=== PATIENT | male | born 1945 | race Caucasian/White ===

== ENCOUNTER → 2016-11-14 | Day surgery (SDC) | payer MEDICARE ==
[~2016-11-14] MED LIST: ALLO300T2 PO; CARV6.252 PO; GABA300C5 PO; HYDR25TA5 PO; LACTATED RINGER'S 1000 ML INJ 1,000 ML ONE; LISI10TA3 PO; MULT-65 PO; NORC5TAB PO; PANT40TA3 PO; PROPOFOL 200 MG/20 ML AMP IV ONE
--- NOTE | 2016-11-14 11:24 | GIPROC ---
[facility] [address] [place], [address] EGD PROCEDURE REPORT EXAM DATE: 11/14/2016 PATIENT NAME: Merrill Do MR #: [id number] BIRTHDATE: 1945 ATTENDING: Jefferson Bryan MD ORDER #: [id number] OFFICER LIEUTENANT: Rosanna Rueda STATUS: outpatient INDICATIONS: The patient is a 71 yr old male here for an EGD due to follow up on DU PROCEDURE PERFORMED: EGD w/ biopsy MEDICATIONS: None and Per Anesthesia. TOPICAL ANESTHETIC: CONSENT: The patient understands the risks and benefits of the procedure and understands that these risks include, but are not limited to: sedation, allergic reaction, infection, perforation and/or bleeding. Alternative means of evaluation and treatment include, among others: physical exam, x-rays, and/or surgical intervention. The patient elects to proceed with this endoscopic procedure. medical equipment was checked for proper function. Hand hygiene and appropriate measures for infection prevention was taken. After the risks, benefits and alternatives of the procedure were thoroughly explained, Informed consent was verified, confirmed and timeout was successfully executed by the treatment team. The patient was anesthetized with topical anesthesia and the EC-[id number] ([id number]) endoscope was introduced through the mouth and advanced to the second portion of the duodenum. Retroflexed views revealed no abnormalities The gastroscope was then slowly withdrawn and removed. ESOPHAGUS: Jessica esophagitis, this was biopsied. STOMACH: There was erythematous moderate gastritis in the gastric body and gastric antrum. Multiple biopsies were performed. The endoscopy was otherwise normal. ADVERSE EVENTS: There were no complications. IMPRESSIONS: 1. Jessica esophagitis, this was biopsied 2. There was erythematous gastritis in the gastric body and gastric antrum; multiple biopsies were performed 3. Normal endoscopy otherwise 4. Retroflexed views revealed no abnormalities RECOMMENDATIONS: 1. Await biopsy results. Biopsy results will not be ready for 7-10 days. If you don't hear from us in two weeks, call our office for biopsy results. 2. Follow-up: GI clinic 3 week(s) PATIENT CONDITION: stable DISPOSITION: Home REPEAT EXAM: Jefferson Bryan MD eSigned: Jefferson Bryan MD 11/14/2016 11:24 AM cc: Jina Espitia [facility] PATIENT NAME: Merrill Do MR#: [id number]
== END | disposition home or self-care (01) ==
LOC: ESDC 09:25
PROVIDERS: ATTEND Internal Medicine Gastroenterology
DX: K26.9 Duodenal ulcer, unspecified as acute or chronic, without hemorrhage or perforation (principal); B37.81 Candidal esophagitis; K29.70 Gastritis, unspecified, without bleeding
CPT/HCPCS: 00740; 43239; 88305; 88312; J7120

== ENCOUNTER 2016-11-22 12:54 | Day surgery (SDC) | payer MEDICARE ==
--- NOTE | 2016-11-22 15:19 | RADRPT ---
EXAM DATE/TIME: 11/22/2016 00:00 [facility] COMPARISON : No previous studies available for comparison. INDICATIONS : CONSULT FOR RENAL CRYOABLATION OBJECTIVE: Temperature: 97.6 Heart Rate: 83 Blood Pressure: 212/113 Respiratory: 22 Oximetry: 95 PNEUMONIA VACCINE: YES HISTORY OF PRESENT ILLNESS: Patient is a 71-year-old white male with incidental discovery of a 3.9 cm right renal mass under going CT scan for gastrointestinal bleeding. The patient did undergo endoscopy and cauterization for the gastro intestinal bleed with no recurrence. The patient has no history of hematuria, weight loss, fatigue or other constitutional symptoms. The patient was seen by Dr. Pettit recommend a consultation for cryoablation. The only other active medical problem is low back pain for which the patient is un dergoing epidural injections. There is no history of cardiovascular disease, cerebral vascular diseas e or peripheral artery disease. PAST MEDICAL HISTORY : 1. Hypertension. 2. RHEUMATOID ARTHRITIS 3. DUODENAL ULCER 4. GI BLEED PAST SURGICAL HISTORY : 1. EGD- CAUTERIZED BLEEDING ULCER SOCIAL HISTORY : Alcohol useFEW BEERS A WEEK Tobacco;former. ALLERGIES: 1. NKDA MEDICATIONS: 1. Coreg (Carvedilol) q.d. 2. GABAPENTIN q.d. 3. PROTONIX q.d. 4. HCTZ q.d. IMAGING STUDIES: Review of CT scan from July 2016 [facility] demonstrates a 3.9 cm mass in the anterior aspect of the right kidney extending into the renal pelvis as well as exophytic to the kidney approac omar within 5 mm of the ascending colon. No adenopathy is identified. There is a simple cyst in the r ight kidney measuring 4 cm. No solid left renal masses are identified. ASSESSMENT: The risks and benefits of the procedure were explained to the patient and his particularly the potential for damage to the colon or the renal collecting system secondary to the extent of the n eoplasm. They still wished to proceed with percutaneous treatment as opposed to open surgery. PLAN: The patient is to undergo cryoablation on 11/23/16 TIME SPENT: 30 minutes Julio Vaz MD on November 22, 2016 at 15:12 Board Certified Radiologist. This report was verified electronically.
[2016-11-23] MEDS ORDERED: PANT40TA3 PO (07:30)
[2016-11-23] MEDS ORDERED: HYDR25TA5 PO (07:30)
[2016-11-23] MEDS ORDERED: CARV6.252 PO (07:30)
[2016-11-23] MEDS ORDERED: GABA300C5 PO (07:30)
[2016-11-23] MEDS ORDERED: NORC5TAB PO (07:30)
[2016-11-23] MEDS ORDERED: ALLO300T2 PO (07:30)
[2016-11-23] MEDS ORDERED: MULT-65 PO (07:30)
[2016-11-23] MEDS ORDERED: LISI10TA3 PO (07:30)
== END 2016-11-22 14:30 | disposition home or self-care (01) ==
LOC: HROP 12:54 → HRIP 13:01 → HROP 14:30
PROVIDERS: ATTEND Urology
DX: N28.89 Other specified disorders of kidney and ureter (principal)

== ENCOUNTER 2016-11-23 06:44 | Day surgery (SDC) | payer MEDICARE ==
[~2016-11-23] VITALS: Ht 175.3 cm; Wt 109.1 kg
[2016-11-23 07:19] VITALS: BP 191/102; PULSE 72; RESP 20; TEMP 98; O2SAT 91
[2016-11-23] MEDS ORDERED: GABA300C5 PO (07:30)
[2016-11-23] MEDS ORDERED: CARV6.252 PO (07:30)
[2016-11-23] MEDS ORDERED: PANT40TA3 PO (07:30)
[2016-11-23] MEDS ORDERED: MULT-65 PO (07:30)
[2016-11-23] MEDS ORDERED: LISI10TA3 PO (07:30)
[2016-11-23] MEDS ORDERED: NORC5TAB PO (07:30)
[2016-11-23] MEDS ORDERED: ALLO300T2 PO (07:30)
[2016-11-23] MEDS ORDERED: HYDR25TA5 PO (07:30)
[2016-11-23 08:06] LABS: AUTOMATED NEUTROPHIL # 4.8 TH/MM3 (1.8-7.7); BASOPHIL % 0.5 % (0.0-2.0); EOSINOPHIL % 0.2 % (0.0-4.0); HEMATOCRIT 38.8 % (39.0-51.0); LYMPH % 20.7 % (9.0-44.0); LYMPHOCYTE # 1.4 TH/MM3 (1.0-4.8); MEAN CELL VOLUME 92.5 FL (80.0-100.0); MEAN CORPUSCULAR HEMOGLOBIN 31.1 PG (27.0-34.0); MEAN CORPUSCULAR HGB CONC 33.6 % (32.0-36.0); MONO % 9.3 % (0.0-8.0); NEUT % 69.3 % (16.0-70.0); PLATELET COUNT 178 TH/MM3 (150-450); RED BLOOD COUNT 4.19 MIL/MM3 (4.50-5.90); RED CELL DISTRIBUTION WIDTH 19.5 % (11.6-17.2); WHITE BLOOD COUNT 6.9 TH/MM3 (4.0-11.0)
[2016-11-23 08:09] LABS: HEMO FLAGS AUTO DIFF
[2016-11-23 08:15] LABS: APTT (PATIENT) 24.4 SEC (24.3-30.1); PROTHROMBIN TIME - PATIENT 10.9 SEC (9.8-11.6)
[2016-11-23] MEDS ORDERED: METOPROLOL TARTRATE 25 MG TAB PO PRN (08:15)
[2016-11-23] MEDS ORDERED: INSULIN HUMAN REGULAR 1,000 UNITS/10 ML VIAL SQ PRN (08:15)
[2016-11-23] MEDS ORDERED: SODIUM CHLORID 0.9% 500 ML IV PRN (08:15)
[2016-11-23] MEDS ORDERED: ceFAZolin 2 GM PREMIX 50 ML IV SCH (08:15)
[2016-11-23] MEDS ORDERED: POVIDONE IODINE 5% (ANTISEPSIS KIT) 4 APPLICATIONS EACH NARE PRN (08:15)
[2016-11-23] MEDS ORDERED: LACTATED RINGER'S 1000 ML IV PRN (08:15)
[2016-11-23] MEDS ORDERED: SODIUM CHLOR 0.9% 1000 ML INJ 1,000 ML IV SCH (08:15)
[2016-11-23] MEDS ORDERED: CHLORHEXIDINE GLUCONATE 2 % 1 PACK (2 CLOTHS) TOPICAL PRN (08:15)
[2016-11-23 08:17] LABS: BICARBONATE 23.5 MEQ/L (21.0-32.0); POTASSIUM 3.8 MEQ/L (3.5-5.1)
[2016-11-23 09:00] LABS: BANDS 3 % (0-6); EOSINOPHILS 2 % (0-4); METAMYELOCYTES 2 % (0-1); OVALOCYTES 1+ (NORMAL); POLYS (SEG NEUTROPHILS) 68 % (16-70); WBC DIFF SAMPLE 100
[2016-11-23 09:01] LABS: ACANTHOCYTES OCC (NORMAL); PLATELET ESTIMATE SMEAR NORMAL (NORMAL); PLATELET MORPHOLOGY NORMAL (NORMAL); SCAN/DIFF FINAL DIFF MANUAL
[2016-11-23] MEDS ORDERED: LIDOCAINE 1%/EPINEPHrine 1:100,000 SOLN 20 ML VIAL ONE (09:20)
[2016-11-23] MEDS ORDERED: MIDAZOLAM HCL 2 MG/2 ML VIAL ONE (12:14)
[2016-11-23] MEDS ORDERED: fentaNYL CITRATE 250 MCG/5 ML AMP ONE (12:14)
[2016-11-23] MEDS ORDERED: MORPHINE SULFATE 4 MG/ML INJ ONE (12:15)
[2016-11-23] MEDS ORDERED: *LABETALOL HCL 100 MG/20 ML VIAL PERIprocedural Use ONLY ONE (12:21)
[2016-11-23] MEDS ORDERED: PHENYLEPH/NS 1000 MCG/10 ML SYR IV ONE (12:25)
[2016-11-23] MEDS ORDERED: ePHEDrine/NS 25 MG/5 ML SYR IV ONE (12:25)
[2016-11-23] MEDS ORDERED: DEXAMETHASONE SOD PHOS PF 10 MG/ML VIAL IV ONE (12:25)
[2016-11-23] MEDS ORDERED: PROPOFOL 200 MG/20 ML AMP IV ONE (12:25)
[2016-11-23] MEDS ORDERED: ONDANSETRON HCL 4 MG/2 ML VIAL IV PUSH ONE (12:25)
[2016-11-23 12:40] VITALS: BP 182/94; PULSE 62; RESP 20; TEMP 97.5; O2SAT 92
[2016-11-23 12:55] VITALS: BP 157/92; PULSE 70; RESP 20; O2SAT 92
[2016-11-23 13:25] VITALS: BP 145/68; PULSE 69; RESP 20; O2SAT 92
--- NOTE | 2016-11-23 13:26 | RADRPT ---
EXAM DATE/TIME: 11/23/2016 09:50 [facility] COMPARISON: No previous studies available for comparison. INDICATIONS : Right renal mass. BIOPSY SITE: Right Anesthesia and pain control was provided by the Anesthesia department. Vancomycin within 2 hrs of procedure, Ancef (or alternative) within 1 hr of procedure start. DEVICE(S): 1.) 18 gauge Temno core biopsy needle MEDICAL HISTORY : Hypertension. SURGICAL HISTORY : None. ENCOUNTER: Initial ACUITY: 1 day PAIN SCORE: 0/10 LOCATION: Right A total of two core specimen(s) were obtained and sent to the laboratory for pathologic evaluation. PROCEDURE: 1. CT guided renal biopsy. 2. Conscious sedation with continuous EKG and oximetry monitoring. 3. EKG and oximetry remained stable throughout the procedure. Prior to the procedure informed consent was obtained. Any appropriate prior imaging studies were rev iewed. Using automated exposure control and adjustment of the mA and/or kV according to patient size, radiat ion dose was kept as low as reasonably achievable to obtain optimal diagnostic quality images. The site was prepped in a sterile fashion. Full sterile technique was used, including cap, mask, janeth rile gloves and gown and a large sterile sheet. Hand hygiene and 2% chlorhexidine and/or betadine/al cohol prep was utilized per protocol for cutaneous antisepsis. The skin and subcutaneous tissues wer e infiltrated with local anesthetic solution. With CT guidance the previously identified target was localized. Biopsy was performed using the presc ribed needle as above. Adequate hemostasis was obtained with compression at the puncture site. Follow-up CT scan reveals no hemorrhage. The patient tolerated the procedure well and there were no complications. The patient was returned to the Radiology Outpatient Unit in stable condition. CONCLUSION: Uncomplicated CT guided biopsy. Julio Vaz MD on November 23, 2016 at 13:25 Board Certified Radiologist. This report was verified electronically.
--- NOTE | 2016-11-23 13:27 | RADRPT ---
EXAM DATE/TIME: 11/23/2016 09:50 INDICATIONS : Right renal mass. Anesthesia and pain control was provided by the Anesthesia department. Vancomycin within 2 hrs of procedure, Ancef (or alternative) within 1 hr of procedure start. DEVICE(S): MEDICAL HISTORY : Hypertension. SURGICAL HISTORY : None. ENCOUNTER: Initial ACUITY: 1 day PAIN SCORE: 0/10 LOCATION: Right PROCEDURE : 1. CT guided cryoablation. Under sterile conditions and using aseptic technique with CT guidance the mass was localized and sati sfactory approach was taken to access the lesion. Using automated exposure control and adjustment of the mA and/or kV according to patient size, radiation dose was kept as low as reasonably achievable to obtain optimal diagnostic quality images. Yeti Data Cryoprobes were employed using percutaneous technique employing the prescribed probes. A freeze-thaw, freeze-thaw technique was employed and serial imaging demonstrated an ice ball encomp assing the entire lesion. Post procedure images demonstrate expected postoperative changes without e vidence of hematoma. CONCLUSION: Uncomplicated cryoablation as above. Julio Vaz MD on November 23, 2016 at 13:25 Board Certified Radiologist. This report was verified electronically.
--- NOTE | 2016-11-23 13:33 | PD.RAD ---
Post Procedure Progress Note Pre Procedure Diagnosis: (1) Renal cell carcinoma Post Procedure Diagnosis: (1) Renal cell carcinoma Procedure Date: Nov 23, 2016 Supervising Radiologist: Julio Vaz Anesthesia: General Plan of Activity Patient to Unit: ROPU Patient Condition: Good See PACS Report for procedural detail/treatment Biopsy Imaging Guidance: CT Side: Right Biopsy Procedure: Kidney Specimen: Core Biopsy (with cryoablation following) Julio Vaz MD Nov 23, 2016 13:33
[2016-11-23 13:55] VITALS: BP 141/91; PULSE 65; RESP 20; O2SAT 92
[2016-11-23 14:25] VITALS: BP 138/91; PULSE 65; RESP 20; O2SAT 92
--- NOTE | 2016-11-23 19:52 | EKG ---
Date Performed: 11/23/2016 Time Performed: 08:10:00 PTAGE: 71 years EKG: Sinus rhythm NORMAL ECG PREVIOUS TRACING : 03/02/2003 13.22 DOCTOR: Ashlyn Sun Interpretating Date/Time 11/23/2016 19:51:21
== END 2016-11-23 15:00 | disposition home or self-care (01) ==
LOC: HSDC 06:44 → HRIP 06:52 → HSDC 15:00
PROVIDERS: ATTEND Urology
DX: D30.01 Benign neoplasm of right kidney (principal); N28.89 Other specified disorders of kidney and ureter; I10 Essential (primary) hypertension; K26.9 Duodenal ulcer, unspecified as acute or chronic, without hemorrhage or perforation; K44.9 Diaphragmatic hernia without obstruction or gangrene
CPT/HCPCS: 00862; 50200; 50593; 77012; 77013; 80048; 85007; 85027; 85610; 85730; 88305; 93005; C2618; J0690; J1100; J2250; J2270; J2370; J2405; J3010; J7030

== ENCOUNTER 2016-12-01 12:49 | Day surgery (SDC) | payer MEDICARE ==
[~2016-12-01 12:49] MED LIST changes: -LACTATED RINGER'S 1000 ML INJ 1,000 ML ONE; -PROPOFOL 200 MG/20 ML AMP IV ONE
[2016-12-01 13:17] VITALS: BP 145/85; PULSE 102; RESP 20; TEMP 97.6; O2SAT 96
--- NOTE | 2016-12-01 14:06 | RADRPT ---
EXAM DATE/TIME: 12/01/2016 00:00 [facility] COMPARISON : INDICATIONS : f/u CRYO ABLATION OBJECTIVE: Temperature: 97.6 Heart Rate: 102 Blood Pressure: 145/85 Respiratory: 18 Oximetry: 96 PNEUMONIA VACCINE: NO HISTORY OF PRESENT ILLNESS: ? PAST MEDICAL HISTORY : 1. MASS ON RIGHT KIDNEY 2. DUODENAL ULCER 3. RIGHT INQUINAL SURGERY PAST SURGICAL HISTORY : 1. RIGHT INQUINAL HERNIA REPAIR 2. CRYO ABLATION MASS RIGHT KIDNEY SOCIAL HISTORY : ALLERGIES: 1. NKDA MEDICATIONS: NONE ASSESSMENT: The patient is post cryoablation of a right renal mass. The patient has no complaints post procedure. PLAN: The patient will followup with his urologist TIME SPENT: 10 minutes. Gage Ramirez MD on December 01, 2016 at 14:03 Board Certified Radiologist. This report was verified electronically.
== END 2016-12-01 13:35 | disposition home or self-care (01) ==
LOC: HRAD 12:49 → HRIP 13:11 → HRAD 13:35
DX: D30.01 Benign neoplasm of right kidney (principal); K26.9 Duodenal ulcer, unspecified as acute or chronic, without hemorrhage or perforation

== ENCOUNTER → 2017-02-20 | Outpatient (CLI) | payer MEDICARE ==
[~2017-02-20] MED LIST changes: +FLUT50SP EACH NARE
[2017-02-20 11:48] LABS: AUTOMATED NEUTROPHIL # 5.7 TH/MM3 (1.8-7.7); BASOPHIL % 0.6 % (0.0-2.0); EOSINOPHIL % 0.4 % (0.0-4.0); HEMATOCRIT 38.8 % (39.0-51.0); HEMO FLAGS DIFF FINAL; LYMPH % 15.6 % (9.0-44.0); LYMPHOCYTE # 1.2 TH/MM3 (1.0-4.8); MEAN CELL VOLUME 104.5 FL (80.0-100.0); MEAN CORPUSCULAR HEMOGLOBIN 36.1 PG (27.0-34.0); MEAN CORPUSCULAR HGB CONC 34.6 % (32.0-36.0); MONO % 8.6 % (0.0-8.0); NEUT % 74.8 % (16.0-70.0); PLATELET COUNT 212 TH/MM3 (150-450); RED BLOOD COUNT 3.71 MIL/MM3 (4.50-5.90); WHITE BLOOD COUNT 7.6 TH/MM3 (4.0-11.0)
[2017-02-20 12:09] LABS: BICARBONATE 21.4 MEQ/L (21.0-32.0); POTASSIUM 3.5 MEQ/L (3.5-5.1)
== END ==
LOC: CPRE 10:33
PROVIDERS: ATTEND Orthopaedic Surgery Orthopaedic Surgery of the Spine
DX: Z01.812 Encounter for preprocedural laboratory examination (principal); M48.06 Spinal stenosis, lumbar region
CPT/HCPCS: 36415; 80048; 85025

== ENCOUNTER → 2017-03-06 | Day surgery (SDC) | payer MEDICARE ==
[~2017-03-06] VITALS: Ht 175.3 cm; Wt 104.3 kg
[~2017-03-06] MED LIST changes: +*morphine SULFATE 8 MG/ML PERIprocedure ONLY ONE; +ACETAMINOPHEN/HYDROcodone 325 MG/5 MG TAB PO PRN; +BUPIVACAINE/EPINEPHRINE 0.25% 50 ML VIAL ONE; +CHLORHEXIDINE GLUCONATE 2 % 1 PACK (2 CLOTHS) TOPICAL PRN; +CHLORHEXIDINE GLUCONATE 4% SOLN 120 ML BTL TOPICAL SCH; +DEXAMETHASONE SOD PHOS 4 MG/ML VIAL ONE; +DO NOT ADM ANY ANTICOAGULANT DRUGS PRN; +GENTAMICIN SULFATE 80 MG/2 ML VIAL ONE; +HYDROmorphone HCL PF 2 MG/ML VIAL ONE; +INSULIN HUMAN REGULAR 1,000 UNITS/10 ML VIAL SQ PRN; +LACTATED RINGER'S 1000 ML IV PRN; +METOPROLOL TARTRATE 25 MG TAB PO PRN; +MIDAZOLAM HCL 2 MG/2 ML VIAL ONE; +NEOSTIGMINE 3 MG/3 ML SYR IV ONE; +ONDANSETRON HCL 4 MG/2 ML VIAL IV PUSH ONE; +PHENYLEPH/NS 1000 MCG/10 ML SYR IV ONE; +POVIDONE IODINE 5% (ANTISEPSIS KIT) 4 APPLICATIONS EACH NARE PRN; +PROPOFOL 200 MG/20 ML AMP IV ONE; +SODIUM CHLORID 0.9% 500 ML IV PRN; +ceFAZolin 2 GM PREMIX 50 ML IV SCH; +ceFAZolin INJ 1,000 MG VIAL IV ONE; +fentaNYL CITRATE 250 MCG/5 ML AMP ONE
[2017-03-06 10:29] VITALS: BP 147/89; PULSE 84; RESP 20; TEMP 97.8; O2SAT 96
[2017-03-06 17:32] VITALS: BP 131/78; PULSE 95; RESP 20; TEMP 98; O2SAT 94
--- NOTE | 2017-03-08 13:46 | MP ---
cc: MARIAJOSE BEAULIEU M.D., HEZI DATE OF SURGERY 03/06/2017 PREOPERATIVE DIAGNOSIS 1. L3-4 moderately severe spinal stenosis. 2. L4-5 moderately severe spinal stenosis, grade one spondylolisthesis. 3. L5-S1 central bulging disk, moderate degree of spinal Stenosis. 4. Lumbar spine degenerative disk disease osteoarthritis. 5. Bilateral lumbar radiculitis with bilateral lumbar with bilateral lower extremity weakness. POSTOPERATIVE DIAGNOSIS 1. L3-4 moderately severe spinal stenosis. 2. L4-5 moderately severe spinal stenosis, grade one spondylolisthesis. 3. L5-S1 central bulging disk, moderate degree of spinal Stenosis. 4. Lumbar spine degenerative disk disease osteoarthritis. 5. Bilateral lumbar radiculitis with bilateral lumbar with bilateral lower extremity weakness. PROCEDURE L3-4, L4-5, L5-S1 bilateral hemilaminectomy, foraminotomy, partial facetectomy, decompression of nerve roots. SURGEON Danna Beaulieu MD SPONGE FISHERMAN Keiko Self PA-C ESTIMATED BLOOD LOSS 300 cc DRAINS None CONDITION Stable PLAN OF ACTIVITY Per orders. PROCEDURE My journeyman operator assistant, Keiko Self PA-C was present for the entire surgical case. She was medically necessary for the entire case because of the complexity case and to facilitate the performance of the procedure. The SCIENTIFIC SOFTWARE DEVELOPER at the back table was not a skill set for this case to manipulate the instruments e.g. the multiple different types of soft tissue retractors, including nerve root retractors. The patient brought into the operating room and had satisfactory general endotracheal anesthesia by Dr. Uriel Dasilva of the Department of Anesthesia. The patient was carefully transferred onto the [facility] spinal frame. Because the patient's morbid obesity, great care was made to protect all pressure points. A localizing x-ray was used to identify the operative sites at L3-4, L4-5 and L5-S1. The wound was prepped and draped in the usual sterile manner. 25 cc of 0.25% Marcaine with epinephrine was used to anesthetize the operative site. A small midline incision made from L3-S1. All bleeders were coagulated. Dissection and a bilateral hemilaminectomy was formed at L5-S1. Dissection was carried bilateral foraminotomies and partial facetectomy performed. The patient was found to have a moderate degree of spinal stenosis. Inspection of the interspaces showed the patient to have a mild bulging disk with an osteophyte disk complex. The patient was found to have satisfactory decompression of the neurologic elements in this region. Next, dissection was carried to L4-5 under fluoroscopic guidance. A bilateral hemilaminectomy, foraminotomy and partial facetectomy, decompression of the nerve roots were performed. The patient was found to have moderately severe spinal stenosis at this segment. A very satisfactory decompression with no evidence of CSF leak. Further dissection was carried to the L3-4 interspace. Bilateral hemilaminectomy, foraminal and partial facetectomy was performed. Again, the patient was found to have moderately severe spinal stenosis at this region. The wound was irrigated with copious amounts of sterile saline antibiotic solution. The wound itself was dry. Surgiflo was used to make sure the patient had no evidence of any oozing or bleeding. The wound itself was dry with no evidence of any bleeding. No evidence of any cerebrospinal fluid leaks. The wound was closed in multiple layers with the fascia closed with #2 Tycron sutures and subcutaneous tissues closed in layers with 2-0 Vicryl and 3-0 Vicryl. Skin was approximated with interrupted 2-0 nylon. Sterile dressings were applied. The patient tolerated the procedure well and arrived in the Recovery Room in stable and satisfactory condition. MD FREDDY Nixon/HELLEN /3:51 PM /1:24 PM
== END | disposition home or self-care (01) ==
LOC: HSDC 09:35
PROVIDERS: ATTEND Orthopaedic Surgery Orthopaedic Surgery of the Spine
DX: M48.06 Spinal stenosis, lumbar region (principal); M48.07 Spinal stenosis, lumbosacral region; M51.16 Intervertebral disc disorders with radiculopathy, lumbar region; I10 Essential (primary) hypertension
CPT/HCPCS: 00630; 63047; 63048; 76000; J0690; J1100; J1580; J2250; J2270; J2370; J2405; J2710; J3010; J7120; J1170

== ENCOUNTER 2017-04-12 17:58 | Observation (INO) | payer MEDICARE ==
[~2017-04-12] VITALS: Ht 175.3 cm; Wt 107.8 kg
[~2017-04-12 17:58] MED LIST changes: -*morphine SULFATE 8 MG/ML PERIprocedure ONLY ONE; -ACETAMINOPHEN/HYDROcodone 325 MG/5 MG TAB PO PRN; -BUPIVACAINE/EPINEPHRINE 0.25% 50 ML VIAL ONE; -CHLORHEXIDINE GLUCONATE 2 % 1 PACK (2 CLOTHS) TOPICAL PRN; -CHLORHEXIDINE GLUCONATE 4% SOLN 120 ML BTL TOPICAL SCH; -DEXAMETHASONE SOD PHOS 4 MG/ML VIAL ONE; -DO NOT ADM ANY ANTICOAGULANT DRUGS PRN; -GENTAMICIN SULFATE 80 MG/2 ML VIAL ONE; -HYDROmorphone HCL PF 2 MG/ML VIAL ONE; -INSULIN HUMAN REGULAR 1,000 UNITS/10 ML VIAL SQ PRN; -LACTATED RINGER'S 1000 ML IV PRN; -METOPROLOL TARTRATE 25 MG TAB PO PRN; -MIDAZOLAM HCL 2 MG/2 ML VIAL ONE; -NEOSTIGMINE 3 MG/3 ML SYR IV ONE; -ONDANSETRON HCL 4 MG/2 ML VIAL IV PUSH ONE; -PANT40TA3 PO; -PHENYLEPH/NS 1000 MCG/10 ML SYR IV ONE; -POVIDONE IODINE 5% (ANTISEPSIS KIT) 4 APPLICATIONS EACH NARE PRN; -PROPOFOL 200 MG/20 ML AMP IV ONE; -SODIUM CHLORID 0.9% 500 ML IV PRN; -ceFAZolin 2 GM PREMIX 50 ML IV SCH; -ceFAZolin INJ 1,000 MG VIAL IV ONE; -fentaNYL CITRATE 250 MCG/5 ML AMP ONE
[2017-04-12] MEDS ORDERED: GADODIAMIDE PF 287 MG/ML 5 ML VIAL (for RAD MRI) IV PUSH ONE (17:59)
[2017-04-12 18:10] VITALS: BP 129/94; PULSE 96; RESP 24; TEMP 98.1; O2SAT 95
[2017-04-12] MEDS ORDERED: PROT40TA PO (20:59)
[2017-04-12] MEDS ORDERED: BACT800T5 PO (20:59)
[2017-04-12] MEDS ORDERED: POTA10CA PO (21:00)
--- NOTE | 2017-04-12 21:03 | PD ---
HPI Chief Complaint: Back/ Neck Pain or Injury Time Seen by Provider: 20:44 Travel History International Travel<30 days: No Contact w/Intl Traveler<30days: No Traveled to known affect area: No History of Present Illness HPI 72yo M with recent back surgery by Dr. Janak Chinchilla presents to the ED with c/ o sudden onset left hip pain that radiates down left buttocks and posterior thigh for 3-4 days. States pain is sharp, and is sudden onset. Denies any fever, trauma, focal weakness or numbness, chest pain, sob, n/v, abdominal pain. States he usually can walk with a walker but pain has gotten so bad that he cant walk now. Pt saw his PMD and was started on bactrim last week because of possible infection in the back. Pt last follow up with Dr. Chinchilla after that. Pt denies any back pain and states there is always a little yellow oozing but not more than before. Pt had L3-L4, L4-L5, L5-S1 bilateral hemilaminectomy, foraminectomy, partial facetectomy, decompression or nerve root on 03/06/17. PFSH Past Medical History Cancer: No Cardiovascular Problems: Yes Diabetes: No Endocrine: No Genitourinary: No Hepatitis: No Hiatal Hernia: Yes Immune Disorder: No Musculoskeletal: Yes (LUMBAR, PAIN AND NUMBNESS DOWN BOTH LEGS) Neurologic: No Psychiatric: No Reproductive: No Respiratory: No Thyroid Disease: No Past Surgical History Abdominal Surgery: Yes (Laproscopic abd HERNIA REPAIR, ) AICD: No Cardiac Surgery: No Ear Surgery: No Endocrine Surgery: No Eye Surgery: No Genitourinary Surgery: Yes (R RENAL CRYO FOR MASS) Gynecologic Surgery: No Joint Replacement: No Oral Surgery: No Pacemaker: No Thoracic Surgery: No Social History Tobacco Use: No Substance Use: No Allergies-Medications (Allergen,Severity, Reaction): Coded Allergies: No Known Allergies (Verified , 04/12/17) Uncoded Allergies: NKA (Allergy, Unknown, 04/08/03) Reported Meds & Prescriptions Reported Meds & Active Scripts Active Medrol Dosepak (Methylprednisolone) 4 Mg Dspk 4 Mg PO DIRECTED Per Pharmacist direction Reported Potassium Chloride ER (Potassium Chloride) 10 Meq Cap 10 Meq PO DAILY Protonix (Pantoprazole Sodium) 40 Mg Tab 40 Mg PO DAILY Bactrim DS (Sulfamethoxazole-Trimethoprim) 800-160 Mg Tab 1 Tab PO BID Fluticasone Nasal [place] 50 Mcg/Act Naspr 50 Mcg EACH NARE BID 50 mcg/spray Multi-Vitamin Daily (Multiple Vitamin) 1 Tab Tab 1 Tab PO DAILY Lisinopril 10 Mg Tab 10 Mg PO DAILY Hydrochlorothiazide 25 Mg Tab 25 Mg PO DAILY [place] (Hydrocodone-Acetaminophen) 5-325 mg Tab 1 Tab PO Q8HR PRN Gabapentin 300 Mg Cap 300 Mg PO BID Carvedilol 6.25 Mg Tab 6.25 Mg PO BID Allopurinol 300 Mg Tab 300 Mg PO DAILY Review of Systems Except as stated in HPI: all other systems reviewed are Neg Physical Exam Narrative GENERAL: 72yo M in mild distress. SKIN: Focused skin assessment warm/dry. HEAD: Atraumatic. Normocephalic. EYES: Pupils equal and round. No scleral icterus. No injection or drainage. ENT: No nasal bleeding or discharge. Mucous membranes pink and moist. NECK: Trachea midline. No JVD. CARDIOVASCULAR: Regular rate and rhythm. No murmur appreciated. RESPIRATORY: No accessory muscle use. Clear to auscultation. Breath sounds equal bilaterally. GASTROINTESTINAL: Abdomen soft, non-tender, nondistended. No rebound tenderness or guarding. BACK: +Surgical scar L3-S1. Mild erythema. No ttp. No purulent discharge expressed or fluctuance. Although there is yellow discharge noted on the dressing. MUSCULOSKELETAL: Left buttocks: No erythema, no ecchymoses. +Diffuse ttp. NEUROLOGICAL: Awake and alert. No obvious cranial nerve deficits. Motor grossly within normal limits. Normal speech. PSYCHIATRIC: Appropriate mood and affect; insight and judgment normal. Data Data Last Documented VS Vital Signs Date Time Temp Pulse Resp B/P (MAP) Pulse Ox O2 Delivery O2 Flow Rate FiO2 04/13/17 00:27 98.1 81 16 131/77 (95) 98 Room Air Orders Orders Complete Blood Count With Diff (04/12/17 20:54) Basic Metabolic Panel (Bmp) (04/12/17 20:54) Mri L Spine W&W/O Contrast (04/12/17 ) Mri Joint Hip W&W/O Contrast (04/12/17 ) Gadodiamide Pf Inj (Omniscan Pf Inj) (04/12/17 17:59) Ondansetron Inj (Zofran Inj) (04/12/17 23:45) Morphine Inj (Morphine Inj) (04/12/17 23:45) Sodium Chlorid 0.9% 500 Ml Inj (Ns 500 M (04/13/17 00:15) Diazepam (Valium) (04/13/17 00:45) Morphine Inj (Morphine Inj) (04/13/17 01:15) Place In Observation (04/13/17 ) Vital Signs (Adult) Q4H (04/13/17 01:38) Activity Oob With Assistance (04/13/17 01:38) Resaw Carriage Operator / Telemetry .CONTINUOUS (04/13/17 01:38) Sodium Chloride 0.9% Flush (Ns Flush) (04/13/17 01:45) Sodium Chloride 0.9% Flush (Ns Flush) (04/13/17 09:00) Pt Request For Service (04/13/17 01:38) Case Management Consult (04/13/17 01:38) Naloxone Inj (Narcan Inj) (04/13/17 01:45) Morphine Inj (Morphine Inj) (04/13/17 01:45) Consult Orthopedic (04/13/17 ) Admit Order (Ed Use Only) (04/13/17 01:40) Labs Laboratory Tests Test 04/12/17 21:20 White Blood Count 9.5 TH/MM3 Red Blood Count 3.18 MIL/MM3 Hemoglobin 10.6 GM/DL Hematocrit 32.5 % Mean Corpuscular Volume 102.4 FL Mean Corpuscular Hemoglobin 33.3 PG Mean Corpuscular Hemoglobin Concent 32.5 % Red Cell Distribution Width 14.4 % Platelet Count 372 TH/MM3 Mean Platelet Volume 8.5 FL Neutrophils (%) (Auto) 77.6 % Lymphocytes (%) (Auto) 14.8 % Monocytes (%) (Auto) 6.4 % Eosinophils (%) (Auto) 0.2 % Basophils (%) (Auto) 1.0 % Neutrophils # (Auto) 7.4 TH/MM3 Lymphocytes # (Auto) 1.4 TH/MM3 Monocytes # (Auto) 0.6 TH/MM3 Eosinophils # (Auto) 0.0 TH/MM3 Basophils # (Auto) 0.1 TH/MM3 CBC Comment DIFF FINAL Differential Comment Blood Urea Nitrogen 24 MG/DL Creatinine 1.16 MG/DL Random Glucose 126 MG/DL Calcium Level 8.5 MG/DL Sodium Level 128 MEQ/L Potassium Level 4.5 MEQ/L Chloride Level 99 MEQ/L Carbon Dioxide Level 21.4 MEQ/L Anion Gap 8 MEQ/L Estimat Glomerular Filtration Rate 62 ML/MIN MDM Medical Decision Making Medical Screen Exam Complete: Yes Emergency Medical Condition: Yes Differential Diagnosis Abscess vs. sciatica vs. musculoskeletal pain Narrative Course 72yo M with left hip pain for 3-4 days. Pt has no fever, trauma, no back pain, no focal weakness or numbness. However, he did have yellow drainage that was seen on his dressing in his back. Not able to express any. MRI left hip showed abnormal T2 signal in adductor muscles. Musculoskeletal strain and disruption or hamstring tendon. MRI LS showed collection in L4 seroma or abscess. Discussed MRI findings and case with Dr. Rafael Beaulieu who is covering for Dr. Janak Beaulieu and he recommends discharging the patient with medrol dose rene and follow up in the office tomorrow. Pt given morphine and states it did not help so pt given valium. Pt is still unable to ambulate, will give another dose of morphine, will have to admit for intractable hip pain as he is unable to ambulate. Pt states he cannot ambulate and his cannot drive at night and there is no way for him to go home. This is an unsafe discharge. Discussed with Dr. Crockett and accepted to her service. Diagnosis Primary Impression: Intractable pain Admitting Information Admitting Physician Requests: Observation Scripts Methylprednisolone Dosepak (Medrol Dosepak) 4 Mg Dspk 4 MG PO DIRECTED, #1 DSPK 0 Refills Per Pharmacist direction Prov: April Rosario DO 04/13/17 April Rosario DO Apr 12, 2017 21:03
[2017-04-12 22:00] LABS: AUTOMATED NEUTROPHIL # 7.4 TH/MM3 (1.8-7.7); BASOPHIL # 0.1 TH/MM3 (0-0.2); EOSINOPHIL % 0.2 % (0.0-4.0); HEMATOCRIT 32.5 % (39.0-51.0); HEMO FLAGS DIFF FINAL; LYMPH % 14.8 % (9.0-44.0); LYMPHOCYTE # 1.4 TH/MM3 (1.0-4.8); MEAN CELL VOLUME 102.4 FL (80.0-100.0); MEAN CORPUSCULAR HEMOGLOBIN 33.3 PG (27.0-34.0); MEAN CORPUSCULAR HGB CONC 32.5 % (32.0-36.0); MONO % 6.4 % (0.0-8.0); NEUT % 77.6 % (16.0-70.0); PLATELET COUNT 372 TH/MM3 (150-450); RED BLOOD COUNT 3.18 MIL/MM3 (4.50-5.90); RED CELL DISTRIBUTION WIDTH 14.4 % (11.6-17.2); WHITE BLOOD COUNT 9.5 TH/MM3 (4.0-11.0)
[2017-04-12 22:17] LABS: BICARBONATE 21.4 MEQ/L (21.0-32.0); POTASSIUM 4.5 MEQ/L (3.5-5.1)
[2017-04-12] MEDS ORDERED: MORPHINE SULFATE 2 MG/ML INJ IV PUSH ONE (23:30)
[2017-04-12] MEDS ORDERED: MORPHINE SULFATE 4 MG/ML INJ IV PUSH ONE (23:45)
[2017-04-12] MEDS ORDERED: ONDANSETRON HCL 4 MG/2 ML VIAL IV PUSH ONE (23:45)
--- NOTE | 2017-04-12 23:55 | RADRPT ---
EXAM DATE/TIME: 04/12/2017 22:26 [facility] COMPARISON: No previous studies available for comparison. INDICATIONS : Abscess. CONTRAST: 20 cc Omniscan (gadodiamide) IV MEDICAL HISTORY : Hypertension. SURGICAL HISTORY : LSP sx, Hernia sx. ENCOUNTER: Initial ACUITY: 1 day PAIN SCORE: 10/10 LOCATION: Bilateral lower back region. TECHNIQUE: Multiplanar, multisequence MRI examination was performed without contrast and after the intravenous a dministration of gadolinium. FINDINGS: BONE/CARTILAGE: Bone marrow signal is homogeneous. Articular cartilage signal is within normal limits. LABRUM: Within normal limits. MUSCLES/TENDONS: Increased T2 signal intensity in the adductor muscle bellies. Similar findings are identified in the musculotendinous region of the hamstring. In addition, the tendon of the hamstring appears to have av ulsed off of the ischium. MISCELLANEOUS: No evidence of joint effusion. POST-CONTRAST: Enhancement in the region of increased T2 signal intensity. No abscess identified. CONCLUSION: 1. Abnormally increased T2 signal intensity in the adductor muscles and the musculotendinous junction of the hamstring of the left leg. I believe the tendon of the hamstring is avulsed off of the ischiu m as well. Findings are characteristic of muscular strain and disruption of the hamstring tendon. Is there a history of recent trauma? 2. No abscess identified. Corona Stephens MD on April 12, 2017 at 23:44 Board Certified Radiologist. This report was verified electronically.
[2017-04-13] MEDS ORDERED: SODIUM CHLORID 0.9% 500 ML INJ 500 ML IV ONE (00:15)
--- NOTE | 2017-04-13 00:16 | RADRPT ---
EXAM DATE/TIME: 04/12/2017 22:26 [facility] COMPARISON: No previous studies available for comparison. INDICATIONS : Abscess. CONTRAST: 20 cc Omniscan (gadodiamide) IV MEDICAL HISTORY : Hypertension. SURGICAL HISTORY : Hernia sx, Lumbar back sx. ENCOUNTER: Initial ACUITY: 1 day PAIN SCORE: 10/10 LOCATION: Bilateral lower back region. TECHNIQUE: Multiplanar multisequence MRI of the lumbar spine was performed with and without contrast. FINDINGS: Sagittal T1 pre-and postcontrast, T2 and inversion recovery images show a large, 4.5 x 9.2 cm fluid c ollection in the subcutaneous and deep tissues of the lower lumbar spine posterior to L2-L5 and cente red at the L4 level. There appears to be prior laminectomy at L4. Following contrast administration, there is enhancement around the fluid collection suggesting an inflammatory process. Punctate areas o f absent signal may suggest a small amount of air within the collection. Degenerative disc disease is most prominent at L1 to with prominent anterior and posterior spurs. The latter do encroach on the s willian canal and result in some degree of spinal stenosis. Vertebral body heights are maintained witho ut fracture or listhesis. 3.4 cm cyst associated with the inferior cortex of the right kidney. Detail ed axial images as follows: . T12-L1: Diffuse disc bulge with spurring. There is moderate central spinal stenosis with no obvious cord comp romise. Facet hypertrophy further encroaches on the spinal canal. Narrowing of the left neural forami na may compromise the left L1 nerve root. Right neural foramina is adequate. L1-L2: Facet hypertrophy encroaches on the spinal canal without stenosis. Both neural foramina are adequate L2-L3: Facet hypertrophy encroaches on the spinal canal with no central spinal stenosis. Both neural foramin a are adequate. Fluid collection identified posterior to the spinous process L3-L4: Bilateral facet hypertrophy with mild spinal stenosis. Spinal canal and neural foramina remain adequa te. Fluid collection posterior to the spinous process L4-L5: Diffuse disc bulge with facet hypertrophy. There is a decompressive laminectomy. Enhancement of the e pidural space may be related to recent intervention. There is still some degree of central spinal janeth nosis. I believe the neural foramina remain adequate. Fluid collection appears to be centered posteri or to the epidural space at this level. Bilateral facet synovial cyst projects posteriorly and do not encroach on or compromise the spinal canal. L5-S1: Diffuse disc bulge with facet hypertrophy encroaches on the spinal canal. I believe there is a 5-6 mm synovial cyst of the left articulating facets which encroaches on the spinal canal but does not resu lt in significant stenosis. Narrowing of the left neural foramina may compromise the left L5 nerve ro ot. Right neural foramina is adequate CONCLUSION: . 1. Large, complex fluid collection posterior to the spine appears to be centered at L4. Findings are characteristic of abscess or seroma. 2. Postsurgical changes posterior to L4. However, there is still some facet hypertrophy and a diffuse disc bulge which does result in some degree of spinal stenosis at this level. 3. Additional area of spinal stenosis at L1 to do to marginal spurring and facet hypertrophy. Some en croachment on the spinal canal at every lumbar level with no additional areas of significant stenosis . 4. Foramina narrowing which may be severe enough to compromise the left L1 and left L5 nerve roots. 5. Synovial cysts of the articulating facets bilaterally at L4-5 and leftward at L5-S1. The latter do es encroach on the spinal canal but does not result in significant stenosis. Corona Stephens MD on April 13, 2017 at 0:00 Board Certified Radiologist. This report was verified electronically.
[2017-04-13 00:27] VITALS: BP 131/77; PULSE 81; RESP 16; TEMP 98.1; O2SAT 98
[2017-04-13] MEDS ORDERED: DIAZEPAM 5 MG TAB PO ONE (00:45)
[2017-04-13] MEDS ORDERED: MORPHINE SULFATE 8 MG/ML INJ IV PUSH ONE (01:15)
[2017-04-13] MEDS ORDERED: MEDR4PAK PO (01:20)
[2017-04-13] MEDS ORDERED: HYDR-3533 PO (01:20)
[2017-04-13] MEDS ORDERED: MORPHINE SULFATE 2 MG/ML INJ IV PUSH PRN (01:45)
[2017-04-13] MEDS ORDERED: SODIUM CHLORIDE 0.9% FLUSH 10 ML FLUSH IV FLUSH PRN (01:45)
[2017-04-13] MEDS ORDERED: NALOXONE HCL 0.4 MG/ML AMP IV PUSH PRN (01:45)
--- NOTE | 2017-04-13 05:21 | HHI.HP ---
HPI Service [facility] Primary Care Physician Jina Turner M.D. Admission Diagnosis Intractable hip pain Diagnoses: Chief Complaint: left hip pain Travel History International Travel<30 Days: No Contact w/Intl Traveler <30 Da: No Traveled to Known Affected Are: No History of Present Illness Written by DAYSI Rosario acting as scribe for [Bon] on 04/13/17 at 05: 08. 72 y/o male with a history of HTN, gout, and spinal surgery 1 month ago presented to the ED with complaints of left hip pain. He went to see his PCP Dr. Turner for pain and leg swelling and he noticed redness at the surgery site, and drainage. PCP put him on Bactrim and Dr. Chinchilla aspirated the site for culture. Over the weekend the pain continued to get worse in his left hip, with associated loss of appetite and inability to walk. He denies any chest pain, sob , or fever. Patient currently does have chills but states it is cold in his room. Patient states he is supposed to have a 2-D echo and ultrasound as large as Monday at [facility] per Review of Systems Except as stated in HPI: all other systems reviewed are Neg Past Family Social History Past Medical History HTN Gout Past Surgical History Spinal surgery Duodenal ulcer repair Kidney mass removal Reported Medications Reported Meds & Active Scripts Active Lortab (Hydrocodone-Acetaminophen) 5-325 Mg Tab 1 Tab PO Q6H PRN Medrol Dosepak (Methylprednisolone) 4 Mg Dspk 4 Mg PO DIRECTED Per Pharmacist direction Reported Potassium Chloride ER (Potassium Chloride) 10 Meq Cap 10 Meq PO DAILY Protonix (Pantoprazole Sodium) 40 Mg Tab 40 Mg PO DAILY Bactrim DS (Sulfamethoxazole-Trimethoprim) 800-160 Mg Tab 1 Tab PO BID Fluticasone Nasal [place]aine 50 Mcg/Act Naspr 50 Mcg EACH NARE BID 50 mcg/spray Multi-Vitamin Daily (Multiple Vitamin) 1 Tab Tab 1 Tab PO DAILY Lisinopril 10 Mg Tab 10 Mg PO DAILY Hydrochlorothiazide 25 Mg Tab 25 Mg PO DAILY Cozad (Hydrocodone-Acetaminophen) 5-325 mg Tab 1 Tab PO Q8HR PRN Gabapentin 300 Mg Cap 300 Mg PO BID Carvedilol 6.25 Mg Tab 6.25 Mg PO BID Allopurinol 300 Mg Tab 300 Mg PO DAILY Allergies: Coded Allergies: No Known Allergies (Verified , 04/12/17) Uncoded Allergies: NKA (Allergy, Unknown, 04/08/03) Active Ordered Medications Current Medications Medications (Trade) Dose Ordered Sig/Samia Route Start Time Stop Time Status Last Admin (NS Flush) 2 ml UNSCH PRN IV FLUSH 04/13/17 01:45 (NS Flush) 2 ml BID IV FLUSH 04/13/17 09:00 (Narcan Inj) 0.4 mg UNSCH PRN IV PUSH 04/13/17 01:45 (Morphine Inj) 2 mg Q3H PRN IV PUSH 04/13/17 01:45 Family History Patient denies any family history, no heart disease or cancer Social History Tobacco use: Quit years ago Alcohol use: Occasionally Illicit drug use: Denies Physical Exam Vital Signs Vital Signs Date Time Temp Pulse Resp B/P (MAP) Pulse Ox O2 Delivery O2 Flow Rate FiO2 04/13/17 03:15 16 04/13/17 00:27 98.1 81 16 131/77 (95) 98 Room Air 04/13/17 00:26 16 04/12/17 21:04 16 04/12/17 18:10 98.1 96 24 129/94 (106) 95 Room Air Physical Exam GENERAL: This is a well-nourished, well-developed patient, in no apparent distress. SKIN: Lumbar wound with clear drainage. Warm and dry. HEAD: Atraumatic. Normocephalic. EYES: Pupils equal round and reactive. ENT: Nose without bleeding, purulent drainage or septal hematoma. Airway patent. NECK: Trachea midline. No JVD or lymphadenopathy. CARDIOVASCULAR: Regular rate and rhythm without murmurs, gallops, or rubs. RESPIRATORY: Clear to auscultation. Breath sounds equal bilaterally. No wheezes , rales, or rhonchi. GASTROINTESTINAL: Abdomen soft, non-tender, nondistended. No hepato-splenomegaly , or palpable masses. No guarding. MUSCULOSKELETAL: Bilateral lower extremity edema +1. Left hip tenderness. No calf tenderness. NEUROLOGICAL: Awake and alert. Motor and sensory grossly within normal limits. Weak lower extremities. Normal speech. Laboratory Laboratory Tests Test 04/12/17 21:20 White Blood Count 9.5 Red Blood Count 3.18 Hemoglobin 10.6 Hematocrit 32.5 Mean Corpuscular Volume 102.4 Mean Corpuscular Hemoglobin 33.3 Mean Corpuscular Hemoglobin Concent 32.5 Red Cell Distribution Width 14.4 Platelet Count 372 Mean Platelet Volume 8.5 Neutrophils (%) (Auto) 77.6 Lymphocytes (%) (Auto) 14.8 Monocytes (%) (Auto) 6.4 Eosinophils (%) (Auto) 0.2 Basophils (%) (Auto) 1.0 Neutrophils # (Auto) 7.4 Lymphocytes # (Auto) 1.4 Monocytes # (Auto) 0.6 Eosinophils # (Auto) 0.0 Basophils # (Auto) 0.1 CBC Comment DIFF FINAL Differential Comment Blood Urea Nitrogen 24 Creatinine 1.16 Random Glucose 126 Calcium Level 8.5 Sodium Level 128 Potassium Level 4.5 Chloride Level 99 Carbon Dioxide Level 21.4 Anion Gap 8 Estimat Glomerular Filtration Rate 62 Result Diagram: 04/12/17211904/12/172119 Imaging Last Impressions Lumbar Spine MRI 04/12/17 0000 Signed Impressions: Service Date/Time: Wednesday, April 12, 2017 22:26 - CONCLUSION: . 1. Large, complex fluid collection posterior to the spine appears to be centered at L4. Findings are characteristic of abscess or seroma. 2. Postsurgical changes posterior to L4. However, there is still some facet hypertrophy and a diffuse disc bulge which does result in some degree of spinal stenosis at this level. 3. Additional area of spinal stenosis at L1 to do to marginal spurring and facet hypertrophy. Some encroachment on the spinal canal at every lumbar level with no additional areas of significant stenosis. 4. Foramina narrowing which may be severe enough to compromise the left L1 and left L5 nerve roots. 5. Synovial cysts of the articulating facets bilaterally at L4-5 and leftward at L5-S1. The latter does encroach on the spinal canal but does not result in significant stenosis. Corona Stephens MD Hip MRI 04/12/17 0000 Signed Impressions: Service Date/Time: Wednesday, April 12, 2017 22:26 - CONCLUSION: 1. Abnormally increased T2 signal intensity in the adductor muscles and the musculotendinous junction of the hamstring of the left leg. I believe the tendon of the hamstring is avulsed off of the ischium as well. Findings are characteristic of muscular strain and disruption of the hamstring tendon. Is there a history of recent trauma? 2. No abscess identified. MD Roberto Bradley VTE Risk Assessment Maritzai VTE Risk Assessment: Mod/High Risk (score >= 2) Caprini Risk Assessment Model Point Value = 1 Point Value = 2 Point Value = 3 Point Value = 5 Age 41-60 Minor surgery BMI > 25 kg/m2 Swollen legs Varicose veins or History of unexplained or recurrent spontaneous Oral contraceptives or hormone replacement Sepsis (< 1 month) Serious lung disease, including pneumonia (< 1 month) Abnormal pulmonary function Acute myocardial infarction Congestive heart failure (< 1 month) History of inflammatory bowel disease Medical patient at bed rest Age 61-74 Arthroscopic surgery Major open surgery (> 45 min) Laparoscopic surgery (> 45 min) Malignancy Confined to bed (> 72 hours) Immobilizing plaster cast Central venous access Age >= 75 History of VTE Family history of VTE Factor V Leiden Prothrombin [id number] Lupus anticoagulant Anticardiolipin antibodies Elevated serum homocysteine Heparin-induced thrombocytopenia Other congenital or acquired thrombophilia Stroke (< 1 month) Elective arthroplasty Hip, pelvis, or leg fracture Acute spinal cord injury (< 1 month) Prophylaxis Regimen Total Risk Factor Score Risk Level Prophylaxis Regimen 0-1 Low Early ambulation 2 Moderate Order ONE of the following: *Sequential Compression Device (SCD) *Heparin 5000 units SQ BID 3-4 Higher Order ONE of the following medications: *Heparin 5000 units SQ TID *Enoxaparin/Lovenox 40 mg SQ daily (WT < 150 kg, CrCl > 30 mL/min) *Enoxaparin/Lovenox 30 mg SQ daily (WT < 150 kg, CrCl > 10-29 mL/min) *Enoxaparin/Lovenox 30 mg SQ BID (WT < 150 kg, CrCl > 30 mL/min) AND/OR *Sequential Compression Device (SCD) 5 or more Highest Order ONE of the following medications: *Heparin 5000 units SQ TID (Preferred with Epidurals) *Enoxaparin/Lovenox 40 mg SQ daily (WT < 150 kg, CrCl > 30 mL/min) *Enoxaparin/Lovenox 30 mg SQ daily (WT < 150 kg, CrCl > 10-29 mL/min) *Enoxaparin/Lovenox 30 mg SQ BID (WT < 150 kg, CrCl > 30 mL/min) AND *Sequential Compression Device (SCD) Assessment and Plan Problem List: (1) Left hip pain ICD Code: M25.552 - Pain in left hip Status: Acute (2) Spinal abscess ICD Code: M46.20 - Osteomyelitis of vertebra, site unspecified (3) HTN (hypertension) ICD Code: I10 - Essential (primary) hypertension Assessment and Plan 72 y/o male with a history of HTN, gout, and spinal surgery 1 month ago presented to the ED with complaints of left hip pain. Spinal abscess MRI lumbar spine reviewed and shows a large complex fluid collection posterior to the spine andL4, characteristics of a abscess or seroma -Consult orthopedic, Dr. Chinchilla will see patient in a.m. -Patient was on antibiotics outpatient, Bactrim, will hold for now until evaluated by orthopedics, no leukocytosis or fevers. -Blood cultures and wound culture ordered Left hip pain, she denies any recent trauma MRI hip reviewed and shows abnormally increased signal intensity in the abductor muscles in the muscle tendinous junction of the hamstring on the left, most characteristics of a muscle strain and disruption of the hamstring tendon. -Pain management with morphine IV -PT eval and treat Hypertension, chronic, currently stable: Reorder home medications, monitor vitals DVT prophylaxis: SCDs, chemical for now until evaluated by orthopedics This note was transcribed by scribe [Marilee Sahni]. I, Dr. Sary Crockett personally performed the history, physical exam, and medical decision making; and confirmed the accuracy of the information in the transcribed note. Authenticated by Dr. Sary Crockett on 04/13/17 at 05:08. Discussed Condition With Patient and Marilee Fernandez Apr 13, 2017 05:21 Sary Crockett MD Apr 19, 2017 06:47
[2017-04-13 06:26] VITALS: BP 146/62; PULSE 71; RESP 18; TEMP 98.4; O2SAT 97
[2017-04-13 07:21] VITALS: BP 132/70; PULSE 69; RESP 14; O2SAT 94
[2017-04-13] MEDS ORDERED: VANCOMYCIN INJ 1,000 MG in SODIUM CHLOR 0.9% 250 ML INJ 250 ML IV ONE (08:15)
[2017-04-13] MEDS ORDERED: DEXTROSE 5%-LACTATED RING INJ 1,000 ML IV SCH (08:15)
[2017-04-13] MEDS ORDERED: ceFAZolin 2 GM PREMIX 50 ML IV ONE (08:15)
[2017-04-13] MEDS ORDERED: SODIUM CHLORIDE 0.9% FLUSH 10 ML FLUSH IV FLUSH SCH (09:00)
[2017-04-13] MEDS: CARVEDILOL 6.25 MG TAB PO SCH ×2 (09:09→19:58)
[2017-04-13] MEDS: PANTOPRAZOLE SOD 40 MG DELAYED RELEASE TAB PO SCH (09:11)
[2017-04-13] MEDS: HYDROCHLOROTHIAZIDE 25 MG TAB PO SCH (09:11)
[2017-04-13] MEDS: GABAPENTIN 300 MG CAP PO SCH ×2 (09:11→19:58)
[2017-04-13] MEDS: LISINOPRIL 10 MG TAB PO SCH (09:12)
[2017-04-13] MEDS: POTASSIUM CHLORIDE 10 MEQ CAP PO SCH (09:37)
[2017-04-13] MEDS: ALLOPURINOL 300 MG TAB PO SCH (09:37)
--- NOTE | 2017-04-13 09:43 | HHI.PR ---
Subjective Remarks Low back, hip, leg pain. Patient reporting severe pain in his left hip. He has been evaluated by orthopedic surgery and is going for surgical intervention today. Objective Vitals Vital Signs Date Time Temp Pulse Resp B/P (MAP) Pulse Ox O2 Delivery O2 Flow Rate FiO2 04/13/17 07:21 69 14 132/70 (90) 94 Room Air 04/13/17 06:26 98.4 71 18 146/62 (90) 97 Room Air 04/13/17 03:15 16 04/13/17 00:27 98.1 81 16 131/77 (95) 98 Room Air 04/13/17 00:26 16 04/12/17 21:04 16 04/12/17 18:10 98.1 96 24 129/94 (106) 95 Room Air I/O 04/12/17 04/12/17 04/12/17 04/13/17 04/13/17 04/13/17 07:00 15:00 23:00 07:00 15:00 23:00 Intake Total 500 ml Balance 500 ml Intake IV Total 500 ml Result Diagram: 04/12/17211904/12/172119 Imaging Last Impressions Lumbar Spine MRI 04/12/17 0000 Signed Impressions: Service Date/Time: Wednesday, April 12, 2017 22:26 - CONCLUSION: . 1. Large, complex fluid collection posterior to the spine appears to be centered at L4. Findings are characteristic of abscess or seroma. 2. Postsurgical changes posterior to L4. However, there is still some facet hypertrophy and a diffuse disc bulge which does result in some degree of spinal stenosis at this level. 3. Additional area of spinal stenosis at L1 to do to marginal spurring and facet hypertrophy. Some encroachment on the spinal canal at every lumbar level with no additional areas of significant stenosis. 4. Foramina narrowing which may be severe enough to compromise the left L1 and left L5 nerve roots. 5. Synovial cysts of the articulating facets bilaterally at L4-5 and leftward at L5-S1. The latter does encroach on the spinal canal but does not result in significant stenosis. Corona Stephens MD Hip MRI 04/12/17 0000 Signed Impressions: Service Date/Time: Wednesday, April 12, 2017 22:26 - CONCLUSION: 1. Abnormally increased T2 signal intensity in the adductor muscles and the musculotendinous junction of the hamstring of the left leg. I believe the tendon of the hamstring is avulsed off of the ischium as well. Findings are characteristic of muscular strain and disruption of the hamstring tendon. Is there a history of recent trauma? 2. No abscess identified. Corona Stephens MD Objective Remarks General: No acute distress. Heart: Regular rate and rhythm. No murmur. Lungs: Clear to auscultation bilaterally. No wheezes, rales, or rhonchi. Breathing is nonlabored. Abdomen: Soft, nontender, nondistended. Extremities: 2+ bilateral lower extremity edema. Psych: Alert and oriented. Urinary Catheter: No Vascular Central Line Catheter: No A/P Problem List: (1) Left hip pain ICD Code: M25.552 - Pain in left hip Status: Acute (2) Spinal abscess ICD Code: M46.20 - Osteomyelitis of vertebra, site unspecified (3) HTN (hypertension) ICD Code: I10 - Essential (primary) hypertension Assessment and Plan 1. Spinal abscess: MRI shows large complex fluid collection posterior to the spine at L4, abscess versus seroma. Orthopedic surgery consult appreciated. Going for surgical intervention today. Antibiotics on hold. Patient without leukocytosis or fever. Blood culture and wound culture ordered. 2. Left hip pain: Patient denies recent trauma. MRI of the hip shows characteristics consistent with muscle strain or disruption of the hamstring tendon. Continue pain control. Physical therapy. 3. Hypertension: Stable. Continue home medications. 4. DVT prophylaxis: SCDs. Avoid chemical prophylaxis in anticipation of surgery. Chaz Berry MD Apr 13, 2017 09:43
[2017-04-13] MEDS: MORPHINE SULFATE 4 MG/ML INJ IV PUSH PRN (09:44)
[2017-04-13] MEDS ORDERED: BUPIVACAINE/EPINEPHRINE 0.25% 50 ML VIAL ONE (10:22)
[2017-04-13] MEDS ORDERED: GENTAMICIN SULFATE 80 MG/2 ML VIAL ONE (10:22)
[2017-04-13] MEDS ORDERED: ONDANSETRON HCL 4 MG/2 ML VIAL ONE (10:58)
[2017-04-13] MEDS ORDERED: FAMOTIDINE 20 MG/2 ML VIAL ONE (10:58)
[2017-04-13] MEDS ORDERED: MIDAZOLAM HCL 2 MG/2 ML VIAL ONE (11:06)
[2017-04-13] MEDS ORDERED: MIDAZOLAM HCL 2 MG/2 ML VIAL IV ONE (12:00)
[2017-04-13] MEDS ORDERED: PHENYLEPH/NS 1000 MCG/10 ML SYR IV ONE (12:00)
[2017-04-13] MEDS ORDERED: NEOSTIGMINE 3 MG/3 ML SYR IV ONE (12:00)
[2017-04-13] MEDS ORDERED: ePHEDrine/NS 25 MG/5 ML SYR IV ONE (12:00)
[2017-04-13] MEDS ORDERED: ONDANSETRON HCL 4 MG/2 ML VIAL IV PUSH ONE (12:00)
[2017-04-13] MEDS ORDERED: PROPOFOL 200 MG/20 ML AMP IV ONE (12:00)
[2017-04-13] MEDS ORDERED: SOD PHOSPHATE/SOD BIPHOSPHATE (ADULT) ENEMA 133ML PR PRN (13:30)
[2017-04-13] MEDS ORDERED: BISACODYL 10 MG SUPP RECTAL PRN (13:30)
[2017-04-13] MEDS ORDERED: ONDANSETRON HCL 4 MG/2 ML VIAL IV PRN (13:30)
[2017-04-13] MEDS ORDERED: ACETAMINOPHEN/HYDROcodone 325 MG/7.5 MG TAB PO PRN (13:30)
[2017-04-13] MEDS ORDERED: ALUMINUM/MAGNESIUM/SIMETH 30 ML CUP PO PRN (13:30)
[2017-04-13] MEDS: SODIUM CHLORIDE 0.9% FLUSH 5 ML FLUSH IVF SCH ×2 (13:30→19:58)
[2017-04-13] MEDS ORDERED: Post-op Orders (for Pharmacy) MISC XX ONE (13:30)
[2017-04-13] MEDS ORDERED: SODIUM CHLORIDE 0.9% FLUSH 5 ML FLUSH IVF PRN (13:30)
[2017-04-13] MEDS ORDERED: DO NOT ADM ANY ANTICOAGULANT DRUGS PRN (13:48)
[2017-04-13] MEDS ORDERED: *morphine SULFATE 8 MG/ML PERIprocedure ONLY ONE ×3 (13:51→14:15)
[2017-04-13] MEDS: LACTATED RINGER'S 1000 ML INJ 1,000 ML IV SCH (14:00)
--- NOTE | 2017-04-13 14:30 | RADRPT ---
EXAM DATE/TIME: 04/13/2017 12:55 [facility] COMPARISON: No previous studies available for comparison. INDICATIONS : L4-L5 laminectomy and excision of seroma. MEDICAL HISTORY : Hypertension. SURGICAL HISTORY : Hernia sx, Lumbar back sx. ENCOUNTER: Initial ACUITY: 1 day PAIN SCORE: Non-responsive. LOCATION: lumbar FINDINGS: A single lateral view of the lumbar spine was performed. L5 is localized from a posterior approach. CONCLUSION: L5 is localized from a posterior approach. Stanislaw Novak MD on April 13, 2017 at 14:28 Board Certified Radiologist. This report was verified electronically.
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
[2017-04-13 16:30] VITALS: BP 111/66; PULSE 53; RESP 16; TEMP 96.4; O2SAT 95
[2017-04-13] MEDS: ACETAMINOPHEN/HYDROcodone 325 MG/7.5 MG TAB PO PRN (17:14)
[2017-04-13 20:00] VITALS: BP 100/57; PULSE 76; RESP 17; TEMP 97.5; O2SAT 93
[2017-04-13] MEDS ORDERED: ZOLPIDEM TARTRATE 5 MG TAB PO PRN (21:00)
[2017-04-13 22:37] LABS: BICARBONATE 25.1 MEQ/L (21.0-32.0)
[2017-04-14] VITALS: BP 109/55; PULSE 68; RESP 16; TEMP 97; O2SAT 95
[2017-04-14] MEDS: ACETAMINOPHEN/HYDROcodone 325 MG/7.5 MG TAB PO PRN ×2 (01:25→08:37)
[2017-04-14] MEDS: LACTATED RINGER'S 1000 ML INJ 1,000 ML IV SCH (02:30)
[2017-04-14 04:00] VITALS: BP 126/73; PULSE 72; RESP 16; TEMP 98.1; O2SAT 95
[2017-04-14] MEDS: MORPHINE SULFATE 4 MG/ML INJ IV PUSH PRN (04:57)
--- NOTE | 2017-04-14 06:52 | HHI.FF ---
Face to Face Verification Diagnosis: (1) Lumbar post-laminectomy syndrome Physical Therapy Transfer training, bed to chair Right LE Weight Bearing: WB as tolerated Left LE Weight Bearing: WB as tolerated Additional Instructions No brace needed. Walk for exercise avoid bending and lifting Nursing RN: 3 days/week x 2 weeks Nursing: Dressing changes (clean incision with alcohol and apply dry sterile dressing ) I have seen patient Merrill Do on 04/14/17. My clinical findings support the need for the requested home health care services because: Deconditioned w/ increased weakness I certify that my clinical findings support that this patient is homebound because: Post-op weakness Keiko Self Apr 14, 2017 06:52
--- NOTE | 2017-04-14 06:58 | PD.ORT.PN ---
Subjective Subjective Remarks pt states he is doing better ready to be discharged today significant decreased back pain, leg pain Objective Vitals Vital Signs Date Time Temp Pulse Resp B/P (MAP) Pulse Ox O2 Delivery O2 Flow Rate FiO2 04/14/17 04:00 98.1 72 16 126/73 (90) 95 04/14/17 00:00 97.0 68 16 109/55 (73) 95 04/13/17 20:00 97.5 76 17 100/57 (71) 93 04/13/17 16:30 96.4 53 16 111/66 (81) 95 04/13/17 15:15 97.7 70 15 108/63 (78) 96 Nasal Cannula 2 04/13/17 15:00 56 16 113/63 (80) 97 Nasal Cannula 2 04/13/17 14:45 53 15 102/63 (76) 96 Nasal Cannula 2 04/13/17 14:30 54 14 110/64 (79) 96 Nasal Cannula 2 04/13/17 14:15 53 14 105/63 (77) 92 Nasal Cannula 2 04/13/17 14:00 61 14 114/65 (81) 97 Nasal Cannula 2 04/13/17 13:45 65 16 120/70 (87) 97 Nasal Cannula 4 04/13/17 13:42 97.6 71 16 129/76 (93) 97 Nasal Cannula 4 04/13/17 10:27 04/13/17 07:21 69 14 132/70 (90) 94 Room Air I/O 04/13/17 04/13/17 04/13/17 04/14/17 04/14/17 04/14/17 07:00 15:00 23:00 07:00 15:00 23:00 Intake Total 500 ml 950 ml 900 ml 360 ml Output Total 325 ml Balance 500 ml 625 ml 900 ml 360 ml Intake Oral 720 ml 360 ml IV Total 500 ml 250 ml 180 ml Other 700 ml Output Urine Total 300 ml Estimated Blood Loss 25 ml # Voids 1 3 3 Result Diagram: 04/12/17211904/13/172139 Objective Remarks seen by Dr. Janak Beaulieu lumbar incision healing well, mild serosangious drainage good strength to LE Assessment & Plan Assessment and Plan POD # 1 s/p I&D lumbar wound (post op seroma), s/p L3-S1 laminectomy 2 weeks ago PT-WBAT orthopedically stable discharge home today with home health care patient already has pain meds at home f/u as scheduled Keiko Self Apr 14, 2017 06:58
[2017-04-14 08:00] VITALS: BP 133/71; PULSE 70; RESP 18; TEMP 96.6; O2SAT 96
[2017-04-14 08:06] LABS: AUTOMATED NEUTROPHIL # 4.8 TH/MM3 (1.8-7.7); BASOPHIL # 0.1 TH/MM3 (0-0.2); BASOPHIL % 1.3 % (0.0-2.0); EOSINOPHIL % 0.3 % (0.0-4.0); HEMATOCRIT 31.4 % (39.0-51.0); HEMO FLAGS DIFF FINAL; LYMPH % 16.2 % (9.0-44.0); MEAN CELL VOLUME 102.1 FL (80.0-100.0); MEAN CORPUSCULAR HEMOGLOBIN 33.8 PG (27.0-34.0); MEAN CORPUSCULAR HGB CONC 33.1 % (32.0-36.0); NEUT % 75.2 % (16.0-70.0); PLATELET COUNT 281 TH/MM3 (150-450); RED BLOOD COUNT 3.07 MIL/MM3 (4.50-5.90); RED CELL DISTRIBUTION WIDTH 14.3 % (11.6-17.2); WHITE BLOOD COUNT 6.4 TH/MM3 (4.0-11.0)
[2017-04-14 08:16] LABS: POTASSIUM 4.4 MEQ/L (3.5-5.1)
[2017-04-14] MEDS: GABAPENTIN 300 MG CAP PO SCH (08:36)
[2017-04-14] MEDS: HYDROCHLOROTHIAZIDE 25 MG TAB PO SCH (08:36)
[2017-04-14] MEDS: CARVEDILOL 6.25 MG TAB PO SCH (08:36)
[2017-04-14] MEDS: LISINOPRIL 10 MG TAB PO SCH (08:36)
[2017-04-14] MEDS: ALLOPURINOL 300 MG TAB PO SCH (08:36)
[2017-04-14] MEDS: POTASSIUM CHLORIDE 10 MEQ CAP PO SCH (08:36)
[2017-04-14] MEDS: PANTOPRAZOLE SOD 40 MG DELAYED RELEASE TAB PO SCH (08:36)
[2017-04-14] MEDS: SODIUM CHLORIDE 0.9% FLUSH 5 ML FLUSH IVF SCH (08:40)
--- NOTE | 2017-04-14 08:55 | HHI.PR ---
Subjective Remarks Follow up hypertension, back/hip pain. Patient feels much better today. Has been cleared for discharge by ortho. Wants to go home [facility]. Pain is improved. Objective Vitals Vital Signs Date Time Temp Pulse Resp B/P (MAP) Pulse Ox O2 Delivery O2 Flow Rate FiO2 04/14/17 04:00 98.1 72 16 126/73 (90) 95 04/14/17 00:00 97.0 68 16 109/55 (73) 95 04/13/17 20:00 97.5 76 17 100/57 (71) 93 04/13/17 16:30 96.4 53 16 111/66 (81) 95 04/13/17 15:15 97.7 70 15 108/63 (78) 96 Nasal Cannula 2 04/13/17 15:00 56 16 113/63 (80) 97 Nasal Cannula 2 04/13/17 14:45 53 15 102/63 (76) 96 Nasal Cannula 2 04/13/17 14:30 54 14 110/64 (79) 96 Nasal Cannula 2 04/13/17 14:15 53 14 105/63 (77) 92 Nasal Cannula 2 04/13/17 14:00 61 14 114/65 (81) 97 Nasal Cannula 2 04/13/17 13:45 65 16 120/70 (87) 97 Nasal Cannula 4 04/13/17 13:42 97.6 71 16 129/76 (93) 97 Nasal Cannula 4 04/13/17 10:27 I/O 04/13/17 04/13/17 04/13/17 04/14/17 04/14/17 04/14/17 07:00 15:00 23:00 07:00 15:00 23:00 Intake Total 500 ml 950 ml 900 ml 360 ml Output Total 325 ml Balance 500 ml 625 ml 900 ml 360 ml Intake Oral 720 ml 360 ml IV Total 500 ml 250 ml 180 ml Other 700 ml Output Urine Total 300 ml Estimated Blood Loss 25 ml # Voids 1 3 3 Result Diagram: 04/14/1724 04/14/17723 Imaging Last Impressions Lumbar Spine X-Ray 04/13/17 0000 Signed Impressions: Service Date/Time: March 12:55 - CONCLUSION: L5 is localized from a posterior approach. Stanislaw Novak MD Lumbar Spine MRI 04/12/17 0000 Signed Impressions: Service Date/Time: Wednesday, April 12, 2017 22:26 - CONCLUSION: . 1. Large, complex fluid collection posterior to the spine appears to be centered at L4. Findings are characteristic of abscess or seroma. 2. Postsurgical changes posterior to L4. However, there is still some facet hypertrophy and a diffuse disc bulge which does result in some degree of spinal stenosis at this level. 3. Additional area of spinal stenosis at L1 to do to marginal spurring and facet hypertrophy. Some encroachment on the spinal canal at every lumbar level with no additional areas of significant stenosis. 4. Foramina narrowing which may be severe enough to compromise the left L1 and left L5 nerve roots. 5. Synovial cysts of the articulating facets bilaterally at L4-5 and leftward at L5-S1. The latter does encroach on the spinal canal but does not result in significant stenosis. Corona Stephens MD Hip MRI 04/12/17 0000 Signed Impressions: Service Date/Time: Wednesday, April 12, 2017 22:26 - CONCLUSION: 1. Abnormally increased T2 signal intensity in the adductor muscles and the musculotendinous junction of the hamstring of the left leg. I believe the tendon of the hamstring is avulsed off of the ischium as well. Findings are characteristic of muscular strain and disruption of the hamstring tendon. Is there a history of recent trauma? 2. No abscess identified. Corona Stephens MD Objective Remarks General: No acute distress. Heart: Regular rate and rhythm. No murmur. Lungs: Clear to auscultation bilaterally. No wheezes, rales, or rhonchi. Breathing is nonlabored. Abdomen: Soft, nontender, nondistended. Extremities: 1+ bilateral lower extremity edema. Psych: Alert and oriented. Procedures 04/13/17 incision and drainage lumbar wound (postop seroma) Urinary Catheter: No Vascular Central Line Catheter: No A/P Problem List: (1) Left hip pain ICD Code: M25.552 - Pain in left hip Status: Acute (2) Spinal abscess ICD Code: M46.20 - Osteomyelitis of vertebra, site unspecified (3) HTN (hypertension) ICD Code: I10 - Essential (primary) hypertension Assessment and Plan 1. Spinal abscess: MRI shows large complex fluid collection posterior to the spine at L4, abscess versus seroma. Orthopedic surgery consult appreciated. S/P incision & drainage of post-op seroma. Antibiotics on hold. Patient without leukocytosis or fever. Blood culture and wound culture ordered. 2. Left hip pain: Improved. Patient denies recent trauma. MRI of the hip shows characteristics consistent with muscle strain or disruption of the hamstring tendon. Continue pain control. Physical therapy. Appreciate orthopedic surgery recommendations. 3. Hypertension: Stable. Continue home medications. 4. DVT prophylaxis: SCDs. Avoid chemical prophylaxis in anticipation of surgery. Discharge Planning Cleared for discharge by ortho. Discharge home with home health in stable condition. Follow up with ortho. Heart healthy diet. Activity as tolerated. Chaz Berry MD Apr 14, 2017 08:55
[2017-04-14] MEDS ORDERED: DOCUSATE SODIUM 100 MG CAP PO SCH (21:00)
--- NOTE | 2017-04-15 21:24 | MP ---
cc: MARIAJOSE LOMELI M.D. DATE OF SURGERY April 13, 2017 PREOPERATIVE DIAGNOSIS 1. Lumbar spine seroma. 2. Status post L3-4, L4-5, L5-S1 hemilaminectomy, foraminotomy, partial facetectomy with decompression nerve root; L5-S1 diskectomy. 3. Morbid obesity. POSTOPERATIVE DIAGNOSIS 1. Lumbar spine seroma. 2. Status post L3-4, L4-5, L5-S1 hemilaminectomy, foraminotomy, partial facetectomy with decompression nerve root; L5-S1 diskectomy. 3. Morbid obesity. PROCEDURE Lumbar spine incision and drainage of seroma or fluid collection, irrigation and debridement. SURGEON Danna Lomeli MD. MEDICAL EQUIPMENT REPAIRER Keiko Self PA-C. ANESTHESIA General. ESTIMATED BLOOD LOSS 25 cc. SPECIMEN Debrided tissue was sent to pathology. In addition, two cultures were taken. One was for Gram stain aerobic, anaerobic culture and sensitivities. The other one was a fungal smear and culture. CONDITION Stable. PLAN OF ACTIVITY Per orders. PROCEDURE IN DETAIL My veterinary assistant technician Keiko Self PA-C, was present for the entire surgical case. She was medically necessary for entire case because of the complexity of the case and to facilitate the performance of the procedure. The [employer]OL[employer] DRIER at back table not a skill set for this case to manipulate the instruments. The patient was carefully transferred onto the [facility] spinal frame. The patient is very large, morbidly obese. Great care was made to protect all pressure points. The lumbosacral spine was prepped and draped in the usual sterile manner. The elliptical incision made over the wound. Immediately, under the skin incision, I came upon his fluid collection. It looked to be probable seroma type of fluid collection. The previous 2-0 Tycron suture to repair the fascia and paraspinal musculature was torn. Cultures were taken for Gram stain aerobic, anaerobic, culture sensitivities and for fungal smear and culture. The wound was irrigated with copious amounts of sterile saline, antibiotic solution. Meticulous dissection was made. There was found be no communication at all with the spinal canal or with the dura. In my opinion, the wound itself did not grossly look to be infected. The cultures were taken. The wound was closed in multiple deep layers with a #1 PDS suture and skin was approximated and soft approximated with #1 Prolene and 2-0 nylon. The wound itself was dry. The patient tolerated the procedure well and arrived in recovery room in stable and satisfactory condition. MD FREDDY Nixon/CLARITA /3:33 PM /9:04 PM AMPARO
== END 2017-04-14 10:24 | disposition home health service (06) ==
LOC: NEPD 17:58 → NEDA 04-13 01:41 → N06B 04-13 15:41
PROVIDERS: ADMIT Family Medicine; ATTEND Family Medicine
DX: G97.63 Postprocedural seroma of a nervous system organ or structure following a nervous system procedure (principal); G06.1 Intraspinal abscess and granuloma; M54.5 Low back pain; M79.89 Other specified soft tissue disorders; R20.0 Anesthesia of skin; K44.9 Diaphragmatic hernia without obstruction or gangrene; I10 Essential (primary) hypertension; M10.9 Gout, unspecified; E66.01 Morbid (severe) obesity due to excess calories; Z68.35 Body mass index [BMI] 35.0-35.9, adult; Z87.891 Personal history of nicotine dependence
CPT/HCPCS: 00300; 10140; 72020; 72158; 73723; 76000; 80048; 85025; 87015; 87040; 87070; 87102; 87116; 87205; 87206; 88305; 94150; 96361; 96365; 96366; 96375; 96376; 97163; 99285; A9579; G0378; G8987; G8988; J0690; J1580; J2250; J2270; J2370; J2405; J2710; J3010; J3370; J7040; J7050; J7120; 88304

== ENCOUNTER 2017-06-19 11:06 | Observation (INO) | payer MEDICARE ==
[~2017-06-19] VITALS: Ht 175.3 cm; Wt 100.4 kg
[2017-06-19] MEDS: PANTOPRAZOLE SOD 20 MG DELAYED RELEASE TAB PO SCH (09:00)
[~2017-06-19 11:06] MED LIST changes: -FLUT50SP EACH NARE; +FURO20TA PO; -GABA300C5 PO; +GABA400C5 PO; -HYDR25TA5 PO; +MELO15TA20 PO; -NORC5TAB PO; +POTA10CA PO; +PROT40TA PO; +TRIA37.53 PO
[2017-06-19] MEDS ORDERED: LACTATED RINGER'S 1000 ML IV PRN (11:45)
[2017-06-19] MEDS ORDERED: SODIUM CHLORID 0.9% 500 ML IV PRN (11:45)
[2017-06-19] MEDS ORDERED: POVIDONE IODINE 5% (ANTISEPSIS KIT) 4 APPLICATIONS EACH NARE PRN (11:45)
[2017-06-19] MEDS ORDERED: CHLORHEXIDINE GLUCONATE 4% SOLN 120 ML BTL TOPICAL SCH (11:45)
[2017-06-19] MEDS ORDERED: CHLORHEXIDINE GLUCONATE 2 % 1 PACK (2 CLOTHS) TOPICAL PRN (11:45)
[2017-06-19] MEDS ORDERED: ceFAZolin 1,000 MG/NS 100 ML IV SCH ×2 (11:45)
[2017-06-19] MEDS ORDERED: METOPROLOL TARTRATE 25 MG TAB PO PRN (11:45)
[2017-06-19] MEDS ORDERED: ACETAMINOPHEN 1000 MG/100 ML 100 ML IV ONE (11:55)
[2017-06-19] MEDS ORDERED: ONDANSETRON HCL 4 MG/2 ML VIAL IV PUSH ONE (12:00)
[2017-06-19] MEDS ORDERED: NEOSTIGMINE 3 MG/3 ML SYR IV ONE (12:00)
[2017-06-19] MEDS ORDERED: PHENYLEPH/NS 1000 MCG/10 ML SYR IV ONE (12:00)
[2017-06-19] MEDS ORDERED: LIDOCAINE HCL 1% PF 5 ML SYRINGE OTHER ONE (12:00)
[2017-06-19] MEDS ORDERED: GLYCOPYRROLATE 1 MG/5 ML SYRINGE IV PUSH ONE (12:00)
[2017-06-19] MEDS ORDERED: ePHEDrine/NS 25 MG/5 ML SYR IV ONE (12:00)
[2017-06-19] MEDS ORDERED: DEXAMETHASONE SOD PHOS 4 MG/ML VIAL IV ONE (12:00)
[2017-06-19] MEDS ORDERED: ROCURONIUM INJ 50 MG/5 ML SYRINGE IV PUSH ONE (12:00)
[2017-06-19] MEDS ORDERED: PROPOFOL 200 MG/20 ML AMP IV ONE (12:00)
[2017-06-19] MEDS ORDERED: HYDR-3288 PO (12:06)
[2017-06-19] MEDS ORDERED: GENTAMICIN SULFATE 80 MG/2 ML VIAL ONE (12:48)
[2017-06-19] MEDS ORDERED: BUPIVACAINE/EPINEPHRINE 0.25% 50 ML VIAL ONE (12:56)
[2017-06-19] MEDS ORDERED: ceFAZolin INJ 1,000 MG VIAL ONE (14:34)
[2017-06-19] MEDS ORDERED: HYDROmorphone HCL PF 2 MG/ML VIAL ONE (16:11)
--- NOTE | 2017-06-19 17:24 | HHI.FF ---
Face to Face Verification Diagnosis: (1) Lumbar post-laminectomy syndrome Physical Therapy Gait training, Transfer training, bed to chair Right LE Weight Bearing: WB as tolerated Left LE Weight Bearing: WB as tolerated Nursing RN: 3 days/week x 2 weeks Nursing: Dressing changes (clean incision with alcohol and apply dry sterile dressing daily ) Additional Instructions PT lumbar spine, WBAT, no bending, lifting, stooping I have seen patient Merrill Do on 06/19/17. My clinical findings support the need for the requested home health care services because: Deconditioned w/ increased weakness I certify that my clinical findings support that this patient is homebound because: Post-op weakness Unsteady gait/balance Janak Beaulieu MD Jun 19, 2017 17:24
[2017-06-19] MEDS ORDERED: ONDANSETRON HCL 4 MG/2 ML VIAL IV PUSH PRN (17:30)
[2017-06-19] MEDS ORDERED: BISACODYL 10 MG SUPP RECTAL PRN (17:30)
[2017-06-19] MEDS ORDERED: SODIUM CHLORIDE 0.9% FLUSH 5 ML FLUSH IVF PRN (17:30)
[2017-06-19] MEDS ORDERED: SOD PHOSPHATE/SOD BIPHOSPHATE (ADULT) ENEMA 133ML PR PRN (17:30)
[2017-06-19] MEDS ORDERED: MORPHINE SULFATE 4 MG/ML INJ IV PUSH PRN (17:30)
[2017-06-19] MEDS ORDERED: Post-op Orders (for Pharmacy) MISC XX ONE (17:30)
[2017-06-19] MEDS ORDERED: ALUMINUM/MAGNESIUM/SIMETH 30 ML CUP PO PRN (17:30)
[2017-06-19] MEDS ORDERED: ACETAMINOPHEN/HYDROcodone 325 MG/7.5 MG TAB PO PRN (17:30)
--- NOTE | 2017-06-19 17:31 | HHI.PR ---
Immediate Post Op Note Procedure Date: Jun 19, 2017 Pre Op Diagnosis: (1) Lumbar spinal stenosis Post Op Diagnosis: (1) Lumbar spinal stenosis Surgeon: Janak Beaulieu M.D. Line Operator(s): Keiko Self PA-C Procedure: L3-4, L4-5 bilateral decompressive ketan-laminectomy, foraminotomy with re- exploration Complications: none Estimated blood loss: 400 cc Anesthesia: General Drains: None IVF Patient to: PACU Patient Condition: Good Implant/Devices: SEE IMPLANT LOG (if applicable) Date/Time of Procedure: SEE SURGICAL CARE RECORD Janak Beaulieu MD Jun 19, 2017 17:31
[2017-06-19] MEDS ORDERED: *ONDANSETRON 4 MG VIAL PERIprocedural Use ONLY ONE (17:32)
[2017-06-19 17:46] LABS: REVIEW FLAG FINAL
[2017-06-19] MEDS ORDERED: *MEPERIDINE 25 MG INJ VIAL PERIprocedural Use ONLY ONE (17:47)
--- NOTE | 2017-06-19 17:48 | RADRPT ---
EXAM DATE/TIME: 06/19/2017 16:44 [facility] COMPARISON: SPINE LUMBAR LATERAL ONLY, April 13, 2017, 12:55. INDICATIONS : Lower back pain. MEDICAL HISTORY : Hypertension. SURGICAL HISTORY : L4-L5 laminectomy and excision of seroma. ENCOUNTER: Initial ACUITY: 1 day PAIN SCORE: Non-responsive. LOCATION: Bilateral L3-L5. FINDINGS: 2 lateral spot fluoroscopic images obtained in the operating room during a procedure demonstrates ins truments overlying the posterior elements at the L4 and L5 levels. CONCLUSION: Instruments document the L4-L5 level. Black Prince MD on June 19, 2017 at 17:44 Board Certified Radiologist. This report was verified electronically.
[2017-06-19] MEDS ORDERED: *morphine SULFATE 8 MG/ML PERIprocedure ONLY ONE (18:14)
[2017-06-19] MEDS ORDERED: DO NOT ADM ANY ANTICOAGULANT DRUGS PRN (18:15)
[2017-06-19 18:30] VITALS: BP 120/66; PULSE 62; RESP 18; TEMP 95.7; O2SAT 100
[2017-06-19] MEDS: FUROSEMIDE 20 MG TAB PO SCH (20:30)
[2017-06-19] MEDS: CARVEDILOL 6.25 MG TAB PO SCH (20:30)
[2017-06-19] MEDS: GABAPENTIN 400 MG CAP PO SCH (20:30)
[2017-06-19] MEDS: ACETAMINOPHEN/HYDROcodone 325 MG/7.5 MG TAB PO PRN (20:31)
--- NOTE | 2017-06-19 20:34 | PD.CONS ---
HPI Service [facility] Consult Requested By Janak Beaulieu M.D. Reason for Consult Medical management Primary Care Physician Jina Turner M.D. Diagnoses: (1) S/P lumbar laminectomy (2) HTN (hypertension) (3) History of gout (4) Lumbar spinal stenosis History of Present Illness Mr. Do is 72 yo, with with history of spinal stenosis. He underwent surgery in the summer to address this issue. Pt reported he had little improvement. He was seen for spinal abscess vs seroma in March of 2017. Over the course of the past several weeks, Mr. Do reported worsening pain and difficultly walking, requiring the use of a walker. He described the pain as as excruciating. He reported having been tapered on his [place] pain medication and the pain worsened. He said he hoped the surgery would help. At time of interview, he reported having burning pain "and that's new." he said the pain was down his back, into his legs and had some lower chest/ abdomen involvement. He denied cough, shortness of breath, sore throat, bowel or bladder difficulties (at time of interview he was asking for assistance to go to the bathroom in order to have a bowel movement), chest/abdominal pain ( except as noted above). He reported he did not take his gabapentin this am due to "thinking I was told not to take it." Mr. Do underwent L3-4, L4-5 laminectomy, foraminotomy, and re-exploration on 06/19/17. The hospitalist team was consulted to medically manage Mr. Do health issues. Review of Systems Constitutional: COMPLAINS OF: Change in appetite (Over the course of the past week secondary to pain.), DENIES: Fatigue Endocrine: DENIES: Heat/cold intolerance, Polyphagia Eyes: DENIES: Blurred vision, Vision loss Ears, nose, mouth, throat: DENIES: Tinnitus, Hearing loss, Throat pain Respiratory: DENIES: Cough, Shortness of breath Cardiovascular: DENIES: Chest pain, Dyspnea on Exertion Gastrointestinal: COMPLAINS OF: Constipation (Infrequent by history, none at present.), DENIES: Black stools, Bloody stools, Vomiting, Difficulty Swallowing Genitourinary: DENIES: Urinary frequency, Urinary incontinence, Hematuria, Dysuria Musculoskeletal: COMPLAINS OF: Muscle aches, Back pain Integumentary: DENIES: Pruritus, Rash Hematologic/lymphatic: DENIES: Bruising, Lymphadenopathy Neurologic: COMPLAINS OF: Abnormal gait (Ambulation difficulty reported to neural pain.), Localized weakness (Secondary to his back condition.) Psychiatric: COMPLAINS OF: Anxiety (related to his pain and why it was not being controlled with medication.), DENIES: Confusion, Mood changes Past Family Social History Allergies: Coded Allergies: No Known Allergies (Verified Allergy, Unknown, 06/19/17) Uncoded Allergies: NKA (Allergy, Unknown, 04/08/03) Past Medical History Hypertension Gout (last attack was reported to be "a long time ago"). Back pain secondary to spinal stenosis. Past Surgical History Laminectomy (summer 2016). Reported Medications Reported Meds & Active Scripts Active Reported [place] (Hydrocodone-Acetaminophen) 7.5-325 mg Tab 1 Tab PO Q6H PRN Triamterene-Hydrochlorothiazide 37.5-25 Mg Cap 1 Cap PO DAILY Gabapentin 400 Mg Cap 400 Cap PO TID Meloxicam 15 Mg Tab 15 Mg PO DAILY Furosemide 20 Mg Tab 20 Mg PO BID Potassium Chloride ER (Potassium Chloride) 10 Meq Cap 10 Meq PO DAILY Protonix (Pantoprazole Sodium) 40 Mg Tab 20 Mg PO DAILY Multi-Vitamin Daily (Multiple Vitamin) 1 Tab Tab 1 Tab PO DAILY Lisinopril 10 Mg Tab 10 Mg PO DAILY Carvedilol 6.25 Mg Tab 6.25 Mg PO BID Allopurinol 300 Mg Tab 300 Mg PO DAILY Active Ordered Medications Current Medications Medications (Trade) Dose Ordered Sig/Samia Route Start Time Stop Time Status Last Admin (Lopressor) 25 mg MACHINING ENGINEER PRN PO 06/19/17 11:45 06/22/17 11:44 (Zyloprim) 300 mg DAILY PO 06/20/17 09:00 (Coreg) 6.25 mg BID PO 06/19/17 21:00 06/19/17 20:30 (Lasix) 20 mg BID@0900,1800 PO 06/19/17 18:00 06/19/17 20:30 (Neurontin) 400 mg TID PO 06/19/17 18:00 06/19/17 20:30 (Prinivil) 10 mg DAILY PO 06/20/17 09:00 (Protonix) 20 mg DAILY PO 06/19/17 09:00 (Dyazide 37.5-25 Mg) 1 cap DAILY PO 06/20/17 09:00 (NS Flush) 2 ml UNSCH PRN IVF 06/19/17 17:30 (NS Flush) 2 ml BID IVF 06/19/17 21:00 Cefazolin Sodium 1000 mg/Sodium Chloride 100 ml @ 200 mls/hr Q8H IV 06/19/17 23:00 06/20/17 15:29 (Morphine Inj) 3 mg Q3H PRN IV PUSH 06/19/17 17:30 ([place] 7.5-325 Mg) 1 tab Q4H PRN PO 06/19/17 17:30 ([place] 7.5-325 Mg) 2 tab Q6H PRN PO 06/19/17 17:30 06/19/17 20:31 (Theragran M Tab) 1 tab BID PO 06/20/17 09:00 08/19/17 08:59 (Zofran Inj) 4 mg Q6H PRN IV PUSH 06/19/17 17:30 (Colace) 100 mg BID PO 06/20/17 21:00 (Mag-Al Plus Susp Liq) 30 ml Q6H PRN PO 06/19/17 17:30 (Ambien) 5 mg HS PRN PO 06/19/17 21:00 (Dulcolax Supp) 10 mg DAILY PRN RECTAL 06/19/17 17:30 (Fleets Enema (Adult)) 133 ml DAILY PRN [place] 06/19/17 17:30 Miscellaneous Information ALL NURSING DEPARTME... UNSCH PRN .XX 06/19/17 18:15 06/20/17 18:14 Family History Pt denied significant family history. He denied family history cancer, diabetes, and cardiac issues. He did report his father was an alcoholic who committed suicide at an unknown age. Social History Pt is . He reproted smoking cigarettes "30-40 years ago and haven't smoked since then." Pt reported drinking "2-3 beers" per week at a weekly [employer] game. he stated he does not drink "heavy alcohol because of my father." Pt denied illicit/recreational drugs. Physical Exam Vital Signs Vital Signs Date Time Temp Pulse Resp B/P (MAP) Pulse Ox O2 Delivery O2 Flow Rate FiO2 06/19/17 18:30 95.7 62 18 120/66 (84) 100 06/19/17 18:15 97.5 06/19/17 18:15 97.5 58 16 118/67 (84) 98 Nasal Cannula 3 06/19/17 18:00 57 17 118/69 (85) 100 Nasal Cannula 3 06/19/17 18:00 97.5 06/19/17 17:45 58 18 129/73 (91) 100 Nasal Cannula 3 06/19/17 17:32 96.4 06/19/17 17:30 96.4 78 20 115/62 (79) 93 Nasal Cannula 3 Physical Exam GENERAL: This is a well-nourished, well-developed patient, in no apparent distress. SKIN: No rashes or lesions. Ecchymoses noted on right forearm. IV access site noted. Cool and dry. HEAD: Atraumatic. Normocephalic. EYES: Pupils equal round and reactive. Extraocular motions intact. No scleral icterus. No injection or drainage. ENT: Nose without bleeding or purulent drainage. Airway patent. NECK: Trachea midline. No lymphadenopathy. Supple and nontender. CARDIOVASCULAR: Regular rate and rhythm without murmurs, gallops, or rubs. RESPIRATORY: Clear to auscultation. Breath sounds equal bilaterally. No wheezes , rales, or rhonchi. GASTROINTESTINAL: Abdomen soft, non-tender, nondistended. No hepato- splenomegaly or guarding. MUSCULOSKELETAL: Extremities without clubbing, cyanosis, or edema. NEUROLOGICAL: Awake and alert. Cranial nerves II through XII intact. Motor and sensory grossly within normal limits. Five out of 4/5 muscle strength in upper extremities' lower extremities not evaluated at pt's request. sense of touch for lower extremities was intact and pt wiggled toes of both feet on command. Speech was clear and fluent. Laboratory Laboratory Tests Test 06/19/17 17:20 Hemoglobin 8.9 Hematocrit 27.0 Result Diagram: 06/19/17 1720 Imaging Last Impressions Lumbar Spine X-Ray 06/19/17 0000 Signed Impressions: Service Date/Time: Monday, June 19, 2017 16:44 - CONCLUSION: Instruments document the L4-L5 level. Black Prince MD Assessment and Plan Assessment and Plan Mr. Do is 72 yo, with with history of spinal stenosis. He underwent surgery in the Summer of 2016 to address this issue. Pt reported he had little improvement. He was seen for spinal abscess vs seroma in March of 2017. Over the course of the past several weeks, Mr. Do reported worsening pain and difficultly walking, requiring the use of a walker. He described the pain as as excruciating. He reported having been tapered on his [place] pain medication and the pain worsened. He said he hoped the surgery would help. At time of interview, he reported having burning pain "and that's new." he said the pain was down his back, into his legs and had some lower chest/ abdomen involvement. He denied cough, shortness of breath, sore throat, bowel or bladder difficulties (at time of interview he was asking for assistance to go to the bathroom in order to have a bowel movement), chest/abdominal pain ( except as noted above). He reported he did not take his gabapentin this am due to "thinking I was told not to take it." Mr. Do underwent L3-4, L4-5 laminectomy, foraminotomy, and re-exploration on 06/19/17. The hospitalist team was consulted to medically manage Mr. Do health issues. SP/L3-4. L4-5 laminectomy, foraminotomy and re-exploration. -Pain management per Dr. Beaulieu -Rehab per Orthopedics Hypertension -Continue Coreg 6.25 mg PO BID -Continue Lisinopril 10 mg po daily -Continue Dyazide 27.5/25 mg po daily Gout -Allupurinol 300 mg daily -Check am labs DVT prophylaxis -SCD's -Pharmacological AC to be initiated by Orthopedics. Diet -Per Ortho. Discussed Condition With Pt and RN Problem Qualifiers (1) HTN (hypertension): Qualified Codes: I10 - Essential (primary) hypertension (2) Lumbar spinal stenosis: Qualified Codes: M48.061 - Spinal stenosis, lumbar region without neurogenic claudication Dereck Khanna Jr. Jun 19, 2017 20:34
[2017-06-19 20:35] VITALS: BP 124/71; PULSE 87; RESP 18; TEMP 96.8; O2SAT 97
[2017-06-19] MEDS ORDERED: ZOLPIDEM TARTRATE 5 MG TAB PO PRN (21:00)
[2017-06-19] MEDS: SODIUM CHLORIDE 0.9% FLUSH 5 ML FLUSH IVF SCH (22:07)
[2017-06-19 22:23] LABS: AUTOMATED NEUTROPHIL # 3.6 TH/MM3 (1.8-7.7); BASOPHIL % 0.5 % (0.0-2.0); EOSINOPHIL % 0.4 % (0.0-4.0); HEMATOCRIT 27.4 % (39.0-51.0); HEMO FLAGS DIFF FINAL; LYMPH % 23.5 % (9.0-44.0); LYMPHOCYTE # 1.2 TH/MM3 (1.0-4.8); MEAN CELL VOLUME 97.3 FL (80.0-100.0); MEAN CORPUSCULAR HEMOGLOBIN 31.3 PG (27.0-34.0); MEAN CORPUSCULAR HGB CONC 32.2 % (32.0-36.0); MONO % 5.6 % (0.0-8.0); PLATELET COUNT 243 TH/MM3 (150-450); RED BLOOD COUNT 2.82 MIL/MM3 (4.50-5.90); RED CELL DISTRIBUTION WIDTH 17.5 % (11.6-17.2); WHITE BLOOD COUNT 5.1 TH/MM3 (4.0-11.0)
[2017-06-20 00:40] VITALS: BP 92/59; PULSE 102; RESP 18; TEMP 98.1; O2SAT 94
[2017-06-20] MEDS: ACETAMINOPHEN/HYDROcodone 325 MG/7.5 MG TAB PO PRN ×2 (02:38→09:49)
[2017-06-20 04:35] VITALS: BP 120/75; PULSE 91; RESP 18; TEMP 97.4; O2SAT 98
[2017-06-20 05:09] LABS: AUTOMATED NEUTROPHIL # 5.6 TH/MM3 (1.8-7.7); BASOPHIL % 0.1 % (0.0-2.0); EOSINOPHIL % 0.1 % (0.0-4.0); HEMATOCRIT 26.4 % (39.0-51.0); HEMO FLAGS DIFF FINAL; LYMPH % 9.2 % (9.0-44.0); LYMPHOCYTE # 0.6 TH/MM3 (1.0-4.8); MEAN CELL VOLUME 96.1 FL (80.0-100.0); MEAN CORPUSCULAR HEMOGLOBIN 31.9 PG (27.0-34.0); MEAN CORPUSCULAR HGB CONC 33.2 % (32.0-36.0); MONO % 3.5 % (0.0-8.0); NEUT % 87.1 % (16.0-70.0); PLATELET COUNT 233 TH/MM3 (150-450); RED BLOOD COUNT 2.75 MIL/MM3 (4.50-5.90); RED CELL DISTRIBUTION WIDTH 17.8 % (11.6-17.2); WHITE BLOOD COUNT 6.4 TH/MM3 (4.0-11.0)
[2017-06-20 05:29] LABS: ALT (GPT) 14 U/L (12-78); ANION GAP 10 MEQ/L (5-15); AST (GOT) 15 U/L (15-37); BICARBONATE 22.4 MEQ/L (21.0-32.0); BLOOD UREA NITROGEN 20 MG/DL (7-18); CHLORIDE 103 MEQ/L (98-107); GLOMERULAR FILTRATION RATE 87 ML/MIN (>89); MAGNESIUM 1.5 MG/DL (1.5-2.5); POTASSIUM 4.6 MEQ/L (3.5-5.1); SODIUM (NA) 135 MEQ/L (136-145)
[2017-06-20 05:37] LABS: ALKALINE PHOSPHATASE 83 U/L (45-117); TOTAL BILIRUBIN ADULT 0.4 MG/DL (0.2-1.0)
--- NOTE | 2017-06-20 06:57 | PD.ORT.PN ---
Subjective Subjective Remarks POD#1 L3-4,L4-5 sarkar with re-exploration Patient wants to go home today Pre-op LBP and LE pain,weakness gone Objective Vitals Vital Signs Date Time Temp Pulse Resp B/P (MAP) Pulse Ox O2 Delivery O2 Flow Rate FiO2 06/20/17 04:35 97.4 91 18 120/75 (90) 98 06/20/17 00:40 98.1 102 18 92/59 (70) 94 06/19/17 20:35 96.8 87 18 124/71 (88) 97 06/19/17 18:30 95.7 62 18 120/66 (84) 100 06/19/17 18:15 97.5 06/19/17 18:15 97.5 58 16 118/67 (84) 98 Nasal Cannula 3 06/19/17 18:00 57 17 118/69 (85) 100 Nasal Cannula 3 06/19/17 18:00 97.5 06/19/17 17:45 58 18 129/73 (91) 100 Nasal Cannula 3 06/19/17 17:32 96.4 06/19/17 17:30 96.4 78 20 115/62 (79) 93 Nasal Cannula 3 I/O 06/19/17 06/19/17 06/19/17 06/20/17 06/20/17 06/20/17 07:00 15:00 23:00 07:00 15:00 23:00 Intake Total 340 ml Balance 340 ml Intake Oral 240 ml IV Total 100 ml # Voids 1 # Bowel Movements 1 Result Diagram: 06/20/17 0424 06/20/17423 Objective Remarks Dressings changed Motor +5/5= Dave LE Patient able to transfer independently Assessment & Plan Assessment and Plan Ortho stable Discharge home [facility] Janak Beaulieu MD Jun 20, 2017 06:57
--- NOTE | 2017-06-20 07:22 | MP ---
cc: TIM HILTON M.D., ALBERT W. M.D. DATE OF SURGERY 06/19/2017 PREOPERATIVE DIAGNOSIS 1. L4-5 severe spinal stenosis. 2. L3-4 moderately severe spinal stenosis. 3. Status post L3-4, L4-5 laminectomy syndrome. 4. Lumbar spine degenerative disk disease osteoarthritis. 5. Bilateral lumbar radiculitis bilateral, right greater left lumbar radiculitis with lower extremity weakness. 6. Morbid obesity POSTOPERATIVE DIAGNOSIS 1. L4-5 severe spinal stenosis. 2. L3-4 moderately severe spinal stenosis. 3. Status post L3-4, L4-5 laminectomy syndrome. 4. Lumbar spine degenerative disk disease osteoarthritis. 5. Bilateral lumbar radiculitis bilateral, right greater left lumbar radiculitis with lower extremity weakness. 6. Morbid obesity PROCEDURE L3-4, L4-5 bilateral decompressive hemilaminectomy, foraminotomy, partial facetectomy, with decompression of nerve root with reexploration. SURGEON Danna Beaulieu MD DIALYSIS REGISTERED NURSE Keiko Self PA-C SPECIMEN None ESTIMATED BLOOD LOSS 400 cc COMPLICATIONS None ANESTHESIA General DRAINS None CONDITION Stable PLAN OF ACTIVITY Per orders. PROCEDURE My occupational therapy assistant Keiko Self PA-C was present for the entire surgical case. She was medically necessary for entire case because of the complexity of the case and to facilitate the performance of the procedure. The LEAD GENERATION REPRESENTATIVE at the back table was not a skill set for this case to manipulate the instruments e.g. multiple different types of soft tissue retractors and nerve retractors. The patient was brought into the operating room and had satisfactory general endotracheal anesthesia by the Department of Anesthesia. The patient was carefully transferred onto the [facility] spinal frame. All pressure points were well-padded. Because of the patient's morbid obesity, great care was made to protect all pressure points. The lumbosacral spine was prepped and draped in the usual sterile manner. The localizing x-ray was used at L4-5 and also L3-4. 18 cc of 0.25% Marcaine was used to infiltrate the operative site. Previous scar tissue was surgically excised. Dissection carried into the subcutaneous tissue. Dissection carried down to the L4-5 interspace. The patient had extensive scar tissue formation. This was gently removed from the posterior elements. A localizing x-ray was used to confirm the L4-5 interspace. The patient was found to have severe spinal stenosis and foraminal stenosis. A bilateral decompressive hemilaminectomy was performed a partial facetectomy and foraminotomies were also performed. This was used with 2 mm, 3 mm and 4 mm Kerrison's with a 5 mm bur. Preoperative MRI scan also confirmed the patient did have spinal stenosis at L3-4. I decided to proceed ahead with the adjacent segment at L3-4. A bilateral decompressive hemilaminectomy was performed with bilateral foraminotomies and partial facetectomies. The patient was found to have moderately severe spinal stenosis at this segment with extensive amount of scar tissue. A very satisfactory decompression was performed both levels at L4-5 and L3-4. Surgiflo was used in addition to Duragen to help provide postoperative hemostasis and help to prevent postoperative adhesions in the dura. The wound was irrigated with copious amounts of sterile saline antibiotic solution. The wound itself was dry. The wound was closed in multiple layers with the fascia being closed with #2 Tycron suture and #1 Vicryl suture. The subcutaneous closed in layers with 2-0 Vicryl and 3-0 Vicryl. Skin was approximated with interrupted 2-0 nylon. Sterile dressings were applied. The patient tolerated the procedure well and arrived in the Recovery Room in stable and satisfactory condition. MD FREDDY Nixon/HELLEN /5:29 PM /7:12 AM
[2017-06-20] MEDS: SODIUM CHLORIDE 0.9% FLUSH 5 ML FLUSH IVF SCH (07:55)
[2017-06-20] MEDS: GABAPENTIN 400 MG CAP PO SCH (07:56)
[2017-06-20] MEDS: PANTOPRAZOLE SOD 20 MG DELAYED RELEASE TAB PO SCH (07:57)
[2017-06-20] MEDS: FUROSEMIDE 20 MG TAB PO SCH (07:57)
[2017-06-20] MEDS: CARVEDILOL 6.25 MG TAB PO SCH (07:59)
[2017-06-20 08:00] VITALS: BP 122/75; PULSE 87; RESP 18; TEMP 96.9; O2SAT 98
--- NOTE | 2017-06-20 08:05 | HHI.PR ---
Objective Vitals Vital Signs Date Time Temp Pulse Resp B/P (MAP) Pulse Ox O2 Delivery O2 Flow Rate FiO2 06/20/17 07:02 Room Air 06/20/17 04:35 97.4 91 18 120/75 (90) 98 06/20/17 00:40 98.1 102 18 92/59 (70) 94 06/19/17 20:35 96.8 87 18 124/71 (88) 97 06/19/17 18:30 95.7 62 18 120/66 (84) 100 06/19/17 18:15 97.5 06/19/17 18:15 97.5 58 16 118/67 (84) 98 Nasal Cannula 3 06/19/17 18:00 57 17 118/69 (85) 100 Nasal Cannula 3 06/19/17 18:00 97.5 06/19/17 17:45 58 18 129/73 (91) 100 Nasal Cannula 3 06/19/17 17:32 96.4 06/19/17 17:30 96.4 78 20 115/62 (79) 93 Nasal Cannula 3 I/O 06/19/17 06/19/17 06/19/17 06/20/17 06/20/17 06/20/17 07:00 15:00 23:00 07:00 15:00 23:00 Intake Total 340 ml 360 ml 100 ml Balance 340 ml 360 ml 100 ml Intake Oral 240 ml 360 ml IV Total 100 ml 100 ml # Voids 1 4 # Bowel Movements 1 1 Result Diagram: 06/20/17 0424 06/20/17 0424 Objective Remarks A/P Problem List: (1) S/P lumbar laminectomy ICD Code: Z98.890 - Other specified postprocedural states (2) HTN (hypertension) ICD Code: I10 - Essential (primary) hypertension (3) History of gout ICD Code: Z87.39 - Personal history of other diseases of the musculoskeletal system and connective tissue (4) Lumbar spinal stenosis ICD Code: M48.061 - Spinal stenosis, lumbar region without neurogenic claudication Problem Qualifiers (1) HTN (hypertension): Qualified Codes: I10 - Essential (primary) hypertension (2) Lumbar spinal stenosis: Qualified Codes: M48.061 - Spinal stenosis, lumbar region without neurogenic claudication Aracely Silva MD Jun 20, 2017 08:04
[2017-06-20] MEDS ORDERED: ALLOPURINOL 300 MG TAB PO SCH (09:00)
[2017-06-20] MEDS ORDERED: NON-FORMULARY DRUG (Multiple Vitamin (Multi-Vitamin Daily) 1 TAB) PO SCH (09:00)
[2017-06-20] MEDS ORDERED: MULTIVITAMINS/MINERALS THERAPEUTIC TAB PO SCH (09:00)
[2017-06-20] MEDS ORDERED: TRIAMTERENE/HCTZ 37.5 MG/25 MG CAP PO SCH (09:00)
[2017-06-20] MEDS ORDERED: LISINOPRIL 10 MG TAB PO SCH (09:00)
[2017-06-20 09:13] VITALS: O2SAT 97
[2017-06-20 12:06] LABS: HEMOGLOBIN A1a 1.2 %; HEMOGLOBIN A1b 1.8 %; HEMOGLOBIN Ao 82.9 %; HEMOGLOBIN LA1C 3.4 %
[2017-06-20] MEDS ORDERED: DOCUSATE SODIUM 100 MG CAP PO SCH (21:00)
== END 2017-06-20 10:39 | disposition home or self-care (01) ==
LOC: HSDC 11:06 → HSDI 17:20 → N06A 18:28
PROVIDERS: ADMIT Orthopaedic Surgery Orthopaedic Surgery of the Spine; ATTEND Orthopaedic Surgery Orthopaedic Surgery of the Spine
DX: M48.061 Spinal stenosis, lumbar region without neurogenic claudication (principal); M51.16 Intervertebral disc disorders with radiculopathy, lumbar region; I10 Essential (primary) hypertension; M10.9 Gout, unspecified; M16.0 Bilateral primary osteoarthritis of hip; E66.01 Morbid (severe) obesity due to excess calories; Z79.899 Other long term (current) drug therapy; Z87.891 Personal history of nicotine dependence
CPT/HCPCS: 00630; 63047; 63048; 72020; 76000; 80053; 83036; 83735; 84100; 84439; 84443; 85014; 85018; 85025; 94150; G0378; J0131; J0690; J1100; J1170; J1580; J2175; J2270; J2370; J2405; J2710; J3010

== ENCOUNTER → 2017-08-15 | Outpatient (CLI) | payer MEDICARE ==
[2017-08-15 14:52] LABS: AUTOMATED NEUTROPHIL # 5.7 TH/MM3 (1.8-7.7); BASOPHIL # 0.1 TH/MM3 (0-0.2); BASOPHIL % 0.7 % (0.0-2.0); EOSINOPHIL % 0.5 % (0.0-4.0); HEMATOCRIT 28.2 % (39.0-51.0); HEMO FLAGS DIFF FINAL; HEMOGLOBIN 9.2 GM/DL (13.0-17.0); LYMPH % 20.1 % (9.0-44.0); LYMPHOCYTE # 1.6 TH/MM3 (1.0-4.8); MEAN CELL VOLUME 89.8 FL (80.0-100.0); MEAN CORPUSCULAR HEMOGLOBIN 29.3 PG (27.0-34.0); MEAN CORPUSCULAR HGB CONC 32.7 % (32.0-36.0); MONO % 6.7 % (0.0-8.0); MONOCYTE # 0.5 TH/MM3 (0-0.9); PLATELET COUNT 464 TH/MM3 (150-450); RED BLOOD COUNT 3.14 MIL/MM3 (4.50-5.90); RED CELL DISTRIBUTION WIDTH 18.4 % (11.6-17.2); WHITE BLOOD COUNT 7.9 TH/MM3 (4.0-11.0)
[2017-08-15 15:07] LABS: APTT (PATIENT) 30.9 SEC (24.3-30.1); INTERNATIONAL NORMALIZED RATIO 1.2 RATIO
[2017-08-15 15:15] LABS: ANION GAP 11 MEQ/L (5-15); BICARBONATE 19.5 MEQ/L (21.0-32.0); BLOOD UREA NITROGEN 10 MG/DL (7-18); CALCIUM 8.8 MG/DL (8.5-10.1); CHLORIDE 109 MEQ/L (98-107); CREATININE 0.63 MG/DL (0.60-1.30); GLOMERULAR FILTRATION RATE 126 ML/MIN (>89); GLUCOSE,FASTING 103 MG/DL (74-99); POTASSIUM 3.5 MEQ/L (3.5-5.1); SODIUM (NA) 139 MEQ/L (136-145)
== END ==
LOC: CPRE 14:18
DX: Z01.810 Encounter for preprocedural cardiovascular examination (principal); Z01.812 Encounter for preprocedural laboratory examination; M43.10 Spondylolisthesis, site unspecified; R94.31 Abnormal electrocardiogram [ECG] [EKG]
CPT/HCPCS: 36415; 80048; 85025; 85610; 85730; 93005

== ENCOUNTER 2017-08-22 05:44 | Inpatient (IN) | payer MEDICARE ==
[~2017-08-22] VITALS: Ht 175.3 cm; Wt 101.6 kg
[~2017-08-22 05:44] MED LIST changes: +CYCL5TAB PO; +HYDR-3583 PO
[2017-08-22] MEDS ORDERED: CHLORHEXIDINE GLUCONATE 2 % 1 PACK (2 CLOTHS) TOPICAL PRN (06:30)
[2017-08-22] MEDS ORDERED: POVIDONE IODINE 5% (ANTISEPSIS KIT) 4 APPLICATIONS EACH NARE PRN (06:30)
[2017-08-22] MEDS ORDERED: METOPROLOL TARTRATE 25 MG TAB PO PRN (06:30)
[2017-08-22] MEDS ORDERED: SODIUM CHLORID 0.9% 500 ML IV PRN (06:30)
[2017-08-22] MEDS ORDERED: VANCOMYCIN 1000 MG/NS 250 ML (for <70 kg) IV SCH ×2 (06:30)
[2017-08-22] MEDS ORDERED: LACTATED RINGER'S 1000 ML IV PRN (06:30)
[2017-08-22] MEDS ORDERED: CHLORHEXIDINE GLUCONATE 4% SOLN 120 ML BTL TOPICAL SCH (06:30)
[2017-08-22] MEDS ORDERED: GENTAMICIN SULFATE 80 MG/2 ML VIAL ONE ×2 (07:01→13:23)
[2017-08-22] MEDS ORDERED: TRANEXAMIC ACID IV SCH (08:00)
[2017-08-22] MEDS ORDERED: SODIUM CHLORIDE 0.9% IV SCH (08:00)
[2017-08-22] MEDS ORDERED: DEXMEDETOMIDINE HCL 200 MCG/2 ML VIAL ONE ×2 (08:08→15:11)
[2017-08-22] MEDS: ceFAZolin 2 GM PREMIX 50 ML IV SCH ×3 (08:15→12:15)
[2017-08-22] MEDS ORDERED: VANCOMYCIN HCL 1000 MG VIAL ONE (08:43)
[2017-08-22] MEDS ORDERED: DEXAMETHASONE SOD PHOS 4 MG/ML VIAL IV ONE (12:00)
[2017-08-22] MEDS ORDERED: SODIUM CHLORID 0.9% 500 ML INJ 500 ML IV ONE (12:00)
[2017-08-22] MEDS ORDERED: LACTATED RINGER'S 1000 ML INJ 1,000 ML IV ONE (12:00)
[2017-08-22] MEDS ORDERED: SODIUM CHLOR 0.9% 250 ML INJ 750 ML IV ONE (12:00)
[2017-08-22] MEDS ORDERED: ceFAZolin INJ 1,000 MG VIAL IV ONE (12:00)
[2017-08-22] MEDS ORDERED: ROCURONIUM INJ 50 MG/5 ML SYRINGE IV PUSH ONE (12:00)
[2017-08-22] MEDS ORDERED: PROPOFOL 200 MG/20 ML AMP IV ONE (12:00)
[2017-08-22] MEDS ORDERED: PHENYLEPH/NS 1000 MCG/10 ML SYR IV ONE (12:00)
[2017-08-22] MEDS ORDERED: ONDANSETRON HCL 4 MG/2 ML VIAL IV ONE (12:00)
[2017-08-22] MEDS ORDERED: LIDOCAINE HCL 1% PF 5 ML SYRINGE OTHER ONE (12:00)
[2017-08-22] MEDS ORDERED: GLYCOPYRROLATE 1 MG/5 ML SYRINGE IV PUSH ONE (12:00)
[2017-08-22] MEDS ORDERED: PHENYLEPHRINE HCL 10 MG/ML VIAL IV ONE (12:00)
[2017-08-22] MEDS ORDERED: NEOSTIGMINE 5 MG/5 ML SYRINGE IV PUSH ONE (12:00)
[2017-08-22] MEDS ORDERED: PROPOFOL 200 MG/20 ML AMP ONE ×4 (13:06→15:07)
[2017-08-22] MEDS ORDERED: MIDAZOLAM HCL 2 MG/2 ML VIAL ONE (15:07)
[2017-08-22] MEDS ORDERED: ACETAMINOPHEN 1000 MG/100 ML 100 ML IV ONE (15:11)
[2017-08-22] MEDS ORDERED: VANCOMYCIN HCL 1000 MG VIAL OTHER ONE (16:00)
[2017-08-22] MEDS ORDERED: TOBRAMYCIN 1200 MG VIAL (for ortho/sterile core) OTHER ONE (16:01)
[2017-08-22] MEDS ORDERED: SOD PHOSPHATE/SOD BIPHOSPHATE (ADULT) ENEMA 133ML PR PRN (17:00)
[2017-08-22] MEDS ORDERED: NALOXONE HCL 0.4 MG/ML AMP IV PUSH PRN (17:00)
[2017-08-22] MEDS ORDERED: Vancomycin Consult Pharmacy 1 EA OTHER SCH (17:00)
[2017-08-22] MEDS ORDERED: SODIUM CHLORIDE 0.9% FLUSH 10 ML FLUSH IV FLUSH PRN (17:00)
[2017-08-22] MEDS ORDERED: BISACODYL 10 MG SUPP RECTAL PRN (17:00)
[2017-08-22] MEDS ORDERED: Post-op Orders (for Pharmacy) XX ONE (17:00)
[2017-08-22] MEDS ORDERED: DO NOT ADM ANY ANTICOAGULANT DRUGS PRN (17:04)
--- NOTE | 2017-08-22 17:08 | HHI.PR ---
cc: Jessica Stubbs MD Immediate Post Op Note Procedure Date: Aug 22, 2017 Pre Op Diagnosis: 1. L3-L4, L4-L5 spinal stenosis with neurogenic claudication 2. L3-L4, L4-L5, L5-S1 lateral recess and foraminal stenosis with radiculopathy BLE 3. Recurrent disc herniation L4-L5 4. Spondylolisthesis L4-L5 Post Op Diagnosis: same Surgeon: Jessica Stubbs Aircraft Magneto Mechanic(s): Dr. Rafael Beaulieu Procedure: 1. Right L3-L4, L4-L5, L5-S1 revision laminectomy 2. Left L3-L4, L4-L5, L5-S1 revision laminectomy Findings: Purulent appearing material dorsal to dura and around right L4-5 facet Complications: Small dural leak around right L3-4 facet Specimen(s) removed: cultures and pathology sent to lab for evaluation for possible infection Estimated blood loss: 700cc Anesthesia: General Drains: None IVF Patient to: PACU Patient Condition: Good Date/Time of Procedure: SEE SURGICAL CARE RECORD Jessica Stubbs MD Aug 22, 2017 17:08
[2017-08-22] MEDS: MORPHINE SULFATE 30 MG/30 ML PCA IV SCH (17:50)
[2017-08-22] MEDS: SODIUM CHLOR 0.9% 1000 ML INJ 1,000 ML IV SCH (17:50)
[2017-08-22] MEDS: PIPERACIL-TAZO 3.375 GM PREMIX 50 ML IV SCH (18:00)
[2017-08-22 20:00] VITALS: BP 104/71; PULSE 67; RESP 18; TEMP 96.4; O2SAT 94
[2017-08-22] MEDS: SODIUM CHLORIDE 0.9% FLUSH 10 ML FLUSH IV FLUSH SCH (21:42)
[2017-08-22] MEDS: PCA - TOTAL MG MORPHINE DELIVERED PER SHIFT SCH (21:48)
[2017-08-22 22:18] VITALS: O2SAT 98
[2017-08-22 23:24] VITALS: BP 126/64; PULSE 82; RESP 18; TEMP 98; O2SAT 98
[2017-08-23] VITALS (13 sets, daily range): BP systolic 97–123; BP diastolic 56–75; PULSE 85–107; RESP 16–18; TEMP 97–98.9; O2SAT 95–100
[2017-08-23] MEDS: SODIUM CHLOR 0.9% 1000 ML INJ 1,000 ML IV SCH ×2 (01:03→20:24)
[2017-08-23] MEDS ORDERED: VANCOMYCIN INJ 1,250 MG in SODIUM CHLOR 0.9% 250 ML INJ 250 ML IV ONE (02:00)
[2017-08-23] MEDS: PIPERACIL-TAZO 3.375 GM PREMIX 50 ML IV SCH ×2 (05:33→17:51)
[2017-08-23] MEDS: PCA - TOTAL MG MORPHINE DELIVERED PER SHIFT SCH ×2 (05:46→22:00)
[2017-08-23 07:08] LABS: HEMATOCRIT 19.2 % (39.0-51.0); HEMOGLOBIN 6.4 GM/DL (13.0-17.0)
--- NOTE | 2017-08-23 07:18 | PD.ORT.PN ---
Subjective Subjective Remarks Patient resting comfortably this morning. Reports his legs feel irritable this morning the pain relatively well controlled currently. Denies nausea vomiting. Denies shortness of breath. Objective Vitals Vital Signs Date Time Temp Pulse Resp B/P (MAP) Pulse Ox O2 Delivery O2 Flow Rate FiO2 08/23/17 05:46 19 08/23/17 03:24 98.5 107 18 109/56 (73) 98 08/22/17 23:24 98.0 82 18 126/64 (84) 98 08/22/17 22:18 98 Nasal Cannula 2.00 08/22/17 21:53 Nasal Cannula 2.00 08/22/17 21:48 19 08/22/17 20:00 96.4 67 18 104/71 (82) 94 08/22/17 19:45 97.5 64 16 107/65 (79) 98 Nasal Cannula 2 08/22/17 19:30 97.4 64 16 105/66 (79) 98 Nasal Cannula 2 08/22/17 19:15 63 16 111/70 (84) 98 Nasal Cannula 2 08/22/17 19:00 97.0 62 15 115/72 (86) 97 Nasal Cannula 2 08/22/17 18:45 65 15 116/67 (83) 96 Nasal Cannula 2 08/22/17 18:30 96.3 64 15 115/64 (81) 96 Nasal Cannula 2 08/22/17 18:15 66 15 113/62 (79) 95 Nasal Cannula 2 08/22/17 18:00 96.2 08/22/17 18:00 96.2 65 15 112/68 (83) 96 Nasal Cannula 2 08/22/17 17:50 15 08/22/17 17:45 68 15 106/60 (75) 95 Nasal Cannula 2 08/22/17 17:30 69 15 109/65 (80) 94 Nasal Cannula 2 08/22/17 17:15 67 15 111/66 (81) 94 Nasal Cannula 2 08/22/17 17:00 97.6 67 19 125/63 (83) 100 Nasal Cannula 3 I/O 08/22/17 08/22/17 08/22/17 08/23/17 08/23/17 08/23/17 07:00 15:00 23:00 07:00 15:00 23:00 Intake Total 3120 ml 1610 ml Output Total 3055 ml 860 ml Balance 65 ml 750 ml Intake Oral 120 ml 360 ml IV Total 1250 ml Other 3000 ml Output Urine Total 700 ml 850 ml Drainage Total 55 ml 10 ml Estimated Blood Loss 600 ml Other 1700 ml # Bowel Movements 0 0 Result Diagram: 08/23/1712 Objective Remarks Awake, alert, no acute distress Nonlabored respirations Bilateral lower extremities: 5 out of 5 strength throughout hip flexors, quads, hamstrings, tib ant, gastrocs, EHL and FHL. Sensation intact. Does complain of some radicular type pain posterior leg. Brisk cap refill Hemovac in place with serosanguineous drainage Assessment & Plan Assessment and Plan 72-year-old man now postop day 1 status post revision bilateral L3 4, L4 5 and L5-S1 laminectomies. Concern for purulence Intra-Op and therefore hardware placement was aborted and only decompression performed. Small intraoperative dural leak. 1. Bed rest and head of bed flat for approximate 72 hours. Okay to turn from side to side with head of bed flat. Will reassess tomorrow. 2. Hemovac to gravity only. No suction. 3. No chemical anticoagulation. DVT prophylaxis with SCDs/MONTSERRAT hose 4. Intraoperative cultures pending. Started on vancomycin and Zosyn. ID consult did for help with management. 5. Hemoglobin 6.4 this morning. Will transfuse 2 units. 6. Plan will be for likely return to the OR on Monday for possible hardware placement pending culture results and ID recommendations. Jessica Stubbs MD Aug 23, 2017 07:18
[2017-08-23 07:29] LABS: CREATININE 0.62 MG/DL (0.60-1.30)
[2017-08-23] MEDS: MORPHINE SULFATE 30 MG/30 ML PCA IV SCH ×2 (07:34→16:48)
--- NOTE | 2017-08-23 07:47 | PD.OP ---
cc: Jessica Stubbs MD Operative Report Date of Surgery: Aug 22, 2017 Preoperative Diagnosis: 1. L3-4, L4-5 lumbar stenosis with neurogenic claudication 2. L3-4, L4-5 and L5-S1 foraminal stenosis with bilateral lower extremity radiculopathy 3. 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 L3-4, L4-5 lumbar stenosis with neurogenic claudication 2. L3-4, L4-5 and L5-S1 foraminal stenosis with bilateral lower extremity radiculopathy 3. 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 Possible deep lumbar abscess Procedure: 1. Right revision laminectomies with partial facetectomies L3-4, L4-5 and L5-S1 2. Left revision laminectomies with partial facetectomies L3-4, L4-5 and L5-S1 3. Incision and drainage lumbar abscess Anesthesia: General Surgeon: Jessica Stubbs Data Warehouse Analyst(s): Dr. Rafael Beaulieu Operation and Findings: EBL: 600 cc Complications: Small CSF leak, self-contained Specimens: Multiple cultures and gross pathology sent to lab for evaluation Indications for procedure: Patient is a 72-year-old gentleman who underwent bilateral hemilaminectomies at L3-S1 in February of last year by my partner Dr. Janak Beaulieu. Initially, he had significant improvement in his radicular symptoms, however, he developed a large fluid collection requiring drainage in March. Subsequently, he developed recurrent symptoms and early May with imaging demonstrating a recurrent disc herniation requiring revision bilateral hemilaminectomies at L3-L5 by Dr. Beaulieu. Postoperatively, he had significant improvement in his symptoms for only 2 weeks with recurrent radiculopathy and neurogenic medications symptoms. Repeat imaging at the beginning of July demonstrated a recurrent disc herniation at L4-5 along with significant central and foraminal stenosis at L3-4 and foraminal stenosis at L5-S1. Options of management were discussed with the patient. Surgical intervention in the form of revision decompression with posterior instrumentation and fusion from L3-S1 with transforaminal interbody devices was discussed with the patient. Risks including but not limited to: Infection, hardware malposition or failure, CSF leak which could be persistent, neurologic injury leading to possible weakness or paralysis, pseudoarthrosis, adjacent segment disease requiring revision surgery, possible need for further surgery, worsening or no improvement in symptoms, and other unforeseen complications were all discussed with the patient. At this time he did consent to the above- mentioned procedure. Description of procedure: Patient was brought back to the operating room and general anesthesia then ensued. A Martin catheter was placed. Neuromonitoring leads were placed. An arterial line was started by anesthesia. Patient was then flipped prone onto the operating room table with all bony prominences well padded. Patient was prepped and draped in standard sterile fashion. A timeout was performed to identify the correct patient, side, site and procedures to be performed. Patient received preoperative antibiotics in the form of Ancef and vancomycin. An incision was made through the prior midline incision and extended distally approximately 2 cm. Sharp and electrocautery dissection was carried through the subcutaneous tissue and through the fascia. The remaining spinous process of L3 and S1 were utilized as midline guidelines to allow elevation of the paraspinals and scar tissue from the midline. There is a significant amount of scar tissue between the caudal edge of L3 and the superior edge of S1. This was initially left in place as dissection over the more cranial aspect of L3 and the caudal aspect of S1 was performed. Deep retractors were placed. At this time the facets and transverse processes were identified to allow for pedicle screws to be placed. However, as the right L4- 5 facet was identified and exposed there appeared to be purulent material coming from the facet. This was cultured and sent to the lab for stat interpretation. While awaiting the results, I turned my attention to the scar tissue between the caudal aspect of L3 and the cranial aspect of S1. As I started to remove this tissue, I encountered a large pocket of purulent appearing material just dorsal to the dura. This was also cultured and gross pathology sent to the lab. At this point, the initial cultures came back with moderate white blood cells with significant inflammatory tissue. My partner, Dr. Rafael Beaulieu, was available at this time to assist. As this purulence and inflamed tissue was removed, it was decided to abort the hardware insertion portion of the case given the significant concern for infection. At this time, I turned my attention to the revision decompression portion of the case. There was extensive scar tissue from the caudal aspect of L3 to the cranial aspect of S1. The edges of the remaining lamina, pars and spinous processes were freed of scar tissue and the scar tissue mobilized. The central decompression was revised at L3-4 with removal of the remaining lamina on both the right and left and extended to the lateral recesses. As the lateral recess on the right L3-4 level was removed, there appeared to be a small dural leak which sealed on its own and was self-contained. The central decompression was then revised at L5-S1 with removal of the remaining lamina on both the right and left and extended to the lateral recesses bilaterally with partial facetectomies. The remaining lamina of L4 was freed from scar tissue and then removed with the use of high-speed luisito and Kerrison rongeurs. There was noted to be significant stenosis at the level of the L4 lamina. The entirety of the L4 lamina on both the right and left was removed and the dural sac appeared to be free of significant compression at that point. The decompression was extended to the lateral recess with partial facetectomy, the right and left. The rest of the facets on both the right and left at L3-4, L4-L5 and L5-S1 were left in place as we were not planning to instrument at this time due to the concern for infection. In addition, it was elected to avoid a discectomy at this time as there was concern for infection dorsal to the dura sac and I would not want this tracked into the disc space should it be infection. The wound was thoroughly irrigated throughout the entire procedure but again with 1 L of normal saline laden with gentamicin at the end of the procedure. Hemostasis was achieved. A small piece of DuraGen was placed on the right side over the small dural leak. DuraSeal was then applied. A deep drain was placed below the fascia. The fascia was then closed with #1 PDS sutures. Subcutaneous tissue was then closed with 2-0 PDS sutures and skin closed with 2- 0 nylon sutures. Sterile dressings were applied. Patient was transferred from the operating room table onto a stretcher. Patient was then awoken from general anesthesia without complication. It should be noted the patient remained hemodynamically stable throughout the entire procedure. It should also be noted that there was difficulty obtaining baseline neuromonitoring, however, there were no appreciable adverse events throughout the procedure. Disposition: Patient will remain at bed rest with head of bed flat for at least 48 and possibly 72 hours for his small dural tear. Hemovac will be to gravity only, no suction. Will monitor intraoperative cultures and ask infectious disease to help with treatment. Jessica Stubbs MD Aug 23, 2017 07:47
[2017-08-23] MEDS: LISINOPRIL 10 MG TAB PO SCH (09:00)
[2017-08-23] MEDS: ALLOPURINOL 300 MG TAB PO SCH (09:00)
[2017-08-23] MEDS: TRIAMTERENE/HCTZ 37.5 MG/25 MG CAP PO SCH ×2 (09:00→21:59)
[2017-08-23] MEDS: MULTIVITAMIN TAB PO SCH (09:00)
[2017-08-23] MEDS: CARVEDILOL 6.25 MG TAB PO SCH ×2 (09:00→21:59)
[2017-08-23] MEDS: FUROSEMIDE 20 MG TAB PO SCH ×2 (09:00→21:59)
[2017-08-23] MEDS: PANTOPRAZOLE SOD 20 MG DELAYED RELEASE TAB PO SCH (09:00)
[2017-08-23] MEDS: SODIUM CHLORIDE 0.9% FLUSH 10 ML FLUSH IV FLUSH SCH ×2 (09:00→20:24)
[2017-08-23] MEDS: GABAPENTIN 400 MG CAP PO SCH ×3 (13:00→18:00)
[2017-08-23] MEDS: VANCOMYCIN INJ 2,000 MG in SODIUM CHLORID 0.9% 500 ML INJ 500 ML IV SCH (16:14)
--- NOTE | 2017-08-23 16:42 | PD.ID.CON ---
History of Present Illness Service ID Consult Requested By Reason for Consult Evaluation and Mment of NS staph Lumbar abscess possible osteomyelitis. Primary Care Physician Jina Turner M.D. Diagnoses: History of Present Illness is a 72 y/o CM who underwent bilateral hemilaminectomies at L3-S1 in February of 2017. Patient reports this is his 4th surgery but he has had no hardware to date. He reports he initially had significant improvement in his radicular symptoms, however, he developed a large fluid collection requiring drainage in March. Subsequently, he developed recurrent symptoms and early May with imaging demonstrating a recurrent disc herniation requiring revision bilateral hemilaminectomies at L3-L5 by Dr. Beaulieu. Postoperatively , he had significant improvement in his symptoms for only 2 weeks with recurrent radiculopathy and neurogenic medications symptoms. Repeat imaging at the beginning of July demonstrated a recurrent disc herniation at L4-5 along with significant central and foraminal stenosis at L3-4 and foraminal stenosis at L5-S1. Options of management were discussed with the patient. Summary of his surgeries in 2016 to date: 03/06/2017: L3-S1 bilateral hemilaminectomy, foraminotomy, partial facetectomy, decompression of nerve roots 04/17/2017: L-spine incision and drainage, drainage of seroma. Cultures intraoperatively with no growth. No antibiotics appear to be have prescribed on discharge. 06/21/2017: L3-L5 bilateral decompression, hemilaminectomy, foraminotomy, partial facetectomy, decompression with reexploration 08/23/2017: Right revision laminectomies with partial facetectomies L3-4, L4-5 and L5-S1, Left revision laminectomies with partial facetectomies L3-4, L4-5 and L5-S1, Incision and drainage lumbar abscess. Intraop cultures positive for Coag neg staph. Pertinent positives and negatives: denies B/B incontinence denies fever, chills or night sweats Reports anorexia and weight loss. Has perineal sensation. Defers rectal exam due to significant pain. No paresthesias or focal neuro deficit in LEs. Infectious disease is consulted for evaluation and management of coag-negative staphylococcus lumbar abscess possible osteomyelitis. Review of Systems Constitutional: DENIES: Diaphoretic episodes, Fatigue, Fever, Weight gain, Weight loss, Chills, Dizziness, Change in appetite, Night Sweats Endocrine: DENIES: Heat/cold intolerance, Polydipsia, Polyuria, Polyphagia Eyes: DENIES: Blurred vision, Diplopia, Eye inflammation, Eye pain, Vision loss , Photosensitivity, Double Vision Ears, nose, mouth, throat: DENIES: Tinnitus, Hearing loss, Vertigo, Nasal discharge, Oral lesions, Throat pain, Hoarseness, Ear Pain, Running Nose, Epistaxis, Sinus Pain, Toothache, Odynophagia Respiratory: DENIES: Apneas, Cough, Snoring, Wheezing, Hemoptysis, Sputum production, Shortness of breath Cardiovascular: DENIES: Chest pain, Palpitations, Syncope, Dyspnea on Exertion , PND, Lower Extremity Edema, Orthopnea, Claudication Gastrointestinal: COMPLAINS OF: Constipation, DENIES: Abdominal pain, Black stools, Bloody stools, Diarrhea, Nausea, Vomiting, Difficulty Swallowing, Anorexia Genitourinary: DENIES: Sexual dysfunction, Urinary frequency, Urinary incontinence, Urgency, Hematuria, Dysuria, Nocturia, Penile Discharge, Testicular Pain, Testicular Swelling Musculoskeletal: COMPLAINS OF: Stiffness, Back pain, DENIES: Joint pain, Muscle aches, Joint Swelling, Neck pain Integumentary: DENIES: Abnormal pigmentation, Nail changes, Pruritus, Rash Hematologic/lymphatic: DENIES: Bruising, Lymphadenopathy Immunologic/allergic: DENIES: Eczema, Urticaria Neurologic: DENIES: Abnormal gait, Headache, Localized weakness, Paresthesias, Seizures, Speech Problems, Tremor, Poor Balance Psychiatric: DENIES: Anxiety, Confusion, Mood changes, Depression, Hallucinations, Agitation, Suicidal Ideation, Homicidal Ideation, Delusions Except as stated in HPI: all other systems reviewed are Neg Past Family Social History Allergies: Coded Allergies: No Known Allergies (Verified Allergy, Unknown, 08/22/17) Past Medical History Gastric ulcers Right renal mass Hyperglycemia Gout Osteoarthritis of the hip Hypertension Spinal stenosis since 2015 status post multiple surgeries Impotence Idiopathic peripheral neuropathy Obesity Past Surgical History 03/06/2017: L3-S1 bilateral hemilaminectomy, foraminotomy, partial facetectomy, decompression of nerve roots 04/17/2017: L-spine incision and drainage, drainage of seroma. Cultures intraoperatively with no growth. No antibiotics appear to be have prescribed on discharge. 06/21/2017: L3-L5 bilateral decompression, hemilaminectomy, foraminotomy, partial facetectomy, decompression with reexploration 08/23/2017: Right revision laminectomies with partial facetectomies L3-4, L4-5 and L5-S1, Left revision laminectomies with partial facetectomies L3-4, L4-5 and L5-S1, Incision and drainage lumbar abscess. Intraop cultures positive for Coag neg staph. Bilateral hernia repair EGD Colonoscopy Reported Medications Reviewed patient reports no antibiotics prior to surgery Active Ordered Medications Current Medications Medications (Trade) Dose Ordered Sig/Samia Route Start Time Stop Time Status Last Admin (NS Flush) 2 ml UNSCH PRN IV FLUSH 08/22/17 17:00 (NS Flush) 2 ml BID IV FLUSH 08/22/17 21:00 08/22/17 21:42 (Zofran Inj) 4 mg Q6H PRN IV PUSH 08/22/17 17:00 (Colace) 100 mg BID PO 08/23/17 21:00 (Dulcolax Supp) 10 mg DAILY PRN RECTAL 08/22/17 17:00 (Fleets Enema (Adult)) 133 ml DAILY PRN ND 08/22/17 17:00 (Narcan Inj) 0.4 mg UNSCH PRN IV PUSH 08/22/17 17:00 (Morphine 1 Mg/ ml [employer]) 30 mg UNSCH IV 08/22/17 17:00 08/23/17 16:48 [employer] Dosage Infused (Pha) 1 Q8HR .XX 08/22/17 22:00 08/23/17 05:46 Pharmacy Profile Note 0 ml @ 0 mls/hr UNSCH OTHER 08/22/17 17:00 Piperacillin Sod/ Tazobactam Sod 50 ml @ 100 mls/hr Q12H IV 08/22/17 18:00 08/23/17 05:33 Sodium Chloride 1,000 ml @ 125 mls/hr Q8H IV 08/22/17 17:30 08/23/17 01:03 (Zyloprim) 300 mg DAILY PO 08/23/17 09:00 (Coreg) 6.25 mg BID PO 08/23/17 09:00 (Lasix) 20 mg BID PO 08/23/17 09:00 (Neurontin) 400 mg TID PO 08/23/17 09:00 (Prinivil) 10 mg DAILY PO 08/23/17 09:00 (Protonix) 20 mg DAILY PO 08/23/17 09:00 (Dyazide 37.5-25 Mg) 1 cap BID PO 08/23/17 09:00 (Theragran) 1 tab DAILY PO 08/23/17 09:00 (Flexeril) 10 mg Q8H PRN PO 08/23/17 07:45 Vancomycin HCl 2000 mg/Sodium Chloride 520 ml @ 250 mls/hr Q12H IV 08/23/17 14:00 08/23/17 16:14 Miscellaneous Information SPECIFIC LAB TO BE DRAWN:VANCOMYCIN TROUGH DATE TO... ONCE ONCE .XX 08/25/17 01:45 08/25/17 01:46 Family History Reviewed and noncontributory to current infectious disease problems. Social History Lives at home with his . Has been using a walker since February 2017. Lately has been bedbound due to significant pain. Reports prior history of smoking with quit many years back. No alcohol No illicit drugs. Physical Exam Vital Signs Vital Signs Date Time Temp Pulse Resp B/P (MAP) Pulse Ox O2 Delivery O2 Flow Rate FiO2 08/23/17 15:18 98 Nasal Cannula 2.00 08/23/17 14:10 98.9 92 18 119/69 99 08/23/17 13:50 98.5 98 18 97/59 98 08/23/17 13:03 98.5 98 18 97/59 98 08/23/17 12:00 98.5 98 18 97/59 (72) 95 08/23/17 10:20 98.8 95 18 108/63 08/23/17 10:01 98.9 97 16 113/69 100 08/23/17 08:00 98.8 100 18 104/64 (77) 97 08/23/17 07:49 97 21 08/23/17 07:34 16 08/23/17 05:46 19 08/23/17 03:24 98.5 107 18 109/56 (73) 98 08/22/17 23:24 98.0 82 18 126/64 (84) 98 08/22/17 22:18 98 Nasal Cannula 2.00 08/22/17 21:53 Nasal Cannula 2.00 08/22/17 21:48 19 08/22/17 20:00 96.4 67 18 104/71 (82) 94 08/22/17 19:45 97.5 64 16 107/65 (79) 98 Nasal Cannula 2 08/22/17 19:30 97.4 64 16 105/66 (79) 98 Nasal Cannula 2 08/22/17 19:15 63 16 111/70 (84) 98 Nasal Cannula 2 08/22/17 19:00 97.0 62 15 115/72 (86) 97 Nasal Cannula 2 08/22/17 18:45 65 15 116/67 (83) 96 Nasal Cannula 2 08/22/17 18:30 96.3 64 15 115/64 (81) 96 Nasal Cannula 2 08/22/17 18:15 66 15 113/62 (79) 95 Nasal Cannula 2 08/22/17 18:00 96.2 08/22/17 18:00 96.2 65 15 112/68 (83) 96 Nasal Cannula 2 08/22/17 17:50 15 08/22/17 17:45 68 15 106/60 (75) 95 Nasal Cannula 2 08/22/17 17:30 69 15 109/65 (80) 94 Nasal Cannula 2 08/22/17 17:15 67 15 111/66 (81) 94 Nasal Cannula 2 08/22/17 17:00 97.6 67 19 125/63 (83) 100 Nasal Cannula 3 Physical Exam GENERAL: This is a well-nourished, well-developed patient, in no apparent distress. SKIN: No rashes, ecchymoses or lesions. Cool and dry. HEAD: Atraumatic. Normocephalic. No temporal or scalp tenderness. EYES: Pupils equal round and reactive. Extraocular motions intact. No scleral icterus. No injection or drainage. ENT: Nose without bleeding, purulent drainage or septal hematoma. Throat without erythema, tonsillar hypertrophy or exudate. Uvula midline. Airway patent. NECK: Trachea midline. Supple, nontender, no meningeal signs. CARDIOVASCULAR: Regular rate and rhythm without murmurs, gallops, or rubs. RESPIRATORY: Clear to auscultation. Breath sounds equal bilaterally. No wheezes , rales, or rhonchi. GASTROINTESTINAL: Abdomen soft, non-tender, nondistended. MUSCULOSKELETAL: Extremities without clubbing, cyanosis, or edema. No joint tenderness, effusion, or edema noted. No calf tenderness. Negative Homans sign bilaterally. Wiggles his toes. NEUROLOGICAL: Awake and alert. Non focal exam. Psych cooperative IV line sites with no e.o infection. Laboratory Laboratory Tests Test 08/23/17 06:12 Hemoglobin 6.4 Hematocrit 19.2 Creatinine 0.62 Estimat Glomerular Filtration Rate 128 Date/Time Source Procedure Growth Status 08/22/17 11:23 Wound Back Fungal Smear - Final NO FUNGAL ELEMENTS SEEN. Resulted 08/22/17 11:23 Wound Back Fungal Culture Pending Resulted Result Diagram: 08/23/1712 08/23/1712 Assessment and Plan Assessment and Plan Lumbar spinal abscess probable osteomyelitis. No hardware in place. Coag neg staph spinal abscess. Lumbar stenosis with radiculopathy with significant pain. Multiple spinal surgeries in 2017. Recs: Continue Vanco IV(target 15-20). Follow intraop cultures. Follow clinically. Patient informs me that plans on hardware surgery this week. This remains to be confirmed with . I have placed a call out to her. I would not recommend placing hardware in middle of infectious process as hardware can get seeded. If spinal stability is an issue then we may have to make an exception but patient will need to be made aware that infection clearance in that setting would be difficult and he may need oral suppression after prolonged IV and may still have recurrent infection. Will [email or web address] Dietrich. d.w Clinical pharmacist about Vanco IV dosing. Addendum d.w agree to Vanco IV for 6-8 weeks depending on follow up imaging and trend for inflammatory markers. Marla Culp MD Aug 23, 2017 16:42
[2017-08-23] MEDS: DOCUSATE SODIUM 100 MG CAP PO SCH (21:59)
[2017-08-24 00:40] VITALS: BP 115/63; PULSE 90; RESP 18; TEMP 97.4; O2SAT 98
[2017-08-24] MEDS: SODIUM CHLOR 0.9% 1000 ML INJ 1,000 ML IV SCH ×2 (01:30→09:30)
[2017-08-24] MEDS: VANCOMYCIN INJ 2,000 MG in SODIUM CHLORID 0.9% 500 ML INJ 500 ML IV SCH ×2 (01:50→14:00)
[2017-08-24 04:05] VITALS: BP_SYST 113; BP_SYST 171; BP_DIAS 64; BP_DIAS 93; PULSE 88; PULSE 89; RESP 16; RESP 18; TEMP 97.1; TEMP 98.6; O2SAT 97
[2017-08-24 05:26] LABS: AUTOMATED NEUTROPHIL # 5.2 TH/MM3 (1.8-7.7); BASOPHIL # 0.1 TH/MM3 (0-0.2); BASOPHIL % 0.7 % (0.0-2.0); EOSINOPHIL # 0.1 TH/MM3 (0-0.4); EOSINOPHIL % 0.8 % (0.0-4.0); HEMATOCRIT 25.3 % (39.0-51.0); HEMOGLOBIN 8.7 GM/DL (13.0-17.0); LYMPH % 24.7 % (9.0-44.0); LYMPHOCYTE # 2.1 TH/MM3 (1.0-4.8); MEAN CELL VOLUME 89.3 FL (80.0-100.0); MEAN CORPUSCULAR HEMOGLOBIN 30.6 PG (27.0-34.0); MEAN CORPUSCULAR HGB CONC 34.3 % (32.0-36.0); MEAN PLATELET VOLUME 8.1 FL (7.0-11.0); MONO % 12.8 % (0.0-8.0); MONOCYTE # 1.1 TH/MM3 (0-0.9); PLATELET COUNT 244 TH/MM3 (150-450); RED BLOOD COUNT 2.83 MIL/MM3 (4.50-5.90); RED CELL DISTRIBUTION WIDTH 17.4 % (11.6-17.2); WHITE BLOOD COUNT 8.6 TH/MM3 (4.0-11.0)
[2017-08-24 05:41] LABS: CREATININE 0.47 MG/DL (0.60-1.30)
[2017-08-24] MEDS: PIPERACIL-TAZO 3.375 GM PREMIX 50 ML IV SCH ×2 (05:44→17:40)
[2017-08-24] MEDS: PCA - TOTAL MG MORPHINE DELIVERED PER SHIFT SCH (05:47)
[2017-08-24] MEDS: MORPHINE SULFATE 30 MG/30 ML PCA IV SCH (05:54)
--- NOTE | 2017-08-24 07:50 | PD.ORT.PN ---
Subjective Subjective Remarks Patient resting comfortably this morning. Reports his legs feel irritable this morning the pain relatively well controlled currently. Denies nausea vomiting. Denies shortness of breath. Objective Vitals Vital Signs Date Time Temp Pulse Resp B/P (MAP) Pulse Ox O2 Delivery O2 Flow Rate FiO2 08/24/17 05:54 19 08/24/17 05:47 19 08/24/17 04:05 98.6 89 18 113/64 (80) 97 08/24/17 00:40 97.4 90 18 115/63 (80) 98 08/23/17 22:00 20 08/23/17 21:00 97.0 85 18 123/75 (91) 98 08/23/17 20:00 98 Room Air 08/23/17 17:02 98.2 91 18 121/71 98 08/23/17 16:48 16 08/23/17 16:00 98.2 91 18 121/71 (88) 98 08/23/17 15:18 98 Nasal Cannula 2.00 08/23/17 14:10 98.9 92 18 119/69 99 08/23/17 13:50 98.5 98 18 97/59 98 08/23/17 13:03 98.5 98 18 97/59 98 08/23/17 12:00 98.5 98 18 97/59 (72) 95 08/23/17 10:20 98.8 95 18 108/63 08/23/17 10:01 98.9 97 16 113/69 100 08/23/17 08:00 98.8 100 18 104/64 (77) 97 08/23/17 07:49 97 21 I/O 08/23/17 08/23/17 08/23/17 08/24/17 08/24/17 08/24/17 07:00 15:00 23:00 07:00 15:00 23:00 Intake Total 1610 ml 853 ml 2497 ml 773 ml 960 ml Output Total 860 ml 2525 ml 700 ml 2900 ml Balance 750 ml -1672 ml 1797 ml 773 ml -1940 ml Intake Oral 360 ml 480 ml 480 ml 960 ml IV Total 1250 ml 1617 ml 773 ml Packed Cells 368 ml 400 ml Blood Product IV Normal Saline Flush 5 ml Output Urine Total 850 ml 2475 ml 700 ml 2900 ml Drainage Total 10 ml 50 ml # Bowel Movements 0 0 0 0 Result Diagram: 08/24/1740908/24/17409 Objective Remarks Sleeping but arousable, no acute distress Nonlabored respirations Bilateral lower extremities: 5 out of 5 strength throughout hip flexors, quads, hamstrings, tib ant, gastrocs, EHL and FHL. Sensation intact. Does complain of some radicular type pain posterior leg. Brisk cap refill Assessment & Plan Assessment and Plan 72-year-old man now postop day 2 status post revision bilateral L3 4, L4 5 and L5-S1 laminectomies. Concern for purulence Intra-Op and therefore hardware placement was aborted and only decompression performed. Small intraoperative dural leak. 1. Bed rest and head of bed flat for approximate 72 hours. Patient remained flat today. Likely plan for head of bed trial starting tomorrow morning. 2. Hemovac accidentally removed by patient overnight. 3. No chemical anticoagulation. DVT prophylaxis with SCDs/MONTSERRAT hose 4. Intraoperative cultures show Staphylococcus, specific species and sensitivities to follow. appreciate ID assistance. Given positive cultures, I will not be able to place hardware in the next several weeks. I discussed with the patient that it will likely be at least 2-3 months before we are able to place hardware. He will require brace when he is out of bed. He will require likely 6-8 weeks of IV antibiotics prior to any type of consideration for hardware placement. 5. Received 2 units of PRBCs yesterday with good response. Hemoglobin 8.7 this morning. Will monitor her over today and tomorrow morning. 6. I expect patient will require placement given he has significant mobilization issues prior to surgery. He has minimal assistance with only his at home he was not able to help him get out of bed or mobilize. Jessica Stubbs MD Aug 24, 2017 07:50
[2017-08-24] MEDS: MULTIVITAMIN TAB PO SCH (07:53)
[2017-08-24] MEDS: LISINOPRIL 10 MG TAB PO SCH (07:54)
[2017-08-24] MEDS: PANTOPRAZOLE SOD 20 MG DELAYED RELEASE TAB PO SCH (07:54)
[2017-08-24] MEDS: DOCUSATE SODIUM 100 MG CAP PO SCH ×2 (07:54→20:42)
[2017-08-24] MEDS: CARVEDILOL 6.25 MG TAB PO SCH ×2 (07:54→20:42)
[2017-08-24] MEDS: GABAPENTIN 400 MG CAP PO SCH ×3 (07:54→17:40)
[2017-08-24] MEDS: FUROSEMIDE 20 MG TAB PO SCH ×2 (07:55→20:42)
[2017-08-24] MEDS: ALLOPURINOL 300 MG TAB PO SCH (07:55)
[2017-08-24] MEDS: TRIAMTERENE/HCTZ 37.5 MG/25 MG CAP PO SCH ×2 (07:55→20:42)
[2017-08-24 08:00] VITALS: BP 97/62; PULSE 86; RESP 18; TEMP 97.9; O2SAT 99
[2017-08-24] MEDS ORDERED: MORPHINE SULFATE 2 MG/ML INJ IV PUSH PRN (08:00)
[2017-08-24] MEDS: SODIUM CHLORIDE 0.9% FLUSH 10 ML FLUSH IV FLUSH SCH ×2 (09:00→20:42)
[2017-08-24] MEDS: ACETAMINOPHEN/HYDROcodone 325 MG/10 MG TAB PO PRN ×3 (10:55→22:10)
[2017-08-24 12:00] VITALS: BP 84/50; PULSE 80; RESP 18; TEMP 98; O2SAT 92
[2017-08-24] MEDS ORDERED: PHARMACY ORDERED LAB ONE (13:45)
[2017-08-24 16:00] VITALS: BP 84/46; PULSE 87; RESP 18; TEMP 98.5; O2SAT 97
--- NOTE | 2017-08-24 17:49 | HHI.IDPN ---
Subjective Subjective Remarks is a 72 y/o CM who underwent bilateral hemilaminectomies at L3-S1 in February of 2017. Patient reports this is his 4th surgery but he has had no hardware to date. He reports he initially had significant improvement in his radicular symptoms, however, he developed a large fluid collection requiring drainage in March. Subsequently, he developed recurrent symptoms and early May with imaging demonstrating a recurrent disc herniation requiring revision bilateral hemilaminectomies at L3-L5 by Dr. Beaulieu. Postoperatively , he had significant improvement in his symptoms for only 2 weeks with recurrent radiculopathy and neurogenic medications symptoms. Repeat imaging at the beginning of July demonstrated a recurrent disc herniation at L4-5 along with significant central and foraminal stenosis at L3-4 and foraminal stenosis at L5-S1. Options of management were discussed with the patient. Summary of his surgeries in 2017 to date: 03/06/2017: L3-S1 bilateral hemilaminectomy, foraminotomy, partial facetectomy, decompression of nerve roots 04/17/2017: L-spine incision and drainage, drainage of seroma. Cultures intraoperatively with no growth. No antibiotics appear to be have prescribed on discharge. 06/21/2017: L3-L5 bilateral decompression, hemilaminectomy, foraminotomy, partial facetectomy, decompression with reexploration 08/23/2017: Right revision laminectomies with partial facetectomies L3-4, L4-5 and L5-S1, Left revision laminectomies with partial facetectomies L3-4, L4-5 and L5-S1, Incision and drainage lumbar abscess. Intraop cultures positive for Coag neg staph. Pertinent positives and negatives: denies B/B incontinence denies fever, chills or night sweats Reports anorexia and weight loss. Has perineal sensation. Defers rectal exam due to significant pain. No paresthesias or focal neuro deficit in LEs. Infectious disease is consulted for evaluation and management of coag-negative staphylococcus lumbar abscess possible osteomyelitis. ROS - General Review of Systems Constitutional: DENIES: Diaphoretic episodes, Fatigue, Fever, Weight gain, Weight loss, Chills, Dizziness, Change in appetite, Night Sweats Endocrine: DENIES: Heat/cold intolerance, Polydipsia, Polyuria, Polyphagia Eyes: DENIES: Blurred vision, Diplopia, Eye inflammation, Eye pain, Vision loss , Photosensitivity, Double Vision Ears, nose, mouth, throat: DENIES: Tinnitus, Hearing loss, Vertigo, Nasal discharge, Oral lesions, Throat pain, Hoarseness, Ear Pain, Running Nose, Epistaxis, Sinus Pain, Toothache, Odynophagia Respiratory: DENIES: Apneas, Cough, Snoring, Wheezing, Hemoptysis, Sputum production, Shortness of breath Cardiovascular: DENIES: Chest pain, Palpitations, Syncope, Dyspnea on Exertion , PND, Lower Extremity Edema, Orthopnea, Claudication Gastrointestinal: COMPLAINS OF: Constipation, DENIES: Abdominal pain, Black stools, Bloody stools, Diarrhea, Nausea, Vomiting, Difficulty Swallowing, Anorexia Genitourinary: DENIES: Sexual dysfunction, Urinary frequency, Urinary incontinence, Urgency, Hematuria, Dysuria, Nocturia, Penile Discharge, Testicular Pain, Testicular Swelling Musculoskeletal: COMPLAINS OF: Stiffness, Back pain, DENIES: Joint pain, Muscle aches, Joint Swelling, Neck pain Integumentary: DENIES: Abnormal pigmentation, Nail changes, Pruritus, Rash Hematologic/lymphatic: DENIES: Bruising, Lymphadenopathy Immunologic/allergic: DENIES: Eczema, Urticaria Neurologic: DENIES: Abnormal gait, Headache, Localized weakness, Paresthesias, Seizures, Speech Problems, Tremor, Poor Balance Psychiatric: DENIES: Anxiety, Confusion, Mood changes, Depression, Hallucinations, Agitation, Suicidal Ideation, Homicidal Ideation, Delusions Except as stated in HPI: all other systems reviewed are Neg PFSH Past Family Social History Allergies: Coded Allergies: No Known Allergies (Verified Allergy, Unknown, 08/22/17) Past Medical History Gastric ulcers Right renal mass Hyperglycemia Gout Osteoarthritis of the hip Hypertension Spinal stenosis since 2014 status post multiple surgeries Impotence Idiopathic peripheral neuropathy Obesity Past Surgical History 03/06/2017: L3-S1 bilateral hemilaminectomy, foraminotomy, partial facetectomy, decompression of nerve roots 04/17/2017: L-spine incision and drainage, drainage of seroma. Cultures intraoperatively with no growth. No antibiotics appear to be have prescribed on discharge. 06/21/2017: L3-L5 bilateral decompression, hemilaminectomy, foraminotomy, partial facetectomy, decompression with reexploration 08/23/2017: Right revision laminectomies with partial facetectomies L3-4, L4-5 and L5-S1, Left revision laminectomies with partial facetectomies L3-4, L4-5 and L5-S1, Incision and drainage lumbar abscess. Intraop cultures positive for Coag neg staph. Bilateral hernia repair EGD Colonoscopy Overnight events reviewed Complains of left eye irritation No fever No rash No diarrhea off pain pump on oral pain meds. Antibiotics Vanco IV Lines Line sites with no e.o infection Past Medical History Gastric ulcers Right renal mass Hyperglycemia Gout Osteoarthritis of the hip Hypertension Spinal stenosis since 2014 status post multiple surgeries Impotence Idiopathic peripheral neuropathy Obesity Past Surgical History 03/06/2017: L3-S1 bilateral hemilaminectomy, foraminotomy, partial facetectomy, decompression of nerve roots 04/17/2017: L-spine incision and drainage, drainage of seroma. Cultures intraoperatively with no growth. No antibiotics appear to be have prescribed on discharge. 06/21/2017: L3-L5 bilateral decompression, hemilaminectomy, foraminotomy, partial facetectomy, decompression with reexploration 08/23/2017: Right revision laminectomies with partial facetectomies L3-4, L4-5 and L5-S1, Left revision laminectomies with partial facetectomies L3-4, L4-5 and L5-S1, Incision and drainage lumbar abscess. Intraop cultures positive for Coag neg staph. Bilateral hernia repair EGD Colonoscopy Allergies: Coded Allergies: No Known Allergies (Verified Allergy, Unknown, 08/22/17) Objective . Vital Signs Date Time Temp Pulse Resp B/P (MAP) Pulse Ox O2 Delivery O2 Flow Rate FiO2 08/24/17 12:00 98.0 80 18 84/50 (61) 92 08/24/17 08:00 97.9 86 18 97/62 (74) 99 08/24/17 07:20 Nasal Cannula 2.00 08/24/17 05:54 19 08/24/17 05:47 19 08/24/17 04:05 98.6 89 18 113/64 (80) 97 08/24/17 00:40 97.4 90 18 115/63 (80) 98 08/23/17 22:00 20 08/23/17 21:00 97.0 85 18 123/75 (91) 98 08/23/17 20:00 98 Room Air 08/24/17 08/24/17 08/25/17 15:00 23:00 07:00 Intake Total 960 ml Output Total 2900 ml Balance -1940 ml Intake Oral 960 ml Output Urine Total 2900 ml # Bowel Movements 0 . Laboratory Tests Test 08/23/17 06:12 08/24/17 04:10 Hemoglobin 6.4 GM/DL 8.7 GM/DL Hematocrit 19.2 % 25.3 % White Blood Count 8.6 TH/MM3 Red Blood Count 2.83 MIL/MM3 Mean Corpuscular Volume 89.3 FL Mean Corpuscular Hemoglobin 30.6 PG Mean Corpuscular Hemoglobin Concent 34.3 % Red Cell Distribution Width 17.4 % Platelet Count 244 TH/MM3 Mean Platelet Volume 8.1 FL Neutrophils (%) (Auto) 61.0 % Lymphocytes (%) (Auto) 24.7 % Monocytes (%) (Auto) 12.8 % Eosinophils (%) (Auto) 0.8 % Basophils (%) (Auto) 0.7 % Neutrophils # (Auto) 5.2 TH/MM3 Lymphocytes # (Auto) 2.1 TH/MM3 Monocytes # (Auto) 1.1 TH/MM3 Eosinophils # (Auto) 0.1 TH/MM3 Basophils # (Auto) 0.1 TH/MM3 CBC Comment DIFF FINAL Differential Comment Erythrocyte Sedimentation Rate 83 mm/hr Laboratory Tests Test 08/23/17 06:12 08/24/17 04:10 Creatinine 0.62 MG/DL 0.47 MG/DL Estimat Glomerular Filtration Rate 128 ML/MIN 177 ML/MIN Microbiology Date/Time Source Procedure Growth Status 08/22/17 11:23 Wound Back Fungal Smear - Final NO FUNGAL ELEMENTS SEEN. Resulted 08/22/17 11:23 Wound Back Fungal Culture Pending Resulted 08/22/17 11:23 Wound Back Gram Stain - Final Resulted 08/22/17 11:23 Wound Culture - Preliminary Staph Sp Coagulase Negative Resulted 08/22/17 11:17 Wound Back Gram Stain - Final Complete 08/22/17 11:17 Wound Culture - Final Staphylococcus Lugdunensis Complete 08/22/17 11:08 Wound Back Fungal Smear - Final NO FUNGAL ELEMENTS SEEN. Resulted 08/22/17 11:08 Wound Back Fungal Culture Pending Resulted 08/22/17 11:03 Wound Back Acid Fast Stain - Final NO ACID FAST BACILLI SEEN Resulted 08/22/17 11:03 Wound Back Mycobacterial Culture Pending Resulted 08/22/17 11:03 Wound Back Fungal Smear - Final NO FUNGAL ELEMENTS SEEN. Resulted 08/22/17 11:03 Wound Back Fungal Culture Pending Resulted 08/22/17 11:03 Wound Back Acid Fast Stain - Final NO ACID FAST BACILLI SEEN Resulted 08/22/17 11:03 Wound Back Mycobacterial Culture Pending Resulted 08/22/17 11:03 Wound Back Gram Stain - Final Resulted 08/22/17 11:03 Wound Culture - Preliminary Staph Sp Coagulase Negative Resulted 08/22/17 10:58 Wound Back Acid Fast Stain - Final NO ACID FAST BACILLI SEEN Resulted 08/22/17 10:58 Wound Back Mycobacterial Culture Pending Resulted 08/22/17 10:00 Wound Back Fungal Smear - Final NO FUNGAL ELEMENTS SEEN. Resulted 08/22/17 10:00 Wound Back Fungal Culture Pending Resulted 08/22/17 10:00 Wound Back Acid Fast Stain - Final NO ACID FAST BACILLI SEEN Resulted 08/22/17 10:00 Wound Back Mycobacterial Culture Pending Resulted 08/22/17 10:00 Wound Back Gram Stain - Final Complete 08/22/17 10:00 Wound Culture - Final Staphylococcus Lugdunensis Complete 08/22/17 10:00 Wound Back Fungal Smear - Final NO FUNGAL ELEMENTS SEEN. Resulted 08/22/17 10:00 Wound Back Fungal Culture Pending Resulted 08/22/17 10:00 Wound Back Acid Fast Stain - Final NO ACID FAST BACILLI SEEN Resulted 08/22/17 10:00 Wound Back Mycobacterial Culture Pending Resulted 08/22/17 10:00 Wound Back Gram Stain - Final Complete 08/22/17 10:00 Wound Culture - Final Staphylococcus Lugdunensis Complete Physical Exam GENERAL: This is a well-nourished, well-developed patient, in no apparent distress. SKIN: No rashes, ecchymoses or lesions. Cool and dry. HEAD: Atraumatic. Normocephalic. No temporal or scalp tenderness. EYES: Pupils equal round and reactive. Extraocular motions intact. No scleral icterus. No injection or drainage. ENT: Nose without bleeding, purulent drainage or septal hematoma. Throat without erythema, tonsillar hypertrophy or exudate. Uvula midline. Airway patent. NECK: Trachea midline. Supple, nontender, no meningeal signs. CARDIOVASCULAR: Regular rate and rhythm without murmurs, gallops, or rubs. RESPIRATORY: Clear to auscultation. Breath sounds equal bilaterally. No wheezes , rales, or rhonchi. GASTROINTESTINAL: Abdomen soft, non-tender, nondistended. MUSCULOSKELETAL: Extremities without clubbing, cyanosis, or edema. No joint tenderness, effusion, or edema noted. No calf tenderness. Negative Homans sign bilaterally. Wiggles his toes. Surgical site ok. NEUROLOGICAL: Awake and alert. Non focal exam. Psych cooperative IV line sites with no e.o infection. 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 No hardware in place. Coag neg staph spinal abscess. Staph Lugdenensis spinal abscess Lumbar stenosis with radiculopathy with significant pain. Multiple spinal surgeries in 2017. Recs: Continue Vanco IV(target 15-20). Follow intraop cultures. Follow clinically. Once cultures final will provide final DC regimen. will need rehab placement. PICC line consult. Marla Culp MD Aug 24, 2017 17:49
[2017-08-24 20:40] VITALS: BP 96/52; PULSE 85; RESP 18; TEMP 97.8; O2SAT 98
[2017-08-25] VITALS: BP 98/52; PULSE 83; RESP 15; TEMP 96.1; O2SAT 92
[2017-08-25 03:47] VITALS: BP 101/57; PULSE 85; RESP 15; TEMP 97.3; O2SAT 94
[2017-08-25 05:12] LABS: AUTOMATED NEUTROPHIL # 6.1 TH/MM3 (1.8-7.7); BASOPHIL # 0.1 TH/MM3 (0-0.2); BASOPHIL % 0.5 % (0.0-2.0); EOSINOPHIL # 0.2 TH/MM3 (0-0.4); HEMATOCRIT 24.4 % (39.0-51.0); HEMOGLOBIN 8.3 GM/DL (13.0-17.0); LYMPH % 20.8 % (9.0-44.0); MEAN CELL VOLUME 88.3 FL (80.0-100.0); MEAN CORPUSCULAR HEMOGLOBIN 30.1 PG (27.0-34.0); MEAN CORPUSCULAR HGB CONC 34.1 % (32.0-36.0); MEAN PLATELET VOLUME 7.9 FL (7.0-11.0); MONO % 11.7 % (0.0-8.0); MONOCYTE # 1.1 TH/MM3 (0-0.9); PLATELET COUNT 216 TH/MM3 (150-450); RED BLOOD COUNT 2.76 MIL/MM3 (4.50-5.90); RED CELL DISTRIBUTION WIDTH 17.5 % (11.6-17.2); WHITE BLOOD COUNT 9.4 TH/MM3 (4.0-11.0)
[2017-08-25] MEDS: PIPERACIL-TAZO 3.375 GM PREMIX 50 ML IV SCH (05:24)
[2017-08-25] MEDS: ACETAMINOPHEN/HYDROcodone 325 MG/10 MG TAB PO PRN ×5 (05:24→22:51)
[2017-08-25 05:44] LABS: ALBUMIN 2.1 GM/DL (3.4-5.0); AST (GOT) 18 U/L (15-37); BICARBONATE 22.2 MEQ/L (21.0-32.0); BLOOD UREA NITROGEN 13 MG/DL (7-18); CALCIUM 7.8 MG/DL (8.5-10.1); CHLORIDE 106 MEQ/L (98-107); CREATININE 1.16 MG/DL (0.60-1.30); GLOMERULAR FILTRATION RATE 62 ML/MIN (>89); GLUCOSE,RANDOM 118 MG/DL (74-106); SODIUM (NA) 138 MEQ/L (136-145)
[2017-08-25 05:45] LABS: ALT (GPT) 13 U/L (12-78)
[2017-08-25 05:48] LABS: ALKALINE PHOSPHATASE 92 U/L (45-117); TOTAL BILIRUBIN ADULT 0.7 MG/DL (0.2-1.0); TOTAL PROTEIN 5.4 GM/DL (6.4-8.2)
[2017-08-25 07:39] VITALS: BP 102/57; PULSE 82; RESP 18; TEMP 97.7; O2SAT 97
[2017-08-25] MEDS: GABAPENTIN 400 MG CAP PO SCH ×3 (08:45→18:09)
[2017-08-25] MEDS: ALLOPURINOL 300 MG TAB PO SCH (08:45)
[2017-08-25] MEDS: FUROSEMIDE 20 MG TAB PO SCH ×2 (08:45→21:00)
[2017-08-25] MEDS: CARVEDILOL 6.25 MG TAB PO SCH ×2 (08:45→21:00)
[2017-08-25] MEDS: MULTIVITAMIN TAB PO SCH (08:45)
[2017-08-25] MEDS: LISINOPRIL 10 MG TAB PO SCH (08:46)
[2017-08-25] MEDS: DOCUSATE SODIUM 100 MG CAP PO SCH ×2 (08:46→21:48)
[2017-08-25] MEDS: PANTOPRAZOLE SOD 20 MG DELAYED RELEASE TAB PO SCH (08:46)
[2017-08-25] MEDS: TRIAMTERENE/HCTZ 37.5 MG/25 MG CAP PO SCH ×2 (08:46→21:00)
[2017-08-25] MEDS: SODIUM CHLORIDE 0.9% FLUSH 10 ML FLUSH IV FLUSH SCH ×2 (08:50→21:50)
[2017-08-25 11:33] VITALS: BP 104/65; PULSE 86; RESP 18; TEMP 97.9; O2SAT 96
--- NOTE | 2017-08-25 12:49 | PD.ORT.PN ---
Subjective Subjective Remarks Patient resting comfortably this morning. Sitting almost upright at this time eating lunch. Denies any headaches or nausea. Reports some mild back ache but states he is relatively comfortable while sitting or lying. He does reports some mild discomforts and swelling about his left eyebrow which she states started approximate 1 week ago. Denies any visual changes or blurry vision. Denies any pain about the eye itself and states his over the eyebrow. Objective Vitals Vital Signs Date Time Temp Pulse Resp B/P (MAP) Pulse Ox O2 Delivery O2 Flow Rate FiO2 08/25/17 11:33 97.9 86 18 104/65 (78) 96 08/25/17 08:00 Room Air 08/25/17 07:39 97.7 82 18 102/57 (72) 97 08/25/17 03:47 97.3 85 15 101/57 (72) 94 08/25/17 00:00 96.1 83 15 98/52 (67) 92 08/24/17 20:40 97.8 85 18 96/52 (67) 98 08/24/17 16:00 98.5 87 18 84/46 (59) 97 I/O 08/24/17 08/24/17 08/24/17 08/25/17 08/25/17 08/25/17 07:00 15:00 23:00 07:00 15:00 23:00 Intake Total 773 ml 1610 ml 240 ml Output Total 4800 ml 450 ml Balance 773 ml -3190 ml -210 ml Intake Oral 1610 ml 240 ml IV Total 773 ml Output Urine Total 4800 ml 450 ml # Bowel Movements 0 0 Result Diagram: 08/25/17 0434 08/25/17 0434 Objective Remarks Awake, alert, no acute distress. Sitting almost upright eating lunch at this time Nonlabored respirations Bilateral lower extremities: 5 out of 5 strength throughout hip flexors, quads, hamstrings, tib ant, gastrocs, EHL and FHL. Sensation intact. Does complain of some radicular type pain posterior leg. Brisk cap refill Assessment & Plan Assessment and Plan 72-year-old man now postop day 3 status post revision bilateral L3 4, L4 5 and L5-S1 laminectomies. Concern for purulence Intra-Op and therefore hardware placement was aborted and only decompression performed. Small intraoperative dural leak. 1. Head of bed has been flat for over 48 hours. Started head of bed trials this morning and appears to be tolerating very well. Patient is almost sitting upright currently. We will plan to continue to advance head of bed and start mobilizing out of bed tomorrow. 2. No chemical anticoagulation. DVT prophylaxis with SCDs/MONTSERRAT hose 3. Intraoperative cultures show Staphylococcus Lugadensis. Appreciate ID assistance. Given positive cultures, I will not be able to place hardware in the next several weeks. I discussed with the patient that it will likely be at least 2-3 months before we are able to place hardware. He will require brace when he is out of bed. He will require likely 6-8 weeks of IV antibiotics prior to any type of consideration for hardware placement. 4. Hemoglobin is approximately 8.3 currently. Patient remains asymptomatic. We will monitor. She discontinued decline or patient become symptomatic, would consider transfusing. Patient is typically a little anemic as he had a large GI bleed in June and started at less than 10 preoperatively. 5. I will ask that fully be removed later today as patient continues to tolerate head of bed trials. 6. I will ask medicine to evaluate the patient for his left eyebrow swelling and pain. This started prior to surgery and therefore is not likely to be related to positioning. Patient denies any change in vision or pain around the eye itself. 7. I expect patient will require placement given he has significant mobilization issues prior to surgery. He has minimal assistance with only his at home he was not able to help him get out of bed or mobilize. Jessica Stubbs MD Aug 25, 2017 12:49
[2017-08-25] MEDS ORDERED: CIPROFLOXACIN 0.3% OPTH OINT 3.5 GM TUBO RIGHT EYE SCH (14:00)
[2017-08-25] MEDS ORDERED: CIPROFLOXACIN 0.3% OPTH OINT 3.5 GM TUBO LEFT EYE SCH (14:00)
[2017-08-25] MEDS: VANCOMYCIN INJ 2,000 MG in SODIUM CHLORID 0.9% 500 ML INJ 500 ML IV SCH (14:11)
--- NOTE | 2017-08-25 14:37 | HHI.IDPN ---
Subjective Subjective Remarks is a 72 y/o CM who underwent bilateral hemilaminectomies at L3-S1 in February of 2017. Patient reports this is his 4th surgery but he has had no hardware to date. He reports he initially had significant improvement in his radicular symptoms, however, he developed a large fluid collection requiring drainage in March. Subsequently, he developed recurrent symptoms and early May with imaging demonstrating a recurrent disc herniation requiring revision bilateral hemilaminectomies at L3-L5 by Dr. Beaulieu. Postoperatively , he had significant improvement in his symptoms for only 2 weeks with recurrent radiculopathy and neurogenic medications symptoms. Repeat imaging at the beginning of July demonstrated a recurrent disc herniation at L4-5 along with significant central and foraminal stenosis at L3-4 and foraminal stenosis at L5-S1. Options of management were discussed with the patient. Summary of his surgeries in 2017 to date: 03/06/2017: L3-S1 bilateral hemilaminectomy, foraminotomy, partial facetectomy, decompression of nerve roots 04/17/2017: L-spine incision and drainage, drainage of seroma. Cultures intraoperatively with no growth. No antibiotics appear to be have prescribed on discharge. 06/21/2017: L3-L5 bilateral decompression, hemilaminectomy, foraminotomy, partial facetectomy, decompression with reexploration 08/23/2017: Right revision laminectomies with partial facetectomies L3-4, L4-5 and L5-S1, Left revision laminectomies with partial facetectomies L3-4, L4-5 and L5-S1, Incision and drainage lumbar abscess. Intraop cultures positive for Coag neg staph. Pertinent positives and negatives: denies B/B incontinence denies fever, chills or night sweats Reports anorexia and weight loss. Has perineal sensation. Defers rectal exam due to significant pain. No paresthesias or focal neuro deficit in LEs. Infectious disease is consulted for evaluation and management of coag-negative staphylococcus lumbar abscess possible osteomyelitis. ROS - General Review of Systems Constitutional: DENIES: Diaphoretic episodes, Fatigue, Fever, Weight gain, Weight loss, Chills, Dizziness, Change in appetite, Night Sweats Endocrine: DENIES: Heat/cold intolerance, Polydipsia, Polyuria, Polyphagia Eyes: DENIES: Blurred vision, Diplopia, Eye inflammation, Eye pain, Vision loss , Photosensitivity, Double Vision Ears, nose, mouth, throat: DENIES: Tinnitus, Hearing loss, Vertigo, Nasal discharge, Oral lesions, Throat pain, Hoarseness, Ear Pain, Running Nose, Epistaxis, Sinus Pain, Toothache, Odynophagia Respiratory: DENIES: Apneas, Cough, Snoring, Wheezing, Hemoptysis, Sputum production, Shortness of breath Cardiovascular: DENIES: Chest pain, Palpitations, Syncope, Dyspnea on Exertion , PND, Lower Extremity Edema, Orthopnea, Claudication Gastrointestinal: COMPLAINS OF: Constipation, DENIES: Abdominal pain, Black stools, Bloody stools, Diarrhea, Nausea, Vomiting, Difficulty Swallowing, Anorexia Genitourinary: DENIES: Sexual dysfunction, Urinary frequency, Urinary incontinence, Urgency, Hematuria, Dysuria, Nocturia, Penile Discharge, Testicular Pain, Testicular Swelling Musculoskeletal: COMPLAINS OF: Stiffness, Back pain, DENIES: Joint pain, Muscle aches, Joint Swelling, Neck pain Integumentary: DENIES: Abnormal pigmentation, Nail changes, Pruritus, Rash Hematologic/lymphatic: DENIES: Bruising, Lymphadenopathy Immunologic/allergic: DENIES: Eczema, Urticaria Neurologic: DENIES: Abnormal gait, Headache, Localized weakness, Paresthesias, Seizures, Speech Problems, Tremor, Poor Balance Psychiatric: DENIES: Anxiety, Confusion, Mood changes, Depression, Hallucinations, Agitation, Suicidal Ideation, Homicidal Ideation, Delusions Except as stated in HPI: all other systems reviewed are Neg PFSH Past Family Social History Allergies: Coded Allergies: No Known Allergies (Verified Allergy, Unknown, 08/22/17) Past Medical History Gastric ulcers Right renal mass Hyperglycemia Gout Osteoarthritis of the hip Hypertension Spinal stenosis since 2014 status post multiple surgeries Impotence Idiopathic peripheral neuropathy Obesity Past Surgical History 03/06/2017: L3-S1 bilateral hemilaminectomy, foraminotomy, partial facetectomy, decompression of nerve roots 04/17/2017: L-spine incision and drainage, drainage of seroma. Cultures intraoperatively with no growth. No antibiotics appear to be have prescribed on discharge. 06/21/2017: L3-L5 bilateral decompression, hemilaminectomy, foraminotomy, partial facetectomy, decompression with reexploration 08/23/2017: Right revision laminectomies with partial facetectomies L3-4, L4-5 and L5-S1, Left revision laminectomies with partial facetectomies L3-4, L4-5 and L5-S1, Incision and drainage lumbar abscess. Intraop cultures positive for Coag neg staph. Bilateral hernia repair EGD Colonoscopy Overnight events reviewed Complains of left eye irritation No fever No rash No diarrhea off pain pump on oral pain meds. Antibiotics Vanco IV Lines Line sites with no e.o infection Past Medical History Gastric ulcers Right renal mass Hyperglycemia Gout Osteoarthritis of the hip Hypertension Spinal stenosis since 2014 status post multiple surgeries Impotence Idiopathic peripheral neuropathy Obesity Past Surgical History 03/06/2017: L3-S1 bilateral hemilaminectomy, foraminotomy, partial facetectomy, decompression of nerve roots 04/17/2017: L-spine incision and drainage, drainage of seroma. Cultures intraoperatively with no growth. No antibiotics appear to be have prescribed on discharge. 06/21/2017: L3-L5 bilateral decompression, hemilaminectomy, foraminotomy, partial facetectomy, decompression with reexploration 08/23/2017: Right revision laminectomies with partial facetectomies L3-4, L4-5 and L5-S1, Left revision laminectomies with partial facetectomies L3-4, L4-5 and L5-S1, Incision and drainage lumbar abscess. Intraop cultures positive for Coag neg staph. Bilateral hernia repair EGD Colonoscopy Allergies: Coded Allergies: No Known Allergies (Verified Allergy, Unknown, 08/22/17) Objective . Vital Signs Date Time Temp Pulse Resp B/P (MAP) Pulse Ox O2 Delivery O2 Flow Rate FiO2 08/25/17 11:33 97.9 86 18 104/65 (78) 96 08/25/17 08:00 Room Air 08/25/17 07:39 97.7 82 18 102/57 (72) 97 08/25/17 03:47 97.3 85 15 101/57 (72) 94 08/25/17 00:00 96.1 83 15 98/52 (67) 92 08/24/17 20:40 97.8 85 18 96/52 (67) 98 08/24/17 16:00 98.5 87 18 84/46 (59) 97 . Laboratory Tests Test 08/24/17 04:10 08/25/17 04:34 White Blood Count 8.6 TH/MM3 9.4 TH/MM3 Red Blood Count 2.83 MIL/MM3 2.76 MIL/MM3 Hemoglobin 8.7 GM/DL 8.3 GM/DL Hematocrit 25.3 % 24.4 % Mean Corpuscular Volume 89.3 FL 88.3 FL Mean Corpuscular Hemoglobin 30.6 PG 30.1 PG Mean Corpuscular Hemoglobin Concent 34.3 % 34.1 % Red Cell Distribution Width 17.4 % 17.5 % Platelet Count 244 TH/MM3 216 TH/MM3 Mean Platelet Volume 8.1 FL 7.9 FL Neutrophils (%) (Auto) 61.0 % 65.0 % Lymphocytes (%) (Auto) 24.7 % 20.8 % Monocytes (%) (Auto) 12.8 % 11.7 % Eosinophils (%) (Auto) 0.8 % 2.0 % Basophils (%) (Auto) 0.7 % 0.5 % Neutrophils # (Auto) 5.2 TH/MM3 6.1 TH/MM3 Lymphocytes # (Auto) 2.1 TH/MM3 2.0 TH/MM3 Monocytes # (Auto) 1.1 TH/MM3 1.1 TH/MM3 Eosinophils # (Auto) 0.1 TH/MM3 0.2 TH/MM3 Basophils # (Auto) 0.1 TH/MM3 0.1 TH/MM3 CBC Comment DIFF FINAL DIFF FINAL Differential Comment Erythrocyte Sedimentation Rate 83 mm/hr Laboratory Tests Test 08/24/17 04:10 08/25/17 04:34 Creatinine 0.47 MG/DL 1.16 MG/DL Estimat Glomerular Filtration Rate 177 ML/MIN 62 ML/MIN Blood Urea Nitrogen 13 MG/DL Random Glucose 118 MG/DL Total Protein 5.4 GM/DL Albumin 2.1 GM/DL Calcium Level 7.8 MG/DL Alkaline Phosphatase 92 U/L Aspartate Amino Transf (AST/SGOT) 18 U/L Alanine Aminotransferase (ALT/SGPT) 13 U/L Total Bilirubin 0.7 MG/DL Sodium Level 138 MEQ/L Potassium Level 3.8 MEQ/L Chloride Level 106 MEQ/L Carbon Dioxide Level 22.2 MEQ/L Anion Gap 10 MEQ/L Physical Exam GENERAL: This is a well-nourished, well-developed patient, in no apparent distress. SKIN: No rashes, ecchymoses or lesions. Cool and dry. HEAD: Atraumatic. Normocephalic. No temporal or scalp tenderness. EYES: Pupils equal round and reactive. Extraocular motions intact. No scleral icterus. No injection or drainage. ENT: Nose without bleeding, purulent drainage or septal hematoma. Throat without erythema, tonsillar hypertrophy or exudate. Uvula midline. Airway patent. NECK: Trachea midline. Supple, nontender, no meningeal signs. CARDIOVASCULAR: Regular rate and rhythm without murmurs, gallops, or rubs. RESPIRATORY: Clear to auscultation. Breath sounds equal bilaterally. No wheezes , rales, or rhonchi. GASTROINTESTINAL: Abdomen soft, non-tender, nondistended. MUSCULOSKELETAL: Extremities without clubbing, cyanosis, or edema. No joint tenderness, effusion, or edema noted. No calf tenderness. Negative Homans sign bilaterally. Wiggles his toes. Surgical site ok. NEUROLOGICAL: Awake and alert. Non focal exam. Psych cooperative IV line sites with no e.o infection. 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 No hardware in place. Coag neg staph spinal abscess. Staph Lugdenensis spinal abscess Lumbar stenosis with radiculopathy with significant pain. Multiple spinal surgeries in 2017. Left eyebrow cellulitis/conjunctivitis Recs: Continue Vanco IV(target 15-20). Start Cipro gtt. Follow intraop cultures. Follow clinically. Once cultures final will provide final DC regimen. will need rehab placement. PICC line consult. d/w Marla Laguna MD Aug 25, 2017 14:37
[2017-08-25] MEDS: CIPROFLOXACIN 0.3% OPTH OINT 3.5 GM TUBO EACH EYE SCH ×2 (16:03→21:49)
[2017-08-25] MEDS: SODIUM CHLOR 0.9% 1000 ML INJ 1,000 ML IV SCH ×2 (16:10→17:29)
[2017-08-25 18:10] VITALS: BP 110/75
[2017-08-25 20:00] VITALS: BP 97/60; PULSE 89; RESP 18; TEMP 98.3; O2SAT 96
[2017-08-25] MEDS: MAGNESIUM HYDROXIDE SUSP 30 ML CUP PO SCH (21:48)
[2017-08-26] VITALS: BP 99/60; PULSE 85; RESP 18; TEMP 98.1; O2SAT 97
[2017-08-26] MEDS: SODIUM CHLOR 0.9% 1000 ML INJ 1,000 ML IV SCH ×3 (01:30→17:17)
[2017-08-26 04:00] VITALS: BP 99/59; PULSE 87; RESP 18; TEMP 97.6; O2SAT 95
[2017-08-26] MEDS: ACETAMINOPHEN/HYDROcodone 325 MG/10 MG TAB PO PRN ×5 (05:17→22:44)
[2017-08-26] MEDS: CIPROFLOXACIN 0.3% OPTH OINT 3.5 GM TUBO EACH EYE SCH ×3 (05:18→21:46)
--- NOTE | 2017-08-26 06:25 | PD.ORT.PN ---
Subjective Subjective Remarks POD 5 s/p L3-S1 Laminectomy patient on bedrest. doing well. pain controlled. reports weakness and inability to walk . awaiting culture results. Objective Vitals Vital Signs Date Time Temp Pulse Resp B/P (MAP) Pulse Ox O2 Delivery O2 Flow Rate FiO2 08/26/17 04:00 97.6 87 18 99/59 (72) 95 08/26/17 00:00 98.1 85 18 99/60 (73) 97 08/25/17 20:00 98.3 89 18 97/60 (72) 96 08/25/17 18:10 110/75 (87) 08/25/17 11:33 97.9 86 18 104/65 (78) 96 08/25/17 08:00 Room Air 08/25/17 07:39 97.7 82 18 102/57 (72) 97 I/O 08/25/17 08/25/17 08/25/17 08/26/17 08/26/17 08/26/17 07:00 15:00 23:00 07:00 15:00 23:00 Intake Total 1000 ml 240 ml Output Total 1825 ml 350 ml Balance -825 ml -110 ml Intake Oral 480 ml 240 ml IV Total 520 ml Output Urine Total 1825 ml 350 ml # Bowel Movements 0 0 Result Diagram: 08/25/17 0434 08/25/17 0434 Objective Remarks Awake, alert, no acute distress. Sitting almost upright eating lunch at this time Nonlabored respirations Bilateral lower extremities: 5 out of 5 strength throughout hip flexors, quads, hamstrings, tib ant, gastrocs, EHL and FHL. Sensation intact. Does complain of some radicular type pain posterior leg. Brisk cap refill Assessment & Plan Assessment and Plan 72-year-old man now postop day 3 status post revision bilateral L3 4, L4 5 and L5-S1 laminectomies. Concern for purulence Intra-Op and therefore hardware placement was aborted and only decompression performed. Small intraoperative dural leak. 1. Head of bed has been flat for over 48 hours. Started head of bed trials this morning and appears to be tolerating very well. Patient is almost sitting upright currently. We will plan to continue to advance head of bed and start mobilizing out of bed tomorrow. 2. No chemical anticoagulation. DVT prophylaxis with SCDs/MONTSERRAT hose 3. Intraoperative cultures show Staphylococcus Lugadensis. Appreciate ID assistance. Given positive cultures, I will not be able to place hardware in the next several weeks. I discussed with the patient that it will likely be at least 2-3 months before we are able to place hardware. He will require brace when he is out of bed. He will require likely 6-8 weeks of IV antibiotics prior to any type of consideration for hardware placement. 4. Hemoglobin is approximately 8.3 currently. Patient remains asymptomatic. We will monitor. She discontinued decline or patient become symptomatic, would consider transfusing. Patient is typically a little anemic as he had a large GI bleed in June and started at less than 10 preoperatively. 5. I will ask that fully be removed later today as patient continues to tolerate head of bed trials. 6. I will ask medicine to evaluate the patient for his left eyebrow swelling and pain. This started prior to surgery and therefore is not likely to be related to positioning. Patient denies any change in vision or pain around the eye itself. 7. I expect patient will require placement given he has significant mobilization issues prior to surgery. He has minimal assistance with only his at home he was not able to help him get out of bed or mobilize. -plan for DC to rehab monday _-IV Abx per infectious dz Yousif Adam/First Mary Ann GARZA Aug 26, 2017 06:25
[2017-08-26 07:46] VITALS: BP 101/59; PULSE 89; RESP 19; TEMP 98.1; O2SAT 96
[2017-08-26 08:39] LABS: CREATININE 1.97 MG/DL (0.60-1.30)
[2017-08-26] MEDS: MULTIVITAMIN TAB PO SCH (08:53)
[2017-08-26] MEDS: VANCOMYCIN INJ 2,000 MG in SODIUM CHLORID 0.9% 500 ML INJ 500 ML IV SCH (08:53)
[2017-08-26] MEDS: DOCUSATE SODIUM 100 MG CAP PO SCH ×2 (08:53→21:35)
[2017-08-26] MEDS: PANTOPRAZOLE SOD 20 MG DELAYED RELEASE TAB PO SCH (08:53)
[2017-08-26] MEDS: GABAPENTIN 400 MG CAP PO SCH (08:54)
[2017-08-26] MEDS: ALLOPURINOL 300 MG TAB PO SCH (08:54)
[2017-08-26] MEDS: SODIUM CHLORIDE 0.9% FLUSH 10 ML FLUSH IV FLUSH SCH ×2 (08:55→21:36)
[2017-08-26] MEDS: MAGNESIUM HYDROXIDE SUSP 30 ML CUP PO SCH ×2 (08:55→21:36)
[2017-08-26] MEDS ORDERED: MIDODRINE 5 MG TAB PO PRN (09:00)
[2017-08-26] MEDS: FUROSEMIDE 20 MG TAB PO SCH ×2 (09:00→21:36)
[2017-08-26] MEDS: LISINOPRIL 10 MG TAB PO SCH (09:00)
[2017-08-26] MEDS: CARVEDILOL 6.25 MG TAB PO SCH ×2 (09:00→21:35)
[2017-08-26] MEDS: TRIAMTERENE/HCTZ 37.5 MG/25 MG CAP PO SCH ×2 (09:00→21:36)
[2017-08-26 11:52] VITALS: BP 97/54; PULSE 95; RESP 19; TEMP 96.7; O2SAT 97
[2017-08-26 15:51] VITALS: BP 98/60; PULSE 91; RESP 19; TEMP 97.4; O2SAT 97
--- NOTE | 2017-08-26 17:35 | PD.CONS ---
HPI Service [facility] Consult Requested By Primary Care Physician Jina Turner M.D. Diagnoses: History of Present Illness Mr. Do is a 72-year-old male. He is here for a planned lumbar fusion but upon attempted surgery signs of infection were noticed and surgery was called off. She had transient hypotension we're consulted in this regard. Other than chronic back pain and hypertension patient has no reported medical problems. He 's had 3 back surgeries preceding attempt at back surgery today. She also has a history of surgical repair of a duodenal ulcer and tonsillectomy. She has not been having any fever or chills. No acute complaints other than back pain when seen. Hypotension has improved. Review of Systems Constitutional: DENIES: Fever, Chills, Night Sweats Eyes: DENIES: Blurred vision, Diplopia, Eye inflammation, Eye pain Ears, nose, mouth, throat: DENIES: Tinnitus, Hearing loss, Nasal discharge Respiratory: DENIES: Cough, Wheezing, Shortness of breath Cardiovascular: DENIES: Chest pain, Palpitations, Syncope, Dyspnea on Exertion Gastrointestinal: DENIES: Abdominal pain, Black stools, Bloody stools Musculoskeletal: COMPLAINS OF: Back pain, DENIES: Joint pain, Muscle aches, Stiffness Integumentary: DENIES: Abnormal pigmentation, Nail changes, Pruritus, Rash Hematologic/lymphatic: DENIES: Bruising, Lymphadenopathy Immunologic/allergic: DENIES: Eczema, Urticaria Neurologic: DENIES: Abnormal gait, Headache, Paresthesias Psychiatric: DENIES: Anxiety, Confusion, Hallucinations Past Family Social History Allergies: Coded Allergies: No Known Allergies (Verified Allergy, Unknown, 08/22/17) Past Medical History Back pain Hypertension Osteoarthritis Past Surgical History 3 back surgeries Duodenal ulcer repair Tonsillectomy Reported Medications Reported Meds & Active Scripts Active Reported Flexeril (Cyclobenzaprine HCl) 5 Mg Tab Unknown Dose PO HS Hydrocodone-Acetaminophen 10-325 mg Tab 1 Tab PO Q6H PRN Triamterene-Hydrochlorothiazide 37.5-25 Mg Cap 1 Cap PO BID Gabapentin 400 Mg Cap 400 Cap PO TID Meloxicam 15 Mg Tab 15 Mg PO DAILY Furosemide 20 Mg Tab 20 Mg PO BID Potassium Chloride ER (Potassium Chloride) 10 Meq Cap 10 Meq PO BID Protonix (Pantoprazole Sodium) 40 Mg Tab 20 Mg PO DAILY Multi-Vitamin Daily (Multiple Vitamin) 1 Tab Tab 1 Tab PO DAILY Lisinopril 10 Mg Tab 10 Mg PO DAILY Carvedilol 6.25 Mg Tab 6.25 Mg PO BID Allopurinol 300 Mg Tab 300 Mg PO DAILY Active Ordered Medications Administered Medications Medications (Trade) Dose Ordered Sig/Samia Route PRN Reason Start Time Stop Time Status Last Admin Dose Admin Sodium Chloride (NS Flush) 2 ml BID IV FLUSH 08/22/17 21:00 08/26/17 08:55 Docusate Sodium (Colace) 100 mg BID PO 08/23/17 21:00 08/26/17 08:53 Bisacodyl (Dulcolax Supp) 10 mg DAILY PRN RECTAL CONSTIPATION 08/22/17 17:00 08/26/17 08:56 Sodium Chloride 1,000 ml @ 125 mls/hr Q8H IV 08/22/17 17:30 08/26/17 09:30 Allopurinol (Zyloprim) 300 mg DAILY PO 08/23/17 09:00 08/26/17 08:54 Carvedilol (Coreg) 6.25 mg BID PO 08/23/17 09:00 08/25/17 08:45 Furosemide (Lasix) 20 mg BID PO 08/23/17 09:00 08/25/17 08:45 Lisinopril (Prinivil) 10 mg DAILY PO 08/23/17 09:00 08/25/17 08:46 Pantoprazole Sodium (Protonix) 20 mg DAILY PO 08/23/17 09:00 08/26/17 08:53 Triamterene/HCTZ (Dyazide 37.5-25 Mg) 1 cap BID PO 08/23/17 09:00 08/25/17 08:46 Multivitamins (Theragran) 1 tab DAILY PO 08/23/17 09:00 08/26/17 08:53 Acetaminophen/ Hydrocodone Bitart (Macon 10-325 Mg) 1 tab Q4H PRN PO PAIN SCALE 4 TO 7 08/24/17 08:00 08/26/17 13:27 Vancomycin HCl 2000 mg/Sodium Chloride 520 ml @ 250 mls/hr Q18H IV 08/25/17 15:00 Future Hold 08/26/17 08:53 Ciprofloxacin (Ciloxan 0.3% Opth Oint) 1 applic Q8HR EACH EYE 1/26/18 16:00 08/26/17 13:28 Magnesium Hydroxide (Milk Of Inocencio Alejandre) 30 ml Q12HR PO 08/25/17 21:00 08/26/17 08:55 Family History Osteoarthritis in aunt Suicide in father Social History No history of smoking No history of illicit drug abuse Occasional alcohol use Physical Exam Vital Signs Vital Signs Date Time Temp Pulse Resp B/P (MAP) Pulse Ox O2 Delivery O2 Flow Rate FiO2 08/26/17 15:51 97.4 91 19 98/60 (73) 97 08/26/17 11:52 96.7 95 19 97/54 (68) 97 08/26/17 09:31 Room Air 08/26/17 07:46 98.1 89 19 101/59 (73) 96 08/26/17 04:00 97.6 87 18 99/59 (72) 95 08/26/17 00:00 98.1 85 18 99/60 (73) 97 08/25/17 20:00 98.3 89 18 97/60 (72) 96 08/25/17 18:10 110/75 (87) Physical Exam GENERAL: NAD, A&Ox3 HEAD: Normocephalic. NECK: Supple, trachea midline. No lymphadenopathy. EYES: No scleral icterus. No injection or drainage. CARDIOVASCULAR: Regular rate and rhythm without murmurs, gallops, or rubs. RESPIRATORY: Breath sounds equal bilaterally. No accessory muscle use. GASTROINTESTINAL: Abdomen soft, non-tender, nondistended. MUSCULOSKELETAL: No cyanosis, or edema. Decreased range of motion due to back pain. SKIN: Warm and dry. NEURO: No focal neurological deficitis. Laboratory Laboratory Tests Test 08/26/17 07:05 Creatinine 1.97 Estimat Glomerular Filtration Rate 34 Date/Time Source Procedure Growth Status 08/22/17 11:23 Wound Back Fungal Smear - Final NO FUNGAL ELEMENTS SEEN. Resulted 08/22/17 11:23 Wound Back Fungal Culture Pending Resulted Result Diagram: 08/25/17 0434 08/26/17 0705 Assessment and Plan Problem List: (1) Lumbar post-laminectomy syndrome ICD Code: M96.1 - Postlaminectomy syndrome, not elsewhere classified (2) Lumbar spinal stenosis ICD Code: M48.061 - Spinal stenosis, lumbar region without neurogenic claudication (3) HTN (hypertension) ICD Code: I10 - Essential (primary) hypertension (4) History of gout ICD Code: Z87.39 - Personal history of other diseases of the musculoskeletal system and connective tissue (5) S/P lumbar laminectomy ICD Code: Z98.890 - Other specified postprocedural states Assessment and Plan 72-year-old male admitted secondary to attempt a lumbar fusion with possible spinal infection, consult for hypotension. Hypotension History of hypertension Resolved for now Follow blood pressures Parameters placed on lisinopril and triamterene/hydrochlorothiazide Midodrine provided for any recurrence of hypotension on an as-needed basis Continue Coreg Possible spinal infection No acute signs of infection clinically or by history Possible colonization or chronic infection Follow cultures Surgeons following Gout Continue allopurinol DVT prophylaxis Anticoagulation at discretion of surgeon Gage Burris MD Aug 26, 2017 17:35
[2017-08-26] MEDS: CYCLOBENZAPRINE HCL 10 MG TAB PO PRN (17:49)
[2017-08-26 20:00] VITALS: BP 117/61; PULSE 85; RESP 18; TEMP 97.4; O2SAT 96
[2017-08-26] MEDS: ONDANSETRON HCL 4 MG/2 ML VIAL IV PUSH PRN (22:43)
[2017-08-27] VITALS: BP 123/58; PULSE 86; RESP 18; TEMP 98.9; O2SAT 100
[2017-08-27] MEDS: SODIUM CHLOR 0.9% 1000 ML INJ 1,000 ML IV SCH ×3 (01:30→17:30)
[2017-08-27] MEDS ORDERED: PHARMACY ORDERED LAB ONE (02:45)
[2017-08-27] MEDS: ACETAMINOPHEN/HYDROcodone 325 MG/10 MG TAB PO PRN ×5 (03:03→23:25)
[2017-08-27 04:00] VITALS: BP 104/66; PULSE 84; RESP 16; TEMP 97.6; O2SAT 96
[2017-08-27] MEDS: CIPROFLOXACIN 0.3% OPTH OINT 3.5 GM TUBO EACH EYE SCH ×3 (06:09→20:19)
[2017-08-27 06:58] LABS: AUTOMATED NEUTROPHIL # 6.5 TH/MM3 (1.8-7.7); BASOPHIL % 0.4 % (0.0-2.0); EOSINOPHIL # 0.3 TH/MM3 (0-0.4); EOSINOPHIL % 2.7 % (0.0-4.0); HEMATOCRIT 22.6 % (39.0-51.0); HEMOGLOBIN 7.7 GM/DL (13.0-17.0); LYMPH % 17.3 % (9.0-44.0); LYMPHOCYTE # 1.6 TH/MM3 (1.0-4.8); MEAN CELL VOLUME 89.7 FL (80.0-100.0); MEAN CORPUSCULAR HEMOGLOBIN 30.4 PG (27.0-34.0); MEAN CORPUSCULAR HGB CONC 33.9 % (32.0-36.0); MEAN PLATELET VOLUME 8.6 FL (7.0-11.0); MONO % 9.2 % (0.0-8.0); MONOCYTE # 0.9 TH/MM3 (0-0.9); NEUT % 70.4 % (16.0-70.0); PLATELET COUNT 252 TH/MM3 (150-450); RED BLOOD COUNT 2.52 MIL/MM3 (4.50-5.90); RED CELL DISTRIBUTION WIDTH 17.3 % (11.6-17.2); WHITE BLOOD COUNT 9.2 TH/MM3 (4.0-11.0)
--- NOTE | 2017-08-27 06:59 | PD.ORT.PN ---
Subjective Subjective Remarks POD 6 s/p L3-S1 Laminectomy patient on bedrest. doing well. pain controlled. reports weakness and inability to walk . awaiting culture results. Objective Vitals Vital Signs Date Time Temp Pulse Resp B/P (MAP) Pulse Ox O2 Delivery O2 Flow Rate FiO2 08/27/17 04:00 97.6 84 16 104/66 (79) 96 08/27/17 00:00 98.9 86 18 123/58 (79) 100 08/26/17 20:00 97.4 85 18 117/61 (79) 96 08/26/17 15:51 97.4 91 19 98/60 (73) 97 08/26/17 11:52 96.7 95 19 97/54 (68) 97 08/26/17 09:31 Room Air 08/26/17 07:46 98.1 89 19 101/59 (73) 96 I/O 08/26/17 08/26/17 08/26/17 08/27/17 08/27/17 08/27/17 06:59 14:59 22:59 06:59 14:59 22:59 Intake Total 240 ml 850 ml 240 ml 480 ml Output Total 350 ml 450 ml 400 ml 650 ml Balance -110 ml 400 ml -160 ml -170 ml Intake Oral 240 ml 850 ml 240 ml 480 ml Output Urine Total 350 ml 450 ml 400 ml 650 ml # Bowel Movements 0 1 0 0 Result Diagram: 08/25/17 0434 08/26/17 0705 Objective Remarks Awake, alert, no acute distress. Sitting almost upright eating lunch at this time Nonlabored respirations Bilateral lower extremities: 5 out of 5 strength throughout hip flexors, quads, hamstrings, tib ant, gastrocs, EHL and FHL. Sensation intact. Does complain of some radicular type pain posterior leg. Brisk cap refill Assessment & Plan Assessment and Plan 72-year-old man now postop day 6 status post revision bilateral L3 4, L4 5 and L5-S1 laminectomies. Concern for purulence Intra-Op and therefore hardware placement was aborted and only decompression performed. Small intraoperative dural leak. 1. Head of bed has been flat for over 48 hours. Started head of bed trials this morning and appears to be tolerating very well. Patient is almost sitting upright currently. We will plan to continue to advance head of bed and start mobilizing out of bed tomorrow. 2. No chemical anticoagulation. DVT prophylaxis with SCDs/MONTSERRAT hose 3. Intraoperative cultures show Staphylococcus Lugadensis. Appreciate ID assistance. Given positive cultures, I will not be able to place hardware in the next several weeks. I discussed with the patient that it will likely be at least 2-3 months before we are able to place hardware. He will require brace when he is out of bed. He will require likely 6-8 weeks of IV antibiotics prior to any type of consideration for hardware placement. 4. Hemoglobin is approximately 8.3 currently. Patient remains asymptomatic. We will monitor. She discontinued decline or patient become symptomatic, would consider transfusing. Patient is typically a little anemic as he had a large GI bleed in June and started at less than 10 preoperatively. 5. I will ask that fully be removed later today as patient continues to tolerate head of bed trials. 6. I will ask medicine to evaluate the patient for his left eyebrow swelling and pain. This started prior to surgery and therefore is not likely to be related to positioning. Patient denies any change in vision or pain around the eye itself. 7. I expect patient will require placement given he has significant mobilization issues prior to surgery. He has minimal assistance with only his at home he was not able to help him get out of bed or mobilize. -plan for DC to rehab monday -IV Abx per infectious dz -restart home dose of gabapentin. 400mg TID. Yousif Adam/First Mary Ann GARZA Aug 27, 2017 06:59
[2017-08-27 07:31] LABS: ALBUMIN 1.9 GM/DL (3.4-5.0); ALKALINE PHOSPHATASE 84 U/L (45-117); ALT (GPT) 12 U/L (12-78); AST (GOT) 15 U/L (15-37); BLOOD UREA NITROGEN 26 MG/DL (7-18); CHLORIDE 108 MEQ/L (98-107); CREATININE 2.39 MG/DL (0.60-1.30); GLOMERULAR FILTRATION RATE 27 ML/MIN (>89); GLUCOSE,RANDOM 93 MG/DL (74-106); SODIUM (NA) 138 MEQ/L (136-145); TOTAL BILIRUBIN ADULT 0.5 MG/DL (0.2-1.0); TOTAL PROTEIN 5.2 GM/DL (6.4-8.2)
[2017-08-27 08:00] VITALS: BP 97/62; PULSE 80; RESP 18; TEMP 98; O2SAT 97
[2017-08-27] MEDS: ALLOPURINOL 300 MG TAB PO SCH (08:48)
[2017-08-27] MEDS: GABAPENTIN 400 MG CAP PO SCH ×3 (08:48→18:20)
[2017-08-27] MEDS: DOCUSATE SODIUM 100 MG CAP PO SCH ×2 (08:49→20:18)
[2017-08-27] MEDS: SODIUM CHLORIDE 0.9% FLUSH 10 ML FLUSH IV FLUSH SCH ×2 (08:49→20:19)
[2017-08-27] MEDS: PANTOPRAZOLE SOD 20 MG DELAYED RELEASE TAB PO SCH (08:49)
[2017-08-27] MEDS: CARVEDILOL 6.25 MG TAB PO SCH ×2 (08:50→20:18)
[2017-08-27] MEDS: MAGNESIUM HYDROXIDE SUSP 30 ML CUP PO SCH ×2 (08:51→20:19)
[2017-08-27] MEDS: LISINOPRIL 10 MG TAB PO SCH (08:51)
[2017-08-27] MEDS: MULTIVITAMIN TAB PO SCH (08:52)
[2017-08-27] MEDS: TRIAMTERENE/HCTZ 37.5 MG/25 MG CAP PO SCH (08:52)
[2017-08-27] MEDS: FUROSEMIDE 20 MG TAB PO SCH (08:52)
[2017-08-27 12:00] VITALS: BP 98/56; PULSE 73; RESP 17; TEMP 97.1; O2SAT 98
--- NOTE | 2017-08-27 13:57 | RADRPT ---
EXAM DATE/TIME: 08/27/2017 13:32 [facility] COMPARISON: No previous studies available for comparison. INDICATIONS : Evaluate PICC line placement MEDICAL HISTORY : Hypertension. SURGICAL HISTORY : L4-L5 laminectomy and excision of seroma. ENCOUNTER: Initial ACUITY: 1 day PAIN SCORE: 0/10 LOCATION: chest FINDINGS: Single AP view of the chest. Left-sided PICC line is in place with the tip at the cavoatrial junction . Lung volumes are low. Lungs are grossly clear. No evidence of pleural effusion or pneumothorax. CONCLUSION: Left-sided PICC line tip at the cavoatrial junction. Maicol Sandoval MD on August 27, 2017 at 13:54 Board Certified Radiologist. This report was verified electronically.
[2017-08-27] MEDS: DAPTOmycin INJ 1,000 MG in SODIUM CHLORIDE 0.9% INJ 100 ML IV SCH (14:18)
[2017-08-27] MEDS: CYCLOBENZAPRINE HCL 10 MG TAB PO PRN (14:21)
--- NOTE | 2017-08-27 15:39 | HHI.IDPN ---
Note Infectious Disease Note ID coverage: is a 72 y/o CM who underwent bilateral hemilaminectomies at L3-S1 in February of 2017. Patient reports this is his 4th surgery but he has had no hardware to date. He reports he initially had significant improvement in his radicular symptoms, however, he developed a large fluid collection requiring drainage in March. Subsequently, he developed recurrent symptoms and early May with imaging demonstrating a recurrent disc herniation requiring revision bilateral hemilaminectomies at L3-L5 by Dr. Beaulieu. Postoperatively , he had significant improvement in his symptoms for only 2 weeks with recurrent radiculopathy and neurogenic medications symptoms. Repeat imaging at the beginning of July demonstrated a recurrent disc herniation at L4-5 along with significant central and foraminal stenosis at L3-4 and foraminal stenosis at L5-S1. Options of management were discussed with the patient. Summary of his surgeries in 2017 to date: 03/06/2017: L3-S1 bilateral hemilaminectomy, foraminotomy, partial facetectomy, decompression of nerve roots 04/17/2017: L-spine incision and drainage, drainage of seroma. Cultures intraoperatively with no growth. No antibiotics appear to be have prescribed on discharge. 06/21/2017: L3-L5 bilateral decompression, hemilaminectomy, foraminotomy, partial facetectomy, decompression with reexploration 08/23/2017: Right revision laminectomies with partial facetectomies L3-4, L4-5 and L5-S1, Left revision laminectomies with partial facetectomies L3-4, L4-5 and L5-S1, Incision and drainage lumbar abscess. Intraop cultures positive for Coag neg staph. Patient notes pain in his back but otherwise has noo other symptom complaints. Afebrile. Renal function has declined. Vancomycin stopped and Daptomycin started. Has javier in place. 1500ml urine last 24 hours. Infectious disease is consulted for evaluation and management of coag-negative staphylococcus lumbar abscess possible osteomyelitis. Wound culture has staph lugdunensis. PFSH Past Family Social History Allergies: Coded Allergies: No Known Allergies (Verified Allergy, Unknown, 08/22/17) Past Medical History Gastric ulcers Right renal mass Hyperglycemia Gout Osteoarthritis of the hip Hypertension Spinal stenosis since 2015 status post multiple surgeries Impotence Idiopathic peripheral neuropathy Obesity Past Surgical History 03/06/2017: L3-S1 bilateral hemilaminectomy, foraminotomy, partial facetectomy, decompression of nerve roots 04/17/2017: L-spine incision and drainage, drainage of seroma. Cultures intraoperatively with no growth. No antibiotics appear to be have prescribed on discharge. 06/21/2017: L3-L5 bilateral decompression, hemilaminectomy, foraminotomy, partial facetectomy, decompression with reexploration 08/23/2017: Right revision laminectomies with partial facetectomies L3-4, L4-5 and L5-S1, Left revision laminectomies with partial facetectomies L3-4, L4-5 and L5-S1, Incision and drainage lumbar abscess. Intraop cultures positive for Coag neg staph. Bilateral hernia repair EGD Colonoscopy Antibiotics Vanco IV Lines Line sites with no e.o infection Past Medical History Gastric ulcers Right renal mass Hyperglycemia Gout Osteoarthritis of the hip Hypertension Spinal stenosis since 2014 status post multiple surgeries Impotence Idiopathic peripheral neuropathy Obesity Past Surgical History 03/06/2017: L3-S1 bilateral hemilaminectomy, foraminotomy, partial facetectomy, decompression of nerve roots 04/17/2017: L-spine incision and drainage, drainage of seroma. Cultures intraoperatively with no growth. No antibiotics appear to be have prescribed on discharge. 06/21/2017: L3-L5 bilateral decompression, hemilaminectomy, foraminotomy, partial facetectomy, decompression with reexploration 08/23/2017: Right revision laminectomies with partial facetectomies L3-4, L4-5 and L5-S1, Left revision laminectomies with partial facetectomies L3-4, L4-5 and L5-S1, Incision and drainage lumbar abscess. Intraop cultures positive for Coag neg staph. Bilateral hernia repair EGD Colonoscopy Allergies: Coded Allergies: No Known Allergies (Verified Allergy, Unknown, 08/22/17) Objective Vital Signs Date Time Temp Pulse Resp B/P (MAP) Pulse Ox O2 Delivery O2 Flow Rate FiO2 08/27/17 12:00 97.1 73 17 98/56 (70) 98 08/27/17 08:00 98.0 80 18 97/62 (74) 97 08/27/17 04:00 97.6 84 16 104/66 (79) 96 08/27/17 00:00 98.9 86 18 123/58 (79) 100 08/26/17 20:00 97.4 85 18 117/61 (79) 96 08/26/17 15:51 97.4 91 19 98/60 (73) 97 Laboratory Tests Test 08/27/17 05:36 White Blood Count 9.2 TH/MM3 Red Blood Count 2.52 MIL/MM3 Hemoglobin 7.7 GM/DL Hematocrit 22.6 % Mean Corpuscular Volume 89.7 FL Mean Corpuscular Hemoglobin 30.4 PG Mean Corpuscular Hemoglobin Concent 33.9 % Red Cell Distribution Width 17.3 % Platelet Count 252 TH/MM3 Mean Platelet Volume 8.6 FL Neutrophils (%) (Auto) 70.4 % Lymphocytes (%) (Auto) 17.3 % Monocytes (%) (Auto) 9.2 % Eosinophils (%) (Auto) 2.7 % Basophils (%) (Auto) 0.4 % Neutrophils # (Auto) 6.5 TH/MM3 Lymphocytes # (Auto) 1.6 TH/MM3 Monocytes # (Auto) 0.9 TH/MM3 Eosinophils # (Auto) 0.3 TH/MM3 Basophils # (Auto) 0.0 TH/MM3 CBC Comment DIFF FINAL Differential Comment Laboratory Tests Test 08/26/17 07:05 08/27/17 05:36 08/27/17 13:51 Creatinine 1.97 MG/DL 2.39 MG/DL Estimat Glomerular Filtration Rate 34 ML/MIN 27 ML/MIN Blood Urea Nitrogen 26 MG/DL Random Glucose 93 MG/DL Total Protein 5.2 GM/DL Albumin 1.9 GM/DL Calcium Level 8.0 MG/DL Alkaline Phosphatase 84 U/L Aspartate Amino Transf (AST/SGOT) 15 U/L Alanine Aminotransferase (ALT/SGPT) 12 U/L Total Bilirubin 0.5 MG/DL Sodium Level 138 MEQ/L Potassium Level 4.5 MEQ/L Chloride Level 108 MEQ/L Carbon Dioxide Level 22.0 MEQ/L Anion Gap 8 MEQ/L Total Creatine Kinase 28 U/L GENERAL: Patient is in no acute distress. Awake and alert and oriented. HEENT: EOMI, YOANA, No icterus. NECK: Supple without adenopathy. LUNGS: Clear breath sounds. CARDIAC: Regular rate and rhythm. No murmurs. ABDOMEN: Soft, non tender. EXTREMITIES: No CCE. NEURO: Non focal. SKIN: No rash. PSYCH: Cooperative IV line sites with no e.o infection. Remarks Lumbar spinal abscess probable osteomyelitis. No hardware in place. Coag neg staph spinal abscess. Staph Lugdenensis spinal abscess Lumbar stenosis with radiculopathy with significant pain. Multiple spinal surgeries in 2017. Acute renal failure Drug induced. Vancomycin stopped. Recs: Continue Daptomycin. Cipro gtt. Renal consult. Follow clinical status. . Trever Orellana MD Aug 27, 2017 15:39
[2017-08-27 16:00] VITALS: BP 122/62; PULSE 77; RESP 17; TEMP 97.3; O2SAT 97
--- NOTE | 2017-08-27 16:45 | PD.CONS ---
HPI Consult Requested By Reason for Consult Acute renal insufficiency. Primary Care Physician Jina Turner M.D. History of Present Illness 72-year-old male with a history of severe degenerative disease of the spine with a history of multiple back surgeries and lumbar stenosis. 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 Apparently the patient was receiving vancomycin from August 22 subsequently discontinued secondary to worsening renal function. He is currently on Cipro and daptomycin which was started on 27 August 2017. Patient's creatinine level was noted to have been 0.6 to August 23, 2017 subsequently rising to a level of 2.39 date of consultation. Of interest patient also was experiencing hypotension from August 24 until August 26, 2017. His furosemide was discontinued today. At time of consultation he was on lisinopril as well as Dyazide. Also on Protonix. Patient indicated early in the admission he did have a poor appetite. No previous history of CKD. Review of Systems Constitutional: COMPLAINS OF: Fatigue, Change in appetite, DENIES: Diaphoretic episodes, Fever, Weight gain, Weight loss, Chills, Dizziness, Night Sweats Cardiovascular: DENIES: Chest pain, Palpitations, Syncope, Dyspnea on Exertion , PND, Lower Extremity Edema, Orthopnea, Claudication Gastrointestinal: DENIES: Abdominal pain, Black stools, Bloody stools, Constipation, Diarrhea, Nausea, Vomiting, Difficulty Swallowing, Anorexia Genitourinary: COMPLAINS OF: Nocturia, DENIES: Urinary frequency, Urinary incontinence, Urgency, Hematuria, Dysuria Musculoskeletal: COMPLAINS OF: Joint pain, Back pain (chronic.) Neurologic: COMPLAINS OF: Abnormal gait Psychiatric: DENIES: Confusion, Mood changes Past Family Social History Allergies: Coded Allergies: No Known Allergies (Verified Allergy, Unknown, 08/22/17) Past Medical History Hypertension Severe degenerative joint disease of the back with multiple back surgeries. Recent diagnosis of lumbar abscess and possible osteomyelitis. Lumbar stenosis. Past Surgical History Cryoablation of right renal mass November 23, 2016. According to the patient it was benign. Indicating to me that he is being followed by a urologist. Does not know the name. As documented in the EMR. Reported Medications Reported Meds & Active Scripts Active Reported Flexeril (Cyclobenzaprine HCl) 5 Mg Tab Unknown Dose PO HS Hydrocodone-Acetaminophen 10-325 mg Tab 1 Tab PO Q6H PRN Triamterene-Hydrochlorothiazide 37.5-25 Mg Cap 1 Cap PO BID Gabapentin 400 Mg Cap 400 Cap PO TID Meloxicam 15 Mg Tab 15 Mg PO DAILY Furosemide 20 Mg Tab 20 Mg PO BID Potassium Chloride ER (Potassium Chloride) 10 Meq Cap 10 Meq PO BID Protonix (Pantoprazole Sodium) 40 Mg Tab 20 Mg PO DAILY Multi-Vitamin Daily (Multiple Vitamin) 1 Tab Tab 1 Tab PO DAILY Lisinopril 10 Mg Tab 10 Mg PO DAILY Carvedilol 6.25 Mg Tab 6.25 Mg PO BID Allopurinol 300 Mg Tab 300 Mg PO DAILY Active Ordered Medications Current Medications Chlorhexidine Gluconate (Hibiclens 4% Top Soln) 1 applic ONCE TOPICAL ; Start at 06:30; Stop 08/22/17 at 17:22; Status DC Cefazolin Sodium/ Dextrose 50 ml @ 100 mls/hr WATERMASTER IV Last administered on 08/22/17at 12:15; Start 08/22/17 at 06:30; Stop 08/22/17 at 17:22; Status DC Vancomycin HCl 1000 mg/Sodium Chloride 250 ml @ 250 mls/hr WATERMASTER IV Last administered on 08/22/17at 06:43; Start 08/22/17 at 06:30; Stop 08/22/17 at 17:22 ; Status DC Lactated Ringer's 1,000 ml @ 30 mls/hr Q24H PRN IV SEE LABEL COMMENTS Last administered on 08/22/17at 06:20; Start 08/22/17 at 06:30; Stop 08/22/17 at 17:21 ; Status DC Sodium Chloride 500 ml @ 30 mls/hr [id number] PRN IV SEE LABEL COMMENTS; Start at 06:30; Stop 08/22/17 at 17:21; Status DC Metoprolol Tartrate (Lopressor) 25 mg WATERMASTER PRN PO SEE LABEL COMMENTS; Start 08/22/17 at 06:30; Stop 08/22/17 at 17:21; Status DC Povidone Iodine (Betadine 5% Antisepsis Kit) 1 applic WATERMASTER PRN EACH NARE SEE LABEL COMMENTS Last administered on 08/22/17at 06:36; Start 08/22/17 at 06:30 ; Stop 08/22/17 at 17:21; Status DC Chlorhexidine Gluconate (Chlorhexidine 2% Cloth) 3 pack WATERMASTER PRN TOPICAL SEE LABEL COMMENTS Last administered on 08/22/17at 06:00; Start 08/22/17 at 06:30 ; Stop 08/22/17 at 17:21; Status DC Gentamicin Sulfate (Gentamicin Inj) 160 mg STK-MED ONCE .ROUTE Last administered on 08/22/17at 08:36; Start 08/22/17 at 07:01; Stop 08/22/17 at 07:02 ; Status DC Tranexamic Acid 2010 mg/Sodium Chloride 120.1 ml @ 200 mls/hr UNSCH IV Last administered on 08/22/17at 08:31; Start 08/22/17 at 08:00; Stop 08/22/17 at 14:00 ; Status DC Dexmedetomidine HCl (Precedex Inj) 200 mcg STK-MED ONCE .ROUTE ; Start 08/22/17 at 08:08; Stop 08/22/17 at 08:09; Status DC Vancomycin HCl (Vancomycin Inj) 1,000 mg STK-MED ONCE .ROUTE ; Start 08/22/17 at 08:43; Stop 08/22/17 at 08:44; Status DC Propofol (Diprivan 200 Mg/20 ml Inj) 600 mg STK-MED ONCE .ROUTE ; Start at 13:06; Stop 08/22/17 at 13:07; Status DC Propofol (Diprivan 200 Mg/20 ml Inj) 1,000 mg STK-MED ONCE .ROUTE ; Start 08/22 at 13:06; Stop 08/22/17 at 13:07; Status DC Propofol (Diprivan 200 Mg/20 ml Inj) 400 mg STK-MED ONCE .ROUTE ; Start at 13:07; Stop 08/22/17 at 13:08; Status DC Gentamicin Sulfate (Gentamicin Inj) 160 mg STK-MED ONCE .ROUTE Last administered on 08/22/17at 13:23; Start 08/22/17 at 13:23; Stop 08/22/17 at 13:24 ; Status DC Fentanyl Citrate (fentaNYL INJ) 400 mcg STK-MED ONCE .ROUTE ; Start 08/22/17 at 15:07; Stop 08/22/17 at 15:08; Status DC Midazolam HCl (Versed Inj) 2 mg STK-MED ONCE .ROUTE ; Start 08/22/17 at 15:07; Stop 08/22/17 at 15:08; Status DC Propofol (Diprivan 200 Mg/20 ml Inj) 400 mg STK-MED ONCE .ROUTE ; Start at 15:07; Stop 08/22/17 at 15:08; Status DC Acetaminophen 100 ml @ As Directed STK-MED ONCE IV ; Start 08/22/17 at 15:11; Stop 08/22/17 at 15:12; Status DC Dexmedetomidine HCl (Precedex Inj) 200 mcg STK-MED ONCE .ROUTE ; Start 08/22/17 at 15:11; Stop 08/22/17 at 15:12; Status DC Vancomycin HCl (Vancomycin Inj) 2,000 mg ONCE ONCE OTHER Last administered on 08/22/17at 16:00; Start 08/22/17 at 16:00; Stop 08/22/17 at 17:28; Status DC Tobramycin Sulfate (Nebcin Inj) 1,200 mg ONCE ONCE OTHER ; Start 08/22/17 at 16 :01; Stop 08/22/17 at 17:28; Status DC Sodium Chloride (NS Flush) 2 ml UNSCH PRN IV FLUSH FLUSH AFTER USING IV ACCESS ; Start 08/22/17 at 17:00 Sodium Chloride (NS Flush) 2 ml BID IV FLUSH Last administered on 08/27/17at 08: 49; Start 08/22/17 at 21:00 Miscellaneous Information (Post-op Orders (for Pharmacy)) STAT ONCE XX ; Start 08/22/17 at 17:00; Stop 08/22/17 at 17:29; Status DC Ondansetron HCl (Zofran Inj) 4 mg Q6H PRN IV PUSH NAUSEA OR VOMITING Last administered on 08/26/17at 22:43; Start 08/22/17 at 17:00 Docusate Sodium (Colace) 100 mg BID PO Last administered on 08/27/17at 08:49; Start 08/23/17 at 21:00 Bisacodyl (Dulcolax Supp) 10 mg DAILY PRN RECTAL CONSTIPATION Last administered on 08/26/17at 08:56; Start 08/22/17 at 17:00 Sodium Biphosphate/ Sodium Phosphate (Fleets Enema (Adult)) 133 ml DAILY PRN [place] CONSTIPATION; Start 08/22/17 at 17:00 Naloxone HCl (Narcan Inj) 0.4 mg UNSCH PRN IV PUSH RESPIRATORY RATE LESS THAN 10; Start 08/22/17 at 17:00; Stop 08/24/17 at 07:52; Status DC Morphine Sulfate (Morphine 1 Mg/ ml MANAGEMENT INTERN) 30 mg UNSCH IV Last administered on at 05:54; Start 08/22/17 at 17:00; Stop 08/24/17 at 07:52; Status DC MANAGEMENT INTERN Dosage Infused (Pha) 1 Q8HR .XX Last administered on 08/24/17at 05:47; Start 08/22/17 at 22:00; Stop 08/24/17 at 07:52; Status DC Pharmacy Profile Note 0 ml @ 0 mls/hr UNSCH OTHER ; Start 08/22/17 at 17:00; Stop 08/27/17 at 10:42; Status DC Piperacillin Sod/ Tazobactam Sod 50 ml @ 100 mls/hr Q12H IV Last administered on 08/25/17at 05:24; Start 08/22/17 at 18:00; Stop 08/25/17 at 13:16; Status DC Miscellaneous Information ALL NURSING DEPARTME... UNSCH PRN .XX SEE LABEL COMMENTS; Start 08/22/17 at 17:04; Stop 08/23/17 at 17:03; Status DC Sodium Chloride 1,000 ml @ 125 mls/hr Q8H IV Last administered on 08/26/17at 09 :30; Start 08/22/17 at 17:30 Vancomycin HCl 1250 mg/Sodium Chloride 262.5 ml @ 250 mls/hr ONCE ONCE IV Last administered on 08/23/17at 02:33; Start 08/23/17 at 02:00; Stop 08/23/17 at 03:02; Status DC Allopurinol (Zyloprim) 300 mg DAILY PO Last administered on 08/27/17at 08:48; Start 08/23/17 at 09:00 Carvedilol (Coreg) 6.25 mg BID PO Last administered on 08/27/17at 08:50; Start 08/23/17 at 09:00 Furosemide (Lasix) 20 mg BID PO Last administered on 08/25/17at 08:45; Start at 09:00; Stop 08/27/17 at 11:49; Status DC Gabapentin (Neurontin) 400 mg TID PO Last administered on 08/26/17at 08:54; Start 08/23/17 at 09:00; Stop 08/26/17 at 09:06; Status DC Lisinopril (Prinivil) 10 mg DAILY PO Last administered on 08/25/17at 08:46; Start 08/23/17 at 09:00 Pantoprazole Sodium (Protonix) 20 mg DAILY PO Last administered on 08/27/17at 08 :49; Start 08/23/17 at 09:00 Triamterene/HCTZ (Dyazide 37.5-25 Mg) 1 cap BID PO Last administered on at 21:36; Start 08/23/17 at 09:00 Multivitamins (Theragran) 1 tab DAILY PO Last administered on 08/27/17at 08:52; Start 08/23/17 at 09:00 Cyclobenzaprine HCl (Flexeril) 10 mg Q8H PRN PO MUSCLE SPASM Last administered on 08/27/17at 14:21; Start 08/23/17 at 07:45 Vancomycin HCl 2000 mg/Sodium Chloride 520 ml @ 250 mls/hr Q12H IV Last administered on 08/24/17at 14:00; Start 08/23/17 at 14:00; Stop 08/24/17 at 14:57 ; Status DC Miscellaneous Information SPECIFIC LAB TO BE DRAWN:VANCOMYCIN TROUGH DATE TO... ONCE ONCE .XX Last administered on 08/24/17at 13:45; Start 08/24/17 at 13:45; Stop 08/24/17 at 13:46; Status DC Morphine Sulfate (Morphine Inj) 2 mg Q4H PRN IV PUSH PAIN SCALE 8 TO 10; Start 08/24/17 at 08:00 Acetaminophen/ Hydrocodone Bitart ([place] 10-325 Mg) 1 tab Q4H PRN PO PAIN SCALE 4 TO 7 Last administered on 08/27/17at 14:21; Start 08/24/17 at 08:00 Lactated Ringer's 1,000 ml @ As Directed STK-MED ONCE IV ; Start 08/22/17 at 12 :00; Stop 08/24/17 at 08:18; Status DC Sodium Chloride 500 ml @ As Directed STK-MED ONCE IV ; Start 08/22/17 at 12:00 ; Stop 08/24/17 at 08:18; Status DC Sodium Chloride 750 ml @ As Directed STK-MED ONCE IV ; Start 08/22/17 at 12:00 ; Stop 08/24/17 at 08:18; Status DC Lidocaine HCl (Xylocaine-Mpf 1% Inj) 5 ml STK-MED ONCE OTHER ; Start 08/22/17 at 12:00; Stop 08/24/17 at 08:18; Status DC Rocuronium [place] (Zemuron Inj) 50 mg STK-MED ONCE IV PUSH ; Start 08/22/17 at 12:00; Stop 08/24/17 at 08:18; Status DC Neostigmine Methylsulfate (Prostigmine Inj) 5 mg STK-MED ONCE IV PUSH ; Start at 12:00; Stop 08/24/17 at 08:18; Status DC Glycopyrrolate (Robinul Inj) 1 mg STK-MED ONCE IV PUSH ; Start 08/22/17 at 12:00 ; Stop 08/24/17 at 08:18; Status DC Phenylephrine HCl (Neosynephrine/ NS 1000 Mcg/10ml Syr) 2,000 mcg STK-MED ONCE IV ; Start 08/22/17 at 12:00; Stop 08/24/17 at 08:18; Status DC Phenylephrine HCl (Neosynephrine Inj) 20 mg STK-MED ONCE IV ; Start 08/22/17 at 12:00; Stop 08/24/17 at 08:18; Status DC Dexamethasone Sodium Phosphate (Decadron Inj) 4 mg STK-MED ONCE IV ; Start 08/22 at 12:00; Stop 08/24/17 at 08:18; Status DC Ondansetron HCl (Zofran Inj) 4 mg STK-MED ONCE IV ; Start 08/22/17 at 12:00; Stop 08/24/17 at 08:18; Status DC Cefazolin Sodium (Ancef Inj) 2,000 mg STK-MED ONCE IV ; Start 08/22/17 at 12:00 ; Stop 08/24/17 at 08:18; Status DC Propofol (Diprivan 200 Mg/20 ml Inj) 200 mg STK-MED ONCE IV ; Start 08/22/17 at 12:00; Stop 08/24/17 at 08:18; Status DC Vancomycin HCl 2000 mg/Sodium Chloride 520 ml @ 250 mls/hr Q18H IV Last administered on 08/26/17at 08:53; Start 08/25/17 at 15:00; Stop 08/27/17 at 10:42 ; Status DC Miscellaneous Information SPECIFIC LAB TO BE DRAWN:VANCOMYCIN TROUGH DATE TO... ONCE ONCE .XX Last administered on 08/27/17at 02:45; Start 08/27/17 at 02:45; Stop 08/27/17 at 02:46; Status DC Ciprofloxacin (Ciloxan 0.3% Opth Oint) 1 applic Q8HR RIGHT EYE ; Start 08/25/17 at 14:00; Status Cancel Ciprofloxacin (Ciloxan 0.3% Opth Oint) 1 applic Q8HR LEFT EYE ; Start 08/25/17 at 14:00; Status Cancel Ciprofloxacin (Ciloxan 0.3% Opth Oint) 1 applic Q8HR EACH EYE Last administered on 08/27/17at 14:18; Start 08/25/17 at 16:00 Magnesium Hydroxide (Milk Of Inocencio Alejandre) 30 ml Q12HR PO Last administered on 08/26/17at 08:55; Start 08/25/17 at 21:00 Midodrine (Proamatine) 5 mg TID@07,12,17 PRN PO Systolic BP less than 90 mmHg; Start 08/26/17 at 09:00 Gabapentin (Neurontin) 400 mg BID PO ; Start 08/27/17 at 21:00; Stop 08/27/17 at 21:00; Status DC Gabapentin (Neurontin) 400 mg TID PO Last administered on 08/27/17at 14:18; Start 08/27/17 at 09:00 Daptomycin 1000 mg/Sodium Chloride 100 ml @ 200 mls/hr Q24H IV Last administered on 08/27/17at 14:18; Start 08/27/17 at 13:00 Family History Noncontributory to current complaint. Social History No history of illicit drug use. Physical Exam Vital Signs Vital Signs Date Time Temp Pulse Resp B/P (MAP) Pulse Ox O2 Delivery O2 Flow Rate FiO2 08/27/17 12:00 97.1 73 17 98/56 (70) 98 08/27/17 08:00 98.0 80 18 97/62 (74) 97 08/27/17 04:00 97.6 84 16 104/66 (79) 96 08/27/17 00:00 98.9 86 18 123/58 (79) 100 08/26/17 20:00 97.4 85 18 117/61 (79) 96 Physical Exam GENERAL: Obese male lying in bed not in respiratory distress. SKIN: Warm and dry. HEAD: Normocephalic. EYES: No scleral icterus. No injection or drainage. NECK: Supple, trachea midline. No JVD or lymphadenopathy. CARDIOVASCULAR: Regular rate and rhythm without murmurs, gallops, or rubs. RESPIRATORY: Breath sounds equal bilaterally. No accessory muscle use. GASTROINTESTINAL: Abdomen soft, non-tender, nondistended. MUSCULOSKELETAL: No cyanosis, or edema. Laboratory Laboratory Tests Test 08/27/17 02:55 08/27/17 05:36 08/27/17 13:51 Vancomycin Level Trough 54.8 White Blood Count 9.2 Red Blood Count 2.52 Hemoglobin 7.7 Hematocrit 22.6 Mean Corpuscular Volume 89.7 Mean Corpuscular Hemoglobin 30.4 Mean Corpuscular Hemoglobin Concent 33.9 Red Cell Distribution Width 17.3 Platelet Count 252 Mean Platelet Volume 8.6 Neutrophils (%) (Auto) 70.4 Lymphocytes (%) (Auto) 17.3 Monocytes (%) (Auto) 9.2 Eosinophils (%) (Auto) 2.7 Basophils (%) (Auto) 0.4 Neutrophils # (Auto) 6.5 Lymphocytes # (Auto) 1.6 Monocytes # (Auto) 0.9 Eosinophils # (Auto) 0.3 Basophils # (Auto) 0.0 CBC Comment DIFF FINAL Differential Comment Blood Urea Nitrogen 26 Creatinine 2.39 Random Glucose 93 Total Protein 5.2 Albumin 1.9 Calcium Level 8.0 Alkaline Phosphatase 84 Aspartate Amino Transf (AST/SGOT) 15 Alanine Aminotransferase (ALT/SGPT) 12 Total Bilirubin 0.5 Sodium Level 138 Potassium Level 4.5 Chloride Level 108 Carbon Dioxide Level 22.0 Anion Gap 8 Estimat Glomerular Filtration Rate 27 Total Creatine Kinase 28 Date/Time Source Procedure Growth Status 08/22/17 11:23 Wound Back Fungal Smear - Final NO FUNGAL ELEMENTS SEEN. Resulted 08/22/17 11:23 Wound Back Fungal Culture Pending Resulted Result Diagram: 08/27/17 0536 08/27/17 0536 Imaging Last 48 hours Impressions Chest X-Ray 08/27/17 0000 Signed Impressions: Service Date/Time: Sunday, August 27, 2017 13:32 - CONCLUSION: Left-sided PICC line tip at the cavoatrial junction. Maicol Sandoval MD Assessment and Plan Problem List: (1) Acute kidney insufficiency ICD Codes: N28.9 - Disorder of kidney and ureter, unspecified Status: Acute Plan: Etiology not entirely clear at this time however consideration includes the possible development of vancomycin nephrotoxicity or an interstitial nephritis. It is noted patient is also on Protonix but this is a less likely consideration as etiology presently. Also his acute renal insufficiency may be related to hemodynamic factors given his relatively low blood pressure. This may have been related to intravascular volume depletion with exacerbation of the prerenal state by the presence of the PATRICIA inhibitor as well as diuretics. Glomerulonephritis related to osteomyelitis is also a possible consideration but less so. Check urine for eosinophils as ordered. Agree with discontinuance of vancomycin if other alternatives are available presently. Also recommend discontinuance of Dyazide in addition to the furosemide. I will also discontinue the PATRICIA inhibitor for the present. Renal ultrasound to exclude an occult obstructive process. C3 and C4 which can be depressed with a glomerulonephritis related to osteomyelitis. All of the above was discussed with patient in detail with counseling including the current severity of his renal insufficiency and the possibility that his azotemia may progress as well as prognosis for improvement. Medications should be adjusted for the patient's estimated GFR if clinically indicated. Avoid agents with significant potential for nephrotoxicity possible including NSAIDs for analgesia, iodine contrast agents. Gadolinium is contraindicated if the GFR is below 30. (2) Hypotension ICD Codes: I95.9 - Hypotension, unspecified Status: Acute Plan: Recommendations as above. Continue IV hydration. (3) Lumbar spinal stenosis ICD Codes: M48.061 - Spinal stenosis, lumbar region without neurogenic claudication (4) HTN (hypertension) ICD Codes: I10 - Essential (primary) hypertension Benjy Oh MD Aug 27, 2017 16:45
--- NOTE | 2017-08-27 16:54 | HHI.PR ---
Subjective Remarks Patient has no new complaints today, he understands we have some issues to work out before he can go to rehab. Objective Vitals Vital Signs Date Time Temp Pulse Resp B/P (MAP) Pulse Ox O2 Delivery O2 Flow Rate FiO2 08/27/17 12:00 97.1 73 17 98/56 (70) 98 08/27/17 08:00 98.0 80 18 97/62 (74) 97 08/27/17 04:00 97.6 84 16 104/66 (79) 96 08/27/17 00:00 98.9 86 18 123/58 (79) 100 08/26/17 20:00 97.4 85 18 117/61 (79) 96 I/O 08/26/17 08/26/17 08/26/17 08/27/17 08/27/17 08/27/17 07:00 15:00 23:00 07:00 15:00 23:00 Intake Total 240 ml 850 ml 240 ml 480 ml 1123 ml 100 ml Output Total 350 ml 450 ml 400 ml 650 ml 350 ml Balance -110 ml 400 ml -160 ml -170 ml 773 ml 100 ml Intake Oral 240 ml 850 ml 240 ml 480 ml 600 ml IV Total 523 ml 100 ml Output Urine Total 350 ml 450 ml 400 ml 650 ml 350 ml # Bowel Movements 0 1 0 0 0 Result Diagram: 08/27/1736 08/27/17 05 Objective Remarks GENERAL: Well-nourished, well-developed patient. SKIN: Warm and dry. HEAD: Normocephalic. EYES: No scleral icterus. No injection or drainage. NECK: Supple, trachea midline. No JVD or lymphadenopathy. CARDIOVASCULAR: Regular rate and rhythm without murmurs, gallops, or rubs. RESPIRATORY: Breath sounds equal bilaterally. No accessory muscle use. GASTROINTESTINAL: Abdomen soft, non-tender, nondistended. BACK: Tender at surgical site. EXTREMITIES: no significant edema A/P Problem List: (1) Lumbar post-laminectomy syndrome ICD Code: M96.1 - Postlaminectomy syndrome, not elsewhere classified (2) Lumbar spinal stenosis ICD Code: M48.061 - Spinal stenosis, lumbar region without neurogenic claudication (3) HTN (hypertension) ICD Code: I10 - Essential (primary) hypertension (4) History of gout ICD Code: Z87.39 - Personal history of other diseases of the musculoskeletal system and connective tissue (5) S/P lumbar laminectomy ICD Code: Z98.890 - Other specified postprocedural states Assessment and Plan Acute Renal Insufficiency Etilogy is unclear, vancomycin held for high trough, lasix stopped for now Will follow Creatinine trend Revision bilateral L3,4,5,S1 laminectomies Surgery performed 08/22/17 Hypotension History of hypertension Remains stable Midodrine provided PRN for any recurrence of hypotension on an as-needed basis Parameters placed on lisinopril and triamterene/hydrochlorothiazide Continue Coreg Possible spinal infection No acute signs of infection clinically or by history Possible colonization or chronic infection Cultures show christine-sensitive staph L. Surgeons following Gout Continue allopurinol DVT prophylaxis Anticoagulation at discretion of surgeon Eduin Burris MD Aug 27, 2017 16:54
--- NOTE | 2017-08-27 18:21 | RADRPT ---
EXAM DATE/TIME: 08/27/2017 17:45 [place] COMPARISON: No previous studies available for comparison. INDICATIONS : Increased BUN/Creatnine. MEDICAL HISTORY : Hypertension. Numbness, feet. Bleeding ulcers. Arthritis. GOUT. Nocturia. SURGICAL HISTORY : Hernia repair. Back surgery. ENCOUNTER: Initial ACUITY: 1 day PAIN SCORE: 0/10 LOCATION: Bilateral flank MEASUREMENTS: RIGHT KIDNEY: 11.1 x 3.9 x 5.2 cm LEFT KIDNEY: 13.4 x x 5.3 cm FINDINGS: RIGHT KIDNEY: 2.5 x 2.6 x 2.3 cm mildly complex cystic mass in the medial midpole of the right kidney. 1.6 x 1.8 x 1.6 cm exophytic complex cyst or solid mass at the medial lower pole of the right kidney. No evidence hydronephrosis. LEFT KIDNEY: Possible 3 mm calculus in the lower pole of the left kidney. No evidence of hydronephrosis. BLADDER: Collapsed. CONCLUSION: 1. No evidence hydronephrosis. 2. Complex cystic or solid mass in the lower pole the right kidney and complexes at mass in the midpo le of the right kidney. 3. Possible punctate nonobstructing calculus in the left kidney. Maicol Sandoval MD on August 27, 2017 at 18:16 Board Certified Radiologist. This report was verified electronically.
[2017-08-27 20:00] VITALS: BP 126/76; PULSE 86; RESP 18; TEMP 98; O2SAT 96
[2017-08-27 20:36] LABS: BILIRUBIN, URINE NEG (NEG); BLOOD, URINE NEG (NEG); GLUCOSE,URINE NEG (NEG); KETONE, URINE NEG (NEG); NITRITE,URINE NEG (NEG); PH, URINE 6.5 (5.0-8.5); URINE COLOR LIGHT-YELLOW (YELLW/STRAW); URINE LEUKOCYTE ESTERASE MOD (NEG)
[2017-08-27 20:43] LABS: CREATININE, RANDOM URINE 29.8 MG/DL
[2017-08-27] MEDS ORDERED: GABAPENTIN 400 MG CAP PO SCH (21:00)
[2017-08-28] VITALS: BP 103/72; PULSE 104; RESP 18; TEMP 98; O2SAT 97
[2017-08-28] MEDS: SODIUM CHLOR 0.9% 1000 ML INJ 1,000 ML IV SCH ×4 (01:49→20:44)
[2017-08-28] MEDS: CYCLOBENZAPRINE HCL 10 MG TAB PO PRN ×2 (04:42→20:42)
[2017-08-28] MEDS: ACETAMINOPHEN/HYDROcodone 325 MG/10 MG TAB PO PRN ×4 (04:43→23:44)
[2017-08-28] MEDS: CIPROFLOXACIN 0.3% OPTH OINT 3.5 GM TUBO EACH EYE SCH ×3 (04:44→20:44)
--- NOTE | 2017-08-28 07:35 | PD.ORT.PN ---
Subjective Subjective Remarks Patient resting comfortably this morning. Denies any headaches or nausea. Patient states he attempted to get out of bed yesterday but had too much back pain. He does report some mild lightheadedness when he tried to get out of bed yesterday. Denies shortness of breath or chest pain. Does have significantly elevated creatinine for which nephrology has been consulted Objective Vitals Vital Signs Date Time Temp Pulse Resp B/P (MAP) Pulse Ox O2 Delivery O2 Flow Rate FiO2 08/28/17 00:00 98.0 104 18 103/72 (82) 97 08/27/17 20:00 98.0 86 18 126/76 (93) 96 08/27/17 16:00 97.3 77 17 122/62 (82) 97 08/27/17 12:00 97.1 73 17 98/56 (70) 98 08/27/17 08:00 98.0 80 18 97/62 (74) 97 I/O 08/27/17 08/27/17 08/27/17 08/28/17 08/28/17 08/28/17 07:00 15:00 23:00 07:00 15:00 23:00 Intake Total 480 ml 1123 ml 580 ml 1197 ml Output Total 650 ml 350 ml 850 ml 450 ml Balance -170 ml 773 ml -270 ml 747 ml Intake Oral 480 ml 600 ml 480 ml 720 ml IV Total 523 ml 100 ml 477 ml Output Urine Total 650 ml 350 ml 850 ml 450 ml # Bowel Movements 0 0 0 0 Result Diagram: 08/27/17 0536 08/27/17 0536 Objective Remarks Awake, alert, no acute distress. Nonlabored respirations Bilateral lower extremities: 5 out of 5 strength throughout hip flexors, quads, hamstrings, tib ant, gastrocs, EHL and FHL. Sensation intact. Brisk cap refill Assessment & Plan Assessment and Plan 72-year-old man now postop day 6 status post revision bilateral L3 4, L4 5 and L5-S1 laminectomies. Concern for purulence Intra-Op and therefore hardware placement was aborted and only decompression performed. Small intraoperative dural leak. 1. Patient without signs of CSF leak. Patient should be mobilizing on a daily basis out of bed to bedside chair at least with brace on. I discussed with the patient that I understand he does have back pain but he needs to work through it and needs to be able to mobilize to chair. 2. No chemical anticoagulation. DVT prophylaxis with SCDs/MONTSERRAT hose 3. Intraoperative cultures show Staphylococcus Lugadensis. Appreciate ID assistance. Given positive cultures, I will not be able to place hardware in the next several weeks. I discussed with the patient that it will likely be at least 2-3 months before we are able to place hardware. He will require brace when he is out of bed. He will require likely 6-8 weeks of IV antibiotics prior to any type of consideration for hardware placement. Patient with elevated creatinine and therefore has been switched to daptomycin and Cipro in place of Vanc 4. Hemoglobin is approximately 7.7 with mild symptoms. Will transfuse one unit today. 5. Given his elevated creatinine and nephrology is following, I will allow them to determine when his Martin should be removed. 6. Discharge to rehabilitation once creatinine improved . Jessica Stubbs MD Aug 28, 2017 07:35
[2017-08-28] MEDS: CARVEDILOL 6.25 MG TAB PO SCH ×2 (07:47→20:43)
[2017-08-28] MEDS: GABAPENTIN 400 MG CAP PO SCH ×2 (07:47→20:42)
[2017-08-28] MEDS: PANTOPRAZOLE SOD 20 MG DELAYED RELEASE TAB PO SCH (07:47)
[2017-08-28] MEDS: ALLOPURINOL 300 MG TAB PO SCH (07:47)
[2017-08-28] MEDS: DOCUSATE SODIUM 100 MG CAP PO SCH ×2 (07:48→20:43)
[2017-08-28] MEDS: MULTIVITAMIN TAB PO SCH (07:51)
[2017-08-28] MEDS: MAGNESIUM HYDROXIDE SUSP 30 ML CUP PO SCH ×2 (07:51→20:43)
[2017-08-28 08:00] VITALS: BP 123/72; PULSE 86; RESP 18; TEMP 97.2; O2SAT 97
[2017-08-28] MEDS: SODIUM CHLORIDE 0.9% FLUSH 10 ML FLUSH IV FLUSH SCH ×2 (09:00→20:43)
[2017-08-28 09:23] LABS: CALCIUM 8.8 MG/DL (8.5-10.1); CREATININE 2.65 MG/DL (0.60-1.30)
[2017-08-28 09:33] LABS: PHOSPHORUS 3.7 MG/DL (2.5-4.9)
--- NOTE | 2017-08-28 10:15 | HHI.NPPN ---
Subjective History of Present Illness 72-year-old male with a history of severe degenerative disease of the spine with a history of multiple back surgeries and lumbar stenosis. 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 Apparently the patient was receiving vancomycin from August 22 subsequently discontinued secondary to worsening renal function. He is currently on Cipro and daptomycin which was started on 27 August 2017. Patient's creatinine level was noted to have been 0.6 to August 23, 2017 subsequently rising to a level of 2.39 date of consultation. Of interest patient also was experiencing hypotension from August 24 until August 26, 2017. His furosemide was discontinued today. At time of consultation he was on lisinopril as well as Dyazide. Also on Protonix. Patient indicated early in the admission he did have a poor appetite. No previous history of CKD. Interval History Pt feeling OK today. Some discomfort in back. (Gina Jim) Review of Systems General General Remarks Negative complaints besides back pain (Gina Jim) Musculoskeletal MS: Pain/Stiffness (Gina Jim) Objective Data Data Vital Signs Date Time Temp Pulse Resp B/P (MAP) Pulse Ox O2 Delivery O2 Flow Rate FiO2 08/28/17 00:00 98.0 104 18 103/72 (82) 97 08/27/17 20:00 98.0 86 18 126/76 (93) 96 08/27/17 16:00 97.3 77 17 122/62 (82) 97 08/27/17 12:00 97.1 73 17 98/56 (70) 98 (Gina Jim) -: 08/27/17 0536 08/28/17 0630 Imaging Last Impressions Renal Ultrasound 08/27/17 0000 Signed Impressions: Service Date/Time: Sunday, August 27, 2017 17:45 - CONCLUSION: 1. No evidence hydronephrosis. 2. Complex cystic or solid mass in the lower pole the right kidney and complexes at mass in the midpole of the right kidney. 3. Possible punctate nonobstructing calculus in the left kidney. Maicol Sandoval MD Chest X-Ray 08/27/17 0000 Signed Impressions: Service Date/Time: Sunday, August 27, 2017 13:32 - CONCLUSION: Left-sided PICC line tip at the cavoatrial junction. Maicol Sandoval MD Medication Review Current Medications Medications (Trade) Dose Ordered Sig/Samia Route Start Time Stop Time Status Last Admin (NS Flush) 2 ml UNSCH PRN IV FLUSH 08/22/17 17:00 (NS Flush) 2 ml BID IV FLUSH 08/22/17 21:00 08/27/17 08:49 (Zofran Inj) 4 mg Q6H PRN IV PUSH 08/22/17 17:00 08/26/17 22:43 (Colace) 100 mg BID PO 08/23/17 21:00 08/28/17 07:48 (Dulcolax Supp) 10 mg DAILY PRN RECTAL 08/22/17 17:00 08/26/17 08:56 (Fleets Enema (Adult)) 133 ml DAILY PRN AL 08/22/17 17:00 Sodium Chloride 1,000 ml @ 125 mls/hr Q8H IV 08/22/17 17:30 08/28/17 01:49 (Zyloprim) 300 mg DAILY PO 08/23/17 09:00 08/28/17 07:47 (Coreg) 6.25 mg BID PO 08/23/17 09:00 08/28/17 07:47 (Protonix) 20 mg DAILY PO 08/23/17 09:00 08/28/17 07:47 (Theragran) 1 tab DAILY PO 08/23/17 09:00 08/28/17 07:51 (Flexeril) 10 mg Q8H PRN PO 08/23/17 07:45 08/28/17 04:42 (Morphine Inj) 2 mg Q4H PRN IV PUSH 08/24/17 08:00 ([place] 10-325 Mg) 1 tab Q4H PRN PO 08/24/17 08:00 08/28/17 04:43 (Ciloxan 0.3% Opth Oint) 1 applic Q8HR EACH EYE 08/25/17 16:00 08/27/17 20:19 (Milk Of Magnesia Liq) 30 ml Q12HR PO 08/25/17 21:00 08/28/17 07:51 (Proamatine) 5 mg TID@07,12,17 PRN PO 08/26/17 09:00 Daptomycin 1000 mg/Sodium Chloride 100 ml @ 200 mls/hr Q24H IV 08/27/17 13:00 08/27/17 14:18 (Neurontin) 400 mg BID PO 08/28/17 09:00 08/28/17 07:47 (Gina Jim) Physical Exam General Appearance: No Acute Distress, Comfortable (Gina Jim) Eyes Eye Exam: Pupils Equal (Gina Jim) Throat Throat Exam: Oral Mucosa Netos & Moist (Gina Jim) Pulmonary Resp Exam: Clear Bilaterally, Breath Sounds Equal (Gina Jim) Cardiology CV Exam: Regular, Normal Sinus Rhythm (Gina Jim) Gastrointestinal/Abdomen GI Exam: Soft, Non-Tender (Gina Jim) Genitourinary Exam: Clear Urine (Gina Jim) Integumentary Skin Exam: Clear, Warm (Gina Jim) Extremeties Extremities Exam: No Edema (Gina Jim) Neurologic Neuro Exam: Alert, Awake, Oriented (Gina Jim) Psychiatric Psych Exam: Appropriate Responses (Gina Jim) Assessment/Plan Problem List: (1) Acute kidney insufficiency ICD Codes: N28.9 - Disorder of kidney and ureter, unspecified Status: Acute Plan: Renal functions deteriorated overnight despite IV hydration. Pt may have sustained ATN related to hypotension and Vancomycin toxicity. To continue on IVF and monitor. As discussed with the patient, things may get worse before they get better. Continue to monitor I&Os closely. Complement levels pending. UA negative. Renal US discussed with the patient. Has 2 complex lesions on right kidney. States he is well aware of these and is under the care of Dr. Gerald Pettit. 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 Advised importance of f/u [facility] urology as outpatient. All of the above was discussed with patient in detail with counseling including the current severity of his renal insufficiency and the possibility that his azotemia may progress as well as prognosis for improvement. Medications should be adjusted for the patient's estimated GFR if clinically indicated. Avoid agents with significant potential for nephrotoxicity possible including NSAIDs for analgesia, iodine contrast agents. Gadolinium is contraindicated if the GFR is below 30. (2) Hypotension ICD Codes: I95.9 - Hypotension, unspecified Status: Acute Plan: Recommendations as above. Continue IV hydration. (3) Lumbar spinal stenosis ICD Codes: M48.061 - Spinal stenosis, lumbar region without neurogenic claudication (4) HTN (hypertension) ICD Codes: I10 - Essential (primary) hypertension (5) Anemia ICD Codes: D64.9 - Anemia, unspecified Plan: Repeat CBC with Fe panel. Of interest, states he had a bone marrow biopsy done sometime last year by a physician at [facility]. Reports all findings were normal. Will try to obtain records. (Gina Jim) Plan The exam, history, and the medical decision-making described in the above note were completed with the assistance of the PA-C. I reviewed and agree with the findings presented. I attest that I had a [id number] encounter with the patient on the same day, and personally performed and documented my assessment and findings in the medical record. (Benjy Oh MD) Gina Jim Aug 28, 2017 10:15 Benjy Oh MD Aug 28, 2017 16:11
[2017-08-28 10:32] LABS: COMPLEMENT C3 133 MG/DL (90-180); COMPLEMENT C4 33 MG/DL (10-40)
[2017-08-28 10:44] LABS: AUTOMATED NEUTROPHIL # 5.5 TH/MM3 (1.8-7.7); BASOPHIL # 0.1 TH/MM3 (0-0.2); BASOPHIL % 0.7 % (0.0-2.0); EOSINOPHIL # 0.5 TH/MM3 (0-0.4); EOSINOPHIL % 5.7 % (0.0-4.0); HEMATOCRIT 23.9 % (39.0-51.0); LYMPH % 18.8 % (9.0-44.0); LYMPHOCYTE # 1.6 TH/MM3 (1.0-4.8); MEAN CORPUSCULAR HEMOGLOBIN 30.3 PG (27.0-34.0); MEAN CORPUSCULAR HGB CONC 33.3 % (32.0-36.0); MEAN PLATELET VOLUME 8.2 FL (7.0-11.0); MONO % 9.7 % (0.0-8.0); MONOCYTE # 0.8 TH/MM3 (0-0.9); NEUT % 65.1 % (16.0-70.0); PLATELET COUNT 273 TH/MM3 (150-450); RED BLOOD COUNT 2.63 MIL/MM3 (4.50-5.90); RED CELL DISTRIBUTION WIDTH 17.5 % (11.6-17.2); WHITE BLOOD COUNT 8.5 TH/MM3 (4.0-11.0)
[2017-08-28 12:00] VITALS: BP 108/66; PULSE 80; RESP 18; TEMP 96.1; O2SAT 98
[2017-08-28] MEDS: DAPTOmycin INJ 1,000 MG in SODIUM CHLORIDE 0.9% INJ 100 ML IV SCH (13:33)
[2017-08-28 13:40] LABS: % SATURATION IRON PROFILE 7.4 % (20-50); IRON (FE) 19 MCG/DL (65-175); TOTAL IRON BINDING CAPACITY 256 MCG/DL (250-450)
[2017-08-28 13:43] LABS: FERRITIN 66 NG/ML (26-388)
--- NOTE | 2017-08-28 15:27 | HHI.IDPN ---
Subjective Subjective Remarks is a 72 y/o CM who underwent bilateral hemilaminectomies at L3-S1 in February of 2017. Patient reports this is his 4th surgery but he has had no hardware to date. He reports he initially had significant improvement in his radicular symptoms, however, he developed a large fluid collection requiring drainage in March. Subsequently, he developed recurrent symptoms and early May with imaging demonstrating a recurrent disc herniation requiring revision bilateral hemilaminectomies at L3-L5 by Dr. Beaulieu. Postoperatively , he had significant improvement in his symptoms for only 2 weeks with recurrent radiculopathy and neurogenic medications symptoms. Repeat imaging at the beginning of July demonstrated a recurrent disc herniation at L4-5 along with significant central and foraminal stenosis at L3-4 and foraminal stenosis at L5-S1. Options of management were discussed with the patient. Summary of his surgeries in 2017 to date: 03/06/2017: L3-S1 bilateral hemilaminectomy, foraminotomy, partial facetectomy, decompression of nerve roots 04/17/2017: L-spine incision and drainage, drainage of seroma. Cultures intraoperatively with no growth. No antibiotics appear to be have prescribed on discharge. 06/21/2017: L3-L5 bilateral decompression, hemilaminectomy, foraminotomy, partial facetectomy, decompression with reexploration 08/23/2017: Right revision laminectomies with partial facetectomies L3-4, L4-5 and L5-S1, Left revision laminectomies with partial facetectomies L3-4, L4-5 and L5-S1, Incision and drainage lumbar abscess. Intraop cultures positive for Coag neg staph. Pertinent positives and negatives: denies B/B incontinence denies fever, chills or night sweats Reports anorexia and weight loss. Has perineal sensation. Defers rectal exam due to significant pain. No paresthesias or focal neuro deficit in LEs. Infectious disease is consulted for evaluation and management of coag-negative staphylococcus lumbar abscess possible osteomyelitis. Past Medical History Gastric ulcers Right renal mass Hyperglycemia Gout Osteoarthritis of the hip Hypertension Spinal stenosis since 2015 status post multiple surgeries Impotence Idiopathic peripheral neuropathy Obesity Past Surgical History 03/06/2017: L3-S1 bilateral hemilaminectomy, foraminotomy, partial facetectomy, decompression of nerve roots 04/17/2017: L-spine incision and drainage, drainage of seroma. Cultures intraoperatively with no growth. No antibiotics appear to be have prescribed on discharge. 06/21/2017: L3-L5 bilateral decompression, hemilaminectomy, foraminotomy, partial facetectomy, decompression with reexploration 08/23/2017: Right revision laminectomies with partial facetectomies L3-4, L4-5 and L5-S1, Left revision laminectomies with partial facetectomies L3-4, L4-5 and L5-S1, Incision and drainage lumbar abscess. Intraop cultures positive for Coag neg staph. Bilateral hernia repair EGD Colonoscopy Overnight events reviewed Left Eye irritation reduced. Feels Left eye has improved. On Cipro gtt. No fever No rash No diarrhea UO 1650 ml overnight. Antibiotics Vanco IV Lines Line sites with no e.o infection Past Medical History Gastric ulcers Right renal mass Hyperglycemia Gout Osteoarthritis of the hip Hypertension Spinal stenosis since 2014 status post multiple surgeries Impotence Idiopathic peripheral neuropathy Obesity Past Surgical History 03/06/2017: L3-S1 bilateral hemilaminectomy, foraminotomy, partial facetectomy, decompression of nerve roots 04/17/2017: L-spine incision and drainage, drainage of seroma. Cultures intraoperatively with no growth. No antibiotics appear to be have prescribed on discharge. 06/21/2017: L3-L5 bilateral decompression, hemilaminectomy, foraminotomy, partial facetectomy, decompression with reexploration 08/23/2017: Right revision laminectomies with partial facetectomies L3-4, L4-5 and L5-S1, Left revision laminectomies with partial facetectomies L3-4, L4-5 and L5-S1, Incision and drainage lumbar abscess. Intraop cultures positive for Coag neg staph. Bilateral hernia repair EGD Colonoscopy Allergies: Coded Allergies: No Known Allergies (Verified Allergy, Unknown, 08/22/17) Objective . Vital Signs Date Time Temp Pulse Resp B/P (MAP) Pulse Ox O2 Delivery O2 Flow Rate FiO2 08/28/17 12:00 96.1 80 18 108/66 (80) 98 08/28/17 08:00 97.2 86 18 123/72 (89) 97 08/28/17 00:00 98.0 104 18 103/72 (82) 97 08/27/17 20:00 98.0 86 18 126/76 (93) 96 08/27/17 16:00 97.3 77 17 122/62 (82) 97 . Laboratory Tests Test 08/27/17 05:36 08/28/17 10:23 White Blood Count 9.2 TH/MM3 8.5 TH/MM3 Red Blood Count 2.52 MIL/MM3 2.63 MIL/MM3 Hemoglobin 7.7 GM/DL 8.0 GM/DL Hematocrit 22.6 % 23.9 % Mean Corpuscular Volume 89.7 FL 91.0 FL Mean Corpuscular Hemoglobin 30.4 PG 30.3 PG Mean Corpuscular Hemoglobin Concent 33.9 % 33.3 % Red Cell Distribution Width 17.3 % 17.5 % Platelet Count 252 TH/MM3 273 TH/MM3 Mean Platelet Volume 8.6 FL 8.2 FL Neutrophils (%) (Auto) 70.4 % 65.1 % Lymphocytes (%) (Auto) 17.3 % 18.8 % Monocytes (%) (Auto) 9.2 % 9.7 % Eosinophils (%) (Auto) 2.7 % 5.7 % Basophils (%) (Auto) 0.4 % 0.7 % Neutrophils # (Auto) 6.5 TH/MM3 5.5 TH/MM3 Lymphocytes # (Auto) 1.6 TH/MM3 1.6 TH/MM3 Monocytes # (Auto) 0.9 TH/MM3 0.8 TH/MM3 Eosinophils # (Auto) 0.3 TH/MM3 0.5 TH/MM3 Basophils # (Auto) 0.0 TH/MM3 0.1 TH/MM3 CBC Comment DIFF FINAL DIFF FINAL Differential Comment Laboratory Tests Test 08/27/17 05:36 08/27/17 13:51 08/28/17 06:30 Blood Urea Nitrogen 26 MG/DL 30 MG/DL Creatinine 2.39 MG/DL 2.65 MG/DL Random Glucose 93 MG/DL 97 MG/DL Total Protein 5.2 GM/DL Albumin 1.9 GM/DL 2.0 GM/DL Calcium Level 8.0 MG/DL 8.8 MG/DL Alkaline Phosphatase 84 U/L Aspartate Amino Transf (AST/SGOT) 15 U/L Alanine Aminotransferase (ALT/SGPT) 12 U/L Total Bilirubin 0.5 MG/DL Sodium Level 138 MEQ/L 138 MEQ/L Potassium Level 4.5 MEQ/L 4.6 MEQ/L Chloride Level 108 MEQ/L 108 MEQ/L Carbon Dioxide Level 22.0 MEQ/L 21.0 MEQ/L Anion Gap 8 MEQ/L 9 MEQ/L Estimat Glomerular Filtration Rate 27 ML/MIN 24 ML/MIN Total Creatine Kinase 28 U/L Phosphorus Level 3.7 MG/DL Iron Level 19 MCG/DL Total Iron Binding Capacity 256 MCG/DL Percent Iron Saturation 7.4 % Ferritin 66 NG/ML 25-Hydroxy Vitamin D Total 17.0 ng/ML Imaging Last Impressions Renal Ultrasound 08/27/17 0000 Signed Impressions: Service Date/Time: Sunday, August 27, 2017 17:45 - CONCLUSION: 1. No evidence hydronephrosis. 2. Complex cystic or solid mass in the lower pole the right kidney and complexes at mass in the midpole of the right kidney. 3. Possible punctate nonobstructing calculus in the left kidney. Maicol Sandoval MD Chest X-Ray 08/27/17 0000 Signed Impressions: Service Date/Time: Sunday, August 27, 2017 13:32 - CONCLUSION: Left-sided PICC line tip at the cavoatrial junction. Maicol Sandoval MD Physical Exam GENERAL: This is a well-nourished, well-developed patient, in no apparent distress. SKIN: No rashes, ecchymoses or lesions. Cool and dry. HEAD: Atraumatic. Normocephalic. No temporal or scalp tenderness. EYES: Pupils equal round and reactive. Extraocular motions intact. No scleral icterus. No injection or drainage. ENT: Nose without bleeding, purulent drainage or septal hematoma. Throat without erythema, tonsillar hypertrophy or exudate. Uvula midline. Airway patent. NECK: Trachea midline. Supple, nontender, no meningeal signs. CARDIOVASCULAR: Regular rate and rhythm without murmurs, gallops, or rubs. RESPIRATORY: Clear to auscultation. Breath sounds equal bilaterally. No wheezes , rales, or rhonchi. GASTROINTESTINAL: Abdomen soft, non-tender, nondistended. MUSCULOSKELETAL: Extremities without clubbing, cyanosis, or edema. No joint tenderness, effusion, or edema noted. No calf tenderness. Negative Homans sign bilaterally. Wiggles his toes. Surgical site ok. NEUROLOGICAL: Awake and alert. Non focal exam. Psych cooperative IV line sites with no e.o infection. 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 No hardware in place. Coag neg staph spinal abscess. Staph Lugdenensis spinal abscess Lumbar stenosis with radiculopathy with significant pain. Multiple spinal surgeries in 2017. Left eyebrow cellulitis/conjunctivitis Recs: DC Vanco IV Continue Dapto IV. Continue Cipro gtt. Appreciate nephrology recs. Follow Cr trends. Urine eosinophils negative. Follow clinically. d/w pt. Marla Culp MD Aug 28, 2017 15:27
[2017-08-28 16:00] VITALS: BP 98/61; PULSE 88; RESP 18; TEMP 96.9; O2SAT 98
--- NOTE | 2017-08-28 18:08 | HHI.PR ---
Subjective Remarks Mr. Do has no new complaints. He has post-surgical pain but denies any renal pain. Objective Vitals Vital Signs Date Time Temp Pulse Resp B/P (MAP) Pulse Ox O2 Delivery O2 Flow Rate FiO2 08/28/17 12:00 96.1 80 18 108/66 (80) 98 08/28/17 08:00 97.2 86 18 123/72 (89) 97 08/28/17 00:00 98.0 104 18 103/72 (82) 97 08/27/17 20:00 98.0 86 18 126/76 (93) 96 I/O 08/27/17 08/27/17 08/27/17 08/28/17 08/28/17 08/28/17 07:00 15:00 23:00 07:00 15:00 23:00 Intake Total 480 ml 1123 ml 580 ml 1197 ml Output Total 650 ml 350 ml 850 ml 450 ml Balance -170 ml 773 ml -270 ml 747 ml Intake Oral 480 ml 600 ml 480 ml 720 ml IV Total 523 ml 100 ml 477 ml Output Urine Total 650 ml 350 ml 850 ml 450 ml # Bowel Movements 0 0 0 0 Result Diagram: 08/28/17 1023 08/28/17 0630 Objective Remarks GENERAL: Well-nourished, well-developed patient. SKIN: Warm and dry. HEAD: Normocephalic. EYES: No scleral icterus. No injection or drainage. NECK: Supple, trachea midline. No JVD or lymphadenopathy. CARDIOVASCULAR: Regular rate and rhythm without murmurs, gallops, or rubs. RESPIRATORY: Breath sounds equal bilaterally. No accessory muscle use. GASTROINTESTINAL: Abdomen soft, non-tender, nondistended. BACK: Tender at surgical site. EXTREMITIES: no significant edema A/P Problem List: (1) Lumbar post-laminectomy syndrome ICD Code: M96.1 - Postlaminectomy syndrome, not elsewhere classified (2) Lumbar spinal stenosis ICD Code: M48.061 - Spinal stenosis, lumbar region without neurogenic claudication (3) HTN (hypertension) ICD Code: I10 - Essential (primary) hypertension (4) History of gout ICD Code: Z87.39 - Personal history of other diseases of the musculoskeletal system and connective tissue (5) S/P lumbar laminectomy ICD Code: Z98.890 - Other specified postprocedural states Assessment and Plan Acute Renal Insufficiency Etilogy is unclear, vancomycin held for high trough, lasix stopped for now Consider renal mass (on US) vs. Vancomycin Following Creatinine Revision bilateral L3,4,5,S1 laminectomies Surgery performed 08/22/17 Hypotension History of hypertension Stable, continue Coreg Midodrine provided PRN for any recurrence of hypotension on an as-needed basis Parameters placed on lisinopril and triamterene/hydrochlorothiazide Possible spinal infection No acute signs of infection clinically or by history Possible colonization or chronic infection Cultures show christine-sensitive staph L. Surgery following Gout Continue allopurinol DVT prophylaxis Anticoagulation at discretion of surgeon Eduin Burris MD Aug 28, 2017 18:08
[2017-08-29] MEDS: ACETAMINOPHEN/HYDROcodone 325 MG/10 MG TAB PO PRN ×5 (03:42→22:07)
[2017-08-29] MEDS: CYCLOBENZAPRINE HCL 10 MG TAB PO PRN ×2 (05:40→14:55)
[2017-08-29] MEDS: CIPROFLOXACIN 0.3% OPTH OINT 3.5 GM TUBO EACH EYE SCH ×3 (05:56→22:07)
[2017-08-29 07:15] LABS: AUTOMATED NEUTROPHIL # 5.8 TH/MM3 (1.8-7.7); BASOPHIL % 0.5 % (0.0-2.0); EOSINOPHIL # 0.4 TH/MM3 (0-0.4); HEMATOCRIT 23.8 % (39.0-51.0); HEMOGLOBIN 7.7 GM/DL (13.0-17.0); LYMPH % 19.3 % (9.0-44.0); LYMPHOCYTE # 1.7 TH/MM3 (1.0-4.8); MEAN CELL VOLUME 90.7 FL (80.0-100.0); MEAN CORPUSCULAR HEMOGLOBIN 29.4 PG (27.0-34.0); MEAN CORPUSCULAR HGB CONC 32.4 % (32.0-36.0); MEAN PLATELET VOLUME 8.1 FL (7.0-11.0); MONO % 8.1 % (0.0-8.0); MONOCYTE # 0.7 TH/MM3 (0-0.9); NEUT % 67.1 % (16.0-70.0); PLATELET COUNT 278 TH/MM3 (150-450); RED BLOOD COUNT 2.63 MIL/MM3 (4.50-5.90); RED CELL DISTRIBUTION WIDTH 17.6 % (11.6-17.2); WHITE BLOOD COUNT 8.7 TH/MM3 (4.0-11.0)
[2017-08-29 07:47] LABS: ALBUMIN 2.1 GM/DL (3.4-5.0); BICARBONATE 21.6 MEQ/L (21.0-32.0); CALCIUM 9.2 MG/DL (8.5-10.1); CREATININE 2.88 MG/DL (0.60-1.30); PHOSPHORUS 3.9 MG/DL (2.5-4.9)
[2017-08-29 08:00] VITALS: BP 93/59; PULSE 89; RESP 16; TEMP 98.2; O2SAT 94
[2017-08-29] MEDS: GABAPENTIN 400 MG CAP PO SCH ×2 (08:05→20:59)
[2017-08-29] MEDS: MULTIVITAMIN TAB PO SCH (08:06)
[2017-08-29] MEDS: PANTOPRAZOLE SOD 20 MG DELAYED RELEASE TAB PO SCH (08:06)
[2017-08-29] MEDS: ALLOPURINOL 300 MG TAB PO SCH (08:06)
[2017-08-29] MEDS: DOCUSATE SODIUM 100 MG CAP PO SCH ×2 (08:06→20:59)
[2017-08-29] MEDS: SODIUM CHLORIDE 0.9% FLUSH 10 ML FLUSH IV FLUSH SCH ×2 (09:00→21:02)
[2017-08-29] MEDS: CARVEDILOL 6.25 MG TAB PO SCH ×2 (09:00→20:58)
[2017-08-29] MEDS: MAGNESIUM HYDROXIDE SUSP 30 ML CUP PO SCH ×2 (09:00→20:58)
[2017-08-29] MEDS: SODIUM CHLOR 0.9% 1000 ML INJ 1,000 ML IV SCH ×2 (09:30→17:01)
--- NOTE | 2017-08-29 09:35 | HHI.NPPN ---
Subjective History of Present Illness 72-year-old male with a history of severe degenerative disease of the spine with a history of multiple back surgeries and lumbar stenosis. 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 Apparently the patient was receiving vancomycin from August 22 subsequently discontinued secondary to worsening renal function. He is currently on Cipro and daptomycin which was started on 27 August 2017. Patient's creatinine level was noted to have been 0.6 to August 23, 2017 subsequently rising to a level of 2.39 date of consultation. Of interest patient also was experiencing hypotension from August 24 until August 26, 2017. His furosemide was discontinued today. At time of consultation he was on lisinopril as well as Dyazide. Also on Protonix. Patient indicated early in the admission he did have a poor appetite. No previous history of CKD. Interval History Pt says he is feeling OK today. No specific complaints. (Gina Jim) Review of Systems General General Remarks Negative complaints besides back pain (Gina Jim) Musculoskeletal MS: Pain/Stiffness (Gina Jim) Objective Data Data Vital Signs Date Time Temp Pulse Resp B/P (MAP) Pulse Ox O2 Delivery O2 Flow Rate FiO2 08/29/17 08:00 98.2 89 16 93/59 (70) 94 08/28/17 16:00 96.9 88 18 98/61 (73) 98 08/28/17 12:00 96.1 80 18 108/66 (80) 98 (Gina Jim) -: 08/28/17 1023 08/29/17 0655 Imaging Last Impressions Renal Ultrasound 08/27/17 0000 Signed Impressions: Service Date/Time: Sunday, August 27, 2017 17:45 - CONCLUSION: 1. No evidence hydronephrosis. 2. Complex cystic or solid mass in the lower pole the right kidney and complexes at mass in the midpole of the right kidney. 3. Possible punctate nonobstructing calculus in the left kidney. Maicol Sandoval MD Chest X-Ray 08/27/17 0000 Signed Impressions: Service Date/Time: Sunday, August 27, 2017 13:32 - CONCLUSION: Left-sided PICC line tip at the cavoatrial junction. Maicol Sandoval MD Medication Review Current Medications Medications (Trade) Dose Ordered Sig/Samia Route Start Time Stop Time Status Last Admin (NS Flush) 2 ml UNSCH PRN IV FLUSH 08/22/17 17:00 (NS Flush) 2 ml BID IV FLUSH 08/22/17 21:00 08/28/17 20:43 (Zofran Inj) 4 mg Q6H PRN IV PUSH 08/22/17 17:00 08/26/17 22:43 (Colace) 100 mg BID PO 08/23/17 21:00 08/29/17 08:06 (Dulcolax Supp) 10 mg DAILY PRN RECTAL 08/22/17 17:00 08/26/17 08:56 (Fleets Enema (Adult)) 133 ml DAILY PRN MO 08/22/17 17:00 Sodium Chloride 1,000 ml @ 125 mls/hr Q8H IV 08/22/17 17:30 08/28/17 01:49 (Zyloprim) 300 mg DAILY PO 08/23/17 09:00 08/29/17 08:06 (Coreg) 6.25 mg BID PO 08/23/17 09:00 08/28/17 07:47 (Protonix) 20 mg DAILY PO 08/23/17 09:00 08/29/17 08:06 (Theragran) 1 tab DAILY PO 08/23/17 09:00 08/29/17 08:06 (Flexeril) 10 mg Q8H PRN PO 08/23/17 07:45 08/29/17 05:40 (Morphine Inj) 2 mg Q4H PRN IV PUSH 08/24/17 08:00 ([place] 10-325 Mg) 1 tab Q4H PRN PO 08/24/17 08:00 08/29/17 08:12 (Ciloxan 0.3% Opth Oint) 1 applic Q8HR EACH EYE 08/25/17 16:00 08/29/17 05:56 (Milk Of Magnesia Liq) 30 ml Q12HR PO 08/25/17 21:00 08/28/17 20:43 (Proamatine) 5 mg TID@07,12,17 PRN PO 08/26/17 09:00 Daptomycin 1000 mg/Sodium Chloride 100 ml @ 200 mls/hr Q24H IV 08/27/17 13:00 08/28/17 13:33 (Neurontin) 400 mg BID PO 08/28/17 09:00 08/29/17 08:05 (Gina Jim) Physical Exam General Appearance: No Acute Distress, Comfortable (Gina Jim) Eyes Eye Exam: Pupils Equal (Gina Jim) Throat Throat Exam: Oral Mucosa [place] & Moist (Gina Jim) Pulmonary Resp Exam: Clear Bilaterally, Breath Sounds Equal (Gian Jim) Cardiology CV Exam: Regular, Normal Sinus Rhythm (Gina Jim) Gastrointestinal/Abdomen GI Exam: Soft, Non-Tender (Gina Jim) Genitourinary Exam: Clear Urine (Gina Jim) Integumentary Skin Exam: Clear, Warm (Gina Jim) Extremeties Extremities Exam: No Edema (Gina Jim) Neurologic Neuro Exam: Alert, Awake, Oriented (Gina Jim) Psychiatric Psych Exam: Appropriate Responses (Gina Jim) Assessment/Plan Problem List: (1) Acute kidney insufficiency ICD Codes: N28.9 - Disorder of kidney and ureter, unspecified Status: Acute Plan: Renal functions deteriorated aqain---appears he has sustained ATN related to hypotension and Vancomycin toxicity. IV not running and patient says they have tried to flush it and not working. Reports he is drinking about "5 jugs of water daily". Would like to see IVF resumed. Continue to monitor I&Os closely. K+ mildly elevated. Start po bicarb and place of low K+ diet Consideration to be given to D/C Protonix as this can be associated with AIN with utilization of Zantac instead. Renal US discussed with the patient. Has 2 complex lesions on right kidney. States he is well aware of these and is under the care of Dr. Gerald Pettit. 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 Advised importance of f/u with urology as outpatient. Medications should be adjusted for the patient's estimated GFR if clinically indicated. Avoid agents with significant potential for nephrotoxicity possible including NSAIDs for analgesia, iodine contrast agents. Gadolinium is contraindicated if the GFR is below 30. (2) Hypotension ICD Codes: I95.9 - Hypotension, unspecified Status: Acute Plan: Continue IV hydration. Lasix has been held On PRN Midodrine (3) Lumbar spinal stenosis ICD Codes: M48.061 - Spinal stenosis, lumbar region without neurogenic claudication (4) HTN (hypertension) ICD Codes: I10 - Essential (primary) hypertension (5) Anemia ICD Codes: D64.9 - Anemia, unspecified Plan: Hgb trending downwards and Fe stores low. Discussed with primary who is planning on ordering 1U transfusion today. Will order FOBT Of interest, states he had a bone marrow biopsy done sometime last year by a physician at [facility]. Reports all findings were normal. Will try to obtain records. (Gina Jim) Plan Unfortunately patient's creatinine level continues to rise. was by the bedside and I discussed with them both the current status of his renal insufficiency and its progression. Hopefully the creatinine level plateau prior to the need for renal replacement therapy as discussed with them. The exam, history, and the medical decision-making described in the above note were completed with the assistance of the PATiffani. I reviewed and agree with the findings presented. I attest that I had a [id number] encounter with the patient on the same day, and personally performed and documented my assessment and findings in the medical record. (Benjy Oh MD) Gina Jim Aug 29, 2017 09:35 Benjy Oh MD Aug 29, 2017 12:27
[2017-08-29] MEDS: SODIUM BICARBONATE 650 MG TAB PO SCH ×2 (09:45→20:59)
[2017-08-29 12:00] VITALS: BP 93/68; PULSE 91; RESP 18; TEMP 97.3; O2SAT 95
[2017-08-29] MEDS: DAPTOmycin INJ 1,000 MG in SODIUM CHLORIDE 0.9% INJ 100 ML IV SCH (12:29)
[2017-08-29] MEDS ORDERED: ALTEPLASE RECOMBINANT 2 MG VIAL INTRACATH ONE (12:45)
--- NOTE | 2017-08-29 13:20 | HHI.IDPN ---
Subjective Subjective Remarks is a 72 y/o CM who underwent bilateral hemilaminectomies at L3-S1 in February of 2017. Patient reports this is his 4th surgery but he has had no hardware to date. He reports he initially had significant improvement in his radicular symptoms, however, he developed a large fluid collection requiring drainage in March. Subsequently, he developed recurrent symptoms and early May with imaging demonstrating a recurrent disc herniation requiring revision bilateral hemilaminectomies at L3-L5 by Dr. Beaulieu. Postoperatively , he had significant improvement in his symptoms for only 2 weeks with recurrent radiculopathy and neurogenic medications symptoms. Repeat imaging at the beginning of July demonstrated a recurrent disc herniation at L4-5 along with significant central and foraminal stenosis at L3-4 and foraminal stenosis at L5-S1. Options of management were discussed with the patient. Summary of his surgeries in 2017 to date: 03/06/2017: L3-S1 bilateral hemilaminectomy, foraminotomy, partial facetectomy, decompression of nerve roots 04/17/2017: L-spine incision and drainage, drainage of seroma. Cultures intraoperatively with no growth. No antibiotics appear to be have prescribed on discharge. 06/21/2017: L3-L5 bilateral decompression, hemilaminectomy, foraminotomy, partial facetectomy, decompression with reexploration 08/23/2017: Right revision laminectomies with partial facetectomies L3-4, L4-5 and L5-S1, Left revision laminectomies with partial facetectomies L3-4, L4-5 and L5-S1, Incision and drainage lumbar abscess. Intraop cultures positive for Coag neg staph. Pertinent positives and negatives: denies B/B incontinence denies fever, chills or night sweats Reports anorexia and weight loss. Has perineal sensation. Defers rectal exam due to significant pain. No paresthesias or focal neuro deficit in LEs. Infectious disease is consulted for evaluation and management of coag-negative staphylococcus lumbar abscess possible osteomyelitis. Past Medical History Gastric ulcers Right renal mass Hyperglycemia Gout Osteoarthritis of the hip Hypertension Spinal stenosis since 2015 status post multiple surgeries Impotence Idiopathic peripheral neuropathy Obesity Past Surgical History 03/06/2017: L3-S1 bilateral hemilaminectomy, foraminotomy, partial facetectomy, decompression of nerve roots 04/17/2017: L-spine incision and drainage, drainage of seroma. Cultures intraoperatively with no growth. No antibiotics appear to be have prescribed on discharge. 06/21/2017: L3-L5 bilateral decompression, hemilaminectomy, foraminotomy, partial facetectomy, decompression with reexploration 08/23/2017: Right revision laminectomies with partial facetectomies L3-4, L4-5 and L5-S1, Left revision laminectomies with partial facetectomies L3-4, L4-5 and L5-S1, Incision and drainage lumbar abscess. Intraop cultures positive for Coag neg staph. Bilateral hernia repair EGD Colonoscopy Overnight events reviewed Left Eye much improved. No fever No rash No diarrhea UO 1000 ml d/w Nephrology: observe trend possibly may peak and then improve. reports patient seeing things sometimes. Antibiotics Vanco IV Lines Line sites with no e.o infection Past Medical History Gastric ulcers Right renal mass Hyperglycemia Gout Osteoarthritis of the hip Hypertension Spinal stenosis since 2014 status post multiple surgeries Impotence Idiopathic peripheral neuropathy Obesity Past Surgical History 03/06/2017: L3-S1 bilateral hemilaminectomy, foraminotomy, partial facetectomy, decompression of nerve roots 04/17/2017: L-spine incision and drainage, drainage of seroma. Cultures intraoperatively with no growth. No antibiotics appear to be have prescribed on discharge. 06/21/2017: L3-L5 bilateral decompression, hemilaminectomy, foraminotomy, partial facetectomy, decompression with reexploration 08/23/2017: Right revision laminectomies with partial facetectomies L3-4, L4-5 and L5-S1, Left revision laminectomies with partial facetectomies L3-4, L4-5 and L5-S1, Incision and drainage lumbar abscess. Intraop cultures positive for Coag neg staph. Bilateral hernia repair EGD Colonoscopy Allergies: Coded Allergies: No Known Allergies (Verified Allergy, Unknown, 08/22/17) Objective . Vital Signs Date Time Temp Pulse Resp B/P (MAP) Pulse Ox O2 Delivery O2 Flow Rate FiO2 08/29/17 12:00 97.3 91 18 93/68 (76) 95 08/29/17 08:00 98.2 89 16 93/59 (70) 94 08/28/17 16:00 96.9 88 18 98/61 (73) 98 . Laboratory Tests Test 08/28/17 06:55 08/28/17 10:23 White Blood Count 8.7 TH/MM3 8.5 TH/MM3 Red Blood Count 2.63 MIL/MM3 2.63 MIL/MM3 Hemoglobin 7.7 GM/DL 8.0 GM/DL Hematocrit 23.8 % 23.9 % Mean Corpuscular Volume 90.7 FL 91.0 FL Mean Corpuscular Hemoglobin 29.4 PG 30.3 PG Mean Corpuscular Hemoglobin Concent 32.4 % 33.3 % Red Cell Distribution Width 17.6 % 17.5 % Platelet Count 278 TH/MM3 273 TH/MM3 Mean Platelet Volume 8.1 FL 8.2 FL Neutrophils (%) (Auto) 67.1 % 65.1 % Lymphocytes (%) (Auto) 19.3 % 18.8 % Monocytes (%) (Auto) 8.1 % 9.7 % Eosinophils (%) (Auto) 5.0 % 5.7 % Basophils (%) (Auto) 0.5 % 0.7 % Neutrophils # (Auto) 5.8 TH/MM3 5.5 TH/MM3 Lymphocytes # (Auto) 1.7 TH/MM3 1.6 TH/MM3 Monocytes # (Auto) 0.7 TH/MM3 0.8 TH/MM3 Eosinophils # (Auto) 0.4 TH/MM3 0.5 TH/MM3 Basophils # (Auto) 0.0 TH/MM3 0.1 TH/MM3 CBC Comment DIFF FINAL DIFF FINAL Differential Comment Laboratory Tests Test 08/27/17 13:51 08/28/17 06:30 08/29/17 06:55 Total Creatine Kinase 28 U/L Blood Urea Nitrogen 30 MG/DL 36 MG/DL Creatinine 2.65 MG/DL 2.88 MG/DL Random Glucose 97 MG/DL 103 MG/DL Albumin 2.0 GM/DL 2.1 GM/DL Calcium Level 8.8 MG/DL 9.2 MG/DL Phosphorus Level 3.7 MG/DL 3.9 MG/DL Sodium Level 138 MEQ/L 137 MEQ/L Potassium Level 4.6 MEQ/L 5.2 MEQ/L Chloride Level 108 MEQ/L 108 MEQ/L Carbon Dioxide Level 21.0 MEQ/L 21.6 MEQ/L Anion Gap 9 MEQ/L 7 MEQ/L Estimat Glomerular Filtration Rate 24 ML/MIN 22 ML/MIN Iron Level 19 MCG/DL Total Iron Binding Capacity 256 MCG/DL Percent Iron Saturation 7.4 % Ferritin 66 NG/ML 25-Hydroxy Vitamin D Total 17.0 ng/ML Imaging Last Impressions Renal Ultrasound 08/27/17 0000 Signed Impressions: Service Date/Time: Sunday, August 27, 2017 17:45 - CONCLUSION: 1. No evidence hydronephrosis. 2. Complex cystic or solid mass in the lower pole the right kidney and complexes at mass in the midpole of the right kidney. 3. Possible punctate nonobstructing calculus in the left kidney. Maicol Sandoval MD Chest X-Ray 08/27/17 0000 Signed Impressions: Service Date/Time: Sunday, August 27, 2017 13:32 - CONCLUSION: Left-sided PICC line tip at the cavoatrial junction. Maicol Sandoval MD Physical Exam GENERAL: This is a well-nourished, well-developed patient, in no apparent distress. SKIN: No rashes, ecchymoses or lesions. Cool and dry. HEAD: Atraumatic. Normocephalic. No temporal or scalp tenderness. EYES: Pupils equal round and reactive. Extraocular motions intact. No scleral icterus. No injection or drainage. ENT: Nose without bleeding, purulent drainage or septal hematoma. Throat without erythema, tonsillar hypertrophy or exudate. Uvula midline. Airway patent. NECK: Trachea midline. Supple, nontender, no meningeal signs. CARDIOVASCULAR: Regular rate and rhythm without murmurs, gallops, or rubs. RESPIRATORY: Clear to auscultation. Breath sounds equal bilaterally. No wheezes , rales, or rhonchi. GASTROINTESTINAL: Abdomen soft, non-tender, nondistended. MUSCULOSKELETAL: Extremities without clubbing, cyanosis, or edema. No joint tenderness, effusion, or edema noted. No calf tenderness. Negative Homans sign bilaterally. Wiggles his toes. Surgical site ok. NEUROLOGICAL: Awake and alert. Non focal exam. Psych cooperative IV line sites with no e.o infection. 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 No hardware in place. Coag neg staph spinal abscess. Staph Lugdenensis spinal abscess Lumbar stenosis with radiculopathy with significant pain. Multiple spinal surgeries in 2017. Left eyebrow cellulitis/conjunctivitis Recs: Continue Dapto IV. Continue Cipro gtt. Appreciate nephrology recs. Follow Cr trends. Urine eosinophils negative. Follow clinically. d/w pt. Marla Culp MD Aug 29, 2017 13:20
--- NOTE | 2017-08-29 13:29 | PD.ORT.PN ---
Subjective Subjective Remarks Patient resting comfortably. Denies any headaches or nausea. Denies shortness of breath or chest pain. Reports he was able to sit and bed to chair for approximately 30 minutes today Objective Vitals Vital Signs Date Time Temp Pulse Resp B/P (MAP) Pulse Ox O2 Delivery O2 Flow Rate FiO2 08/29/17 12:00 97.3 91 18 93/68 (76) 95 08/29/17 08:00 98.2 89 16 93/59 (70) 94 08/28/17 16:00 96.9 88 18 98/61 (73) 98 I/O 08/28/17 08/28/17 08/28/17 08/29/17 08/29/17 08/29/17 07:00 15:00 23:00 07:00 15:00 23:00 Intake Total 1197 ml Output Total 450 ml 1000 ml Balance 747 ml -1000 ml Intake Oral 720 ml IV Total 477 ml Output Urine Total 450 ml 1000 ml # Bowel Movements 0 Result Diagram: 08/28/17 1023 08/29/17 0655 Objective Remarks Awake, alert, no acute distress. Nonlabored respirations Bilateral lower extremities: 5 out of 5 strength throughout hip flexors, quads, hamstrings, tib ant, gastrocs, EHL and FHL. Sensation intact. Brisk cap refill Assessment & Plan Assessment and Plan 72-year-old man now postop day 7 status post revision bilateral L3 4, L4 5 and L5-S1 laminectomies. Concern for purulence Intra-Op and therefore hardware placement was aborted and only decompression performed. Small intraoperative dural leak. 1. Patient should be mobilizing out of bed 1-2 times daily with brace on. I discussed with the patient that I understand he does have back pain but he needs to work through it and needs to be able to mobilize to chair. 2. No chemical anticoagulation. DVT prophylaxis with SCDs/MONTSERRAT hose 3. Intraoperative cultures show Staphylococcus Lugadensis. Appreciate ID assistance. Given positive cultures, I will not be able to place hardware in the next several weeks. I discussed with the patient that it will likely be at least 2-3 months before we are able to place hardware. He will require brace when he is out of bed. He will require likely 6-8 weeks of IV antibiotics prior to any type of consideration for hardware placement. Patient with elevated creatinine and therefore has been switched off of Vanc 4. Hemoglobin is approximately 8.0 without apparent symptoms currently. Will monitor 5. Given his elevated creatinine and nephrology is following, I will allow them to determine when his Martin should be removed. 6. Discharge to rehabilitation once creatinine improved . Jessica Stubbs MD Aug 29, 2017 13:29
--- NOTE | 2017-08-29 16:26 | HHI.PR ---
Subjective Remarks Patient is donig well, happy, no complaints. He has anemia, but is asymptomatic due to being in bed all day. Objective Vitals Vital Signs Date Time Temp Pulse Resp B/P (MAP) Pulse Ox O2 Delivery O2 Flow Rate FiO2 08/29/17 12:00 97.3 91 18 93/68 (76) 95 08/29/17 08:00 98.2 89 16 93/59 (70) 94 I/O 08/28/17 08/28/17 08/28/17 08/29/17 08/29/17 08/29/17 07:00 15:00 23:00 07:00 15:00 23:00 Intake Total 1197 ml Output Total 450 ml 1000 ml Balance 747 ml -1000 ml Intake Oral 720 ml IV Total 477 ml Output Urine Total 450 ml 1000 ml # Bowel Movements 0 Result Diagram: 08/28/17 1023 08/29/17 0655 Objective Remarks GENERAL: Well-nourished, well-developed patient. SKIN: Warm and dry. HEAD: Normocephalic. EYES: No scleral icterus. No injection or drainage. NECK: Supple, trachea midline. No JVD or lymphadenopathy. CARDIOVASCULAR: Regular rate and rhythm without murmurs, gallops, or rubs. RESPIRATORY: Breath sounds equal bilaterally. No accessory muscle use. GASTROINTESTINAL: Abdomen soft, non-tender, nondistended. BACK: Tender at surgical site. EXTREMITIES: no significant edema A/P Problem List: (1) Lumbar post-laminectomy syndrome ICD Code: M96.1 - Postlaminectomy syndrome, not elsewhere classified (2) Lumbar spinal stenosis ICD Code: M48.061 - Spinal stenosis, lumbar region without neurogenic claudication (3) HTN (hypertension) ICD Code: I10 - Essential (primary) hypertension (4) History of gout ICD Code: Z87.39 - Personal history of other diseases of the musculoskeletal system and connective tissue (5) S/P lumbar laminectomy ICD Code: Z98.890 - Other specified postprocedural states Assessment and Plan Acute Renal Insufficiency Etilogy is unclear, most likely vancomycin Will transfuse 1 unit of PRBC to assist with metabolic perfusion Revision bilateral L3,4,5,S1 laminectomies Surgery performed 08/22/17 Hypotension History of hypertension Stable, continue Coreg Midodrine provided PRN for any recurrence of hypotension on an as-needed basis Parameters placed on lisinopril and triamterene/hydrochlorothiazide Spinal infection Colonization vs chronic infection Cultures show christine-sensitive staph L. Surgery following Gout Continue allopurinol DVT prophylaxis Anticoagulation at discretion of surgeon Eduin Burris MD Aug 29, 2017 16:26
[2017-08-29] MEDS ORDERED: SODIUM CHLOR 0.9% 250 ML INJ 250 ML IV ONE (16:30)
[2017-08-29 16:36] VITALS: BP 109/62; PULSE 83; RESP 18; TEMP 97.4; O2SAT 93
[2017-08-29] MEDS: ERGOCALCIFEROL (VIT D2) 50,000 UNIT CAP PO SCH ×2 (18:00→20:59)
[2017-08-29 20:00] VITALS: BP 103/60; PULSE 83; RESP 15; TEMP 98.2; O2SAT 96
[2017-08-29 20:23] LABS: BICARBONATE 23.1 MEQ/L (21.0-32.0); CALCIUM 9.4 MG/DL (8.5-10.1); CREATININE 2.85 MG/DL (0.60-1.30)
[2017-08-29] MEDS: ONDANSETRON HCL 4 MG/2 ML VIAL IV PUSH PRN (23:05)
[2017-08-30] VITALS: BP 100/62; PULSE 82; RESP 15; TEMP 98.4; O2SAT 95
[2017-08-30] MEDS: SODIUM CHLOR 0.9% 1000 ML INJ 1,000 ML IV SCH ×3 (01:30→17:30)
[2017-08-30] MEDS: CIPROFLOXACIN 0.3% OPTH OINT 3.5 GM TUBO EACH EYE SCH ×3 (06:00→19:46)
[2017-08-30] MEDS: ACETAMINOPHEN/HYDROcodone 325 MG/10 MG TAB PO PRN ×4 (06:11→19:44)
[2017-08-30 07:22] LABS: HEMATOCRIT 22.8 % (39.0-51.0); HEMOGLOBIN 7.6 GM/DL (13.0-17.0); MEAN CELL VOLUME 91.1 FL (80.0-100.0); MEAN CORPUSCULAR HEMOGLOBIN 30.3 PG (27.0-34.0); MEAN CORPUSCULAR HGB CONC 33.2 % (32.0-36.0); MEAN PLATELET VOLUME 8.4 FL (7.0-11.0); PLATELET COUNT 279 TH/MM3 (150-450); RED CELL DISTRIBUTION WIDTH 17.3 % (11.6-17.2); WHITE BLOOD COUNT 7.5 TH/MM3 (4.0-11.0)
[2017-08-30 07:26] LABS: ALBUMIN 2.1 GM/DL (3.4-5.0); BICARBONATE 23.1 MEQ/L (21.0-32.0); CALCIUM 9.2 MG/DL (8.5-10.1); CREATININE 2.89 MG/DL (0.60-1.30); PHOSPHORUS 4.2 MG/DL (2.5-4.9)
[2017-08-30 08:00] VITALS: BP 119/68; PULSE 80; RESP 18; TEMP 98.1; O2SAT 94
[2017-08-30] MEDS: DOCUSATE SODIUM 100 MG CAP PO SCH ×2 (08:06→19:44)
[2017-08-30] MEDS: SODIUM BICARBONATE 650 MG TAB PO SCH ×2 (08:06→19:43)
[2017-08-30] MEDS: PANTOPRAZOLE SOD 20 MG DELAYED RELEASE TAB PO SCH (08:06)
[2017-08-30] MEDS: CARVEDILOL 6.25 MG TAB PO SCH ×2 (08:06→19:44)
[2017-08-30] MEDS: GABAPENTIN 400 MG CAP PO SCH ×2 (08:06→19:44)
[2017-08-30] MEDS: MULTIVITAMIN TAB PO SCH (08:06)
[2017-08-30] MEDS: MAGNESIUM HYDROXIDE SUSP 30 ML CUP PO SCH ×2 (08:06→19:44)
[2017-08-30] MEDS: ALLOPURINOL 300 MG TAB PO SCH (08:06)
[2017-08-30] MEDS: SODIUM CHLORIDE 0.9% FLUSH 10 ML FLUSH IV FLUSH SCH ×2 (09:00→19:44)
[2017-08-30] MEDS: CYCLOBENZAPRINE HCL 10 MG TAB PO PRN ×2 (11:01→19:43)
[2017-08-30 12:00] VITALS: BP 113/71; PULSE 84; RESP 18; TEMP 96.8; O2SAT 96
[2017-08-30] MEDS: DAPTOmycin INJ 1,000 MG in SODIUM CHLORIDE 0.9% INJ 100 ML IV SCH (13:00)
[2017-08-30 16:00] VITALS: BP 105/72; PULSE 79; RESP 18; TEMP 97.6; O2SAT 94
--- NOTE | 2017-08-30 17:05 | HHI.PR ---
Subjective Remarks Pt is in his chair today, admits to feeling stiff in the shoulders and legs, but is eager to progress. He otherwise has no complaints. Objective Vitals Vital Signs Date Time Temp Pulse Resp B/P (MAP) Pulse Ox O2 Delivery O2 Flow Rate FiO2 08/30/17 12:00 96.8 84 18 113/71 (85) 96 08/30/17 08:00 98.1 80 18 119/68 (85) 94 08/30/17 00:00 98.4 82 15 100/62 (75) 95 08/29/17 20:00 98.2 83 15 103/60 (74) 96 I/O 08/29/17 08/29/17 08/29/17 08/30/17 08/30/17 08/30/17 07:00 15:00 23:00 07:00 15:00 23:00 Intake Total 800 ml 240 ml Output Total 600 ml 500 ml Balance 200 ml -260 ml Intake Oral 800 ml 240 ml Output Urine Total 600 ml 500 ml # Bowel Movements 0 0 Result Diagram: 08/30/1761708/30/17617 Objective Remarks GENERAL: Well-nourished, well-developed patient. SKIN: Warm and dry. HEAD: Normocephalic. EYES: No scleral icterus. No injection or drainage. NECK: Supple, trachea midline. No JVD or lymphadenopathy. CARDIOVASCULAR: Regular rate and rhythm without murmurs, gallops, or rubs. RESPIRATORY: Breath sounds equal bilaterally. No accessory muscle use. GASTROINTESTINAL: Abdomen soft, non-tender, nondistended. BACK: Tender at surgical site. EXTREMITIES: no significant edema A/P Problem List: (1) Lumbar post-laminectomy syndrome ICD Code: M96.1 - Postlaminectomy syndrome, not elsewhere classified (2) Lumbar spinal stenosis ICD Code: M48.061 - Spinal stenosis, lumbar region without neurogenic claudication (3) HTN (hypertension) ICD Code: I10 - Essential (primary) hypertension (4) History of gout ICD Code: Z87.39 - Personal history of other diseases of the musculoskeletal system and connective tissue (5) S/P lumbar laminectomy ICD Code: Z98.890 - Other specified postprocedural states Assessment and Plan Acute Renal Insufficiency Etilogy is unclear, most likely vancomycin Following Creatinine trend, thus far remaining under 3.0 Revision bilateral L3,4,5,S1 laminectomies Surgery performed 08/22/17 Hypotension History of hypertension Stable, continue Coreg Midodrine provided PRN Parameters placed on lisinopril and triamterene/hydrochlorothiazide Spinal infection Colonization vs chronic infection Cultures show christine-sensitive staph L. Surgery following Gout Continue allopurinol DVT prophylaxis Anticoagulation at discretion of surgeon Discharge Planning May be appropriate for SNF-Rehab soon, but current concern is renal function Eduin Burris MD Aug 30, 2017 17:05
--- NOTE | 2017-08-30 17:39 | HHI.IDPN ---
Subjective Subjective Remarks is a 72 y/o CM who underwent bilateral hemilaminectomies at L3-S1 in February of 2017. Patient reports this is his 4th surgery but he has had no hardware to date. He reports he initially had significant improvement in his radicular symptoms, however, he developed a large fluid collection requiring drainage in March. Subsequently, he developed recurrent symptoms and early May with imaging demonstrating a recurrent disc herniation requiring revision bilateral hemilaminectomies at L3-L5 by Dr. Beaulieu. Postoperatively , he had significant improvement in his symptoms for only 2 weeks with recurrent radiculopathy and neurogenic medications symptoms. Repeat imaging at the beginning of July demonstrated a recurrent disc herniation at L4-5 along with significant central and foraminal stenosis at L3-4 and foraminal stenosis at L5-S1. Options of management were discussed with the patient. Summary of his surgeries in 2017 to date: 03/06/2017: L3-S1 bilateral hemilaminectomy, foraminotomy, partial facetectomy, decompression of nerve roots 04/17/2017: L-spine incision and drainage, drainage of seroma. Cultures intraoperatively with no growth. No antibiotics appear to be have prescribed on discharge. 06/21/2017: L3-L5 bilateral decompression, hemilaminectomy, foraminotomy, partial facetectomy, decompression with reexploration 08/23/2017: Right revision laminectomies with partial facetectomies L3-4, L4-5 and L5-S1, Left revision laminectomies with partial facetectomies L3-4, L4-5 and L5-S1, Incision and drainage lumbar abscess. Intraop cultures positive for Coag neg staph. Pertinent positives and negatives: denies B/B incontinence denies fever, chills or night sweats Reports anorexia and weight loss. Has perineal sensation. Defers rectal exam due to significant pain. No paresthesias or focal neuro deficit in LEs. Infectious disease is consulted for evaluation and management of coag-negative staphylococcus lumbar abscess possible osteomyelitis. Past Medical History Gastric ulcers Right renal mass Hyperglycemia Gout Osteoarthritis of the hip Hypertension Spinal stenosis since 2015 status post multiple surgeries Impotence Idiopathic peripheral neuropathy Obesity Past Surgical History 03/06/2017: L3-S1 bilateral hemilaminectomy, foraminotomy, partial facetectomy, decompression of nerve roots 04/17/2017: L-spine incision and drainage, drainage of seroma. Cultures intraoperatively with no growth. No antibiotics appear to be have prescribed on discharge. 06/21/2017: L3-L5 bilateral decompression, hemilaminectomy, foraminotomy, partial facetectomy, decompression with reexploration 08/23/2017: Right revision laminectomies with partial facetectomies L3-4, L4-5 and L5-S1, Left revision laminectomies with partial facetectomies L3-4, L4-5 and L5-S1, Incision and drainage lumbar abscess. Intraop cultures positive for Coag neg staph. Bilateral hernia repair EGD Colonoscopy Overnight events reviewed Left Eye much improved. No fever No rash No diarrhea UO 650 cc d/w : lasix held, bld transfusion given. Antibiotics Dapto IV Lines Line sites with no e.o infection Past Medical History Gastric ulcers Right renal mass Hyperglycemia Gout Osteoarthritis of the hip Hypertension Spinal stenosis since 2014 status post multiple surgeries Impotence Idiopathic peripheral neuropathy Obesity Past Surgical History 03/06/2017: L3-S1 bilateral hemilaminectomy, foraminotomy, partial facetectomy, decompression of nerve roots 04/17/2017: L-spine incision and drainage, drainage of seroma. Cultures intraoperatively with no growth. No antibiotics appear to be have prescribed on discharge. 06/21/2017: L3-L5 bilateral decompression, hemilaminectomy, foraminotomy, partial facetectomy, decompression with reexploration 08/23/2017: Right revision laminectomies with partial facetectomies L3-4, L4-5 and L5-S1, Left revision laminectomies with partial facetectomies L3-4, L4-5 and L5-S1, Incision and drainage lumbar abscess. Intraop cultures positive for Coag neg staph. Bilateral hernia repair EGD Colonoscopy Allergies: Coded Allergies: No Known Allergies (Verified Allergy, Unknown, 08/22/17) Objective . Vital Signs Date Time Temp Pulse Resp B/P (MAP) Pulse Ox O2 Delivery O2 Flow Rate FiO2 08/30/17 16:00 97.6 79 18 105/72 (83) 94 08/30/17 12:00 96.8 84 18 113/71 (85) 96 08/30/17 08:00 98.1 80 18 119/68 (85) 94 08/30/17 00:00 98.4 82 15 100/62 (75) 95 08/29/17 20:00 98.2 83 15 103/60 (74) 96 08/30/17 08/30/17 08/31/17 15:00 23:00 07:00 Intake Total 600 ml Output Total 650 ml Balance -50 ml Intake Oral 600 ml Output Urine Total 650 ml # Bowel Movements 0 . Laboratory Tests Test 08/30/17 06:18 White Blood Count 7.5 TH/MM3 Red Blood Count 2.50 MIL/MM3 Hemoglobin 7.6 GM/DL Hematocrit 22.8 % Mean Corpuscular Volume 91.1 FL Mean Corpuscular Hemoglobin 30.3 PG Mean Corpuscular Hemoglobin Concent 33.2 % Red Cell Distribution Width 17.3 % Platelet Count 279 TH/MM3 Mean Platelet Volume 8.4 FL Laboratory Tests Test 08/29/17 06:55 08/29/17 19:49 08/30/17 06:18 Blood Urea Nitrogen 36 MG/DL 38 MG/DL 39 MG/DL Creatinine 2.88 MG/DL 2.85 MG/DL 2.89 MG/DL Random Glucose 103 MG/DL 103 MG/DL 92 MG/DL Albumin 2.1 GM/DL 2.1 GM/DL Calcium Level 9.2 MG/DL 9.4 MG/DL 9.2 MG/DL Phosphorus Level 3.9 MG/DL 4.2 MG/DL Sodium Level 137 MEQ/L 135 MEQ/L 135 MEQ/L Potassium Level 5.2 MEQ/L 5.2 MEQ/L 5.2 MEQ/L Chloride Level 108 MEQ/L 105 MEQ/L 106 MEQ/L Carbon Dioxide Level 21.6 MEQ/L 23.1 MEQ/L 23.1 MEQ/L Anion Gap 7 MEQ/L 7 MEQ/L 6 MEQ/L Estimat Glomerular Filtration Rate 22 ML/MIN 22 ML/MIN 22 ML/MIN Imaging Last Impressions Renal Ultrasound 08/27/17 0000 Signed Impressions: Service Date/Time: Sunday, August 27, 2017 17:45 - CONCLUSION: 1. No evidence hydronephrosis. 2. Complex cystic or solid mass in the lower pole the right kidney and complexes at mass in the midpole of the right kidney. 3. Possible punctate nonobstructing calculus in the left kidney. Maicol Sandoval MD Chest X-Ray 08/27/17 0000 Signed Impressions: Service Date/Time: Sunday, August 27, 2017 13:32 - CONCLUSION: Left-sided PICC line tip at the cavoatrial junction. Maicol Sandoval MD Physical Exam GENERAL: This is a well-nourished, well-developed patient, in no apparent distress. SKIN: No rashes, ecchymoses or lesions. Cool and dry. HEAD: Atraumatic. Normocephalic. No temporal or scalp tenderness. EYES: Pupils equal round and reactive. Extraocular motions intact. No scleral icterus. No injection or drainage. ENT: Nose without bleeding, purulent drainage or septal hematoma. Throat without erythema, tonsillar hypertrophy or exudate. Uvula midline. Airway patent. NECK: Trachea midline. Supple, nontender, no meningeal signs. CARDIOVASCULAR: Regular rate and rhythm without murmurs, gallops, or rubs. RESPIRATORY: Clear to auscultation. Breath sounds equal bilaterally. No wheezes , rales, or rhonchi. GASTROINTESTINAL: Abdomen soft, non-tender, nondistended. MUSCULOSKELETAL: Extremities without clubbing, cyanosis, or edema. No joint tenderness, effusion, or edema noted. No calf tenderness. Negative Homans sign bilaterally. Wiggles his toes. Surgical site ok. NEUROLOGICAL: Awake and alert. Non focal exam. Psych cooperative IV line sites with no e.o infection. 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 No hardware in place. Coag neg staph spinal abscess. Staph Lugdenensis spinal abscess Lumbar stenosis with radiculopathy with significant pain. Multiple spinal surgeries in 2017. Left eyebrow cellulitis/conjunctivitis Recs: Continue Dapto IV. Continue Cipro gtt. Appreciate nephrology input. Follow Cr trends. Urine eosinophils negative. Follow clinically. d/w pt. d/w RN: need Creatinine to stabilize for me to decide on Daptomycin discharge dose for DC planning. Cannot put in infusion orders till last day of Discharge. Marla Culp MD Aug 30, 2017 17:39
--- NOTE | 2017-08-30 19:10 | HHI.NPPN ---
Subjective History of Present Illness 72-year-old male with a history of severe degenerative disease of the spine with a history of multiple back surgeries and lumbar stenosis. 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 Apparently the patient was receiving vancomycin from August 22 subsequently discontinued secondary to worsening renal function. He is currently on Cipro and daptomycin which was started on 27 August 2017. Patient's creatinine level was noted to have been 0.6 to August 23, 2017 subsequently rising to a level of 2.39 date of consultation. Of interest patient also was experiencing hypotension from August 24 until August 26, 2017. His furosemide was discontinued today. At time of consultation he was on lisinopril as well as Dyazide. Also on Protonix. Patient indicated early in the admission he did have a poor appetite. No previous history of CKD. Interval History Patient had no verbal complaints today. Still has a good appetite. Review of Systems General General Remarks Negative complaints besides back pain Musculoskeletal MS: Pain/Stiffness Objective Data Data 08/30/17 08/31/17 19:00 07:00 Intake Total 600 ml Output Total 650 ml Balance -50 ml Intake Oral 600 ml Output Urine Total 650 ml # Bowel Movements 0 Vital Signs Date Time Temp Pulse Resp B/P (MAP) Pulse Ox O2 Delivery O2 Flow Rate FiO2 08/30/17 16:00 97.6 79 18 105/72 (83) 94 08/30/17 12:00 96.8 84 18 113/71 (85) 96 08/30/17 08:00 98.1 80 18 119/68 (85) 94 08/30/17 00:00 98.4 82 15 100/62 (75) 95 08/29/17 20:00 98.2 83 15 103/60 (74) 96 -: 08/30/17 0618 08/30/17 0618 Physical Exam General Appearance: No Acute Distress, Comfortable Eyes Eye Exam: Pupils Equal Throat Throat Exam: Oral Mucosa [place] & Moist Pulmonary Resp Exam: Clear Bilaterally, Breath Sounds Equal Cardiology CV Exam: Regular, Normal Sinus Rhythm Gastrointestinal/Abdomen GI Exam: Soft, Non-Tender Genitourinary Exam: Clear Urine Integumentary Skin Exam: Clear, Warm Extremeties Extremities Exam: No Edema Neurologic Neuro Exam: Alert, Awake, Oriented Psychiatric Psych Exam: Appropriate Responses Assessment/Plan Problem List: (1) Acute kidney insufficiency ICD Codes: N28.9 - Disorder of kidney and ureter, unspecified Status: Acute Plan: Patient's creatinine level appears to have plateaued. Hopefully this will be followed by an improvement in his creatinine level but remains be determined. Potassium level is still slightly elevated. Continue low potassium diet. If no improvement in renal indices over the next few days consideration may be given to a renal biopsy but may be technically difficult given the patient's chronic back pain and pathology. Most likely he has sustained ATN related to hypotension and Vancomycin toxicity or interstitial nephritis. Consideration to be given to D/C Protonix as this can be associated with AIN with utilization of Zantac instead. Renal US discussed with the patient. Has 2 complex lesions on right kidney. States he is well aware of these and is under the care of Dr. Gerald Pettit. 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 Advised importance of f/u with urology as outpatient. Medications should be adjusted for the patient's estimated GFR if clinically indicated. Avoid agents with significant potential for nephrotoxicity possible including NSAIDs for analgesia, iodine contrast agents. Gadolinium is contraindicated if the GFR is below 30. (2) Hypotension ICD Codes: I95.9 - Hypotension, unspecified Status: Acute Plan: Continue IV hydration. Lasix has been held On PRN Midodrine (3) Lumbar spinal stenosis ICD Codes: M48.061 - Spinal stenosis, lumbar region without neurogenic claudication (4) HTN (hypertension) ICD Codes: I10 - Essential (primary) hypertension (5) Anemia ICD Codes: D64.9 - Anemia, unspecified Plan: Hgb trending downwards and Fe stores low. Discussed with primary who is planning on ordering 1U transfusion today. Will order FOBT Of interest, states he had a bone marrow biopsy done sometime last year by a physician at [facility]. Reports all findings were normal. Will try to obtain records. Plan Unfortunately patient's creatinine level continues to rise. was by the bedside and I discussed with them both the current status of his renal insufficiency and its progression. Hopefully the creatinine level plateau prior to the need for renal replacement therapy as discussed with them. The exam, history, and the medical decision-making described in the above note were completed with the assistance of the GABRIELA. I reviewed and agree with the findings presented. I attest that I had a [id number] encounter with the patient on the same day, and personally performed and documented my assessment and findings in the medical record. Benjy Oh MD Aug 30, 2017 19:10
[2017-08-30 20:31] VITALS: BP 116/60; PULSE 68; RESP 18; TEMP 98.7; O2SAT 95
[2017-08-31 01:16] VITALS: BP 111/64; PULSE 74; RESP 18; TEMP 97.7; O2SAT 95
[2017-08-31] MEDS: SODIUM CHLOR 0.9% 1000 ML INJ 1,000 ML IV SCH ×3 (01:30→17:30)
[2017-08-31] MEDS: CYCLOBENZAPRINE HCL 10 MG TAB PO PRN ×3 (04:08→22:12)
[2017-08-31] MEDS: ACETAMINOPHEN/HYDROcodone 325 MG/10 MG TAB PO PRN ×4 (04:09→20:25)
[2017-08-31 04:54] VITALS: BP 133/92; PULSE 73; RESP 18; TEMP 95.4; O2SAT 97
[2017-08-31 05:34] LABS: ALBUMIN 2.1 GM/DL (3.4-5.0); BICARBONATE 22.8 MEQ/L (21.0-32.0); CREATININE 3.08 MG/DL (0.60-1.30); PHOSPHORUS 4.5 MG/DL (2.5-4.9)
[2017-08-31] MEDS: CIPROFLOXACIN 0.3% OPTH OINT 3.5 GM TUBO EACH EYE SCH ×4 (06:00→22:00)
[2017-08-31 07:55] VITALS: BP 111/61; PULSE 84; RESP 17; TEMP 97.5; O2SAT 98
--- NOTE | 2017-08-31 08:26 | PD.ORT.PN ---
Subjective Subjective Remarks Patient resting comfortably. Denies headaches. Denies nausea or shortness of breath. Objective Vitals Vital Signs Date Time Temp Pulse Resp B/P (MAP) Pulse Ox O2 Delivery O2 Flow Rate FiO2 08/31/17 07:55 97.5 84 17 111/61 (78) 98 08/31/17 04:54 95.4 73 18 133/92 (106) 97 08/31/17 01:16 97.7 74 18 111/64 (80) 95 08/30/17 20:31 98.7 68 18 116/60 (78) 95 08/30/17 16:00 97.6 79 18 105/72 (83) 94 08/30/17 12:00 96.8 84 18 113/71 (85) 96 I/O 08/30/17 08/30/17 08/30/17 08/31/17 08/31/17 08/31/17 07:00 15:00 23:00 07:00 15:00 23:00 Intake Total 240 ml 600 ml 240 ml Output Total 500 ml 650 ml 1125 ml Balance -260 ml -50 ml -885 ml Intake Oral 240 ml 600 ml 240 ml Output Urine Total 500 ml 650 ml 1125 ml # Bowel Movements 0 0 Result Diagram: 08/30/17 0618 08/31/17 0400 Objective Remarks Awake, alert, no acute distress. Nonlabored respirations Bilateral lower extremities: neuro intact. Sensation intact. Brisk cap refill Assessment & Plan Assessment and Plan 72-year-old man now postop day 9 status post revision bilateral L3 4, L4 5 and L5-S1 laminectomies. Concern for purulence Intra-Op and therefore hardware placement was aborted and only decompression performed. Small intraoperative dural leak. 1. Patient should be mobilizing out of bed 1-2 times daily with brace on. I discussed with the patient that I understand he does have back pain but he needs to work through it and needs to be able to mobilize to chair. 2. At this time would ask that medicine help with starting anticoagulation. Given his renal issues, I would likely recommend heparin but I would allow medicine to decide. I do believe it is safe for him to start chemical anticoagulation at this time and I believe it is a good idea given he is limited in his mobility. 3. Intraoperative cultures show Staphylococcus Lugadensis. Appreciate ID assistance. Given positive cultures, I will not be able to place hardware in the next several weeks. I discussed with the patient that it will likely be at least 2-3 months before we are able to place hardware. He will require brace when he is out of bed. He will require likely 6-8 weeks of IV antibiotics prior to any type of consideration for hardware placement. Patient with elevated creatinine and therefore has been switched off of Vanc 4. Hemoglobin remains well. Medicine has asked that we watch this given his renal insufficiency. 5. Given his elevated creatinine and nephrology is following. Creatinine again elevated yesterday over 3. Labs pending this morning. We'll defer to nephrology if and when dialysis may be necessary. 6. discharge planning for rehabilitation once medically cleared . Jessica Stubbs MD Aug 31, 2017 08:26
[2017-08-31] MEDS: GABAPENTIN 400 MG CAP PO SCH ×2 (09:00→20:24)
[2017-08-31] MEDS: MAGNESIUM HYDROXIDE SUSP 30 ML CUP PO SCH ×2 (09:07→20:24)
[2017-08-31] MEDS: ALLOPURINOL 300 MG TAB PO SCH (09:08)
[2017-08-31] MEDS: PANTOPRAZOLE SOD 20 MG DELAYED RELEASE TAB PO SCH (09:08)
[2017-08-31] MEDS: SODIUM BICARBONATE 650 MG TAB PO SCH ×2 (09:08→20:24)
[2017-08-31] MEDS: CARVEDILOL 6.25 MG TAB PO SCH ×2 (09:08→20:24)
[2017-08-31] MEDS: DOCUSATE SODIUM 100 MG CAP PO SCH ×2 (09:08→20:24)
[2017-08-31] MEDS: MULTIVITAMIN TAB PO SCH (09:08)
[2017-08-31] MEDS: SODIUM CHLORIDE 0.9% FLUSH 10 ML FLUSH IV FLUSH SCH ×2 (09:09→20:24)
[2017-08-31 11:39] VITALS: BP 111/62; PULSE 81; RESP 17; TEMP 97; O2SAT 96
[2017-08-31] MEDS ORDERED: SODIUM POLYSTYRENE SULFONATE SUSP 15 GM/60 ML CUP PO ONE (14:15)
--- NOTE | 2017-08-31 14:26 | HHI.PR ---
Subjective Remarks Overall pain control. No other complaints at this time. Is drinking and eating well. Has not urinated since this morning when Martin catheter removed Objective Vitals Vital Signs Date Time Temp Pulse Resp B/P (MAP) Pulse Ox O2 Delivery O2 Flow Rate FiO2 08/31/17 11:39 97.0 81 17 111/62 (78) 96 08/31/17 07:55 97.5 84 17 111/61 (78) 98 08/31/17 04:54 95.4 73 18 133/92 (106) 97 08/31/17 01:16 97.7 74 18 111/64 (80) 95 08/30/17 20:31 98.7 68 18 116/60 (78) 95 08/30/17 16:00 97.6 79 18 105/72 (83) 94 I/O 08/30/17 08/30/17 08/30/17 08/31/17 08/31/17 08/31/17 07:00 15:00 23:00 07:00 15:00 23:00 Intake Total 240 ml 600 ml 240 ml Output Total 500 ml 650 ml 1125 ml Balance -260 ml -50 ml -885 ml Intake Oral 240 ml 600 ml 240 ml Output Urine Total 500 ml 650 ml 1125 ml # Bowel Movements 0 0 Result Diagram: 08/30/17 0618 08/31/17 0400 Other Results Microbiology Date/Time Source Procedure Growth Status 08/22/17 11:23 Wound Back Fungal Smear - Final NO FUNGAL ELEMENTS SEEN. Resulted 08/22/17 11:23 Wound Back Fungal Culture - Preliminary NO GROWTH IN 1 WEEK Resulted Objective Remarks GENERAL: This is a well-nourished, well-developed patient, in no apparent distress. CARDIOVASCULAR: Regular rate and rhythm RESPIRATORY: Clear to auscultation. Breath sounds equal bilaterally. No wheezes , rales, or rhonchi. GASTROINTESTINAL: Abdomen soft, non-tender, nondistended. Normal active bowel sounds Extremities: Extremities without clubbing, cyanosis, or edema. Bilateral SCDs in place NEURO: Alert & Oriented x4 to person, place, time, situation. Moves all ext x4 A/P Problem List: (1) Lumbar post-laminectomy syndrome ICD Code: M96.1 - Postlaminectomy syndrome, not elsewhere classified (2) Lumbar spinal stenosis ICD Code: M48.061 - Spinal stenosis, lumbar region without neurogenic claudication (3) HTN (hypertension) ICD Code: I10 - Essential (primary) hypertension (4) History of gout ICD Code: Z87.39 - Personal history of other diseases of the musculoskeletal system and connective tissue (5) S/P lumbar laminectomy ICD Code: Z98.890 - Other specified postprocedural states Assessment and Plan Acute Renal Insufficiency - Etiology is unclear, most likely vancomycin Following Creatinine trend, mild increase about 3.0. Nephrology Dr. Oh currently following; Martin catheter removed and currently awaiting urination, will need to do a bladder scan if no urine output to rule out underlying retention. Revision bilateral L3,4,5,S1 laminectomies Surgery performed 08/22/17continue post operative care And physical therapy. Previous Hypotension History of essential hypertension Stable, continue Coreg Midodrine provided PRN Parameters placed on lisinopril and triamterene/hydrochlorothiazide Staph Lugdenensis Spinal infection/ abscess s Colonization vs chronic infection Cultures show christine-sensitive staph Lugdenensis Surgery following Infection disease also following currently on daptomycin IV due to renal insufficiency, and now transitioned to IV Ceftaroline Gout Continue allopurinol DVT prophylaxis Bilateral SCDs, anticoagulation contraindicated secondary to spinal surgery Teodora Lr MD Aug 31, 2017 14:26
[2017-08-31] MEDS ORDERED: TAMSULOSIN HCL 0.4 MG CAP PO ONE (14:45)
[2017-08-31] MEDS ORDERED: CEFTAROLINE INJ 300 MG in SODIUM CHLORIDE 0.9% INJ 100 ML IV SCH (15:00)
[2017-08-31 15:47] VITALS: BP 120/65; PULSE 80; RESP 18; TEMP 96.2; O2SAT 94
--- NOTE | 2017-08-31 19:06 | HHI.NPPN ---
Subjective History of Present Illness 72-year-old male with a history of severe degenerative disease of the spine with a history of multiple back surgeries and lumbar stenosis. 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 Apparently the patient was receiving vancomycin from August 22 subsequently discontinued secondary to worsening renal function. He is currently on Cipro and daptomycin which was started on 27 August 2017. Patient's creatinine level was noted to have been 0.6 to August 23, 2017 subsequently rising to a level of 2.39 date of consultation. Of interest patient also was experiencing hypotension from August 24 until August 26, 2017. His furosemide was discontinued today. At time of consultation he was on lisinopril as well as Dyazide. Also on Protonix. Patient indicated early in the admission he did have a poor appetite. No previous history of CKD. Interval History Pt overall feeling OK today. (Gina Jim) Review of Systems General General Remarks Negative complaints besides back pain (Gina Jim) Musculoskeletal MS: Pain/Stiffness (Gina Jim) Objective Data Data 08/31/17 09/01/17 19:00 07:00 Intake Total 500 ml Output Total 700 ml Balance -200 ml Intake Oral 500 ml Output Urine Total 700 ml Bladder Scan Volume Amount 467 ml Vital Signs Date Time Temp Pulse Resp B/P (MAP) Pulse Ox O2 Delivery O2 Flow Rate FiO2 08/31/17 18:43 Room Air 08/31/17 15:47 96.2 80 18 120/65 (83) 94 08/31/17 11:39 97.0 81 17 111/62 (78) 96 08/31/17 07:55 97.5 84 17 111/61 (78) 98 08/31/17 04:54 95.4 73 18 133/92 (106) 97 08/31/17 01:16 97.7 74 18 111/64 (80) 95 08/30/17 20:31 98.7 68 18 116/60 (78) 95 (Gina Jim) -: 08/30/17 0618 08/31/17 0400 Imaging Last Impressions Renal Ultrasound 08/27/17 0000 Signed Impressions: Service Date/Time: Sunday, August 27, 2017 17:45 - CONCLUSION: 1. No evidence hydronephrosis. 2. Complex cystic or solid mass in the lower pole the right kidney and complexes at mass in the midpole of the right kidney. 3. Possible punctate nonobstructing calculus in the left kidney. Maicol Sandoval MD Chest X-Ray 08/27/17 0000 Signed Impressions: Service Date/Time: Sunday, August 27, 2017 13:32 - CONCLUSION: Left-sided PICC line tip at the cavoatrial junction. Maicol Sandoval MD Medication Review Current Medications Medications (Trade) Dose Ordered Sig/Samia Route Start Time Stop Time Status Last Admin (NS Flush) 2 ml UNSCH PRN IV FLUSH 08/22/17 17:00 (NS Flush) 2 ml BID IV FLUSH 08/22/17 21:00 08/31/17 09:09 (Zofran Inj) 4 mg Q6H PRN IV PUSH 08/22/17 17:00 08/29/17 23:05 (Colace) 100 mg BID PO 08/23/17 21:00 08/31/17 09:08 (Dulcolax Supp) 10 mg DAILY PRN RECTAL 08/22/17 17:00 08/26/17 08:56 (Fleets Enema (Adult)) 133 ml DAILY PRN MS 08/22/17 17:00 Sodium Chloride 1,000 ml @ 125 mls/hr Q8H IV 08/22/17 17:30 08/28/17 01:49 (Zyloprim) 300 mg DAILY PO 08/23/17 09:00 08/31/17 09:08 (Coreg) 6.25 mg BID PO 08/23/17 09:00 08/31/17 09:08 (Protonix) 20 mg DAILY PO 08/23/17 09:00 08/31/17 09:08 (Theragran) 1 tab DAILY PO 08/23/17 09:00 08/31/17 09:08 (Flexeril) 10 mg Q8H PRN PO 08/23/17 07:45 08/31/17 12:47 (Morphine Inj) 2 mg Q4H PRN IV PUSH 08/24/17 08:00 ([place] 10-325 Mg) 1 tab Q4H PRN PO 08/24/17 08:00 08/31/17 12:50 (Ciloxan 0.3% Opth Oint) 1 applic Q8HR EACH EYE 08/25/17 16:00 08/30/17 19:46 (Milk Of Magnesia Liq) 30 ml Q12HR PO 08/25/17 21:00 08/31/17 09:07 (Proamatine) 5 mg TID@07,12,17 PRN PO 08/26/17 09:00 (Neurontin) 400 mg BID PO 08/28/17 09:00 08/31/17 09:00 (Sodium Bicarbonate) 650 mg Q12HR PO 08/29/17 09:45 08/31/17 09:08 (Drisdol) 50,000 units Q7D PO 08/29/17 18:00 08/29/17 20:59 Ceftaroline Fosamil 300 mg/ Sodium Chloride 100 ml @ 100 mls/hr Q12H IV 08/31/17 15:00 08/31/17 16:02 (Flomax) 0.4 mg DAILY PO 09/01/17 09:00 (Veltassa) 8.4 gm STAT ONCE PO 08/31/17 18:15 08/31/17 18:16 UNV (Gina Jim) Physical Exam General Appearance: No Acute Distress, Comfortable (Gina Jim) Eyes Eye Exam: Pupils Equal (Gina Jim) Throat Throat Exam: Oral Mucosa [place] & Moist (Gina Jim) Pulmonary Resp Exam: Clear Bilaterally, Breath Sounds Equal (iGna Jim) Cardiology CV Exam: Regular, Normal Sinus Rhythm (Gina Jim) Gastrointestinal/Abdomen GI Exam: Soft, Non-Tender (Gina Jim) Genitourinary Exam: Clear Urine (Gina Jim) Integumentary Skin Exam: Clear, Warm (Gina Jim) Extremeties Extremities Exam: No Edema (Gina Jim) Neurologic Neuro Exam: Alert, Awake, Oriented (Gina Jim) Psychiatric Psych Exam: Appropriate Responses (Gina Jim) Assessment/Plan Problem List: (1) Acute kidney insufficiency ICD Codes: N28.9 - Disorder of kidney and ureter, unspecified Status: Acute Plan: Renal functions deteriorated slightly, however, has had urinary retention since removal of Martin. This has potentially caused slight decline. Advised reinsertion of Martin to the RN. Vancomycin was discontinued on 08/27 and level drawn this morning is still high. This is likely the cause of renal decline. For the present, we will continue to monitor renal function as there is no definitive treatment to expedite recovery. Consideration to be given for renal biopsy for definitive diagnosis, but given his infection status we would like to hold off on this if possible. Renal US discussed with the patient. Has 2 complex lesions on right kidney. States he is well aware of these and is under the care of Dr. Gerald Pettit. 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 Advised importance of f/u with urology as outpatient. Medications should be adjusted for the patient's estimated GFR if clinically indicated. Avoid agents with significant potential for nephrotoxicity possible including NSAIDs for analgesia, iodine contrast agents. Gadolinium is contraindicated if the GFR is below 30. (2) Hypotension ICD Codes: I95.9 - Hypotension, unspecified Status: Acute Plan: Continue IV hydration. Lasix has been held On PRN Midodrine (3) Lumbar spinal stenosis ICD Codes: M48.061 - Spinal stenosis, lumbar region without neurogenic claudication Status: Chronic (4) HTN (hypertension) ICD Codes: I10 - Essential (primary) hypertension Status: Chronic (5) Anemia ICD Codes: D64.9 - Anemia, unspecified Plan: Hgb trending downwards and Fe stores low. Pending FOBT (6) Hyperkalemia ICD Codes: E87.5 - Hyperkalemia Plan: Placed on 40mEq restriction. Veltassa ordered for tonight (Gina Jim) Plan The exam, history, and the medical decision-making described in the above note were completed with the assistance of the PA-C. I reviewed and agree with the findings presented. I attest that I had a [id number] encounter with the patient on the same day, and personally performed and documented my assessment and findings in the medical record. (Benjy Oh MD) Problem Qualifiers (1) HTN (hypertension): Qualified Codes: I10 - Essential (primary) hypertension Gina Jim Aug 31, 2017 19:06 Benjy Oh MD Sep 02, 2017 14:35
[2017-08-31] MEDS ORDERED: PATIROMER CALCIUM SORBITEX 8.4 GM PKT PO ONE (19:45)
[2017-08-31 20:00] VITALS: BP 116/67; PULSE 79; RESP 16; TEMP 97.8; O2SAT 93
[2017-08-31 21:50] LABS: KAPPA LAMBDA RATIO 1.47 (1.57-3.93)
[2017-09-01] VITALS: BP 117/70; PULSE 75; RESP 16; TEMP 97.7; O2SAT 95
[2017-09-01] MEDS: ACETAMINOPHEN/HYDROcodone 325 MG/10 MG TAB PO PRN ×5 (00:33→17:42)
[2017-09-01 04:00] VITALS: BP 114/69; PULSE 84; RESP 16; TEMP 97.7; O2SAT 98
[2017-09-01] MEDS: CEFTAROLINE INJ 300 MG in SODIUM CHLORIDE 0.9% INJ 100 ML IV SCH ×2 (04:32→15:48)
[2017-09-01] MEDS: CIPROFLOXACIN 0.3% OPTH OINT 3.5 GM TUBO EACH EYE SCH ×3 (06:00→22:00)
[2017-09-01 06:15] LABS: BICARBONATE 23.2 MEQ/L (21.0-32.0); CALCIUM 9.3 MG/DL (8.5-10.1); CREATININE 3.09 MG/DL (0.60-1.30)
[2017-09-01 08:00] VITALS: BP 107/60; PULSE 82; RESP 18; TEMP 97; O2SAT 95
[2017-09-01] MEDS: CARVEDILOL 6.25 MG TAB PO SCH ×2 (08:38→20:56)
[2017-09-01] MEDS: MAGNESIUM HYDROXIDE SUSP 30 ML CUP PO SCH ×2 (08:38→21:00)
[2017-09-01] MEDS: PANTOPRAZOLE SOD 20 MG DELAYED RELEASE TAB PO SCH (08:38)
[2017-09-01] MEDS: MULTIVITAMIN TAB PO SCH (08:38)
[2017-09-01] MEDS: GABAPENTIN 400 MG CAP PO SCH ×2 (08:38→20:56)
[2017-09-01] MEDS: ALLOPURINOL 300 MG TAB PO SCH (08:38)
[2017-09-01] MEDS: TAMSULOSIN HCL 0.4 MG CAP PO SCH (08:39)
[2017-09-01] MEDS: DOCUSATE SODIUM 100 MG CAP PO SCH ×2 (08:39→20:56)
[2017-09-01] MEDS: SODIUM CHLORIDE 0.9% FLUSH 10 ML FLUSH IV FLUSH SCH ×2 (08:40→20:56)
[2017-09-01] MEDS: SODIUM BICARBONATE 650 MG TAB PO SCH ×2 (08:44→20:56)
[2017-09-01] MEDS: CYCLOBENZAPRINE HCL 10 MG TAB PO PRN ×2 (08:44→20:57)
[2017-09-01] MEDS: SODIUM CHLOR 0.9% 1000 ML INJ 1,000 ML IV SCH ×3 (08:48→20:58)
[2017-09-01 12:00] VITALS: BP 114/68; PULSE 88; RESP 17; TEMP 96.3; O2SAT 95
--- NOTE | 2017-09-01 12:05 | PD.ORT.PN ---
Subjective Subjective Remarks Patient resting comfortably. Denies headaches. Denies nausea or shortness of breath. Objective Vitals Vital Signs Date Time Temp Pulse Resp B/P (MAP) Pulse Ox O2 Delivery O2 Flow Rate FiO2 09/01/17 08:00 97.0 82 18 107/60 (76) 95 09/01/17 04:00 97.7 84 16 114/69 (84) 98 09/01/17 00:00 97.7 75 16 117/70 (86) 95 08/31/17 20:00 97.8 79 16 116/67 (83) 93 08/31/17 18:43 Room Air 08/31/17 15:47 96.2 80 18 120/65 (83) 94 I/O 08/31/17 08/31/17 08/31/17 09/01/17 09/01/17 09/01/17 07:00 15:00 23:00 07:00 15:00 23:00 Intake Total 240 ml 500 ml 680 ml Output Total 1125 ml 700 ml Balance -885 ml -200 ml 680 ml Intake Oral 240 ml 500 ml 480 ml IV Total 200 ml Output Urine Total 1125 ml 700 ml Bladder Scan Volume Amount 467 ml # Voids 2 # Bowel Movements 1 Result Diagram: 08/30/17 0618 09/01/17 0525 Objective Remarks Awake, alert, no acute distress. Nonlabored respirations Bilateral lower extremities: neuro intact. Sensation intact. Brisk cap refill Assessment & Plan Assessment and Plan 72-year-old man now postop day 10 status post revision bilateral L3 4, L4 5 and L5-S1 laminectomies. With purulence Intra-Op and therefore hardware placement was aborted and only decompression performed. Small intraoperative dural leak. 1. Patient should be mobilizing out of bed 1-2 times daily with brace on. 2. At this time would ask that medicine help with starting anticoagulation. Given his renal issues, I would likely recommend heparin but I would allow medicine to decide. I do believe it is safe for him to start chemical anticoagulation at this time and I believe it is a good idea given he is limited in his mobility. 3. Intraoperative cultures show Staphylococcus Lugadensis. Appreciate ID assistance. Given positive cultures, I will not be able to place hardware in the next several weeks. I discussed with the patient that it will likely be at least 2-3 months before we are able to place hardware. He will require brace when he is out of bed. He will require likely 6-8 weeks of IV antibiotics prior to any type of consideration for hardware placement. Patient with elevated creatinine and therefore has been switched off of Vanc 4. Hemoglobin remains around 7.6. Medicine has asked that we watch this given his renal insufficiency. 5. Given his elevated creatinine and nephrology is following. We'll defer to nephrology if and when dialysis may be necessary. Avoid nephrotoxic agents. 6. discharge planning for rehabilitation once medically cleared, hopefully early next week. . Jessica Stubbs MD Sep 01, 2017 12:05
[2017-09-01] MEDS: ONDANSETRON HCL 4 MG/2 ML VIAL IV PUSH PRN (13:29)
--- NOTE | 2017-09-01 14:37 | HHI.PR ---
Subjective Remarks Cannot urinate yesterday. Overall pain control. Objective Vitals Vital Signs Date Time Temp Pulse Resp B/P (MAP) Pulse Ox O2 Delivery O2 Flow Rate FiO2 09/01/17 08:00 97.0 82 18 107/60 (76) 95 09/01/17 04:00 97.7 84 16 114/69 (84) 98 09/01/17 00:00 97.7 75 16 117/70 (86) 95 08/31/17 20:00 97.8 79 16 116/67 (83) 93 08/31/17 18:43 Room Air 08/31/17 15:47 96.2 80 18 120/65 (83) 94 I/O 08/31/17 08/31/17 08/31/17 09/01/17 09/01/17 09/01/17 06:59 14:59 22:59 06:59 14:59 22:59 Intake Total 240 ml 500 ml 680 ml Output Total 1125 ml 700 ml Balance -885 ml -200 ml 680 ml Intake Oral 240 ml 500 ml 480 ml IV Total 200 ml Output Urine Total 1125 ml 700 ml Bladder Scan Volume Amount 467 ml # Voids 2 # Bowel Movements 1 Result Diagram: 08/30/17 0618 09/01/17 0525 Objective Remarks GENERAL: This is a well-nourished, well-developed patient, in no apparent distress. CARDIOVASCULAR: Regular rate and rhythm RESPIRATORY: Clear to auscultation. Breath sounds equal bilaterally. No wheezes , rales, or rhonchi. GASTROINTESTINAL: Abdomen soft, non-tender, nondistended. Normal active bowel sounds Extremities: Extremities without clubbing, cyanosis, or edema. Bilateral SCDs in place NEURO: Alert & Oriented x4 to person, place, time, situation. Moves all ext x4 A/P Problem List: (1) Lumbar post-laminectomy syndrome ICD Code: M96.1 - Postlaminectomy syndrome, not elsewhere classified (2) Lumbar spinal stenosis ICD Code: M48.061 - Spinal stenosis, lumbar region without neurogenic claudication Status: Chronic (3) HTN (hypertension) ICD Code: I10 - Essential (primary) hypertension Status: Chronic (4) History of gout ICD Code: Z87.39 - Personal history of other diseases of the musculoskeletal system and connective tissue Status: Chronic (5) S/P lumbar laminectomy ICD Code: Z98.890 - Other specified postprocedural states Assessment and Plan Acute Renal failure Etiology is unclear, most likely due to previous IV vancomycin administration. Following Creatinine trend, mild increase over 3.0 and this may have been exacerbated by recent urinary retention from trial of voiding for Martin removal yesterday. Nephrology Dr. Oh currently following; Mratin catheter reinserted yesterday due to urinary retention Left renal complex mass- Patient has been counseled by nephrology to follow up with his urologist Dr. Pettit for further outpatient workup Revision bilateral L3,4,5,S1 laminectomies Surgery performed 08/22/17 - continue post operative care per orthopedic surgery ; Continue physical therapy. 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
[2017-09-01 16:00] VITALS: BP 104/65; PULSE 82; RESP 18; TEMP 96.4; O2SAT 95
--- NOTE | 2017-09-01 16:48 | HHI.NPPN ---
Subjective History of Present Illness 72-year-old male with a history of severe degenerative disease of the spine with a history of multiple back surgeries and lumbar stenosis. 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 Apparently the patient was receiving vancomycin from August 22 subsequently discontinued secondary to worsening renal function. He is currently on Cipro and daptomycin which was started on 27 August 2017. Patient's creatinine level was noted to have been 0.6 to August 23, 2017 subsequently rising to a level of 2.39 date of consultation. Of interest patient also was experiencing hypotension from August 24 until August 26, 2017. His furosemide was discontinued today. At time of consultation he was on lisinopril as well as Dyazide. Also on Protonix. Patient indicated early in the admission he did have a poor appetite. No previous history of CKD. Interval History No new events (Gina Jim) Review of Systems General General Remarks Negative complaints besides back pain (Gina Jim) Musculoskeletal MS: Pain/Stiffness (Gina Jim) Objective Data Data 09/01/17 09/02/17 19:00 07:00 Output Total 900 ml Balance -900 ml Output Urine Total 900 ml Vital Signs Date Time Temp Pulse Resp B/P (MAP) Pulse Ox O2 Delivery O2 Flow Rate FiO2 09/01/17 16:00 96.4 82 18 104/65 (78) 95 09/01/17 12:00 96.3 88 17 114/68 (83) 95 09/01/17 08:00 97.0 82 18 107/60 (76) 95 09/01/17 04:00 97.7 84 16 114/69 (84) 98 09/01/17 00:00 97.7 75 16 117/70 (86) 95 08/31/17 20:00 97.8 79 16 116/67 (83) 93 08/31/17 18:43 Room Air (Gina Jim) -: 08/30/17 0618 09/01/17 0525 Microbiology 09/01/17 Stool Occult Blood (SON) - Final, Complete HEMOCCULT NEGATIVE Medication Review Current Medications Medications (Trade) Dose Ordered Sig/Samia Route Start Time Stop Time Status Last Admin (NS Flush) 2 ml UNSCH PRN IV FLUSH 08/22/17 17:00 (NS Flush) 2 ml BID IV FLUSH 08/22/17 21:00 09/01/17 08:40 (Zofran Inj) 4 mg Q6H PRN IV PUSH 08/22/17 17:00 09/01/17 13:29 (Colace) 100 mg BID PO 08/23/17 21:00 09/01/17 08:39 (Dulcolax Supp) 10 mg DAILY PRN RECTAL 08/22/17 17:00 08/26/17 08:56 (Fleets Enema (Adult)) 133 ml DAILY PRN MD 08/22/17 17:00 Sodium Chloride 1,000 ml @ 125 mls/hr Q8H IV 08/22/17 17:30 08/28/17 01:49 (Zyloprim) 300 mg DAILY PO 08/23/17 09:00 09/01/17 08:38 (Coreg) 6.25 mg BID PO 08/23/17 09:00 09/01/17 08:38 (Protonix) 20 mg DAILY PO 08/23/17 09:00 09/01/17 08:38 (Theragran) 1 tab DAILY PO 08/23/17 09:00 09/01/17 08:38 (Flexeril) 10 mg Q8H PRN PO 08/23/17 07:45 09/01/17 08:44 (Morphine Inj) 2 mg Q4H PRN IV PUSH 08/24/17 08:00 ([place] 10-325 Mg) 1 tab Q4H PRN PO 08/24/17 08:00 09/01/17 13:40 (Ciloxan 0.3% Opth Oint) 1 applic Q8HR EACH EYE 08/25/17 16:00 08/30/17 19:46 (Milk Of Magnesia Liq) 30 ml Q12HR PO 08/25/17 21:00 09/01/17 08:38 (Proamatine) 5 mg TID@07,12,17 PRN PO 08/26/17 09:00 (Neurontin) 400 mg BID PO 08/28/17 09:00 09/01/17 08:38 (Sodium Bicarbonate) 650 mg Q12HR PO 08/29/17 09:45 09/01/17 08:44 (Drisdol) 50,000 units Q7D PO 08/29/17 18:00 08/29/17 20:59 (Flomax) 0.4 mg DAILY PO 09/01/17 09:00 09/01/17 08:39 Ceftaroline Fosamil 300 mg/ Sodium Chloride 100 ml @ 100 mls/hr Q12H IV 09/01/17 03:00 09/01/17 15:48 (Gina Jim) Physical Exam General Appearance: No Acute Distress, Comfortable (Gina Jim) Eyes Eye Exam: Pupils Equal (Gina Jim) Throat Throat Exam: Oral Mucosa [place] & Moist (Gina Jim) Pulmonary Resp Exam: Clear Bilaterally, Breath Sounds Equal (Gina Jim) Cardiology CV Exam: Regular, Normal Sinus Rhythm (Gina Jim) Gastrointestinal/Abdomen GI Exam: Soft, Non-Tender (Gina Jim) Genitourinary Exam: Clear Urine (Gina Jim) Integumentary Skin Exam: Clear, Warm (Gina Jim) Extremeties Extremities Exam: No Edema (Gina Jim) Neurologic Neuro Exam: Alert, Awake, Oriented (Gina Jim) Psychiatric Psych Exam: Appropriate Responses (Gina Jim) Assessment/Plan Problem List: (1) Acute kidney insufficiency ICD Codes: N28.9 - Disorder of kidney and ureter, unspecified Status: Acute Plan: Renal functions stable. UOP adequate with Martin placed. Vancomycin was discontinued on 08/27 and level drawn this morning is still high. This is likely the cause of renal decline. Case discussed with Dr. Culp For the present, we will continue to monitor renal function as there is no definitive treatment to expedite recovery. Consideration to be given for renal biopsy for definitive diagnosis, but given his infection status we would like to hold off on this if possible. Renal US discussed with the patient. Has 2 complex lesions on right kidney. States he is well aware of these and is under the care of Dr. Gerald Pettit. 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 Advised importance of f/u with urology as outpatient. Medications should be adjusted for the patient's estimated GFR if clinically indicated. Avoid agents with significant potential for nephrotoxicity possible including NSAIDs for analgesia, iodine contrast agents. Gadolinium is contraindicated if the GFR is below 30. (2) Hypotension ICD Codes: I95.9 - Hypotension, unspecified Status: Acute Plan: Improved (3) Lumbar spinal stenosis ICD Codes: M48.061 - Spinal stenosis, lumbar region without neurogenic claudication Status: Chronic (4) HTN (hypertension) ICD Codes: I10 - Essential (primary) hypertension Status: Chronic (5) Anemia ICD Codes: D64.9 - Anemia, unspecified Plan: Hgb trending downwards and Fe stores low. Pending FOBT (6) Hyperkalemia ICD Codes: E87.5 - Hyperkalemia Plan: Placed on 40mEq restriction. Improved (Gina Jim) Plan The exam, history, and the medical decision-making described in the above note were completed with the assistance of the PATiffani. I reviewed and agree with the findings presented. (Benjy hO MD) Problem Qualifiers (1) HTN (hypertension): Qualified Codes: I10 - Essential (primary) hypertension Gina Jim Sep 01, 2017 16:48 Benjy Oh MD Sep 02, 2017 14:36
--- NOTE | 2017-09-01 17:08 | HHI.IDPN ---
Subjective Subjective Remarks is a 72 y/o CM who underwent bilateral hemilaminectomies at L3-S1 in February of 2017. Patient reports this is his 4th surgery but he has had no hardware to date. He reports he initially had significant improvement in his radicular symptoms, however, he developed a large fluid collection requiring drainage in March. Subsequently, he developed recurrent symptoms and early May with imaging demonstrating a recurrent disc herniation requiring revision bilateral hemilaminectomies at L3-L5 by Dr. Beaulieu. Postoperatively , he had significant improvement in his symptoms for only 2 weeks with recurrent radiculopathy and neurogenic medications symptoms. Repeat imaging at the beginning of July demonstrated a recurrent disc herniation at L4-5 along with significant central and foraminal stenosis at L3-4 and foraminal stenosis at L5-S1. Options of management were discussed with the patient. Summary of his surgeries in 2017 to date: 03/06/2017: L3-S1 bilateral hemilaminectomy, foraminotomy, partial facetectomy, decompression of nerve roots 04/17/2017: L-spine incision and drainage, drainage of seroma. Cultures intraoperatively with no growth. No antibiotics appear to be have prescribed on discharge. 06/21/2017: L3-L5 bilateral decompression, hemilaminectomy, foraminotomy, partial facetectomy, decompression with reexploration 08/23/2017: Right revision laminectomies with partial facetectomies L3-4, L4-5 and L5-S1, Left revision laminectomies with partial facetectomies L3-4, L4-5 and L5-S1, Incision and drainage lumbar abscess. Intraop cultures positive for Coag neg staph. Pertinent positives and negatives: denies B/B incontinence denies fever, chills or night sweats Reports anorexia and weight loss. Has perineal sensation. Defers rectal exam due to significant pain. No paresthesias or focal neuro deficit in LEs. Infectious disease is consulted for evaluation and management of coag-negative staphylococcus lumbar abscess possible osteomyelitis. Past Medical History Gastric ulcers Right renal mass Hyperglycemia Gout Osteoarthritis of the hip Hypertension Spinal stenosis since 2015 status post multiple surgeries Impotence Idiopathic peripheral neuropathy Obesity Past Surgical History 03/06/2017: L3-S1 bilateral hemilaminectomy, foraminotomy, partial facetectomy, decompression of nerve roots 04/17/2017: L-spine incision and drainage, drainage of seroma. Cultures intraoperatively with no growth. No antibiotics appear to be have prescribed on discharge. 06/21/2017: L3-L5 bilateral decompression, hemilaminectomy, foraminotomy, partial facetectomy, decompression with reexploration 08/23/2017: Right revision laminectomies with partial facetectomies L3-4, L4-5 and L5-S1, Left revision laminectomies with partial facetectomies L3-4, L4-5 and L5-S1, Incision and drainage lumbar abscess. Intraop cultures positive for Coag neg staph. Bilateral hernia repair EGD Colonoscopy Overnight events reviewed Left Eye much improved. No fever No rash No diarrhea Had issues with retention of urine overnight had to be catheterized again. Cr increased but Vanco level still significant in systeml Antibiotics Teflaro IV Lines Line sites with no e.o infection Past Medical History Gastric ulcers Right renal mass Hyperglycemia Gout Osteoarthritis of the hip Hypertension Spinal stenosis since 2014 status post multiple surgeries Impotence Idiopathic peripheral neuropathy Obesity Past Surgical History 03/06/2017: L3-S1 bilateral hemilaminectomy, foraminotomy, partial facetectomy, decompression of nerve roots 04/17/2017: L-spine incision and drainage, drainage of seroma. Cultures intraoperatively with no growth. No antibiotics appear to be have prescribed on discharge. 06/21/2017: L3-L5 bilateral decompression, hemilaminectomy, foraminotomy, partial facetectomy, decompression with reexploration 08/23/2017: Right revision laminectomies with partial facetectomies L3-4, L4-5 and L5-S1, Left revision laminectomies with partial facetectomies L3-4, L4-5 and L5-S1, Incision and drainage lumbar abscess. Intraop cultures positive for Coag neg staph. Bilateral hernia repair EGD Colonoscopy Allergies: Coded Allergies: No Known Allergies (Verified Allergy, Unknown, 08/22/17) Objective . Vital Signs Date Time Temp Pulse Resp B/P (MAP) Pulse Ox O2 Delivery O2 Flow Rate FiO2 09/01/17 16:00 96.4 82 18 104/65 (78) 95 09/01/17 12:00 96.3 88 17 114/68 (83) 95 09/01/17 08:00 97.0 82 18 107/60 (76) 95 09/01/17 04:00 97.7 84 16 114/69 (84) 98 09/01/17 00:00 97.7 75 16 117/70 (86) 95 08/31/17 20:00 97.8 79 16 116/67 (83) 93 08/31/17 18:43 Room Air 09/01/17 09/01/17 09/02/17 15:00 23:00 07:00 Output Total 900 ml Balance -900 ml Output Urine Total 900 ml . Laboratory Tests Test 08/31/17 04:00 08/31/17 20:30 09/01/17 05:25 Blood Urea Nitrogen 42 MG/DL 42 MG/DL Creatinine 3.08 MG/DL 3.09 MG/DL Random Glucose 92 MG/DL 104 MG/DL Albumin 2.1 GM/DL Calcium Level 9.0 MG/DL 9.3 MG/DL Phosphorus Level 4.5 MG/DL Sodium Level 135 MEQ/L 134 MEQ/L Potassium Level 5.4 MEQ/L 5.1 MEQ/L Chloride Level 105 MEQ/L 104 MEQ/L Carbon Dioxide Level 22.8 MEQ/L 23.2 MEQ/L Anion Gap 7 MEQ/L 7 MEQ/L Estimat Glomerular Filtration Rate 20 ML/MIN 20 ML/MIN Total Protein 5.6 GM/DL Microbiology Date/Time Source Procedure Growth Status 09/01/17 04:25 Stool Stool Stool Occult Blood ([facility]) - Final HEMOCCULT NEGATIVE Complete Imaging Last Impressions Renal Ultrasound 08/27/17 0000 Signed Impressions: Service Date/Time: Sunday, August 27, 2017 17:45 - CONCLUSION: 1. No evidence hydronephrosis. 2. Complex cystic or solid mass in the lower pole the right kidney and complexes at mass in the midpole of the right kidney. 3. Possible punctate nonobstructing calculus in the left kidney. Maicol Sandoval MD Chest X-Ray 08/27/17 0000 Signed Impressions: Service Date/Time: Sunday, August 27, 2017 13:32 - CONCLUSION: Left-sided PICC line tip at the cavoatrial junction. Maicol Sandoval MD Physical Exam GENERAL: This is a well-nourished, well-developed patient, in no apparent distress. SKIN: No rashes, ecchymoses or lesions. Cool and dry. HEAD: Atraumatic. Normocephalic. No temporal or scalp tenderness. EYES: Pupils equal round and reactive. Extraocular motions intact. No scleral icterus. No injection or drainage. ENT: Nose without bleeding, purulent drainage or septal hematoma. Throat without erythema, tonsillar hypertrophy or exudate. Uvula midline. Airway patent. NECK: Trachea midline. Supple, nontender, no meningeal signs. CARDIOVASCULAR: Regular rate and rhythm without murmurs, gallops, or rubs. RESPIRATORY: Clear to auscultation. Breath sounds equal bilaterally. No wheezes , rales, or rhonchi. GASTROINTESTINAL: Abdomen soft, non-tender, nondistended. MUSCULOSKELETAL: Extremities without clubbing, cyanosis, or edema. No joint tenderness, effusion, or edema noted. No calf tenderness. Negative Homans sign bilaterally. Wiggles his toes. Surgical site ok. NEUROLOGICAL: Awake and alert. Non focal exam. Psych cooperative IV line sites with no e.o infection. 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 No hardware in place. Coag neg staph spinal abscess. Acute renal failure: meds related likely, prerenal Staph Lugdenensis spinal abscess Lumbar stenosis with radiculopathy with significant pain. Multiple spinal surgeries in 2017. Left eyebrow cellulitis/conjunctivitis Recs: Continue Teflaro IV Continue Cipro gtt. Vanco random level 24.9. Cr increased but Vanco level still significant in system. Appreciate nephrology input. Follow Cr trends. Urine eosinophils negative. Follow clinically. d/w pt. d/w Nephro team: would like to wait d/w RN: need Creatinine to stabilize for me to decide on Daptomycin discharge dose for DC planning. Cannot put in infusion orders till last day of Discharge. covering for me this weekend. Marla Culp MD Sep 01, 2017 17:07
[2017-09-01 20:00] VITALS: BP 111/58; PULSE 72; RESP 20; TEMP 97.6; O2SAT 97
[2017-09-02] VITALS: BP 113/57; PULSE 72; RESP 18; TEMP 97.6; O2SAT 95
[2017-09-02] MEDS: CIPROFLOXACIN 0.3% OPTH OINT 3.5 GM TUBO EACH EYE SCH ×3 (03:56→20:44)
[2017-09-02] MEDS: CEFTAROLINE INJ 300 MG in SODIUM CHLORIDE 0.9% INJ 100 ML IV SCH ×2 (03:56→14:46)
[2017-09-02] MEDS: ACETAMINOPHEN/HYDROcodone 325 MG/10 MG TAB PO PRN ×5 (05:12→22:37)
[2017-09-02] MEDS: PANTOPRAZOLE SOD 20 MG DELAYED RELEASE TAB PO SCH (07:24)
[2017-09-02] MEDS: GABAPENTIN 400 MG CAP PO SCH ×2 (07:24→20:44)
[2017-09-02] MEDS: TAMSULOSIN HCL 0.4 MG CAP PO SCH (07:24)
[2017-09-02] MEDS: DOCUSATE SODIUM 100 MG CAP PO SCH ×2 (07:25→20:44)
[2017-09-02] MEDS: SODIUM BICARBONATE 650 MG TAB PO SCH ×2 (07:25→20:44)
[2017-09-02] MEDS: ALLOPURINOL 300 MG TAB PO SCH (07:25)
[2017-09-02] MEDS: CARVEDILOL 6.25 MG TAB PO SCH ×2 (07:25→20:44)
[2017-09-02] MEDS: MULTIVITAMIN TAB PO SCH (07:25)
[2017-09-02 08:00] VITALS: BP 118/68; PULSE 78; RESP 17; TEMP 96.6; O2SAT 92
--- NOTE | 2017-09-02 08:02 | PD.ORT.PN ---
Subjective Subjective Remarks performing bed to chair transfers yesterday, with brace Objective Vitals Vital Signs Date Time Temp Pulse Resp B/P (MAP) Pulse Ox O2 Delivery O2 Flow Rate FiO2 09/02/17 00:00 97.6 72 18 113/57 (75) 95 09/01/17 20:00 97.6 72 20 111/58 (75) 97 09/01/17 19:10 Room Air 09/01/17 16:00 96.4 82 18 104/65 (78) 95 09/01/17 12:00 96.3 88 17 114/68 (83) 95 09/01/17 08:00 97.0 82 18 107/60 (76) 95 I/O 09/01/17 09/01/17 09/01/17 09/02/17 09/02/17 09/02/17 07:00 15:00 23:00 07:00 15:00 23:00 Intake Total 680 ml 100 ml 1330 ml Output Total 900 ml 1550 ml Balance 680 ml -900 ml 100 ml -220 ml Intake Oral 480 ml 480 ml IV Total 200 ml 100 ml 850 ml Output Urine Total 900 ml 1550 ml # Voids 2 # Bowel Movements 1 Result Diagram: 08/30/17 0618 09/01/17 0525 Objective Remarks Awake, alert, no acute distress. Nonlabored respirations Bilateral lower extremities: neuro intact. Sensation intact. Brisk cap refill Assessment & Plan Assessment and Plan 72-year-old man now postop day 11 status post revision bilateral L3 4, L4 5 and L5-S1 laminectomies. With purulence Intra-Op and therefore hardware placement was aborted and only decompression performed. Small intraoperative dural leak. 1. Continue Patient mobilizing out of bed 1-2 times daily with brace on. 2. chemical DVT prophylaxis was contra-indicated at this time per med consult, cont with SCDs (applied) and mobilization 3. Intraoperative cultures show Staphylococcus Lugadensis. ABX adjusted by ID consult. 4. nephrology following renal insufficiency 5. discharge planning for rehabilitation once medically cleared, hopefully early next week. Kenneth Castro MD Sep 02, 2017 08:02
[2017-09-02] MEDS: MAGNESIUM HYDROXIDE SUSP 30 ML CUP PO SCH ×2 (09:00→20:44)
[2017-09-02] MEDS: SODIUM CHLORIDE 0.9% FLUSH 10 ML FLUSH IV FLUSH SCH ×2 (09:00→20:54)
[2017-09-02] MEDS: SODIUM CHLOR 0.9% 1000 ML INJ 1,000 ML IV SCH ×2 (09:30→17:30)
[2017-09-02 12:00] VITALS: BP 112/73; PULSE 87; RESP 17; TEMP 97.6; O2SAT 95
--- NOTE | 2017-09-02 14:58 | HHI.PR ---
Subjective Remarks Follow-up on acute renal failure and anemia No current complaints states he got tired and had some pain after working hard with physical therapy Objective Vitals Vital Signs Date Time Temp Pulse Resp B/P (MAP) Pulse Ox O2 Delivery O2 Flow Rate FiO2 09/02/17 12:00 97.6 87 17 112/73 (86) 95 09/02/17 08:00 96.6 78 17 118/68 (85) 92 09/02/17 00:00 97.6 72 18 113/57 (75) 95 09/01/17 20:00 97.6 72 20 111/58 (75) 97 09/01/17 19:10 Room Air 09/01/17 16:00 96.4 82 18 104/65 (78) 95 I/O 09/01/17 09/01/17 09/01/17 09/02/17 09/02/17 09/02/17 07:00 15:00 23:00 07:00 15:00 23:00 Intake Total 680 ml 100 ml 1330 ml Output Total 900 ml 1550 ml Balance 680 ml -900 ml 100 ml -220 ml Intake Oral 480 ml 480 ml IV Total 200 ml 100 ml 850 ml Output Urine Total 900 ml 1550 ml # Voids 2 # Bowel Movements 1 Result Diagram: 08/30/17 0618 09/01/17 0525 Other Results Laboratory Tests Test 08/31/17 04:00 08/31/17 13:41 08/31/17 20:30 09/01/17 05:25 Blood Urea Nitrogen 42 MG/DL 42 MG/DL Creatinine 3.08 MG/DL 3.09 MG/DL Random Glucose 92 MG/DL 104 MG/DL Albumin 2.1 GM/DL Calcium Level 9.0 MG/DL 9.3 MG/DL Phosphorus Level 4.5 MG/DL Sodium Level 135 MEQ/L 134 MEQ/L Potassium Level 5.4 MEQ/L 5.1 MEQ/L Chloride Level 105 MEQ/L 104 MEQ/L Carbon Dioxide Level 22.8 MEQ/L 23.2 MEQ/L Anion Gap 7 MEQ/L 7 MEQ/L Estimat Glomerular Filtration Rate 20 ML/MIN 20 ML/MIN Random Vancomycin Level 24.9 COMMENT Total Protein 5.6 GM/DL Immunoglobulin G Total 716 MG/DL Immunoglobulin A 167 MG/DL Immunoglobulin M 36 MG/DL Immunoglobulin Surrency/Lambda Ratio 1.47 Surrency Light Chain Analysis 169 MG/DL Lambda Light Chain Analysis 115 MG/DL Imaging Last Impressions Renal Ultrasound 08/27/17 0000 Signed Impressions: Service Date/Time: Sunday, August 27, 2017 17:45 - CONCLUSION: 1. No evidence hydronephrosis. 2. Complex cystic or solid mass in the lower pole the right kidney and complexes at mass in the midpole of the right kidney. 3. Possible punctate nonobstructing calculus in the left kidney. Maicol Sandoval MD Chest X-Ray 08/27/17 0000 Signed Impressions: Service Date/Time: Sunday, August 27, 2017 13:32 - CONCLUSION: Left-sided PICC line tip at the cavoatrial junction. Maicol Sandoval MD Objective Remarks GENERAL: Awake alert and oriented X3 talkative and cooperative sensory SKIN: Warm and dry. HEAD: Atraumatic. Normocephalic. EYES: Pupils equal and round. No scleral icterus. No injection or drainage. Extraocular muscles intact ENT: No nasal bleeding or discharge. Mucous membranes pink and moist. Tongue is midline NECK: Trachea midline. No JVD. Supple CARDIOVASCULAR: Regular rate and rhythm. S1 and S2 no S3 or S4 RESPIRATORY: No accessory muscle use. Clear to auscultation. Breath sounds equal bilaterally. GASTROINTESTINAL: Abdomen soft, non-tender, nondistended. Hepatic and splenic margins not palpable. MUSCULOSKELETAL: Extremities without clubbing, cyanosis, or edema. No obvious deformities. NEUROLOGICAL: Awake and alert. No obvious cranial nerve deficits. Motor grossly within normal limits. 4 out of 5 muscle strength in the arms and legs. Normal speech. PSYCHIATRIC: Appropriate mood and affect; insight and judgment normal. Procedures cc: Jessica Stubbs MD Operative Report Date of Surgery: Aug 22, 2017 Preoperative Diagnosis: 1. L3-4, L4-5 lumbar stenosis with neurogenic claudication 2. L3-4, L4-5 and L5-S1 foraminal stenosis with bilateral lower extremity radiculopathy 3. 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 L3-4, L4-5 lumbar stenosis with neurogenic claudication 2. L3-4, L4-5 and L5-S1 foraminal stenosis with bilateral lower extremity radiculopathy 3. 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 Possible deep lumbar abscess Procedure: 1. Right revision laminectomies with partial facetectomies L3-4, L4-5 and L5-S1 2. Left revision laminectomies with partial facetectomies L3-4, L4-5 and L5-S1 3. Incision and drainage lumbar abscess Anesthesia: General Surgeon: Jessica Stubbs Nail Setter(s): Dr. Rafael Beaulieu Operation and Findings: EBL: 600 cc Complications: Small CSF leak, self-contained Specimens: Multiple cultures and gross pathology sent to lab for evaluation Indications for procedure: Patient is a 72-year-old gentleman who underwent bilateral hemilaminectomies at L3-S1 in February of last year by my partner Dr. Janak Beaulieu. Initially, he had significant improvement in his radicular symptoms, however, he developed a large fluid collection requiring drainage in March. Subsequently, he developed recurrent symptoms and early May with imaging demonstrating a recurrent disc herniation requiring revision bilateral hemilaminectomies at L3-L5 by Dr. Beaulieu. Postoperatively, he had significant improvement in his symptoms for only 2 weeks with recurrent radiculopathy and neurogenic medications symptoms. Repeat imaging at the beginning of July demonstrated a recurrent disc herniation at L4-5 along with significant central and foraminal stenosis at L3-4 and foraminal stenosis at L5-S1. Options of management were discussed with the patient. Surgical intervention in the form of revision decompression with posterior instrumentation and fusion from L3-S1 with transforaminal interbody devices was discussed with the patient. Risks including but not limited to: Infection, hardware malposition or failure, CSF leak which could be persistent, neurologic injury leading to possible weakness or paralysis, pseudoarthrosis, adjacent segment disease requiring revision surgery, possible need for further surgery, worsening or no improvement in symptoms, and other unforeseen complications were all discussed with the patient. At this time he did consent to the above- mentioned procedure. Description of procedure: Patient was brought back to the operating room and general anesthesia then ensued. A Martin catheter was placed. Neuromonitoring leads were placed. An arterial line was started by anesthesia. Patient was then flipped prone onto the operating room table with all bony prominences well padded. Patient was prepped and draped in standard sterile fashion. A timeout was performed to identify the correct patient, side, site and procedures to be performed. Patient received preoperative antibiotics in the form of Ancef and vancomycin. An incision was made through the prior midline incision and extended distally approximately 2 cm. Sharp and electrocautery dissection was carried through the subcutaneous tissue and through the fascia. The remaining spinous process of L3 and S1 were utilized as midline guidelines to allow elevation of the paraspinals and scar tissue from the midline. There is a significant amount of scar tissue between the caudal edge of L3 and the superior edge of S1. This was initially left in place as dissection over the more cranial aspect of L3 and the caudal aspect of S1 was performed. Deep retractors were placed. At this time the facets and transverse processes were identified to allow for pedicle screws to be placed. However, as the right L4- 5 facet was identified and exposed there appeared to be purulent material coming from the facet. This was cultured and sent to the lab for stat interpretation. While awaiting the results, I turned my attention to the scar tissue between the caudal aspect of L3 and the cranial aspect of S1. As I started to remove this tissue, I encountered a large pocket of purulent appearing material just dorsal to the dura. This was also cultured and gross pathology sent to the lab. At this point, the initial cultures came back with moderate white blood cells with significant inflammatory tissue. My partner, Dr. Rafael Beaulieu, was available at this time to assist. As this purulence and inflamed tissue was removed, it was decided to abort the hardware insertion portion of the case given the significant concern for infection. At this time, I turned my attention to the revision decompression portion of the case. There was extensive scar tissue from the caudal aspect of L3 to the cranial aspect of S1. The edges of the remaining lamina, pars and spinous processes were freed of scar tissue and the scar tissue mobilized. The central decompression was revised at L3-4 with removal of the remaining lamina on both the right and left and extended to the lateral recesses. As the lateral recess on the right L3-4 level was removed, there appeared to be a small dural leak which sealed on its own and was self-contained. The central decompression was then revised at L5-S1 with removal of the remaining lamina on both the right and left and extended to the lateral recesses bilaterally with partial facetectomies. The remaining lamina of L4 was freed from scar tissue and then removed with the use of high-speed luisito and Kerrison rongeurs. There was noted to be significant stenosis at the level of the L4 lamina. The entirety of the L4 lamina on both the right and left was removed and the dural sac appeared to be free of significant compression at that point. The decompression was extended to the lateral recess with partial facetectomy, the right and left. The rest of the facets on both the right and left at L3-4, L4-L5 and L5-S1 were left in place as we were not planning to instrument at this time due to the concern for infection. In addition, it was elected to avoid a discectomy at this time as there was concern for infection dorsal to the dura sac and I would not want this tracked into the disc space should it be infection. The wound was thoroughly irrigated throughout the entire procedure but again with 1 L of normal saline laden with gentamicin at the end of the procedure. Hemostasis was achieved. A small piece of DuraGen was placed on the right side over the small dural leak. DuraSeal was then applied. A deep drain was placed below the fascia. The fascia was then closed with #1 PDS sutures. Subcutaneous tissue was then closed with 2-0 PDS sutures and skin closed with 2- 0 nylon sutures. Sterile dressings were applied. Patient was transferred from the operating room table onto a stretcher. Patient was then awoken from general anesthesia without complication. It should be noted the patient remained hemodynamically stable throughout the entire procedure. It should also be noted that there was difficulty obtaining baseline neuromonitoring, however, there were no appreciable adverse events throughout the procedure. Disposition: Patient will remain at bed rest with head of bed flat for at least 48 and possibly 72 hours for his small dural tear. Hemovac will be to gravity only, no suction. Will monitor intraoperative cultures and ask infectious disease to help with treatment. Jessica Stubbs MD Aug 23, 2017 07:47 <Electronically signed by Jessica Stubbs MD> 08/23/17 1311 Medications and IVs Current Medications Chlorhexidine Gluconate (Hibiclens 4% Top Soln) 1 applic ONCE TOPICAL ; Start at 06:30; Stop 08/22/17 at 17:22; Status DC Cefazolin Sodium/ Dextrose 50 ml @ 100 mls/hr TRANSIT BUS DRIVER IV Last administered on 08/22/17at 12:15; Start 08/22/17 at 06:30; Stop 08/22/17 at 17:22; Status DC Vancomycin HCl 1000 mg/Sodium Chloride 250 ml @ 250 mls/hr TRANSIT BUS DRIVER IV Last administered on 08/22/17at 06:43; Start 08/22/17 at 06:30; Stop 08/22/17 at 17:22 ; Status DC Lactated Ringer's 1,000 ml @ 30 mls/hr Q24H PRN IV SEE LABEL COMMENTS Last administered on 08/22/17at 06:20; Start 08/22/17 at 06:30; Stop 08/22/17 at 17:21 ; Status DC Sodium Chloride 500 ml @ 30 mls/hr [id number] PRN IV SEE LABEL COMMENTS; Start at 06:30; Stop 08/22/17 at 17:21; Status DC Metoprolol Tartrate (Lopressor) 25 mg TRANSIT BUS DRIVER PRN PO SEE LABEL COMMENTS; Start 08/22/17 at 06:30; Stop 08/22/17 at 17:21; Status DC Povidone Iodine (Betadine 5% Antisepsis Kit) 1 applic TRANSIT BUS DRIVER PRN EACH NARE SEE LABEL COMMENTS Last administered on 08/22/17at 06:36; Start 08/22/17 at 06:30 ; Stop 08/22/17 at 17:21; Status DC Chlorhexidine Gluconate (Chlorhexidine 2% Cloth) 3 pack TRANSIT BUS DRIVER PRN TOPICAL SEE LABEL COMMENTS Last administered on 08/22/17at 06:00; Start 08/22/17 at 06:30 ; Stop 08/22/17 at 17:21; Status DC Gentamicin Sulfate (Gentamicin Inj) 160 mg STK-MED ONCE .ROUTE Last administered on 08/22/17at 08:36; Start 08/22/17 at 07:01; Stop 08/22/17 at 07:02 ; Status DC Tranexamic Acid 2010 mg/Sodium Chloride 120.1 ml @ 200 mls/hr UNSCH IV Last administered on 08/22/17at 08:31; Start 08/22/17 at 08:00; Stop 08/22/17 at 14:00 ; Status DC Dexmedetomidine HCl (Precedex Inj) 200 mcg STK-MED ONCE .ROUTE ; Start 08/22/17 at 08:08; Stop 08/22/17 at 08:09; Status DC Vancomycin HCl (Vancomycin Inj) 1,000 mg STK-MED ONCE .ROUTE ; Start 08/22/17 at 08:43; Stop 08/22/17 at 08:44; Status DC Propofol (Diprivan 200 Mg/20 ml Inj) 600 mg STK-MED ONCE .ROUTE ; Start at 13:06; Stop 08/22/17 at 13:07; Status DC Propofol (Diprivan 200 Mg/20 ml Inj) 1,000 mg STK-MED ONCE .ROUTE ; Start 08/22 at 13:06; Stop 08/22/17 at 13:07; Status DC Propofol (Diprivan 200 Mg/20 ml Inj) 400 mg STK-MED ONCE .ROUTE ; Start at 13:07; Stop 08/22/17 at 13:08; Status DC Gentamicin Sulfate (Gentamicin Inj) 160 mg STK-MED ONCE .ROUTE Last administered on 08/22/17at 13:23; Start 08/22/17 at 13:23; Stop 08/22/17 at 13:24 ; Status DC Fentanyl Citrate (fentaNYL INJ) 400 mcg STK-MED ONCE .ROUTE ; Start 08/22/17 at 15:07; Stop 08/22/17 at 15:08; Status DC Midazolam HCl (Versed Inj) 2 mg STK-MED ONCE .ROUTE ; Start 08/22/17 at 15:07; Stop 08/22/17 at 15:08; Status DC Propofol (Diprivan 200 Mg/20 ml Inj) 400 mg STK-MED ONCE .ROUTE ; Start at 15:07; Stop 08/22/17 at 15:08; Status DC Acetaminophen 100 ml @ As Directed STK-MED ONCE IV ; Start 08/22/17 at 15:11; Stop 08/22/17 at 15:12; Status DC Dexmedetomidine HCl (Precedex Inj) 200 mcg STK-MED ONCE .ROUTE ; Start 08/22/17 at 15:11; Stop 08/22/17 at 15:12; Status DC Vancomycin HCl (Vancomycin Inj) 2,000 mg ONCE ONCE OTHER Last administered on 08/22/17at 16:00; Start 08/22/17 at 16:00; Stop 08/22/17 at 17:28; Status DC Tobramycin Sulfate (Nebcin Inj) 1,200 mg ONCE ONCE OTHER ; Start 08/22/17 at 16 :01; Stop 08/22/17 at 17:28; Status DC Sodium Chloride (NS Flush) 2 ml UNSCH PRN IV FLUSH FLUSH AFTER USING IV ACCESS ; Start 08/22/17 at 17:00 Sodium Chloride (NS Flush) 2 ml BID IV FLUSH Last administered on 09/02/17at 09: 00; Start 08/22/17 at 21:00 Miscellaneous Information (Post-op Orders (for Pharmacy)) STAT ONCE XX ; Start 08/22/17 at 17:00; Stop 08/22/17 at 17:29; Status DC Ondansetron HCl (Zofran Inj) 4 mg Q6H PRN IV PUSH NAUSEA OR VOMITING Last administered on 09/01/17at 13:29; Start 08/22/17 at 17:00 Docusate Sodium (Colace) 100 mg BID PO Last administered on 09/02/17at 07:25; Start 08/23/17 at 21:00 Bisacodyl (Dulcolax Supp) 10 mg DAILY PRN RECTAL CONSTIPATION Last administered on 08/26/17at 08:56; Start 08/22/17 at 17:00 Sodium Biphosphate/ Sodium Phosphate (Fleets Enema (Adult)) 133 ml DAILY PRN MA CONSTIPATION; Start 08/22/17 at 17:00 Naloxone HCl (Narcan Inj) 0.4 mg UNSCH PRN IV PUSH RESPIRATORY RATE LESS THAN 10; Start 08/22/17 at 17:00; Stop 08/24/17 at 07:52; Status DC Morphine Sulfate (Morphine 1 Mg/ ml MEDICAL WRITER) 30 mg UNSCH IV Last administered on at 05:54; Start 08/22/17 at 17:00; Stop 08/24/17 at 07:52; Status DC MEDICAL WRITER Dosage Infused (Pha) 1 Q8HR .XX Last administered on 08/24/17at 05:47; Start 08/22/17 at 22:00; Stop 08/24/17 at 07:52; Status DC Pharmacy Profile Note 0 ml @ 0 mls/hr UNSCH OTHER ; Start 08/22/17 at 17:00; Stop 08/27/17 at 10:42; Status DC Piperacillin Sod/ Tazobactam Sod 50 ml @ 100 mls/hr Q12H IV Last administered on 08/25/17at 05:24; Start 08/22/17 at 18:00; Stop 08/25/17 at 13:16; Status DC Miscellaneous Information ALL NURSING DEPARTME... UNSCH PRN .XX SEE LABEL COMMENTS; Start 08/22/17 at 17:04; Stop 08/23/17 at 17:03; Status DC Sodium Chloride 1,000 ml @ 125 mls/hr Q8H IV Last administered on 09/02/17at 09: 30; Start 08/22/17 at 17:30 Vancomycin HCl 1250 mg/Sodium Chloride 262.5 ml @ 250 mls/hr ONCE ONCE IV Last administered on 08/23/17at 02:33; Start 08/23/17 at 02:00; Stop 08/23/17 at 03:02; Status DC Allopurinol (Zyloprim) 300 mg DAILY PO Last administered on 09/02/17at 07:25; Start 08/23/17 at 09:00 Carvedilol (Coreg) 6.25 mg BID PO Last administered on 09/02/17at 07:25; Start at 09:00 Furosemide (Lasix) 20 mg BID PO Last administered on 08/25/17at 08:45; Start at 09:00; Stop 08/27/17 at 11:49; Status DC Gabapentin (Neurontin) 400 mg TID PO Last administered on 08/26/17at 08:54; Start 08/23/17 at 09:00; Stop 08/26/17 at 09:06; Status DC Lisinopril (Prinivil) 10 mg DAILY PO Last administered on 08/25/17at 08:46; Start 08/23/17 at 09:00; Stop 08/27/17 at 16:31; Status DC Pantoprazole Sodium (Protonix) 20 mg DAILY PO Last administered on 09/02/17at 07: 24; Start 08/23/17 at 09:00 Triamterene/HCTZ (Dyazide 37.5-25 Mg) 1 cap BID PO Last administered on at 21:36; Start 08/23/17 at 09:00; Stop 08/27/17 at 16:31; Status DC Multivitamins (Theragran) 1 tab DAILY PO Last administered on 09/02/17at 07:25; Start 08/23/17 at 09:00 Cyclobenzaprine HCl (Flexeril) 10 mg Q8H PRN PO MUSCLE SPASM Last administered on 09/01/17at 20:57; Start 08/23/17 at 07:45 Vancomycin HCl 2000 mg/Sodium Chloride 520 ml @ 250 mls/hr Q12H IV Last administered on 08/24/17at 14:00; Start 08/23/17 at 14:00; Stop 08/24/17 at 14:57 ; Status DC Miscellaneous Information SPECIFIC LAB TO BE DRAWN:VANCOMYCIN TROUGH DATE TO... ONCE ONCE .XX Last administered on 08/24/17at 13:45; Start 08/24/17 at 13:45; Stop 08/24/17 at 13:46; Status DC Morphine Sulfate (Morphine Inj) 2 mg Q4H PRN IV PUSH PAIN SCALE 8 TO 10; Start 08/24/17 at 08:00 Acetaminophen/ Hydrocodone Bitart ([place] 10-325 Mg) 1 tab Q4H PRN PO PAIN SCALE 4 TO 7 Last administered on 09/02/17at 14:43; Start 08/24/17 at 08:00 Lactated Ringer's 1,000 ml @ As Directed STK-MED ONCE IV ; Start 08/22/17 at 12 :00; Stop 08/24/17 at 08:18; Status DC Sodium Chloride 500 ml @ As Directed STK-MED ONCE IV ; Start 08/22/17 at 12:00 ; Stop 08/24/17 at 08:18; Status DC Sodium Chloride 750 ml @ As Directed STK-MED ONCE IV ; Start 08/22/17 at 12:00 ; Stop 08/24/17 at 08:18; Status DC Lidocaine HCl (Xylocaine-Mpf 1% Inj) 5 ml STK-MED ONCE OTHER ; Start 08/22/17 at 12:00; Stop 08/24/17 at 08:18; Status DC Rocuronium [place] (Zemuron Inj) 50 mg STK-MED ONCE IV PUSH ; Start 08/22/17 at 12:00; Stop 08/24/17 at 08:18; Status DC Neostigmine Methylsulfate (Prostigmine Inj) 5 mg STK-MED ONCE IV PUSH ; Start at 12:00; Stop 08/24/17 at 08:18; Status DC Glycopyrrolate (Robinul Inj) 1 mg STK-MED ONCE IV PUSH ; Start 08/22/17 at 12:00 ; Stop 08/24/17 at 08:18; Status DC Phenylephrine HCl (Neosynephrine/ NS 1000 Mcg/10ml Syr) 2,000 mcg STK-MED ONCE IV ; Start 08/22/17 at 12:00; Stop 08/24/17 at 08:18; Status DC Phenylephrine HCl (Neosynephrine Inj) 20 mg STK-MED ONCE IV ; Start 08/22/17 at 12:00; Stop 08/24/17 at 08:18; Status DC Dexamethasone Sodium Phosphate (Decadron Inj) 4 mg STK-MED ONCE IV ; Start 08/22 at 12:00; Stop 08/24/17 at 08:18; Status DC Ondansetron HCl (Zofran Inj) 4 mg STK-MED ONCE IV ; Start 08/22/17 at 12:00; Stop 08/24/17 at 08:18; Status DC Cefazolin Sodium (Ancef Inj) 2,000 mg STK-MED ONCE IV ; Start 08/22/17 at 12:00 ; Stop 08/24/17 at 08:18; Status DC Propofol (Diprivan 200 Mg/20 ml Inj) 200 mg STK-MED ONCE IV ; Start 08/22/17 at 12:00; Stop 08/24/17 at 08:18; Status DC Vancomycin HCl 2000 mg/Sodium Chloride 520 ml @ 250 mls/hr Q18H IV Last administered on 08/26/17at 08:53; Start 08/25/17 at 15:00; Stop 08/27/17 at 10:42 ; Status DC Miscellaneous Information SPECIFIC LAB TO BE DRAWN:VANCOMYCIN TROUGH DATE TO... ONCE ONCE .XX Last administered on 08/27/17at 02:45; Start 08/27/17 at 02:45; Stop 08/27/17 at 02:46; Status DC Ciprofloxacin (Ciloxan 0.3% Opth Oint) 1 applic Q8HR RIGHT EYE ; Start 08/25/17 at 14:00; Status Cancel Ciprofloxacin (Ciloxan 0.3% Opth Oint) 1 applic Q8HR LEFT EYE ; Start 08/25/17 at 14:00; Status Cancel Ciprofloxacin (Ciloxan 0.3% Opth Oint) 1 applic Q8HR EACH EYE Last administered on 08/30/17at 19:46; Start 08/25/17 at 16:00 Magnesium Hydroxide (Milk Of Magnsandhya Liq) 30 ml Q12HR PO Last administered on 09/01/17at 08:38; Start 08/25/17 at 21:00 Midodrine (Proamatine) 5 mg TID@07,12,17 PRN PO Systolic BP less than 90 mmHg; Start 08/26/17 at 09:00 Gabapentin (Neurontin) 400 mg BID PO ; Start 08/27/17 at 21:00; Stop 08/27/17 at 21:00; Status DC Gabapentin (Neurontin) 400 mg TID PO Last administered on 08/27/17at 18:20; Start 08/27/17 at 09:00; Stop 08/27/17 at 18:00; Status DC Daptomycin 1000 mg/Sodium Chloride 100 ml @ 200 mls/hr Q24H IV Last administered on 08/30/17at 13:00; Start 08/27/17 at 13:00; Stop 08/31/17 at 12:48 ; Status DC Gabapentin (Neurontin) 400 mg BID PO Last administered on 09/02/17at 07:24; Start 08/28/17 at 09:00 Sodium Bicarbonate (Sodium Bicarbonate) 650 mg Q12HR PO Last administered on 09/02/17at 07:25; Start 08/29/17 at 09:45 Alteplase, Recombinant (Cathflo Activase Inj) 2 mg ONCE ONCE INTRACATH Last administered on 08/29/17at 13:05; Start 08/29/17 at 12:45; Stop 08/29/17 at 12:52 ; Status DC Sodium Chloride 250 ml @ 15 mls/hr ONCE ONCE IV ; Start 08/29/17 at 16:30; Stop 08/30/17 at 09:09; Status DC Ergocalciferol (Drisdol) 50,000 units Q7D PO Last administered on 08/29/17at 20: 59; Start 08/29/17 at 18:00 Ceftaroline Fosamil 300 mg/ Sodium Chloride 100 ml @ 100 mls/hr Q12H IV Last administered on 08/31/17at 16:02; Start 08/31/17 at 15:00; Stop 08/31/17 at 21:04; Status DC Sodium Polystyrene Sulfonate (Kayexalate Liq) 15 gm ONCE ONCE PO Last administered on 08/31/17at 16:04; Start 08/31/17 at 14:15; Stop 08/31/17 at 14:34; Status DC Tamsulosin HCl (Flomax) 0.4 mg ONCE ONCE PO Last administered on 08/31/17at 16: 03; Start 08/31/17 at 14:45; Stop 08/31/17 at 14:46; Status DC Tamsulosin HCl (Flomax) 0.4 mg DAILY PO Last administered on 09/02/17at 07:24; Start 09/01/17 at 09:00 Patiromer (Veltassa) 8.4 gm STAT ONCE PO Last administered on 08/31/17at 20:25; Start 08/31/17 at 19:45; Stop 08/31/17 at 19:46; Status DC Ceftaroline Fosamil 300 mg/ Sodium Chloride 100 ml @ 100 mls/hr Q12H IV Last administered on 09/02/17at 14:46; Start 09/01/17 at 03:00 A/P Problem List: (1) Lumbar post-laminectomy syndrome ICD Code: M96.1 - Postlaminectomy syndrome, not elsewhere classified (2) Lumbar spinal stenosis ICD Code: M48.061 - Spinal stenosis, lumbar region without neurogenic claudication Status: Chronic (3) HTN (hypertension) ICD Code: I10 - Essential (primary) hypertension Status: Chronic (4) History of gout ICD Code: Z87.39 - Personal history of other diseases of the musculoskeletal system and connective tissue Status: Chronic (5) S/P lumbar laminectomy ICD Code: Z98.890 - Other specified postprocedural states Assessment and Plan Assessment and Plan Acute Renal failure Etiology is unclear, most likely due to previous IV vancomycin administration. Following Creatinine trend, mild increase over 3.0 and this may have been exacerbated by recent urinary retention from trial of voiding for Martin removal yesterday. Nephrology Dr. Oh currently following; Martin catheter reinserted yesterday due to urinary retention Left renal complex mass- Patient has been counseled by nephrology to follow up with his urologist Dr. Pettit for further outpatient workup Revision bilateral L3,4,5,S1 laminectomies Surgery performed 08/22/17 - continue post operative care per orthopedic surgery ; Continue physical therapy. 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 labs Problem Qualifiers (1) HTN (hypertension): Qualified Codes: I10 - Essential (primary) hypertension Derrick Neal DO Sep 02, 2017 14:58
[2017-09-02 16:00] VITALS: BP 111/63; PULSE 79; RESP 17; TEMP 96.3; O2SAT 94
[2017-09-02 20:00] VITALS: BP 100/57; PULSE 79; RESP 18; TEMP 96.1; O2SAT 95
[2017-09-02 23:58] VITALS: BP 108/61; PULSE 73; RESP 18; TEMP 97.1; O2SAT 96
[2017-09-03] VITALS (8 sets, daily range): BP systolic 104–131; BP diastolic 61–81; PULSE 80–88; RESP 16–18; TEMP 96.6–97.7; O2SAT 93–95
[2017-09-03] MEDS: CEFTAROLINE INJ 300 MG in SODIUM CHLORIDE 0.9% INJ 100 ML IV SCH ×3 (02:27→19:36)
[2017-09-03] MEDS: ACETAMINOPHEN/HYDROcodone 325 MG/10 MG TAB PO PRN ×3 (02:27→20:30)
[2017-09-03 05:30] LABS: AUTOMATED NEUTROPHIL # 3.1 TH/MM3 (1.8-7.7); BASOPHIL # 0.1 TH/MM3 (0-0.2); BASOPHIL % 1.2 % (0.0-2.0); EOSINOPHIL # 0.3 TH/MM3 (0-0.4); EOSINOPHIL % 5.7 % (0.0-4.0); LYMPH % 25.1 % (9.0-44.0); LYMPHOCYTE # 1.3 TH/MM3 (1.0-4.8); MEAN CELL VOLUME 90.5 FL (80.0-100.0); MEAN CORPUSCULAR HEMOGLOBIN 29.2 PG (27.0-34.0); MEAN CORPUSCULAR HGB CONC 32.3 % (32.0-36.0); MEAN PLATELET VOLUME 8.6 FL (7.0-11.0); MONO % 8.4 % (0.0-8.0); MONOCYTE # 0.4 TH/MM3 (0-0.9); NEUT % 59.6 % (16.0-70.0); PLATELET COUNT 287 TH/MM3 (150-450); RED CELL DISTRIBUTION WIDTH 18.2 % (11.6-17.2); WHITE BLOOD COUNT 5.2 TH/MM3 (4.0-11.0)
[2017-09-03 05:37] LABS: CALCIUM 8.8 MG/DL (8.5-10.1); CREATININE 3.66 MG/DL (0.60-1.30); MAGNESIUM 2.1 MG/DL (1.5-2.5)
[2017-09-03 05:38] LABS: HEMOGLOBIN 6.4 GM/DL (13.0-17.0); PHOSPHORUS 4.5 MG/DL (2.5-4.9)
[2017-09-03] MEDS ORDERED: SODIUM CHLOR 0.9% 250 ML INJ 250 ML IV ONE ×2 (06:00→08:15)
[2017-09-03] MEDS: CIPROFLOXACIN 0.3% OPTH OINT 3.5 GM TUBO EACH EYE SCH ×3 (06:31→22:00)
[2017-09-03] MEDS ORDERED: FUROSEMIDE 20 MG/2 ML VIAL IV PUSH ONE (08:15)
[2017-09-03] MEDS ORDERED: diphenhydrAMINE HCL 25 MG CAP PO PRN (08:15)
[2017-09-03] MEDS: MAGNESIUM HYDROXIDE SUSP 30 ML CUP PO SCH ×2 (09:00→20:27)
[2017-09-03] MEDS: SODIUM BICARBONATE 650 MG TAB PO SCH ×2 (09:04→20:27)
[2017-09-03] MEDS: TAMSULOSIN HCL 0.4 MG CAP PO SCH (09:04)
[2017-09-03] MEDS: DOCUSATE SODIUM 100 MG CAP PO SCH ×2 (09:04→20:27)
[2017-09-03] MEDS: ALLOPURINOL 300 MG TAB PO SCH (09:04)
[2017-09-03] MEDS: CARVEDILOL 6.25 MG TAB PO SCH ×2 (09:04→20:27)
[2017-09-03] MEDS: PANTOPRAZOLE SOD 20 MG DELAYED RELEASE TAB PO SCH (09:05)
[2017-09-03] MEDS: MULTIVITAMIN TAB PO SCH (09:05)
[2017-09-03] MEDS: GABAPENTIN 400 MG CAP PO SCH ×2 (09:05→20:27)
[2017-09-03] MEDS: SODIUM CHLORIDE 0.9% FLUSH 10 ML FLUSH IV FLUSH SCH ×2 (09:06→20:30)
--- NOTE | 2017-09-03 10:29 | PD.ORT.PN ---
Subjective Post Op Day #: 12 Subjective Remarks Patient reports fatigue. Minimal pain to back. Objective Vitals Vital Signs Date Time Temp Pulse Resp B/P (MAP) Pulse Ox O2 Delivery O2 Flow Rate FiO2 09/03/17 08:00 97.1 87 16 125/70 (88) 94 09/02/17 23:58 97.1 73 18 108/61 (77) 96 09/02/17 20:45 Room Air 09/02/17 20:00 96.1 79 18 100/57 (71) 95 09/02/17 16:00 96.3 79 17 111/63 (79) 94 09/02/17 12:00 97.6 87 17 112/73 (86) 95 I/O 09/02/17 09/02/17 09/02/17 09/03/17 09/03/17 09/03/17 07:00 15:00 23:00 07:00 15:00 23:00 Intake Total 1330 ml 480 ml 480 ml Output Total 1550 ml 1075 ml 900 ml Balance -220 ml -595 ml -420 ml Intake Oral 480 ml 480 ml 480 ml IV Total 850 ml Output Urine Total 1550 ml 1075 ml 900 ml # Voids 2 # Bowel Movements 0 0 Result Diagram: 09/03/17 0500 09/03/17 0500 Objective Remarks Awake, alert, no acute distress. Nonlabored respirations Bilateral lower extremities: neuro intact. Sensation intact. Brisk cap refill Dressing to back C/D/I. Assessment & Plan Ortho Post Op Day #: 12 Problem List: Assessment and Plan 72-year-old man now postop day 12 status post revision bilateral L3 4, L4 5 and L5-S1 laminectomies. With purulence Intra-Op and therefore hardware placement was aborted and only decompression performed. Small intraoperative dural leak. 1. Continue Patient mobilizing out of bed 1-2 times daily with brace on. 2. chemical DVT prophylaxis was contra-indicated at this time per med consult, cont with SCDs (applied) and mobilization 3. Intraoperative cultures show Staphylococcus Lugadensis. ABX adjusted by ID consult. 4. nephrology following renal insufficiency 5. discharge planning for rehabilitation once medically cleared, hopefully early next week. 6. Anemia being managed by medical. Patient to receive 1 unit PRBCs. Gage Merritt Sep 03, 2017 10:29
[2017-09-03] MEDS: CYCLOBENZAPRINE HCL 10 MG TAB PO PRN (12:15)
[2017-09-03] MEDS: SODIUM CHLOR 0.9% 1000 ML INJ 1,000 ML IV SCH ×3 (12:16→16:47)
--- NOTE | 2017-09-03 14:04 | HHI.PR ---
Subjective Remarks Follow-up on acute renal failure and anemia No current complaints states he got tired and had some pain after working hard with physical therapy 2-4 WILL TRANSFUSE 3 UNITS PRBC AM LABS INCREASE ACTIVITY DW RN AND PATIENT AND FAMILY Objective Vitals Vital Signs Date Time Temp Pulse Resp B/P (MAP) Pulse Ox O2 Delivery O2 Flow Rate FiO2 09/03/17 12:00 97.7 88 18 104/62 (76) 93 09/03/17 08:00 97.1 87 16 125/70 (88) 94 09/02/17 23:58 97.1 73 18 108/61 (77) 96 09/02/17 20:45 Room Air 09/02/17 20:00 96.1 79 18 100/57 (71) 95 09/02/17 16:00 96.3 79 17 111/63 (79) 94 I/O 09/02/17 09/02/17 09/02/17 09/03/17 09/03/17 09/03/17 07:00 15:00 23:00 07:00 15:00 23:00 Intake Total 1330 ml 480 ml 480 ml Output Total 1550 ml 1075 ml 900 ml Balance -220 ml -595 ml -420 ml Intake Oral 480 ml 480 ml 480 ml IV Total 850 ml Output Urine Total 1550 ml 1075 ml 900 ml # Voids 2 # Bowel Movements 0 0 Result Diagram: 09/03/17 0500 09/03/17 0500 Other Results Laboratory Tests Test 08/31/17 20:30 09/01/17 05:25 09/03/17 05:00 Total Protein 5.6 GM/DL Immunoglobulin G Total 716 MG/DL Immunoglobulin A 167 MG/DL Immunoglobulin M 36 MG/DL Immunoglobulin [place]/Lambda Ratio 1.47 [place] Light Chain Analysis 169 MG/DL Lambda Light Chain Analysis 115 MG/DL Blood Urea Nitrogen 42 MG/DL 39 MG/DL Creatinine 3.09 MG/DL 3.66 MG/DL Random Glucose 104 MG/DL 101 MG/DL Calcium Level 9.3 MG/DL 8.8 MG/DL Sodium Level 134 MEQ/L 139 MEQ/L Potassium Level 5.1 MEQ/L 4.7 MEQ/L Chloride Level 104 MEQ/L 108 MEQ/L Carbon Dioxide Level 23.2 MEQ/L 23.0 MEQ/L Anion Gap 7 MEQ/L 8 MEQ/L Estimat Glomerular Filtration Rate 20 ML/MIN 17 ML/MIN White Blood Count 5.2 TH/MM3 Red Blood Count 2.20 MIL/MM3 Hemoglobin 6.4 GM/DL Hematocrit 20.0 % Mean Corpuscular Volume 90.5 FL Mean Corpuscular Hemoglobin 29.2 PG Mean Corpuscular Hemoglobin Concent 32.3 % Red Cell Distribution Width 18.2 % Platelet Count 287 TH/MM3 Mean Platelet Volume 8.6 FL Neutrophils (%) (Auto) 59.6 % Lymphocytes (%) (Auto) 25.1 % Monocytes (%) (Auto) 8.4 % Eosinophils (%) (Auto) 5.7 % Basophils (%) (Auto) 1.2 % Neutrophils # (Auto) 3.1 TH/MM3 Lymphocytes # (Auto) 1.3 TH/MM3 Monocytes # (Auto) 0.4 TH/MM3 Eosinophils # (Auto) 0.3 TH/MM3 Basophils # (Auto) 0.1 TH/MM3 CBC Comment DIFF FINAL Differential Comment Albumin 2.0 GM/DL Phosphorus Level 4.5 MG/DL Magnesium Level 2.1 MG/DL Imaging Last Impressions Renal Ultrasound 08/27/17 0000 Signed Impressions: Service Date/Time: Sunday, August 27, 2017 17:45 - CONCLUSION: 1. No evidence hydronephrosis. 2. Complex cystic or solid mass in the lower pole the right kidney and complexes at mass in the midpole of the right kidney. 3. Possible punctate nonobstructing calculus in the left kidney. Maicol Sandoval MD Chest X-Ray 08/27/17 0000 Signed Impressions: Service Date/Time: Sunday, August 27, 2017 13:32 - CONCLUSION: Left-sided PICC line tip at the cavoatrial junction. Maicol Sandoval MD Objective Remarks GENERAL: Awake alert and oriented X3 talkative and cooperative sensory SKIN: Warm and dry. HEAD: Atraumatic. Normocephalic. EYES: Pupils equal and round. No scleral icterus. No injection or drainage. Extraocular muscles intact ENT: No nasal bleeding or discharge. Mucous membranes pink and moist. Tongue is midline NECK: Trachea midline. No JVD. Supple CARDIOVASCULAR: Regular rate and rhythm. S1 and S2 no S3 or S4 RESPIRATORY: No accessory muscle use. Clear to auscultation. Breath sounds equal bilaterally. GASTROINTESTINAL: Abdomen soft, non-tender, nondistended. Hepatic and splenic margins not palpable. MUSCULOSKELETAL: Extremities without clubbing, cyanosis, or edema. No obvious deformities. NEUROLOGICAL: Awake and alert. No obvious cranial nerve deficits. Motor grossly within normal limits. 4 out of 5 muscle strength in the arms and legs. Normal speech. PSYCHIATRIC: Appropriate mood and affect; insight and judgment normal. Procedures cc: Jessica Stubbs MD Operative Report Date of Surgery: Aug 22, 2017 Preoperative Diagnosis: 1. L3-4, L4-5 lumbar stenosis with neurogenic claudication 2. L3-4, L4-5 and L5-S1 foraminal stenosis with bilateral lower extremity radiculopathy 3. 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 L3-4, L4-5 lumbar stenosis with neurogenic claudication 2. L3-4, L4-5 and L5-S1 foraminal stenosis with bilateral lower extremity radiculopathy 3. 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 Possible deep lumbar abscess Procedure: 1. Right revision laminectomies with partial facetectomies L3-4, L4-5 and L5-S1 2. Left revision laminectomies with partial facetectomies L3-4, L4-5 and L5-S1 3. Incision and drainage lumbar abscess Anesthesia: General Surgeon: Jessica Stubbs Accounting Recruiter(s): Dr. Rafael Beaulieu Operation and Findings: EBL: 600 cc Complications: Small CSF leak, self-contained Specimens: Multiple cultures and gross pathology sent to lab for evaluation Indications for procedure: Patient is a 72-year-old gentleman who underwent bilateral hemilaminectomies at L3-S1 in February of last year by my partner Dr. Janak Beauileu. Initially, he had significant improvement in his radicular symptoms, however, he developed a large fluid collection requiring drainage in March. Subsequently, he developed recurrent symptoms and early May with imaging demonstrating a recurrent disc herniation requiring revision bilateral hemilaminectomies at L3-L5 by Dr. Beaulieu. Postoperatively, he had significant improvement in his symptoms for only 2 weeks with recurrent radiculopathy and neurogenic medications symptoms. Repeat imaging at the beginning of July demonstrated a recurrent disc herniation at L4-5 along with significant central and foraminal stenosis at L3-4 and foraminal stenosis at L5-S1. Options of management were discussed with the patient. Surgical intervention in the form of revision decompression with posterior instrumentation and fusion from L3-S1 with transforaminal interbody devices was discussed with the patient. Risks including but not limited to: Infection, hardware malposition or failure, CSF leak which could be persistent, neurologic injury leading to possible weakness or paralysis, pseudoarthrosis, adjacent segment disease requiring revision surgery, possible need for further surgery, worsening or no improvement in symptoms, and other unforeseen complications were all discussed with the patient. At this time he did consent to the above- mentioned procedure. Description of procedure: Patient was brought back to the operating room and general anesthesia then ensued. A Martin catheter was placed. Neuromonitoring leads were placed. An arterial line was started by anesthesia. Patient was then flipped prone onto the operating room table with all bony prominences well padded. Patient was prepped and draped in standard sterile fashion. A timeout was performed to identify the correct patient, side, site and procedures to be performed. Patient received preoperative antibiotics in the form of Ancef and vancomycin. An incision was made through the prior midline incision and extended distally approximately 2 cm. Sharp and electrocautery dissection was carried through the subcutaneous tissue and through the fascia. The remaining spinous process of L3 and S1 were utilized as midline guidelines to allow elevation of the paraspinals and scar tissue from the midline. There is a significant amount of scar tissue between the caudal edge of L3 and the superior edge of S1. This was initially left in place as dissection over the more cranial aspect of L3 and the caudal aspect of S1 was performed. Deep retractors were placed. At this time the facets and transverse processes were identified to allow for pedicle screws to be placed. However, as the right L4- 5 facet was identified and exposed there appeared to be purulent material coming from the facet. This was cultured and sent to the lab for stat interpretation. While awaiting the results, I turned my attention to the scar tissue between the caudal aspect of L3 and the cranial aspect of S1. As I started to remove this tissue, I encountered a large pocket of purulent appearing material just dorsal to the dura. This was also cultured and gross pathology sent to the lab. At this point, the initial cultures came back with moderate white blood cells with significant inflammatory tissue. My partner, Dr. Rafael Beaulieu, was available at this time to assist. As this purulence and inflamed tissue was removed, it was decided to abort the hardware insertion portion of the case given the significant concern for infection. At this time, I turned my attention to the revision decompression portion of the case. There was extensive scar tissue from the caudal aspect of L3 to the cranial aspect of S1. The edges of the remaining lamina, pars and spinous processes were freed of scar tissue and the scar tissue mobilized. The central decompression was revised at L3-4 with removal of the remaining lamina on both the right and left and extended to the lateral recesses. As the lateral recess on the right L3-4 level was removed, there appeared to be a small dural leak which sealed on its own and was self-contained. The central decompression was then revised at L5-S1 with removal of the remaining lamina on both the right and left and extended to the lateral recesses bilaterally with partial facetectomies. The remaining lamina of L4 was freed from scar tissue and then removed with the use of high-speed luisito and Kerrison rongeurs. There was noted to be significant stenosis at the level of the L4 lamina. The entirety of the L4 lamina on both the right and left was removed and the dural sac appeared to be free of significant compression at that point. The decompression was extended to the lateral recess with partial facetectomy, the right and left. The rest of the facets on both the right and left at L3-4, L4-L5 and L5-S1 were left in place as we were not planning to instrument at this time due to the concern for infection. In addition, it was elected to avoid a discectomy at this time as there was concern for infection dorsal to the dura sac and I would not want this tracked into the disc space should it be infection. The wound was thoroughly irrigated throughout the entire procedure but again with 1 L of normal saline laden with gentamicin at the end of the procedure. Hemostasis was achieved. A small piece of DuraGen was placed on the right side over the small dural leak. DuraSeal was then applied. A deep drain was placed below the fascia. The fascia was then closed with #1 PDS sutures. Subcutaneous tissue was then closed with 2-0 PDS sutures and skin closed with 2- 0 nylon sutures. Sterile dressings were applied. Patient was transferred from the operating room table onto a stretcher. Patient was then awoken from general anesthesia without complication. It should be noted the patient remained hemodynamically stable throughout the entire procedure. It should also be noted that there was difficulty obtaining baseline neuromonitoring, however, there were no appreciable adverse events throughout the procedure. Disposition: Patient will remain at bed rest with head of bed flat for at least 48 and possibly 72 hours for his small dural tear. Hemovac will be to gravity only, no suction. Will monitor intraoperative cultures and ask infectious disease to help with treatment. Jessica Stubbs MD Aug 23, 2017 07:47 <Electronically signed by Jessica Stubbs MD> 08/23/17 1311 Medications and IVs Current Medications Chlorhexidine Gluconate (Hibiclens 4% Top Soln) 1 applic ONCE TOPICAL ; Start at 06:30; Stop 08/22/17 at 17:22; Status DC Cefazolin Sodium/ Dextrose 50 ml @ 100 mls/hr ROUTE SERVICE REPRESENTATIVE IV Last administered on 08/22/17at 12:15; Start 08/22/17 at 06:30; Stop 08/22/17 at 17:22; Status DC Vancomycin HCl 1000 mg/Sodium Chloride 250 ml @ 250 mls/hr ROUTE SERVICE REPRESENTATIVE IV Last administered on 08/22/17at 06:43; Start 08/22/17 at 06:30; Stop 08/22/17 at 17:22 ; Status DC Lactated Ringer's 1,000 ml @ 30 mls/hr Q24H PRN IV SEE LABEL COMMENTS Last administered on 08/22/17at 06:20; Start 08/22/17 at 06:30; Stop 08/22/17 at 17:21 ; Status DC Sodium Chloride 500 ml @ 30 mls/hr [id number] PRN IV SEE LABEL COMMENTS; Start at 06:30; Stop 08/22/17 at 17:21; Status DC Metoprolol Tartrate (Lopressor) 25 mg ROUTE SERVICE REPRESENTATIVE PRN PO SEE LABEL COMMENTS; Start 08/22/17 at 06:30; Stop 08/22/17 at 17:21; Status DC Povidone Iodine (Betadine 5% Antisepsis Kit) 1 applic ROUTE SERVICE REPRESENTATIVE PRN EACH NARE SEE LABEL COMMENTS Last administered on 08/22/17at 06:36; Start 08/22/17 at 06:30 ; Stop 08/22/17 at 17:21; Status DC Chlorhexidine Gluconate (Chlorhexidine 2% Cloth) 3 pack ROUTE SERVICE REPRESENTATIVE PRN TOPICAL SEE LABEL COMMENTS Last administered on 08/22/17at 06:00; Start 08/22/17 at 06:30 ; Stop 08/22/17 at 17:21; Status DC Gentamicin Sulfate (Gentamicin Inj) 160 mg STK-MED ONCE .ROUTE Last administered on 08/22/17at 08:36; Start 08/22/17 at 07:01; Stop 08/22/17 at 07:02 ; Status DC Tranexamic Acid 2010 mg/Sodium Chloride 120.1 ml @ 200 mls/hr UNSCH IV Last administered on 08/22/17at 08:31; Start 08/22/17 at 08:00; Stop 08/22/17 at 14:00 ; Status DC Dexmedetomidine HCl (Precedex Inj) 200 mcg STK-MED ONCE .ROUTE ; Start 08/22/17 at 08:08; Stop 08/22/17 at 08:09; Status DC Vancomycin HCl (Vancomycin Inj) 1,000 mg STK-MED ONCE .ROUTE ; Start 08/22/17 at 08:43; Stop 08/22/17 at 08:44; Status DC Propofol (Diprivan 200 Mg/20 ml Inj) 600 mg STK-MED ONCE .ROUTE ; Start at 13:06; Stop 08/22/17 at 13:07; Status DC Propofol (Diprivan 200 Mg/20 ml Inj) 1,000 mg STK-MED ONCE .ROUTE ; Start 08/22 at 13:06; Stop 08/22/17 at 13:07; Status DC Propofol (Diprivan 200 Mg/20 ml Inj) 400 mg STK-MED ONCE .ROUTE ; Start at 13:07; Stop 08/22/17 at 13:08; Status DC Gentamicin Sulfate (Gentamicin Inj) 160 mg STK-MED ONCE .ROUTE Last administered on 08/22/17at 13:23; Start 08/22/17 at 13:23; Stop 08/22/17 at 13:24 ; Status DC Fentanyl Citrate (fentaNYL INJ) 400 mcg STK-MED ONCE .ROUTE ; Start 08/22/17 at 15:07; Stop 08/22/17 at 15:08; Status DC Midazolam HCl (Versed Inj) 2 mg STK-MED ONCE .ROUTE ; Start 08/22/17 at 15:07; Stop 08/22/17 at 15:08; Status DC Propofol (Diprivan 200 Mg/20 ml Inj) 400 mg STK-MED ONCE .ROUTE ; Start at 15:07; Stop 08/22/17 at 15:08; Status DC Acetaminophen 100 ml @ As Directed STK-MED ONCE IV ; Start 08/22/17 at 15:11; Stop 08/22/17 at 15:12; Status DC Dexmedetomidine HCl (Precedex Inj) 200 mcg STK-MED ONCE .ROUTE ; Start 08/22/17 at 15:11; Stop 08/22/17 at 15:12; Status DC Vancomycin HCl (Vancomycin Inj) 2,000 mg ONCE ONCE OTHER Last administered on 08/22/17at 16:00; Start 08/22/17 at 16:00; Stop 08/22/17 at 17:28; Status DC Tobramycin Sulfate (Nebcin Inj) 1,200 mg ONCE ONCE OTHER ; Start 08/22/17 at 16 :01; Stop 08/22/17 at 17:28; Status DC Sodium Chloride (NS Flush) 2 ml UNSCH PRN IV FLUSH FLUSH AFTER USING IV ACCESS ; Start 08/22/17 at 17:00 Sodium Chloride (NS Flush) 2 ml BID IV FLUSH Last administered on 09/03/17at 09: 06; Start 08/22/17 at 21:00 Miscellaneous Information (Post-op Orders (for Pharmacy)) STAT ONCE XX ; Start 08/22/17 at 17:00; Stop 08/22/17 at 17:29; Status DC Ondansetron HCl (Zofran Inj) 4 mg Q6H PRN IV PUSH NAUSEA OR VOMITING Last administered on 09/01/17at 13:29; Start 08/22/17 at 17:00 Docusate Sodium (Colace) 100 mg BID PO Last administered on 09/03/17at 09:04; Start 08/23/17 at 21:00 Bisacodyl (Dulcolax Supp) 10 mg DAILY PRN RECTAL CONSTIPATION Last administered on 08/26/17at 08:56; Start 08/22/17 at 17:00 Sodium Biphosphate/ Sodium Phosphate (Fleets Enema (Adult)) 133 ml DAILY PRN [place] CONSTIPATION; Start 08/22/17 at 17:00 Naloxone HCl (Narcan Inj) 0.4 mg UNSCH PRN IV PUSH RESPIRATORY RATE LESS THAN 10; Start 08/22/17 at 17:00; Stop 08/24/17 at 07:52; Status DC Morphine Sulfate (Morphine 1 Mg/ ml FLAT SCREEN WORKER) 30 mg UNSCH IV Last administered on at 05:54; Start 08/22/17 at 17:00; Stop 08/24/17 at 07:52; Status DC FLAT SCREEN WORKER Dosage Infused (Pha) 1 Q8HR .XX Last administered on 08/24/17at 05:47; Start 08/22/17 at 22:00; Stop 08/24/17 at 07:52; Status DC Pharmacy Profile Note 0 ml @ 0 mls/hr UNSCH OTHER ; Start 08/22/17 at 17:00; Stop 08/27/17 at 10:42; Status DC Piperacillin Sod/ Tazobactam Sod 50 ml @ 100 mls/hr Q12H IV Last administered on 08/25/17at 05:24; Start 08/22/17 at 18:00; Stop 08/25/17 at 13:16; Status DC Miscellaneous Information ALL NURSING DEPARTME... UNSCH PRN .XX SEE LABEL COMMENTS; Start 08/22/17 at 17:04; Stop 08/23/17 at 17:03; Status DC Sodium Chloride 1,000 ml @ 125 mls/hr Q8H IV Last administered on 09/02/17at 17: 30; Start 08/22/17 at 17:30 Vancomycin HCl 1250 mg/Sodium Chloride 262.5 ml @ 250 mls/hr ONCE ONCE IV Last administered on 08/23/17at 02:33; Start 08/23/17 at 02:00; Stop 08/23/17 at 03:02; Status DC Allopurinol (Zyloprim) 300 mg DAILY PO Last administered on 09/03/17at 09:04; Start 08/23/17 at 09:00 Carvedilol (Coreg) 6.25 mg BID PO Last administered on 09/03/17at 09:04; Start at 09:00 Furosemide (Lasix) 20 mg BID PO Last administered on 08/25/17at 08:45; Start at 09:00; Stop 08/27/17 at 11:49; Status DC Gabapentin (Neurontin) 400 mg TID PO Last administered on 08/26/17at 08:54; Start 08/23/17 at 09:00; Stop 08/26/17 at 09:06; Status DC Lisinopril (Prinivil) 10 mg DAILY PO Last administered on 08/25/17at 08:46; Start 08/23/17 at 09:00; Stop 08/27/17 at 16:31; Status DC Pantoprazole Sodium (Protonix) 20 mg DAILY PO Last administered on 09/03/17at 09: 05; Start 08/23/17 at 09:00 Triamterene/HCTZ (Dyazide 37.5-25 Mg) 1 cap BID PO Last administered on at 21:36; Start 08/23/17 at 09:00; Stop 08/27/17 at 16:31; Status DC Multivitamins (Theragran) 1 tab DAILY PO Last administered on 09/03/17at 09:05; Start 08/23/17 at 09:00 Cyclobenzaprine HCl (Flexeril) 10 mg Q8H PRN PO MUSCLE SPASM Last administered on 09/03/17at 12:15; Start 08/23/17 at 07:45 Vancomycin HCl 2000 mg/Sodium Chloride 520 ml @ 250 mls/hr Q12H IV Last administered on 08/24/17at 14:00; Start 08/23/17 at 14:00; Stop 08/24/17 at 14:57 ; Status DC Miscellaneous Information SPECIFIC LAB TO BE DRAWN:VANCOMYCIN TROUGH DATE TO... ONCE ONCE .XX Last administered on 08/24/17at 13:45; Start 08/24/17 at 13:45; Stop 08/24/17 at 13:46; Status DC Morphine Sulfate (Morphine Inj) 2 mg Q4H PRN IV PUSH PAIN SCALE 8 TO 10; Start 08/24/17 at 08:00 Acetaminophen/ Hydrocodone Bitart ([place] 10-325 Mg) 1 tab Q4H PRN PO PAIN SCALE 4 TO 7 Last administered on 09/03/17at 06:32; Start 08/24/17 at 08:00 Lactated Ringer's 1,000 ml @ As Directed STK-MED ONCE IV ; Start 08/22/17 at 12 :00; Stop 08/24/17 at 08:18; Status DC Sodium Chloride 500 ml @ As Directed STK-MED ONCE IV ; Start 08/22/17 at 12:00 ; Stop 08/24/17 at 08:18; Status DC Sodium Chloride 750 ml @ As Directed STK-MED ONCE IV ; Start 08/22/17 at 12:00 ; Stop 08/24/17 at 08:18; Status DC Lidocaine HCl (Xylocaine-Mpf 1% Inj) 5 ml STK-MED ONCE OTHER ; Start 08/22/17 at 12:00; Stop 08/24/17 at 08:18; Status DC Rocuronium [place] (Zemuron Inj) 50 mg STK-MED ONCE IV PUSH ; Start 08/22/17 at 12:00; Stop 08/24/17 at 08:18; Status DC Neostigmine Methylsulfate (Prostigmine Inj) 5 mg STK-MED ONCE IV PUSH ; Start at 12:00; Stop 08/24/17 at 08:18; Status DC Glycopyrrolate (Robinul Inj) 1 mg STK-MED ONCE IV PUSH ; Start 08/22/17 at 12:00 ; Stop 08/24/17 at 08:18; Status DC Phenylephrine HCl (Neosynephrine/ NS 1000 Mcg/10ml Syr) 2,000 mcg STK-MED ONCE IV ; Start 08/22/17 at 12:00; Stop 08/24/17 at 08:18; Status DC Phenylephrine HCl (Neosynephrine Inj) 20 mg STK-MED ONCE IV ; Start 08/22/17 at 12:00; Stop 08/24/17 at 08:18; Status DC Dexamethasone Sodium Phosphate (Decadron Inj) 4 mg STK-MED ONCE IV ; Start 08/22 at 12:00; Stop 08/24/17 at 08:18; Status DC Ondansetron HCl (Zofran Inj) 4 mg STK-MED ONCE IV ; Start 08/22/17 at 12:00; Stop 08/24/17 at 08:18; Status DC Cefazolin Sodium (Ancef Inj) 2,000 mg STK-MED ONCE IV ; Start 08/22/17 at 12:00 ; Stop 08/24/17 at 08:18; Status DC Propofol (Diprivan 200 Mg/20 ml Inj) 200 mg STK-MED ONCE IV ; Start 08/22/17 at 12:00; Stop 08/24/17 at 08:18; Status DC Vancomycin HCl 2000 mg/Sodium Chloride 520 ml @ 250 mls/hr Q18H IV Last administered on 08/26/17at 08:53; Start 08/25/17 at 15:00; Stop 08/27/17 at 10:42 ; Status DC Miscellaneous Information SPECIFIC LAB TO BE DRAWN:VANCOMYCIN TROUGH DATE TO... ONCE ONCE .XX Last administered on 08/27/17at 02:45; Start 08/27/17 at 02:45; Stop 08/27/17 at 02:46; Status DC Ciprofloxacin (Ciloxan 0.3% Opth Oint) 1 applic Q8HR RIGHT EYE ; Start 08/25/17 at 14:00; Status Cancel Ciprofloxacin (Ciloxan 0.3% Opth Oint) 1 applic Q8HR LEFT EYE ; Start 08/25/17 at 14:00; Status Cancel Ciprofloxacin (Ciloxan 0.3% Opth Oint) 1 applic Q8HR EACH EYE Last administered on 08/30/17at 19:46; Start 08/25/17 at 16:00 Magnesium Hydroxide (Milk Of Magnsandhya Liq) 30 ml Q12HR PO Last administered on 09/02/17at 20:44; Start 08/25/17 at 21:00 Midodrine (Proamatine) 5 mg TID@07,12,17 PRN PO Systolic BP less than 90 mmHg; Start 08/26/17 at 09:00 Gabapentin (Neurontin) 400 mg BID PO ; Start 08/27/17 at 21:00; Stop 08/27/17 at 21:00; Status DC Gabapentin (Neurontin) 400 mg TID PO Last administered on 08/27/17at 18:20; Start 08/27/17 at 09:00; Stop 08/27/17 at 18:00; Status DC Daptomycin 1000 mg/Sodium Chloride 100 ml @ 200 mls/hr Q24H IV Last administered on 08/30/17at 13:00; Start 08/27/17 at 13:00; Stop 08/31/17 at 12:48 ; Status DC Gabapentin (Neurontin) 400 mg BID PO Last administered on 09/03/17at 09:05; Start 08/28/17 at 09:00 Sodium Bicarbonate (Sodium Bicarbonate) 650 mg Q12HR PO Last administered on 09/03/17at 09:04; Start 08/29/17 at 09:45 Alteplase, Recombinant (Cathflo Activase Inj) 2 mg ONCE ONCE INTRACATH Last administered on 08/29/17at 13:05; Start 08/29/17 at 12:45; Stop 08/29/17 at 12:52 ; Status DC Sodium Chloride 250 ml @ 15 mls/hr ONCE ONCE IV ; Start 08/29/17 at 16:30; Stop 08/30/17 at 09:09; Status DC Ergocalciferol (Drisdol) 50,000 units Q7D PO Last administered on 08/29/17at 20: 59; Start 08/29/17 at 18:00 Ceftaroline Fosamil 300 mg/ Sodium Chloride 100 ml @ 100 mls/hr Q12H IV Last administered on 08/31/17at 16:02; Start 08/31/17 at 15:00; Stop 08/31/17 at 21:04; Status DC Sodium Polystyrene Sulfonate (Kayexalate Liq) 15 gm ONCE ONCE PO Last administered on 08/31/17at 16:04; Start 08/31/17 at 14:15; Stop 08/31/17 at 14:34; Status DC Tamsulosin HCl (Flomax) 0.4 mg ONCE ONCE PO Last administered on 08/31/17at 16: 03; Start 08/31/17 at 14:45; Stop 08/31/17 at 14:46; Status DC Tamsulosin HCl (Flomax) 0.4 mg DAILY PO Last administered on 09/03/17at 09:04; Start 09/01/17 at 09:00 Patiromer (Veltassa) 8.4 gm STAT ONCE PO Last administered on 08/31/17at 20:25; Start 08/31/17 at 19:45; Stop 08/31/17 at 19:46; Status DC Ceftaroline Fosamil 300 mg/ Sodium Chloride 100 ml @ 100 mls/hr Q12H IV Last administered on 09/03/17at 02:27; Start 09/01/17 at 03:00 Sodium Chloride 250 ml @ 15 mls/hr ONCE ONCE IV ; Start 09/03/17 at 06:00; Stop 09/03/17 at 22:39 Sodium Chloride 250 ml @ 15 mls/hr ONCE ONCE IV ; Start 09/03/17 at 08:15; Stop 09/04/17 at 00:54 Acetaminophen (Tylenol) 650 mg Q4H PRN PO SEE LABEL COMMENTS; Start 09/03/17 at 08:15 Diphenhydramine HCl (Benadryl) 25 mg Q4H PRN PO SEE LABEL COMMENTS; Start at 08:15 Furosemide (Lasix Inj) 20 mg ONCE ONCE IV PUSH Last administered on 09/03/17at 09:04; Start 09/03/17 at 08:15; Stop 09/03/17 at 08:16; Status DC A/P Problem List: (1) Lumbar post-laminectomy syndrome ICD Code: M96.1 - Postlaminectomy syndrome, not elsewhere classified (2) Lumbar spinal stenosis ICD Code: M48.061 - Spinal stenosis, lumbar region without neurogenic claudication Status: Chronic (3) HTN (hypertension) ICD Code: I10 - Essential (primary) hypertension Status: Chronic (4) History of gout ICD Code: Z87.39 - Personal history of other diseases of the musculoskeletal system and connective tissue Status: Chronic (5) S/P lumbar laminectomy ICD Code: Z98.890 - Other specified postprocedural states Assessment and Plan Assessment and Plan Acute Renal failure Etiology is unclear, most likely due to previous IV vancomycin administration. Following Creatinine trend, mild increase over 3.0 and this may have been exacerbated by recent urinary retention from trial of voiding for Martin removal yesterday. Nephrology Dr. Oh currently following; Martin catheter reinserted yesterday due to urinary retention Left renal complex mass- Patient has been counseled by nephrology to follow up with his urologist Dr. Pettit for further outpatient workup Revision bilateral L3,4,5,S1 laminectomies Surgery performed 08/22/17 - continue post operative care per orthopedic surgery ; Continue physical therapy. 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 labs Discharge Planning PENDING IMPROVEMENT Problem Qualifiers (1) HTN (hypertension): Qualified Codes: I10 - Essential (primary) hypertension Derrick Neal DO Sep 03, 2017 14:04
[2017-09-04] VITALS (8 sets, daily range): BP systolic 110–142; BP diastolic 66–87; PULSE 61–94; RESP 17–19; TEMP 95.5–97.7; O2SAT 92–95
[2017-09-04] MEDS: ACETAMINOPHEN/HYDROcodone 325 MG/10 MG TAB PO PRN ×4 (01:10→20:03)
[2017-09-04] MEDS: SODIUM CHLOR 0.9% 1000 ML INJ 1,000 ML IV SCH ×3 (01:30→17:30)
[2017-09-04] MEDS: CEFTAROLINE INJ 300 MG in SODIUM CHLORIDE 0.9% INJ 100 ML IV SCH ×2 (05:52→18:23)
[2017-09-04] MEDS: CIPROFLOXACIN 0.3% OPTH OINT 3.5 GM TUBO EACH EYE SCH ×3 (06:00→20:03)
[2017-09-04 06:19] LABS: AUTOMATED NEUTROPHIL # 4.1 TH/MM3 (1.8-7.7); BASOPHIL # 0.1 TH/MM3 (0-0.2); EOSINOPHIL # 0.3 TH/MM3 (0-0.4); HEMATOCRIT 26.5 % (39.0-51.0); HEMOGLOBIN 9.1 GM/DL (13.0-17.0); LYMPH % 21.6 % (9.0-44.0); LYMPHOCYTE # 1.4 TH/MM3 (1.0-4.8); MEAN CELL VOLUME 88.6 FL (80.0-100.0); MEAN CORPUSCULAR HEMOGLOBIN 30.4 PG (27.0-34.0); MEAN CORPUSCULAR HGB CONC 34.3 % (32.0-36.0); MEAN PLATELET VOLUME 8.5 FL (7.0-11.0); MONO % 8.8 % (0.0-8.0); MONOCYTE # 0.6 TH/MM3 (0-0.9); NEUT % 63.6 % (16.0-70.0); PLATELET COUNT 299 TH/MM3 (150-450); RED BLOOD COUNT 2.99 MIL/MM3 (4.50-5.90); RED CELL DISTRIBUTION WIDTH 16.6 % (11.6-17.2); WHITE BLOOD COUNT 6.5 TH/MM3 (4.0-11.0)
[2017-09-04 06:40] LABS: ALBUMIN 2.1 GM/DL (3.4-5.0); AST (GOT) 17 U/L (15-37); BICARBONATE 24.6 MEQ/L (21.0-32.0); BLOOD UREA NITROGEN 44 MG/DL (7-18); CHLORIDE 108 MEQ/L (98-107); GLOMERULAR FILTRATION RATE 19 ML/MIN (>89); GLUCOSE,RANDOM 97 MG/DL (74-106); MAGNESIUM 2.1 MG/DL (1.5-2.5); SODIUM (NA) 140 MEQ/L (136-145)
[2017-09-04 06:41] LABS: ALT (GPT) 8 U/L (12-78); PHOSPHORUS 4.7 MG/DL (2.5-4.9)
[2017-09-04 06:43] LABS: ALKALINE PHOSPHATASE 94 U/L (45-117); TOTAL PROTEIN 5.4 GM/DL (6.4-8.2)
[2017-09-04] MEDS: MAGNESIUM HYDROXIDE SUSP 30 ML CUP PO SCH ×2 (08:51→20:01)
[2017-09-04] MEDS: TAMSULOSIN HCL 0.4 MG CAP PO SCH (08:56)
[2017-09-04] MEDS: CYCLOBENZAPRINE HCL 10 MG TAB PO PRN (08:57)
[2017-09-04] MEDS: ALLOPURINOL 300 MG TAB PO SCH (08:57)
[2017-09-04] MEDS: PANTOPRAZOLE SOD 20 MG DELAYED RELEASE TAB PO SCH (08:57)
[2017-09-04] MEDS: GABAPENTIN 400 MG CAP PO SCH ×2 (08:57→20:01)
[2017-09-04] MEDS: DOCUSATE SODIUM 100 MG CAP PO SCH ×2 (08:57→20:01)
[2017-09-04] MEDS: SODIUM CHLORIDE 0.9% FLUSH 10 ML FLUSH IV FLUSH SCH ×2 (08:57→20:02)
[2017-09-04] MEDS: CARVEDILOL 6.25 MG TAB PO SCH ×2 (08:57→20:01)
[2017-09-04] MEDS: MULTIVITAMIN TAB PO SCH (08:57)
[2017-09-04] MEDS: SODIUM BICARBONATE 650 MG TAB PO SCH ×2 (08:57→20:01)
--- NOTE | 2017-09-04 11:28 | HHI.NPPN ---
Subjective History of Present Illness 72-year-old male with a history of severe degenerative disease of the spine with a history of multiple back surgeries and lumbar stenosis. 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 Apparently the patient was receiving vancomycin from August 22 subsequently discontinued secondary to worsening renal function. He is currently on Cipro and daptomycin which was started on 27 August 2017. Patient's creatinine level was noted to have been 0.6 to August 23, 2017 subsequently rising to a level of 2.39 date of consultation. Of interest patient also was experiencing hypotension from August 24 until August 26, 2017. His furosemide was discontinued today. At time of consultation he was on lisinopril as well as Dyazide. Also on Protonix. Patient indicated early in the admission he did have a poor appetite. No previous history of CKD. Interval History Patient had no verbal complaints today. Review of Systems General General Remarks Negative complaints besides back pain Musculoskeletal MS: Pain/Stiffness Objective Data Data Vital Signs Date Time Temp Pulse Resp B/P (MAP) Pulse Ox O2 Delivery O2 Flow Rate FiO2 09/04/17 11:22 95.6 73 19 142/87 (105) 95 09/04/17 09:02 Room Air 09/04/17 07:38 95.5 76 19 142/79 (100) 92 09/04/17 05:02 97.7 74 18 134/80 93 09/04/17 01:56 96.1 69 17 117/74 94 09/04/17 01:34 69 17 125/76 94 09/04/17 01:12 96.8 94 18 120/74 94 09/03/17 23:42 Room Air 09/03/17 22:14 97.1 80 18 127/81 94 09/03/17 21:53 97.4 81 17 131/81 93 09/03/17 20:15 97.6 80 18 107/69 (82) 95 09/03/17 15:16 96.6 87 17 107/67 09/03/17 15:06 96.6 87 16 105/61 09/03/17 14:57 Room Air 09/03/17 14:38 96.6 85 111/67 09/03/17 12:00 97.7 88 18 104/62 (76) 93 -: 09/04/17 0550 09/04/17 0550 Physical Exam General Appearance: No Acute Distress, Comfortable Eyes Eye Exam: Pupils Equal Throat Throat Exam: Oral Mucosa [place] & Moist Pulmonary Resp Exam: Clear Bilaterally, Breath Sounds Equal Cardiology CV Exam: Regular, Normal Sinus Rhythm Gastrointestinal/Abdomen GI Exam: Soft, Non-Tender Genitourinary Exam: Clear Urine Integumentary Skin Exam: Clear, Warm Extremeties Extremities Exam: No Edema Neurologic Neuro Exam: Alert, Awake, Oriented Psychiatric Psych Exam: Appropriate Responses Assessment/Plan Problem List: (1) Acute kidney insufficiency ICD Codes: N28.9 - Disorder of kidney and ureter, unspecified Status: Acute Plan: Creatinine level improved as compared to yesterday and urine output is likely quite good. Continue to monitor and hopefully yesterday was the peak of the creatinine level. Vancomycin was discontinued on 08/27. Recommend avoidance in the future. Defer a kidney biopsy if renal recovery continues. Renal biopsy for definitive diagnosis, but given his infection status we would like to hold off on this if possible. Renal US discussed with the patient. Has 2 complex lesions on right kidney. States he is well aware of these and is under the care of Dr. Gerald Pettit. 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 Advised importance of f/u with urology as outpatient. Medications should be adjusted for the patient's estimated GFR if clinically indicated. Avoid agents with significant potential for nephrotoxicity possible including NSAIDs for analgesia, iodine contrast agents. Gadolinium is contraindicated if the GFR is below 30. (2) Hypotension ICD Codes: I95.9 - Hypotension, unspecified Status: Acute Plan: Improved (3) Lumbar spinal stenosis ICD Codes: M48.061 - Spinal stenosis, lumbar region without neurogenic claudication Status: Chronic (4) HTN (hypertension) ICD Codes: I10 - Essential (primary) hypertension Status: Chronic (5) Anemia ICD Codes: D64.9 - Anemia, unspecified Plan: Hgb trending downwards and Fe stores low. Pending FOBT (6) Hyperkalemia ICD Codes: E87.5 - Hyperkalemia Plan: Placed on 40mEq restriction. Improved Problem Qualifiers (1) HTN (hypertension): Qualified Codes: I10 - Essential (primary) hypertension Benjy Oh MD Sep 04, 2017 11:28
--- NOTE | 2017-09-04 12:29 | HHI.PR ---
Subjective Remarks in no acute distress. back pain is fairly controlled. no fever. Objective Vitals Vital Signs Date Time Temp Pulse Resp B/P (MAP) Pulse Ox O2 Delivery O2 Flow Rate FiO2 09/04/17 11:22 95.6 73 19 142/87 (105) 95 09/04/17 09:02 Room Air 09/04/17 07:38 95.5 76 19 142/79 (100) 92 09/04/17 05:02 97.7 74 18 134/80 93 09/04/17 01:56 96.1 69 17 117/74 94 09/04/17 01:34 69 17 125/76 94 09/04/17 01:12 96.8 94 18 120/74 94 09/03/17 23:42 Room Air 09/03/17 22:14 97.1 80 18 127/81 94 09/03/17 21:53 97.4 81 17 131/81 93 09/03/17 20:15 97.6 80 18 107/69 (82) 95 09/03/17 15:16 96.6 87 17 107/67 09/03/17 15:06 96.6 87 16 105/61 09/03/17 14:57 Room Air 09/03/17 14:38 96.6 85 111/67 I/O 09/03/17 09/03/17 09/03/17 09/04/17 09/04/17 09/04/17 07:00 15:00 23:00 07:00 15:00 23:00 Intake Total 480 ml 10 ml 1580 ml 1160 ml Output Total 900 ml 2800 ml 500 ml Balance -420 ml 10 ml -1220 ml 660 ml Intake Oral 480 ml 1080 ml 360 ml Packed Cells 400 ml 800 ml Blood Product IV Normal Saline Flush 10 ml 100 ml Output Urine Total 900 ml 2800 ml 500 ml # Voids 2 # Bowel Movements 0 0 2 Result Diagram: 09/04/17 0550 09/04/17 0550 Imaging Last Impressions Renal Ultrasound 08/27/17 0000 Signed Impressions: Service Date/Time: Sunday, August 27, 2017 17:45 - CONCLUSION: 1. No evidence hydronephrosis. 2. Complex cystic or solid mass in the lower pole the right kidney and complexes at mass in the midpole of the right kidney. 3. Possible punctate nonobstructing calculus in the left kidney. Maicol R Sandoval, MD Chest X-Ray 08/27/17 0000 Signed Impressions: Service Date/Time: Sunday, August 27, 2017 13:32 - CONCLUSION: Left-sided PICC line tip at the cavoatrial junction. Maicol Sandoval MD Objective Remarks GENERAL: This is a well-nourished, well-developed patient, in no apparent distress. CARDIOVASCULAR: Regular rate and regular rhythm without murmurs, gallops, or rubs. RESPIRATORY: Clear to auscultation. Breath sounds equal bilaterally. No wheezes , rales, or rhonchi. GASTROINTESTINAL: Abdomen soft, non-tender, nondistended. Normal, active bowel sounds MUSCULOSKELETAL: Extremities without clubbing, cyanosis, or edema. NEURO: Alert & Oriented x4 to person, place, time, situation. Moves all ext x4 Procedures cc: Jessica Stubbs MD Operative Report Date of Surgery: Aug 22, 2017 Preoperative Diagnosis: 1. L3-4, L4-5 lumbar stenosis with neurogenic claudication 2. L3-4, L4-5 and L5-S1 foraminal stenosis with bilateral lower extremity radiculopathy 3. 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 L3-4, L4-5 lumbar stenosis with neurogenic claudication 2. L3-4, L4-5 and L5-S1 foraminal stenosis with bilateral lower extremity radiculopathy 3. 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 Possible deep lumbar abscess Procedure: 1. Right revision laminectomies with partial facetectomies L3-4, L4-5 and L5-S1 2. Left revision laminectomies with partial facetectomies L3-4, L4-5 and L5-S1 3. Incision and drainage lumbar abscess Anesthesia: General Surgeon: Jessica Stubbs Weigh Boss(s): Dr. Rafael Beaulieu Operation and Findings: EBL: 600 cc Complications: Small CSF leak, self-contained Specimens: Multiple cultures and gross pathology sent to lab for evaluation Indications for procedure: Patient is a 72-year-old gentleman who underwent bilateral hemilaminectomies at L3-S1 in February of last year by my partner Dr. Janak Beaulieu. Initially, he had significant improvement in his radicular symptoms, however, he developed a large fluid collection requiring drainage in March. Subsequently, he developed recurrent symptoms and early May with imaging demonstrating a recurrent disc herniation requiring revision bilateral hemilaminectomies at L3-L5 by Dr. Beaulieu. Postoperatively, he had significant improvement in his symptoms for only 2 weeks with recurrent radiculopathy and neurogenic medications symptoms. Repeat imaging at the beginning of July demonstrated a recurrent disc herniation at L4-5 along with significant central and foraminal stenosis at L3-4 and foraminal stenosis at L5-S1. Options of management were discussed with the patient. Surgical intervention in the form of revision decompression with posterior instrumentation and fusion from L3-S1 with transforaminal interbody devices was discussed with the patient. Risks including but not limited to: Infection, hardware malposition or failure, CSF leak which could be persistent, neurologic injury leading to possible weakness or paralysis, pseudoarthrosis, adjacent segment disease requiring revision surgery, possible need for further surgery, worsening or no improvement in symptoms, and other unforeseen complications were all discussed with the patient. At this time he did consent to the above- mentioned procedure. Description of procedure: Patient was brought back to the operating room and general anesthesia then ensued. A Martin catheter was placed. Neuromonitoring leads were placed. An arterial line was started by anesthesia. Patient was then flipped prone onto the operating room table with all bony prominences well padded. Patient was prepped and draped in standard sterile fashion. A timeout was performed to identify the correct patient, side, site and procedures to be performed. Patient received preoperative antibiotics in the form of Ancef and vancomycin. An incision was made through the prior midline incision and extended distally approximately 2 cm. Sharp and electrocautery dissection was carried through the subcutaneous tissue and through the fascia. The remaining spinous process of L3 and S1 were utilized as midline guidelines to allow elevation of the paraspinals and scar tissue from the midline. There is a significant amount of scar tissue between the caudal edge of L3 and the superior edge of S1. This was initially left in place as dissection over the more cranial aspect of L3 and the caudal aspect of S1 was performed. Deep retractors were placed. At this time the facets and transverse processes were identified to allow for pedicle screws to be placed. However, as the right L4- 5 facet was identified and exposed there appeared to be purulent material coming from the facet. This was cultured and sent to the lab for stat interpretation. While awaiting the results, I turned my attention to the scar tissue between the caudal aspect of L3 and the cranial aspect of S1. As I started to remove this tissue, I encountered a large pocket of purulent appearing material just dorsal to the dura. This was also cultured and gross pathology sent to the lab. At this point, the initial cultures came back with moderate white blood cells with significant inflammatory tissue. My partner, Dr. Rafael Beaulieu, was available at this time to assist. As this purulence and inflamed tissue was removed, it was decided to abort the hardware insertion portion of the case given the significant concern for infection. At this time, I turned my attention to the revision decompression portion of the case. There was extensive scar tissue from the caudal aspect of L3 to the cranial aspect of S1. The edges of the remaining lamina, pars and spinous processes were freed of scar tissue and the scar tissue mobilized. The central decompression was revised at L3-4 with removal of the remaining lamina on both the right and left and extended to the lateral recesses. As the lateral recess on the right L3-4 level was removed, there appeared to be a small dural leak which sealed on its own and was self-contained. The central decompression was then revised at L5-S1 with removal of the remaining lamina on both the right and left and extended to the lateral recesses bilaterally with partial facetectomies. The remaining lamina of L4 was freed from scar tissue and then removed with the use of high-speed luisito and Kerrison rongeurs. There was noted to be significant stenosis at the level of the L4 lamina. The entirety of the L4 lamina on both the right and left was removed and the dural sac appeared to be free of significant compression at that point. The decompression was extended to the lateral recess with partial facetectomy, the right and left. The rest of the facets on both the right and left at L3-4, L4-L5 and L5-S1 were left in place as we were not planning to instrument at this time due to the concern for infection. In addition, it was elected to avoid a discectomy at this time as there was concern for infection dorsal to the dura sac and I would not want this tracked into the disc space should it be infection. The wound was thoroughly irrigated throughout the entire procedure but again with 1 L of normal saline laden with gentamicin at the end of the procedure. Hemostasis was achieved. A small piece of DuraGen was placed on the right side over the small dural leak. DuraSeal was then applied. A deep drain was placed below the fascia. The fascia was then closed with #1 PDS sutures. Subcutaneous tissue was then closed with 2-0 PDS sutures and skin closed with 2- 0 nylon sutures. Sterile dressings were applied. Patient was transferred from the operating room table onto a stretcher. Patient was then awoken from general anesthesia without complication. It should be noted the patient remained hemodynamically stable throughout the entire procedure. It should also be noted that there was difficulty obtaining baseline neuromonitoring, however, there were no appreciable adverse events throughout the procedure. Disposition: Patient will remain at bed rest with head of bed flat for at least 48 and possibly 72 hours for his small dural tear. Hemovac will be to gravity only, no suction. Will monitor intraoperative cultures and ask infectious disease to help with treatment. Jessica Stubbs MD Aug 23, 2017 07:47 <Electronically signed by Jessica Stubbs MD> 08/23/17 1311 Medications and IVs Inpatient Medications Acetaminophen (Tylenol) 650 mg Q4H PRN PO SEE LABEL COMMENTS; Start 09/03/17 at 08:15 Acetaminophen/ Hydrocodone Bitart (Rittman 10-325 Mg) 1 tab Q4H PRN PO PAIN SCALE 4 TO 7 Last administered on 09/04/17at 08:57; Start 08/24/17 at 08:00 Allopurinol (Zyloprim) 300 mg DAILY PO Last administered on 09/04/17at 08:57; Start 08/23/17 at 09:00 Alteplase, Recombinant (Cathflo Activase Inj) 2 mg ONCE ONCE INTRACATH Last administered on 08/29/17at 13:05; Start 08/29/17 at 12:45; Stop 08/29/17 at 12:52 ; Status DC Bisacodyl (Dulcolax Supp) 10 mg DAILY PRN RECTAL CONSTIPATION Last administered on 08/26/17at 08:56; Start 08/22/17 at 17:00 Carvedilol (Coreg) 6.25 mg BID PO Last administered on 09/04/17 08:57; Start at 09:00 Cefazolin Sodium/ Dextrose 50 ml @ 100 mls/hr WOLF HUNTER IV Last administered on 08/22/17at 12:15; Start 08/22/17 at 06:30; Stop 08/22/17 at 17:22; Status DC Ceftaroline Fosamil 300 mg/ Sodium Chloride 100 ml @ 100 mls/hr Q12H IV Last administered on 09/04/17at 05:52; Start 09/03/17 at 18:00 Chlorhexidine Gluconate (Chlorhexidine 2% Cloth) 3 pack WOLF HUNTER PRN TOPICAL SEE LABEL COMMENTS Last administered on 08/22/17 06:00; Start 08/22/17 at 06:30 ; Stop 08/22/17 at 17:21; Status DC Chlorhexidine Gluconate (Hibiclens 4% Top Soln) 1 applic ONCE TOPICAL ; Start at 06:30; Stop 08/22/17 at 17:22; Status DC Ciprofloxacin (Ciloxan 0.3% Opth Oint) 1 applic Q8HR EACH EYE Last administered on 08/30/17at 19:46; Start 08/25/17 at 16:00 Cyclobenzaprine HCl (Flexeril) 10 mg Q8H PRN PO MUSCLE SPASM Last administered on 09/04/17 08:57; Start 08/23/17 at 07:45 Daptomycin 1000 mg/Sodium Chloride 100 ml @ 200 mls/hr Q24H IV Last administered on 08/30/17at 13:00; Start 08/27/17 at 13:00; Stop 08/31/17 at 12:48 ; Status DC Diphenhydramine HCl (Benadryl) 25 mg Q4H PRN PO SEE LABEL COMMENTS; Start at 08:15 Docusate Sodium (Colace) 100 mg BID PO Last administered on 09/04/17 08:57; Start 08/23/17 at 21:00 Ergocalciferol (Drisdol) 50,000 units Q7D PO Last administered on 08/29/17at 20: 59; Start 08/29/17 at 18:00 Furosemide (Lasix Inj) 20 mg ONCE ONCE IV PUSH Last administered on 2/4/18at 09:04; Start 09/03/17 at 08:15; Stop 09/03/17 at 08:16; Status DC Furosemide (Lasix) 20 mg BID PO Last administered on 08/25/17at 08:45; Start at 09:00; Stop 08/27/17 at 11:49; Status DC Gabapentin (Neurontin) 400 mg BID PO Last administered on 09/04/17at 08:57; Start 08/28/17 at 09:00 Lactated Ringer's 1,000 ml @ 30 mls/hr Q24H PRN IV SEE LABEL COMMENTS Last administered on 08/22/17at 06:20; Start 08/22/17 at 06:30; Stop 08/22/17 at 17:21 ; Status DC Lisinopril (Prinivil) 10 mg DAILY PO Last administered on 08/25/17at 08:46; Start 08/23/17 at 09:00; Stop 08/27/17 at 16:31; Status DC Magnesium Hydroxide (Milk Of Inocencio Alejandre) 30 ml Q12HR PO Last administered on 09/03/17at 20:27; Start 08/25/17 at 21:00 Metoprolol Tartrate (Lopressor) 25 mg WOLF HUNTER PRN PO SEE LABEL COMMENTS; Start 08/22/17 at 06:30; Stop 08/22/17 at 17:21; Status DC Midodrine (Proamatine) 5 mg TID@07,12,17 PRN PO Systolic BP less than 90 mmHg; Start 08/26/17 at 09:00 Miscellaneous Information SPECIFIC LAB TO BE DRAWN:VANCOMYCIN TROUGH DATE TO... ONCE ONCE .XX Last administered on 08/27/17at 02:45; Start 08/27/17 at 02:45; Stop 08/27/17 at 02:46; Status DC Miscellaneous Information (Post-op Orders (for Pharmacy)) STAT ONCE XX ; Start 08/22/17 at 17:00; Stop 08/22/17 at 17:29; Status DC Morphine Sulfate (Morphine 1 Mg/ ml LABORATORY ANALYST) 30 mg UNSCH IV Last administered on at 05:54; Start 08/22/17 at 17:00; Stop 08/24/17 at 07:52; Status DC Morphine Sulfate (Morphine Inj) 2 mg Q4H PRN IV PUSH PAIN SCALE 8 TO 10; Start 08/24/17 at 08:00 Multivitamins (Theragran) 1 tab DAILY PO Last administered on 09/04/17at 08:57; Start 08/23/17 at 09:00 Naloxone HCl (Narcan Inj) 0.4 mg UNSCH PRN IV PUSH RESPIRATORY RATE LESS THAN 10; Start 08/22/17 at 17:00; Stop 08/24/17 at 07:52; Status DC Ondansetron HCl (Zofran Inj) 4 mg Q6H PRN IV PUSH NAUSEA OR VOMITING Last administered on 09/01/17at 13:29; Start 08/22/17 at 17:00 Pantoprazole Sodium (Protonix) 20 mg DAILY PO Last administered on 09/04/17at 08: 57; Start 08/23/17 at 09:00 Patiromer (Veltassa) 8.4 gm STAT ONCE PO Last administered on 08/31/17at 20:25; Start 08/31/17 at 19:45; Stop 08/31/17 at 19:46; Status DC LABORATORY ANALYST Dosage Infused (Pha) 1 Q8HR .XX Last administered on 08/24/17at 05:47; Start 08/22/17 at 22:00; Stop 08/24/17 at 07:52; Status DC Pharmacy Profile Note 0 ml @ 0 mls/hr UNSCH OTHER ; Start 08/22/17 at 17:00; Stop 08/27/17 at 10:42; Status DC Piperacillin Sod/ Tazobactam Sod 50 ml @ 100 mls/hr Q12H IV Last administered on 08/25/17at 05:24; Start 08/22/17 at 18:00; Stop 08/25/17 at 13:16; Status DC Povidone Iodine (Betadine 5% Antisepsis Kit) 1 applic WOLF HUNTER PRN EACH NARE SEE LABEL COMMENTS Last administered on 08/22/17at 06:36; Start 08/22/17 at 06:30 ; Stop 08/22/17 at 17:21; Status DC Sodium Biphosphate/ Sodium Phosphate (Fleets Enema (Adult)) 133 ml DAILY PRN DC CONSTIPATION; Start 08/22/17 at 17:00 Sodium Polystyrene Sulfonate (Kayexalate Liq) 15 gm ONCE ONCE PO Last administered on 08/31/17at 16:04; Start 08/31/17 at 14:15; Stop 08/31/17 at 14:34; Status DC Sodium Bicarbonate (Sodium Bicarbonate) 650 mg Q12HR PO Last administered on 09/04/17at 08:57; Start 08/29/17 at 09:45 Sodium Chloride 250 ml @ 15 mls/hr ONCE ONCE IV Last administered on at 14:53; Start 09/03/17 at 08:15; Stop 09/04/17 at 00:54; Status DC Sodium Chloride (NS Flush) 2 ml BID IV FLUSH Last administered on 09/04/17at 08: 57; Start 08/22/17 at 21:00 Tamsulosin HCl (Flomax) 0.4 mg DAILY PO Last administered on 09/04/17at 08:56; Start 09/01/17 at 09:00 Tobramycin Sulfate (Nebcin Inj) 1,200 mg ONCE ONCE OTHER ; Start 08/22/17 at 16 :01; Stop 08/22/17 at 17:28; Status DC Tranexamic Acid 2010 mg/Sodium Chloride 120.1 ml @ 200 mls/hr UNSCH IV Last administered on 08/22/17at 08:31; Start 08/22/17 at 08:00; Stop 08/22/17 at 14:00 ; Status DC Triamterene/HCTZ (Dyazide 37.5-25 Mg) 1 cap BID PO Last administered on at 21:36; Start 08/23/17 at 09:00; Stop 08/27/17 at 16:31; Status DC Vancomycin HCl (Vancomycin Inj) 2,000 mg ONCE ONCE OTHER Last administered on 08/22/17at 16:00; Start 08/22/17 at 16:00; Stop 08/22/17 at 17:28; Status DC Vancomycin HCl 1000 mg/Sodium Chloride 250 ml @ 250 mls/hr WOLF HUNTER IV Last administered on 08/22/17at 06:43; Start 08/22/17 at 06:30; Stop 08/22/17 at 17:22 ; Status DC Vancomycin HCl 1250 mg/Sodium Chloride 262.5 ml @ 250 mls/hr ONCE ONCE IV Last administered on 08/23/17at 02:33; Start 1/24/18 at 02:00; Stop 08/23/17 at 03:02; Status DC Vancomycin HCl 2000 mg/Sodium Chloride 520 ml @ 250 mls/hr Q18H IV Last administered on 08/26/17at 08:53; Start 08/25/17 at 15:00; Stop 08/27/17 at 10:42 ; Status DC A/P Problem List: (1) Lumbar post-laminectomy syndrome ICD Code: M96.1 - Postlaminectomy syndrome, not elsewhere classified (2) Lumbar spinal stenosis ICD Code: M48.061 - Spinal stenosis, lumbar region without neurogenic claudication Status: Chronic (3) HTN (hypertension) ICD Code: I10 - Essential (primary) hypertension Status: Chronic (4) History of gout ICD Code: Z87.39 - Personal history of other diseases of the musculoskeletal system and connective tissue Status: Chronic (5) S/P lumbar laminectomy ICD Code: Z98.890 - Other specified postprocedural states Assessment and Plan Acute Renal failure Etiology is unclear, most likely due to previous IV vancomycin administration. Following Creatinine trend. Nephrology Dr. Oh currently following; Martin catheter reinserted due to urinary retention Left renal complex mass- Patient has been counseled by nephrology to follow up with his urologist Dr. Pettit for further outpatient workup Revision bilateral L3,4,5,S1 laminectomies Surgery performed 08/22/17 - continue post operative care per orthopedic surgery ; Continue physical therapy. 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 H/H improved- will monitor. Gout Continue allopurinol DVT prophylaxis Bilateral SCDs, anticoagulation contraindicated secondary to spinal surgery continue PT/OT. Discharge Planning when cleared by consultants. Problem Qualifiers (1) HTN (hypertension): Qualified Codes: I10 - Essential (primary) hypertension Jayesh Hsu MD Sep 04, 2017 12:29
--- NOTE | 2017-09-04 14:11 | HHI.IDPN ---
Subjective Subjective Remarks is a 72 y/o CM who underwent bilateral hemilaminectomies at L3-S1 in February of 2017. Patient reports this is his 4th surgery but he has had no hardware to date. He reports he initially had significant improvement in his radicular symptoms, however, he developed a large fluid collection requiring drainage in March. Subsequently, he developed recurrent symptoms and early May with imaging demonstrating a recurrent disc herniation requiring revision bilateral hemilaminectomies at L3-L5 by Dr. Beauleiu. Postoperatively , he had significant improvement in his symptoms for only 2 weeks with recurrent radiculopathy and neurogenic medications symptoms. Repeat imaging at the beginning of July demonstrated a recurrent disc herniation at L4-5 along with significant central and foraminal stenosis at L3-4 and foraminal stenosis at L5-S1. Options of management were discussed with the patient. Summary of his surgeries in 2017 to date: 03/06/2017: L3-S1 bilateral hemilaminectomy, foraminotomy, partial facetectomy, decompression of nerve roots 04/17/2017: L-spine incision and drainage, drainage of seroma. Cultures intraoperatively with no growth. No antibiotics appear to be have prescribed on discharge. 06/21/2017: L3-L5 bilateral decompression, hemilaminectomy, foraminotomy, partial facetectomy, decompression with reexploration 08/23/2017: Right revision laminectomies with partial facetectomies L3-4, L4-5 and L5-S1, Left revision laminectomies with partial facetectomies L3-4, L4-5 and L5-S1, Incision and drainage lumbar abscess. Intraop cultures positive for Coag neg staph. Pertinent positives and negatives: denies B/B incontinence denies fever, chills or night sweats Reports anorexia and weight loss. Has perineal sensation. Defers rectal exam due to significant pain. No paresthesias or focal neuro deficit in LEs. Infectious disease is consulted for evaluation and management of coag-negative staphylococcus lumbar abscess possible osteomyelitis. Past Medical History Gastric ulcers Right renal mass Hyperglycemia Gout Osteoarthritis of the hip Hypertension Spinal stenosis since 2015 status post multiple surgeries Impotence Idiopathic peripheral neuropathy Obesity Past Surgical History 03/06/2017: L3-S1 bilateral hemilaminectomy, foraminotomy, partial facetectomy, decompression of nerve roots 04/17/2017: L-spine incision and drainage, drainage of seroma. Cultures intraoperatively with no growth. No antibiotics appear to be have prescribed on discharge. 06/21/2017: L3-L5 bilateral decompression, hemilaminectomy, foraminotomy, partial facetectomy, decompression with reexploration 08/23/2017: Right revision laminectomies with partial facetectomies L3-4, L4-5 and L5-S1, Left revision laminectomies with partial facetectomies L3-4, L4-5 and L5-S1, Incision and drainage lumbar abscess. Intraop cultures positive for Coag neg staph. Bilateral hernia repair EGD Colonoscopy Overnight events reviewed Left Eye much improved. No fever No rash No diarrhea Had issues with retention of urine overnight had to be catheterized again. Vanco level decreased to 12.4 still not eliminated completely. Cr improved some. Appears to due to accumulation vanco continued to be affecting the kidneys. Martin in place good UO. Antibiotics Teflaro IV Lines Line sites with no e.o infection Past Medical History Gastric ulcers Right renal mass Hyperglycemia Gout Osteoarthritis of the hip Hypertension Spinal stenosis since 2014 status post multiple surgeries Impotence Idiopathic peripheral neuropathy Obesity Past Surgical History 03/06/2017: L3-S1 bilateral hemilaminectomy, foraminotomy, partial facetectomy, decompression of nerve roots 04/17/2017: L-spine incision and drainage, drainage of seroma. Cultures intraoperatively with no growth. No antibiotics appear to be have prescribed on discharge. 06/21/2017: L3-L5 bilateral decompression, hemilaminectomy, foraminotomy, partial facetectomy, decompression with reexploration 08/23/2017: Right revision laminectomies with partial facetectomies L3-4, L4-5 and L5-S1, Left revision laminectomies with partial facetectomies L3-4, L4-5 and L5-S1, Incision and drainage lumbar abscess. Intraop cultures positive for Coag neg staph. Bilateral hernia repair EGD Colonoscopy Allergies: Coded Allergies: No Known Allergies (Verified Allergy, Unknown, 08/22/17) Objective . Vital Signs Date Time Temp Pulse Resp B/P (MAP) Pulse Ox O2 Delivery O2 Flow Rate FiO2 09/04/17 11:22 95.6 73 19 142/87 (105) 95 09/04/17 09:02 Room Air 09/04/17 07:38 95.5 76 19 142/79 (100) 92 09/04/17 05:02 97.7 74 18 134/80 93 09/04/17 01:56 96.1 69 17 117/74 94 09/04/17 01:34 69 17 125/76 94 09/04/17 01:12 96.8 94 18 120/74 94 09/03/17 23:42 Room Air 09/03/17 22:14 97.1 80 18 127/81 94 09/03/17 21:53 97.4 81 17 131/81 93 09/03/17 20:15 97.6 80 18 107/69 (82) 95 09/03/17 15:16 96.6 87 17 107/67 09/03/17 15:06 96.6 87 16 105/61 09/03/17 14:57 Room Air 09/03/17 14:38 96.6 85 111/67 . Laboratory Tests Test 09/03/17 05:00 09/04/17 05:50 White Blood Count 5.2 TH/MM3 6.5 TH/MM3 Red Blood Count 2.20 MIL/MM3 2.99 MIL/MM3 Hemoglobin 6.4 GM/DL 9.1 GM/DL Hematocrit 20.0 % 26.5 % Mean Corpuscular Volume 90.5 FL 88.6 FL Mean Corpuscular Hemoglobin 29.2 PG 30.4 PG Mean Corpuscular Hemoglobin Concent 32.3 % 34.3 % Red Cell Distribution Width 18.2 % 16.6 % Platelet Count 287 TH/MM3 299 TH/MM3 Mean Platelet Volume 8.6 FL 8.5 FL Neutrophils (%) (Auto) 59.6 % 63.6 % Lymphocytes (%) (Auto) 25.1 % 21.6 % Monocytes (%) (Auto) 8.4 % 8.8 % Eosinophils (%) (Auto) 5.7 % 5.0 % Basophils (%) (Auto) 1.2 % 1.0 % Neutrophils # (Auto) 3.1 TH/MM3 4.1 TH/MM3 Lymphocytes # (Auto) 1.3 TH/MM3 1.4 TH/MM3 Monocytes # (Auto) 0.4 TH/MM3 0.6 TH/MM3 Eosinophils # (Auto) 0.3 TH/MM3 0.3 TH/MM3 Basophils # (Auto) 0.1 TH/MM3 0.1 TH/MM3 CBC Comment DIFF FINAL DIFF FINAL Differential Comment Laboratory Tests Test 09/03/17 05:00 2/5/18 05:50 Blood Urea Nitrogen 39 MG/DL 44 MG/DL Creatinine 3.66 MG/DL 3.20 MG/DL Random Glucose 101 MG/DL 97 MG/DL Albumin 2.0 GM/DL 2.1 GM/DL Calcium Level 8.8 MG/DL 9.0 MG/DL Phosphorus Level 4.5 MG/DL 4.7 MG/DL Magnesium Level 2.1 MG/DL 2.1 MG/DL Sodium Level 139 MEQ/L 140 MEQ/L Potassium Level 4.7 MEQ/L 4.8 MEQ/L Chloride Level 108 MEQ/L 108 MEQ/L Carbon Dioxide Level 23.0 MEQ/L 24.6 MEQ/L Anion Gap 8 MEQ/L 7 MEQ/L Estimat Glomerular Filtration Rate 17 ML/MIN 19 ML/MIN Total Protein 5.4 GM/DL Alkaline Phosphatase 94 U/L Aspartate Amino Transf (AST/SGOT) 17 U/L Alanine Aminotransferase (ALT/SGPT) 8 U/L Total Bilirubin 1.0 MG/DL Imaging Last Impressions Renal Ultrasound 08/27/17 0000 Signed Impressions: Service Date/Time: Sunday, August 27, 2017 17:45 - CONCLUSION: 1. No evidence hydronephrosis. 2. Complex cystic or solid mass in the lower pole the right kidney and complexes at mass in the midpole of the right kidney. 3. Possible punctate nonobstructing calculus in the left kidney. Maicol Sandoval MD Chest X-Ray 08/27/17 0000 Signed Impressions: Service Date/Time: Sunday, August 27, 2017 13:32 - CONCLUSION: Left-sided PICC line tip at the cavoatrial junction. Maicol Sandoval MD Physical Exam GENERAL: This is a well-nourished, well-developed patient, in no apparent distress. SKIN: No rashes, ecchymoses or lesions. Cool and dry. HEAD: Atraumatic. Normocephalic. No temporal or scalp tenderness. EYES: Pupils equal round and reactive. Extraocular motions intact. No scleral icterus. No injection or drainage. ENT: Nose without bleeding, purulent drainage or septal hematoma. Throat without erythema, tonsillar hypertrophy or exudate. Uvula midline. Airway patent. NECK: Trachea midline. Supple, nontender, no meningeal signs. CARDIOVASCULAR: Regular rate and rhythm without murmurs, gallops, or rubs. RESPIRATORY: Clear to auscultation. Breath sounds equal bilaterally. No wheezes , rales, or rhonchi. GASTROINTESTINAL: Abdomen soft, non-tender, nondistended. MUSCULOSKELETAL: Extremities without clubbing, cyanosis, or edema. No joint tenderness, effusion, or edema noted. No calf tenderness. Negative Homans sign bilaterally. Wiggles his toes. Surgical site ok. NEUROLOGICAL: Awake and alert. Non focal exam. Psych cooperative IV line sites with no e.o infection. 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 No hardware in place. Coag neg staph spinal abscess. Acute renal failure: meds related likely, prerenal Staph Lugdenensis spinal abscess Lumbar stenosis with radiculopathy with significant pain. Multiple spinal surgeries in 2017. Left eyebrow cellulitis/conjunctivitis Recs: Continue Teflaro IV Cr improved. Will wait another day and d.w if Dapto can be restarted as this was likely not cause of ARF but I was avoiding it due to increase Cr. Appreciate nephrology input. Follow Cr trends. Follow clinically. d/w pt. Need Creatinine to stabilize for me to decide on Daptomycin discharge dose for DC planning. Cannot put in infusion orders till last day of Discharge. Marla Culp MD Sep 04, 2017 14:11
[2017-09-04 21:53] LABS: ALB/GLOB RATIO (SPE) 0.89 (1.39-2.23)
[2017-09-05 00:05] VITALS: BP 137/80; PULSE 64; RESP 18; TEMP 96.6; O2SAT 92
[2017-09-05] MEDS: CYCLOBENZAPRINE HCL 10 MG TAB PO PRN ×3 (00:33→17:38)
[2017-09-05] MEDS: ACETAMINOPHEN/HYDROcodone 325 MG/10 MG TAB PO PRN ×6 (00:33→22:42)
[2017-09-05] MEDS: SODIUM CHLOR 0.9% 1000 ML INJ 1,000 ML IV SCH ×2 (00:34→07:58)
[2017-09-05] MEDS: CIPROFLOXACIN 0.3% OPTH OINT 3.5 GM TUBO EACH EYE SCH ×3 (05:49→22:43)
[2017-09-05] MEDS: CEFTAROLINE INJ 300 MG in SODIUM CHLORIDE 0.9% INJ 100 ML IV SCH (05:49)
[2017-09-05] MEDS: GABAPENTIN 400 MG CAP PO SCH ×2 (07:57→22:42)
[2017-09-05] MEDS: SODIUM BICARBONATE 650 MG TAB PO SCH ×2 (07:57→22:42)
[2017-09-05] MEDS: TAMSULOSIN HCL 0.4 MG CAP PO SCH (07:57)
[2017-09-05] MEDS: MULTIVITAMIN TAB PO SCH (07:57)
[2017-09-05] MEDS: PANTOPRAZOLE SOD 20 MG DELAYED RELEASE TAB PO SCH (07:57)
[2017-09-05] MEDS: MAGNESIUM HYDROXIDE SUSP 30 ML CUP PO SCH ×2 (07:58→21:00)
[2017-09-05] MEDS: ALLOPURINOL 300 MG TAB PO SCH (07:58)
[2017-09-05] MEDS: SODIUM CHLORIDE 0.9% FLUSH 10 ML FLUSH IV FLUSH SCH ×2 (07:58→22:42)
[2017-09-05] MEDS: CARVEDILOL 6.25 MG TAB PO SCH ×2 (07:58→22:42)
[2017-09-05] MEDS: DOCUSATE SODIUM 100 MG CAP PO SCH ×2 (07:58→21:00)
[2017-09-05 08:00] VITALS: BP 120/70; PULSE 72; RESP 18; TEMP 96.8; O2SAT 92
[2017-09-05 08:16] LABS: BICARBONATE 22.6 MEQ/L (21.0-32.0); CALCIUM 9.1 MG/DL (8.5-10.1); CREATININE 2.81 MG/DL (0.60-1.30)
--- NOTE | 2017-09-05 11:05 | HHI.NPPN ---
Subjective History of Present Illness 72-year-old male with a history of severe degenerative disease of the spine with a history of multiple back surgeries and lumbar stenosis. 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 Apparently the patient was receiving vancomycin from August 22 subsequently discontinued secondary to worsening renal function. He is currently on Cipro and daptomycin which was started on 27 August 2017. Patient's creatinine level was noted to have been 0.6 to August 23, 2017 subsequently rising to a level of 2.39 date of consultation. Of interest patient also was experiencing hypotension from August 24 until August 26, 2017. His furosemide was discontinued today. At time of consultation he was on lisinopril as well as Dyazide. Also on Protonix. Patient indicated early in the admission he did have a poor appetite. No previous history of CKD. Interval History Pt feeling OK today. Still complaining of significant pain. Received 5U of blood over weekend. Review of Systems General General Remarks Negative complaints besides back pain Musculoskeletal MS: Pain/Stiffness Objective Data Data Vital Signs Date Time Temp Pulse Resp B/P (MAP) Pulse Ox O2 Delivery O2 Flow Rate FiO2 09/05/17 08:00 96.8 72 18 120/70 (87) 92 09/05/17 07:37 Room Air 09/05/17 00:05 96.6 64 18 137/80 (99) 92 09/04/17 20:55 96.8 61 18 110/66 (81) 92 09/04/17 15:24 97.0 72 19 126/80 (95) 93 09/04/17 11:22 95.6 73 19 142/87 (105) 95 -: 09/04/17 0550 09/05/17 0550 Imaging Last Impressions Renal Ultrasound 08/27/17 0000 Signed Impressions: Service Date/Time: Sunday, August 27, 2017 17:45 - CONCLUSION: 1. No evidence hydronephrosis. 2. Complex cystic or solid mass in the lower pole the right kidney and complexes at mass in the midpole of the right kidney. 3. Possible punctate nonobstructing calculus in the left kidney. Maicol Sandoval MD Chest X-Ray 08/27/17 0000 Signed Impressions: Service Date/Time: Sunday, August 27, 2017 13:32 - CONCLUSION: Left-sided PICC line tip at the cavoatrial junction. Maicol Sandoval MD Medication Review Current Medications Medications (Trade) Dose Ordered Sig/Samia Route Start Time Stop Time Status Last Admin (NS Flush) 2 ml UNSCH PRN IV FLUSH 08/22/17 17:00 (NS Flush) 2 ml BID IV FLUSH 08/22/17 21:00 09/05/17 07:58 (Zofran Inj) 4 mg Q6H PRN IV PUSH 08/22/17 17:00 09/01/17 13:29 (Colace) 100 mg BID PO 08/23/17 21:00 09/04/17 20:01 (Dulcolax Supp) 10 mg DAILY PRN RECTAL 08/22/17 17:00 08/26/17 08:56 (Fleets Enema (Adult)) 133 ml DAILY PRN VA 08/22/17 17:00 Sodium Chloride 1,000 ml @ 125 mls/hr Q8H IV 08/22/17 17:30 09/05/17 07:58 (Zyloprim) 300 mg DAILY PO 08/23/17 09:00 09/05/17 07:58 (Coreg) 6.25 mg BID PO 08/23/17 09:00 09/05/17 07:58 (Protonix) 20 mg DAILY PO 08/23/17 09:00 09/05/17 07:57 (Theragran) 1 tab DAILY PO 08/23/17 09:00 09/05/17 07:57 (Flexeril) 10 mg Q8H PRN PO 08/23/17 07:45 09/05/17 07:58 (Morphine Inj) 2 mg Q4H PRN IV PUSH 08/24/17 08:00 (Maramec 10-325 Mg) 1 tab Q4H PRN PO 08/24/17 08:00 09/05/17 09:58 (Ciloxan 0.3% Opth Oint) 1 applic Q8HR EACH EYE 08/25/17 16:00 08/30/17 19:46 (Milk Of Magnesia Liq) 30 ml Q12HR PO 08/25/17 21:00 09/03/17 20:27 (Proamatine) 5 mg TID@07,12,17 PRN PO 08/26/17 09:00 (Neurontin) 400 mg BID PO 08/28/17 09:00 09/05/17 07:57 (Sodium Bicarbonate) 650 mg Q12HR PO 08/29/17 09:45 09/05/17 07:57 (Drisdol) 50,000 units Q7D PO 08/29/17 18:00 08/29/17 20:59 (Flomax) 0.4 mg DAILY PO 09/01/17 09:00 09/05/17 07:57 (Tylenol) 650 mg Q4H PRN PO 09/03/17 08:15 (Benadryl) 25 mg Q4H PRN PO 09/03/17 08:15 Ceftaroline Fosamil 300 mg/ Sodium Chloride 100 ml @ 100 mls/hr Q12H IV 09/03/17 18:00 09/05/17 05:49 Physical Exam General Appearance: No Acute Distress, Comfortable Eyes Eye Exam: Pupils Equal Throat Throat Exam: Oral Mucosa [place] & Moist Pulmonary Resp Exam: Clear Bilaterally, Breath Sounds Equal Cardiology CV Exam: Regular, Normal Sinus Rhythm Gastrointestinal/Abdomen GI Exam: Soft, Non-Tender Genitourinary Exam: Clear Urine Integumentary Skin Exam: Clear, Warm Extremeties Extremities Exam: Moderate Edema Neurologic Neuro Exam: Alert, Awake, Oriented Psychiatric Psych Exam: Appropriate Responses Assessment/Plan Problem List: (1) Acute kidney insufficiency ICD Codes: N28.9 - Disorder of kidney and ureter, unspecified Status: Acute Plan: SCr continues to show improvement daily. At this point will D/C IVF as he has significant fluid retention. 1 dose IV lasix ordered Vanc still present in serum despite being discontinued on 08/27. Given improvement, will defer kidney biopsy. OK to be started on Daptomycin at this point. Will defer to ID. Recommend avoidance of Vancomycin in the future. Renal US discussed with the patient. Has 2 complex lesions on right kidney. States he is well aware of these and is under the care of Dr. Gerald Pettit. 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 He also has urinary retention and this will need to be re-evaluated. Advised importance of f/u with urology as outpatient. Medications should be adjusted for the patient's estimated GFR if clinically indicated. Avoid agents with significant potential for nephrotoxicity possible including NSAIDs for analgesia, iodine contrast agents. Gadolinium is contraindicated if the GFR is below 30. (2) Hypotension ICD Codes: I95.9 - Hypotension, unspecified Status: Acute Plan: Improved (3) Lumbar spinal stenosis ICD Codes: M48.061 - Spinal stenosis, lumbar region without neurogenic claudication Status: Chronic (4) HTN (hypertension) ICD Codes: I10 - Essential (primary) hypertension Status: Chronic (5) Anemia ICD Codes: D64.9 - Anemia, unspecified Plan: Received 5U of blood this weekend (6) Hyperkalemia ICD Codes: E87.5 - Hyperkalemia Plan: Resolved with dietary restrictions. Problem Qualifiers (1) HTN (hypertension): Qualified Codes: I10 - Essential (primary) hypertension Gina Jim Sep 05, 2017 11:05
[2017-09-05] MEDS ORDERED: FUROSEMIDE 40 MG/4 ML VIAL IV PUSH ONE (11:15)
--- NOTE | 2017-09-05 11:26 | HHI.PR ---
Subjective Remarks in no acute distress. complaining of some pain to the left hip. afebrile. Objective Vitals Vital Signs Date Time Temp Pulse Resp B/P (MAP) Pulse Ox O2 Delivery O2 Flow Rate FiO2 09/05/17 08:00 96.8 72 18 120/70 (87) 92 09/05/17 07:37 Room Air 09/05/17 00:05 96.6 64 18 137/80 (99) 92 09/04/17 20:55 96.8 61 18 110/66 (81) 92 09/04/17 15:24 97.0 72 19 126/80 (95) 93 I/O 09/04/17 09/04/17 09/04/17 09/05/17 09/05/17 09/05/17 07:00 15:00 23:00 07:00 15:00 23:00 Intake Total 1160 ml 750 ml 620 ml 1130 ml Output Total 500 ml 750 ml 650 ml 450 ml Balance 660 ml 0 ml -30 ml 680 ml Intake Oral 360 ml 750 ml 620 ml 480 ml IV Total 650 ml Packed Cells 800 ml Output Urine Total 500 ml 750 ml 650 ml 450 ml # Bowel Movements 2 0 0 Result Diagram: 09/04/17 0550 09/05/17 0550 Imaging Last Impressions Renal Ultrasound 08/27/17 0000 Signed Impressions: Service Date/Time: Sunday, August 27, 2017 17:45 - CONCLUSION: 1. No evidence hydronephrosis. 2. Complex cystic or solid mass in the lower pole the right kidney and complexes at mass in the midpole of the right kidney. 3. Possible punctate nonobstructing calculus in the left kidney. Maicol Sandoval MD Chest X-Ray 08/27/17 0000 Signed Impressions: Service Date/Time: Sunday, August 27, 2017 13:32 - CONCLUSION: Left-sided PICC line tip at the cavoatrial junction. Maicol Sandoval MD Objective Remarks GENERAL: This is a well-nourished, well-developed patient, in no apparent distress. CARDIOVASCULAR: Regular rate and regular rhythm without murmurs, gallops, or rubs. RESPIRATORY: Clear to auscultation. Breath sounds equal bilaterally. No wheezes , rales, or rhonchi. GASTROINTESTINAL: Abdomen soft, non-tender, nondistended. Normal, active bowel sounds MUSCULOSKELETAL: Extremities without clubbing, cyanosis, or edema. NEURO: Alert & Oriented x4 to person, place, time, situation. Moves all ext x4 Procedures cc: Jessica Stubbs MD Operative Report Date of Surgery: Aug 22, 2017 Preoperative Diagnosis: 1. L3-4, L4-5 lumbar stenosis with neurogenic claudication 2. L3-4, L4-5 and L5-S1 foraminal stenosis with bilateral lower extremity radiculopathy 3. 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 L3-4, L4-5 lumbar stenosis with neurogenic claudication 2. L3-4, L4-5 and L5-S1 foraminal stenosis with bilateral lower extremity radiculopathy 3. 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 Possible deep lumbar abscess Procedure: 1. Right revision laminectomies with partial facetectomies L3-4, L4-5 and L5-S1 2. Left revision laminectomies with partial facetectomies L3-4, L4-5 and L5-S1 3. Incision and drainage lumbar abscess Anesthesia: General Surgeon: Jessica Stubbs Java Development Manager(s): Dr. Rafael Beaulieu Operation and Findings: EBL: 600 cc Complications: Small CSF leak, self-contained Specimens: Multiple cultures and gross pathology sent to lab for evaluation Indications for procedure: Patient is a 72-year-old gentleman who underwent bilateral hemilaminectomies at L3-S1 in February of last year by my partner Dr. Janak Beaulieu. Initially, he had significant improvement in his radicular symptoms, however, he developed a large fluid collection requiring drainage in March. Subsequently, he developed recurrent symptoms and early May with imaging demonstrating a recurrent disc herniation requiring revision bilateral hemilaminectomies at L3-L5 by Dr. Beaulieu. Postoperatively, he had significant improvement in his symptoms for only 2 weeks with recurrent radiculopathy and neurogenic medications symptoms. Repeat imaging at the beginning of July demonstrated a recurrent disc herniation at L4-5 along with significant central and foraminal stenosis at L3-4 and foraminal stenosis at L5-S1. Options of management were discussed with the patient. Surgical intervention in the form of revision decompression with posterior instrumentation and fusion from L3-S1 with transforaminal interbody devices was discussed with the patient. Risks including but not limited to: Infection, hardware malposition or failure, CSF leak which could be persistent, neurologic injury leading to possible weakness or paralysis, pseudoarthrosis, adjacent segment disease requiring revision surgery, possible need for further surgery, worsening or no improvement in symptoms, and other unforeseen complications were all discussed with the patient. At this time he did consent to the above- mentioned procedure. Description of procedure: Patient was brought back to the operating room and general anesthesia then ensued. A Martin catheter was placed. Neuromonitoring leads were placed. An arterial line was started by anesthesia. Patient was then flipped prone onto the operating room table with all bony prominences well padded. Patient was prepped and draped in standard sterile fashion. A timeout was performed to identify the correct patient, side, site and procedures to be performed. Patient received preoperative antibiotics in the form of Ancef and vancomycin. An incision was made through the prior midline incision and extended distally approximately 2 cm. Sharp and electrocautery dissection was carried through the subcutaneous tissue and through the fascia. The remaining spinous process of L3 and S1 were utilized as midline guidelines to allow elevation of the paraspinals and scar tissue from the midline. There is a significant amount of scar tissue between the caudal edge of L3 and the superior edge of S1. This was initially left in place as dissection over the more cranial aspect of L3 and the caudal aspect of S1 was performed. Deep retractors were placed. At this time the facets and transverse processes were identified to allow for pedicle screws to be placed. However, as the right L4- 5 facet was identified and exposed there appeared to be purulent material coming from the facet. This was cultured and sent to the lab for stat interpretation. While awaiting the results, I turned my attention to the scar tissue between the caudal aspect of L3 and the cranial aspect of S1. As I started to remove this tissue, I encountered a large pocket of purulent appearing material just dorsal to the dura. This was also cultured and gross pathology sent to the lab. At this point, the initial cultures came back with moderate white blood cells with significant inflammatory tissue. My partner, Dr. Rafael Beaulieu, was available at this time to assist. As this purulence and inflamed tissue was removed, it was decided to abort the hardware insertion portion of the case given the significant concern for infection. At this time, I turned my attention to the revision decompression portion of the case. There was extensive scar tissue from the caudal aspect of L3 to the cranial aspect of S1. The edges of the remaining lamina, pars and spinous processes were freed of scar tissue and the scar tissue mobilized. The central decompression was revised at L3-4 with removal of the remaining lamina on both the right and left and extended to the lateral recesses. As the lateral recess on the right L3-4 level was removed, there appeared to be a small dural leak which sealed on its own and was self-contained. The central decompression was then revised at L5-S1 with removal of the remaining lamina on both the right and left and extended to the lateral recesses bilaterally with partial facetectomies. The remaining lamina of L4 was freed from scar tissue and then removed with the use of high-speed luisito and Kerrison rongeurs. There was noted to be significant stenosis at the level of the L4 lamina. The entirety of the L4 lamina on both the right and left was removed and the dural sac appeared to be free of significant compression at that point. The decompression was extended to the lateral recess with partial facetectomy, the right and left. The rest of the facets on both the right and left at L3-4, L4-L5 and L5-S1 were left in place as we were not planning to instrument at this time due to the concern for infection. In addition, it was elected to avoid a discectomy at this time as there was concern for infection dorsal to the dura sac and I would not want this tracked into the disc space should it be infection. The wound was thoroughly irrigated throughout the entire procedure but again with 1 L of normal saline laden with gentamicin at the end of the procedure. Hemostasis was achieved. A small piece of DuraGen was placed on the right side over the small dural leak. DuraSeal was then applied. A deep drain was placed below the fascia. The fascia was then closed with #1 PDS sutures. Subcutaneous tissue was then closed with 2-0 PDS sutures and skin closed with 2- 0 nylon sutures. Sterile dressings were applied. Patient was transferred from the operating room table onto a stretcher. Patient was then awoken from general anesthesia without complication. It should be noted the patient remained hemodynamically stable throughout the entire procedure. It should also be noted that there was difficulty obtaining baseline neuromonitoring, however, there were no appreciable adverse events throughout the procedure. Disposition: Patient will remain at bed rest with head of bed flat for at least 48 and possibly 72 hours for his small dural tear. Hemovac will be to gravity only, no suction. Will monitor intraoperative cultures and ask infectious disease to help with treatment. Jessica Stubbs MD Aug 23, 2017 07:47 <Electronically signed by Jessica Stubbs MD> 08/23/17 1311 Medications and IVs Inpatient Medications Acetaminophen (Tylenol) 650 mg Q4H PRN PO SEE LABEL COMMENTS; Start 09/03/17 at 08:15 Acetaminophen/ Hydrocodone Bitart ([place] 10-325 Mg) 1 tab Q4H PRN PO PAIN SCALE 4 TO 7 Last administered on 09/05/17 09:58; Start 08/24/17 at 08:00 Allopurinol (Zyloprim) 300 mg DAILY PO Last administered on 09/05/17at 07:58; Start 08/23/17 at 09:00 Alteplase, Recombinant (Cathflo Activase Inj) 2 mg ONCE ONCE INTRACATH Last administered on 08/29/17at 13:05; Start 08/29/17 at 12:45; Stop 08/29/17 at 12:52 ; Status DC Bisacodyl (Dulcolax Supp) 10 mg DAILY PRN RECTAL CONSTIPATION Last administered on 08/26/17at 08:56; Start 08/22/17 at 17:00 Carvedilol (Coreg) 6.25 mg BID PO Last administered on 09/05/17at 07:58; Start at 09:00 Cefazolin Sodium/ Dextrose 50 ml @ 100 mls/hr FASHION PHOTOGRAPHER IV Last administered on 08/22/17at 12:15; Start 08/22/17 at 06:30; Stop 08/22/17 at 17:22; Status DC Ceftaroline Fosamil 300 mg/ Sodium Chloride 100 ml @ 100 mls/hr Q12H IV Last administered on 09/05/17at 05:49; Start 09/03/17 at 18:00 Chlorhexidine Gluconate (Chlorhexidine 2% Cloth) 3 pack FASHION PHOTOGRAPHER PRN TOPICAL SEE LABEL COMMENTS Last administered on 08/22/17at 06:00; Start 08/22/17 at 06:30 ; Stop 08/22/17 at 17:21; Status DC Chlorhexidine Gluconate (Hibiclens 4% Top Soln) 1 applic ONCE TOPICAL ; Start at 06:30; Stop 08/22/17 at 17:22; Status DC Ciprofloxacin (Ciloxan 0.3% Opth Oint) 1 applic Q8HR EACH EYE Last administered on 08/30/17at 19:46; Start 08/25/17 at 16:00 Cyclobenzaprine HCl (Flexeril) 10 mg Q8H PRN PO MUSCLE SPASM Last administered on 09/05/17at 07:58; Start 08/23/17 at 07:45 Daptomycin 1000 mg/Sodium Chloride 100 ml @ 200 mls/hr Q24H IV Last administered on 08/30/17at 13:00; Start 08/27/17 at 13:00; Stop 08/31/17 at 12:48 ; Status DC Diphenhydramine HCl (Benadryl) 25 mg Q4H PRN PO SEE LABEL COMMENTS; Start at 08:15 Docusate Sodium (Colace) 100 mg BID PO Last administered on 09/04/17at 20:01; Start 08/23/17 at 21:00 Ergocalciferol (Drisdol) 50,000 units Q7D PO Last administered on 08/29/17at 20: 59; Start 08/29/17 at 18:00 Furosemide (Lasix Inj) 40 mg ONCE ONCE IV PUSH ; Start 09/05/17 at 11:15; Stop 09/05/17 at 11:16; Status UNV Furosemide (Lasix) 20 mg BID PO Last administered on 08/25/17at 08:45; Start at 09:00; Stop 08/27/17 at 11:49; Status DC Gabapentin (Neurontin) 400 mg BID PO Last administered on 09/05/17at 07:57; Start 08/28/17 at 09:00 Lactated Ringer's 1,000 ml @ 30 mls/hr Q24H PRN IV SEE LABEL COMMENTS Last administered on 08/22/17at 06:20; Start 08/22/17 at 06:30; Stop 08/22/17 at 17:21 ; Status DC Lisinopril (Prinivil) 10 mg DAILY PO Last administered on 08/25/17at 08:46; Start 08/23/17 at 09:00; Stop 08/27/17 at 16:31; Status DC Magnesium Hydroxide (Milk Of Inocencio Alejandre) 30 ml Q12HR PO Last administered on 09/03/17at 20:27; Start 08/25/17 at 21:00 Metoprolol Tartrate (Lopressor) 25 mg FASHION PHOTOGRAPHER PRN PO SEE LABEL COMMENTS; Start 08/22/17 at 06:30; Stop 08/22/17 at 17:21; Status DC Midodrine (Proamatine) 5 mg TID@07,12,17 PRN PO Systolic BP less than 90 mmHg; Start 08/26/17 at 09:00 Miscellaneous Information SPECIFIC LAB TO BE DRAWN:VANCOMYCIN TROUGH DATE TO... ONCE ONCE .XX Last administered on 08/27/17at 02:45; Start 08/27/17 at 02:45; Stop 08/27/17 at 02:46; Status DC Miscellaneous Information (Post-op Orders (for Pharmacy)) STAT ONCE XX ; Start 08/22/17 at 17:00; Stop 08/22/17 at 17:29; Status DC Morphine Sulfate (Morphine 1 Mg/ ml CONTACT CENTER ASSISTANT) 30 mg UNSCH IV Last administered on at 05:54; Start 08/22/17 at 17:00; Stop 08/24/17 at 07:52; Status DC Morphine Sulfate (Morphine Inj) 2 mg Q4H PRN IV PUSH PAIN SCALE 8 TO 10; Start 08/24/17 at 08:00 Multivitamins (Theragran) 1 tab DAILY PO Last administered on 09/05/17at 07:57; Start 08/23/17 at 09:00 Naloxone HCl (Narcan Inj) 0.4 mg UNSCH PRN IV PUSH RESPIRATORY RATE LESS THAN 10; Start 08/22/17 at 17:00; Stop 08/24/17 at 07:52; Status DC Ondansetron HCl (Zofran Inj) 4 mg Q6H PRN IV PUSH NAUSEA OR VOMITING Last administered on 09/01/17at 13:29; Start 08/22/17 at 17:00 Pantoprazole Sodium (Protonix) 20 mg DAILY PO Last administered on 09/05/17at 07: 57; Start 08/23/17 at 09:00 Patiromer (Veltassa) 8.4 gm STAT ONCE PO Last administered on 08/31/17at 20:25; Start 08/31/17 at 19:45; Stop 08/31/17 at 19:46; Status DC CONTACT CENTER ASSISTANT Dosage Infused (Pha) 1 Q8HR .XX Last administered on 08/24/17at 05:47; Start 08/22/17 at 22:00; Stop 08/24/17 at 07:52; Status DC Pharmacy Profile Note 0 ml @ 0 mls/hr UNSCH OTHER ; Start 08/22/17 at 17:00; Stop 08/27/17 at 10:42; Status DC Piperacillin Sod/ Tazobactam Sod 50 ml @ 100 mls/hr Q12H IV Last administered on 08/25/17at 05:24; Start 08/22/17 at 18:00; Stop 08/25/17 at 13:16; Status DC Povidone Iodine (Betadine 5% Antisepsis Kit) 1 applic FASHION PHOTOGRAPHER PRN EACH NARE SEE LABEL COMMENTS Last administered on 08/22/17at 06:36; Start 08/22/17 at 06:30 ; Stop 08/22/17 at 17:21; Status DC Sodium Biphosphate/ Sodium Phosphate (Fleets Enema (Adult)) 133 ml DAILY PRN HI CONSTIPATION; Start 08/22/17 at 17:00 Sodium Polystyrene Sulfonate (Kayexalate Liq) 15 gm ONCE ONCE PO Last administered on 08/31/17at 16:04; Start 08/31/17 at 14:15; Stop 08/31/17 at 14:34; Status DC Sodium Bicarbonate (Sodium Bicarbonate) 650 mg Q12HR PO Last administered on 09/05/17at 07:57; Start 08/29/17 at 09:45 Sodium Chloride 250 ml @ 15 mls/hr ONCE ONCE IV Last administered on at 14:53; Start 09/03/17 at 08:15; Stop 09/04/17 at 00:54; Status DC Sodium Chloride (NS Flush) 2 ml BID IV FLUSH Last administered on 09/05/17at 07: 58; Start 08/22/17 at 21:00 Tamsulosin HCl (Flomax) 0.4 mg DAILY PO Last administered on 09/05/17at 07:57; Start 09/01/17 at 09:00 Tobramycin Sulfate (Nebcin Inj) 1,200 mg ONCE ONCE OTHER ; Start 08/22/17 at 16 :01; Stop 08/22/17 at 17:28; Status DC Tranexamic Acid 2010 mg/Sodium Chloride 120.1 ml @ 200 mls/hr UNSCH IV Last administered on 08/22/17at 08:31; Start 08/22/17 at 08:00; Stop 08/22/17 at 14:00 ; Status DC Triamterene/HCTZ (Dyazide 37.5-25 Mg) 1 cap BID PO Last administered on at 21:36; Start 08/23/17 at 09:00; Stop 08/27/17 at 16:31; Status DC Vancomycin HCl (Vancomycin Inj) 2,000 mg ONCE ONCE OTHER Last administered on 08/22/17at 16:00; Start 08/22/17 at 16:00; Stop 08/22/17 at 17:28; Status DC Vancomycin HCl 1000 mg/Sodium Chloride 250 ml @ 250 mls/hr FASHION PHOTOGRAPHER IV Last administered on 08/22/17at 06:43; Start 08/22/17 at 06:30; Stop 08/22/17 at 17:22 ; Status DC Vancomycin HCl 1250 mg/Sodium Chloride 262.5 ml @ 250 mls/hr ONCE ONCE IV Last administered on 08/23/17at 02:33; Start 08/23/17 at 02:00; Stop 08/23/17 at 03:02; Status DC Vancomycin HCl 2000 mg/Sodium Chloride 520 ml @ 250 mls/hr Q18H IV Last administered on 08/26/17at 08:53; Start 08/25/17 at 15:00; Stop 08/27/17 at 10:42 ; Status DC A/P Problem List: (1) Lumbar post-laminectomy syndrome ICD Code: M96.1 - Postlaminectomy syndrome, not elsewhere classified (2) Lumbar spinal stenosis ICD Code: M48.061 - Spinal stenosis, lumbar region without neurogenic claudication Status: Chronic (3) HTN (hypertension) ICD Code: I10 - Essential (primary) hypertension Status: Chronic (4) History of gout ICD Code: Z87.39 - Personal history of other diseases of the musculoskeletal system and connective tissue Status: Chronic (5) S/P lumbar laminectomy ICD Code: Z98.890 - Other specified postprocedural states Assessment and Plan Acute Renal failure improving. Etiology is unclear, most likely due to previous IV vancomycin administration. Following Creatinine trend. Nephrology Dr. Oh currently following; Martin catheter reinserted due to urinary retention Left renal complex mass- Patient has been counseled by nephrology to follow up with his urologist Dr. Pettit for further outpatient workup Revision bilateral L3,4,5,S1 laminectomies Surgery performed 08/22/17 - continue post operative care per orthopedic surgery ; Continue physical therapy. 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 cleared by nephrology to start on Daptomycin- awaiting ID f/u. ANEMIA transfused with PRBC. H/H improved- will monitor. Gout Continue allopurinol DVT prophylaxis Bilateral SCDs, anticoagulation contraindicated secondary to spinal surgery continue PT/OT. Discharge Planning when cleared by consultants. Problem Qualifiers (1) HTN (hypertension): Qualified Codes: I10 - Essential (primary) hypertension Jayesh Hsu MD Sep 05, 2017 11:26
[2017-09-05 12:00] VITALS: BP 126/65; PULSE 76; RESP 18; TEMP 96.4; O2SAT 100
--- NOTE | 2017-09-05 12:26 | HHI.IDPN ---
Subjective Subjective Remarks is a 72 y/o CM who underwent bilateral hemilaminectomies at L3-S1 in February of 2017. Patient reports this is his 4th surgery but he has had no hardware to date. He reports he initially had significant improvement in his radicular symptoms, however, he developed a large fluid collection requiring drainage in March. Subsequently, he developed recurrent symptoms and early May with imaging demonstrating a recurrent disc herniation requiring revision bilateral hemilaminectomies at L3-L5 by Dr. Beaulieu. Postoperatively , he had significant improvement in his symptoms for only 2 weeks with recurrent radiculopathy and neurogenic medications symptoms. Repeat imaging at the beginning of July demonstrated a recurrent disc herniation at L4-5 along with significant central and foraminal stenosis at L3-4 and foraminal stenosis at L5-S1. Options of management were discussed with the patient. Summary of his surgeries in 2017 to date: 03/06/2017: L3-S1 bilateral hemilaminectomy, foraminotomy, partial facetectomy, decompression of nerve roots 04/17/2017: L-spine incision and drainage, drainage of seroma. Cultures intraoperatively with no growth. No antibiotics appear to be have prescribed on discharge. 06/21/2017: L3-L5 bilateral decompression, hemilaminectomy, foraminotomy, partial facetectomy, decompression with reexploration 08/23/2017: Right revision laminectomies with partial facetectomies L3-4, L4-5 and L5-S1, Left revision laminectomies with partial facetectomies L3-4, L4-5 and L5-S1, Incision and drainage lumbar abscess. Intraop cultures positive for Coag neg staph. Pertinent positives and negatives: denies B/B incontinence denies fever, chills or night sweats Reports anorexia and weight loss. Has perineal sensation. Defers rectal exam due to significant pain. No paresthesias or focal neuro deficit in LEs. Infectious disease is consulted for evaluation and management of coag-negative staphylococcus lumbar abscess possible osteomyelitis. Past Medical History Gastric ulcers Right renal mass Hyperglycemia Gout Osteoarthritis of the hip Hypertension Spinal stenosis since 2015 status post multiple surgeries Impotence Idiopathic peripheral neuropathy Obesity Past Surgical History 03/06/2017: L3-S1 bilateral hemilaminectomy, foraminotomy, partial facetectomy, decompression of nerve roots 04/17/2017: L-spine incision and drainage, drainage of seroma. Cultures intraoperatively with no growth. No antibiotics appear to be have prescribed on discharge. 06/21/2017: L3-L5 bilateral decompression, hemilaminectomy, foraminotomy, partial facetectomy, decompression with reexploration 08/23/2017: Right revision laminectomies with partial facetectomies L3-4, L4-5 and L5-S1, Left revision laminectomies with partial facetectomies L3-4, L4-5 and L5-S1, Incision and drainage lumbar abscess. Intraop cultures positive for Coag neg staph. Bilateral hernia repair EGD Colonoscopy Overnight events reviewed Left Eye much improved. No fever No rash No diarrhea Cr improved further. Appears to due to accumulation vanco continued to be affecting the kidneys. Martin in place good UO. Antibiotics Teflaro IV Lines Line sites with no e.o infection Past Medical History Gastric ulcers Right renal mass Hyperglycemia Gout Osteoarthritis of the hip Hypertension Spinal stenosis since 2014 status post multiple surgeries Impotence Idiopathic peripheral neuropathy Obesity Past Surgical History 03/06/2017: L3-S1 bilateral hemilaminectomy, foraminotomy, partial facetectomy, decompression of nerve roots 04/17/2017: L-spine incision and drainage, drainage of seroma. Cultures intraoperatively with no growth. No antibiotics appear to be have prescribed on discharge. 06/21/2017: L3-L5 bilateral decompression, hemilaminectomy, foraminotomy, partial facetectomy, decompression with reexploration 08/23/2017: Right revision laminectomies with partial facetectomies L3-4, L4-5 and L5-S1, Left revision laminectomies with partial facetectomies L3-4, L4-5 and L5-S1, Incision and drainage lumbar abscess. Intraop cultures positive for Coag neg staph. Bilateral hernia repair EGD Colonoscopy Allergies: Coded Allergies: vancomycin (Verified Allergy, Severe, 09/05/17) Renal Failure No Known Allergies (Verified Allergy, Unknown, 08/22/17) Objective . Vital Signs Date Time Temp Pulse Resp B/P (MAP) Pulse Ox O2 Delivery O2 Flow Rate FiO2 09/05/17 08:00 96.8 72 18 120/70 (87) 92 09/05/17 07:37 Room Air 09/05/17 00:05 96.6 64 18 137/80 (99) 92 09/04/17 20:55 96.8 61 18 110/66 (81) 92 09/04/17 15:24 97.0 72 19 126/80 (95) 93 . Laboratory Tests Test 09/04/17 05:50 White Blood Count 6.5 TH/MM3 Red Blood Count 2.99 MIL/MM3 Hemoglobin 9.1 GM/DL Hematocrit 26.5 % Mean Corpuscular Volume 88.6 FL Mean Corpuscular Hemoglobin 30.4 PG Mean Corpuscular Hemoglobin Concent 34.3 % Red Cell Distribution Width 16.6 % Platelet Count 299 TH/MM3 Mean Platelet Volume 8.5 FL Neutrophils (%) (Auto) 63.6 % Lymphocytes (%) (Auto) 21.6 % Monocytes (%) (Auto) 8.8 % Eosinophils (%) (Auto) 5.0 % Basophils (%) (Auto) 1.0 % Neutrophils # (Auto) 4.1 TH/MM3 Lymphocytes # (Auto) 1.4 TH/MM3 Monocytes # (Auto) 0.6 TH/MM3 Eosinophils # (Auto) 0.3 TH/MM3 Basophils # (Auto) 0.1 TH/MM3 CBC Comment DIFF FINAL Differential Comment Laboratory Tests Test 09/04/17 05:50 09/05/17 05:50 Blood Urea Nitrogen 44 MG/DL 40 MG/DL Creatinine 3.20 MG/DL 2.81 MG/DL Random Glucose 97 MG/DL 79 MG/DL Total Protein 5.4 GM/DL Albumin 2.1 GM/DL Calcium Level 9.0 MG/DL 9.1 MG/DL Phosphorus Level 4.7 MG/DL Magnesium Level 2.1 MG/DL Alkaline Phosphatase 94 U/L Aspartate Amino Transf (AST/SGOT) 17 U/L Alanine Aminotransferase (ALT/SGPT) 8 U/L Total Bilirubin 1.0 MG/DL Sodium Level 140 MEQ/L 139 MEQ/L Potassium Level 4.8 MEQ/L 4.9 MEQ/L Chloride Level 108 MEQ/L 108 MEQ/L Carbon Dioxide Level 24.6 MEQ/L 22.6 MEQ/L Anion Gap 7 MEQ/L 8 MEQ/L Estimat Glomerular Filtration Rate 19 ML/MIN 22 ML/MIN Imaging Last Impressions Renal Ultrasound 08/27/17 0000 Signed Impressions: Service Date/Time: Sunday, August 27, 2017 17:45 - CONCLUSION: 1. No evidence hydronephrosis. 2. Complex cystic or solid mass in the lower pole the right kidney and complexes at mass in the midpole of the right kidney. 3. Possible punctate nonobstructing calculus in the left kidney. Maicol Sandoval MD Chest X-Ray 08/27/17 0000 Signed Impressions: Service Date/Time: Sunday, August 27, 2017 13:32 - CONCLUSION: Left-sided PICC line tip at the cavoatrial junction. Maicol Sandoval MD Physical Exam GENERAL: This is a well-nourished, well-developed patient, in no apparent distress. SKIN: No rashes, ecchymoses or lesions. Cool and dry. HEAD: Atraumatic. Normocephalic. No temporal or scalp tenderness. EYES: Pupils equal round and reactive. Extraocular motions intact. No scleral icterus. No injection or drainage. ENT: Nose without bleeding, purulent drainage or septal hematoma. Throat without erythema, tonsillar hypertrophy or exudate. Uvula midline. Airway patent. NECK: Trachea midline. Supple, nontender, no meningeal signs. CARDIOVASCULAR: Regular rate and rhythm without murmurs, gallops, or rubs. RESPIRATORY: Clear to auscultation. Breath sounds equal bilaterally. No wheezes , rales, or rhonchi. GASTROINTESTINAL: Abdomen soft, non-tender, nondistended. MUSCULOSKELETAL: Extremities without clubbing, cyanosis, or edema. No joint tenderness, effusion, or edema noted. No calf tenderness. Negative Homans sign bilaterally. Wiggles his toes. Surgical site ok. NEUROLOGICAL: Awake and alert. Non focal exam. Psych cooperative IV line sites with no e.o infection. 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 No hardware in place. Coag neg staph spinal abscess. Acute renal failure: meds related likely, prerenal Staph Lugdenensis spinal abscess Lumbar stenosis with radiculopathy with significant pain. Multiple spinal surgeries in 2017. Left eyebrow cellulitis/conjunctivitis Recs: DC Teflaro IV Restart Daptomycin IV(reviewed renal notes about ok with restarting). Dose will have to be adjusted based on Cr Cl on day of discharge. If Cr Cl < 30 plan on full dose q 48hrs If Cr Cl > 30 will plan on full dose q24 hours. Cr improved. Appreciate nephrology input. Follow Cr trends. Follow clinically. d/w pt. Need Creatinine to stabilize for me to decide on Daptomycin discharge dose for DC planning. Cannot put in infusion orders till last day of Discharge. Marla Culp MD Sep 05, 2017 12:26
--- NOTE | 2017-09-05 13:27 | PD.ORT.PN ---
Subjective Subjective Remarks Patient resting comfortably. Denies headaches. Denies nausea or shortness of breath. States he did have significant leg pain over the last day when mobilizing. Objective Vitals Vital Signs Date Time Temp Pulse Resp B/P (MAP) Pulse Ox O2 Delivery O2 Flow Rate FiO2 09/05/17 08:00 96.8 72 18 120/70 (87) 92 09/05/17 07:37 Room Air 09/05/17 00:05 96.6 64 18 137/80 (99) 92 09/04/17 20:55 96.8 61 18 110/66 (81) 92 09/04/17 15:24 97.0 72 19 126/80 (95) 93 I/O 09/04/17 09/04/17 09/04/17 09/05/17 09/05/17 09/05/17 07:00 15:00 23:00 07:00 15:00 23:00 Intake Total 1160 ml 750 ml 620 ml 1130 ml Output Total 500 ml 750 ml 650 ml 450 ml Balance 660 ml 0 ml -30 ml 680 ml Intake Oral 360 ml 750 ml 620 ml 480 ml IV Total 650 ml Packed Cells 800 ml Output Urine Total 500 ml 750 ml 650 ml 450 ml # Bowel Movements 2 0 0 Result Diagram: 09/04/17 0550 09/05/17 0550 Objective Remarks Awake, alert, no acute distress. Nonlabored respirations Bilateral lower extremities: neuro intact. Sensation intact. Brisk cap refill Dressing to back C/D/I. Assessment & Plan Assessment and Plan 72-year-old man now postop day 14 status post revision bilateral L3 4, L4 5 and L5-S1 laminectomies. With purulence Intra-Op and therefore hardware placement was aborted and only decompression performed. Small intraoperative dural leak. 1. Continue Patient mobilizing out of bed 1-2 times daily with brace on. 2. chemical DVT prophylaxis was contra-indicated at this time per med consult, cont with SCDs (applied) and mobilization 3. ID managing IV abx. Plan to discharge on dapto but awaiting Cr levels to decide dosing. 4. nephrology following renal insufficiency. Creatinine trending down 5. discharge planning for rehabilitation once medically cleared, hopefully early next week. 6. Anemia being managed by medical. Jessica Stubbs MD Sep 05, 2017 13:27
[2017-09-05] MEDS: DAPTOmycin INJ 1,000 MG in SODIUM CHLORIDE 0.9% INJ 100 ML IV SCH (15:15)
[2017-09-05 16:00] VITALS: BP 124/80; PULSE 73; RESP 18; TEMP 96.6; O2SAT 91
[2017-09-05] MEDS: ERGOCALCIFEROL (VIT D2) 50,000 UNIT CAP PO SCH (17:38)
[2017-09-05 20:05] VITALS: BP 123/61; PULSE 76; RESP 20; TEMP 97.4; O2SAT 95
[2017-09-06 00:35] VITALS: BP 136/74; PULSE 74; RESP 19; TEMP 97.7; O2SAT 92
[2017-09-06 03:52] LABS: KAPPA/LAMBDA FREE 1.44 (0.26-1.65)
[2017-09-06] MEDS: ACETAMINOPHEN/HYDROcodone 325 MG/10 MG TAB PO PRN ×2 (06:20→17:08)
[2017-09-06] MEDS: CIPROFLOXACIN 0.3% OPTH OINT 3.5 GM TUBO EACH EYE SCH ×3 (06:32→22:00)
[2017-09-06 06:54] LABS: AUTOMATED NEUTROPHIL # 7.2 TH/MM3 (1.8-7.7); BASOPHIL # 0.1 TH/MM3 (0-0.2); BASOPHIL % 0.8 % (0.0-2.0); EOSINOPHIL # 0.2 TH/MM3 (0-0.4); EOSINOPHIL % 1.8 % (0.0-4.0); HEMOGLOBIN 9.7 GM/DL (13.0-17.0); LYMPH % 13.9 % (9.0-44.0); LYMPHOCYTE # 1.3 TH/MM3 (1.0-4.8); MEAN CELL VOLUME 89.8 FL (80.0-100.0); MEAN CORPUSCULAR HEMOGLOBIN 29.9 PG (27.0-34.0); MEAN CORPUSCULAR HGB CONC 33.3 % (32.0-36.0); MONO % 8.4 % (0.0-8.0); MONOCYTE # 0.8 TH/MM3 (0-0.9); NEUT % 75.1 % (16.0-70.0); PLATELET COUNT 352 TH/MM3 (150-450); RED BLOOD COUNT 3.22 MIL/MM3 (4.50-5.90); RED CELL DISTRIBUTION WIDTH 17.1 % (11.6-17.2); WHITE BLOOD COUNT 9.6 TH/MM3 (4.0-11.0)
[2017-09-06 07:18] LABS: ALBUMIN 2.1 GM/DL (3.4-5.0); BICARBONATE 22.6 MEQ/L (21.0-32.0); CREATININE 2.86 MG/DL (0.60-1.30)
[2017-09-06 08:47] VITALS: BP 126/82; PULSE 73; RESP 16; TEMP 97.4; O2SAT 94
[2017-09-06] MEDS: MAGNESIUM HYDROXIDE SUSP 30 ML CUP PO SCH (09:00)
[2017-09-06] MEDS: GABAPENTIN 400 MG CAP PO SCH ×2 (09:43→22:26)
[2017-09-06] MEDS: ALLOPURINOL 300 MG TAB PO SCH (09:43)
[2017-09-06] MEDS: CARVEDILOL 6.25 MG TAB PO SCH ×2 (09:43→22:26)
[2017-09-06] MEDS: DOCUSATE SODIUM 100 MG CAP PO SCH (09:43)
[2017-09-06] MEDS: SODIUM CHLORIDE 0.9% FLUSH 10 ML FLUSH IV FLUSH SCH ×2 (09:44→21:00)
[2017-09-06] MEDS: TAMSULOSIN HCL 0.4 MG CAP PO SCH (09:50)
[2017-09-06] MEDS: SODIUM BICARBONATE 650 MG TAB PO SCH ×2 (09:50→22:26)
[2017-09-06] MEDS: PANTOPRAZOLE SOD 20 MG DELAYED RELEASE TAB PO SCH (09:50)
[2017-09-06] MEDS: MULTIVITAMIN TAB PO SCH (09:50)
[2017-09-06 11:44] VITALS: BP 127/77; PULSE 79; RESP 18; TEMP 96.9; O2SAT 95
--- NOTE | 2017-09-06 13:09 | HHI.PR ---
Subjective Remarks in no acute distress. pain is fairly controlled. complaining of a rash on the face. had some diarrhea over night. afebrile. at the bedside. Objective Vitals Vital Signs Date Time Temp Pulse Resp B/P (MAP) Pulse Ox O2 Delivery O2 Flow Rate FiO2 09/06/17 11:44 96.9 79 18 127/77 (94) 95 09/06/17 08:47 97.4 73 16 126/82 (97) 94 09/06/17 00:35 97.7 74 19 136/74 (94) 92 09/05/17 20:05 97.4 76 20 123/61 (81) 95 09/05/17 16:00 96.6 73 18 124/80 (95) 91 I/O 09/05/17 09/05/17 09/05/17 09/06/17 09/06/17 09/06/17 07:00 15:00 23:00 07:00 15:00 23:00 Intake Total 1130 ml 600 ml 600 ml 480 ml Output Total 450 ml 3300 ml 1800 ml 600 ml Balance 680 ml -2700 ml -1200 ml -120 ml Intake Oral 480 ml 600 ml 600 ml 480 ml IV Total 650 ml Output Urine Total 450 ml 3300 ml 1800 ml 600 ml # Bowel Movements 0 0 0 1 Result Diagram: 09/06/1725 09/06/1725 Imaging Last Impressions Renal Ultrasound 08/27/17 0000 Signed Impressions: Service Date/Time: Sunday, August 27, 2017 17:45 - CONCLUSION: 1. No evidence hydronephrosis. 2. Complex cystic or solid mass in the lower pole the right kidney and complexes at mass in the midpole of the right kidney. 3. Possible punctate nonobstructing calculus in the left kidney. Maicol Sandoval MD Chest X-Ray 08/27/17 0000 Signed Impressions: Service Date/Time: Sunday, August 27, 2017 13:32 - CONCLUSION: Left-sided PICC line tip at the cavoatrial junction. Maicol Sandoval MD Objective Remarks GENERAL: This is a well-nourished, well-developed patient, in no apparent distress. CARDIOVASCULAR: Regular rate and regular rhythm without murmurs, gallops, or rubs. RESPIRATORY: Clear to auscultation. Breath sounds equal bilaterally. No wheezes , rales, or rhonchi. GASTROINTESTINAL: Abdomen soft, non-tender, nondistended. Normal, active bowel sounds MUSCULOSKELETAL: Extremities without clubbing, cyanosis, or edema. NEURO: Alert & Oriented x4 to person, place, time, situation. Moves all ext x4 Procedures cc: Jessica Stubbs MD Operative Report Date of Surgery: Aug 22, 2017 Preoperative Diagnosis: 1. L3-4, L4-5 lumbar stenosis with neurogenic claudication 2. L3-4, L4-5 and L5-S1 foraminal stenosis with bilateral lower extremity radiculopathy 3. 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 L3-4, L4-5 lumbar stenosis with neurogenic claudication 2. L3-4, L4-5 and L5-S1 foraminal stenosis with bilateral lower extremity radiculopathy 3. 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 Possible deep lumbar abscess Procedure: 1. Right revision laminectomies with partial facetectomies L3-4, L4-5 and L5-S1 2. Left revision laminectomies with partial facetectomies L3-4, L4-5 and L5-S1 3. Incision and drainage lumbar abscess Anesthesia: General Surgeon: Jessica Stubbs Liquor Maker(s): Dr. Rafael Beaulieu Operation and Findings: EBL: 600 cc Complications: Small CSF leak, self-contained Specimens: Multiple cultures and gross pathology sent to lab for evaluation Indications for procedure: Patient is a 72-year-old gentleman who underwent bilateral hemilaminectomies at L3-S1 in February of last year by my partner Dr. Janak Beaulieu. Initially, he had significant improvement in his radicular symptoms, however, he developed a large fluid collection requiring drainage in March. Subsequently, he developed recurrent symptoms and early May with imaging demonstrating a recurrent disc herniation requiring revision bilateral hemilaminectomies at L3-L5 by Dr. Baeulieu. Postoperatively, he had significant improvement in his symptoms for only 2 weeks with recurrent radiculopathy and neurogenic medications symptoms. Repeat imaging at the beginning of July demonstrated a recurrent disc herniation at L4-5 along with significant central and foraminal stenosis at L3-4 and foraminal stenosis at L5-S1. Options of management were discussed with the patient. Surgical intervention in the form of revision decompression with posterior instrumentation and fusion from L3-S1 with transforaminal interbody devices was discussed with the patient. Risks including but not limited to: Infection, hardware malposition or failure, CSF leak which could be persistent, neurologic injury leading to possible weakness or paralysis, pseudoarthrosis, adjacent segment disease requiring revision surgery, possible need for further surgery, worsening or no improvement in symptoms, and other unforeseen complications were all discussed with the patient. At this time he did consent to the above- mentioned procedure. Description of procedure: Patient was brought back to the operating room and general anesthesia then ensued. A Martin catheter was placed. Neuromonitoring leads were placed. An arterial line was started by anesthesia. Patient was then flipped prone onto the operating room table with all bony prominences well padded. Patient was prepped and draped in standard sterile fashion. A timeout was performed to identify the correct patient, side, site and procedures to be performed. Patient received preoperative antibiotics in the form of Ancef and vancomycin. An incision was made through the prior midline incision and extended distally approximately 2 cm. Sharp and electrocautery dissection was carried through the subcutaneous tissue and through the fascia. The remaining spinous process of L3 and S1 were utilized as midline guidelines to allow elevation of the paraspinals and scar tissue from the midline. There is a significant amount of scar tissue between the caudal edge of L3 and the superior edge of S1. This was initially left in place as dissection over the more cranial aspect of L3 and the caudal aspect of S1 was performed. Deep retractors were placed. At this time the facets and transverse processes were identified to allow for pedicle screws to be placed. However, as the right L4- 5 facet was identified and exposed there appeared to be purulent material coming from the facet. This was cultured and sent to the lab for stat interpretation. While awaiting the results, I turned my attention to the scar tissue between the caudal aspect of L3 and the cranial aspect of S1. As I started to remove this tissue, I encountered a large pocket of purulent appearing material just dorsal to the dura. This was also cultured and gross pathology sent to the lab. At this point, the initial cultures came back with moderate white blood cells with significant inflammatory tissue. My partner, Dr. Rafael Beaulieu, was available at this time to assist. As this purulence and inflamed tissue was removed, it was decided to abort the hardware insertion portion of the case given the significant concern for infection. At this time, I turned my attention to the revision decompression portion of the case. There was extensive scar tissue from the caudal aspect of L3 to the cranial aspect of S1. The edges of the remaining lamina, pars and spinous processes were freed of scar tissue and the scar tissue mobilized. The central decompression was revised at L3-4 with removal of the remaining lamina on both the right and left and extended to the lateral recesses. As the lateral recess on the right L3-4 level was removed, there appeared to be a small dural leak which sealed on its own and was self-contained. The central decompression was then revised at L5-S1 with removal of the remaining lamina on both the right and left and extended to the lateral recesses bilaterally with partial facetectomies. The remaining lamina of L4 was freed from scar tissue and then removed with the use of high-speed luisito and Kerrison rongeurs. There was noted to be significant stenosis at the level of the L4 lamina. The entirety of the L4 lamina on both the right and left was removed and the dural sac appeared to be free of significant compression at that point. The decompression was extended to the lateral recess with partial facetectomy, the right and left. The rest of the facets on both the right and left at L3-4, L4-L5 and L5-S1 were left in place as we were not planning to instrument at this time due to the concern for infection. In addition, it was elected to avoid a discectomy at this time as there was concern for infection dorsal to the dura sac and I would not want this tracked into the disc space should it be infection. The wound was thoroughly irrigated throughout the entire procedure but again with 1 L of normal saline laden with gentamicin at the end of the procedure. Hemostasis was achieved. A small piece of DuraGen was placed on the right side over the small dural leak. DuraSeal was then applied. A deep drain was placed below the fascia. The fascia was then closed with #1 PDS sutures. Subcutaneous tissue was then closed with 2-0 PDS sutures and skin closed with 2- 0 nylon sutures. Sterile dressings were applied. Patient was transferred from the operating room table onto a stretcher. Patient was then awoken from general anesthesia without complication. It should be noted the patient remained hemodynamically stable throughout the entire procedure. It should also be noted that there was difficulty obtaining baseline neuromonitoring, however, there were no appreciable adverse events throughout the procedure. Disposition: Patient will remain at bed rest with head of bed flat for at least 48 and possibly 72 hours for his small dural tear. Hemovac will be to gravity only, no suction. Will monitor intraoperative cultures and ask infectious disease to help with treatment. Jessica Stubbs MD Aug 23, 2017 07:47 <Electronically signed by Jessica Stubbs MD> 08/23/17 1311 Medications and IVs Inpatient Medications Acetaminophen (Tylenol) 650 mg Q4H PRN PO SEE LABEL COMMENTS; Start 09/03/17 at 08:15 Acetaminophen/ Hydrocodone Bitart ([place] 10-325 Mg) 1 tab Q4H PRN PO PAIN SCALE 4 TO 7 Last administered on 09/06/17 06:20; Start 08/24/17 at 08:00 Allopurinol (Zyloprim) 300 mg DAILY PO Last administered on 09/06/17at 09:43; Start 08/23/17 at 09:00 Alteplase, Recombinant (Cathflo Activase Inj) 2 mg ONCE ONCE INTRACATH Last administered on 08/29/17at 13:05; Start 08/29/17 at 12:45; Stop 08/29/17 at 12:52 ; Status DC Bisacodyl (Dulcolax Supp) 10 mg DAILY PRN RECTAL CONSTIPATION Last administered on 08/26/17at 08:56; Start 08/22/17 at 17:00 Carvedilol (Coreg) 6.25 mg BID PO Last administered on 09/06/17at 09:43; Start at 09:00 Cefazolin Sodium/ Dextrose 50 ml @ 100 mls/hr TAPE CONTROL SKIN OR SPAR MILL OPERATOR IV Last administered on 08/22/17at 12:15; Start 08/22/17 at 06:30; Stop 08/22/17 at 17:22; Status DC Ceftaroline Fosamil 300 mg/ Sodium Chloride 100 ml @ 100 mls/hr Q12H IV Last administered on 09/05/17at 05:49; Start 09/03/17 at 18:00; Stop 09/05/17 at 12:24; Status DC Chlorhexidine Gluconate (Chlorhexidine 2% Cloth) 3 pack TAPE CONTROL SKIN OR SPAR MILL OPERATOR PRN TOPICAL SEE LABEL COMMENTS Last administered on 08/22/17at 06:00; Start 08/22/17 at 06:30 ; Stop 08/22/17 at 17:21; Status DC Chlorhexidine Gluconate (Hibiclens 4% Top Soln) 1 applic ONCE TOPICAL ; Start at 06:30; Stop 08/22/17 at 17:22; Status DC Ciprofloxacin (Ciloxan 0.3% Opth Oint) 1 applic Q8HR EACH EYE Last administered on 08/30/17at 19:46; Start 08/25/17 at 16:00 Cyclobenzaprine HCl (Flexeril) 10 mg Q8H PRN PO MUSCLE SPASM Last administered on 09/05/17at 17:38; Start 08/23/17 at 07:45 Daptomycin 1000 mg/Sodium Chloride 100 ml @ 200 mls/hr Q48H IV Last administered on 09/05/17at 15:15; Start 09/05/17 at 15:00 Diphenhydramine HCl (Benadryl) 25 mg Q4H PRN PO SEE LABEL COMMENTS; Start at 08:15 Docusate Sodium (Colace) 100 mg BID PO Last administered on 09/06/17 09:43; Start 08/23/17 at 21:00 Ergocalciferol (Drisdol) 50,000 units Q7D PO Last administered on 09/05/17 17: 38; Start 08/29/17 at 18:00 Furosemide (Lasix Inj) 40 mg ONCE ONCE IV PUSH Last administered on 09/05/17at 12:50; Start 09/05/17 at 11:15; Stop 09/05/17 at 11:35; Status DC Furosemide (Lasix) 20 mg BID PO Last administered on 08/25/17at 08:45; Start at 09:00; Stop 08/27/17 at 11:49; Status DC Gabapentin (Neurontin) 400 mg BID PO Last administered on 09/06/17at 09:43; Start 08/28/17 at 09:00 Lactated Ringer's 1,000 ml @ 30 mls/hr Q24H PRN IV SEE LABEL COMMENTS Last administered on 08/22/17at 06:20; Start 08/22/17 at 06:30; Stop 08/22/17 at 17:21 ; Status DC Lisinopril (Prinivil) 10 mg DAILY PO Last administered on 08/25/17at 08:46; Start 08/23/17 at 09:00; Stop 08/27/17 at 16:31; Status DC Magnesium Hydroxide (Milk Of Magnsandhya Liq) 30 ml Q12HR PO Last administered on 09/03/17at 20:27; Start 08/25/17 at 21:00 Metoprolol Tartrate (Lopressor) 25 mg TAPE CONTROL SKIN OR SPAR MILL OPERATOR PRN PO SEE LABEL COMMENTS; Start 08/22/17 at 06:30; Stop 08/22/17 at 17:21; Status DC Midodrine (Proamatine) 5 mg TID@07,12,17 PRN PO Systolic BP less than 90 mmHg; Start 08/26/17 at 09:00 Miscellaneous Information SPECIFIC LAB TO BE DRAWN:VANCOMYCIN TROUGH DATE TO... ONCE ONCE .XX Last administered on 08/27/17at 02:45; Start 08/27/17 at 02:45; Stop 08/27/17 at 02:46; Status DC Miscellaneous Information (Post-op Orders (for Pharmacy)) STAT ONCE XX ; Start 08/22/17 at 17:00; Stop 08/22/17 at 17:29; Status DC Morphine Sulfate (Morphine 1 Mg/ ml CODE ENFORCEMENT SUPERVISOR) 30 mg UNSCH IV Last administered on at 05:54; Start 08/22/17 at 17:00; Stop 08/24/17 at 07:52; Status DC Morphine Sulfate (Morphine Inj) 2 mg Q4H PRN IV PUSH PAIN SCALE 8 TO 10; Start 08/24/17 at 08:00 Multivitamins (Theragran) 1 tab DAILY PO Last administered on 09/06/17at 09:50; Start 08/23/17 at 09:00 Naloxone HCl (Narcan Inj) 0.4 mg UNSCH PRN IV PUSH RESPIRATORY RATE LESS THAN 10; Start 08/22/17 at 17:00; Stop 08/24/17 at 07:52; Status DC Ondansetron HCl (Zofran Inj) 4 mg Q6H PRN IV PUSH NAUSEA OR VOMITING Last administered on 09/01/17 13:29; Start 08/22/17 at 17:00 Pantoprazole Sodium (Protonix) 20 mg DAILY PO Last administered on 09/06/17 09: 50; Start 08/23/17 at 09:00 Patiromer (Veltassa) 8.4 gm STAT ONCE PO Last administered on 08/31/17 20:25; Start 08/31/17 at 19:45; Stop 08/31/17 at 19:46; Status DC CODE ENFORCEMENT SUPERVISOR Dosage Infused (Pha) 1 Q8HR .XX Last administered on 08/24/17 05:47; Start 08/22/17 at 22:00; Stop 08/24/17 at 07:52; Status DC Pharmacy Profile Note 0 ml @ 0 mls/hr UNSCH OTHER ; Start 08/22/17 at 17:00; Stop 08/27/17 at 10:42; Status DC Piperacillin Sod/ Tazobactam Sod 50 ml @ 100 mls/hr Q12H IV Last administered on 08/25/17 05:24; Start 08/22/17 at 18:00; Stop 08/25/17 at 13:16; Status DC Povidone Iodine (Betadine 5% Antisepsis Kit) 1 applic TAPE CONTROL SKIN OR SPAR MILL OPERATOR PRN EACH NARE SEE LABEL COMMENTS Last administered on 08/22/17 06:36; Start 08/22/17 at 06:30 ; Stop 08/22/17 at 17:21; Status DC Sodium Biphosphate/ Sodium Phosphate (Fleets Enema (Adult)) 133 ml DAILY PRN [place] CONSTIPATION; Start 08/22/17 at 17:00 Sodium Polystyrene Sulfonate (Kayexalate Liq) 15 gm ONCE ONCE PO Last administered on 08/31/17 16:04; Start 08/31/17 at 14:15; Stop 08/31/17 at 14:34; Status DC Sodium Bicarbonate (Sodium Bicarbonate) 650 mg Q12HR PO Last administered on 09:50; Start 08/29/17 at 09:45 Sodium Chloride 250 ml @ 15 mls/hr ONCE ONCE IV Last administered on 14:53; Start 09/03/17 at 08:15; Stop 09/04/17 at 00:54; Status DC Sodium Chloride (NS Flush) 2 ml BID IV FLUSH Last administered on 09/06/17at 09: 44; Start 08/22/17 at 21:00 Tamsulosin HCl (Flomax) 0.4 mg DAILY PO Last administered on 09/06/17at 09:50; Start 09/01/17 at 09:00 Tobramycin Sulfate (Nebcin Inj) 1,200 mg ONCE ONCE OTHER ; Start 08/22/17 at 16 :01; Stop 08/22/17 at 17:28; Status DC Tranexamic Acid 2010 mg/Sodium Chloride 120.1 ml @ 200 mls/hr UNSCH IV Last administered on 08/22/17at 08:31; Start 08/22/17 at 08:00; Stop 08/22/17 at 14:00 ; Status DC Triamterene/HCTZ (Dyazide 37.5-25 Mg) 1 cap BID PO Last administered on at 21:36; Start 08/23/17 at 09:00; Stop 08/27/17 at 16:31; Status DC Vancomycin HCl (Vancomycin Inj) 2,000 mg ONCE ONCE OTHER Last administered on 08/22/17at 16:00; Start 08/22/17 at 16:00; Stop 08/22/17 at 17:28; Status DC Vancomycin HCl 1000 mg/Sodium Chloride 250 ml @ 250 mls/hr TAPE CONTROL SKIN OR SPAR MILL OPERATOR IV Last administered on 08/22/17at 06:43; Start 08/22/17 at 06:30; Stop 08/22/17 at 17:22 ; Status DC Vancomycin HCl 1250 mg/Sodium Chloride 262.5 ml @ 250 mls/hr ONCE ONCE IV Last administered on 08/23/17at 02:33; Start 08/23/17 at 02:00; Stop 08/23/17 at 03:02; Status DC Vancomycin HCl 2000 mg/Sodium Chloride 520 ml @ 250 mls/hr Q18H IV Last administered on 08/26/17at 08:53; Start 08/25/17 at 15:00; Stop 08/27/17 at 10:42 ; Status DC A/P Problem List: (1) Lumbar post-laminectomy syndrome ICD Code: M96.1 - Postlaminectomy syndrome, not elsewhere classified (2) Lumbar spinal stenosis ICD Code: M48.061 - Spinal stenosis, lumbar region without neurogenic claudication Status: Chronic (3) HTN (hypertension) ICD Code: I10 - Essential (primary) hypertension Status: Chronic (4) History of gout ICD Code: Z87.39 - Personal history of other diseases of the musculoskeletal system and connective tissue Status: Chronic (5) S/P lumbar laminectomy ICD Code: Z98.890 - Other specified postprocedural states Assessment and Plan Acute Renal failure improved and remains fairly stable. Etiology is unclear, most likely due to previous IV vancomycin administration. Following Creatinine trend. Nephrology Dr. Oh currently following; Martin catheter reinserted due to urinary retention Left renal complex mass- Patient has been counseled by nephrology to follow up with his urologist Dr. Pettit for further outpatient workup Revision bilateral L3,4,5,S1 laminectomies Surgery performed 08/22/17 - continue post operative care per orthopedic surgery ; Continue physical therapy. Previous Hypotension - resolved History of essential hypertension Stable, continue Coreg Midodrine provided PRN Staph Lugdenensis Spinal infection/ abscess Colonization vs chronic infection Cultures show christine-sensitive staph Lugdenensis switched to IV Daptomycin. ID and ortho following. ANEMIA transfused with PRBC. H/H improved- will monitor. Gout Continue allopurinol DVT prophylaxis Bilateral SCDs, anticoagulation contraindicated secondary to spinal surgery continue PT/OT. Discharge Planning on IV antibiotic. when cleared by consultants. Problem Qualifiers (1) HTN (hypertension): Qualified Codes: I10 - Essential (primary) hypertension Jayesh Hsu MD Sep 06, 2017 13:09
[2017-09-06 15:41] VITALS: BP 119/73; PULSE 76; RESP 17; TEMP 98.6; O2SAT 96
--- NOTE | 2017-09-06 18:03 | HHI.NPPN ---
Subjective History of Present Illness 72-year-old male with a history of severe degenerative disease of the spine with a history of multiple back surgeries and lumbar stenosis. 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 Apparently the patient was receiving vancomycin from August 22 subsequently discontinued secondary to worsening renal function. He is currently on Cipro and daptomycin which was started on 27 August 2017. Patient's creatinine level was noted to have been 0.6 to August 23, 2017 subsequently rising to a level of 2.39 date of consultation. Of interest patient also was experiencing hypotension from August 24 until August 26, 2017. His furosemide was discontinued today. At time of consultation he was on lisinopril as well as Dyazide. Also on Protonix. Patient indicated early in the admission he did have a poor appetite. No previous history of CKD. Interval History Patient complaining of a rash involving his face today. Otherwise doing well. Review of Systems General General Remarks Negative complaints besides back pain Musculoskeletal MS: Pain/Stiffness Objective Data Data Vital Signs Date Time Temp Pulse Resp B/P (MAP) Pulse Ox O2 Delivery O2 Flow Rate FiO2 09/06/17 15:41 98.6 76 17 119/73 (88) 96 09/06/17 11:44 96.9 79 18 127/77 (94) 95 09/06/17 08:47 97.4 73 16 126/82 (97) 94 09/06/17 00:35 97.7 74 19 136/74 (94) 92 09/05/17 20:05 97.4 76 20 123/61 (81) 95 -: 09/06/17 0625 09/06/17 0625 Physical Exam General Appearance: No Acute Distress, Comfortable Eyes Eye Exam: Pupils Equal Throat Throat Exam: Oral Mucosa Hartly & Moist Pulmonary Resp Exam: Clear Bilaterally, Breath Sounds Equal Cardiology CV Exam: Regular, Normal Sinus Rhythm Gastrointestinal/Abdomen GI Exam: Soft, Non-Tender Genitourinary Exam: Clear Urine Integumentary Skin Exam: Clear, Warm Extremeties Extremities Exam: No Edema Neurologic Neuro Exam: Alert, Awake, Oriented Psychiatric Psych Exam: Appropriate Responses Assessment/Plan Problem List: (1) Acute kidney insufficiency ICD Codes: N28.9 - Disorder of kidney and ureter, unspecified Status: Acute Plan: The patient had a brisk response to furosemide yesterday. Edema has resolved. BUN has improved creatinine relatively stable. Continue to monitor. Hopefully the creatinine will continue this trend downward. Eosinophilia has resolved but will repeat CBC in a.m. with differential. Presently uncertain as to significance of facial rash in regard to possible allergy is concerned. Recommend avoidance of Vancomycin in the future. Renal US discussed with the patient. Has 2 complex lesions on right kidney. States he is well aware of these and is under the care of Dr. Gerald Pettit. 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 He also has urinary retention and this will need to be re-evaluated. Advised importance of f/u with urology as outpatient. Medications should be adjusted for the patient's estimated GFR if clinically indicated. Avoid agents with significant potential for nephrotoxicity possible including NSAIDs for analgesia, iodine contrast agents. Gadolinium is contraindicated if the GFR is below 30. (2) Lumbar spinal stenosis ICD Codes: M48.061 - Spinal stenosis, lumbar region without neurogenic claudication Status: Chronic (3) HTN (hypertension) ICD Codes: I10 - Essential (primary) hypertension Status: Chronic (4) Anemia ICD Codes: D64.9 - Anemia, unspecified Plan: Received 5U of blood this weekend Problem Qualifiers (1) HTN (hypertension): Qualified Codes: I10 - Essential (primary) hypertension Benjy Oh MD Sep 06, 2017 18:03
[2017-09-06] MEDS: HYDROCORTISONE 0.5% CREAM 30 GM TOPICAL SCH (22:26)
[2017-09-07] VITALS: BP 131/76; PULSE 75; RESP 15; TEMP 96.4; O2SAT 92
[2017-09-07] MEDS: CIPROFLOXACIN 0.3% OPTH OINT 3.5 GM TUBO EACH EYE SCH ×3 (06:00→21:27)
[2017-09-07 06:35] LABS: AUTOMATED NEUTROPHIL # 6.5 TH/MM3 (1.8-7.7); BASOPHIL # 0.1 TH/MM3 (0-0.2); BASOPHIL % 0.7 % (0.0-2.0); EOSINOPHIL # 0.1 TH/MM3 (0-0.4); EOSINOPHIL % 1.2 % (0.0-4.0); HEMOGLOBIN 10.1 GM/DL (13.0-17.0); LYMPH % 14.6 % (9.0-44.0); LYMPHOCYTE # 1.3 TH/MM3 (1.0-4.8); MEAN CELL VOLUME 90.7 FL (80.0-100.0); MEAN CORPUSCULAR HEMOGLOBIN 30.5 PG (27.0-34.0); MEAN CORPUSCULAR HGB CONC 33.7 % (32.0-36.0); MONO % 7.6 % (0.0-8.0); MONOCYTE # 0.6 TH/MM3 (0-0.9); NEUT % 75.9 % (16.0-70.0); PLATELET COUNT 351 TH/MM3 (150-450); RED BLOOD COUNT 3.31 MIL/MM3 (4.50-5.90); RED CELL DISTRIBUTION WIDTH 17.2 % (11.6-17.2); WHITE BLOOD COUNT 8.6 TH/MM3 (4.0-11.0)
[2017-09-07 06:58] LABS: BICARBONATE 23.4 MEQ/L (21.0-32.0); CALCIUM 8.7 MG/DL (8.5-10.1); CREATININE 2.7 MG/DL (0.60-1.30)
[2017-09-07 08:00] VITALS: BP 134/69; PULSE 83; RESP 19; TEMP 98.3; O2SAT 94
[2017-09-07] MEDS: SODIUM BICARBONATE 650 MG TAB PO SCH ×2 (10:05→21:23)
[2017-09-07] MEDS: PANTOPRAZOLE SOD 20 MG DELAYED RELEASE TAB PO SCH (10:05)
[2017-09-07] MEDS: TAMSULOSIN HCL 0.4 MG CAP PO SCH (10:05)
[2017-09-07] MEDS: ALLOPURINOL 300 MG TAB PO SCH (10:05)
[2017-09-07] MEDS: CYCLOBENZAPRINE HCL 10 MG TAB PO PRN (10:05)
[2017-09-07] MEDS: HYDROCORTISONE 0.5% CREAM 30 GM TOPICAL SCH ×2 (10:05→21:00)
[2017-09-07] MEDS: GABAPENTIN 400 MG CAP PO SCH ×2 (10:05→21:23)
[2017-09-07] MEDS: MULTIVITAMIN TAB PO SCH (10:06)
[2017-09-07] MEDS: CARVEDILOL 6.25 MG TAB PO SCH ×2 (10:06→21:23)
[2017-09-07] MEDS: SODIUM CHLORIDE 0.9% FLUSH 10 ML FLUSH IV FLUSH SCH ×2 (10:06→21:00)
--- NOTE | 2017-09-07 10:31 | HHI.PR ---
Subjective Remarks Pt states he feels well other than having hip pain at times. able to move his lower extremities and sensation is intact. Pt states that he does need assistance to be able to get out of bed and move around, states it is a learning process for him. No nausea or vomiting, no chest pains or SOB Objective Vitals Vital Signs Date Time Temp Pulse Resp B/P (MAP) Pulse Ox O2 Delivery O2 Flow Rate FiO2 09/07/17 10:10 Room Air 09/07/17 00:00 96.4 75 15 131/76 (94) 92 09/06/17 22:20 Room Air 09/06/17 15:41 98.6 76 17 119/73 (88) 96 09/06/17 11:44 96.9 79 18 127/77 (94) 95 I/O 09/06/17 09/06/17 09/06/17 09/07/17 09/07/17 09/07/17 07:00 15:00 23:00 07:00 15:00 23:00 Intake Total 480 ml 1700 ml Output Total 600 ml 2200 ml 900 ml Balance -120 ml -500 ml -900 ml Intake Oral 480 ml 1700 ml Output Urine Total 600 ml 2200 ml 900 ml # Bowel Movements 1 Result Diagram: 09/07/17 0446 09/07/17 0446 Imaging Last Impressions Renal Ultrasound 08/27/17 0000 Signed Impressions: Service Date/Time: Sunday, August 27, 2017 17:45 - CONCLUSION: 1. No evidence hydronephrosis. 2. Complex cystic or solid mass in the lower pole the right kidney and complexes at mass in the midpole of the right kidney. 3. Possible punctate nonobstructing calculus in the left kidney. Maicol Sandoval MD Chest X-Ray 08/27/17 0000 Signed Impressions: Service Date/Time: Sunday, August 27, 2017 13:32 - CONCLUSION: Left-sided PICC line tip at the cavoatrial junction. Maicol Sandoval MD Objective Remarks GENERAL: This is a well-nourished, well-developed patient, pleasant CARDIOVASCULAR: Regular rate and regular rhythm without murmurs RESPIRATORY: Clear to auscultation. Breath sounds equal bilaterally. No wheezes GASTROINTESTINAL: Abdomen soft, non-tender, nondistended. Normal, active bowel sounds MUSCULOSKELETAL: Extremities without edema. able to move his lower extremities. sensation is intact NEURO: Alert & Oriented. answers questions. Procedures cc: Jessica Stubbs MD Operative Report Date of Surgery: Aug 22, 2017 Preoperative Diagnosis: 1. L3-4, L4-5 lumbar stenosis with neurogenic claudication 2. L3-4, L4-5 and L5-S1 foraminal stenosis with bilateral lower extremity radiculopathy 3. 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 L3-4, L4-5 lumbar stenosis with neurogenic claudication 2. L3-4, L4-5 and L5-S1 foraminal stenosis with bilateral lower extremity radiculopathy 3. 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 Possible deep lumbar abscess Procedure: 1. Right revision laminectomies with partial facetectomies L3-4, L4-5 and L5-S1 2. Left revision laminectomies with partial facetectomies L3-4, L4-5 and L5-S1 3. Incision and drainage lumbar abscess Anesthesia: General Surgeon: Jessica Stubbs Milk Drying Machine Operator(s): Dr. Rafael Beaulieu Operation and Findings: EBL: 600 cc Complications: Small CSF leak, self-contained Specimens: Multiple cultures and gross pathology sent to lab for evaluation Indications for procedure: Patient is a 72-year-old gentleman who underwent bilateral hemilaminectomies at L3-S1 in February of last year by my partner Dr. Janak Beaulieu. Initially, he had significant improvement in his radicular symptoms, however, he developed a large fluid collection requiring drainage in March. Subsequently, he developed recurrent symptoms and early May with imaging demonstrating a recurrent disc herniation requiring revision bilateral hemilaminectomies at L3-L5 by Dr. Beaulieu. Postoperatively, he had significant improvement in his symptoms for only 2 weeks with recurrent radiculopathy and neurogenic medications symptoms. Repeat imaging at the beginning of July demonstrated a recurrent disc herniation at L4-5 along with significant central and foraminal stenosis at L3-4 and foraminal stenosis at L5-S1. Options of management were discussed with the patient. Surgical intervention in the form of revision decompression with posterior instrumentation and fusion from L3-S1 with transforaminal interbody devices was discussed with the patient. Risks including but not limited to: Infection, hardware malposition or failure, CSF leak which could be persistent, neurologic injury leading to possible weakness or paralysis, pseudoarthrosis, adjacent segment disease requiring revision surgery, possible need for further surgery, worsening or no improvement in symptoms, and other unforeseen complications were all discussed with the patient. At this time he did consent to the above- mentioned procedure. Description of procedure: Patient was brought back to the operating room and general anesthesia then ensued. A Martin catheter was placed. Neuromonitoring leads were placed. An arterial line was started by anesthesia. Patient was then flipped prone onto the operating room table with all bony prominences well padded. Patient was prepped and draped in standard sterile fashion. A timeout was performed to identify the correct patient, side, site and procedures to be performed. Patient received preoperative antibiotics in the form of Ancef and vancomycin. An incision was made through the prior midline incision and extended distally approximately 2 cm. Sharp and electrocautery dissection was carried through the subcutaneous tissue and through the fascia. The remaining spinous process of L3 and S1 were utilized as midline guidelines to allow elevation of the paraspinals and scar tissue from the midline. There is a significant amount of scar tissue between the caudal edge of L3 and the superior edge of S1. This was initially left in place as dissection over the more cranial aspect of L3 and the caudal aspect of S1 was performed. Deep retractors were placed. At this time the facets and transverse processes were identified to allow for pedicle screws to be placed. However, as the right L4- 5 facet was identified and exposed there appeared to be purulent material coming from the facet. This was cultured and sent to the lab for stat interpretation. While awaiting the results, I turned my attention to the scar tissue between the caudal aspect of L3 and the cranial aspect of S1. As I started to remove this tissue, I encountered a large pocket of purulent appearing material just dorsal to the dura. This was also cultured and gross pathology sent to the lab. At this point, the initial cultures came back with moderate white blood cells with significant inflammatory tissue. My partner, Dr. Rafael Beaulieu, was available at this time to assist. As this purulence and inflamed tissue was removed, it was decided to abort the hardware insertion portion of the case given the significant concern for infection. At this time, I turned my attention to the revision decompression portion of the case. There was extensive scar tissue from the caudal aspect of L3 to the cranial aspect of S1. The edges of the remaining lamina, pars and spinous processes were freed of scar tissue and the scar tissue mobilized. The central decompression was revised at L3-4 with removal of the remaining lamina on both the right and left and extended to the lateral recesses. As the lateral recess on the right L3-4 level was removed, there appeared to be a small dural leak which sealed on its own and was self-contained. The central decompression was then revised at L5-S1 with removal of the remaining lamina on both the right and left and extended to the lateral recesses bilaterally with partial facetectomies. The remaining lamina of L4 was freed from scar tissue and then removed with the use of high-speed luisito and Kerrison rongeurs. There was noted to be significant stenosis at the level of the L4 lamina. The entirety of the L4 lamina on both the right and left was removed and the dural sac appeared to be free of significant compression at that point. The decompression was extended to the lateral recess with partial facetectomy, the right and left. The rest of the facets on both the right and left at L3-4, L4-L5 and L5-S1 were left in place as we were not planning to instrument at this time due to the concern for infection. In addition, it was elected to avoid a discectomy at this time as there was concern for infection dorsal to the dura sac and I would not want this tracked into the disc space should it be infection. The wound was thoroughly irrigated throughout the entire procedure but again with 1 L of normal saline laden with gentamicin at the end of the procedure. Hemostasis was achieved. A small piece of DuraGen was placed on the right side over the small dural leak. DuraSeal was then applied. A deep drain was placed below the fascia. The fascia was then closed with #1 PDS sutures. Subcutaneous tissue was then closed with 2-0 PDS sutures and skin closed with 2- 0 nylon sutures. Sterile dressings were applied. Patient was transferred from the operating room table onto a stretcher. Patient was then awoken from general anesthesia without complication. It should be noted the patient remained hemodynamically stable throughout the entire procedure. It should also be noted that there was difficulty obtaining baseline neuromonitoring, however, there were no appreciable adverse events throughout the procedure. Disposition: Patient will remain at bed rest with head of bed flat for at least 48 and possibly 72 hours for his small dural tear. Hemovac will be to gravity only, no suction. Will monitor intraoperative cultures and ask infectious disease to help with treatment. Jessica Stubbs MD Aug 23, 2017 07:47 <Electronically signed by Jessica Stubbs MD> 08/23/17 1311 A/P Problem List: (1) Lumbar post-laminectomy syndrome ICD Code: M96.1 - Postlaminectomy syndrome, not elsewhere classified (2) Lumbar spinal stenosis ICD Code: M48.061 - Spinal stenosis, lumbar region without neurogenic claudication Status: Chronic (3) HTN (hypertension) ICD Code: I10 - Essential (primary) hypertension Status: Chronic (4) History of gout ICD Code: Z87.39 - Personal history of other diseases of the musculoskeletal system and connective tissue Status: Chronic (5) S/P lumbar laminectomy ICD Code: Z98.890 - Other specified postprocedural states Assessment and Plan Acute Renal failure improved and remains fairly stable. Etiology is unclear, most likely due to previous IV vancomycin administration. Cr today 2.70, trending down. Nephrology Dr. Oh following, appreciate input Martin catheter reinserted due to urinary retention Left renal complex mass- Patient has been counseled by nephrology to follow up with his urologist Dr. Pettit for further outpatient workup Revision bilateral L3,4,5,S1 laminectomies Surgery performed 08/22/17 - continue post operative care per orthopedic surgery ; Continue physical therapy. Previous Hypotension - resolved History of essential hypertension Stable, continue Coreg Midodrine provided PRN Staph Lugdenensis Spinal infection/ abscess Colonization vs chronic infection Cultures show christine-sensitive staph Lugdenensis on IV Daptomycin. ID and ortho following. Awaiting final recs from ID. Per their note, waiting for Cr to stabilize and dose to be adjusted for d/c ANEMIA transfused with PRBC. H/H improved- will monitor. Gout Continue allopurinol DVT prophylaxis Bilateral SCDs, anticoagulation contraindicated secondary to spinal surgery continue PT/OT. Discharge Planning on IV antibiotic. when cleared by consultants. will need final dose recs of daptomycin once Cr stabilizes. Problem Qualifiers (1) HTN (hypertension): Qualified Codes: I10 - Essential (primary) hypertension Makenzie Mistry MD Sep 07, 2017 10:31
[2017-09-07 12:00] VITALS: BP 130/72; PULSE 84; RESP 18; TEMP 98.1; O2SAT 94
--- NOTE | 2017-09-07 12:20 | PD.ORT.PN ---
Subjective Subjective Remarks Patient resting comfortably. Very confused currently - talking about cats in the room. Reports mild leg symptoms, but pain relatively controlled at rest. Objective Vitals Vital Signs Date Time Temp Pulse Resp B/P (MAP) Pulse Ox O2 Delivery O2 Flow Rate FiO2 09/07/17 10:10 Room Air 09/07/17 08:00 98.3 83 19 134/69 (90) 94 09/07/17 00:00 96.4 75 15 131/76 (94) 92 09/06/17 22:20 Room Air 09/06/17 15:41 98.6 76 17 119/73 (88) 96 I/O 09/06/17 09/06/17 09/06/17 09/07/17 09/07/17 09/07/17 07:00 15:00 23:00 07:00 15:00 23:00 Intake Total 480 ml 1700 ml Output Total 600 ml 2200 ml 900 ml Balance -120 ml -500 ml -900 ml Intake Oral 480 ml 1700 ml Output Urine Total 600 ml 2200 ml 900 ml # Bowel Movements 1 1 Result Diagram: 09/07/17 0446 09/07/17 0446 Objective Remarks Awake, alert, no acute distress. Confused currently. No facial droop. No apparent weakness. No difficulty with word finding. Nonlabored respirations Bilateral lower extremities: neuro intact. Sensation intact. Brisk cap refill Assessment & Plan Assessment and Plan 72-year-old man now postop day 16 status post revision bilateral L3 4, L4 5 and L5-S1 laminectomies. With purulence Intra-Op and therefore hardware placement was aborted and only decompression performed. Small intraoperative dural leak. 1. Continue Patient mobilizing out of bed 1-2 times daily with brace on. 2. Patient confused today - appears to have delirium. No significant changes to medications. Will ask medicine to evaluate. Labs appear to be improving. No clear signs of worsening infection or sepsis. 3. chemical DVT prophylaxis was contra-indicated at this time per med, cont with SCDs (applied) and mobilization 3. ID managing IV abx. Plan to discharge on dapto but awaiting Cr levels to decide dosing. 4. nephrology following renal insufficiency. Creatinine trending down 5. discharge planning for rehabilitation once medically cleared, hopefully early next week. 6. Hgb improved. Stable currently Jessica Stubbs MD Sep 07, 2017 12:20
--- NOTE | 2017-09-07 13:51 | HHI.PR ---
Addendum to Inpatient Note Addendum Reason: Additional Documentation Additional Information I was notified by RN that pt was more confused this pm. I stopped by and re- evaluated the patient. He does appear to be pleasantly confused. apparently has some visual hallucinations such as drawers and doors on the wall, per and RN. Also RN told me that he had seen some cats. tells me that he loves cats. Pt tells me about him buying roller skates and how he got them for a cheap aguilar. he also states he got up and walked on his own. Initially didn't know he was in the hospital then states he is where he belongs. He states the year is 2015, then says 2016. thinks it is march. I spoke w pt's and she states that he does have some mild confusion at time but not this much. She is worried. Pt hasn't been agitated or aggressive but she states that he speaks of things that are not there and don't quite make sense to her. He says things about her that aren't true. apparently he asked her today how her service parts driver job was and she doesn't work. At this time, will get a psych consult for further eval and recs. Flexeril would cause some confusion and if possible would hold for now and see if this helps his mental status Makenzie Mistry MD Sep 07, 2017 13:51
[2017-09-07] MEDS: DAPTOmycin INJ 1,000 MG in SODIUM CHLORIDE 0.9% INJ 100 ML IV SCH (14:54)
--- NOTE | 2017-09-07 17:41 | HHI.NPPN ---
Subjective History of Present Illness 72-year-old male with a history of severe degenerative disease of the spine with a history of multiple back surgeries and lumbar stenosis. 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 Apparently the patient was receiving vancomycin from August 22 subsequently discontinued secondary to worsening renal function. He is currently on Cipro and daptomycin which was started on 27 August 2017. Patient's creatinine level was noted to have been 0.6 to August 23, 2017 subsequently rising to a level of 2.39 date of consultation. Of interest patient also was experiencing hypotension from August 24 until August 26, 2017. His furosemide was discontinued today. At time of consultation he was on lisinopril as well as Dyazide. Also on Protonix. Patient indicated early in the admission he did have a poor appetite. No previous history of CKD. Interval History Very confused today Primary working up. Flexeril has been held. (Gina Jim) Review of Systems General General Remarks Not obtained d/t clinical status (Gina Jim) Musculoskeletal MS: Pain/Stiffness (Gina Jim) Objective Data Data 09/07/17 09/08/17 19:00 07:00 # Bowel Movements 1 Vital Signs Date Time Temp Pulse Resp B/P (MAP) Pulse Ox O2 Delivery O2 Flow Rate FiO2 09/07/17 12:00 98.1 84 18 130/72 (91) 94 09/07/17 10:10 Room Air 09/07/17 08:00 98.3 83 19 134/69 (90) 94 09/07/17 00:00 96.4 75 15 131/76 (94) 92 09/06/17 22:20 Room Air (Gina Jim) -: 09/07/17 0446 09/07/17 0446 Imaging Last Impressions Renal Ultrasound 08/27/17 0000 Signed Impressions: Service Date/Time: Sunday, August 27, 2017 17:45 - CONCLUSION: 1. No evidence hydronephrosis. 2. Complex cystic or solid mass in the lower pole the right kidney and complexes at mass in the midpole of the right kidney. 3. Possible punctate nonobstructing calculus in the left kidney. Maicol Sandoval MD Chest X-Ray 08/27/17 0000 Signed Impressions: Service Date/Time: Sunday, August 27, 2017 13:32 - CONCLUSION: Left-sided PICC line tip at the cavoatrial junction. Maicol Sandoval MD Medication Review Current Medications Medications (Trade) Dose Ordered Sig/Samia Route Start Time Stop Time Status Last Admin (NS Flush) 2 ml UNSCH PRN IV FLUSH 08/22/17 17:00 (NS Flush) 2 ml BID IV FLUSH 08/22/17 21:00 09/07/17 10:06 (Zofran Inj) 4 mg Q6H PRN IV PUSH 08/22/17 17:00 09/01/17 13:29 (Colace) 100 mg BID PO 08/23/17 21:00 Future Hold 09/06/17 09:43 (Dulcolax Supp) 10 mg DAILY PRN RECTAL 08/22/17 17:00 08/26/17 08:56 (Fleets Enema (Adult)) 133 ml DAILY PRN CA 08/22/17 17:00 (Zyloprim) 300 mg DAILY PO 08/23/17 09:00 09/07/17 10:05 (Coreg) 6.25 mg BID PO 08/23/17 09:00 09/07/17 10:06 (Protonix) 20 mg DAILY PO 08/23/17 09:00 09/07/17 10:05 (Theragran) 1 tab DAILY PO 08/23/17 09:00 09/07/17 10:06 (Flexeril) 10 mg Q8H PRN PO 08/23/17 07:45 Future Hold 09/07/17 10:05 (Morphine Inj) 2 mg Q4H PRN IV PUSH 08/24/17 08:00 ([place] 10-325 Mg) 1 tab Q4H PRN PO 08/24/17 08:00 09/06/17 17:08 (Ciloxan 0.3% Opth Oint) 1 applic Q8HR EACH EYE 08/25/17 16:00 09/07/17 14:54 (Milk Of Magnesia Liq) 30 ml Q12HR PO 08/25/17 21:00 Future Hold 09/03/17 20:27 (Proamatine) 5 mg TID@07,12,17 PRN PO 08/26/17 09:00 (Neurontin) 400 mg BID PO 08/28/17 09:00 09/07/17 10:05 (Sodium Bicarbonate) 650 mg Q12HR PO 08/29/17 09:45 09/07/17 10:05 (Drisdol) 50,000 units Q7D PO 08/29/17 18:00 09/05/17 17:38 (Flomax) 0.4 mg DAILY PO 09/01/17 09:00 09/07/17 10:05 (Tylenol) 650 mg Q4H PRN PO 09/03/17 08:15 (Benadryl) 25 mg Q4H PRN PO 09/03/17 08:15 Daptomycin 1000 mg/Sodium Chloride 100 ml @ 200 mls/hr Q48H IV 09/05/17 15:00 09/07/17 14:54 (Corticaine 0.5% Cream) 1 applic BID TOPICAL 09/06/17 21:00 09/08/17 20:00 09/07/17 10:05 (Gina Jim) Physical Exam General Appearance: No Acute Distress, Comfortable (Gina Jim) Eyes Eye Exam: Pupils Equal (Gina Jim) Throat Throat Exam: Oral Mucosa [employer] & Moist (Gina Jim) Pulmonary Resp Exam: Clear Bilaterally, Breath Sounds Equal (Gina Jim) Cardiology CV Exam: Regular, Normal Sinus Rhythm (Gina Jim) Gastrointestinal/Abdomen GI Exam: Soft, Non-Tender (Gina Jim) Genitourinary Exam: Clear Urine (Gina Jim) Integumentary Skin Exam: Clear, Warm (Gina Jim) Extremeties Extremities Exam: No Edema (Gina Jim) Neurologic Neuro Exam: Alert, Awake Neuro Remarks Pt pleasantly confused today (Gina Jim) Assessment/Plan Problem List: (1) Acute kidney insufficiency ICD Codes: N28.9 - Disorder of kidney and ureter, unspecified Status: Acute Plan: Renal functions improving daily. Volume status acceptable. We will see the patient PRN at this point. Please call if needed. Recommend avoidance of Vancomycin in the future. Renal US discussed with the patient. Has 2 complex lesions on right kidney. States he is well aware of these and is under the care of Dr. Gerald Pettit. 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 He also has urinary retention and this will need to be re-evaluated. Advised importance of f/u with urology as outpatient. Medications should be adjusted for the patient's estimated GFR if clinically indicated. Avoid agents with significant potential for nephrotoxicity possible including NSAIDs for analgesia, iodine contrast agents. Gadolinium is contraindicated if the GFR is below 30. (2) Lumbar spinal stenosis ICD Codes: M48.061 - Spinal stenosis, lumbar region without neurogenic claudication Status: Chronic (3) HTN (hypertension) ICD Codes: I10 - Essential (primary) hypertension Status: Chronic (4) Anemia ICD Codes: D64.9 - Anemia, unspecified Plan: s/p transfusion this weekend (5) Confusion ICD Codes: R41.0 - Disorientation, unspecified Plan: Work up underway by primary. Flexeril has been held Ammonia level and MRI pending. No leukocytosis present and vitals stable so doubtful any underlying infectious process (Gina Jim) Plan The exam, history, and the medical decision-making described in the above note were completed with the assistance of the PA-Evie. I reviewed and agree with the findings presented. (Benjy Oh MD) Problem Qualifiers (1) HTN (hypertension): Qualified Codes: I10 - Essential (primary) hypertension Gina Jim Sep 07, 2017 17:41 Benjy Oh MD Sep 09, 2017 14:42
[2017-09-07 18:34] LABS: ALBUMIN 2.3 GM/DL (3.4-5.0); DIRECT BILIRUBIN ADULT 0.2 MG/DL (0.0-0.2)
[2017-09-07 18:36] LABS: INDIRECT BILIRUBIN 0.3 MG/DL (0.0-0.8); TOTAL BILIRUBIN ADULT 0.5 MG/DL (0.2-1.0); TOTAL PROTEIN 5.9 GM/DL (6.4-8.2)
--- NOTE | 2017-09-07 20:22 | RADRPT ---
EXAM DATE/TIME: 09/07/2017 19:57 [facility] COMPARISON: No previous studies available for comparison. INDICATIONS : Clearance for MRI MEDICAL HISTORY : Hypertension. Numbness, feet. Bleeding ulcers. Arthritis. GOUT. Nocturia SURGICAL HISTORY : Hernia repair. Back surgery ENCOUNTER: Initial ACUITY: 2 weeks PAIN SCORE: 0/10 LOCATION: Skull FINDINGS: A two view examination of the skull demonstrates no evidence of fracture. The pituitary fossa is nor mal in configuration. No radiopaque foreign bodies are seen. CONCLUSION: Nothing seen to preclude MRI. Black Li MD on September 07, 2017 at 20:20 Board Certified Radiologist. This report was verified electronically.
--- NOTE | 2017-09-07 20:28 | RADRPT ---
EXAM DATE/TIME: 09/07/2017 19:58 [facility] COMPARISON: No previous studies available for comparison. INDICATIONS : Clearance for MRI MEDICAL HISTORY : Hypertension. Numbness, feet. Bleeding ulcers. Arthritis. GOUT. Nocturia SURGICAL HISTORY : Hernia repair. Back surgery. ENCOUNTER: Initial ACUITY: 2 weeks PAIN SCORE: 0/10 LOCATION: Abdomen FINDINGS: Vascular coils are seen in the right upper quadrant, presumably gastroduodenal artery. There are surg ical clips projecting over the pelvis. No other radiopaque structures are demonstrated. Nonobstructive bowel gas pattern. There is an old fracture of the right 11th rib. CONCLUSION: No contraindications to MRI demonstrated. Black Li MD on September 07, 2017 at 20:25 Board Certified Radiologist. This report was verified electronically.
--- NOTE | 2017-09-07 21:50 | RADRPT ---
EXAM DATE/TIME: 09/07/2017 20:32 [place] COMPARISON: No previous studies available for comparison. INDICATIONS : Mass. Hallucinations. MEDICAL HISTORY : Hypertension. SURGICAL HISTORY : Hernia repair, laminectomy. ENCOUNTER: Initial ACUITY: 1 day PAIN SCORE: 0/10 LOCATION: Head. TECHNIQUE: Multiplanar, multisequence MRI of the brain was performed without contrast. FINDINGS: CEREBRUM: The ventricles are normal for age. No evidence of midline shift, mass lesion, hemorrhage or acute in farction. No extraaxial fluid collections are seen. The pituitary gland and suprasellar cistern are normal in configuration. WHITE MATTER: No significant signal abnormalities are seen in the white matter. POSTERIOR FOSSA: The cerebellum and brainstem are intact. The 4th ventricle is midline. The cerebellopontine angle is unremarkable. The cerebellar tonsils are normal in position. DIFFUSION IMAGING: No focal areas of restricted diffusion are seen. No evidence of acute infarction. EXTRACRANIAL: The visualized portions of the orbits and paranasal sinuses are unremarkable. CONCLUSION: No mass, acute infarct or other acute intracranial abnormality. Black Li MD on September 07, 2017 at 21:46 Board Certified Radiologist. This report was verified electronically.
[2017-09-08] VITALS: BP 151/92; PULSE 73; RESP 15; TEMP 97.4; O2SAT 95
[2017-09-08 04:00] VITALS: BP 157/83; PULSE 84; RESP 15; TEMP 98.7; O2SAT 91
[2017-09-08] MEDS: CIPROFLOXACIN 0.3% OPTH OINT 3.5 GM TUBO EACH EYE SCH ×3 (05:09→21:13)
[2017-09-08 08:00] VITALS: BP 156/80; PULSE 92; RESP 15; TEMP 100; O2SAT 93
[2017-09-08] MEDS: HYDROCORTISONE 0.5% CREAM 30 GM TOPICAL SCH (09:00)
[2017-09-08] MEDS: SODIUM CHLORIDE 0.9% FLUSH 10 ML FLUSH IV FLUSH SCH ×2 (09:00→20:42)
--- NOTE | 2017-09-08 09:19 | HHI.PR ---
Subjective Remarks Patient tells me that he feels well. Has some pain in his hip but states that he has not been "taking his pain meds for 4 days ". He states that he gets more confused when he wakes up in the morning but after that he thinks he feels well. He knows he is in the hospital in [facility]. He did state that it was 2016 but he got the month of August correctly. When asked about his confusion, patient states that he thought he had seen a cat the other day and realizes that he saw doors and drawers however he does not see any of this at this time. Objective Vitals Vital Signs Date Time Temp Pulse Resp B/P (MAP) Pulse Ox O2 Delivery O2 Flow Rate FiO2 09/08/17 08:00 100.0 92 15 156/80 (105) 93 09/08/17 04:00 98.7 84 15 157/83 (107) 91 09/08/17 00:00 97.4 73 15 151/92 (111) 95 09/07/17 12:00 98.1 84 18 130/72 (91) 94 09/07/17 10:10 Room Air I/O 09/07/17 09/07/17 09/07/17 09/08/17 09/08/17 09/08/17 07:00 15:00 23:00 07:00 15:00 23:00 Intake Total 500 ml Output Total 900 ml 760 ml 600 ml Balance -900 ml -260 ml -600 ml Intake Oral 500 ml Output Urine Total 900 ml 760 ml 600 ml # Bowel Movements 1 Result Diagram: 09/07/17 0446 09/07/17 0446 Imaging Last Impressions Skull X-Ray 09/07/17 0000 Signed Impressions: Service Date/Time: August 19:57 - CONCLUSION: Nothing seen to preclude MRI. Black Li MD Brain MRI 09/07/17 0000 Signed Impressions: Service Date/Time: August 20:32 - CONCLUSION: No mass, acute infarct or other acute intracranial abnormality. Black Li MD Abdomen X-Ray 09/07/17 0000 Signed Impressions: Service Date/Time: August 19:58 - CONCLUSION: No contraindications to MRI demonstrated. Black Li MD Renal Ultrasound 08/27/17 0000 Signed Impressions: Service Date/Time: Sunday, August 27, 2017 17:45 - CONCLUSION: 1. No evidence hydronephrosis. 2. Complex cystic or solid mass in the lower pole the right kidney and complexes at mass in the midpole of the right kidney. 3. Possible punctate nonobstructing calculus in the left kidney. Maicol Sandoval MD Chest X-Ray 08/27/17 0000 Signed Impressions: Service Date/Time: Sunday, August 27, 2017 13:32 - CONCLUSION: Left-sided PICC line tip at the cavoatrial junction. Maicol Sandoval MD Objective Remarks GENERAL: This is a well-nourished, well-developed patient, pleasant. He seems less confused this morning. CARDIOVASCULAR: Regular rate and regular rhythm without murmurs RESPIRATORY: Clear to auscultation. Breath sounds equal bilaterally. No wheezes GASTROINTESTINAL: Abdomen soft, non-tender, nondistended. Normal, active bowel sounds MUSCULOSKELETAL: Extremities without edema. able to move his lower extremities. sensation is intact NEURO: Alert & Oriented. answers questions. Procedures cc: Jessica Stubbs MD Operative Report Date of Surgery: Aug 22, 2017 Preoperative Diagnosis: 1. L3-4, L4-5 lumbar stenosis with neurogenic claudication 2. L3-4, L4-5 and L5-S1 foraminal stenosis with bilateral lower extremity radiculopathy 3. 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 L3-4, L4-5 lumbar stenosis with neurogenic claudication 2. L3-4, L4-5 and L5-S1 foraminal stenosis with bilateral lower extremity radiculopathy 3. 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 Possible deep lumbar abscess Procedure: 1. Right revision laminectomies with partial facetectomies L3-4, L4-5 and L5-S1 2. Left revision laminectomies with partial facetectomies L3-4, L4-5 and L5-S1 3. Incision and drainage lumbar abscess Anesthesia: General Surgeon: Jessica Stubbs Project Controller(s): Dr. Rafael Beaulieu Operation and Findings: EBL: 600 cc Complications: Small CSF leak, self-contained Specimens: Multiple cultures and gross pathology sent to lab for evaluation Indications for procedure: Patient is a 72-year-old gentleman who underwent bilateral hemilaminectomies at L3-S1 in February of last year by my partner Dr. Janak Beaulieu. Initially, he had significant improvement in his radicular symptoms, however, he developed a large fluid collection requiring drainage in March. Subsequently, he developed recurrent symptoms and early May with imaging demonstrating a recurrent disc herniation requiring revision bilateral hemilaminectomies at L3-L5 by Dr. Beaulieu. Postoperatively, he had significant improvement in his symptoms for only 2 weeks with recurrent radiculopathy and neurogenic medications symptoms. Repeat imaging at the beginning of July demonstrated a recurrent disc herniation at L4-5 along with significant central and foraminal stenosis at L3-4 and foraminal stenosis at L5-S1. Options of management were discussed with the patient. Surgical intervention in the form of revision decompression with posterior instrumentation and fusion from L3-S1 with transforaminal interbody devices was discussed with the patient. Risks including but not limited to: Infection, hardware malposition or failure, CSF leak which could be persistent, neurologic injury leading to possible weakness or paralysis, pseudoarthrosis, adjacent segment disease requiring revision surgery, possible need for further surgery, worsening or no improvement in symptoms, and other unforeseen complications were all discussed with the patient. At this time he did consent to the above- mentioned procedure. Description of procedure: Patient was brought back to the operating room and general anesthesia then ensued. A Martin catheter was placed. Neuromonitoring leads were placed. An arterial line was started by anesthesia. Patient was then flipped prone onto the operating room table with all bony prominences well padded. Patient was prepped and draped in standard sterile fashion. A timeout was performed to identify the correct patient, side, site and procedures to be performed. Patient received preoperative antibiotics in the form of Ancef and vancomycin. An incision was made through the prior midline incision and extended distally approximately 2 cm. Sharp and electrocautery dissection was carried through the subcutaneous tissue and through the fascia. The remaining spinous process of L3 and S1 were utilized as midline guidelines to allow elevation of the paraspinals and scar tissue from the midline. There is a significant amount of scar tissue between the caudal edge of L3 and the superior edge of S1. This was initially left in place as dissection over the more cranial aspect of L3 and the caudal aspect of S1 was performed. Deep retractors were placed. At this time the facets and transverse processes were identified to allow for pedicle screws to be placed. However, as the right L4- 5 facet was identified and exposed there appeared to be purulent material coming from the facet. This was cultured and sent to the lab for stat interpretation. While awaiting the results, I turned my attention to the scar tissue between the caudal aspect of L3 and the cranial aspect of S1. As I started to remove this tissue, I encountered a large pocket of purulent appearing material just dorsal to the dura. This was also cultured and gross pathology sent to the lab. At this point, the initial cultures came back with moderate white blood cells with significant inflammatory tissue. My partner, Dr. Rafael Beaulieu, was available at this time to assist. As this purulence and inflamed tissue was removed, it was decided to abort the hardware insertion portion of the case given the significant concern for infection. At this time, I turned my attention to the revision decompression portion of the case. There was extensive scar tissue from the caudal aspect of L3 to the cranial aspect of S1. The edges of the remaining lamina, pars and spinous processes were freed of scar tissue and the scar tissue mobilized. The central decompression was revised at L3-4 with removal of the remaining lamina on both the right and left and extended to the lateral recesses. As the lateral recess on the right L3-4 level was removed, there appeared to be a small dural leak which sealed on its own and was self-contained. The central decompression was then revised at L5-S1 with removal of the remaining lamina on both the right and left and extended to the lateral recesses bilaterally with partial facetectomies. The remaining lamina of L4 was freed from scar tissue and then removed with the use of high-speed luisito and Kerrison rongeurs. There was noted to be significant stenosis at the level of the L4 lamina. The entirety of the L4 lamina on both the right and left was removed and the dural sac appeared to be free of significant compression at that point. The decompression was extended to the lateral recess with partial facetectomy, the right and left. The rest of the facets on both the right and left at L3-4, L4-L5 and L5-S1 were left in place as we were not planning to instrument at this time due to the concern for infection. In addition, it was elected to avoid a discectomy at this time as there was concern for infection dorsal to the dura sac and I would not want this tracked into the disc space should it be infection. The wound was thoroughly irrigated throughout the entire procedure but again with 1 L of normal saline laden with gentamicin at the end of the procedure. Hemostasis was achieved. A small piece of DuraGen was placed on the right side over the small dural leak. DuraSeal was then applied. A deep drain was placed below the fascia. The fascia was then closed with #1 PDS sutures. Subcutaneous tissue was then closed with 2-0 PDS sutures and skin closed with 2- 0 nylon sutures. Sterile dressings were applied. Patient was transferred from the operating room table onto a stretcher. Patient was then awoken from general anesthesia without complication. It should be noted the patient remained hemodynamically stable throughout the entire procedure. It should also be noted that there was difficulty obtaining baseline neuromonitoring, however, there were no appreciable adverse events throughout the procedure. Disposition: Patient will remain at bed rest with head of bed flat for at least 48 and possibly 72 hours for his small dural tear. Hemovac will be to gravity only, no suction. Will monitor intraoperative cultures and ask infectious disease to help with treatment. Jessica Stubbs MD Aug 23, 2017 07:47 <Electronically signed by Jessica Stubbs MD> 08/23/17 1311 A/P Problem List: (1) Lumbar post-laminectomy syndrome ICD Code: M96.1 - Postlaminectomy syndrome, not elsewhere classified (2) Lumbar spinal stenosis ICD Code: M48.061 - Spinal stenosis, lumbar region without neurogenic claudication Status: Chronic (3) HTN (hypertension) ICD Code: I10 - Essential (primary) hypertension Status: Chronic (4) History of gout ICD Code: Z87.39 - Personal history of other diseases of the musculoskeletal system and connective tissue Status: Chronic (5) S/P lumbar laminectomy ICD Code: Z98.890 - Other specified postprocedural states Assessment and Plan Acute Renal failure improved and remains fairly stable. BMP for today pending Etiology is unclear, most likely due to previous IV vancomycin administration. Cr 2.70, trending down. Nephrology Dr. Oh following, appreciate input. Avoid vancomycin in the future. Martin catheter reinserted due to urinary retention Left renal complex mass- Patient has been counseled by nephrology to follow up with his urologist Dr. Pettit for further outpatient workup Revision bilateral L3,4,5,S1 laminectomies Surgery performed 08/22/17 - continue post operative care per orthopedic surgery ; Continue physical therapy. Previous Hypotension - resolved History of essential hypertension Stable, continue Coreg Midodrine provided PRN Confusion Per , patient has been confused on and off however while in the hospital his confusion has worsened. Patient has never seen a neurologist. He has never seen a psychiatrist either. His visual hallucinations seems to have improved and reports none today. MRI brain neg. check u/a. awaiting final psych eval. consult neurology. 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 ID and ortho following. Awaiting final recs from ID. Per their note, waiting for Cr to stabilize and dose to be adjusted for d/c ANEMIA transfused with PRBC. H/H improved- will monitor. Gout Continue allopurinol DVT prophylaxis Bilateral SCDs, anticoagulation contraindicated secondary to spinal surgery continue PT/OT. Discharge Planning on IV antibiotic. when cleared by consultants. will need final dose recs of daptomycin once Cr stabilizes. Problem Qualifiers (1) HTN (hypertension): Qualified Codes: I10 - Essential (primary) hypertension Makenzie Mistry MD Sep 08, 2017 09:19
[2017-09-08] MEDS: GABAPENTIN 400 MG CAP PO SCH ×2 (09:31→20:48)
[2017-09-08] MEDS: SODIUM BICARBONATE 650 MG TAB PO SCH ×2 (09:31→20:42)
[2017-09-08] MEDS: MULTIVITAMIN TAB PO SCH (09:31)
[2017-09-08] MEDS: PANTOPRAZOLE SOD 20 MG DELAYED RELEASE TAB PO SCH (09:32)
[2017-09-08] MEDS: TAMSULOSIN HCL 0.4 MG CAP PO SCH (09:32)
[2017-09-08] MEDS: ALLOPURINOL 300 MG TAB PO SCH (09:32)
[2017-09-08] MEDS: CARVEDILOL 6.25 MG TAB PO SCH ×2 (09:32→20:42)
[2017-09-08 12:00] VITALS: BP 136/85; PULSE 91; RESP 16; TEMP 99.7; O2SAT 94
--- NOTE | 2017-09-08 12:12 | MB ---
cc: YENNI ROMO M.D. DATE OF CONSULTATION 09/08/2017 DATE OF 1945 REASON FOR CONSULTATION Ongoing confusion, change in mental status, delirium. HISTORY OF PRESENT ILLNESS This is a 72-year-old man who apparently underwent bilateral hemilaminectomy L3-S1 in February 2017 and developed some radicular pain, large fluid collection, drainage in March. He developed recurrent symptoms in early May with imaging showing disc herniation requiring revision with bilateral hemilaminectomies L3-L4. Post-op improvement for 2 weeks with radiculopathy. Again in July of this year he had recurrence of disc herniation at L4-L5, foraminal stenosis L3-4 and foraminal stenosis L5-S1. He has a history of gastric ulcers, right renal mass, hyperglycemia, gout, osteoarthritis, hypertension, spinal stenosis, neuropathy and obesity. 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 He is being followed by nephrology as well for renal failure. He has had previous hypotension that seems to be resolved. He has anemia. He has been transfused. He was continued on allopurinol for his gout. He has been developing confusion over an unknown length of time and per his there were some visual hallucinations. Negative MRI of the brain. Hence neurology is consulted. I believe psychiatry will be seeing him as well. MEDICATIONS His current hospital medications are: 1. Daptomycin. 2. Tylenol p.r.n. 3. Benadryl p.r.n. 4. Hydrocortisone cream p.r.n. 5. Flomax. 6. Drisdol. 7. Sodium bicarb. 8. Gabapentin. 9. Midodrine if needed. 10.Cipro. 11.Eye drops. 12.Morphine p.r.n. 2 mg. 13.Galena 10/325 p.r.n., one tablet. 14.Carvedilol. 15.Pantoprazole. 16.Multivitamins. 17.Zofran. 18.Dulcolax. 19. . PHYSICAL EXAMINATION VITAL SIGNS: T-max 100.0, pulse 92, respiratory rate 15, blood pressure 156/80, satting 93%. NEUROLOGIC: He is awake and alert. He knows his name, knows he is at [facility], cannot tell me the State. I asked him if he is . It is difficult to get a yes or no from him. I asked him for the day of the week, he said it was , the month he stated was July, the date he cannot tell me and the year was 1981. He cannot name the President. Speech is fluent otherwise. Pupils are reactive. It looks like he has seborrheic dermatitis over his face. Tongue is midline. He has tremors in his outstretched hands as well as on [id number]. I am not sure if this is new or old. He is moving everything fairly equal but I did not get him out of bed. Toes neutral. DTRs are 1+. LABORATORY Labs are reviewed. White count 8.6, hemoglobin 10.1, hematocrit 30, platelets 251,000. Chemistries: BUN 40, creatinine 2.7, GFR 23, calcium 8.7. LFTs normal. Ammonia level less than 10. Albumin 2.3. Urinalysis is pending. Immunology reviewed. IMAGING MRI brain: No mass. No acute infarct. No other intracranial abnormalities. IMPRESSION Delirium/encephalopathy in a 72-year-old man. RECOMMENDATIONS Recommend getting the urinalysis. I would get a thyroid panel, B12, as well as an EEG. Psychiatry will see him, although I doubt that he is psychiatric as there is no history. I would limit his pain medication given that his renal parameters are effected medication may be accumulating, just limit it to Tylenol for now. Will continue monitoring him. I will go ahead and order my recommendations and further recommendations to be made accordingly. MD ENA Medrano/SCARLET /11:13 AM 11:34 AM
--- NOTE | 2017-09-08 13:52 | PD.PSY.CON ---
Provisional Diagnosis Admission Date Aug 22, 2017 at 05:44 [place]. Unspecified psychosis vs delirium due to another underline medical condition History of Present Illness Service Psychiatry Consult Requested By Medical team Reason for Consult Psychosis Primary Care Physician Jina Turner M.D. HPI The patient is a 72-year-old man, no previous psychiatric history , no psychiatric admission, no SAs, Medical history of history of gastric ulcers, right renal mass, hyperglycemia, gout, osteoarthritis, hypertension, spinal stenosis, neuropathy and obesity. He has been seen by Infectious Disease, initially for a possible abscess,osteomyelitis, coag-negative staph spinal abscess. He is being followed by nephrology as well for renal failure. who apparently underwent bilateral hemilaminectomyL3-S1 in February 2017 and developed some radicular pain, large fluid collection,drainage in March, He has had previous hypotension that seems to be resolved. He has anemia. He has been transfused. He also has developed confusion and visual hallucinations. Consulted to psychiatry. Chart reviewed. On psychiatric evaluation patient is calm and cooperative. He reports good mood, denies depression, anhedonia, anxiety, SI?HI. He reports visual hallucinations "horses and dogs". As per nurse in charge the patient has been internally stimulated, agitated and having active visual hallucinations. Past Family Social History Coded Allergies: vancomycin (Verified Allergy, Severe, 09/05/17) Renal Failure No Known Allergies (Verified Allergy, Unknown, 08/22/17) Reported Medications Cyclobenzaprine (Flexeril) 5 Mg Tab, PO HS for Muscle Spasm, #90 TAB 0 Refills 08/15/17 Hydrocodone-Acetaminophen (Hydrocodone-Acetaminophen) 10-325 mg Tab, 1 TAB PO Q6H Y for PAIN, TAB 0 Refills 08/15/17 Triamterene-Hydrochlorothiazide (Triamterene-Hydrochlorothiazide) 37.5-25 Mg Cap , 1 CAP PO BID, #30 CAP 0 Refills 06/16/17 Gabapentin (Gabapentin) 400 Mg Cap, 400 CAP PO TID, #30 CAP 0 Refills 06/16/17 Meloxicam (Meloxicam) 15 Mg Tab, 15 MG PO DAILY for Arthritis Pain, #30 TAB 0 Refills 06/16/17 Furosemide (Furosemide) 20 Mg Tab, 20 MG PO BID, #60 TAB 0 Refills 06/16/17 Potassium Chloride ER (Potassium Chloride ER) 10 Meq Cap, 10 MEQ PO BID for Electrolyte Replacement, #30 CAP 0 Refills 04/12/17 Pantoprazole (Protonix) 40 Mg Tab, 20 MG PO DAILY for Reflux, #30 TAB 0 Refills 04/12/17 Multiple Vitamin (Multi-Vitamin Daily) 1 Tab Tab, 1 TAB PO DAILY for Nutritional Supplement, TAB 0 Refills 11/23/16 Lisinopril (Lisinopril) 10 Mg Tab, 10 MG PO DAILY, #30 TAB 0 Refills 11/23/16 Carvedilol (Carvedilol) 6.25 Mg Tab, 6.25 MG PO BID, #60 TAB 0 Refills 11/23/16 Allopurinol (Allopurinol) 300 Mg Tab, 300 MG PO DAILY for Gout, #30 TAB 0 Refills 11/23/16 Current Medications Medications (Trade) Dose Ordered Sig/Samia Route Start Time Stop Time Status Last Admin (NS Flush) 2 ml UNSCH PRN IV FLUSH 08/22/17 17:00 (NS Flush) 2 ml BID IV FLUSH 08/22/17 21:00 09/07/17 21:00 (Zofran Inj) 4 mg Q6H PRN IV PUSH 08/22/17 17:00 09/01/17 13:29 (Colace) 100 mg BID PO 08/23/17 21:00 Future Hold 09/06/17 09:43 (Dulcolax Supp) 10 mg DAILY PRN RECTAL 08/22/17 17:00 08/26/17 08:56 (Fleets Enema (Adult)) 133 ml DAILY PRN TN 08/22/17 17:00 (Zyloprim) 300 mg DAILY PO 08/23/17 09:00 09/08/17 09:32 (Coreg) 6.25 mg BID PO 08/23/17 09:00 09/08/17 09:32 (Protonix) 20 mg DAILY PO 08/23/17 09:00 09/08/17 09:32 (Theragran) 1 tab DAILY PO 08/23/17 09:00 09/08/17 09:31 (Flexeril) 10 mg Q8H PRN PO 08/23/17 07:45 Future Hold 09/07/17 10:05 (Morphine Inj) 2 mg Q4H PRN IV PUSH 08/24/17 08:00 ([place] 10-325 Mg) 1 tab Q4H PRN PO 08/24/17 08:00 09/06/17 17:08 (Ciloxan 0.3% Opth Oint) 1 applic Q8HR EACH EYE 08/25/17 16:00 09/08/17 05:09 (Milk Of Inocencio Lijeana) 30 ml Q12HR PO 08/25/17 21:00 Future Hold 09/03/17 20:27 (Proamatine) 5 mg TID@,12,17 PRN PO 08/26/17 09:00 (Neurontin) 400 mg BID PO 08/28/17 09:00 09/08/17 09:31 (Sodium Bicarbonate) 650 mg Q12HR PO 08/29/17 09:45 09/08/17 09:31 (Drisdol) 50,000 units Q7D PO 08/29/17 18:00 09/05/17 17:38 (Flomax) 0.4 mg DAILY PO 09/01/17 09:00 09/08/17 09:32 (Tylenol) 650 mg Q4H PRN PO 09/03/17 08:15 (Benadryl) 25 mg Q4H PRN PO 09/03/17 08:15 Daptomycin 1000 mg/Sodium Chloride 100 ml @ 200 mls/hr Q48H IV 09/05/17 15:00 09/07/17 14:54 (Corticaine 0.5% Cream) 1 applic BID TOPICAL 09/06/17 21:00 09/08/17 20:00 09/07/17 21:00 (SEROquel) 25 mg BID@09,12 PO 09/09/17 09:00 UNV Physical Exam Vital Signs Vital Signs Date Time Temp Pulse Resp B/P (MAP) Pulse Ox O2 Delivery O2 Flow Rate FiO2 09/08/17 12:00 99.7 91 16 136/85 (102) 94 09/07/17 10:10 Room Air I/O 09/08/17 09/08/17 09/09/17 08:00 16:00 00:00 Output Total 600 ml Balance -600 ml Lab Results Test 09/07/17 17:39 09/08/17 13:33 Total Bilirubin 0.5 MG/DL Direct Bilirubin 0.2 MG/DL Indirect Bilirubin 0.3 MG/DL Aspartate Amino Transf (AST/SGOT) 16 U/L Alanine Aminotransferase (ALT/SGPT) 8 U/L Alkaline Phosphatase 107 U/L Ammonia LESS THAN 10 MCMOL/L Total Protein 5.9 GM/DL Albumin 2.3 GM/DL Date/Time Source Procedure Growth Status 09/01/17 04:25 Stool Stool Stool Occult Blood (SON) - Final HEMOCCULT NEGATIVE Complete 08/22/17 11:23 Wound Back Fungal Smear - Final NO FUNGAL ELEMENTS SEEN. Resulted 08/22/17 11:23 Wound Back Fungal Culture - Preliminary NO GROWTH IN 2 WEEKS Resulted Mental Status Examination Appearance: Appropriate Consciousness: Alert Orientation: Person Motor Activity: Normal gait Speech: Unremarkable Language: Adequate Fund of Knowledge: Adequate Attention and Concentration: Adequate Memory: Impaired Mood: Appropriate Affect: Appropriate Thought Process & Associations: Intact Thought Content: Appropriate Hallucination Type: None, Visual Delusion Type: None Suicidal Ideation: No Suicidal Plan: No Suicidal Intention: No Homicidal Ideation: No Homicidal Plan: No Homicidal Intention: No Insight: Poor Judgment: Poor Assessment & Plan Problem List: (1) Unspecified psychosis ICD Codes: F29 - Unspecified psychosis not due to a substance or known physiological condition Assessment & Plan: At the moment of it this evaluation the patient is has with confusion, disorientation, he also has active visual hallucinations of seeing people, animals around him. Current presentation seems to be the result of underlying medical problems. He does not have any previous psychiatric history. I will start Seroquel 25 mg twice a day to treat his psychosis. My impression is that as the patient's medical condition improved delirium/ psychosis will disappear. At this moment the patient does not meet criteria for involuntary psychiatric admissions, but if psychosis persist beyond medical clearance patient might benefit of psychiatric admission to continue stabilization of psychosis. Haldol 5 mg IM every 8 hours when necessary aggressive behavior and agitation can be order. We'll follow-up. Assessment & Plan Estimated LOS: Niranjan Painter MD Sep 08, 2017 13:52
[2017-09-08 13:57] LABS: HEMATOCRIT 31.9 % (39.0-51.0); HEMOGLOBIN 10.4 GM/DL (13.0-17.0)
[2017-09-08 14:25] LABS: BICARBONATE 22.1 MEQ/L (21.0-32.0); CALCIUM 9.4 MG/DL (8.5-10.1); CREATININE 2.58 MG/DL (0.60-1.30)
[2017-09-08 14:53] LABS: FREE T4 0.63 NG/DL (0.76-1.46)
[2017-09-08 16:00] VITALS: BP 133/82; PULSE 91; RESP 15; TEMP 99.9; O2SAT 93
[2017-09-08 20:00] VITALS: BP 134/83; PULSE 85; RESP 17; TEMP 97.1; O2SAT 93
--- NOTE | 2017-09-08 21:12 | MG ---
cc: YENNI ROMO M.D. Lab No: [id number] Date: Age: 72 Sex: M Race: READING/REFERRING [place]. ROOM: 1605. Without hyperventilation. Only photic stimulation. Awake. MRI is negative. Ongoing hallucinations with visual hallucinations, some delirium. On Flomax, Neurontin, Coreg, Cipro, Protonix. DESCRIPTION OF THE RECORD: There is overall background slowing predominately 3-4 Hz and muscle artifact does not correlate with any epileptiform features. EKG does look sinus. The patient is very fidgety and constantly moving. Photic stimulation with mild driving response. IMPRESSION: Mild background slowing without any epileptic activity and the telecommunications switch technician states that at epoch 115 he starts hallucinating; however, I am not sure what the hallucination may be. There is no evidence of any epileptiform features, just some mild slowing can be seen. Medicine effect or an encephalopathic process. Clinical correlation. MD ENA Medrano/ACE /7:46 PM /9:03 PM
--- NOTE | 2017-09-08 23:26 | HHI.IDPN ---
Subjective Subjective Remarks is a 72 y/o CM who underwent bilateral hemilaminectomies at L3-S1 in February of 2017. Patient reports this is his 4th surgery but he has had no hardware to date. He reports he initially had significant improvement in his radicular symptoms, however, he developed a large fluid collection requiring drainage in March. Subsequently, he developed recurrent symptoms and early May with imaging demonstrating a recurrent disc herniation requiring revision bilateral hemilaminectomies at L3-L5 by Dr. Beaulieu. Postoperatively , he had significant improvement in his symptoms for only 2 weeks with recurrent radiculopathy and neurogenic medications symptoms. Repeat imaging at the beginning of July demonstrated a recurrent disc herniation at L4-5 along with significant central and foraminal stenosis at L3-4 and foraminal stenosis at L5-S1. Options of management were discussed with the patient. Summary of his surgeries in 2017 to date: 03/06/2017: L3-S1 bilateral hemilaminectomy, foraminotomy, partial facetectomy, decompression of nerve roots 04/17/2017: L-spine incision and drainage, drainage of seroma. Cultures intraoperatively with no growth. No antibiotics appear to be have prescribed on discharge. 06/21/2017: L3-L5 bilateral decompression, hemilaminectomy, foraminotomy, partial facetectomy, decompression with reexploration 08/23/2017: Right revision laminectomies with partial facetectomies L3-4, L4-5 and L5-S1, Left revision laminectomies with partial facetectomies L3-4, L4-5 and L5-S1, Incision and drainage lumbar abscess. Intraop cultures positive for Coag neg staph. Pertinent positives and negatives: denies B/B incontinence denies fever, chills or night sweats Reports anorexia and weight loss. Has perineal sensation. Defers rectal exam due to significant pain. No paresthesias or focal neuro deficit in LEs. Infectious disease is consulted for evaluation and management of coag-negative staphylococcus lumbar abscess possible osteomyelitis. Past Medical History Gastric ulcers Right renal mass Hyperglycemia Gout Osteoarthritis of the hip Hypertension Spinal stenosis since 2015 status post multiple surgeries Impotence Idiopathic peripheral neuropathy Obesity Past Surgical History 03/06/2017: L3-S1 bilateral hemilaminectomy, foraminotomy, partial facetectomy, decompression of nerve roots 04/17/2017: L-spine incision and drainage, drainage of seroma. Cultures intraoperatively with no growth. No antibiotics appear to be have prescribed on discharge. 06/21/2017: L3-L5 bilateral decompression, hemilaminectomy, foraminotomy, partial facetectomy, decompression with reexploration 08/23/2017: Right revision laminectomies with partial facetectomies L3-4, L4-5 and L5-S1, Left revision laminectomies with partial facetectomies L3-4, L4-5 and L5-S1, Incision and drainage lumbar abscess. Intraop cultures positive for Coag neg staph. Bilateral hernia repair EGD Colonoscopy Delayed entry patient seen at ~ 5 pm. Overnight events reviewed RN informs me patient confused at times. Not on pain meds. No headache no neck pain No seizures. No limb weakness. No fever No rash No diarrhea Cr improved further. Appears to due to accumulation vanco continued to be affecting the kidneys. Martin in place good UO. Antibiotics Dapto IV Lines Line sites with no e.o infection Past Medical History Gastric ulcers Right renal mass Hyperglycemia Gout Osteoarthritis of the hip Hypertension Spinal stenosis since 2014 status post multiple surgeries Impotence Idiopathic peripheral neuropathy Obesity Past Surgical History 03/06/2017: L3-S1 bilateral hemilaminectomy, foraminotomy, partial facetectomy, decompression of nerve roots 04/17/2017: L-spine incision and drainage, drainage of seroma. Cultures intraoperatively with no growth. No antibiotics appear to be have prescribed on discharge. 06/21/2017: L3-L5 bilateral decompression, hemilaminectomy, foraminotomy, partial facetectomy, decompression with reexploration 08/23/2017: Right revision laminectomies with partial facetectomies L3-4, L4-5 and L5-S1, Left revision laminectomies with partial facetectomies L3-4, L4-5 and L5-S1, Incision and drainage lumbar abscess. Intraop cultures positive for Coag neg staph. Bilateral hernia repair EGD Colonoscopy Allergies: Coded Allergies: vancomycin (Verified Allergy, Severe, 09/05/17) Renal Failure No Known Allergies (Verified Allergy, Unknown, 08/22/17) Objective . Vital Signs Date Time Temp Pulse Resp B/P (MAP) Pulse Ox O2 Delivery O2 Flow Rate FiO2 09/08/17 20:00 97.1 85 17 134/83 (100) 93 09/08/17 16:00 99.9 91 15 133/82 (99) 93 09/08/17 12:00 99.7 91 16 136/85 (102) 94 09/08/17 08:00 100.0 92 15 156/80 (105) 93 09/08/17 04:00 98.7 84 15 157/83 (107) 91 09/08/17 00:00 97.4 73 15 151/92 (111) 95 09/08/17 09/08/17 09/09/17 15:00 23:00 07:00 Intake Total 240 ml Output Total 200 ml Balance 40 ml Intake Oral 240 ml Output Urine Total 200 ml # Bowel Movements 2 . Laboratory Tests Test 09/07/17 04:46 09/08/17 13:33 White Blood Count 8.6 TH/MM3 Red Blood Count 3.31 MIL/MM3 Hemoglobin 10.1 GM/DL 10.4 GM/DL Hematocrit 30.0 % 31.9 % Mean Corpuscular Volume 90.7 FL Mean Corpuscular Hemoglobin 30.5 PG Mean Corpuscular Hemoglobin Concent 33.7 % Red Cell Distribution Width 17.2 % Platelet Count 351 TH/MM3 Mean Platelet Volume 9.0 FL Neutrophils (%) (Auto) 75.9 % Lymphocytes (%) (Auto) 14.6 % Monocytes (%) (Auto) 7.6 % Eosinophils (%) (Auto) 1.2 % Basophils (%) (Auto) 0.7 % Neutrophils # (Auto) 6.5 TH/MM3 Lymphocytes # (Auto) 1.3 TH/MM3 Monocytes # (Auto) 0.6 TH/MM3 Eosinophils # (Auto) 0.1 TH/MM3 Basophils # (Auto) 0.1 TH/MM3 CBC Comment DIFF FINAL Differential Comment Laboratory Tests Test 09/07/17 04:46 09/07/17 17:39 09/08/17 13:33 Blood Urea Nitrogen 40 MG/DL 34 MG/DL Creatinine 2.70 MG/DL 2.58 MG/DL Random Glucose 86 MG/DL 97 MG/DL Calcium Level 8.7 MG/DL 9.4 MG/DL Sodium Level 138 MEQ/L 139 MEQ/L Potassium Level 4.4 MEQ/L 4.1 MEQ/L Chloride Level 106 MEQ/L 105 MEQ/L Carbon Dioxide Level 23.4 MEQ/L 22.1 MEQ/L Anion Gap 9 MEQ/L 12 MEQ/L Estimat Glomerular Filtration Rate 23 ML/MIN 25 ML/MIN Total Bilirubin 0.5 MG/DL Direct Bilirubin 0.2 MG/DL Indirect Bilirubin 0.3 MG/DL Aspartate Amino Transf (AST/SGOT) 16 U/L Alanine Aminotransferase (ALT/SGPT) 8 U/L Alkaline Phosphatase 107 U/L Ammonia LESS THAN 10 MCMOL/L Total Protein 5.9 GM/DL Albumin 2.3 GM/DL Vitamin B12 Level 994 PG/ML Free Thyroxine 0.63 NG/DL Thyroid Stimulating Hormone 3rd Gen 1.240 uIU/ML Imaging Last Impressions Renal Ultrasound 08/27/17 0000 Signed Impressions: Service Date/Time: Sunday, August 27, 2017 17:45 - CONCLUSION: 1. No evidence hydronephrosis. 2. Complex cystic or solid mass in the lower pole the right kidney and complexes at mass in the midpole of the right kidney. 3. Possible punctate nonobstructing calculus in the left kidney. Maicol Sandoval MD Chest X-Ray 08/27/17 0000 Signed Impressions: Service Date/Time: Sunday, August 27, 2017 13:32 - CONCLUSION: Left-sided PICC line tip at the cavoatrial junction. Maicol Sandoval MD Physical Exam GENERAL: This is a well-nourished, well-developed patient, in no apparent distress. SKIN: No rashes, ecchymoses or lesions. Cool and dry. HEAD: Atraumatic. Normocephalic. No temporal or scalp tenderness. EYES: Pupils equal round and reactive. Extraocular motions intact. No scleral icterus. No injection or drainage. ENT: Nose without bleeding, purulent drainage or septal hematoma. Throat without erythema, tonsillar hypertrophy or exudate. Uvula midline. Airway patent. NECK: Trachea midline. Supple, nontender, no meningeal signs. CARDIOVASCULAR: Regular rate and rhythm without murmurs, gallops, or rubs. RESPIRATORY: Clear to auscultation. Breath sounds equal bilaterally. No wheezes , rales, or rhonchi. GASTROINTESTINAL: Abdomen soft, non-tender, nondistended. MUSCULOSKELETAL: Extremities without clubbing, cyanosis, or edema. No joint tenderness, effusion, or edema noted. No calf tenderness. Negative Homans sign bilaterally. Wiggles his toes. Surgical site ok. NEUROLOGICAL: Awake and alert. Non focal exam. Psych cooperative IV line sites with no e.o infection. 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 No hardware in place. Coag neg staph spinal abscess. Acute renal failure: meds related likely, prerenal Staph Lugdenensis spinal abscess Lumbar stenosis with radiculopathy with significant pain. Multiple spinal surgeries in 2017. Left eyebrow cellulitis/conjunctivitis Recs: Continue Daptomycin IV(medically necessary cannot be replaced). Dose will have to be adjusted based on Cr Cl on day of discharge. If Cr Cl < 30 plan on full dose q 48hrs If Cr Cl > 30 will plan on full dose q24 hours. Cr improved. Appreciate nephrology input. Follow Cr trends. Follow clinically. d/w pt. Need Creatinine to stabilize for me to decide on Daptomycin discharge dose for DC planning. Cannot put in infusion orders till last day of Discharge. May change to q24 hour or increase in dose needed based on Cr Cl. d.w pasta press operator and RN. Placement issue due to Dapto IV. Marla Culp MD Sep 08, 2017 23:26
[2017-09-09] VITALS: BP 101/60; PULSE 84; RESP 18; TEMP 97; O2SAT 93
--- NOTE | 2017-09-09 06:49 | PD.ORT.PN ---
Subjective Subjective Remarks Patient resting comfortably. Continues to be confused. Seen by psych and neurology yesterday. Objective Vitals Vital Signs Date Time Temp Pulse Resp B/P (MAP) Pulse Ox O2 Delivery O2 Flow Rate FiO2 09/09/17 00:00 97.0 84 18 101/60 (74) 93 09/08/17 20:00 97.1 85 17 134/83 (100) 93 09/08/17 16:00 99.9 91 15 133/82 (99) 93 09/08/17 12:00 99.7 91 16 136/85 (102) 94 09/08/17 08:00 100.0 92 15 156/80 (105) 93 I/O 09/08/17 09/08/17 09/08/17 09/09/17 09/09/17 09/09/17 07:00 15:00 23:00 07:00 15:00 23:00 Intake Total 240 ml 200 ml 0 ml Output Total 600 ml 200 ml 100 ml 100 ml Balance -600 ml 40 ml 100 ml -100 ml Intake Oral 240 ml 200 ml 0 ml Output Urine Total 600 ml 200 ml 100 ml 100 ml # Bowel Movements 2 Result Diagram: 09/08/17 1333 09/08/17 1333 Objective Remarks Sleeping but arousable. Confused currently. Nonlabored respirations Bilateral lower extremities: Poor cooperation with exam this morning but appears grossly neuro intact. Sensation intact. Brisk cap refill Assessment & Plan Assessment and Plan 72-year-old man now postop day 17 status post revision bilateral L3 4, L4 5 and L5-S1 laminectomies. With purulence Intra-Op and therefore hardware placement was aborted and only decompression performed. Small intraoperative dural leak. 1. Continue Patient mobilizing out of bed 1-2 times daily with brace on. 2. Patient confused today - appears to have delirium. Psych and neuro has been consult it. Recommend decreased pain medications and started Seroquel. 3. chemical DVT prophylaxis was contra-indicated at this time per med, cont with SCDs (applied) and mobilization 3. ID managing IV abx. Plan to discharge on dapto but awaiting Cr levels to decide dosing. 4. nephrology following renal insufficiency. Creatinine trending down 5. discharge planning for rehabilitation once medically cleared and mental status improves 6. Hgb improved. Stable currently Jessica Stubbs MD Sep 09, 2017 06:48
[2017-09-09] MEDS: CIPROFLOXACIN 0.3% OPTH OINT 3.5 GM TUBO EACH EYE SCH ×3 (06:54→21:19)
[2017-09-09 08:00] VITALS: BP 136/81; PULSE 80; RESP 18; TEMP 97.4; O2SAT 92
[2017-09-09] MEDS: ALLOPURINOL 300 MG TAB PO SCH (09:29)
[2017-09-09] MEDS: MULTIVITAMIN TAB PO SCH (09:29)
[2017-09-09] MEDS: PANTOPRAZOLE SOD 20 MG DELAYED RELEASE TAB PO SCH (09:29)
[2017-09-09] MEDS: TAMSULOSIN HCL 0.4 MG CAP PO SCH (09:29)
[2017-09-09] MEDS: SODIUM CHLORIDE 0.9% FLUSH 10 ML FLUSH IV FLUSH SCH ×2 (09:29→21:00)
[2017-09-09] MEDS: GABAPENTIN 400 MG CAP PO SCH ×2 (09:29→21:05)
[2017-09-09] MEDS: QUEtiapine FUMARATE 25 MG TAB PO SCH ×2 (09:29→12:19)
[2017-09-09] MEDS: CARVEDILOL 6.25 MG TAB PO SCH ×2 (09:29→21:05)
[2017-09-09] MEDS: SODIUM BICARBONATE 650 MG TAB PO SCH ×2 (09:29→21:05)
[2017-09-09] MEDS ORDERED: DOCUSATE SODIUM 50 MG/SENNA 8.6 MG TAB PO PRN (10:45)
[2017-09-09 12:00] VITALS: BP 144/89; PULSE 86; RESP 18; TEMP 97.6; O2SAT 92
--- NOTE | 2017-09-09 15:06 | HHI.PR ---
Subjective Remarks Patient's is at bedside. He remembers me from 10 days ago. He was confused for the last 1-2 days according to his . Extra medications like Flexeril were stopped and patient is doing much better today. Objective Vitals Vital Signs Date Time Temp Pulse Resp B/P (MAP) Pulse Ox O2 Delivery O2 Flow Rate FiO2 09/09/17 12:00 97.6 86 18 144/89 (107) 92 09/09/17 11:09 09/09/17 08:00 97.4 80 18 136/81 (99) 92 09/09/17 00:00 97.0 84 18 101/60 (74) 93 09/08/17 20:00 97.1 85 17 134/83 (100) 93 09/08/17 16:00 99.9 91 15 133/82 (99) 93 I/O 09/08/17 09/08/17 09/08/17 09/09/17 09/09/17 09/09/17 07:00 15:00 23:00 07:00 15:00 23:00 Intake Total 240 ml 200 ml 0 ml Output Total 600 ml 200 ml 100 ml 100 ml Balance -600 ml 40 ml 100 ml -100 ml Intake Oral 240 ml 200 ml 0 ml Output Urine Total 600 ml 200 ml 100 ml 100 ml Bladder Scan Volume Amount 467 ml # Bowel Movements 2 Result Diagram: 09/08/17 1333 09/08/17 1333 Objective Remarks GENERAL: Well-nourished, well-developed patient. SKIN: Warm and dry. HEAD: Normocephalic. EYES: No scleral icterus. No injection or drainage. NECK: Supple, trachea midline. No JVD or lymphadenopathy. CARDIOVASCULAR: Regular rate and rhythm without murmurs, gallops, or rubs. RESPIRATORY: Breath sounds equal bilaterally. No accessory muscle use. GASTROINTESTINAL: Abdomen soft, non-tender, nondistended. BACK: Tender at surgical site. EXTREMITIES: no significant edema NEURO: Weak legs, 2/5-3/5 strength bilaterally Procedures cc: Jessica Stubbs MD Operative Report Date of Surgery: Aug 22, 2017 Preoperative Diagnosis: 1. L3-4, L4-5 lumbar stenosis with neurogenic claudication 2. L3-4, L4-5 and L5-S1 foraminal stenosis with bilateral lower extremity radiculopathy 3. 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 L3-4, L4-5 lumbar stenosis with neurogenic claudication 2. L3-4, L4-5 and L5-S1 foraminal stenosis with bilateral lower extremity radiculopathy 3. 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 Possible deep lumbar abscess Procedure: 1. Right revision laminectomies with partial facetectomies L3-4, L4-5 and L5-S1 2. Left revision laminectomies with partial facetectomies L3-4, L4-5 and L5-S1 3. Incision and drainage lumbar abscess Anesthesia: General Surgeon: Jessica Stubbs Spring Coiling Machine Setter(s): Dr. Rafael Beaulieu Operation and Findings: EBL: 600 cc Complications: Small CSF leak, self-contained Specimens: Multiple cultures and gross pathology sent to lab for evaluation Indications for procedure: Patient is a 72-year-old gentleman who underwent bilateral hemilaminectomies at L3-S1 in February of last year by my partner Dr. Janak Beaulieu. Initially, he had significant improvement in his radicular symptoms, however, he developed a large fluid collection requiring drainage in March. Subsequently, he developed recurrent symptoms and early May with imaging demonstrating a recurrent disc herniation requiring revision bilateral hemilaminectomies at L3-L5 by Dr. Beaulieu. Postoperatively, he had significant improvement in his symptoms for only 2 weeks with recurrent radiculopathy and neurogenic medications symptoms. Repeat imaging at the beginning of July demonstrated a recurrent disc herniation at L4-5 along with significant central and foraminal stenosis at L3-4 and foraminal stenosis at L5-S1. Options of management were discussed with the patient. Surgical intervention in the form of revision decompression with posterior instrumentation and fusion from L3-S1 with transforaminal interbody devices was discussed with the patient. Risks including but not limited to: Infection, hardware malposition or failure, CSF leak which could be persistent, neurologic injury leading to possible weakness or paralysis, pseudoarthrosis, adjacent segment disease requiring revision surgery, possible need for further surgery, worsening or no improvement in symptoms, and other unforeseen complications were all discussed with the patient. At this time he did consent to the above- mentioned procedure. Description of procedure: Patient was brought back to the operating room and general anesthesia then ensued. A Martin catheter was placed. Neuromonitoring leads were placed. An arterial line was started by anesthesia. Patient was then flipped prone onto the operating room table with all bony prominences well padded. Patient was prepped and draped in standard sterile fashion. A timeout was performed to identify the correct patient, side, site and procedures to be performed. Patient received preoperative antibiotics in the form of Ancef and vancomycin. An incision was made through the prior midline incision and extended distally approximately 2 cm. Sharp and electrocautery dissection was carried through the subcutaneous tissue and through the fascia. The remaining spinous process of L3 and S1 were utilized as midline guidelines to allow elevation of the paraspinals and scar tissue from the midline. There is a significant amount of scar tissue between the caudal edge of L3 and the superior edge of S1. This was initially left in place as dissection over the more cranial aspect of L3 and the caudal aspect of S1 was performed. Deep retractors were placed. At this time the facets and transverse processes were identified to allow for pedicle screws to be placed. However, as the right L4- 5 facet was identified and exposed there appeared to be purulent material coming from the facet. This was cultured and sent to the lab for stat interpretation. While awaiting the results, I turned my attention to the scar tissue between the caudal aspect of L3 and the cranial aspect of S1. As I started to remove this tissue, I encountered a large pocket of purulent appearing material just dorsal to the dura. This was also cultured and gross pathology sent to the lab. At this point, the initial cultures came back with moderate white blood cells with significant inflammatory tissue. My partner, Dr. Rafael Beaulieu, was available at this time to assist. As this purulence and inflamed tissue was removed, it was decided to abort the hardware insertion portion of the case given the significant concern for infection. At this time, I turned my attention to the revision decompression portion of the case. There was extensive scar tissue from the caudal aspect of L3 to the cranial aspect of S1. The edges of the remaining lamina, pars and spinous processes were freed of scar tissue and the scar tissue mobilized. The central decompression was revised at L3-4 with removal of the remaining lamina on both the right and left and extended to the lateral recesses. As the lateral recess on the right L3-4 level was removed, there appeared to be a small dural leak which sealed on its own and was self-contained. The central decompression was then revised at L5-S1 with removal of the remaining lamina on both the right and left and extended to the lateral recesses bilaterally with partial facetectomies. The remaining lamina of L4 was freed from scar tissue and then removed with the use of high-speed luisito and Kerrison rongeurs. There was noted to be significant stenosis at the level of the L4 lamina. The entirety of the L4 lamina on both the right and left was removed and the dural sac appeared to be free of significant compression at that point. The decompression was extended to the lateral recess with partial facetectomy, the right and left. The rest of the facets on both the right and left at L3-4, L4-L5 and L5-S1 were left in place as we were not planning to instrument at this time due to the concern for infection. In addition, it was elected to avoid a discectomy at this time as there was concern for infection dorsal to the dura sac and I would not want this tracked into the disc space should it be infection. The wound was thoroughly irrigated throughout the entire procedure but again with 1 L of normal saline laden with gentamicin at the end of the procedure. Hemostasis was achieved. A small piece of DuraGen was placed on the right side over the small dural leak. DuraSeal was then applied. A deep drain was placed below the fascia. The fascia was then closed with #1 PDS sutures. Subcutaneous tissue was then closed with 2-0 PDS sutures and skin closed with 2- 0 nylon sutures. Sterile dressings were applied. Patient was transferred from the operating room table onto a stretcher. Patient was then awoken from general anesthesia without complication. It should be noted the patient remained hemodynamically stable throughout the entire procedure. It should also be noted that there was difficulty obtaining baseline neuromonitoring, however, there were no appreciable adverse events throughout the procedure. Disposition: Patient will remain at bed rest with head of bed flat for at least 48 and possibly 72 hours for his small dural tear. Hemovac will be to gravity only, no suction. Will monitor intraoperative cultures and ask infectious disease to help with treatment. Jessica Stubbs MD Aug 23, 2017 07:47 <Electronically signed by Jessica Stubbs MD> 08/23/17 1311 A/P Problem List: (1) Lumbar post-laminectomy syndrome ICD Code: M96.1 - Postlaminectomy syndrome, not elsewhere classified (2) Lumbar spinal stenosis ICD Code: M48.061 - Spinal stenosis, lumbar region without neurogenic claudication Status: Chronic (3) HTN (hypertension) ICD Code: I10 - Essential (primary) hypertension Status: Chronic (4) History of gout ICD Code: Z87.39 - Personal history of other diseases of the musculoskeletal system and connective tissue Status: Chronic (5) S/P lumbar laminectomy ICD Code: Z98.890 - Other specified postprocedural states Assessment and Plan Acute Renal Insufficiency Etilogy is unclear, most likely vancomycin Creatinine is showing downward trend, now on Daptomycin, will continue to follow Left renal complex mass, outpatient follow up recommended Appreciate Nephrology following Revision bilateral L3,4,5,S1 laminectomies Surgery performed 08/22/17 PT working with him Confusion More clear today after stopping Flexeril Appreciate Psych Evaluation h/o Hypotension History of hypertension Stable, continue Coreg Midodrine provided PRN Parameters placed on lisinopril and triamterene/hydrochlorothiazide 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 Surgery following Continue Daptomycin IV Gout Continue allopurinol DVT prophylaxis Anticoagulation at discretion of surgeon Discharge Planning Considering inpatient rehab vs. SNF given IV Daptomycin and slow improvement in renal function Problem Qualifiers (1) HTN (hypertension): Qualified Codes: I10 - Essential (primary) hypertension Eduin Burris MD Sep 09, 2017 15:06
[2017-09-09] MEDS: DAPTOmycin INJ 1,000 MG in SODIUM CHLORIDE 0.9% INJ 100 ML IV SCH (15:32)
[2017-09-09 16:00] VITALS: BP 104/62; PULSE 75; RESP 20; TEMP 98.5; O2SAT 91
[2017-09-09 16:39] LABS: BICARBONATE 21.5 MEQ/L (21.0-32.0); CALCIUM 8.4 MG/DL (8.5-10.1); CREATININE 2.27 MG/DL (0.60-1.30)
[2017-09-09 20:10] VITALS: BP 148/87; PULSE 86; RESP 18; TEMP 96.7; O2SAT 93
[2017-09-09] MEDS: ACETAMINOPHEN 325 MG TAB PO PRN (21:13)
[2017-09-09 23:50] VITALS: BP_SYST 112; BP_SYST 134; BP_DIAS 66; BP_DIAS 71; PULSE 63; PULSE 80; RESP 18; RESP 19; TEMP 97; TEMP 98; O2SAT 94; O2SAT 97
[2017-09-10 04:45] VITALS: BP 117/77; PULSE 68; RESP 18; TEMP 96.6; O2SAT 93
[2017-09-10] MEDS: ACETAMINOPHEN 325 MG TAB PO PRN (05:10)
[2017-09-10] MEDS: CIPROFLOXACIN 0.3% OPTH OINT 3.5 GM TUBO EACH EYE SCH ×3 (05:30→21:01)
[2017-09-10 08:00] VITALS: BP 109/70; PULSE 64; RESP 18; TEMP 97.6; O2SAT 94
[2017-09-10] MEDS: TAMSULOSIN HCL 0.4 MG CAP PO SCH (09:08)
[2017-09-10] MEDS: CARVEDILOL 6.25 MG TAB PO SCH ×2 (09:08→21:01)
[2017-09-10] MEDS: SODIUM BICARBONATE 650 MG TAB PO SCH ×2 (09:08→21:01)
[2017-09-10] MEDS: ALLOPURINOL 300 MG TAB PO SCH (09:09)
[2017-09-10] MEDS: SODIUM CHLORIDE 0.9% FLUSH 10 ML FLUSH IV FLUSH SCH ×2 (09:09→21:00)
[2017-09-10] MEDS: ACETAMINOPHEN/HYDROcodone 325 MG/10 MG TAB PO PRN ×3 (09:09→21:01)
[2017-09-10] MEDS: PANTOPRAZOLE SOD 20 MG DELAYED RELEASE TAB PO SCH (09:09)
[2017-09-10] MEDS: QUEtiapine FUMARATE 25 MG TAB PO SCH ×2 (09:09→11:51)
[2017-09-10] MEDS: MULTIVITAMIN TAB PO SCH (09:09)
[2017-09-10] MEDS: GABAPENTIN 400 MG CAP PO SCH ×2 (09:09→21:01)
--- NOTE | 2017-09-10 11:07 | HHI.PR ---
Subjective Remarks Patient seen and examined this morning. Afebrile vital signs stable. With the PT and was able to get into the chair for the first time. He is looking forward to doing more physical therapy. He understands again plan is to do long -term IV antibiotics and group home facility versus inpatient rehabilitation. His main complaint today is still his worsening memory, and is being evaluated by psychiatry. He denies any chest pain or shortness of breath. Denies any abdominal pain. He reported some loose stools previously but is now resolved. Objective Vitals Vital Signs Date Time Temp Pulse Resp B/P (MAP) Pulse Ox O2 Delivery O2 Flow Rate FiO2 09/10/17 10:18 18 09/10/17 08:00 97.6 64 18 109/70 (83) 94 09/10/17 04:45 96.6 68 18 117/77 (90) 93 09/09/17 23:50 98.0 80 19 112/71 (85) 94 09/09/17 20:10 96.7 86 18 148/87 (107) 93 09/09/17 16:00 98.5 75 20 104/62 (76) 91 09/09/17 15:10 09/09/17 12:00 97.6 86 18 144/89 (107) 92 09/09/17 11:09 I/O 09/09/17 09/09/17 09/09/17 09/10/17 09/10/17 09/10/17 07:00 15:00 23:00 07:00 15:00 23:00 Intake Total 0 ml 480 ml 340 ml 340 ml Output Total 100 ml 250 ml 2000 ml Balance -100 ml 230 ml 340 ml -1660 ml Intake Oral 0 ml 480 ml 240 ml 240 ml IV Total 100 ml 100 ml Output Urine Total 100 ml 250 ml 2000 ml Bladder Scan Volume Amount 467 ml 467 ml # Voids 2 # Bowel Movements 1 0 0 Result Diagram: 09/08/17 1333 09/09/17 1552 Imaging Last Impressions Skull X-Ray 09/07/17 0000 Signed Impressions: Service Date/Time: August 19:57 - CONCLUSION: Nothing seen to preclude MRI. Black Li MD Brain MRI 09/07/17 0000 Signed Impressions: Service Date/Time: August 20:32 - CONCLUSION: No mass, acute infarct or other acute intracranial abnormality. Black Li MD Abdomen X-Ray 09/07/17 0000 Signed Impressions: Service Date/Time: August 19:58 - CONCLUSION: No contraindications to MRI demonstrated. Black Li MD Renal Ultrasound 08/27/17 0000 Signed Impressions: Service Date/Time: Sunday, August 27, 2017 17:45 - CONCLUSION: 1. No evidence hydronephrosis. 2. Complex cystic or solid mass in the lower pole the right kidney and complexes at mass in the midpole of the right kidney. 3. Possible punctate nonobstructing calculus in the left kidney. Maicol Sandoval MD Chest X-Ray 08/27/17 0000 Signed Impressions: Service Date/Time: Sunday, August 27, 2017 13:32 - CONCLUSION: Left-sided PICC line tip at the cavoatrial junction. Maicol Sandoval MD Objective Remarks GENERAL: Well-nourished, well-developed patient. Sitting in chair. Brace around her abdomen. SKIN: Warm and dry. HEAD: Normocephalic. EYES: No scleral icterus. No injection or drainage. NECK: Supple, trachea midline. No JVD or lymphadenopathy. CARDIOVASCULAR: Regular rate and rhythm without murmurs, gallops, or rubs. RESPIRATORY: Breath sounds equal bilaterally. No accessory muscle use. GASTROINTESTINAL: Abdomen soft, non-tender, nondistended. BACK: Tender at surgical site. EXTREMITIES: no significant edema NEURO: Weak legs, 2/5-3/5 strength bilaterally Procedures cc: Jessica Stubbs MD Operative Report Date of Surgery: Aug 22, 2017 Preoperative Diagnosis: 1. L3-4, L4-5 lumbar stenosis with neurogenic claudication 2. L3-4, L4-5 and L5-S1 foraminal stenosis with bilateral lower extremity radiculopathy 3. 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 L3-4, L4-5 lumbar stenosis with neurogenic claudication 2. L3-4, L4-5 and L5-S1 foraminal stenosis with bilateral lower extremity radiculopathy 3. 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 Possible deep lumbar abscess Procedure: 1. Right revision laminectomies with partial facetectomies L3-4, L4-5 and L5-S1 2. Left revision laminectomies with partial facetectomies L3-4, L4-5 and L5-S1 3. Incision and drainage lumbar abscess Anesthesia: General Surgeon: Jessica Stubbs Manager Banking(s): Dr. Rafael Beaulieu Operation and Findings: EBL: 600 cc Complications: Small CSF leak, self-contained Specimens: Multiple cultures and gross pathology sent to lab for evaluation Indications for procedure: Patient is a 72-year-old gentleman who underwent bilateral hemilaminectomies at L3-S1 in February of last year by my partner Dr. Janak Beaulieu. Initially, he had significant improvement in his radicular symptoms, however, he developed a large fluid collection requiring drainage in March. Subsequently, he developed recurrent symptoms and early May with imaging demonstrating a recurrent disc herniation requiring revision bilateral hemilaminectomies at L3-L5 by Dr. Beaulieu. Postoperatively, he had significant improvement in his symptoms for only 2 weeks with recurrent radiculopathy and neurogenic medications symptoms. Repeat imaging at the beginning of July demonstrated a recurrent disc herniation at L4-5 along with significant central and foraminal stenosis at L3-4 and foraminal stenosis at L5-S1. Options of management were discussed with the patient. Surgical intervention in the form of revision decompression with posterior instrumentation and fusion from L3-S1 with transforaminal interbody devices was discussed with the patient. Risks including but not limited to: Infection, hardware malposition or failure, CSF leak which could be persistent, neurologic injury leading to possible weakness or paralysis, pseudoarthrosis, adjacent segment disease requiring revision surgery, possible need for further surgery, worsening or no improvement in symptoms, and other unforeseen complications were all discussed with the patient. At this time he did consent to the above- mentioned procedure. Description of procedure: Patient was brought back to the operating room and general anesthesia then ensued. A Martin catheter was placed. Neuromonitoring leads were placed. An arterial line was started by anesthesia. Patient was then flipped prone onto the operating room table with all bony prominences well padded. Patient was prepped and draped in standard sterile fashion. A timeout was performed to identify the correct patient, side, site and procedures to be performed. Patient received preoperative antibiotics in the form of Ancef and vancomycin. An incision was made through the prior midline incision and extended distally approximately 2 cm. Sharp and electrocautery dissection was carried through the subcutaneous tissue and through the fascia. The remaining spinous process of L3 and S1 were utilized as midline guidelines to allow elevation of the paraspinals and scar tissue from the midline. There is a significant amount of scar tissue between the caudal edge of L3 and the superior edge of S1. This was initially left in place as dissection over the more cranial aspect of L3 and the caudal aspect of S1 was performed. Deep retractors were placed. At this time the facets and transverse processes were identified to allow for pedicle screws to be placed. However, as the right L4- 5 facet was identified and exposed there appeared to be purulent material coming from the facet. This was cultured and sent to the lab for stat interpretation. While awaiting the results, I turned my attention to the scar tissue between the caudal aspect of L3 and the cranial aspect of S1. As I started to remove this tissue, I encountered a large pocket of purulent appearing material just dorsal to the dura. This was also cultured and gross pathology sent to the lab. At this point, the initial cultures came back with moderate white blood cells with significant inflammatory tissue. My partner, Dr. Rafael Beaulieu, was available at this time to assist. As this purulence and inflamed tissue was removed, it was decided to abort the hardware insertion portion of the case given the significant concern for infection. At this time, I turned my attention to the revision decompression portion of the case. There was extensive scar tissue from the caudal aspect of L3 to the cranial aspect of S1. The edges of the remaining lamina, pars and spinous processes were freed of scar tissue and the scar tissue mobilized. The central decompression was revised at L3-4 with removal of the remaining lamina on both the right and left and extended to the lateral recesses. As the lateral recess on the right L3-4 level was removed, there appeared to be a small dural leak which sealed on its own and was self-contained. The central decompression was then revised at L5-S1 with removal of the remaining lamina on both the right and left and extended to the lateral recesses bilaterally with partial facetectomies. The remaining lamina of L4 was freed from scar tissue and then removed with the use of high-speed luisito and Kerrison rongeurs. There was noted to be significant stenosis at the level of the L4 lamina. The entirety of the L4 lamina on both the right and left was removed and the dural sac appeared to be free of significant compression at that point. The decompression was extended to the lateral recess with partial facetectomy, the right and left. The rest of the facets on both the right and left at L3-4, L4-L5 and L5-S1 were left in place as we were not planning to instrument at this time due to the concern for infection. In addition, it was elected to avoid a discectomy at this time as there was concern for infection dorsal to the dura sac and I would not want this tracked into the disc space should it be infection. The wound was thoroughly irrigated throughout the entire procedure but again with 1 L of normal saline laden with gentamicin at the end of the procedure. Hemostasis was achieved. A small piece of DuraGen was placed on the right side over the small dural leak. DuraSeal was then applied. A deep drain was placed below the fascia. The fascia was then closed with #1 PDS sutures. Subcutaneous tissue was then closed with 2-0 PDS sutures and skin closed with 2- 0 nylon sutures. Sterile dressings were applied. Patient was transferred from the operating room table onto a stretcher. Patient was then awoken from general anesthesia without complication. It should be noted the patient remained hemodynamically stable throughout the entire procedure. It should also be noted that there was difficulty obtaining baseline neuromonitoring, however, there were no appreciable adverse events throughout the procedure. Disposition: Patient will remain at bed rest with head of bed flat for at least 48 and possibly 72 hours for his small dural tear. Hemovac will be to gravity only, no suction. Will monitor intraoperative cultures and ask infectious disease to help with treatment. Jessica Stubbs MD Aug 23, 2017 07:47 <Electronically signed by Jessica Stubbs MD> 08/23/17 1311 Medications and IVs Current Medications Medications (Trade) Dose Ordered Sig/Samia Route Start Time Stop Time Status Last Admin (NS Flush) 2 ml UNSCH PRN IV FLUSH 08/22/17 17:00 (NS Flush) 2 ml BID IV FLUSH 08/22/17 21:00 09/10/17 09:09 (Zofran Inj) 4 mg Q6H PRN IV PUSH 08/22/17 17:00 09/01/17 13:29 (Dulcolax Supp) 10 mg DAILY PRN RECTAL 08/22/17 17:00 08/26/17 08:56 (Fleets Enema (Adult)) 133 ml DAILY PRN MD 08/22/17 17:00 (Zyloprim) 300 mg DAILY PO 08/23/17 09:00 09/10/17 09:09 (Coreg) 6.25 mg BID PO 08/23/17 09:00 09/10/17 09:08 (Protonix) 20 mg DAILY PO 08/23/17 09:00 09/10/17 09:09 (Theragran) 1 tab DAILY PO 08/23/17 09:00 09/10/17 09:09 (Flexeril) 10 mg Q8H PRN PO 08/23/17 07:45 Future Hold 09/07/17 10:05 (Morphine Inj) 2 mg Q4H PRN IV PUSH 08/24/17 08:00 (Flint 10-325 Mg) 1 tab Q4H PRN PO 08/24/17 08:00 09/10/17 09:09 (Ciloxan 0.3% Opth Oint) 1 applic Q8HR EACH EYE 08/25/17 16:00 09/10/17 05:30 (Milk Of Magnesia Liq) 30 ml Q12HR PO 08/25/17 21:00 Future Hold 09/03/17 20:27 (Proamatine) 5 mg TID@,12,17 PRN PO 08/26/17 09:00 (Neurontin) 400 mg BID PO 08/28/17 09:00 09/10/17 09:09 (Sodium Bicarbonate) 650 mg Q12HR PO 08/29/17 09:45 09/10/17 09:08 (Drisdol) 50,000 units Q7D PO 08/29/17 18:00 09/05/17 17:38 (Flomax) 0.4 mg DAILY PO 09/01/17 09:00 09/10/17 09:08 (Benadryl) 25 mg Q4H PRN PO 09/03/17 08:15 (SEROquel) 25 mg BID@09,12 PO 09/09/17 09:00 09/10/17 09:09 (Ramandeep-Colace) 1 tab BID PRN PO 09/09/17 10:45 Daptomycin 1000 mg/Sodium Chloride 100 ml @ 200 mls/hr Q24H IV 09/10/17 16:00 A/P Problem List: (1) Lumbar post-laminectomy syndrome ICD Code: M96.1 - Postlaminectomy syndrome, not elsewhere classified (2) Lumbar spinal stenosis ICD Code: M48.061 - Spinal stenosis, lumbar region without neurogenic claudication Status: Chronic (3) HTN (hypertension) ICD Code: I10 - Essential (primary) hypertension Status: Chronic (4) History of gout ICD Code: Z87.39 - Personal history of other diseases of the musculoskeletal system and connective tissue Status: Chronic (5) S/P lumbar laminectomy ICD Code: Z98.890 - Other specified postprocedural states Assessment and Plan Acute Renal Insufficiency Etilogy is unclear, most likely vancomycin Creatinine is showing downward trend, now on Daptomycin, will continue to follow Left renal complex mass, outpatient follow up recommended Appreciate Nephrology following Revision bilateral L3,4,5,S1 laminectomies Surgery performed 08/22/17 PT working with him Confusion More clear today after stopping Flexeril Appreciate Psych Evaluation h/o Hypotension History of hypertension Stable, continue Coreg Midodrine provided PRN Parameters placed on lisinopril and triamterene/hydrochlorothiazide 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 Surgery following Continue Daptomycin IV Gout Continue allopurinol DVT prophylaxis Anticoagulation at discretion of surgeon Discharge Planning Considering inpatient rehab vs. SNF given IV Daptomycin and slow improvement in renal function Problem Qualifiers (1) HTN (hypertension): Qualified Codes: I10 - Essential (primary) hypertension Lowell Nelson MD, R3 Sep 10, 2017 11:07
[2017-09-10 11:30] VITALS: BP 102/62; PULSE 67; RESP 18; TEMP 97.9; O2SAT 92
--- NOTE | 2017-09-10 12:30 | PD.ORT.PN ---
Subjective Subjective Remarks Patient resting comfortably. Confusion improved today although not completely resolved. States he was able to get up to chair today with mild back pain Objective Vitals Vital Signs Date Time Temp Pulse Resp B/P (MAP) Pulse Ox O2 Delivery O2 Flow Rate FiO2 09/10/17 11:30 97.9 67 18 102/62 (75) 92 09/10/17 10:18 18 09/10/17 08:00 97.6 64 18 109/70 (83) 94 09/10/17 04:45 96.6 68 18 117/77 (90) 93 09/09/17 23:50 98.0 80 19 112/71 (85) 94 09/09/17 20:10 96.7 86 18 148/87 (107) 93 09/09/17 16:00 98.5 75 20 104/62 (76) 91 09/09/17 15:10 I/O 09/09/17 09/09/17 09/09/17 09/10/17 09/10/17 09/10/17 07:00 15:00 23:00 07:00 15:00 23:00 Intake Total 0 ml 480 ml 340 ml 340 ml Output Total 100 ml 250 ml 2000 ml Balance -100 ml 230 ml 340 ml -1660 ml Intake Oral 0 ml 480 ml 240 ml 240 ml IV Total 100 ml 100 ml Output Urine Total 100 ml 250 ml 2000 ml Bladder Scan Volume Amount 467 ml 467 ml # Voids 2 # Bowel Movements 1 0 0 Result Diagram: 09/08/17 1333 09/09/17 2782 Objective Remarks Awake, alert, no acute distress. Mildly confused at times but does answer more appropriately today. Nonlabored respirations Bilateral lower extremities: grossly neuro intact. Sensation intact. Brisk cap refill Assessment & Plan Assessment and Plan 72-year-old man now postop day 18 status post revision bilateral L3 4, L4 5 and L5-S1 laminectomies. With purulence Intra-Op and therefore hardware placement was aborted and only decompression performed. Small intraoperative dural leak. 1. Continue Patient mobilizing out of bed 1-2 times daily with brace on. 2. Patient confused -mildly improved. Psych and neurology has seen the patient. Limited narcotics and Flexeril. 3. chemical DVT prophylaxis was contra-indicated at this time per med, cont with SCDs (applied) and mobilization 3. ID managing IV abx. Plan to discharge on dapto but awaiting Cr levels to decide dosing. 4. nephrology following renal insufficiency. Creatinine trending down 5. discharge planning for rehabilitation once medically cleared and mental status improves 6. Hgb improved. Stable currently Jessica Stubbs MD Sep 10, 2017 12:30
[2017-09-10] MEDS: DAPTOmycin INJ 1,000 MG in SODIUM CHLORIDE 0.9% INJ 100 ML IV SCH (15:31)
[2017-09-10 16:00] VITALS: BP 100/62; PULSE 68; RESP 18; TEMP 97.6; O2SAT 92
[2017-09-10 19:15] VITALS: BP 114/67; PULSE 75; RESP 18; TEMP 96.1; O2SAT 93
[2017-09-10 23:20] VITALS: BP 97/58; PULSE 76; RESP 18; TEMP 97.3; O2SAT 94
[2017-09-11] MEDS: CIPROFLOXACIN 0.3% OPTH OINT 3.5 GM TUBO EACH EYE SCH ×4 (05:34→20:50)
[2017-09-11 06:27] LABS: HEMATOCRIT 28.1 % (39.0-51.0); HEMOGLOBIN 9.4 GM/DL (13.0-17.0); MEAN CELL VOLUME 90.3 FL (80.0-100.0); MEAN CORPUSCULAR HGB CONC 33.2 % (32.0-36.0); MEAN PLATELET VOLUME 9.6 FL (7.0-11.0); PLATELET COUNT 337 TH/MM3 (150-450); RED BLOOD COUNT 3.12 MIL/MM3 (4.50-5.90); RED CELL DISTRIBUTION WIDTH 17.1 % (11.6-17.2); WHITE BLOOD COUNT 7.5 TH/MM3 (4.0-11.0)
[2017-09-11 06:51] LABS: BICARBONATE 22.8 MEQ/L (21.0-32.0); CALCIUM 8.9 MG/DL (8.5-10.1); CREATININE 2.35 MG/DL (0.60-1.30)
[2017-09-11 08:00] VITALS: BP 99/53; PULSE 73; RESP 18; TEMP 97.3; O2SAT 95
[2017-09-11] MEDS: CARVEDILOL 6.25 MG TAB PO SCH ×2 (09:00→20:47)
[2017-09-11] MEDS: ACETAMINOPHEN/HYDROcodone 325 MG/10 MG TAB PO PRN ×3 (10:18→20:47)
[2017-09-11] MEDS: PANTOPRAZOLE SOD 20 MG DELAYED RELEASE TAB PO SCH (10:18)
[2017-09-11] MEDS: SODIUM BICARBONATE 650 MG TAB PO SCH ×2 (10:18→20:46)
[2017-09-11] MEDS: GABAPENTIN 400 MG CAP PO SCH ×2 (10:18→20:47)
[2017-09-11] MEDS: TAMSULOSIN HCL 0.4 MG CAP PO SCH (10:18)
[2017-09-11] MEDS: MULTIVITAMIN TAB PO SCH (10:19)
[2017-09-11] MEDS: QUEtiapine FUMARATE 25 MG TAB PO SCH ×2 (10:19→12:39)
[2017-09-11] MEDS: ALLOPURINOL 300 MG TAB PO SCH (10:21)
[2017-09-11] MEDS: SODIUM CHLORIDE 0.9% FLUSH 10 ML FLUSH IV FLUSH SCH ×2 (10:22→20:49)
[2017-09-11 12:40] VITALS: BP 112/79; PULSE 81; RESP 19; TEMP 98.3; O2SAT 97
--- NOTE | 2017-09-11 14:30 | HHI.PR ---
Subjective Remarks Seen earlier today. In the chair, says he feels very tired. at bedside. The patient denies any chest pain or fever no chills. Still on IV daptomycin. No chest pain, cough nausea vomiting or diarrhea. He has constipation milk of magnesia today. Objective Vitals Vital Signs Date Time Temp Pulse Resp B/P (MAP) Pulse Ox O2 Delivery O2 Flow Rate FiO2 09/11/17 12:40 98.3 81 19 112/79 (90) 97 09/11/17 08:00 97.3 73 18 99/53 (68) 95 09/10/17 23:20 97.3 76 18 97/58 (71) 94 09/10/17 19:15 96.1 75 18 114/67 (83) 93 09/10/17 16:00 97.6 68 18 100/62 (75) 92 I/O 09/10/17 09/10/17 09/10/17 09/11/17 09/11/17 09/11/17 06:59 14:59 22:59 06:59 14:59 22:59 Intake Total 240 ml 580 ml 580 ml 480 ml Output Total 2000 ml 500 ml 450 ml 400 ml Balance -1760 ml 80 ml 130 ml 80 ml Intake Oral 240 ml 480 ml 480 ml 480 ml IV Total 100 ml 100 ml Output Urine Total 2000 ml 500 ml 450 ml 400 ml # Bowel Movements 0 0 0 0 Result Diagram: 09/11/1745209/11/17 045 Imaging Last Impressions Skull X-Ray 09/07/17 0000 Signed Impressions: Service Date/Time: August 19:57 - CONCLUSION: Nothing seen to preclude MRI. Black Li MD Brain MRI 09/07/17 0000 Signed Impressions: Service Date/Time: August 20:32 - CONCLUSION: No mass, acute infarct or other acute intracranial abnormality. Black Li MD Abdomen X-Ray 09/07/17 0000 Signed Impressions: Service Date/Time: August 19:58 - CONCLUSION: No contraindications to MRI demonstrated. Black Li MD Renal Ultrasound 08/27/17 0000 Signed Impressions: Service Date/Time: Sunday, August 27, 2017 17:45 - CONCLUSION: 1. No evidence hydronephrosis. 2. Complex cystic or solid mass in the lower pole the right kidney and complexes at mass in the midpole of the right kidney. 3. Possible punctate nonobstructing calculus in the left kidney. Maicol Sandoval MD Chest X-Ray 08/27/17 0000 Signed Impressions: Service Date/Time: Sunday, August 27, 2017 13:32 - CONCLUSION: Left-sided PICC line tip at the cavoatrial junction. Maicol Sandoval MD Objective Remarks GENERAL: Well-nourished, well-developed patient. Sitting in chair. Brace around her abdomen. NECK: Supple, trachea midline. No JVD or lymphadenopathy. CARDIOVASCULAR: Regular rate and rhythm without murmurs, gallops, or rubs. RESPIRATORY: Breath sounds equal bilaterally. No accessory muscle use. GASTROINTESTINAL: Abdomen soft, non-tender, nondistended. BACK: Tender at surgical site. EXTREMITIES: no significant edema NEURO: Weak legs, 2/5-3/5 strength bilaterally Procedures cc: Jessica Stubbs MD Operative Report Date of Surgery: Aug 22, 2017 Preoperative Diagnosis: 1. L3-4, L4-5 lumbar stenosis with neurogenic claudication 2. L3-4, L4-5 and L5-S1 foraminal stenosis with bilateral lower extremity radiculopathy 3. 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 L3-4, L4-5 lumbar stenosis with neurogenic claudication 2. L3-4, L4-5 and L5-S1 foraminal stenosis with bilateral lower extremity radiculopathy 3. 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 Possible deep lumbar abscess Procedure: 1. Right revision laminectomies with partial facetectomies L3-4, L4-5 and L5-S1 2. Left revision laminectomies with partial facetectomies L3-4, L4-5 and L5-S1 3. Incision and drainage lumbar abscess Anesthesia: General Surgeon: Jessica Stubbs Manager Home(s): Dr. Rafael Beaulieu Operation and Findings: EBL: 600 cc Complications: Small CSF leak, self-contained Specimens: Multiple cultures and gross pathology sent to lab for evaluation Indications for procedure: Patient is a 72-year-old gentleman who underwent bilateral hemilaminectomies at L3-S1 in February of last year by my partner Dr. Janak Beaulieu. Initially, he had significant improvement in his radicular symptoms, however, he developed a large fluid collection requiring drainage in March. Subsequently, he developed recurrent symptoms and early May with imaging demonstrating a recurrent disc herniation requiring revision bilateral hemilaminectomies at L3-L5 by Dr. Beaulieu. Postoperatively, he had significant improvement in his symptoms for only 2 weeks with recurrent radiculopathy and neurogenic medications symptoms. Repeat imaging at the beginning of July demonstrated a recurrent disc herniation at L4-5 along with significant central and foraminal stenosis at L3-4 and foraminal stenosis at L5-S1. Options of management were discussed with the patient. Surgical intervention in the form of revision decompression with posterior instrumentation and fusion from L3-S1 with transforaminal interbody devices was discussed with the patient. Risks including but not limited to: Infection, hardware malposition or failure, CSF leak which could be persistent, neurologic injury leading to possible weakness or paralysis, pseudoarthrosis, adjacent segment disease requiring revision surgery, possible need for further surgery, worsening or no improvement in symptoms, and other unforeseen complications were all discussed with the patient. At this time he did consent to the above- mentioned procedure. Description of procedure: Patient was brought back to the operating room and general anesthesia then ensued. A Martin catheter was placed. Neuromonitoring leads were placed. An arterial line was started by anesthesia. Patient was then flipped prone onto the operating room table with all bony prominences well padded. Patient was prepped and draped in standard sterile fashion. A timeout was performed to identify the correct patient, side, site and procedures to be performed. Patient received preoperative antibiotics in the form of Ancef and vancomycin. An incision was made through the prior midline incision and extended distally approximately 2 cm. Sharp and electrocautery dissection was carried through the subcutaneous tissue and through the fascia. The remaining spinous process of L3 and S1 were utilized as midline guidelines to allow elevation of the paraspinals and scar tissue from the midline. There is a significant amount of scar tissue between the caudal edge of L3 and the superior edge of S1. This was initially left in place as dissection over the more cranial aspect of L3 and the caudal aspect of S1 was performed. Deep retractors were placed. At this time the facets and transverse processes were identified to allow for pedicle screws to be placed. However, as the right L4- 5 facet was identified and exposed there appeared to be purulent material coming from the facet. This was cultured and sent to the lab for stat interpretation. While awaiting the results, I turned my attention to the scar tissue between the caudal aspect of L3 and the cranial aspect of S1. As I started to remove this tissue, I encountered a large pocket of purulent appearing material just dorsal to the dura. This was also cultured and gross pathology sent to the lab. At this point, the initial cultures came back with moderate white blood cells with significant inflammatory tissue. My partner, Dr. Rafael Beaulieu, was available at this time to assist. As this purulence and inflamed tissue was removed, it was decided to abort the hardware insertion portion of the case given the significant concern for infection. At this time, I turned my attention to the revision decompression portion of the case. There was extensive scar tissue from the caudal aspect of L3 to the cranial aspect of S1. The edges of the remaining lamina, pars and spinous processes were freed of scar tissue and the scar tissue mobilized. The central decompression was revised at L3-4 with removal of the remaining lamina on both the right and left and extended to the lateral recesses. As the lateral recess on the right L3-4 level was removed, there appeared to be a small dural leak which sealed on its own and was self-contained. The central decompression was then revised at L5-S1 with removal of the remaining lamina on both the right and left and extended to the lateral recesses bilaterally with partial facetectomies. The remaining lamina of L4 was freed from scar tissue and then removed with the use of high-speed luisito and Kerrison rongeurs. There was noted to be significant stenosis at the level of the L4 lamina. The entirety of the L4 lamina on both the right and left was removed and the dural sac appeared to be free of significant compression at that point. The decompression was extended to the lateral recess with partial facetectomy, the right and left. The rest of the facets on both the right and left at L3-4, L4-L5 and L5-S1 were left in place as we were not planning to instrument at this time due to the concern for infection. In addition, it was elected to avoid a discectomy at this time as there was concern for infection dorsal to the dura sac and I would not want this tracked into the disc space should it be infection. The wound was thoroughly irrigated throughout the entire procedure but again with 1 L of normal saline laden with gentamicin at the end of the procedure. Hemostasis was achieved. A small piece of DuraGen was placed on the right side over the small dural leak. DuraSeal was then applied. A deep drain was placed below the fascia. The fascia was then closed with #1 PDS sutures. Subcutaneous tissue was then closed with 2-0 PDS sutures and skin closed with 2- 0 nylon sutures. Sterile dressings were applied. Patient was transferred from the operating room table onto a stretcher. Patient was then awoken from general anesthesia without complication. It should be noted the patient remained hemodynamically stable throughout the entire procedure. It should also be noted that there was difficulty obtaining baseline neuromonitoring, however, there were no appreciable adverse events throughout the procedure. Disposition: Patient will remain at bed rest with head of bed flat for at least 48 and possibly 72 hours for his small dural tear. Hemovac will be to gravity only, no suction. Will monitor intraoperative cultures and ask infectious disease to help with treatment. Jessica Stubbs MD Aug 23, 2017 07:47 <Electronically signed by Jessica Stubbs MD> 08/23/17 1311 A/P Problem List: (1) Lumbar post-laminectomy syndrome ICD Code: M96.1 - Postlaminectomy syndrome, not elsewhere classified (2) Lumbar spinal stenosis ICD Code: M48.061 - Spinal stenosis, lumbar region without neurogenic claudication Status: Chronic (3) HTN (hypertension) ICD Code: I10 - Essential (primary) hypertension Status: Chronic (4) History of gout ICD Code: Z87.39 - Personal history of other diseases of the musculoskeletal system and connective tissue Status: Chronic (5) S/P lumbar laminectomy ICD Code: Z98.890 - Other specified postprocedural states Assessment and Plan Acute Renal Insufficiency Etiology is unclear, most likely vancomycin Creatinine is showing downward trend, now on Daptomycin, will continue to follow Left renal complex mass, outpatient follow up recommended Appreciate Nephrology following Revision bilateral L3,4,5,S1 laminectomies Surgery performed 08/22/17 PT working with him Confusion More clear today after stopping Flexeril Appreciate Psych Evaluation h/o Hypotension History of hypertension Stable, continue Coreg Midodrine provided PRN Parameters placed on lisinopril and triamterene/hydrochlorothiazide 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 Surgery following Continue Daptomycin IV Gout Continue allopurinol DVT prophylaxis Anticoagulation at discretion of surgeon Discharge Planning Considering inpatient rehab vs. SNF given IV Daptomycin and slow improvement in renal function CM ff for DC plan PT/OT eval Problem Qualifiers (1) HTN (hypertension): Qualified Codes: I10 - Essential (primary) hypertension Aracely Silva MD Sep 11, 2017 14:30
[2017-09-11 16:00] VITALS: BP 110/64; PULSE 77; RESP 18; TEMP 98.1; O2SAT 99
[2017-09-11] MEDS: DAPTOmycin INJ 1,000 MG in SODIUM CHLORIDE 0.9% INJ 100 ML IV SCH (18:33)
[2017-09-11 20:55] VITALS: BP 116/69; PULSE 69; RESP 18; TEMP 97; O2SAT 94
[2017-09-12 00:30] VITALS: BP 100/57; PULSE 62; RESP 18; TEMP 96.1; O2SAT 94
[2017-09-12] MEDS: CIPROFLOXACIN 0.3% OPTH OINT 3.5 GM TUBO EACH EYE SCH ×2 (05:04→13:10)
[2017-09-12 08:00] VITALS: BP 140/87; PULSE 66; RESP 17; TEMP 96.7; O2SAT 95
--- NOTE | 2017-09-12 08:04 | HHI.PR ---
Subjective Remarks The patient is feeling better . Tolerates pT and is awaiting for rehab. denies any pain at this time.No n/v/. Complaints of constipation. receives laxatives. No fever or chills. Objective Vitals Vital Signs Date Time Temp Pulse Resp B/P (MAP) Pulse Ox O2 Delivery O2 Flow Rate FiO2 09/12/17 00:30 96.1 62 18 100/57 (71) 94 09/11/17 21:48 20 09/11/17 20:55 97.0 69 18 116/69 (85) 94 09/11/17 16:00 98.1 77 18 110/64 (79) 99 09/11/17 12:40 98.3 81 19 112/79 (90) 97 I/O 09/11/17 09/11/17 09/11/17 09/12/17 09/12/17 09/12/17 07:00 15:00 23:00 07:00 15:00 23:00 Intake Total 480 ml 460 ml 120 ml Output Total 400 ml 1000 ml 400 ml 400 ml Balance 80 ml -1000 ml 60 ml -280 ml Intake Oral 480 ml 360 ml 120 ml IV Total 100 ml Output Urine Total 400 ml 1000 ml 400 ml 400 ml # Bowel Movements 0 0 0 Result Diagram: 09/11/1745209/11/17452 Imaging Last Impressions Skull X-Ray 09/07/17 0000 Signed Impressions: Service Date/Time: August 19:57 - CONCLUSION: Nothing seen to preclude MRI. Black Li MD Brain MRI 09/07/17 0000 Signed Impressions: Service Date/Time: August 20:32 - CONCLUSION: No mass, acute infarct or other acute intracranial abnormality. Black Li MD Abdomen X-Ray 09/07/17 0000 Signed Impressions: Service Date/Time: August 19:58 - CONCLUSION: No contraindications to MRI demonstrated. Black Li MD Renal Ultrasound 08/27/17 0000 Signed Impressions: Service Date/Time: Sunday, August 27, 2017 17:45 - CONCLUSION: 1. No evidence hydronephrosis. 2. Complex cystic or solid mass in the lower pole the right kidney and complexes at mass in the midpole of the right kidney. 3. Possible punctate nonobstructing calculus in the left kidney. Maicol Sandoval MD Chest X-Ray 08/27/17 0000 Signed Impressions: Service Date/Time: Sunday, August 27, 2017 13:32 - CONCLUSION: Left-sided PICC line tip at the cavoatrial junction. Maicol Sandoval MD Objective Remarks GENERAL: Well-nourished, well-developed patient. Sitting in chair. Brace around her abdomen. NECK: Supple, trachea midline. No JVD or lymphadenopathy. CARDIOVASCULAR: Regular rate and rhythm without murmurs, gallops, or rubs. RESPIRATORY: Breath sounds equal bilaterally. No accessory muscle use. GASTROINTESTINAL: Abdomen soft, non-tender, nondistended. BACK: Tender at surgical site. EXTREMITIES: no significant edema NEURO: Weak legs, 2/5-3/5 strength bilaterally Procedures cc: Jessica Stubbs MD Operative Report Date of Surgery: Aug 22, 2017 Preoperative Diagnosis: 1. L3-4, L4-5 lumbar stenosis with neurogenic claudication 2. L3-4, L4-5 and L5-S1 foraminal stenosis with bilateral lower extremity radiculopathy 3. 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 L3-4, L4-5 lumbar stenosis with neurogenic claudication 2. L3-4, L4-5 and L5-S1 foraminal stenosis with bilateral lower extremity radiculopathy 3. 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 Possible deep lumbar abscess Procedure: 1. Right revision laminectomies with partial facetectomies L3-4, L4-5 and L5-S1 2. Left revision laminectomies with partial facetectomies L3-4, L4-5 and L5-S1 3. Incision and drainage lumbar abscess Anesthesia: General Surgeon: Jessica Stubbs Professor Of Musicology(s): Dr. Rafael Beaulieu Operation and Findings: EBL: 600 cc Complications: Small CSF leak, self-contained Specimens: Multiple cultures and gross pathology sent to lab for evaluation Indications for procedure: Patient is a 72-year-old gentleman who underwent bilateral hemilaminectomies at L3-S1 in February of last year by my partner Dr. Janak Beaulieu. Initially, he had significant improvement in his radicular symptoms, however, he developed a large fluid collection requiring drainage in March. Subsequently, he developed recurrent symptoms and early May with imaging demonstrating a recurrent disc herniation requiring revision bilateral hemilaminectomies at L3-L5 by Dr. Beaulieu. Postoperatively, he had significant improvement in his symptoms for only 2 weeks with recurrent radiculopathy and neurogenic medications symptoms. Repeat imaging at the beginning of July demonstrated a recurrent disc herniation at L4-5 along with significant central and foraminal stenosis at L3-4 and foraminal stenosis at L5-S1. Options of management were discussed with the patient. Surgical intervention in the form of revision decompression with posterior instrumentation and fusion from L3-S1 with transforaminal interbody devices was discussed with the patient. Risks including but not limited to: Infection, hardware malposition or failure, CSF leak which could be persistent, neurologic injury leading to possible weakness or paralysis, pseudoarthrosis, adjacent segment disease requiring revision surgery, possible need for further surgery, worsening or no improvement in symptoms, and other unforeseen complications were all discussed with the patient. At this time he did consent to the above- mentioned procedure. Description of procedure: Patient was brought back to the operating room and general anesthesia then ensued. A Martin catheter was placed. Neuromonitoring leads were placed. An arterial line was started by anesthesia. Patient was then flipped prone onto the operating room table with all bony prominences well padded. Patient was prepped and draped in standard sterile fashion. A timeout was performed to identify the correct patient, side, site and procedures to be performed. Patient received preoperative antibiotics in the form of Ancef and vancomycin. An incision was made through the prior midline incision and extended distally approximately 2 cm. Sharp and electrocautery dissection was carried through the subcutaneous tissue and through the fascia. The remaining spinous process of L3 and S1 were utilized as midline guidelines to allow elevation of the paraspinals and scar tissue from the midline. There is a significant amount of scar tissue between the caudal edge of L3 and the superior edge of S1. This was initially left in place as dissection over the more cranial aspect of L3 and the caudal aspect of S1 was performed. Deep retractors were placed. At this time the facets and transverse processes were identified to allow for pedicle screws to be placed. However, as the right L4- 5 facet was identified and exposed there appeared to be purulent material coming from the facet. This was cultured and sent to the lab for stat interpretation. While awaiting the results, I turned my attention to the scar tissue between the caudal aspect of L3 and the cranial aspect of S1. As I started to remove this tissue, I encountered a large pocket of purulent appearing material just dorsal to the dura. This was also cultured and gross pathology sent to the lab. At this point, the initial cultures came back with moderate white blood cells with significant inflammatory tissue. My partner, Dr. Rafael Beaulieu, was available at this time to assist. As this purulence and inflamed tissue was removed, it was decided to abort the hardware insertion portion of the case given the significant concern for infection. At this time, I turned my attention to the revision decompression portion of the case. There was extensive scar tissue from the caudal aspect of L3 to the cranial aspect of S1. The edges of the remaining lamina, pars and spinous processes were freed of scar tissue and the scar tissue mobilized. The central decompression was revised at L3-4 with removal of the remaining lamina on both the right and left and extended to the lateral recesses. As the lateral recess on the right L3-4 level was removed, there appeared to be a small dural leak which sealed on its own and was self-contained. The central decompression was then revised at L5-S1 with removal of the remaining lamina on both the right and left and extended to the lateral recesses bilaterally with partial facetectomies. The remaining lamina of L4 was freed from scar tissue and then removed with the use of high-speed luisito and Kerrison rongeurs. There was noted to be significant stenosis at the level of the L4 lamina. The entirety of the L4 lamina on both the right and left was removed and the dural sac appeared to be free of significant compression at that point. The decompression was extended to the lateral recess with partial facetectomy, the right and left. The rest of the facets on both the right and left at L3-4, L4-L5 and L5-S1 were left in place as we were not planning to instrument at this time due to the concern for infection. In addition, it was elected to avoid a discectomy at this time as there was concern for infection dorsal to the dura sac and I would not want this tracked into the disc space should it be infection. The wound was thoroughly irrigated throughout the entire procedure but again with 1 L of normal saline laden with gentamicin at the end of the procedure. Hemostasis was achieved. A small piece of DuraGen was placed on the right side over the small dural leak. DuraSeal was then applied. A deep drain was placed below the fascia. The fascia was then closed with #1 PDS sutures. Subcutaneous tissue was then closed with 2-0 PDS sutures and skin closed with 2- 0 nylon sutures. Sterile dressings were applied. Patient was transferred from the operating room table onto a stretcher. Patient was then awoken from general anesthesia without complication. It should be noted the patient remained hemodynamically stable throughout the entire procedure. It should also be noted that there was difficulty obtaining baseline neuromonitoring, however, there were no appreciable adverse events throughout the procedure. Disposition: Patient will remain at bed rest with head of bed flat for at least 48 and possibly 72 hours for his small dural tear. Hemovac will be to gravity only, no suction. Will monitor intraoperative cultures and ask infectious disease to help with treatment. Jessica Stubbs MD Aug 23, 2017 07:47 <Electronically signed by Jessica Stubbs MD> 08/23/17 1311 A/P Problem List: (1) Lumbar post-laminectomy syndrome ICD Code: M96.1 - Postlaminectomy syndrome, not elsewhere classified Status: Acute (2) Lumbar spinal stenosis ICD Code: M48.061 - Spinal stenosis, lumbar region without neurogenic claudication Status: Chronic (3) HTN (hypertension) ICD Code: I10 - Essential (primary) hypertension Status: Chronic (4) History of gout ICD Code: Z87.39 - Personal history of other diseases of the musculoskeletal system and connective tissue Status: Chronic (5) S/P lumbar laminectomy ICD Code: Z98.890 - Other specified postprocedural states Assessment and Plan Acute Renal Insufficiency Etiology is unclear, most likely vancomycin Creatinine is showing downward trend, now on Daptomycin, will continue to follow Left renal complex mass, outpatient follow up recommended Appreciate Nephrology following Revision bilateral L3,4,5,S1 laminectomies Surgery performed 08/22/17 PT working with him Confusion More clear today after stopping Flexeril Appreciate Psych Evaluation h/o Hypotension History of hypertension Stable, continue Coreg Midodrine provided PRN Parameters placed on lisinopril and triamterene/hydrochlorothiazide 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 Surgery following Continue Daptomycin IV Gout Continue allopurinol DVT prophylaxis Anticoagulation at discretion of surgeon Discharge Planning Plan for discharge to inpatient rehab. Patient is improving. To have IV antibiotics daptomycin continued rehab. Appreciate infectious disease specialist recommendations. Patient needs further imaging in 1 or 2 weeks per infectious disease. CM ff for DC plan PT/OT eval Problem Qualifiers (1) HTN (hypertension): Qualified Codes: I10 - Essential (primary) hypertension Aracely Silva MD Sep 12, 2017 08:04
[2017-09-12] MEDS: QUEtiapine FUMARATE 25 MG TAB PO SCH ×2 (08:24→12:00)
[2017-09-12] MEDS: PANTOPRAZOLE SOD 20 MG DELAYED RELEASE TAB PO SCH (08:24)
[2017-09-12] MEDS: ALLOPURINOL 300 MG TAB PO SCH (08:24)
[2017-09-12] MEDS: TAMSULOSIN HCL 0.4 MG CAP PO SCH (08:24)
[2017-09-12] MEDS: CARVEDILOL 6.25 MG TAB PO SCH (08:24)
[2017-09-12] MEDS: ACETAMINOPHEN/HYDROcodone 325 MG/10 MG TAB PO PRN ×2 (08:24→12:26)
[2017-09-12] MEDS: GABAPENTIN 400 MG CAP PO SCH (08:25)
[2017-09-12] MEDS: SODIUM BICARBONATE 650 MG TAB PO SCH (08:25)
[2017-09-12] MEDS: MULTIVITAMIN TAB PO SCH (08:25)
[2017-09-12] MEDS: SODIUM CHLORIDE 0.9% FLUSH 10 ML FLUSH IV FLUSH SCH (08:25)
--- NOTE | 2017-09-12 10:22 | PD.ORT.PN ---
Subjective Subjective Remarks Patient resting comfortably. Reports pain well-controlled currently. Objective Vitals Vital Signs Date Time Temp Pulse Resp B/P (MAP) Pulse Ox O2 Delivery O2 Flow Rate FiO2 09/12/17 08:00 96.7 66 17 140/87 (104) 95 09/12/17 00:30 96.1 62 18 100/57 (71) 94 09/11/17 21:48 20 09/11/17 20:55 97.0 69 18 116/69 (85) 94 09/11/17 16:00 98.1 77 18 110/64 (79) 99 09/11/17 12:40 98.3 81 19 112/79 (90) 97 I/O 09/11/17 09/11/17 09/11/17 09/12/17 09/12/17 09/12/17 07:00 15:00 23:00 07:00 15:00 23:00 Intake Total 480 ml 460 ml 120 ml Output Total 400 ml 1000 ml 400 ml 400 ml Balance 80 ml -1000 ml 60 ml -280 ml Intake Oral 480 ml 360 ml 120 ml IV Total 100 ml Output Urine Total 400 ml 1000 ml 400 ml 400 ml # Bowel Movements 0 0 0 Result Diagram: 09/11/17 0453 09/11/17 045 Objective Remarks Awake, alert, no acute distress. Continues to have less confusion. Nonlabored respirations Bilateral lower extremities: grossly neuro intact. Sensation intact. Brisk cap refill Patient able to turn over in bed without any significant assistance. Dressing removed. Incision appears intact with sutures in place. Small area at the distal incision which does not appear completely sealed at this time. We will leave sutures in place. New dressing applied. Assessment & Plan Assessment and Plan 72-year-old man now postop day 19 status post revision bilateral L3 4, L4 5 and L5-S1 laminectomies. With purulence Intra-Op and therefore hardware placement was aborted and only decompression performed. Small intraoperative dural leak. 1. Continue Patient mobilizing out of bed 1-2 times daily with brace on. 2. Patient mental status improving. Psych and neurology has seen the patient. Limited narcotics and Flexeril. 3. chemical DVT prophylaxis was contra-indicated at this time per med, cont with SCDs (applied) and mobilization 3. ID managing IV abx. Plan to discharge on dapto but awaiting Cr levels to decide dosing. 4. nephrology following renal insufficiency. Creatinine trending down 5. discharge planning for rehabilitation once medically cleared and mental status improves 6. Hgb improved. Stable currently 7. I will leave sutures in place at this time. Recheck incision on Monday morning. Jessica Stubbs MD Sep 12, 2017 10:22
[2017-09-12] MEDS ORDERED: DAPT250I IV (10:50)
[2017-09-12] MEDS ORDERED: SOLU250I IV PUSH (10:51)
[2017-09-12] MEDS ORDERED: EPIN1INJ21 SQ (10:51)
[2017-09-12] MEDS ORDERED: EPIN1INJ21 IV PUSH (10:51)
--- NOTE | 2017-09-12 10:56 | HHI.FF ---
Infusion Therapy Location of Infusion Therapy: [facility] Infusion Therapy Order Patient Information Appointment Date: Sep 12, 2017 Patient Weight 101.6 kg Diagnosis: Diagnosis Staph Lugdenensis Spinal osteomyelitis Coded Allergies: vancomycin (Verified Allergy, Severe, 09/05/17) Renal Failure No Known Allergies (Verified Allergy, Unknown, 08/22/17) Administer Medication Daptomycin 1 gram IV q 24 hours Start Treatment: Sep 12, 2017 Stop Treatment: Oct 23, 2017 Additional Information Additional Instructions [x] Peripheral flush and dressing changes per protocol [x] Implanted port and central case liner: * Implanted port: 10 ml Normal Saline followed by 5 ml Heparin 100 units/ml Heparin flush after each use and monthly to maintain. [] May leave port accessed during therapy. [] May leave peripheral site accessed for duration of therapy. [x] If patient has SOB or respiratory distress, check oxygen saturation. If less than 90% or clinical signs of respiratory distress, administer oxygen at 2 L/min. via nasal cannula and notify physician. [x] Anaphylaxis/Reaction orders: * Stop infusion. * Keep IV line open with saline flush. * Notify physician. * Monitor vital signs every 15 minutes until symptoms resolve. * Check Oxygen saturation; Oxygen at 2 L/min. via nasal cannula if less than 90% or clinical signs of respiratory distress. * Administer diphenhydramine (Benadryl) 25 mg IV STAT, (unless patient has received as pre-med). May repeat once, if necessary. * Solu-Cortef 250 mg IVP over 30-60 seconds, use 100 mg vials for each dissolution. * Epinephrine (1mg/1 ml) 0.3 mg subcutaneously or IVP now with any signs of respiratory distress. * Check with physician for new additional pre-med orders if patient is re- challenged or re-treated. [x] May remove PICC line when treatment complete, after confirming with Physician. [x] If the patient is admitted to the hospital, the ED, or transferred via [facility] , complete transfer form including medication reconciliation order sheet. Laboratory Tests Weekly Labs: CBC w/diff, Creatinine, CRP, LFT's (Hepatic function test), Serum CK Levels Additional Information Please draw weekly labs, call abnormal labs to primary or or covering ID Physician Marla Culp MD Sep 12, 2017 10:56
--- NOTE | 2017-09-12 10:58 | HHI.PR ---
Addendum to Inpatient Note Addendum Reason: Additional Documentation Additional Information RN informs me patient is to [facility]. Post hospital infusion orders in chart. dw Nurse who called me. Please consult as patient needs repeat imaging of spine at some point in next 2 weeks. Will sign off please call back if any change in clinical condition or questions. Marla Culp MD Sep 12, 2017 10:58
[2017-09-12 12:27] VITALS: BP 120/67; PULSE 67; RESP 17; TEMP 98; O2SAT 94
--- NOTE | 2017-09-12 12:44 | HHI.DS ---
Discharge Summary Admission Date Aug 22, 2017 at 05:44 Discharge Date: Sep 12, 2017 Admitting Diagnosis lumbar abscess (1) Lumbar post-laminectomy syndrome ICD Code: M96.1 - Postlaminectomy syndrome, not elsewhere classified Status: Acute (2) Lumbar spinal stenosis ICD Code: M48.061 - Spinal stenosis, lumbar region without neurogenic claudication Status: Chronic (3) HTN (hypertension) ICD Code: I10 - Essential (primary) hypertension Status: Chronic (4) History of gout ICD Code: Z87.39 - Personal history of other diseases of the musculoskeletal system and connective tissue Status: Chronic (5) S/P lumbar laminectomy ICD Code: Z98.890 - Other specified postprocedural states (6) Spinal abscess ICD Code: M46.20 - Osteomyelitis of vertebra, site unspecified Status: Acute Procedures cc: Jessica Stubbs MD Operative Report Date of Surgery: Aug 22, 2017 Preoperative Diagnosis: 1. L3-4, L4-5 lumbar stenosis with neurogenic claudication 2. L3-4, L4-5 and L5-S1 foraminal stenosis with bilateral lower extremity radiculopathy 3. 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 L3-4, L4-5 lumbar stenosis with neurogenic claudication 2. L3-4, L4-5 and L5-S1 foraminal stenosis with bilateral lower extremity radiculopathy 3. 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 Possible deep lumbar abscess Procedure: 1. Right revision laminectomies with partial facetectomies L3-4, L4-5 and L5-S1 2. Left revision laminectomies with partial facetectomies L3-4, L4-5 and L5-S1 3. Incision and drainage lumbar abscess Anesthesia: General Surgeon: Jessica Stubbs [place] Machine Operator(s): Dr. Rafael Beaulieu Operation and Findings: EBL: 600 cc Complications: Small CSF leak, self-contained Specimens: Multiple cultures and gross pathology sent to lab for evaluation Indications for procedure: Patient is a 72-year-old gentleman who underwent bilateral hemilaminectomies at L3-S1 in February of last year by my partner Dr. Janak Beaulieu. Initially, he had significant improvement in his radicular symptoms, however, he developed a large fluid collection requiring drainage in March. Subsequently, he developed recurrent symptoms and early May with imaging demonstrating a recurrent disc herniation requiring revision bilateral hemilaminectomies at L3-L5 by Dr. Beaulieu. Postoperatively, he had significant improvement in his symptoms for only 2 weeks with recurrent radiculopathy and neurogenic medications symptoms. Repeat imaging at the beginning of July demonstrated a recurrent disc herniation at L4-5 along with significant central and foraminal stenosis at L3-4 and foraminal stenosis at L5-S1. Options of management were discussed with the patient. Surgical intervention in the form of revision decompression with posterior instrumentation and fusion from L3-S1 with transforaminal interbody devices was discussed with the patient. Risks including but not limited to: Infection, hardware malposition or failure, CSF leak which could be persistent, neurologic injury leading to possible weakness or paralysis, pseudoarthrosis, adjacent segment disease requiring revision surgery, possible need for further surgery, worsening or no improvement in symptoms, and other unforeseen complications were all discussed with the patient. At this time he did consent to the above- mentioned procedure. Description of procedure: Patient was brought back to the operating room and general anesthesia then ensued. A Martin catheter was placed. Neuromonitoring leads were placed. An arterial line was started by anesthesia. Patient was then flipped prone onto the operating room table with all bony prominences well padded. Patient was prepped and draped in standard sterile fashion. A timeout was performed to identify the correct patient, side, site and procedures to be performed. Patient received preoperative antibiotics in the form of Ancef and vancomycin. An incision was made through the prior midline incision and extended distally approximately 2 cm. Sharp and electrocautery dissection was carried through the subcutaneous tissue and through the fascia. The remaining spinous process of L3 and S1 were utilized as midline guidelines to allow elevation of the paraspinals and scar tissue from the midline. There is a significant amount of scar tissue between the caudal edge of L3 and the superior edge of S1. This was initially left in place as dissection over the more cranial aspect of L3 and the caudal aspect of S1 was performed. Deep retractors were placed. At this time the facets and transverse processes were identified to allow for pedicle screws to be placed. However, as the right L4- 5 facet was identified and exposed there appeared to be purulent material coming from the facet. This was cultured and sent to the lab for stat interpretation. While awaiting the results, I turned my attention to the scar tissue between the caudal aspect of L3 and the cranial aspect of S1. As I started to remove this tissue, I encountered a large pocket of purulent appearing material just dorsal to the dura. This was also cultured and gross pathology sent to the lab. At this point, the initial cultures came back with moderate white blood cells with significant inflammatory tissue. My partner, Dr. Rafael Beaulieu, was available at this time to assist. As this purulence and inflamed tissue was removed, it was decided to abort the hardware insertion portion of the case given the significant concern for infection. At this time, I turned my attention to the revision decompression portion of the case. There was extensive scar tissue from the caudal aspect of L3 to the cranial aspect of S1. The edges of the remaining lamina, pars and spinous processes were freed of scar tissue and the scar tissue mobilized. The central decompression was revised at L3-4 with removal of the remaining lamina on both the right and left and extended to the lateral recesses. As the lateral recess on the right L3-4 level was removed, there appeared to be a small dural leak which sealed on its own and was self-contained. The central decompression was then revised at L5-S1 with removal of the remaining lamina on both the right and left and extended to the lateral recesses bilaterally with partial facetectomies. The remaining lamina of L4 was freed from scar tissue and then removed with the use of high-speed luisito and Kerrison rongeurs. There was noted to be significant stenosis at the level of the L4 lamina. The entirety of the L4 lamina on both the right and left was removed and the dural sac appeared to be free of significant compression at that point. The decompression was extended to the lateral recess with partial facetectomy, the right and left. The rest of the facets on both the right and left at L3-4, L4-L5 and L5-S1 were left in place as we were not planning to instrument at this time due to the concern for infection. In addition, it was elected to avoid a discectomy at this time as there was concern for infection dorsal to the dura sac and I would not want this tracked into the disc space should it be infection. The wound was thoroughly irrigated throughout the entire procedure but again with 1 L of normal saline laden with gentamicin at the end of the procedure. Hemostasis was achieved. A small piece of DuraGen was placed on the right side over the small dural leak. DuraSeal was then applied. A deep drain was placed below the fascia. The fascia was then closed with #1 PDS sutures. Subcutaneous tissue was then closed with 2-0 PDS sutures and skin closed with 2- 0 nylon sutures. Sterile dressings were applied. Patient was transferred from the operating room table onto a stretcher. Patient was then awoken from general anesthesia without complication. It should be noted the patient remained hemodynamically stable throughout the entire procedure. It should also be noted that there was difficulty obtaining baseline neuromonitoring, however, there were no appreciable adverse events throughout the procedure. Disposition: Patient will remain at bed rest with head of bed flat for at least 48 and possibly 72 hours for his small dural tear. Hemovac will be to gravity only, no suction. Will monitor intraoperative cultures and ask infectious disease to help with treatment. Jessica Stubbs MD Aug 23, 2017 07:47 <Electronically signed by Jessica Stubbs MD> 08/23/17 1311 Brief History - From Admission Mr. Do is a 72-year-old male. He is here for a planned lumbar fusion but upon attempted surgery signs of infection were noticed and surgery was called off. She had transient hypotension we're consulted in this regard. Other than chronic back pain and hypertension patient has no reported medical problems. He 's had 3 back surgeries preceding attempt at back surgery today. She also has a history of surgical repair of a duodenal ulcer and tonsillectomy. She has not been having any fever or chills. No acute complaints other than back pain when seen. Hypotension has improved. CBC/BMP: 09/11/17 0453 09/11/17 0453 Significant Findings Laboratory Tests Test 09/09/17 15:52 09/11/17 04:53 Blood Urea Nitrogen 37 MG/DL (7-18) 32 MG/DL (7-18) Creatinine 2.27 MG/DL (0.60-1.30) 2.35 MG/DL (0.60-1.30) Random Glucose 117 MG/DL (74-106) Calcium Level 8.4 MG/DL (8.5-10.1) Chloride Level 108 MEQ/L (98-107) Estimat Glomerular Filtration Rate 29 ML/MIN (>89) 28 ML/MIN (>89) Red Blood Count 3.12 MIL/MM3 (4.50-5.90) Hemoglobin 9.4 GM/DL (13.0-17.0) Hematocrit 28.1 % (39.0-51.0) Imaging Last Impressions Skull X-Ray 09/07/17 Signed Impressions: Service Date/Time: August 19:57 - CONCLUSION: Nothing seen to preclude MRI. Black Li MD Brain MRI 09/07/17 Signed Impressions: Service Date/Time: August 20:32 - CONCLUSION: No mass, acute infarct or other acute intracranial abnormality. Black Li MD Abdomen X-Ray 09/07/17 Signed Impressions: Service Date/Time: August 19:58 - CONCLUSION: No contraindications to MRI demonstrated. Black Li MD Renal Ultrasound 08/27/17 Signed Impressions: Service Date/Time: Sunday, August 27, 2017 17:45 - CONCLUSION: 1. No evidence hydronephrosis. 2. Complex cystic or solid mass in the lower pole the right kidney and complexes at mass in the midpole of the right kidney. 3. Possible punctate nonobstructing calculus in the left kidney. Maicol Sandoval MD Chest X-Ray 08/27/17 Signed Impressions: Service Date/Time: Sunday, August 27, 2017 13:32 - CONCLUSION: Left-sided PICC line tip at the cavoatrial junction. Maicol Sandoval MD PE at Discharge GENERAL: Well-nourished, well-developed patient. Sitting in chair. Brace around her abdomen. NECK: Supple, trachea midline. No JVD or lymphadenopathy. CARDIOVASCULAR: Regular rate and rhythm without murmurs, gallops, or rubs. RESPIRATORY: Breath sounds equal bilaterally. No accessory muscle use. GASTROINTESTINAL: Abdomen soft, non-tender, nondistended. BACK: Tender at surgical site. EXTREMITIES: no significant edema NEURO: Weak legs, 2/5-3/5 strength bilaterally Pt update on day of discharge Says he is much better today and tolerated PT . No fever or chills. No n/v/d/c. Looking forward to do more PT at rehab. No n/v/d. With constipation received laxatives. 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 Surgery following Continue Daptomycin IV Gout Continue allopurinol DVT prophylaxis Anticoagulation at discretion of surgeon Discharge Planning Plan for discharge to inpatient rehab. Patient is improving. To have IV antibiotics daptomycin continued rehab. Appreciate infectious disease specialist recommendations. Patient needs further imaging in 1 or 2 weeks per infectious disease. CM ff for DC plan PT/OT eval Abx at DC : Daptomycin 1 gram IV q 24 hours. Stop Treatment: Oct 23, 2017. Seen by Dr Nazia Culp ID please consult Dr Solorio while at [place] . Patient need further back imaging in 1-2 weeks per ID Pt Condition on Discharge: Stable Discharge Disposition: Rehab Inpatient Discharge Time: > 30 minutes Discharge Instructions DIET: Follow Instructions for: Heart Healthy Diet, Diabetic Diet Activities you can perform: Regular-No Restrictions Follow up Referrals: Infectious Disease - 1 Week with Marla Culp MD Neurosurgery - 1 Week PCP Follow-up - 2-3 Days New Medications: Daptomycin Inj (Daptomycin Inj) 500 Mg Vial 1000 MG IV Q24H for Infection for 30 Days, VIAL 0 Refills Must dilute in appropriate IV Fluid prior to administration Epinephrine Inj (Epinephrine Inj) 1 Mg/Ml (1 Ml) Inj 0.3 MG IV PUSH ONCE PRN for ALLERGIC REACTION, #1 VIAL Epinephrine Inj (Epinephrine Inj) 1 Mg/Ml (1 Ml) Inj 0.3 MG SQ ONCE PRN for ALLERGIC REACTION, #1 VIAL Give with any signs of respiratory distress. Hydrocortisone Inj (Solu-Cortef Inj) 250 Mg/2 Ml Inj 250 MG IV PUSH ONCE PRN for ALLERGIC REACTION, #1 VIAL 0 Refills Give over 30-60 seconds. Ergocalciferol (Ergocalciferol) 50,000 Unit Cap 37676 UNITS PO Q7D for vid d defici, #10 CAP Midodrine (Midodrine) 5 Mg Tab 5 MG PO TID@07,12,17 PRN for Systolic BP less than 90 mmHg, #30 TAB Quetiapine (Seroquel) 25 Mg Tab 25 MG PO BID@09,12 for Anxiety, #60 TAB Sennosides-Docusate Sodium (Gnp Senna Plus 8.6-50 mg) 8.6 Mg-50 Mg Tab 1 TAB PO BID PRN for constipation, #60 TAB Tamsulosin (Flomax) 0.4 Mg Cap 0.4 MG PO DAILY for bph, #30 CAP Continued Medications: Allopurinol (Allopurinol) 300 Mg Tab 300 MG PO DAILY for Gout, #30 TAB 0 Refills Carvedilol (Carvedilol) 6.25 Mg Tab 6.25 MG PO BID, #60 TAB 0 Refills Cyclobenzaprine (Flexeril) 5 Mg Tab Unknown Dose PO HS for Muscle Spasm, #90 TAB 0 Refills Furosemide (Furosemide) 20 Mg Tab 20 MG PO BID, #60 TAB 0 Refills Gabapentin (Gabapentin) 400 Mg Cap 400 CAP PO TID, #30 CAP 0 Refills Hydrocodone-Acetaminophen (Hydrocodone-Acetaminophen) 10-325 mg Tab 1 TAB PO Q6H PRN for PAIN, #20 TAB 0 Refills (This prescription has been renewed ) Lisinopril (Lisinopril) 10 Mg Tab 10 MG PO DAILY, #30 TAB 0 Refills Meloxicam (Meloxicam) 15 Mg Tab 15 MG PO DAILY for Arthritis Pain, #30 TAB 0 Refills Multiple Vitamin (Multi-Vitamin Daily) 1 Tab Tab 1 TAB PO DAILY for Nutritional Supplement, TAB 0 Refills Pantoprazole (Protonix) 40 Mg Tab 20 MG PO DAILY for Reflux, #30 TAB 0 Refills Potassium Chloride ER (Potassium Chloride ER) 10 Meq Cap 10 MEQ PO BID for Electrolyte Replacement, #30 CAP 0 Refills Triamterene-Hydrochlorothiazide (Triamterene-Hydrochlorothiazide) 37.5-25 Mg Cap 1 CAP PO BID, #30 CAP 0 Refills Aracely Silva MD Sep 12, 2017 12:44
[2017-09-12] MEDS ORDERED: TAMS5CAP PO (12:54)
[2017-09-12] MEDS ORDERED: PERI PO (12:54)
[2017-09-12] MEDS ORDERED: MIDO5TAB PO (12:54)
[2017-09-12] MEDS ORDERED: VITA500012 PO (12:54)
[2017-09-12] MEDS ORDERED: SERO25TA PO (12:54)
[2017-09-12] MEDS ORDERED: HYDR-3583 PO (12:54)
== END 2017-09-12 15:23 | DRG 856 ==
LOC: HSDI 05:44 → N06A 19:53
PROVIDERS: ADMIT Orthopaedic Surgery Orthopaedic Surgery of the Spine; ATTEND Orthopaedic Surgery Orthopaedic Surgery of the Spine
PROC: 0T9B70Z Drainage of Bladder with Drainage Device, Via Natural or Artificial Opening (ICD-10-PCS; 2017-08-22)
PROC: 30233N1 Transfusion of Nonautologous Red Blood Cells into Peripheral Vein, Percutaneous Approach (ICD-10-PCS; 2017-08-22)
PROC: 00NY0ZZ Release Lumbar Spinal Cord, Open Approach (ICD-10-PCS; principal; 2017-08-22 07:34)
PROC: 0T9B70Z Drainage of Bladder with Drainage Device, Via Natural or Artificial Opening (ICD-10-PCS; 2017-08-31)
DX: T81.4XXA Infection following a procedure, initial encounter (principal); G06.1 Intraspinal abscess and granuloma; M96.1 Postlaminectomy syndrome, not elsewhere classified; N17.0 Acute kidney failure with tubular necrosis; G93.40 Encephalopathy, unspecified; I95.9 Hypotension, unspecified; N12 Tubulo-interstitial nephritis, not specified as acute or chronic; M46.26 Osteomyelitis of vertebra, lumbar region; L03.213 Periorbital cellulitis; E87.5 Hyperkalemia; D64.9 Anemia, unspecified; M48.062 Spinal stenosis, lumbar region with neurogenic claudication; M51.16 Intervertebral disc disorders with radiculopathy, lumbar region; M48.07 Spinal stenosis, lumbosacral region; Y83.8 Other surgical procedures as the cause of abnormal reaction of the patient, or of later complication, without mention of misadventure at the time of the procedure; Y82.8 Other medical devices associated with adverse incidents; Z87.11 Personal history of peptic ulcer disease; M10.9 Gout, unspecified; M16.10 Unilateral primary osteoarthritis, unspecified hip; I10 Essential (primary) hypertension; N52.9 Male erectile dysfunction, unspecified; G60.9 Hereditary and idiopathic neuropathy, unspecified; E66.9 Obesity, unspecified; Z87.891 Personal history of nicotine dependence; Z74.01 Bed confinement status; N28.89 Other specified disorders of kidney and ureter; T36.8X5A Adverse effect of other systemic antibiotics, initial encounter; Y92.239 Unspecified place in hospital as the place of occurrence of the external cause; L21.9 Seborrheic dermatitis, unspecified; R25.1 Tremor, unspecified; H10.9 Unspecified conjunctivitis; F29 Unspecified psychosis not due to a substance or known physiological condition; G89.29 Other chronic pain; D30.01 Benign neoplasm of right kidney; R33.9 Retention of urine, unspecified; K59.00 Constipation, unspecified
CPT/HCPCS: 36430; 36569; 70250; 70551; 71045; 74018; 76000; 76775; 76937; 80048; 80053; 80069; 80076; 80202; 81003; 82140; 82272; 82306; 82550; 82565; 82570; 82607; 82728; 82784; 82805; 83540; 83550; 83735; 83883; 84100; 84165; 84207; 84300; 84425; 84439; 84443; 85014; 85018; 85025; 85027; 85652; 86021; 86141; 86160; 86334; 86403; 86850; 86900; 86901; 86920; 87015; 87070; 87077; 87102; 87116; 87176; 87186; 87205; 87206; 88305; 88331; 94150; 95819; C1751; J0131; J0690; J0712; J0878; J1100; J1580; J1940; J2250; J2270; J2370; J2405; J2543; J2710; J2997; J3010; J3370; J7030; J7040; J7050; J7120; P9016

== ENCOUNTER 2017-12-04 07:22 | Inpatient (IN) | END 2017-12-19 20:00 | DRG 682 | DX: N17.0 Acute kidney failure with tubular necrosis (principal); G93.49 Other encephalopathy; E87.2 Acidosis; I12.0 Hypertensive chronic kidney disease with stage 5 chronic kidney disease or end stage renal disease; N13.8 Other obstructive and reflux uropathy; T82.838A Hemorrhage due to vascular prosthetic devices, implants and grafts, initial encounter; R13.10 Dysphagia, unspecified; E87.5 Hyperkalemia; N18.6 End stage renal disease; K74.60 Unspecified cirrhosis of liver; G89.29 Other chronic pain; M25.512 Pain in left shoulder; E16.2 Hypoglycemia, unspecified; N40.1 Benign prostatic hyperplasia with lower urinary tract symptoms; D72.829 Elevated white blood cell count, unspecified; D63.8 Anemia in other chronic diseases classified elsewhere; G62.9 Polyneuropathy, unspecified; R33.9 Retention of urine, unspecified; Z66 Do not resuscitate; E83.51 Hypocalcemia; E87.70 Fluid overload, unspecified; E87.6 Hypokalemia; K59.00 Constipation, unspecified; T50.905A Adverse effect of unspecified drugs, medicaments and biological substances, initial encounter; R07.81 Pleurodynia; M48.061 Spinal stenosis, lumbar region without neurogenic claudication; M47.9 Spondylosis, unspecified; N28.89 Other specified disorders of kidney and ureter; R29.6 Repeated falls; M10.9 Gout, unspecified; M19.90 Unspecified osteoarthritis, unspecified site; Z87.11 Personal history of peptic ulcer disease; Z87.891 Personal history of nicotine dependence ==

== ENCOUNTER 2018-06-24 07:44 | Inpatient (IN) ==
[2018-06-24] MEDS: Sod Chloride 0.9% Inj 1,000 ML IV.CONT SCH (07:55)
--- NOTE | 2018-06-24 08:08 | ED ---
HPI General Chief Complaint: Stroke Alert Stated Complaint: Medical Time Seen by Provider: 06/24/18 07:47 Source: patient and EMS Mode of arrival: EMS Limitations: altered mental status History of Present Illness HPI narrative: 73 y/o male presents by ambulance with last seen normal at 7 PM last night. He was found this morning on the floor per the ambulance team. He is alert and oriented to his first name and location but cannot tell you the month, year or situation. He denies specific complaints and does not know why he is here which limits history. The ambulance team states he got a partial treatment of dialysis yesterday given his blood pressure was low. They state that he just started dialysis. Patient cannot provide any significant history at this time Related Data Home Medications Medication Instructions Recorded Confirmed B complex-vitamin C-folic acid 1 tab PO DAILY 03/26/18 06/24/18 [Nephro-Andres] allopurinol 100 mg PO Q3W 03/26/18 06/24/18 carvedilol 6.25 mg PO BID 03/26/18 06/24/18 gabapentin 300 mg PO DAILY PRN 03/26/18 06/24/18 tamsulosin 0.4 mg PO DAILY 03/26/18 06/24/18 tramadol 50 mg PO BID 03/26/18 06/24/18 zolpidem 10 mg PO HS 03/26/18 06/24/18 Allergies Allergy/AdvReac Type Severity Reaction Status Date / Time vancomycin Allergy Severe n/a Verified 06/20/18 12:00 Review of Systems ROS Unobtainable ROS Unobtainable: unobtainable due to mental status PMFSH History History Provided By: Patient, Medical Record and Tool Rental Technician / EMT Medical History Medical History Cirrhosis (Acute) AV fistula (Acute) Arthritis (Acute) Duodenal ulcer (Acute) Gout (Acute) Hypertension (Acute) Hypertension, well controlled (Acute) Joint pain (Acute) Vascular dialysis catheter in place (Acute) Surgical History Surgical History History of back surgery (Acute) History of cataract extraction with lens replacement (Acute) Social History Social History Substance History: Unable to Obtain Second Hand Smoke Exposure: No Smoking Status: Cognitive impairment How Often Do You Have a Drink Containing Alcohol: Unable to Obtain Recent Travel in [facility] within the Last 8 Weeks: No Recent Out of Country Travel within the Last 8 Weeks: No Exam Narrative Exam Narrative: GENERAL: 73 y/o male in no apparent distress SKIN: Focused skin assessment warm/dry. HEAD: Atraumatic. Normocephalic. EYES: Pupils equal and round. No scleral icterus. No injection or drainage. ENT: No nasal bleeding or discharge. Mucous membranes pink and moist. NECK: Trachea midline. CARDIOVASCULAR: Regular rate and rhythm. RESPIRATORY: No accessory muscle use. Clear to auscultation. Breath sounds equal bilaterally. GASTROINTESTINAL: Abdomen soft, non-tender, nondistended. MUSCULOSKELETAL: No obvious deformities. No clubbing. No cyanosis. NEUROLOGICAL: Awake and alert to first name, knows in hospital, states 1970 does not know why he is here. Motor grossly within normal limits. Patient's speech is noted to have intermittent expressive a aphasia with intermittent slurring Course Reevaluation(s) Reevaluation #1: Dr. Bryant came to bedside and requested an ABG as he thought the process was more metabolic in nature. ABG does not show acidosis and is normal. Ammonia added on and is also normal. Urinalysis does show UTI she was given Rocephin. An extra dialysis was coordinated given he had contrast and he will be admitted for further care. Consultations Consultation #1: Dr. Bryant requests to initiate stroke protocol including CT perfusion and CTA's Consultation #2: dr shirley states will see patient Consultation #3: resident team agrees to admit Initial Documented Vital Signs Blood Pressure 116/62 06/24/18 07:45 Last Documented Vital Signs Pulse Rate 64 06/24/18 09:09 Respiratory Rate 18 06/24/18 09:09 Blood Pressure 111/65 06/24/18 09:09 Pulse Oximetry 100 06/24/18 10:10 NIH Stroke Scale NIH Stroke Scale Level of Consciousness: 0-Alert Orientation Questions: 2-Neither task correct Responds to Commands: 0-Both tasks correct Gaze Eye Movement: 0-Horizontal movement WNL Visual Dhillon: 0-No visual field defect Facial Movement: 0-Normal Motor Functions Arm LEFT: 0-No drift Motor Functions Leg LEFT: 0-No drift Motor Functions Leg RIGHT: 0-No drift Limb Ataxia: 0-No ataxia Sensory Loss: 0-No sensory loss Best Language: 1-Mild aphasia Articulation: 1-Mild dysarthia Extinction or Inattention Sensory: 0-Absent Total: 4 Medical Decision Making MDM Narrative Medical decision making narrative: Given protocol with an 24-hour window will initiate stroke alert and discussed with neurologist while checking workup Medical Screen Exam Complete: Yes Emergency Medical Condition: Yes Differential Diagnosis Differential Diagnosis: Hyponatremia, UTI, mass, stroke, bleed Lab Data Lab results reviewed: Yes I reviewed the patient's lab results. Result diagrams: 06/24/18 07:51 Lab Results 06/24/18 06/24/18 06/24/18 Range/Units 07:51 07:51 07:51 WBC 11.3 H (4.0-11.0) th/mm3 RBC 3.28 L (4.50-5.90) mil/mm3 Hgb 10.8 L (13.0-17.0) gm/dL POC Hgb (Calc) 10.5 L (13.0-17.0) g/dL Hct 33.2 L (39.0-51.0) % POC Hct 31.0 L (39-51.0) % MCV 101.4 H (80.0-100.0) fL MCH 33.0 (27.0-34.0) pg MCHC 32.6 (32.0-36.0) % RDW 16.5 (11.6-17.2) % Plt Count 169 (150-450) th/mm3 MPV 9.0 (7.0-11.0) fL Neut % (Auto) 80.0 H (16.0-70.0) % Lymph % (Auto) 9.9 (9.0-44.0) % Sutton % (Auto) 9.7 H (0.0-8.0) % Eos % (Auto) 0.1 (0.0-4.0) % Baso % (Auto) 0.3 (0.0-2.0) % Neut # (Auto) 9.0 H (1.8-7.7) th/mm3 Lymph # (Auto) 1.1 (1.0-4.8) th/mm3 Sutton # (Auto) 1.1 H (0.0-0.9) th/mm3 Eos # (Auto) 0.0 (0.0-0.4) th/mm3 Baso # (Auto) 0.0 (0.0-0.2) th/mm3 WBC Differential . Differential Comment Auto diff final PT 12.9 H (9.8-11.6) sec INR 1.3 Ratio APTT 31.4 (23.4-31.7) sec Fibrinogen 459 H (227-377) mg/dL Puncture Site Patient Temperature O2 Saturation (90-100) % ABG pH (7.380-7.420) ABG pCO2 (38-42) mmHg ABG pO2 (61-120) mmHg ABG HCO3 (22-26) mmol/L ABG O2 Content (12.0-20.0) Vol % ABG Base Excess (-2-2) mmol/L ABG Methemoglobin (0-2) % Luis Test Hemoglobin (12.0-16.0) G/DL Carboxyhemoglobin (0-4) % O2 Delivery Device Inspired O2 % Critical Value POC Sodium 139 (137-144) mmol/L POC Potassium 4.4 (3.6-5.0) mmol/L POC Chloride 105 (102-111) mmol/L POC BUN 37 H (5-21) mg/dL POC Creatinine 5.3 H (0.6-1.3) mg/dL POC Glucose 101 (68-110) mg/dL Phosphorus (2.5-4.9) mg/dL Magnesium (1.5-2.5) mg/dL Ammonia (11-32) mcmol/L Total Creatine Kinase 187 (39-308) U/L Troponin I Less than 0.02 L (0.02-0.05) ng/mL Urine Color (Yellw/Straw) Urine Clarity (Clear) Urine pH (5.0-8.5) Ur Specific Royal (1.002-1.035) Urine Protein (Neg-Trace) mg/dL Urine Glucose (UA) (Negative) mg/dL Urine Ketones (Negative) mg/dL Urine Occult Blood (Negative) Urine Nitrate (Negative) Urine Bilirubin (Negative) Urine Urobilinogen (Less than 2) mg/dL Ur Leukocyte Esterase (Negative) Urine RBC (0-3) /hpf Urine WBC (0-5) /hpf Amorphous Sediment (None) /hpf Urine Bacteria (None) /hpf Urine Mucus (Occasional) /lpf Micro UA Comment Ur Microscopic Review Urine Culture Comments Urine Opiates Screen (Neg) Ur Barbiturates Screen (Neg) Ur Amphetamines Screen (Neg) U Benzodiazepines Scrn (Neg) Urine Cocaine Screen (Neg) U Cannabinoids Screen (Neg) Blood Type Antibody Screen 06/24/18 06/24/18 06/24/18 Range/Units 07:51 08:30 08:40 WBC (4.0-11.0) th/mm3 RBC (4.50-5.90) mil/mm3 Hgb (13.0-17.0) gm/dL POC Hgb (Calc) (13.0-17.0) g/dL Hct (39.0-51.0) % POC Hct (39-51.0) % MCV (80.0-100.0) fL MCH (27.0-34.0) pg MCHC (32.0-36.0) % RDW (11.6-17.2) % Plt Count (150-450) th/mm3 MPV (7.0-11.0) fL Neut % (Auto) (16.0-70.0) % Lymph % (Auto) (9.0-44.0) % Sutton % (Auto) (0.0-8.0) % Eos % (Auto) (0.0-4.0) % Baso % (Auto) (0.0-2.0) % Neut # (Auto) (1.8-7.7) th/mm3 Lymph # (Auto) (1.0-4.8) th/mm3 Sutton # (Auto) (0.0-0.9) th/mm3 Eos # (Auto) (0.0-0.4) th/mm3 Baso # (Auto) (0.0-0.2) th/mm3 WBC Differential Differential Comment PT (9.8-11.6) sec INR Ratio APTT (23.4-31.7) sec Fibrinogen (227-377) mg/dL Puncture Site Right radial Patient Temperature 98.6 O2 Saturation 95 (90-100) % ABG pH 7.42 (7.380-7.420) ABG pCO2 36 L (38-42) mmHg ABG pO2 104 (61-120) mmHg ABG HCO3 23 (22-26) mmol/L ABG O2 Content 13.4 (12.0-20.0) Vol % ABG Base Excess -0.7 (-2-2) mmol/L ABG Methemoglobin 1.5 (0-2) % Luis Test Present Hemoglobin 9.9 L (12.0-16.0) G/DL Carboxyhemoglobin 0.8 (0-4) % O2 Delivery Device room air Inspired O2 21 % Critical Value No POC Sodium (137-144) mmol/L POC Potassium (3.6-5.0) mmol/L POC Chloride (102-111) mmol/L POC BUN (5-21) mg/dL POC Creatinine (0.6-1.3) mg/dL POC Glucose (68-110) mg/dL Phosphorus (2.5-4.9) mg/dL Magnesium (1.5-2.5) mg/dL Ammonia Less than 10 L (11-32) mcmol/L Total Creatine Kinase (39-308) U/L Troponin I (0.02-0.05) ng/mL Urine Color (Yellw/Straw) Urine Clarity (Clear) Urine pH (5.0-8.5) Ur Specific Royal (1.002-1.035) Urine Protein (Neg-Trace) mg/dL Urine Glucose (UA) (Negative) mg/dL Urine Ketones (Negative) mg/dL Urine Occult Blood (Negative) Urine Nitrate (Negative) Urine Bilirubin (Negative) Urine Urobilinogen (Less than 2) mg/dL Ur Leukocyte Esterase (Negative) Urine RBC (0-3) /hpf Urine WBC (0-5) /hpf Amorphous Sediment (None) /hpf Urine Bacteria (None) /hpf Urine Mucus (Occasional) /lpf Micro UA Comment Ur Microscopic Review Urine Culture Comments Urine Opiates Screen (Neg) Ur Barbiturates Screen (Neg) Ur Amphetamines Screen (Neg) U Benzodiazepines Scrn (Neg) Urine Cocaine Screen (Neg) U Cannabinoids Screen (Neg) Blood Type A Positive Antibody Screen Negative 06/24/18 06/24/18 06/24/18 Range/Units 09:00 09:00 09:00 WBC (4.0-11.0) th/mm3 RBC (4.50-5.90) mil/mm3 Hgb (13.0-17.0) gm/dL POC Hgb (Calc) (13.0-17.0) g/dL Hct (39.0-51.0) % POC Hct (39-51.0) % MCV (80.0-100.0) fL MCH (27.0-34.0) pg MCHC (32.0-36.0) % RDW (11.6-17.2) % Plt Count (150-450) th/mm3 MPV (7.0-11.0) fL Neut % (Auto) (16.0-70.0) % Lymph % (Auto) (9.0-44.0) % Sutton % (Auto) (0.0-8.0) % Eos % (Auto) (0.0-4.0) % Baso % (Auto) (0.0-2.0) % Neut # (Auto) (1.8-7.7) th/mm3 Lymph # (Auto) (1.0-4.8) th/mm3 Sutton # (Auto) (0.0-0.9) th/mm3 Eos # (Auto) (0.0-0.4) th/mm3 Baso # (Auto) (0.0-0.2) th/mm3 WBC Differential Differential Comment PT (9.8-11.6) sec INR Ratio APTT (23.4-31.7) sec Fibrinogen (227-377) mg/dL Puncture Site Patient Temperature O2 Saturation (90-100) % ABG pH (7.380-7.420) ABG pCO2 (38-42) mmHg ABG pO2 (61-120) mmHg ABG HCO3 (22-26) mmol/L ABG O2 Content (12.0-20.0) Vol % ABG Base Excess (-2-2) mmol/L ABG Methemoglobin (0-2) % Luis Test Hemoglobin (12.0-16.0) G/DL Carboxyhemoglobin (0-4) % O2 Delivery Device Inspired O2 % Critical Value POC Sodium (137-144) mmol/L POC Potassium (3.6-5.0) mmol/L POC Chloride (102-111) mmol/L POC BUN (5-21) mg/dL POC Creatinine (0.6-1.3) mg/dL POC Glucose (68-110) mg/dL Phosphorus 4.5 (2.5-4.9) mg/dL Magnesium 1.9 (1.5-2.5) mg/dL Ammonia (11-32) mcmol/L Total Creatine Kinase (39-308) U/L Troponin I (0.02-0.05) ng/mL Urine Color Yellow (Yellw/Straw) Urine Clarity Hazy H (Clear) Urine pH 5.0 (5.0-8.5) Ur Specific Royal 1.013 (1.002-1.035) Urine Protein Negative (Neg-Trace) mg/dL Urine Glucose (UA) Negative (Negative) mg/dL Urine Ketones Negative (Negative) mg/dL Urine Occult Blood Negative (Negative) Urine Nitrate Negative (Negative) Urine Bilirubin Negative (Negative) Urine Urobilinogen Less than 2 (Less than 2) mg/dL Ur Leukocyte Esterase Trace H (Negative) Urine RBC 1 (0-3) /hpf Urine WBC 11 H (0-5) /hpf Amorphous Sediment Rare H (None) /hpf Urine Bacteria Occasional H (None) /hpf Urine Mucus Few H (Occasional) /lpf Micro UA Comment Cath-culture ind Ur Microscopic Review Not Reportable Urine Culture Comments Cath-cult indicated Urine Opiates Screen Neg (Neg) Ur Barbiturates Screen Neg (Neg) Ur Amphetamines Screen Neg (Neg) U Benzodiazepines Scrn Pos H (Neg) Urine Cocaine Screen Neg (Neg) U Cannabinoids Screen Neg (Neg) Blood Type Antibody Screen Imaging Data Attestation: I personally reviewed and interpreted this imaging study as follows : Radiologist's impression: Head MRI 06/24/18 00:00 CONCLUSION: 1. No acute abnormality seen. No areas of infarction are seen on the diffusion- weighted images. 2. Mild cortical atrophy with widening of the sulci. Chest X-Ray 06/24/18 07:47 CONCLUSION: Expiratory chest x-ray without definite acute cardiopulmonary process. Head CT 06/24/18 07:47 CONCLUSION: 1. No acute intracranial abnormality. 2. Mild age-related atrophy. Report was called by Dr. Javed to Dr. Rodgers at 8:10 AM. Head CTA 06/24/18 07:47 CONCLUSION: Negative CTA. Report was called by [Dr. Javed to Dr. Bryant at 8:48 AM.] Neck CTA 06/24/18 07:47 CONCLUSION: Calcified plaque at the left carotid bulb region. However, a significant stenosis is not seen throughout the study. CT CAD 06/24/18 07:50 CONCLUSION: Physiological brain perfusion parameters with RAPID analysis as above. The decision for consideration of therapy is multi factorial and multi disciplinary relying on subjective and objective clinical data. This data is not construed or intended to be the sole determinant of treatment eligibility. Discharge Plan Discharge Disposition Patient Disposition: 30 Still Patient Discharge Details Diagnosis: Altered mental status, Speech abnormality, ESRD (end stage renal disease) on dialysis Physicians Team ED Provider: Hailey Rodgers Primary Care Provider: UNKNOWN, Other Providers: Morales Shirley Rxs /Orders / Referrals /Forms Prescriptions: No Action carvedilol 6.25 mg Tablet 6.25 mg PO BID RF: 0 allopurinol 100 mg Tablet 100 mg PO Q3W RF: 0 tramadol 50 mg Tablet 50 mg PO BID RF: 0 tamsulosin 0.4 mg Capsule,Extended Release 24hr 0.4 mg PO DAILY RF: 0 gabapentin 300 mg Capsule 300 mg PO DAILY PRN (Reason: Pain) RF: 0 B complex-vitamin C-folic acid [Nephro-Andres] 0.8 mg Tablet 1 tab PO DAILY RF: 0 zolpidem 5 mg Tablet 10 mg PO HS RF: 0 Status ED Status: Admitted Patient
--- NOTE | 2018-06-24 08:14 | CT ---
EXAM DATE: 06/24/2018 8:10 AM EST AGE/SEX: 73 years / Male INDICATIONS: Stroke alert; slurred speech, confusion. CLINICAL DATA: This is the patient's initial encounter. Patient reports that signs and symptoms have been present for 1 day and indicates a pain score of Nonresponsive. MEDICAL/SURGICAL HISTORY: Non-responsive. Non-responsive. RADIATION DOSE: 35.22 CTDI (mGy) COMPARISON: [facility] [place], [place] BRAIN W/O CONTRAST, 12/04/2017. . TECHNIQUE: CT of the head without contrast. Using automated exposure control and adjustment of the mA and/or kV according to patient size, radiation dose was kept as low as reasonably achievable to ob tain optimal diagnostic quality images. DICOM format image data is available electronically for revi ew and comparison. FINDINGS: Cerebrum: The ventricles are normal for age. The cortical sulci are widened. No evidence of midline shift, mass lesion, hemorrhage or acute infarction. No extraaxial fluid collections are seen. Posterior Fossa: The cerebellum and brainstem are intact. The 4th ventricle is midline. The cerebe llopontine angle is unremarkable. Extracranial: The visualized portion of the orbits is intact. Skull: The calvaria is intact. No evidence of skull fracture. CONCLUSION: 1. No acute intracranial abnormality. 2. Mild age-related atrophy. Report was called by Dr. Javed to Dr. Rodgers at 8:10 AM. Electronically signed by: Black Javed MD 06/24/2018 8:13 AM EST
[2018-06-24 08:21] LABS: Baso % (Auto) 0.3 % (0.0-2.0); Eos % (Auto) 0.1 % (0.0-4.0); Hematocrit 33.2 % (39.0-51.0); Hemoglobin 10.8 gm/dL (13.0-17.0); Lymph # (Auto) 1.1 th/mm3 (1.0-4.8); Lymph % (Auto) 9.9 % (9.0-44.0); Mean Corpuscular HGB Conc 32.6 % (32.0-36.0); Mean Corpuscular Volume 101.4 fL (80.0-100.0); Mono # (Auto) 1.1 th/mm3 (0.0-0.9); Mono % (Auto) 9.7 % (0.0-8.0); Platelet Count 169 th/mm3 (150-450); Red Blood Count 3.28 mil/mm3 (4.50-5.90); Red Cell Distribution Width 16.5 % (11.6-17.2); White Blood Count 11.3 th/mm3 (4.0-11.0)
[2018-06-24 08:36] LABS: ABG Base Excess -0.7 mmol/L (-2-2); ABG PCO2 36 mmHg (38-42); ABG PO2 104 mmHg (61-120)
[2018-06-24 08:40] LABS: Creatine Kinase 187 U/L (39-308)
[2018-06-24 08:41] LABS: Activated Partial Thrombo Time 31.4 sec (23.4-31.7); INR 1.3 Ratio; Prothrombin Time 12.9 sec (9.8-11.6)
--- NOTE | 2018-06-24 08:43 | CT ---
EXAM DATE: 06/24/2018 8:32 AM EST AGE/SEX: 73 years / Male INDICATIONS: Stroke alert; slurred speech and confusion. CLINICAL DATA: This is the patient's initial encounter. Patient reports that signs and symptoms have been present for 1 day and indicates a pain score of Nonresponsive. MEDICAL/SURGICAL HISTORY: Non-responsive. Non-responsive. RADIATION DOSE: 314.22 CTDI (mGy) COMPARISON: [facility] [place], [place] HEAD W/O CONTRAST, 06/24/2018. . TECHNIQUE: CT of the head after intravenous administration of 100 ml Omnipaque 350 (iohexol) nonion ic water-soluble contrast as a cumulative dose for multiple exams. Using automated exposure control and adjustment of the mA and/or kV according to patient size, radiation dose was kept as low as reaso nably achievable to obtain optimal diagnostic quality images. DICOM format image data is available e lectronically for review and comparison. FINDINGS: 1. CBF (<30%) Volume (ml): 0 2. Perfusion (Tmax>6.0s) Volume (ml): 40 3. Mismatch Volume (ml) (Tmax>6.0 - CBF): 40 CONCLUSION: Physiological brain perfusion parameters with RAPID analysis as above. The decision for consideration of therapy is multi factorial and multi disciplinary relying on subjec tive and objective clinical data. This data is not construed or intended to be the sole determinant of treatment eligibility. Electronically signed by: Black Javed MD 06/24/2018 8:42 AM EST
--- NOTE | 2018-06-24 08:50 | CT ---
EXAM DATE: 06/24/2018 8:37 AM EST AGE/SEX: 73 years / Male INDICATIONS: Stroke alert; slurred speech, confusion. CLINICAL DATA: This is the patient's initial encounter. Patient reports that signs and symptoms have been present for 1 day and indicates a pain score of Nonresponsive. MEDICAL/SURGICAL HISTORY: Non-responsive. Non-responsive. RADIATION DOSE: 28.20 CTDI (mGy) ; Combined studies [place] [facility] [place] W 3D, 06/24/2018. . TECHNIQUE: Volumetric scanning was performed using a multi-row detector CT scanner during bolus infu sinai of 100 ml Omnipaque 350 (iohexol) nonionic water-soluble contrast as a cumulative dose for mult iple exams. The data was post processed with a variety of visualization algorithms including full v olume maximum intensity projection, multi-planar sliding thin slab reformation, curved planar reforma tion, and surface rendering techniques. Using automated exposure control and adjustment of the mA an d/or kV according to patient size, radiation dose was kept as low as reasonably achievable to obtain optimal diagnostic quality images. DICOM format image data is available electronically for review an d comparison. FINDINGS: There is excellent visualization of the major intracranial arteries out to the second-order branch ve ssels. There is no evidence for aneurysm, vessel truncation or stenosis, and no evidence for vascula r malformation. CONCLUSION: Negative CTA. Report was called by [Dr. Javed to Dr. Bryant at 8:48 AM.] Electronically signed by: Black Javed MD 06/24/2018 8:49 AM EST
--- NOTE | 2018-06-24 08:55 | XR ---
EXAM DATE: 06/24/2018 8:43 AM EST AGE/SEX: 73 years / Male INDICATIONS: Stroke Alert CLINICAL DATA: This is the patient's initial encounter. Patient reports that signs and symptoms have been present for 1 day and indicates a pain score of Nonresponsive. MEDICAL/SURGICAL HISTORY: Non-responsive. Non-responsive. COMPAR[place]: [facility] [place] 1[place] SINGLE AP, 03/26/2018. [facility] [place] HEAD W [place]AST W 3D, 06/24/2018. . FINDINGS: There is a double-lumen line seen entering through the right internal jugular approach with the tip o verlying the right atrium. The heart size is normal in size. The study is a with poor inspiratory eff ort and are some compressive changes. Focal consolidation is not clearly seen. The mediastinum appear s prominent, this is likely from the expiratory AP nature of the chest x-ray. The mediastinum was wit hin normal limits on the CTA. CONCLUSION: Expiratory chest x-ray without definite acute cardiopulmonary process. Electronically signed by: Black Javed MD 06/24/2018 8:54 AM EST
--- NOTE | 2018-06-24 09:06 | CT ---
EXAM DATE: 06/24/2018 8:57 AM EST AGE/SEX: 73 years / Male INDICATIONS: Stroke alert; slurred speech, confusion. CLINICAL DATA: This is the patient's initial encounter. Patient reports that signs and symptoms have been present for 1 day and indicates a pain score of Nonresponsive. MEDICAL/SURGICAL HISTORY: Non-responsive. Non-responsive. RADIATION DOSE: 28.20 CTDI (mGy) ; Combined studies COMPARISON: No prior exams available for comparison. TECHNIQUE: Volumetric scanning was performed using a multirow detector CT scanner during bolus infus ion of 100 ml Omnipaque 350 (iohexol) nonionic water-soluble contrast as a cumulative dose for multi ple exams. The data was postprocessed with a variety of visualization algorithms including full-vol ume maximum intensity projection, multiplanar sliding thin-slab reformation, curved-planar reformatio n, and surface-rendering techniques. Using automated exposure control and adjustment of the mA and/o r kV according to patient size, radiation dose was kept as low as reasonably achievable to obtain opt imal diagnostic quality images. DICOM format image data is available electronically for review and c omparison. FINDINGS: Aortic Arch: There is a three-vessel origin of the great vessels from the aorta. No evidence of ost ial narrowing Right Carotid: The common carotid artery is intact. The carotid bulb has a normal configuration wit hout ulceration or narrowing. The internal carotid artery lumen is smooth without stenosis. The ext ernal carotid artery is intact. Left Carotid: The common carotid artery is intact. There is a calcified plaque at the left carotid b ulb region without significant stenosis. The internal carotid artery lumen is smooth without stenosis . The external carotid artery is intact. Vertebrals: The vertebral arteries are patent bilaterally. They are asymmetric with the right verteb ral artery being larger than the left vertebral artery. No stenotic lesions are seen. Percent stenosis is calculated using the diameter of the stenotic region over the diameter of the nor mal distal internal carotid artery. CONCLUSION: Calcified plaque at the left carotid bulb region. However, a significant stenosis is not seen through out the study. Electronically signed by: Black Javed MD 06/24/2018 9:04 AM EST
[2018-06-24 09:28] LABS: Amorphous Sediment,Urine Rare /hpf; Bacteria,Urine Occasional /hpf; Bilirubin,Urine Negative (Negative); Clarity,Urine Hazy (Clear); Color,Urine Yellow (Yellw/Straw); Glucose,Urine (UA) Negative (Negative); Leukocyte Esterase,Urine Trace (Negative); Mucus,Urine Few /lpf (Occasional); Nitrite,Urine Negative (Negative); Specific Gravity,Urine 1.013 (1.002-1.035)
[2018-06-24 09:35] LABS: Magnesium 1.9 mg/dL (1.5-2.5); Phosphorus 4.5 mg/dL (2.5-4.9)
[2018-06-24 09:36] LABS: Amphetamine Screen,Urine Neg (Neg); Barbiturate Screen,Urine Neg (Neg); Cannabinoid Screen,Urine Neg (Neg); Cocaine Screen,Urine Neg (Neg)
[2018-06-24 09:45] LABS: Opiate Screen,Urine Neg (Neg)
[2018-06-24] MEDS ORDERED: Sod Chloride 0.9% Inj 1,000 ML IV.CONT PRN (09:54)
[2018-06-24] MEDS ORDERED: Heparin 10,000 UNITS/10 ML Vial (for IV use) OTHER PRN ×2 (09:54)
[2018-06-24] MEDS ORDERED: Acetaminophen 325 MG Tablet PO PRN (09:54)
[2018-06-24] MEDS ORDERED: Albumin Human 25% Inj 100 ML IV.SIG PRN (09:54)
[2018-06-24] MEDS ORDERED: Sod Chloride 0.9% Inj 1,000 ML OTHER PRN ×2 (09:54)
[2018-06-24] MEDS ORDERED: Gelatin 12 MM/7 MM Topical Foam TOPICAL PRN (09:54)
--- NOTE | 2018-06-24 10:03 | MR ---
EXAM DATE: 06/24/2018 9:46 AM EST AGE/SEX: 73 years / Male INDICATIONS: Stroke alert. Altered mental status. Left side weakness. CLINICAL DATA: This is the patient's initial encounter. Patient reports that signs and symptoms have been present for 1 day and indicates a pain score of 0/10. MEDICAL/SURGICAL HISTORY: Renal failure, chronic. Dialysis. Fusion, lumbar. AV fistula. COMPARISON: [facility] – [place], MRI BRAIN W/O CONTRAST, 12/06/2017. . TECHNIQUE: Multiplanar, multisequence examination of the brain was performed without contrast. FINDINGS: Cerebrum: The ventricles are normal for age. The cortical sulci are widened. No evidence of midline shift, mass lesion, hemorrhage or acute infarction. No extraaxial fluid collections are seen. The pituitary gland and suprasellar cistern are normal in configuration. White Matter: No significant signal abnormalities are seen in the white matter. Posterior Fossa: The cerebellum and brainstem are intact. The 4th ventricle is midline. The cerebel lopontine angle is unremarkable. The cerebellar tonsils are normal in position. Diffusion Imaging: No focal areas of restricted diffusion are seen. No evidence of acute infarction . Extracranial: The visualized portions of the orbits and paranasal sinuses are unremarkable. CONCLUSION: 1. No acute abnormality seen. No areas of infarction are seen on the diffusion-weighted images. 2. Mild cortical atrophy with widening of the sulci. Electronically signed by: Black Javed MD 06/24/2018 10:02 AM EST
[2018-06-24] MEDS ORDERED: Bisacodyl 10 MG Supp RECTAL PRN (10:58)
--- NOTE | 2018-06-24 11:02 | P.HPFP ---
History of Present Illness Primary Care Physician: UNKNOWN <Willam Lobo - 06/24/18 20:49> UNKNOWN <TayeJonahMeghan - 06/24/18 11:02> History of Present Illness: HPI: 73-year-old male with past medical history of CKD on dialysis, hypertension, high blood pressure, arthritis, history of alcoholism presents to the hospital secondary to a fall and was found to have altered mental status. Per patient, he is unaware of why he is in the hospital. He states he remembers yesterday that he was not feeling well, denies any fevers but went to dialysis. They were unable to do dialysis due to his low blood pressure, and therefore gave him a half dose of dialysis. He then left dialysis, continued to feel "lousy" and was feeling weak throughout the day. He says that in the afternoon he felt weak and sat down but denied ever falling. He does not remember what happened throughout the night but remembers being transported to the hospital in a private vehicle by his this morning. He thinks he is here because he has had the "[place], Wobblies" for the past couple days. Denies any falling in the past. He denies any loss of consciousness, headache, chest pain, shortness of breath, abdominal pain, leg pain, problems with urination or defecation. Denies any pain with urination and urinates twice daily. Past medical history: Patient says he has "a ton", unable to articulate medical problems. Per home medications possibly gout, hypertension, insomnia, BPH, neuropathy. Past surgical history: None Allergies: Patient says none but vancomycin noted in chart. Medications: Reconciled by nurse, unable to verify by patient: Allopurinol, carvedilol, gabapentin, tamsulosin, tramadol and zolpidem. Social history: Lives with at home. Denies any drug use. Confirms being an alcoholic years ago, but quit "for a while". Confirms smoking 1 pack/day around 34 years ago. Sexually active with , denies any history of STDs or hepatitis. Review of systems: Noted in HPI. <Meghan Kothari - 06/24/18 11:51> - Diagnosis (1) Altered mental status (2) UTI (urinary tract infection) (3) ESRD (end stage renal disease) on dialysis (4) Speech abnormality (5) Hypertension (6) Abstinence from alcohol (7) H/O eye surgery (8) DVT prophylaxis (9) Nutrition, metabolism, and development symptoms <Willam Lobo - 06/24/18 20:49> (1) Altered mental status (2) UTI (urinary tract infection) (3) ESRD (end stage renal disease) on dialysis (4) Speech abnormality (5) Hypertension (6) Abstinence from alcohol (7) H/O eye surgery (8) DVT prophylaxis (9) Nutrition, metabolism, and development symptoms <Meghan Kothari - 06/24/18 18:24> Inpatient Certification: I certify that the inpatient services were ordered in accordance with Medicare regulations governing the order. This includes certification that hospital inpatient services are reasonable and necessary and in the case of services not specified as inpatient-only under 42 CFR 419.22(n), that they are appropriately provided as inpatient services in accordance to with the 2-midnight benchmark under 43 CFR 412.3(e) <Willam Lobo - 06/24/18 20:49> I certify that the inpatient services were ordered in accordance with Medicare regulations governing the order. This includes certification that hospital inpatient services are reasonable and necessary and in the case of services not specified as inpatient-only under 42 CFR 419.22(n), that they are appropriately provided as inpatient services in accordance to with the 2-midnight benchmark under 43 CFR 412.3(e) <Meghan Kothari - 06/24/18 11:02> Review of Systems All other systems reviewed negative except as stated in HPI <Meghan Kothari - 06/24/18 11:37> PMFSH - History History Provided By: Patient, Medical Record, Tomographic Tech / EMT <Meghan Kothari - 06/24/18 11:02> - Medical History Medical History: Medical History (Last Reviewed 06/24/18 @ 11:20 by Morales Shirley MD) Cirrhosis AV fistula Arthritis Duodenal ulcer Gout Hypertension Hypertension, well controlled Joint pain Vascular dialysis catheter in place <Willam Lobo - 06/24/18 20:49> Medical History (Last Reviewed 06/24/18 @ 11:20 by Morales Shirley MD) Cirrhosis AV fistula Arthritis Duodenal ulcer Gout Hypertension Hypertension, well controlled Joint pain Vascular dialysis catheter in place <Meghan Kothari - 06/24/18 11:39> - Surgical History Surgical History: Surgical History (Last Reviewed 06/24/18 @ 11:20 by Morales Shirley MD) History of back surgery History of cataract extraction with lens replacement <Willam Lobo - 06/24/18 20:49> Surgical History (Last Reviewed 06/24/18 @ 11:20 by Morales Shirley MD) History of back surgery History of cataract extraction with lens replacement <Meghan Kothari - 06/24/18 11:39> - Tobacco History Second Hand Smoke Exposure: No <Meghan Kothari - 06/24/18 11:02> Smoking Status: Cognitive impairment <Meghan Kothari - 06/24/18 11:02> - Alcohol History How Often Do You Have a Drink Containing Alcohol: Unable to Obtain <Meghan Kothari - 06/24/18 11:02> - Substance Use History Substance History: Unable to Obtain <Meghan Kothari - 06/24/18 11:02> - Travel History Recent Travel in the [facility] Within the Last 8 Weeks: No <Meghan Kothari - 11:02> Recent Travel Out of the Country Within the Last 8 Weeks: No <Meghan Kothari - 06/24/18 11:02> - Immunization History Tetanus Immunization: Unable to Assess <Meghan Kothari - 06/24/18 11:02> Medications and Allergies Allergies Allergy/AdvReac Type Severity Reaction Status Date / Time vancomycin Allergy Severe n/a Verified 06/20/18 12:00 <Willam Lobo - 06/24/18 20:49> Home Medications Medication Instructions Recorded Confirmed Type B complex-vitamin C-folic acid 1 tab PO DAILY 03/26/18 06/24/18 History [Nephro-Andres] allopurinol 100 mg PO Q3W 03/26/18 06/24/18 History carvedilol 25 mg PO BID 03/26/18 06/24/18 History gabapentin 300 mg PO DAILY 03/26/18 06/24/18 History tamsulosin 0.4 mg PO DAILY 03/26/18 06/24/18 History tramadol 50 mg PO BID 03/26/18 06/24/18 History zolpidem 10 mg PO HS PRN 03/26/18 06/24/18 History <LashellWillam Keating - 06/24/18 20:49> Active Medications: Active Medications Acetaminophen (Tylenol) 650 mg PO UNSCH PRN PRN Reason: SEE LABEL COMMENTS Acetaminophen (Tylenol) 650 mg PO Q4H PRN PRN Reason: Temp > 100.4 Al Hydroxide/Mg Hydroxide (Milk Of Inocencio Alejandre) 30 ml PO Q12H PRN PRN Reason: Mild Constipation Aspirin (Ecotrin) 81 mg PO DAILY [facility] Last Admin: 06/24/18 09:25 Dose: 81 mg Bisacodyl (Dulcolax Supp) 10 mg RECTAL DAILY PRN PRN Reason: SEVERE CONSITIPATION Clonidine HCl (Catapres) 0.1 mg PO UNSCH PRN PRN Reason: SEE LABEL COMMENTS Diphenhydramine HCl (Benadryl) 25 mg PO UNSCH PRN PRN Reason: SEE LABEL COMMENTS Epoetin Robel (Epogen Inj) 2,000 unit IV.PUSH UNSCH PRN PRN Reason: SEE LABEL COMMENTS Gelatin (Gelfoam 12 Mm/7 Mm Topical) 1 foam TOPICAL PRN PRN PRN Reason: help stop bleeding from site Gentamicin Sulfate (Gentamicin Inj) 20 mg OTHER WITH DIALYSIS PRN PRN Reason: Dwell Gentamycin Lock Heparin Sodium (Porcine) (Heparin Inj) 8,000 units OTHER WITH DIALYSIS PRN PRN Reason: for machine prime Heparin Sodium (Porcine) (Heparin Inj) 1,000 units OTHER WITH DIALYSIS PRN PRN Reason: Dwell Heparin to Fill Catheter Sodium Chloride (Ns Inj) 1,000 mls @ 70 mls/hr IV.CONT .[id number] [facility] Last Infusion: 06/24/18 13:45 Dose: 70 mls/hr Albumin Human (Flexbumin 25% Inj) 100 mls @ 60 mls/hr IV.SIG WITH DIALYSIS PRN PRN Reason: hypotension / volume replace Sodium Chloride (Ns Inj) 1,000 mls @ 0 mls/hr OTHER .Q0M PRN PRN Reason: for prime and rinse back Sodium Chloride (Ns Inj) 1,000 mls @ 200 mls/hr OTHER .Q5H PRN PRN Reason: for dialyzer flush PRN Sodium Chloride (Ns Inj) 1,000 mls @ 0 mls/hr IV.CONT .Q0M PRN PRN Reason: hypotension / volume replace Lactulose (Lactulose Liq) 30 ml PO DAILY PRN PRN Reason: SEVERE CONSITIPATION Mannitol (Mannitol Inj) 12.5 gm IV.PUSH UNSCH PRN PRN Reason: hypotension / volume replace Nitroglycerin (Nitrostat Sl) 0.4 mg SL Q5M PRN PRN Reason: CHEST PAIN Ondansetron HCl (Zofran Inj) 4 mg IV.PUSH UNSCH PRN PRN Reason: NAUSEA OR VOMITING Ondansetron HCl (Zofran Inj) 4 mg IV.PUSH Q6H PRN PRN Reason: NAUSEA OR VOMITING Senna/Docusate Sodium (Ramandeep-Colace) 1 tab PO BID [facility] Sennosides (Senokot) 17.2 mg PO Q12H PRN PRN Reason: Moderate Constipation Sodium Chloride (Ns Flush) 5 ml IV.FLUSH PRN PRN PRN Reason: flush each lumen during HD <Willam Lobo - 06/24/18 20:49> Active Medications Acetaminophen (Tylenol) 650 mg PO UNSCH PRN PRN Reason: SEE LABEL COMMENTS Aspirin (Ecotrin) 81 mg PO DAILY [facility] Last Admin: 06/24/18 09:25 Dose: 81 mg Clonidine HCl (Catapres) 0.1 mg PO UNSCH PRN PRN Reason: SEE LABEL COMMENTS Diphenhydramine HCl (Benadryl) 25 mg PO UNSCH PRN PRN Reason: SEE LABEL COMMENTS Epoetin Robel (Epogen Inj) 2,000 unit IV.PUSH UNSCH PRN PRN Reason: SEE LABEL COMMENTS Gelatin (Gelfoam 12 Mm/7 Mm Topical) 1 foam TOPICAL PRN PRN PRN Reason: help stop bleeding from site Gentamicin Sulfate (Gentamicin Inj) 20 mg OTHER WITH DIALYSIS PRN PRN Reason: Dwell Gentamycin Lock Heparin Sodium (Porcine) (Heparin Inj) 8,000 units OTHER WITH DIALYSIS PRN PRN Reason: for machine prime Heparin Sodium (Porcine) (Heparin Inj) 1,000 units OTHER WITH DIALYSIS PRN PRN Reason: Dwell Heparin to Fill Catheter Sodium Chloride (Ns Inj) 1,000 mls @ 70 mls/hr IV.CONT .[id number] [facility] Last Admin: 06/24/18 07:55 Dose: 70 mls/hr Albumin Human (Flexbumin 25% Inj) 100 mls @ 60 mls/hr IV.SIG WITH DIALYSIS PRN PRN Reason: hypotension / volume replace Sodium Chloride (Ns Inj) 1,000 mls @ 0 mls/hr OTHER .Q0M PRN PRN Reason: for prime and rinse back Sodium Chloride (Ns Inj) 1,000 mls @ 200 mls/hr OTHER .Q5H PRN PRN Reason: for dialyzer flush PRN Sodium Chloride (Ns Inj) 1,000 mls @ 0 mls/hr IV.CONT .Q0M PRN PRN Reason: hypotension / volume replace Mannitol (Mannitol Inj) 12.5 gm IV.PUSH UNSCH PRN PRN Reason: hypotension / volume replace Nitroglycerin (Nitrostat Sl) 0.4 mg SL Q5M PRN PRN Reason: CHEST PAIN Ondansetron HCl (Zofran Inj) 4 mg IV.PUSH UNSCH PRN PRN Reason: NAUSEA OR VOMITING Sodium Chloride (Ns Flush) 5 ml IV.FLUSH PRN PRN PRN Reason: flush each lumen during HD <Meghan Kothari - 06/24/18 11:02> Exam Vital signs: Vital Signs 06/24/18 07:45 06/24/18 07:46 06/24/18 08:33 Temperature Pulse Rate 70 70 Respiratory Rate 16 20 Blood Pressure 116/62 106/61 Pulse Oximetry 99 99 06/24/18 09:09 06/24/18 10:10 06/24/18 13:00 Temperature Pulse Rate 64 70 Respiratory Rate 18 16 Blood Pressure 111/65 124/67 Pulse Oximetry 99 100 06/24/18 13:12 06/24/18 17:00 06/24/18 19:40 Temperature 98 F 98 F Pulse Rate 64 69 61 Respiratory Rate 18 18 18 Blood Pressure 124/67 119/57 L 98/57 L Pulse Oximetry 96 93 L 97 Intake & Output 06/24/18 06/24/18 06/25/18 06:59 18:59 06:59 Intake Total 800 / 800 Output Total 1200 / 1200 Balance -400 / -400 Weight 100.1 kg Intake: IV 800 / 800 NS Inj 1,000 ML @ 70 mls/hr IV. 700 / 700 CONT .[id number] ROLANDA Rx#:[id number] Rocephin Inj 1,000 MG In NS Inj 100 / 100 100 ML @ 200 mls/hr IV.SIG ONCE ONE Rx#:[id number] Output: Hemodialysis Amount 1000 / 1000 Urine Amount (Catheter) 200 / 200 Straight 200 / 200 Other: Date of Last Bowel Movement 06/24/18 # Bowel Movements 1 Weight On Admission 100.1 kg <Willam Lobo - 06/24/18 20:49> Vital Signs 06/24/18 07:45 06/24/18 07:46 06/24/18 08:33 Pulse Rate 70 70 Respiratory Rate 16 20 Blood Pressure 116/62 106/61 Pulse Oximetry 99 99 06/24/18 09:09 06/24/18 10:10 Pulse Rate 64 Respiratory Rate 18 Blood Pressure 111/65 Pulse Oximetry 99 100 Intake & Output 06/23/18 06/24/18 06/24/18 18:59 06:59 18:59 Output Total 200 / 200 Balance -200 / -200 Weight 100.1 kg Output: Urine Amount (Catheter) 200 / 200 Straight 200 / 200 <Meghan Kothari - 06/24/18 11:02> Narrative: General: This is a well appearing male in [facility]. HEENT: Dry oral mucosa. Mental status: patient is alert, awake, and oriented to person, place but not time. Believes he is in the year 2019. Speech is muffled and slow. Slightly slurred but comprehendible. CVS: Distant heart sounds, regular rate and rhythm, no murmurs. 2+ peripheral pulses in the upper and lower extremities bilaterally. No Pedal edema appreciated bilaterally. Respiratory: Anterior auscultation, clear bilaterally. Abdomen: Soft, nontender, bowel sounds present. CN: 2-12 intact Motor: No pronator drift of out stretched arms. Muscle Bulk and tone are normal in the Upper and Lower Ext. Strength is 5/5 in upper and lower extremities bilaterally. Sensory: Sensation of light touch in upper and lower extremities intact bilaterally. <Meghan Kothari - 06/24/18 11:52> Results - Labs Result diagrams: 06/24/18 07:51 <Willam Lobo - 06/24/18 20:49> Abnormal lab results 06/24/18 06/24/18 06/24/18 Range/Units 07:51 07:51 07:51 WBC 11.3 H (4.0-11.0) th/mm3 RBC 3.28 L (4.50-5.90) mil/mm3 Hgb 10.8 L (13.0-17.0) gm/dL POC Hgb (Calc) 10.5 L (13.0-17.0) g/dL Hct 33.2 L (39.0-51.0) % POC Hct 31.0 L (39-51.0) % MCV 101.4 H (80.0-100.0) fL Neut % (Auto) 80.0 H (16.0-70.0) % Mcminn % (Auto) 9.7 H (0.0-8.0) % Neut # (Auto) 9.0 H (1.8-7.7) th/mm3 Mcminn # (Auto) 1.1 H (0.0-0.9) th/mm3 PT 12.9 H (9.8-11.6) sec Fibrinogen 459 H (227-377) mg/dL ABG pCO2 (38-42) mmHg Hemoglobin (12.0-16.0) G/DL POC BUN 37 H (5-21) mg/dL POC Creatinine 5.3 H (0.6-1.3) mg/dL Ammonia (11-32) mcmol/L Troponin I Less than 0.02 L (0.02-0.05) ng/mL Folate (3.1-17.5) ng/mL Urine Clarity (Clear) Ur Leukocyte Esterase (Negative) Urine WBC (0-5) /hpf Amorphous Sediment (None) /hpf Urine Bacteria (None) /hpf Urine Mucus (Occasional) /lpf U Benzodiazepines Scrn (Neg) 06/24/18 06/24/18 06/24/18 Range/Units 08:30 08:40 09:00 WBC (4.0-11.0) th/mm3 RBC (4.50-5.90) mil/mm3 Hgb (13.0-17.0) gm/dL POC Hgb (Calc) (13.0-17.0) g/dL Hct (39.0-51.0) % POC Hct (39-51.0) % MCV (80.0-100.0) fL Neut % (Auto) (16.0-70.0) % Mcminn % (Auto) (0.0-8.0) % Neut # (Auto) (1.8-7.7) th/mm3 Mcminn # (Auto) (0.0-0.9) th/mm3 PT (9.8-11.6) sec Fibrinogen (227-377) mg/dL ABG pCO2 36 L (38-42) mmHg Hemoglobin 9.9 L (12.0-16.0) G/DL POC BUN (5-21) mg/dL POC Creatinine (0.6-1.3) mg/dL Ammonia Less than 10 L (11-32) mcmol/L Troponin I (0.02-0.05) ng/mL Folate (3.1-17.5) ng/mL Urine Clarity (Clear) Ur Leukocyte Esterase (Negative) Urine WBC (0-5) /hpf Amorphous Sediment (None) /hpf Urine Bacteria (None) /hpf Urine Mucus (Occasional) /lpf U Benzodiazepines Scrn Pos H (Neg) 06/24/18 06/24/18 Range/Units 09:00 11:35 WBC (4.0-11.0) th/mm3 RBC (4.50-5.90) mil/mm3 Hgb (13.0-17.0) gm/dL POC Hgb (Calc) (13.0-17.0) g/dL Hct (39.0-51.0) % POC Hct (39-51.0) % MCV (80.0-100.0) fL Neut % (Auto) (16.0-70.0) % Mcminn % (Auto) (0.0-8.0) % Neut # (Auto) (1.8-7.7) th/mm3 Mcminn # (Auto) (0.0-0.9) th/mm3 PT (9.8-11.6) sec Fibrinogen (227-377) mg/dL ABG pCO2 (38-42) mmHg Hemoglobin (12.0-16.0) G/DL POC BUN (5-21) mg/dL POC Creatinine (0.6-1.3) mg/dL Ammonia (11-32) mcmol/L Troponin I (0.02-0.05) ng/mL Folate Greater than 20.0 H (3.1-17.5) ng/mL Urine Clarity Hazy H (Clear) Ur Leukocyte Esterase Trace H (Negative) Urine WBC 11 H (0-5) /hpf Amorphous Sediment Rare H (None) /hpf Urine Bacteria Occasional H (None) /hpf Urine Mucus Few H (Occasional) /lpf U Benzodiazepines Scrn (Neg) Short CBC 06/24/18 Range/Units 07:51 WBC 11.3 H (4.0-11.0) th/mm3 Hgb 10.8 L (13.0-17.0) gm/dL Hct 33.2 L (39.0-51.0) % Plt Count 169 (150-450) th/mm3 Cardiac Enzymes 06/24/18 Range/Units 07:51 Total Creatine Kinase 187 (39-308) U/L Troponin I Less than 0.02 L (0.02-0.05) ng/mL Urine 06/24/18 Range/Units 09:00 Urine Color Yellow (Yellw/Straw) Urine Clarity Hazy H (Clear) Urine pH 5.0 (5.0-8.5) Ur Specific Talent 1.013 (1.002-1.035) Urine Protein Negative (Neg-Trace) mg/dL Urine Glucose (UA) Negative (Negative) mg/dL <Willam Lobo K - 06/24/18 20:49> Abnormal lab results 06/24/18 06/24/18 06/24/18 Range/Units 07:51 07:51 07:51 WBC 11.3 H (4.0-11.0) th/mm3 RBC 3.28 L (4.50-5.90) mil/mm3 Hgb 10.8 L (13.0-17.0) gm/dL POC Hgb (Calc) 10.5 L (13.0-17.0) g/dL Hct 33.2 L (39.0-51.0) % POC Hct 31.0 L (39-51.0) % MCV 101.4 H (80.0-100.0) fL Neut % (Auto) 80.0 H (16.0-70.0) % Mcminn % (Auto) 9.7 H (0.0-8.0) % Neut # (Auto) 9.0 H (1.8-7.7) th/mm3 Mcminn # (Auto) 1.1 H (0.0-0.9) th/mm3 PT 12.9 H (9.8-11.6) sec Fibrinogen 459 H (227-377) mg/dL ABG pCO2 (38-42) mmHg Hemoglobin (12.0-16.0) G/DL POC BUN 37 H (5-21) mg/dL POC Creatinine 5.3 H (0.6-1.3) mg/dL Ammonia (11-32) mcmol/L Troponin I Less than 0.02 L (0.02-0.05) ng/mL Urine Clarity (Clear) Ur Leukocyte Esterase (Negative) Urine WBC (0-5) /hpf Amorphous Sediment (None) /hpf Urine Bacteria (None) /hpf Urine Mucus (Occasional) /lpf U Benzodiazepines Scrn (Neg) 06/24/18 06/24/18 06/24/18 Range/Units 08:30 08:40 09:00 WBC (4.0-11.0) th/mm3 RBC (4.50-5.90) mil/mm3 Hgb (13.0-17.0) gm/dL POC Hgb (Calc) (13.0-17.0) g/dL Hct (39.0-51.0) % POC Hct (39-51.0) % MCV (80.0-100.0) fL Neut % (Auto) (16.0-70.0) % Mcminn % (Auto) (0.0-8.0) % Neut # (Auto) (1.8-7.7) th/mm3 Mcminn # (Auto) (0.0-0.9) th/mm3 PT (9.8-11.6) sec Fibrinogen (227-377) mg/dL ABG pCO2 36 L (38-42) mmHg Hemoglobin 9.9 L (12.0-16.0) G/DL POC BUN (5-21) mg/dL POC Creatinine (0.6-1.3) mg/dL Ammonia Less than 10 L (11-32) mcmol/L Troponin I (0.02-0.05) ng/mL Urine Clarity (Clear) Ur Leukocyte Esterase (Negative) Urine WBC (0-5) /hpf Amorphous Sediment (None) /hpf Urine Bacteria (None) /hpf Urine Mucus (Occasional) /lpf U Benzodiazepines Scrn Pos H (Neg) 06/24/18 Range/Units 09:00 WBC (4.0-11.0) th/mm3 RBC (4.50-5.90) mil/mm3 Hgb (13.0-17.0) gm/dL POC Hgb (Calc) (13.0-17.0) g/dL Hct (39.0-51.0) % POC Hct (39-51.0) % MCV (80.0-100.0) fL Neut % (Auto) (16.0-70.0) % Mcminn % (Auto) (0.0-8.0) % Neut # (Auto) (1.8-7.7) th/mm3 Mcminn # (Auto) (0.0-0.9) th/mm3 PT (9.8-11.6) sec Fibrinogen (227-377) mg/dL ABG pCO2 (38-42) mmHg Hemoglobin (12.0-16.0) G/DL POC BUN (5-21) mg/dL POC Creatinine (0.6-1.3) mg/dL Ammonia (11-32) mcmol/L Troponin I (0.02-0.05) ng/mL Urine Clarity Hazy H (Clear) Ur Leukocyte Esterase Trace H (Negative) Urine WBC 11 H (0-5) /hpf Amorphous Sediment Rare H (None) /hpf Urine Bacteria Occasional H (None) /hpf Urine Mucus Few H (Occasional) /lpf U Benzodiazepines Scrn (Neg) Short CBC 06/24/18 Range/Units 07:51 WBC 11.3 H (4.0-11.0) th/mm3 Hgb 10.8 L (13.0-17.0) gm/dL Hct 33.2 L (39.0-51.0) % Plt Count 169 (150-450) th/mm3 Cardiac Enzymes 06/24/18 Range/Units 07:51 Total Creatine Kinase 187 (39-308) U/L Troponin I Less than 0.02 L (0.02-0.05) ng/mL Urine 06/24/18 Range/Units 09:00 Urine Color Yellow (Yellw/Straw) Urine Clarity Hazy H (Clear) Urine pH 5.0 (5.0-8.5) Ur Specific Talent 1.013 (1.002-1.035) Urine Protein Negative (Neg-Trace) mg/dL Urine Glucose (UA) Negative (Negative) mg/dL <Meghan Kothari - 06/24/18 11:02> - Imaging Impressions Head MRI 06/24/18 00:00 CONCLUSION: 1. No acute abnormality seen. No areas of infarction are seen on the diffusion- weighted images. 2. Mild cortical atrophy with widening of the sulci. Chest X-Ray 06/24/18 07:47 CONCLUSION: Expiratory chest x-ray without definite acute cardiopulmonary process. Head CT 06/24/18 07:47 CONCLUSION: 1. No acute intracranial abnormality. 2. Mild age-related atrophy. Report was called by Dr. Javed to Dr. Rodgers at 8:10 AM. Head CTA 06/24/18 07:47 CONCLUSION: Negative CTA. Report was called by [Dr. Javed to Dr. Bryant at 8:48 AM.] Neck CTA 06/24/18 07:47 CONCLUSION: Calcified plaque at the left carotid bulb region. However, a significant stenosis is not seen throughout the study. CT CAD 06/24/18 07:50 CONCLUSION: Physiological brain perfusion parameters with RAPID analysis as above. The decision for consideration of therapy is multi factorial and multi disciplinary relying on subjective and objective clinical data. This data is not construed or intended to be the sole determinant of treatment eligibility. <Willam Lobo - 06/24/18 20:49> Impressions Head MRI 06/24/18 00:00 CONCLUSION: 1. No acute abnormality seen. No areas of infarction are seen on the diffusion- weighted images. 2. Mild cortical atrophy with widening of the sulci. Chest X-Ray 06/24/18 07:47 CONCLUSION: Expiratory chest x-ray without definite acute cardiopulmonary process. Head CT 06/24/18 07:47 CONCLUSION: 1. No acute intracranial abnormality. 2. Mild age-related atrophy. Report was called by Dr. Javed to Dr. Rodgers at 8:10 AM. Head CTA 06/24/18 07:47 CONCLUSION: Negative CTA. Report was called by [Dr. Javed to Dr. Bryant at 8:48 AM.] Neck CTA 06/24/18 07:47 CONCLUSION: Calcified plaque at the left carotid bulb region. However, a significant stenosis is not seen throughout the study. CT CAD 06/24/18 07:50 CONCLUSION: Physiological brain perfusion parameters with RAPID analysis as above. The decision for consideration of therapy is multi factorial and multi disciplinary relying on subjective and objective clinical data. This data is not construed or intended to be the sole determinant of treatment eligibility. <Meghan Kothari - 06/24/18 11:02> Prasadrini VTE Risk Assessment Caprini VTE Risk Assessment: Moderate/High Risk (score >= 2) <Meghan Kothari - 06/24/18 11:37> Caprini Risk Assessment Model: Point Value = 1 Point Value = 2 Point Value = 3 Point Value = 5 Age 41-60 Minor surgery BMI > 25 kg/m2 Swollen legs Varicose veins or History of unexplained or recurrent spontaneous Oral contraceptives or hormone replacement Sepsis (< 1 month) Serious lung disease, including pneumonia (< 1 month) Abnormal pulmonary function Acute myocardial infarction Congestive heart failure (< 1 month) History of inflammatory bowel disease Medical patient at bed rest Age 61-74 Arthroscopic surgery Major open surgery (> 45 min) Laparoscopic surgery (> 45 min) Malignancy Confined to bed (> 72 hours) Immobilizing plaster cast Central venous access Age >= 75 History of VTE Family history of VTE Factor V Leiden Prothrombin [id number] Lupus anticoagulant Anticardiolipin antibodies Elevated serum homocysteine Heparin-induced thrombocytopenia Other congenital or acquired thrombophilia Stroke (< 1 month) Elective arthroplasty Hip, pelvis, or leg fracture Acute spinal cord injury (< 1 month) <Willam Lobo - 06/24/18 20:49> Point Value = 1 Point Value = 2 Point Value = 3 Point Value = 5 Age 41-60 Minor surgery BMI > 25 kg/m2 Swollen legs Varicose veins or History of unexplained or recurrent spontaneous Oral contraceptives or hormone replacement Sepsis (< 1 month) Serious lung disease, including pneumonia (< 1 month) Abnormal pulmonary function Acute myocardial infarction Congestive heart failure (< 1 month) History of inflammatory bowel disease Medical patient at bed rest Age 61-74 Arthroscopic surgery Major open surgery (> 45 min) Laparoscopic surgery (> 45 min) Malignancy Confined to bed (> 72 hours) Immobilizing plaster cast Central venous access Age >= 75 History of VTE Family history of VTE Factor V Leiden Prothrombin [id number] Lupus anticoagulant Anticardiolipin antibodies Elevated serum homocysteine Heparin-induced thrombocytopenia Other congenital or acquired thrombophilia Stroke (< 1 month) Elective arthroplasty Hip, pelvis, or leg fracture Acute spinal cord injury (< 1 month) <Meghan Kothari - 06/24/18 11:37> Prophylaxis Regimen: Total Risk Factor Score Risk Level Prophylaxis Regimen 0-1 Low Early ambulation 2 Moderate Order ONE of the following: *Sequential Compression Device (SCD) *Heparin 5000 units SQ BID 3-4 Higher Order ONE of the following medications: *Heparin 5000 units SQ TID *Enoxaparin/Lovenox 40 mg SQ daily (WT < 150 kg, CrCl > 30 mL/min) *Enoxaparin/Lovenox 30 mg SQ daily (WT < 150 kg, CrCl > 10-29 mL/min) *Enoxaparin/Lovenox 30 mg SQ BID (WT < 150 kg, CrCl > 30 mL/min) AND/OR *Sequential Compression Device (SCD) 5 or more Highest Order ONE of the following medications: *Heparin 5000 units SQ TID (Preferred with Epidurals) *Enoxaparin/Lovenox 40 mg SQ daily (WT < 150 kg, CrCl > 30 mL/min) *Enoxaparin/Lovenox 30 mg SQ daily (WT < 150 kg, CrCl > 10-29 mL/min) *Enoxaparin/Lovenox 30 mg SQ BID (WT < 150 kg, CrCl > 30 mL/min) AND *Sequential Compression Device (SCD) <Willam Lobo - 06/24/18 20:49> Total Risk Factor Score Risk Level Prophylaxis Regimen 0-1 Low Early ambulation 2 Moderate Order ONE of the following: *Sequential Compression Device (SCD) *Heparin 5000 units SQ BID 3-4 Higher Order ONE of the following medications: *Heparin 5000 units SQ TID *Enoxaparin/Lovenox 40 mg SQ daily (WT < 150 kg, CrCl > 30 mL/min) *Enoxaparin/Lovenox 30 mg SQ daily (WT < 150 kg, CrCl > 10-29 mL/min) *Enoxaparin/Lovenox 30 mg SQ BID (WT < 150 kg, CrCl > 30 mL/min) AND/OR *Sequential Compression Device (SCD) 5 or more Highest Order ONE of the following medications: *Heparin 5000 units SQ TID (Preferred with Epidurals) *Enoxaparin/Lovenox 40 mg SQ daily (WT < 150 kg, CrCl > 30 mL/min) *Enoxaparin/Lovenox 30 mg SQ daily (WT < 150 kg, CrCl > 10-29 mL/min) *Enoxaparin/Lovenox 30 mg SQ BID (WT < 150 kg, CrCl > 30 mL/min) AND *Sequential Compression Device (SCD) <Meghan Kothari - 06/24/18 11:02> Assessment and Plan - Assessment (1) Altered mental status Code(s): R41.82 - Altered mental status, unspecified Status: Acute (2) UTI (urinary tract infection) Code(s): N39.0 - Urinary tract infection, site not specified Status: Acute (3) ESRD (end stage renal disease) on dialysis Code(s): N18.6 - End stage renal disease; Z99.2 - Dependence on renal dialysis Status: Acute (4) Speech abnormality Code(s): R47.9 - Unspecified speech disturbances Status: Acute (5) Hypertension Code(s): I10 - Essential (primary) hypertension Status: Acute (6) Abstinence from alcohol Code(s): Z78.9 - Other specified health status Status: Acute (7) H/O eye surgery Code(s): Z98.890 - Other specified postprocedural states Status: Acute (8) DVT prophylaxis Status: Acute (9) Nutrition, metabolism, and development symptoms Code(s): R63.8 - Other symptoms and signs concerning food and fluid intake Status: Acute <Willam Lobo - 06/24/18 20:49> (1) Altered mental status Code(s): R41.82 - Altered mental status, unspecified Status: Acute Plan: DDX: Stroke vs hypotension vs infectious etiology vs anemia vs electrolyte abnormalities vs Polypharmacy - CMP unremarkable. Elevated Cr and BUN due to CKD. - Stroke workup: Head Ct, CTA, Neck CTA, CT CAD negative. - CBC shows macrocytic anemia. MCV: 101.4. Consider B12 or folate deficiency. Will order B12/Folate Level. - Urine culture shows trace leukocyte esterase, elevated WBC. Received one dose of Rocephin in ED. - Will continue with Rocephin and switch antibiotics once sensitivities return. - Continue to monitor blood pressures. Patient oral mucosa dry on Physical exam. Delicate with fluid replacement due to CKD. Appreciate nephrology recommendations with fluid status. Will hold Carvedilol and Tamsulosin. -UDS positive for benzodiazepines, could possibly be a factor in altered mental status. Hold Zolpidem. -Neurochecks every 4 hours. Will contact for further information. (2) UTI (urinary tract infection) Code(s): N39.0 - Urinary tract infection, site not specified Status: Acute Plan: Continue on Rocephin 1 g IV daily. (3) ESRD (end stage renal disease) on dialysis Code(s): N18.6 - End stage renal disease; Z99.2 - Dependence on renal dialysis Status: Acute Plan: Consult to nephrology. Appreciate recommendations. Continue with dialysis as scheduled. Vascular consulted for fistula recheck tomorrow. (4) Speech abnormality Code(s): R47.9 - Unspecified speech disturbances Status: Acute Plan: Speech seems to be improving compared to ED presentation. Continue to monitor. (5) Hypertension Code(s): I10 - Essential (primary) hypertension Status: Acute Plan: Patient currently not hypertensive. Will Hold Carvedilol due to hypotension. Continue to monitor. (6) Abstinence from alcohol Code(s): Z78.9 - Other specified health status Status: Acute Plan: Past history of alcohol abuse. Continue to monitor. Consider CIWA protocol. (7) H/O eye surgery Code(s): Z98.890 - Other specified postprocedural states Status: Acute Plan: Continue home eye drops (8) DVT prophylaxis Status: Acute Plan: SCDs. (9) Nutrition, metabolism, and development symptoms Code(s): R63.8 - Other symptoms and signs concerning food and fluid intake Status: Acute Plan: Fluids: Referred to nephrology due to dialysis. Electrolytes: Monitor and replete as needed. Nutrition: N.p.o. Swallow Eval ordered. Will switch to Regular if Altered Mental Status improves. <Meghan Kothari - 06/24/18 18:24> - Assessment and Plan 73-year-old male presents with altered mental status secondary to a possible fall. Stroke workup negative. Slurred and Slowed speech. Alert and oriented. Neuro Exam unremarkable. Nephrology Consulted. Treating for UTI. Monitoring BPs for Hypotension. Macrocytic Anemia Workup. <Meghan Kothari - 06/24/18 18:24> - Attending Attestation The exam, history, and the medical decision-making described in the above note were completed with the assistance of the resident physician. I reviewed and agree with the findings presented. I attest that I had a [id number] encounter with the patient on the same day, and personally performed and documented my assessment and findings in the medical record. The exam, history, and the medical decision-making described in the above note were completed with the assistance of the resident physician. I reviewed and agree with the findings presented. I attest that I had a [id number] encounter with the patient on the same day, and personally performed and documented my assessment and findings in the medical record. S: 73 yo M brought to hospital after being found down this AM. He was altered with slurred speech in ED and had stroke work up and initial neurology eval in ED. Nephrology was consulted for urgent dialysis and I saw him immediately after dialysis and he was mentating very well. He does not remember coming to the hospital. The last he remembers for me is that he was having trouble sleeping and as story progressed he went from saying he took one sleeping pill to saying that he remembered progressively taking more meds throughout the night. he took at least two ambiens and at least two OTC sleeping pills and then the next thing he knew he was waking up in the ED. O: Agree with resident exam as noted in their H&P. Vital Signs - 8 hr 06/24/18 08:33 06/24/18 09:09 06/24/18 10:10 Pulse Rate 70 64 Respiratory Rate 20 18 Blood Pressure 106/61 111/65 Pulse Oximetry 99 99 100 06/24/18 13:00 06/24/18 13:12 Pulse Rate 70 64 Respiratory Rate 16 18 Blood Pressure 124/67 124/67 Pulse Oximetry 96 also Gen : NAD, AAO X3 HEENT: MMM, EOMI, PERRL, thyroid scar CV/chest : RRR, good perfusion, port in place, + fistula Pulm: CTAB, no increased effort or adventitous sounds Abd: ntnd + BS Ext: no edema, no cyanosis skin: no rash, warm dry not mottled neuro: no focal deficity, speech fluent. A/P: Agree with resident note 1. Encephalopathy: suspect this was an accidental sleeping medicine overdose by history as this is what he remembers and was cleared immediately with dialysis. Didnt seem uremic enough for this. I dont think he would have responded that quickly to rocephin in ED. 2. abnormal UA: already had rocephin, will transtion to PO until cultures return. 3. ESRD: just had dialysis, nephrology consulted. Also, he was planning to have his vascular surgeon assess his fistula tomorrow here at [facility], so will discuss with them, observe overnight for above and possibly let him go after this eval in AM or for it. cont home meds 4. Anema: cont epo, likely 2/2 above. 5. Cont home meds as tolerated for: HTN, recent eye surgery, cirrhosis, PUD, BPH. will monitor BP closely in conjunction with nephrology. <Willam Lobo - 06/24/18 20:49>
--- NOTE | 2018-06-24 11:25 | P.CONNP ---
History of Present Illness Service: Nephrology Consult date: 06/24/18 Requesting Physician: Hailey Rodgers Reason for Consult: ESRD need dialysis Primary Care Provider: UNKNOWN Chief Complaint: AMS History of Present Illness: patient is a 73 year old white male with cirrhosis, hypertension, ESRD has Permcath , he didn't complete his dialysis, he was found in AMS on the floor, he is a poor historian, his speech was altered as well, he was brought as stroke alert and had MRI no contrast then subsequently he had CTA cerebral, neck area and contrast was used, he required dialysis after the procedure, he is sleepy denies dizziness, speech has improved. Review of Systems unobtainable due to mental status PMFSH - History History Provided By: Patient, Medical Record, Customer Support Agent / EMT - Medical History Medical History: Medical History (Last Reviewed 06/24/18 @ 11:20 by Morales Shirley MD) Cirrhosis AV fistula Arthritis Duodenal ulcer Gout Hypertension Hypertension, well controlled Joint pain Vascular dialysis catheter in place - Surgical History Surgical History: Surgical History (Last Reviewed 06/24/18 @ 11:20 by Morales Shirley MD) History of back surgery History of cataract extraction with lens replacement - Social History I have reviewed the patient's Social History: Yes - Tobacco History Second Hand Smoke Exposure: No Smoking Status: Cognitive impairment - Alcohol History How Often Do You Have a Drink Containing Alcohol: Unable to Obtain - Substance Use History Substance History: Unable to Obtain - Travel History Recent Travel in the [place] Within the Last 8 Weeks: No Recent Travel Out of the Country Within the Last 8 Weeks: No - Immunization History Tetanus Immunization: Unable to Assess Medications and Allergies Active Medications: Active Medications Acetaminophen (Tylenol) 650 mg PO UNSCH PRN PRN Reason: SEE LABEL COMMENTS Acetaminophen (Tylenol) 650 mg PO Q4H PRN PRN Reason: Temp > 100.4 Al Hydroxide/Mg Hydroxide (Milk Of Magnesia Liq) 30 ml PO Q12H PRN PRN Reason: Mild Constipation Aspirin (Ecotrin) 81 mg PO DAILY ROLANDA Last Admin: 06/24/18 09:25 Dose: 81 mg Bisacodyl (Dulcolax Supp) 10 mg RECTAL DAILY PRN PRN Reason: SEVERE CONSITIPATION Clonidine HCl (Catapres) 0.1 mg PO UNSCH PRN PRN Reason: SEE LABEL COMMENTS Diphenhydramine HCl (Benadryl) 25 mg PO UNSCH PRN PRN Reason: SEE LABEL COMMENTS Epoetin Robel (Epogen Inj) 2,000 unit IV.PUSH UNSCH PRN PRN Reason: SEE LABEL COMMENTS Gelatin (Gelfoam 12 Mm/7 Mm Topical) 1 foam TOPICAL PRN PRN PRN Reason: help stop bleeding from site Gentamicin Sulfate (Gentamicin Inj) 20 mg OTHER WITH DIALYSIS PRN PRN Reason: Dwell Gentamycin Lock Heparin Sodium (Porcine) (Heparin Inj) 8,000 units OTHER WITH DIALYSIS PRN PRN Reason: for machine prime Heparin Sodium (Porcine) (Heparin Inj) 1,000 units OTHER WITH DIALYSIS PRN PRN Reason: Dwell Heparin to Fill Catheter Sodium Chloride (Ns Inj) 1,000 mls @ 70 mls/hr IV.CONT .[id number] ROLANDA Last Admin: 06/24/18 07:55 Dose: 70 mls/hr Albumin Human (Flexbumin 25% Inj) 100 mls @ 60 mls/hr IV.SIG WITH DIALYSIS PRN PRN Reason: hypotension / volume replace Sodium Chloride (Ns Inj) 1,000 mls @ 0 mls/hr OTHER .Q0M PRN PRN Reason: for prime and rinse back Sodium Chloride (Ns Inj) 1,000 mls @ 200 mls/hr OTHER .Q5H PRN PRN Reason: for dialyzer flush PRN Sodium Chloride (Ns Inj) 1,000 mls @ 0 mls/hr IV.CONT .Q0M PRN PRN Reason: hypotension / volume replace Lactulose (Lactulose Liq) 30 ml PO DAILY PRN PRN Reason: SEVERE CONSITIPATION Mannitol (Mannitol Inj) 12.5 gm IV.PUSH UNSCH PRN PRN Reason: hypotension / volume replace Nitroglycerin (Nitrostat Sl) 0.4 mg SL Q5M PRN PRN Reason: CHEST PAIN Ondansetron HCl (Zofran Inj) 4 mg IV.PUSH UNSCH PRN PRN Reason: NAUSEA OR VOMITING Ondansetron HCl (Zofran Inj) 4 mg IV.PUSH Q6H PRN PRN Reason: NAUSEA OR VOMITING Senna/Docusate Sodium (Ramandeep-Colace) 1 tab PO BID [facility] Sennosides (Senokot) 17.2 mg PO Q12H PRN PRN Reason: Moderate Constipation Sodium Chloride (Ns Flush) 5 ml IV.FLUSH PRN PRN PRN Reason: flush each lumen during HD Allergies Allergy/AdvReac Type Severity Reaction Status Date / Time vancomycin Allergy Severe n/a Verified 06/20/18 12:00 Home Medications Medication Instructions Recorded Confirmed Type B complex-vitamin C-folic acid 1 tab PO DAILY 03/26/18 06/24/18 History [Nephro-Andres] allopurinol 100 mg PO Q3W 03/26/18 06/24/18 History carvedilol 25 mg PO BID 03/26/18 06/24/18 History gabapentin 300 mg PO DAILY 03/26/18 06/24/18 History tamsulosin 0.4 mg PO DAILY 03/26/18 06/24/18 History tramadol 50 mg PO BID 03/26/18 06/24/18 History zolpidem 10 mg PO HS PRN 03/26/18 06/24/18 History Exam Vital signs: Vital Signs 06/24/18 07:45 06/24/18 07:46 06/24/18 08:33 Pulse Rate 70 70 Respiratory Rate 16 20 Blood Pressure 116/62 106/61 Pulse Oximetry 99 99 06/24/18 09:09 06/24/18 10:10 Pulse Rate 64 Respiratory Rate 18 Blood Pressure 111/65 Pulse Oximetry 99 100 Intake & Output 06/23/18 06/24/18 06/24/18 18:59 06:59 18:59 Output Total 200 / 200 Balance -200 / -200 Weight 100.1 kg Output: Urine Amount (Catheter) 200 / 200 Straight 200 / 200 Narrative: GENERAL: Well-nourished, well-developed patient. SKIN: Warm and dry. HEAD: Normocephalic. EYES: No scleral icterus. No injection or drainage. NECK: Supple, trachea midline. No JVD or lymphadenopathy. CARDIOVASCULAR: Regular rate and rhythm without murmurs, gallops, or rubs. RESPIRATORY: Breath sounds equal bilaterally. No accessory muscle use. GASTROINTESTINAL: Abdomen soft, non-tender, distended. EXTREMITIES: mild edema NEUROLOGICAL: sleeping but open eyes, becomes alert then fall back to sleep, and confused Results - Lab Results 06/24/18 07:51 Most recent lab results ABG pH 7.42 (7.380-7.420) 06/24/18 08:30 ABG pCO2 36 mmHg (38-42) L 06/24/18 08:30 ABG pO2 104 mmHg (61-120) 06/24/18 08:30 ABG HCO3 23 mmol/L (22-26) 06/24/18 08:30 Phosphorus 4.5 mg/dL (2.5-4.9) 06/24/18 09:00 Magnesium 1.9 mg/dL (1.5-2.5) 06/24/18 09:00 Assessment and Plan - Assessment (1) ESRD (end stage renal disease) on dialysis Code(s): N18.6 - End stage renal disease; Z99.2 - Dependence on renal dialysis Status: Acute (2) Altered mental status Code(s): R41.82 - Altered mental status, unspecified Status: Acute (3) UTI (urinary tract infection) Code(s): N39.0 - Urinary tract infection, site not specified Status: Acute (4) Hypertension Code(s): I10 - Essential (primary) hypertension Status: Acute - Plan ESRD On HD with AMS: Seen during hemodialysis UF 1 L as tolerates low BP AMS Use of Dye 100 ml on dialysis patient CTA was negative encephalopathy likely metabolic Cirrhosis checked Ammonia was less than 10 Question of UTI received ceftriaxone Dr. Salas to follow
--- NOTE | 2018-06-24 11:44 | MB ---
cc: Julio Bryant MD DATE: 06/24/2018 HISTORY OF PRESENT ILLNESS: This is a 73-year-old man who came in with change in mental status. He was last seen fine at 7 p.m. last night, found on the floor today, some dysarthric speech thought to be a stroke alert. Stroke alert was called. He was here in November with change in mental status, slid out of his wheelchair at home at that time, had some left shoulder pain. At that time, he was on lisinopril, Lasix, Allopurinol, Carvedilol, Protonix, Flexeril, Seroquel 25 b.i.d., Flomax, Neurontin every 8 hours, Oxycodone. He was found this morning on the floor, per the ambulance team, could not tell the year. He was called a stroke alert. HOME MEDICATIONS: 1. Zolpidem. 2. Tramadol 50 b.i.d. 3. Tamsulosin. 4. Gabapentin 300 a day. 5. Carvedilol. 6. Allopurinol. 7. Vitamin B. PAST MEDICAL HISTORY: From the chart: AV fistula, arthritis, ulcer, gout, hypertension, joint pain, dialysis. SOCIAL HISTORY: No history of abuse. Not a smoker or drinker. REVIEW OF SYSTEMS: Really unable to obtain from the patient. PHYSICAL EXAMINATION: GENERAL: He is in sinus rhythm 106/60, 120/70. NECK: There were no carotid bruits. HEART: Regular rate and rhythm, do not detect a murmur. NEUROLOGIC: The pupils are equal. His visual miranda are full. He can count fingers. Extraocular movements are intact. Face is symmetric. Tongue was midline. He generally moves all 4 extremities, the same weakly but he can move him pick his arms up off the bed and also keep his knees up off the bed. Toes downgoing bilaterally. His speech is a little bit slurred, slightly dysarthric, but he is barely awake right now and I would probably put the speech change more to his level of consciousness. LABORATORY DATA: White count 11.3, otherwise CBC is generally unremarkable. His creatinine is 5, BUN is 37. Blood gases pending, I just ordered that. Coags are pending. He had a CAT scan of the brain done, which was read as mild diffuse atrophy. Review of those films is normal, no major abnormality. He had a CTA and CT perfusion done. Those are pending. He had an MRI of his brain done in November of this year, which was normal. IMPRESSION: I am not convinced this is a stroke. As a matter of fact, I think is probably not a stroke. Probably more metabolic. We will check some blood work on him and see what the CTA shows. We can check an MRI, but I do not see any focality. He is able to name and follow commands well now, and I think is probably more metabolic. We will just treat him with an aspirin a day at this time. NIH Stroke Scale is 1. MD SARY [place]/rosendo , 08:39 AM , 08:46 AM
[2018-06-24 13:01] LABS: Vitamin B12 690 pg/mL (193-986)
[2018-06-24 13:02] LABS: Hepatitits B Surface Antigen Nonreactive (Nonreactive)
[2018-06-24 13:31] LABS: Hepatitis A IgM Antibody Nonreactive (Nonreactive)
--- NOTE | 2018-06-24 13:54 | ECG ---
Date Performed: 06/24/2018 Time Performed: 07:49:21 PTAGE: 73 years EKG: Sinus rhythm WITH FIRST DEGREE AV BLOCK SEPTAL MYOCARDIAL INFARCTION ABNORMAL ECG Since the PREVIOUS TRACING , no significant change noted PREVIOUS TRACIN12/04/2017 21.29 DOCTOR: Sanket Rosado Interpretating Date/Time 06/24/2018 13:52:44
--- NOTE | 2018-06-24 19:29 | MG ---
cc: Julio Bryant MD EEG NUMBER: [id number] INDICATIONS: Found on floor unconscious. MEDICATIONS: Aspirin, ceftriaxone. DESCRIPTION: Muscle activity was noted at the beginning of the recording, 8-10 Hz, 50 microvolts, symmetric posterior rhythm is noted and diffuse rhythm. No hemisphere asymmetries are noted. No epileptiform or seizure activity seen. Photic stimulation is performed without significant posterior driving. Hyperventilation is not performed. IMPRESSION: Normal awake EEG. No evidence for a focal or diffuse abnormality. Julio Bryant MD DJM/sj , 07:09 PM , 07:12 PM
[2018-06-24] MEDS: Senna/Docusate Sodium 8.6/50 MG Tablet PO SCH (22:53)
[2018-06-24] MEDS: Acetaminophen 325 MG Tablet PO PRN (22:53)
[2018-06-25] MEDS: Sod Chloride 0.9% Inj 1,000 ML IV.CONT SCH (01:12)
[2018-06-25] MEDS ORDERED: Chlorhexidine Gluconate 2% 1 Pack (2 Cloths) TOPICAL ONE ×2 (01:30→13:09)
[2018-06-25] MEDS ORDERED: Sodium Chlor 0.9% Inj 500 ML IV.CONT ONE (01:30)
[2018-06-25] MEDS ORDERED: Metoprolol Tartrate 25 MG Tablet PO ONE ×2 (02:08→13:09)
[2018-06-25] MEDS: Acetaminophen 325 MG Tablet PO PRN (06:34)
[2018-06-25 06:53] LABS: Baso % (Auto) 0.6 % (0.0-2.0); Eos # (Auto) 0.3 th/mm3 (0.0-0.4); Eos % (Auto) 3.4 % (0.0-4.0); Hematocrit 30.3 % (39.0-51.0); Lymph # (Auto) 1.3 th/mm3 (1.0-4.8); Lymph % (Auto) 17.1 % (9.0-44.0); Mean Corpuscular Hemoglobin 33.3 pg (27.0-34.0); Mean Corpuscular Volume 100.7 fL (80.0-100.0); Mean Platelet Volume 9.2 fL (7.0-11.0); Mono # (Auto) 0.6 th/mm3 (0.0-0.9); Mono % (Auto) 8.5 % (0.0-8.0); Neut # (Auto) 5.3 th/mm3 (1.8-7.7); Neut % (Auto) 70.4 % (16.0-70.0); Platelet Count 145 th/mm3 (150-450); Red Blood Count 3.01 mil/mm3 (4.50-5.90); Red Cell Distribution Width 16.2 % (11.6-17.2); White Blood Count 7.4 th/mm3 (4.0-11.0)
[2018-06-25 07:25] LABS: Albumin 3.1 g/dL (3.4-5.0); Calcium 7.1 mg/dL (8.5-10.1); Carbon Dioxide 26.7 meq/L (21.0-32.0); Potassium 4.1 meq/L (3.5-5.1); Total Protein 6.4 g/dL (6.4-8.2)
--- NOTE | 2018-06-25 07:40 | P.CONVS ---
History of Present Illness Service: Vascular Surgery Consult date: 06/26/18 Reason for Consult: ESRD Primary Care Provider: UNKNOWN Chief Complaint: AMS History of Present Illness: 73 yo male with L UE brachiobasilic AVF (1st stage) on 03/26/18. Was scheduled for elective 2nd stage TODAY but presented with AMS. Pt notes that he in essence "blacked out" without focal deficit. Feels normal now. Neuro work-up and cardiac work-up negative (CTA, MRI, cardiac enzymes). Feels great at present. He does note that his BP was very low at his regular HD session Sat morning prior to the event Sat afternoon. Review of Systems Constitutional: Denies chills, Denies fever(s) Cardiovascular: Denies chest pain PMFSH - History History Provided By: Patient, Medical Record, Transmission Specialist / EMT - Medical History Medical History: Medical History (Last Reviewed 06/25/18 @ 07:37 by Erik Singh MD) Cirrhosis AV fistula Arthritis Duodenal ulcer Gout Hypertension Hypertension, well controlled Joint pain Vascular dialysis catheter in place - Surgical History Surgical History: Surgical History (Last Reviewed 06/25/18 @ 07:37 by Erik Singh MD) History of back surgery History of cataract extraction with lens replacement - Tobacco History Second Hand Smoke Exposure: No Smoking Status: Cognitive impairment Tobacco Type: Cigarettes - Alcohol History How Often Do You Have a Drink Containing Alcohol: Unable to Obtain - Substance Use History Substance History: Unable to Obtain - Travel History Recent Travel in the [place] Within the Last 8 Weeks: No Recent Travel Out of the Country Within the Last 8 Weeks: No - Immunization History Tetanus Immunization: Unable to Assess Hx Influenza Vaccine This Season: Yes Medications and Allergies Active Medications: Active Medications Acetaminophen (Tylenol) 650 mg PO UNSCH PRN PRN Reason: SEE LABEL COMMENTS Acetaminophen (Tylenol) 650 mg PO Q4H PRN PRN Reason: Temp > 100.4 Last Admin: 06/25/18 06:34 Dose: 650 mg Al Hydroxide/Mg Hydroxide (Milk Of Magnesia Liq) 30 ml PO Q12H PRN PRN Reason: Mild Constipation Aspirin (Ecotrin) 81 mg PO DAILY ROLANDA Last Admin: 06/24/18 09:25 Dose: 81 mg Bisacodyl (Dulcolax Supp) 10 mg RECTAL DAILY PRN PRN Reason: SEVERE CONSITIPATION Clonidine HCl (Catapres) 0.1 mg PO UNSCH PRN PRN Reason: SEE LABEL COMMENTS Diphenhydramine HCl (Benadryl) 25 mg PO UNSCH PRN PRN Reason: SEE LABEL COMMENTS Epoetin Robel (Epogen Inj) 2,000 unit IV.PUSH UNSCH PRN PRN Reason: SEE LABEL COMMENTS Gelatin (Gelfoam 12 Mm/7 Mm Topical) 1 foam TOPICAL PRN PRN PRN Reason: help stop bleeding from site Gentamicin Sulfate (Gentamicin Inj) 20 mg OTHER WITH DIALYSIS PRN PRN Reason: Dwell Gentamycin Lock Heparin Sodium (Porcine) (Heparin Inj) 8,000 units OTHER WITH DIALYSIS PRN PRN Reason: for machine prime Heparin Sodium (Porcine) (Heparin Inj) 1,000 units OTHER WITH DIALYSIS PRN PRN Reason: Dwell Heparin to Fill Catheter Albumin Human (Flexbumin 25% Inj) 100 mls @ 60 mls/hr IV.SIG WITH DIALYSIS PRN PRN Reason: hypotension / volume replace Sodium Chloride (Ns Inj) 1,000 mls @ 0 mls/hr OTHER .Q0M PRN PRN Reason: for prime and rinse back Sodium Chloride (Ns Inj) 1,000 mls @ 200 mls/hr OTHER .Q5H PRN PRN Reason: for dialyzer flush PRN Sodium Chloride (Ns Inj) 1,000 mls @ 0 mls/hr IV.CONT .Q0M PRN PRN Reason: hypotension / volume replace Lactated Ringer's (Lr 1000 Ml Inj) 1,000 mls @ 30 mls/hr IV.CONT .Q24H ONE Stop: 06/26/18 01:29 Sodium Chloride (Ns Inj) 500 mls @ 30 mls/hr IV.CONT .[id number] ONE Stop: 06/25/18 18:09 Lactulose (Lactulose Liq) 30 ml PO DAILY PRN PRN Reason: SEVERE CONSITIPATION Mannitol (Mannitol Inj) 12.5 gm IV.PUSH UNSCH PRN PRN Reason: hypotension / volume replace Nitroglycerin (Nitrostat Sl) 0.4 mg SL Q5M PRN PRN Reason: CHEST PAIN Ondansetron HCl (Zofran Inj) 4 mg IV.PUSH UNSCH PRN PRN Reason: NAUSEA OR VOMITING Ondansetron HCl (Zofran Inj) 4 mg IV.PUSH Q6H PRN PRN Reason: NAUSEA OR VOMITING Senna/Docusate Sodium (Ramandeep-Colace) 1 tab PO BID ROLANDA Last Admin: 06/24/18 22:53 Dose: 1 tab Sennosides (Senokot) 17.2 mg PO Q12H PRN PRN Reason: Moderate Constipation Sodium Chloride (Ns Flush) 5 ml IV.FLUSH PRN PRN PRN Reason: flush each lumen during HD Allergies Allergy/AdvReac Type Severity Reaction Status Date / Time vancomycin Allergy Severe n/a Verified 06/20/18 12:00 Home Medications Medication Instructions Recorded Confirmed Type B complex-vitamin C-folic acid 1 tab PO DAILY 03/26/18 06/24/18 History [Nephro-Andres] allopurinol 100 mg PO Q3W 03/26/18 06/24/18 History carvedilol 25 mg PO BID 03/26/18 06/24/18 History gabapentin 300 mg PO DAILY 03/26/18 06/24/18 History tamsulosin 0.4 mg PO DAILY 03/26/18 06/24/18 History tramadol 50 mg PO BID 03/26/18 06/24/18 History zolpidem 10 mg PO HS PRN 03/26/18 06/24/18 History Physical Exam Vital Signs / I&O: Vital Signs 06/24/18 07:45 06/24/18 07:46 06/24/18 08:33 Temperature Pulse Rate 70 70 Respiratory Rate 16 20 Blood Pressure 116/62 106/61 Pulse Oximetry 99 99 06/24/18 09:09 06/24/18 10:10 06/24/18 13:00 Temperature Pulse Rate 64 70 Respiratory Rate 18 16 Blood Pressure 111/65 124/67 Pulse Oximetry 99 100 06/24/18 13:12 06/24/18 17:00 06/24/18 19:40 Temperature 98 F 98 F Pulse Rate 64 69 61 Respiratory Rate 18 18 18 Blood Pressure 124/67 119/57 L 98/57 L Pulse Oximetry 96 93 L 97 06/24/18 22:25 06/25/18 00:00 06/25/18 00:10 Temperature 98.3 F Pulse Rate 50 L 60 Respiratory Rate 18 Blood Pressure 96/53 L Pulse Oximetry 97 97 06/25/18 04:00 06/25/18 06:36 Temperature 97.9 F Pulse Rate 72 Respiratory Rate 18 Blood Pressure 105/56 L Pulse Oximetry 96 94 L Intake & Output 06/24/18 06/25/18 06/25/18 18:59 06:59 18:59 Intake Total 800 / 800 Output Total 1200 / 1200 Balance -400 / -400 Weight 100.1 kg 101.5 kg Intake: IV 800 / 800 NS Inj 1,000 ML @ 70 mls/hr IV. 700 / 700 CONT .[id number] [facility] Rx#:[id number] Rocephin Inj 1,000 MG In NS Inj 100 / 100 100 ML @ 200 mls/hr IV.SIG ONCE ONE Rx#:[id number] Output: Hemodialysis Amount 1000 / 1000 Urine Amount (Catheter) 200 / 200 Straight 200 / 200 Other: # Voids 3 Date of Last Bowel Movement 06/24/18 06/25/18 # Bowel Movements 1 2 Weight On Admission 100.1 kg Neuro: alert, no distress; CARLIN with good strength; no gross CN deficits HEENT: NC/AT Neck: no JVD Heart: reg rate Lungs: clear R chest wall catheter Vascular: L UE incision healed; + thrill Laboratory Results - last 24 hr 06/24/18 06/24/18 06/24/18 07:51 07:51 07:51 WBC 11.3 H RBC 3.28 L Hgb 10.8 L POC Hgb (Calc) 10.5 L Hct 33.2 L POC Hct 31.0 L MCV 101.4 H MCH 33.0 MCHC 32.6 RDW 16.5 Plt Count 169 MPV 9.0 Neut % (Auto) 80.0 H Lymph % (Auto) 9.9 Surry % (Auto) 9.7 H Eos % (Auto) 0.1 Baso % (Auto) 0.3 Neut # (Auto) 9.0 H Lymph # (Auto) 1.1 Surry # (Auto) 1.1 H Eos # (Auto) 0.0 Baso # (Auto) 0.0 WBC Differential . Differential Comment Auto diff final PT 12.9 H INR 1.3 APTT 31.4 Fibrinogen 459 H Puncture Site Patient Temperature O2 Saturation ABG pH ABG pCO2 ABG pO2 ABG HCO3 ABG O2 Content ABG Base Excess ABG Methemoglobin Luis Test Hemoglobin Carboxyhemoglobin O2 Delivery Device Inspired O2 Critical Value POC Sodium 139 Sodium POC Potassium 4.4 Potassium POC Chloride 105 Chloride Carbon Dioxide Anion Gap POC BUN 37 H BUN Creatinine POC Creatinine 5.3 H Estimated GFR POC Glucose 101 Random Glucose Calcium Prot Corrected Calcium Phosphorus Magnesium Total Bilirubin AST ALT Alkaline Phosphatase Ammonia Total Creatine Kinase 187 Troponin I Less than 0.02 L Total Protein Albumin Vitamin B12 Folate Urine Color Urine Clarity Urine pH Ur Specific Rowley Urine Protein Urine Glucose (UA) Urine Ketones Urine Occult Blood Urine Nitrate Urine Bilirubin Urine Urobilinogen Ur Leukocyte Esterase Urine RBC Urine WBC Amorphous Sediment Urine Bacteria Urine Mucus Micro UA Comment Ur Microscopic Review Urine Culture Comments Urine Opiates Screen Ur Barbiturates Screen Ur Amphetamines Screen U Benzodiazepines Scrn Urine Cocaine Screen U Cannabinoids Screen Hepatitis A IgM Ab Hep Bs Antigen Hep B Core IgM Ab Hep C IgG Ab Blood Type Antibody Screen 06/24/18 06/24/18 06/24/18 07:51 08:30 08:40 WBC RBC Hgb POC Hgb (Calc) Hct POC Hct MCV MCH MCHC RDW Plt Count MPV Neut % (Auto) Lymph % (Auto) Surry % (Auto) Eos % (Auto) Baso % (Auto) Neut # (Auto) Lymph # (Auto) Surry # (Auto) Eos # (Auto) Baso # (Auto) WBC Differential Differential Comment PT INR APTT Fibrinogen Puncture Site Right radial Patient Temperature 98.6 O2 Saturation 95 ABG pH 7.42 ABG pCO2 36 L ABG pO2 104 ABG HCO3 23 ABG O2 Content 13.4 ABG Base Excess -0.7 ABG Methemoglobin 1.5 Luis Test Present Hemoglobin 9.9 L Carboxyhemoglobin 0.8 O2 Delivery Device room air Inspired O2 21 Critical Value No POC Sodium Sodium POC Potassium Potassium POC Chloride Chloride Carbon Dioxide Anion Gap POC BUN BUN Creatinine POC Creatinine Estimated GFR POC Glucose Random Glucose Calcium Prot Corrected Calcium Phosphorus Magnesium Total Bilirubin AST ALT Alkaline Phosphatase Ammonia Less than 10 L Total Creatine Kinase Troponin I Total Protein Albumin Vitamin B12 Folate Urine Color Urine Clarity Urine pH Ur Specific Rowley Urine Protein Urine Glucose (UA) Urine Ketones Urine Occult Blood Urine Nitrate Urine Bilirubin Urine Urobilinogen Ur Leukocyte Esterase Urine RBC Urine WBC Amorphous Sediment Urine Bacteria Urine Mucus Micro UA Comment Ur Microscopic Review Urine Culture Comments Urine Opiates Screen Ur Barbiturates Screen Ur Amphetamines Screen U Benzodiazepines Scrn Urine Cocaine Screen U Cannabinoids Screen Hepatitis A IgM Ab Hep Bs Antigen Hep B Core IgM Ab Hep C IgG Ab Blood Type A Positive Antibody Screen Negative 06/24/18 06/24/18 06/24/18 09:00 09:00 09:00 WBC RBC Hgb POC Hgb (Calc) Hct POC Hct MCV MCH MCHC RDW Plt Count MPV Neut % (Auto) Lymph % (Auto) Surry % (Auto) Eos % (Auto) Baso % (Auto) Neut # (Auto) Lymph # (Auto) Surry # (Auto) Eos # (Auto) Baso # (Auto) WBC Differential Differential Comment PT INR APTT Fibrinogen Puncture Site Patient Temperature O2 Saturation ABG pH ABG pCO2 ABG pO2 ABG HCO3 ABG O2 Content ABG Base Excess ABG Methemoglobin Luis Test Hemoglobin Carboxyhemoglobin O2 Delivery Device Inspired O2 Critical Value POC Sodium Sodium POC Potassium Potassium POC Chloride Chloride Carbon Dioxide Anion Gap POC BUN BUN Creatinine POC Creatinine Estimated GFR POC Glucose Random Glucose Calcium Prot Corrected Calcium Phosphorus 4.5 Magnesium 1.9 Total Bilirubin AST ALT Alkaline Phosphatase Ammonia Total Creatine Kinase Troponin I Total Protein Albumin Vitamin B12 Folate Urine Color Yellow Urine Clarity Hazy H Urine pH 5.0 Ur Specific Rowley 1.013 Urine Protein Negative Urine Glucose (UA) Negative Urine Ketones Negative Urine Occult Blood Negative Urine Nitrate Negative Urine Bilirubin Negative Urine Urobilinogen Less than 2 Ur Leukocyte Esterase Trace H Urine RBC 1 Urine WBC 11 H Amorphous Sediment Rare H Urine Bacteria Occasional H Urine Mucus Few H Micro UA Comment Cath-culture ind Ur Microscopic Review Not Reportable Urine Culture Comments Cath-cult indicated Urine Opiates Screen Neg Ur Barbiturates Screen Neg Ur Amphetamines Screen Neg U Benzodiazepines Scrn Pos H Urine Cocaine Screen Neg U Cannabinoids Screen Neg Hepatitis A IgM Ab Hep Bs Antigen Hep B Core IgM Ab Hep C IgG Ab Blood Type Antibody Screen 06/24/18 06/24/18 06/25/18 11:35 11:35 05:03 WBC 7.4 RBC 3.01 L Hgb 10.0 L POC Hgb (Calc) Hct 30.3 L POC Hct MCV 100.7 H MCH 33.3 MCHC 33.0 RDW 16.2 Plt Count 145 L MPV 9.2 Neut % (Auto) 70.4 H Lymph % (Auto) 17.1 Surry % (Auto) 8.5 H Eos % (Auto) 3.4 Baso % (Auto) 0.6 Neut # (Auto) 5.3 Lymph # (Auto) 1.3 Surry # (Auto) 0.6 Eos # (Auto) 0.3 Baso # (Auto) 0.0 WBC Differential . Differential Comment Auto diff final PT INR APTT Fibrinogen Puncture Site Patient Temperature O2 Saturation ABG pH ABG pCO2 ABG pO2 ABG HCO3 ABG O2 Content ABG Base Excess ABG Methemoglobin Luis Test Hemoglobin Carboxyhemoglobin O2 Delivery Device Inspired O2 Critical Value POC Sodium Sodium POC Potassium Potassium POC Chloride Chloride Carbon Dioxide Anion Gap POC BUN BUN Creatinine POC Creatinine Estimated GFR POC Glucose Random Glucose Calcium Prot Corrected Calcium Phosphorus Magnesium Total Bilirubin AST ALT Alkaline Phosphatase Ammonia Total Creatine Kinase Troponin I Total Protein Albumin Vitamin B12 690 Folate Greater than 20.0 H Urine Color Urine Clarity Urine pH Ur Specific Rowley Urine Protein Urine Glucose (UA) Urine Ketones Urine Occult Blood Urine Nitrate Urine Bilirubin Urine Urobilinogen Ur Leukocyte Esterase Urine RBC Urine WBC Amorphous Sediment Urine Bacteria Urine Mucus Micro UA Comment Ur Microscopic Review Urine Culture Comments Urine Opiates Screen Ur Barbiturates Screen Ur Amphetamines Screen U Benzodiazepines Scrn Urine Cocaine Screen U Cannabinoids Screen Hepatitis A IgM Ab Nonreactive Hep Bs Antigen Nonreactive Hep B Core IgM Ab Nonreactive Hep C IgG Ab Nonreactive Blood Type Antibody Screen 06/25/18 05:03 WBC RBC Hgb POC Hgb (Calc) Hct POC Hct MCV MCH MCHC RDW Plt Count MPV Neut % (Auto) Lymph % (Auto) Surry % (Auto) Eos % (Auto) Baso % (Auto) Neut # (Auto) Lymph # (Auto) Surry # (Auto) Eos # (Auto) Baso # (Auto) WBC Differential Differential Comment PT INR APTT Fibrinogen Puncture Site Patient Temperature O2 Saturation ABG pH ABG pCO2 ABG pO2 ABG HCO3 ABG O2 Content ABG Base Excess ABG Methemoglobin Luis Test Hemoglobin Carboxyhemoglobin O2 Delivery Device Inspired O2 Critical Value POC Sodium Sodium 139 POC Potassium Potassium 4.1 POC Chloride Chloride 102 Carbon Dioxide 26.7 Anion Gap 10 POC BUN BUN 41 H Creatinine 4.86 H POC Creatinine Estimated GFR 12 L POC Glucose Random Glucose 78 Calcium 7.1 L* Prot Corrected Calcium 7.5 L Phosphorus Magnesium Total Bilirubin 0.4 AST 18 ALT 15 Alkaline Phosphatase 104 Ammonia Total Creatine Kinase Troponin I Total Protein 6.4 Albumin 3.1 L Vitamin B12 Folate Urine Color Urine Clarity Urine pH Ur Specific Rowley Urine Protein Urine Glucose (UA) Urine Ketones Urine Occult Blood Urine Nitrate Urine Bilirubin Urine Urobilinogen Ur Leukocyte Esterase Urine RBC Urine WBC Amorphous Sediment Urine Bacteria Urine Mucus Micro UA Comment Ur Microscopic Review Urine Culture Comments Urine Opiates Screen Ur Barbiturates Screen Ur Amphetamines Screen U Benzodiazepines Scrn Urine Cocaine Screen U Cannabinoids Screen Hepatitis A IgM Ab Hep Bs Antigen Hep B Core IgM Ab Hep C IgG Ab Blood Type Antibody Screen Impressions Head MRI 06/24/18 00:00 CONCLUSION: 1. No acute abnormality seen. No areas of infarction are seen on the diffusion- weighted images. 2. Mild cortical atrophy with widening of the sulci. Chest X-Ray 06/24/18 07:47 CONCLUSION: Expiratory chest x-ray without definite acute cardiopulmonary process. Head CT 06/24/18 07:47 CONCLUSION: 1. No acute intracranial abnormality. 2. Mild age-related atrophy. Report was called by Dr. Javed to Dr. Rodgers at 8:10 AM. Head CTA 06/24/18 07:47 CONCLUSION: Negative CTA. Report was called by [Dr. Javed to Dr. Bryant at 8:48 AM.] Neck CTA 06/24/18 07:47 CONCLUSION: Calcified plaque at the left carotid bulb region. However, a significant stenosis is not seen throughout the study. CT CAD 06/24/18 07:50 CONCLUSION: Physiological brain perfusion parameters with RAPID analysis as above. The decision for consideration of therapy is multi factorial and multi disciplinary relying on subjective and objective clinical data. This data is not construed or intended to be the sole determinant of treatment eligibility. Assessment and Plan - Assessment (1) ESRD (end stage renal disease) on dialysis Code(s): N18.6 - End stage renal disease; Z99.2 - Dependence on renal dialysis Status: Acute - Plan AMS likely related to metabolic or BP issues. No focal deficits and work-up negative. I don't see any reason to delay surgery. Discussed with patient and plan on 2nd stage LEFT brachiobasilic AVF today. Site marked. Consents already in pre-op. Erik Singh MD FS FACS VI [phone]
--- NOTE | 2018-06-25 07:55 | P.PNNEU ---
Subjective Active Medications: Active Medications Acetaminophen (Tylenol) 650 mg PO UNSCH PRN PRN Reason: SEE LABEL COMMENTS Acetaminophen (Tylenol) 650 mg PO Q4H PRN PRN Reason: Temp > 100.4 Last Admin: 06/25/18 06:34 Dose: 650 mg Al Hydroxide/Mg Hydroxide (Milk Of Magnsandhya Liq) 30 ml PO Q12H PRN PRN Reason: Mild Constipation Aspirin (Ecotrin) 81 mg PO DAILY ROLANDA Last Admin: 06/24/18 09:25 Dose: 81 mg Bisacodyl (Dulcolax Supp) 10 mg RECTAL DAILY PRN PRN Reason: SEVERE CONSITIPATION Clonidine HCl (Catapres) 0.1 mg PO UNSCH PRN PRN Reason: SEE LABEL COMMENTS Diphenhydramine HCl (Benadryl) 25 mg PO UNSCH PRN PRN Reason: SEE LABEL COMMENTS Epoetin Robel (Epogen Inj) 2,000 unit IV.PUSH UNSCH PRN PRN Reason: SEE LABEL COMMENTS Gelatin (Gelfoam 12 Mm/7 Mm Topical) 1 foam TOPICAL PRN PRN PRN Reason: help stop bleeding from site Gentamicin Sulfate (Gentamicin Inj) 20 mg OTHER WITH DIALYSIS PRN PRN Reason: Dwell Gentamycin Lock Heparin Sodium (Porcine) (Heparin Inj) 8,000 units OTHER WITH DIALYSIS PRN PRN Reason: for machine prime Heparin Sodium (Porcine) (Heparin Inj) 1,000 units OTHER WITH DIALYSIS PRN PRN Reason: Dwell Heparin to Fill Catheter Albumin Human (Flexbumin 25% Inj) 100 mls @ 60 mls/hr IV.SIG WITH DIALYSIS PRN PRN Reason: hypotension / volume replace Sodium Chloride (Ns Inj) 1,000 mls @ 0 mls/hr OTHER .Q0M PRN PRN Reason: for prime and rinse back Sodium Chloride (Ns Inj) 1,000 mls @ 200 mls/hr OTHER .Q5H PRN PRN Reason: for dialyzer flush PRN Sodium Chloride (Ns Inj) 1,000 mls @ 0 mls/hr IV.CONT .Q0M PRN PRN Reason: hypotension / volume replace Lactated Ringer's (Lr 1000 Ml Inj) 1,000 mls @ 30 mls/hr IV.CONT .Q24H ONE Stop: 06/26/18 01:29 Sodium Chloride (Ns Inj) 500 mls @ 30 mls/hr IV.CONT .[id number] ONE Stop: 06/25/18 18:09 Lactulose (Lactulose Liq) 30 ml PO DAILY PRN PRN Reason: SEVERE CONSITIPATION Mannitol (Mannitol Inj) 12.5 gm IV.PUSH UNSCH PRN PRN Reason: hypotension / volume replace Nitroglycerin (Nitrostat Sl) 0.4 mg SL Q5M PRN PRN Reason: CHEST PAIN Ondansetron HCl (Zofran Inj) 4 mg IV.PUSH UNSCH PRN PRN Reason: NAUSEA OR VOMITING Ondansetron HCl (Zofran Inj) 4 mg IV.PUSH Q6H PRN PRN Reason: NAUSEA OR VOMITING Senna/Docusate Sodium (Ramandeep-Colace) 1 tab PO BID ROLANDA Last Admin: 06/24/18 22:53 Dose: 1 tab Sennosides (Senokot) 17.2 mg PO Q12H PRN PRN Reason: Moderate Constipation Sodium Chloride (Ns Flush) 5 ml IV.FLUSH PRN PRN PRN Reason: flush each lumen during HD Allergies/Adverse Reactions: Allergies Allergy/AdvReac Type Severity Reaction Status Date / Time vancomycin Allergy Severe n/a Verified 06/20/18 12:00 Physical Exam Vital signs: Vital Signs 06/24/18 08:33 06/24/18 09:09 06/24/18 10:10 Temperature Pulse Rate 70 64 Respiratory Rate 20 18 Blood Pressure 106/61 111/65 Pulse Oximetry 99 99 100 06/24/18 13:00 06/24/18 13:12 06/24/18 17:00 Temperature 98 F Pulse Rate 70 64 69 Respiratory Rate 16 18 18 Blood Pressure 124/67 124/67 119/57 L Pulse Oximetry 96 93 L 06/24/18 19:40 06/24/18 22:25 06/25/18 00:00 Temperature 98 F 98.3 F Pulse Rate 61 50 L Respiratory Rate 18 18 Blood Pressure 98/57 L 96/53 L Pulse Oximetry 97 97 97 06/25/18 00:10 06/25/18 04:00 06/25/18 06:36 Temperature 97.9 F Pulse Rate 60 69 Respiratory Rate 18 Blood Pressure 105/56 L Pulse Oximetry 96 94 L Intake & Output 06/24/18 06/25/18 06/25/18 18:59 06:59 18:59 Intake Total 800 / 800 Output Total 1200 / 1200 Balance -400 / -400 Weight 100.1 kg 101.5 kg Intake: IV 800 / 800 NS Inj 1,000 ML @ 70 mls/hr IV. 700 / 700 CONT .[id number] [facility] Rx#:[id number] Rocephin Inj 1,000 MG In NS Inj 100 / 100 100 ML @ 200 mls/hr IV.SIG ONCE ONE Rx#:[id number] Output: Hemodialysis Amount 1000 / 1000 Urine Amount (Catheter) 200 / 200 Straight 200 / 200 Other: # Voids 3 Date of Last Bowel Movement 06/24/18 06/25/18 # Bowel Movements 1 2 Weight On Admission 100.1 kg Narrative: awake alert vff face sym / t/o speech clear 2017 - Urinary Catheter Management Straight Cath placed during this visit: no Objective Laboratory Results - last 24 hr 06/24/18 06/24/18 06/24/18 07:51 07:51 07:51 WBC 11.3 H RBC 3.28 L Hgb 10.8 L POC Hgb (Calc) 10.5 L Hct 33.2 L POC Hct 31.0 L MCV 101.4 H MCH 33.0 MCHC 32.6 RDW 16.5 Plt Count 169 MPV 9.0 Neut % (Auto) 80.0 H Lymph % (Auto) 9.9 Robeson % (Auto) 9.7 H Eos % (Auto) 0.1 Baso % (Auto) 0.3 Neut # (Auto) 9.0 H Lymph # (Auto) 1.1 [place] # (Auto) 1.1 H Eos # (Auto) 0.0 Baso # (Auto) 0.0 WBC Differential . Differential Comment Auto diff final PT 12.9 H INR 1.3 APTT 31.4 Fibrinogen 459 H Puncture Site Patient Temperature O2 Saturation ABG pH ABG pCO2 ABG pO2 ABG HCO3 ABG O2 Content ABG Base Excess ABG Methemoglobin Luis Test Hemoglobin Carboxyhemoglobin O2 Delivery Device Inspired O2 Critical Value POC Sodium 139 Sodium POC Potassium 4.4 Potassium POC Chloride 105 Chloride Carbon Dioxide Anion Gap POC BUN 37 H BUN Creatinine POC Creatinine 5.3 H Estimated GFR POC Glucose 101 Random Glucose Calcium Prot Corrected Calcium Phosphorus Magnesium Total Bilirubin AST ALT Alkaline Phosphatase Ammonia Total Creatine Kinase 187 Troponin I Less than 0.02 L Total Protein Albumin Vitamin B12 Folate Urine Color Urine Clarity Urine pH Ur Specific [place] Urine Protein Urine Glucose (UA) Urine Ketones Urine Occult Blood Urine Nitrate Urine Bilirubin Urine Urobilinogen Ur Leukocyte Esterase Urine RBC Urine WBC Amorphous Sediment Urine Bacteria Urine Mucus Micro UA Comment Ur Microscopic Review Urine Culture Comments Urine Opiates Screen Ur Barbiturates Screen Ur Amphetamines Screen U Benzodiazepines Scrn Urine Cocaine Screen U Cannabinoids Screen Hepatitis A IgM Ab Hep Bs Antigen Hep B Core IgM Ab Hep C IgG Ab Blood Type Antibody Screen 06/24/18 06/24/18 06/24/18 07:51 08:30 08:40 WBC RBC Hgb POC Hgb (Calc) Hct POC Hct MCV MCH MCHC RDW Plt Count MPV Neut % (Auto) Lymph % (Auto) Robeson % (Auto) Eos % (Auto) Baso % (Auto) Neut # (Auto) Lymph # (Auto) [place] # (Auto) Eos # (Auto) Baso # (Auto) WBC Differential Differential Comment PT INR APTT Fibrinogen Puncture Site Right radial Patient Temperature 98.6 O2 Saturation 95 ABG pH 7.42 ABG pCO2 36 L ABG pO2 104 ABG HCO3 23 ABG O2 Content 13.4 ABG Base Excess -0.7 ABG Methemoglobin 1.5 Luis Test Present Hemoglobin 9.9 L Carboxyhemoglobin 0.8 O2 Delivery Device room air Inspired O2 21 Critical Value No POC Sodium Sodium POC Potassium Potassium POC Chloride Chloride Carbon Dioxide Anion Gap POC BUN BUN Creatinine POC Creatinine Estimated GFR POC Glucose Random Glucose Calcium Prot Corrected Calcium Phosphorus Magnesium Total Bilirubin AST ALT Alkaline Phosphatase Ammonia Less than 10 L Total Creatine Kinase Troponin I Total Protein Albumin Vitamin B12 Folate Urine Color Urine Clarity Urine pH Ur Specific [place] Urine Protein Urine Glucose (UA) Urine Ketones Urine Occult Blood Urine Nitrate Urine Bilirubin Urine Urobilinogen Ur Leukocyte Esterase Urine RBC Urine WBC Amorphous Sediment Urine Bacteria Urine Mucus Micro UA Comment Ur Microscopic Review Urine Culture Comments Urine Opiates Screen Ur Barbiturates Screen Ur Amphetamines Screen U Benzodiazepines Scrn Urine Cocaine Screen U Cannabinoids Screen Hepatitis A IgM Ab Hep Bs Antigen Hep B Core IgM Ab Hep C IgG Ab Blood Type A Positive Antibody Screen Negative 06/24/18 06/24/18 06/24/18 09:00 09:00 09:00 WBC RBC Hgb POC Hgb (Calc) Hct POC Hct MCV MCH MCHC RDW Plt Count MPV Neut % (Auto) Lymph % (Auto) Rob[place] % (Auto) Eos % (Auto) Baso % (Auto) Neut # (Auto) Lymph # (Auto) [place] # (Auto) Eos # (Auto) Baso # (Auto) WBC Differential Differential Comment PT INR APTT Fibrinogen Puncture Site Patient Temperature O2 Saturation ABG pH ABG pCO2 ABG pO2 ABG HCO3 ABG O2 Content ABG Base Excess ABG Methemoglobin Luis Test Hemoglobin Carboxyhemoglobin O2 Delivery Device Inspired O2 Critical Value POC Sodium Sodium POC Potassium Potassium POC Chloride Chloride Carbon Dioxide Anion Gap POC BUN BUN Creatinine POC Creatinine Estimated GFR POC Glucose Random Glucose Calcium Prot Corrected Calcium Phosphorus 4.5 Magnesium 1.9 Total Bilirubin AST ALT Alkaline Phosphatase Ammonia Total Creatine Kinase Troponin I Total Protein Albumin Vitamin B12 Folate Urine Color Yellow Urine Clarity Hazy H Urine pH 5.0 Ur Specific [place] 1.013 Urine Protein Negative Urine Glucose (UA) Negative Urine Ketones Negative Urine Occult Blood Negative Urine Nitrate Negative Urine Bilirubin Negative Urine Urobilinogen Less than 2 Ur Leukocyte Esterase Trace H Urine RBC 1 Urine WBC 11 H Amorphous Sediment Rare H Urine Bacteria Occasional H Urine Mucus Few H Micro UA Comment Cath-culture ind Ur Microscopic Review Not Reportable Urine Culture Comments Cath-cult indicated Urine Opiates Screen Neg Ur Barbiturates Screen Neg Ur Amphetamines Screen Neg U Benzodiazepines Scrn Pos H Urine Cocaine Screen Neg U Cannabinoids Screen Neg Hepatitis A IgM Ab Hep Bs Antigen Hep B Core IgM Ab Hep C IgG Ab Blood Type Antibody Screen 06/24/18 06/24/18 06/25/18 11:35 11:35 05:03 WBC 7.4 RBC 3.01 L Hgb 10.0 L POC Hgb (Calc) Hct 30.3 L POC Hct MCV 100.7 H MCH 33.3 MCHC 33.0 RDW 16.2 Plt Count 145 L MPV 9.2 Neut % (Auto) 70.4 H Lymph % (Auto) 17.1 [place] % (Auto) 8.5 H Eos % (Auto) 3.4 Baso % (Auto) 0.6 Neut # (Auto) 5.3 Lymph # (Auto) 1.3 [place] # (Auto) 0.6 Eos # (Auto) 0.3 Baso # (Auto) 0.0 WBC Differential . Differential Comment Auto diff final PT INR APTT Fibrinogen Puncture Site Patient Temperature O2 Saturation ABG pH ABG pCO2 ABG pO2 ABG HCO3 ABG O2 Content ABG Base Excess ABG Methemoglobin Luis Test Hemoglobin Carboxyhemoglobin O2 Delivery Device Inspired O2 Critical Value POC Sodium Sodium POC Potassium Potassium POC Chloride Chloride Carbon Dioxide Anion Gap POC BUN BUN Creatinine POC Creatinine Estimated GFR POC Glucose Random Glucose Calcium Prot Corrected Calcium Phosphorus Magnesium Total Bilirubin AST ALT Alkaline Phosphatase Ammonia Total Creatine Kinase Troponin I Total Protein Albumin Vitamin B12 690 Folate Greater than 20.0 H Urine Color Urine Clarity Urine pH Ur Specific [place] Urine Protein Urine Glucose (UA) Urine Ketones Urine Occult Blood Urine Nitrate Urine Bilirubin Urine Urobilinogen Ur Leukocyte Esterase Urine RBC Urine WBC Amorphous Sediment Urine Bacteria Urine Mucus Micro UA Comment Ur Microscopic Review Urine Culture Comments Urine Opiates Screen Ur Barbiturates Screen Ur Amphetamines Screen U Benzodiazepines Scrn Urine Cocaine Screen U Cannabinoids Screen Hepatitis A IgM Ab Nonreactive Hep Bs Antigen Nonreactive Hep B Core IgM Ab Nonreactive Hep C IgG Ab Nonreactive Blood Type Antibody Screen 06/25/18 05:03 WBC RBC Hgb POC Hgb (Calc) Hct POC Hct MCV MCH MCHC RDW Plt Count MPV Neut % (Auto) Lymph % (Auto) [place] % (Auto) Eos % (Auto) Baso % (Auto) Neut # (Auto) Lymph # (Auto) [place] # (Auto) Eos # (Auto) Baso # (Auto) WBC Differential Differential Comment PT INR APTT Fibrinogen Puncture Site Patient Temperature O2 Saturation ABG pH ABG pCO2 ABG pO2 ABG HCO3 ABG O2 Content ABG Base Excess ABG Methemoglobin Luis Test Hemoglobin Carboxyhemoglobin O2 Delivery Device Inspired O2 Critical Value POC Sodium Sodium 139 POC Potassium Potassium 4.1 POC Chloride Chloride 102 Carbon Dioxide 26.7 Anion Gap 10 POC BUN BUN 41 H Creatinine 4.86 H POC Creatinine Estimated GFR 12 L POC Glucose Random Glucose 78 Calcium 7.1 L* Prot Corrected Calcium 7.5 L Phosphorus Magnesium Total Bilirubin 0.4 AST 18 ALT 15 Alkaline Phosphatase 104 Ammonia Total Creatine Kinase Troponin I Total Protein 6.4 Albumin 3.1 L Vitamin B12 Folate Urine Color Urine Clarity Urine pH Ur Specific [place] Urine Protein Urine Glucose (UA) Urine Ketones Urine Occult Blood Urine Nitrate Urine Bilirubin Urine Urobilinogen Ur Leukocyte Esterase Urine RBC Urine WBC Amorphous Sediment Urine Bacteria Urine Mucus Micro UA Comment Ur Microscopic Review Urine Culture Comments Urine Opiates Screen Ur Barbiturates Screen Ur Amphetamines Screen U Benzodiazepines Scrn Urine Cocaine Screen U Cannabinoids Screen Hepatitis A IgM Ab Hep Bs Antigen Hep B Core IgM Ab Hep C IgG Ab Blood Type Antibody Screen Review/Management - Review/Management Plan: imp ctax2 mri eeg abg labs all ok x crf echo nl on asa milner neg med team fu lipid profile ow asa 81 mg ok i will sign off i thought more metabolic
[2018-06-25 08:19] LABS: Chol/HDL Ratio 2.05 Ratio; HDL Cholesterol 51.6 mg/dL (40.0-60.0)
[2018-06-25] MEDS: Senna/Docusate Sodium 8.6/50 MG Tablet PO SCH (08:59)
--- NOTE | 2018-06-25 12:00 | P.PNFP ---
Subjective Interval history: Patient seen and examined at bedside this morning. No acute events overnight. Patient has no complaints this morning, feels great. Awaiting his vascular surgery this morning. He is requested for his telemetry to be discontinued. Educated on the importance of taking one sleeping pill at night. Patient voiced understanding about polypharmacy. Blood pressures were minimally low overnight 98/57 but the patient denies any symptoms overnight. He denies any chest pain, shortness of breath, abdominal pain, problems with urination or defecation today. Questions and concerns were answered at bedside. <Meghan Kothari - 06/25/18 14:49> Results - Labs Result diagrams: 06/25/18 05:03 06/25/18 05:03 <Willam Lobo - 06/25/18 20:05> Abnormal lab results 06/25/18 06/25/18 06/25/18 Range/Units 05:03 05:03 05:03 RBC 3.01 L (4.50-5.90) mil/mm3 Hgb 10.0 L (13.0-17.0) gm/dL Hct 30.3 L (39.0-51.0) % MCV 100.7 H (80.0-100.0) fL Plt Count 145 L (150-450) th/mm3 Neut % (Auto) 70.4 H (16.0-70.0) % Gilliam % (Auto) 8.5 H (0.0-8.0) % BUN 41 H (7-18) mg/dL Creatinine 4.86 H (0.60-1.30) mg/dL Estimated GFR 12 L (>89) mL/min Calcium 7.1 L* (8.5-10.1) mg/dL Prot Corrected Calcium 7.5 L (8.5-10.1) mg/dL Albumin 3.1 L (3.4-5.0) g/dL Triglycerides 36 L (42-150) mg/dL Cholesterol 106 L (120-200) mg/dL Short CBC 06/25/18 Range/Units 05:03 WBC 7.4 (4.0-11.0) th/mm3 Hgb 10.0 L (13.0-17.0) gm/dL Hct 30.3 L (39.0-51.0) % Plt Count 145 L (150-450) th/mm3 [facility] 06/25/18 05:03 Sodium 139 Potassium 4.1 Chloride 102 Carbon Dioxide 26.7 BUN 41 H Creatinine 4.86 H Calcium 7.1 L* Liver Function 06/25/18 Range/Units 05:03 Total Bilirubin 0.4 (0.2-1.0) mg/dL AST 18 (15-37) U/L ALT 15 (12-78) U/L Alkaline Phosphatase 104 (45-117) U/L Albumin 3.1 L (3.4-5.0) g/dL <Willam Lobo - 06/25/18 20:05> Abnormal lab results 06/24/18 06/25/18 06/25/18 Range/Units 11:35 05:03 05:03 RBC 3.01 L (4.50-5.90) mil/mm3 Hgb 10.0 L (13.0-17.0) gm/dL Hct 30.3 L (39.0-51.0) % MCV 100.7 H (80.0-100.0) fL Plt Count 145 L (150-450) th/mm3 Neut % (Auto) 70.4 H (16.0-70.0) % Gilli[place] % (Auto) 8.5 H (0.0-8.0) % BUN 41 H (7-18) mg/dL Creatinine 4.86 H (0.60-1.30) mg/dL Estimated GFR 12 L (>89) mL/min Calcium 7.1 L* (8.5-10.1) mg/dL Prot Corrected Calcium 7.5 L (8.5-10.1) mg/dL Albumin 3.1 L (3.4-5.0) g/dL Triglycerides (42-150) mg/dL Cholesterol (120-200) mg/dL Folate Greater than 20.0 H (3.1-17.5) ng/mL 06/25/18 Range/Units 05:03 RBC (4.50-5.90) mil/mm3 Hgb (13.0-17.0) gm/dL Hct (39.0-51.0) % MCV (80.0-100.0) fL Plt Count (150-450) th/mm3 Neut % (Auto) (16.0-70.0) % [place]illi[place] % (Auto) (0.0-8.0) % BUN (7-18) mg/dL Creatinine (0.60-1.30) mg/dL Estimated GFR (>89) mL/min Calcium (8.5-10.1) mg/dL Prot Corrected Calcium (8.5-10.1) mg/dL Albumin (3.4-5.0) g/dL Triglycerides 36 L (42-150) mg/dL Cholesterol 106 L (120-200) mg/dL Folate (3.1-17.5) ng/mL Short CBC 06/25/18 Range/Units 05:03 WBC 7.4 (4.0-11.0) th/mm3 Hgb 10.0 L (13.0-17.0) gm/dL Hct 30.3 L (39.0-51.0) % Plt Count 145 L (150-450) th/mm3 BMP 06/25/18 05:03 Sodium 139 Potassium 4.1 Chloride 102 Carbon Dioxide 26.7 BUN 41 H Creatinine 4.86 H Calcium 7.1 L* Liver Function 06/25/18 Range/Units 05:03 Total Bilirubin 0.4 (0.2-1.0) mg/dL AST 18 (15-37) U/L ALT 15 (12-78) U/L Alkaline Phosphatase 104 (45-117) U/L Albumin 3.1 L (3.4-5.0) g/dL <Meghan Kothari - 06/25/18 11:59> Physical Exam Vital signs: Vital Signs 06/24/18 22:25 06/25/18 00:00 06/25/18 00:10 Temperature 98.3 F Pulse Rate 50 L 60 Respiratory Rate 18 Blood Pressure 96/53 L Pulse Oximetry 97 97 06/25/18 04:00 06/25/18 06:36 06/25/18 08:00 Temperature 97.9 F 97.9 F Pulse Rate 69 69 Respiratory Rate 18 12 Blood Pressure 105/56 L 99/55 L Pulse Oximetry 96 94 L 97 06/25/18 09:00 06/25/18 10:35 06/25/18 12:00 Temperature 97.8 F Pulse Rate 67 61 Respiratory Rate 18 Blood Pressure 102/58 L Pulse Oximetry 97 95 06/25/18 15:39 06/25/18 15:45 06/25/18 16:00 Temperature 97.6 F Pulse Rate 70 71 69 Respiratory Rate 12 14 14 Blood Pressure 119/68 140/64 118/65 Pulse Oximetry 95 96 93 L 06/25/18 16:15 06/25/18 16:29 06/25/18 16:30 Temperature 97.5 F L Pulse Rate 68 68 Respiratory Rate 15 14 Blood Pressure 115/65 113/66 Pulse Oximetry 100 98 100 06/25/18 16:45 Temperature 97.9 F Pulse Rate 66 Respiratory Rate 14 Blood Pressure 115/68 Pulse Oximetry 95 Intake & Output 06/25/18 06/25/18 06/26/18 06:59 18:59 06:59 Intake Total 500 / 500 Output Total Balance 470 / 470 Weight 101.5 kg Intake: Anesthesia Amount 500 / 500 Output: Estimated Blood Loss Other: # Voids 3 2 Date of Last Bowel Movement 06/25/18 06/25/18 # Bowel Movements 2 2 <Willam Lobo - 06/25/18 20:05> Vital Signs 06/24/18 13:00 06/24/18 13:12 06/24/18 17:00 Temperature 98 F Pulse Rate 70 64 69 Respiratory Rate 16 18 18 Blood Pressure 124/67 124/67 119/57 L Pulse Oximetry 96 93 L 06/24/18 19:40 06/24/18 22:25 06/25/18 00:00 Temperature 98 F 98.3 F Pulse Rate 61 50 L Respiratory Rate 18 18 Blood Pressure 98/57 L 96/53 L Pulse Oximetry 97 97 97 06/25/18 00:10 06/25/18 04:00 06/25/18 06:36 Temperature 97.9 F Pulse Rate 60 69 Respiratory Rate 18 Blood Pressure 105/56 L Pulse Oximetry 96 94 L 06/25/18 08:00 06/25/18 09:00 06/25/18 10:35 Temperature 97.9 F Pulse Rate 69 67 Respiratory Rate 12 Blood Pressure 99/55 L Pulse Oximetry 97 97 Intake & Output 06/24/18 06/25/18 06/25/18 18:59 06:59 18:59 Intake Total 800 / 800 Output Total 1200 / 1200 Balance -400 / -400 Weight 100.1 kg 101.5 kg Intake: IV 800 / 800 NS Inj 1,000 ML @ 70 mls/hr IV. 700 / 700 CONT .[id number] [facility] Rx#:[id number] Rocephin Inj 1,000 MG In NS Inj 100 / 100 100 ML @ 200 mls/hr IV.SIG ONCE ONE Rx#:[id number] Output: Hemodialysis Amount 1000 / 1000 Urine Amount (Catheter) 200 / 200 Straight 200 / 200 Other: # Voids 3 Date of Last Bowel Movement 06/24/18 06/25/18 06/25/18 # Bowel Movements 1 2 Weight On Admission 100.1 kg <Meghan Kothari - 06/25/18 11:59> Narrative: Mental status: patient is alert, awake, and oriented to person, place and time. Well appearing male and in NAD. CVS: Distant heart sounds, regular rate and rhythm, no murmurs. 2+ peripheral pulses in the upper and lower extremities bilaterally. No Pedal edema appreciated bilaterally. Respiratory: Clear bilaterally in all lung miranda. Abdomen: Soft, nontender, bowel sounds present. <ShaniavernellgayMeghan - 06/25/18 15:01> - Urinary Catheter Management Straight Cath placed during this visit: no <Willam Lobo Zuri - 06/25/18 20:05> no <Meghan Kothari - 06/25/18 15:30> Assessment and Plan - Assessment (1) Altered mental status Code(s): R41.82 - Altered mental status, unspecified Status: Acute (2) UTI (urinary tract infection) Code(s): N39.0 - Urinary tract infection, site not specified Status: Acute (3) ESRD (end stage renal disease) on dialysis Code(s): N18.6 - End stage renal disease; Z99.2 - Dependence on renal dialysis Status: Acute (4) Speech abnormality Code(s): R47.9 - Unspecified speech disturbances Status: Resolved (5) Hypertension Code(s): I10 - Essential (primary) hypertension Status: Acute (6) Abstinence from alcohol Code(s): Z78.9 - Other specified health status Status: Acute (7) H/O eye surgery Code(s): Z98.890 - Other specified postprocedural states Status: Acute (8) DVT prophylaxis Status: Acute (9) Nutrition, metabolism, and development symptoms Code(s): R63.8 - Other symptoms and signs concerning food and fluid intake Status: Acute <Willam Lobo - 06/25/18 20:05> (1) Altered mental status Code(s): R41.82 - Altered mental status, unspecified Status: Acute Plan: Patient's altered mental status significantly improved status post dialysis yesterday. Patient also confirms taking multiple sleeping pills overnight. - Altered mental status secondary to polypharmacy. Patient educated on the importance of taking one sleeping pill at night. Patient voiced understanding. - CBC shows macrocytic anemia. MCV dropped to 100.7 from 101.4 today. B12/ Folate within normal limits. Hepatitis panel negative. Continue to monitor. - CMP shows hypocalcemia: will replace with Calcium Gluconate. - Urine culture shows trace leukocyte esterase, elevated WBC. Day 2 Rocephin. - Continue to monitor blood pressures. Delicate with fluid replacement due to CKD. Appreciate nephrology recommendations with fluid status. Will hold Carvedilol and Tamsulosin. - D/C Tele. (2) UTI (urinary tract infection) Code(s): N39.0 - Urinary tract infection, site not specified Status: Acute Plan: Continue on Rocephin 1 g IV daily. (3) ESRD (end stage renal disease) on dialysis Code(s): N18.6 - End stage renal disease; Z99.2 - Dependence on renal dialysis Status: Acute Plan: Consult to nephrology. Appreciate recommendations. Continue with dialysis as scheduled in hospital : Monday, and Monday. Scheduled for Vascular fistula revision today. (4) Speech abnormality Code(s): R47.9 - Unspecified speech disturbances Status: Resolved Plan: Resolved (5) Hypertension Code(s): I10 - Essential (primary) hypertension Status: Acute Plan: Patient currently not hypertensive. Will Hold Carvedilol due to hypotension. Continue to monitor. (6) Abstinence from alcohol Code(s): Z78.9 - Other specified health status Status: Acute Plan: Past history of alcohol abuse. Continue to monitor. Consider CIWA protocol. (7) H/O eye surgery Code(s): Z98.890 - Other specified postprocedural states Status: Acute Plan: Continue home eye drops (8) DVT prophylaxis Status: Acute Plan: SCDs. (9) Nutrition, metabolism, and development symptoms Code(s): R63.8 - Other symptoms and signs concerning food and fluid intake Status: Acute Plan: Fluids: Referred to nephrology due to dialysis. Electrolytes: Monitor and replete as needed. Nutrition: Swallow Eval Passed. Will switch from NPO to liquids after surgery. <Meghan Kothari - 06/25/18 15:30> - Assessment and Plan 73-year-old male presents with altered mental status secondary to a possible fall. Stroke workup negative. Slurred and Slowed speech. Alert and oriented. Neuro Exam unremarkable. Nephrology Consulted. Treating for UTI. Monitoring BPs for Hypotension. Macrocytic Anemia Workup. <Meghan Kothari - 06/25/18 11:59> - Attending Attestation I attest that I had a [id number] encounter with the patient on the same day, and personally performed and documented my assessment and findings in the medical record. The exam, history, and the medical decision-making described in the above note were completed with the assistance of the resident physician. I reviewed and agree with the findings presented except that: no longer on rocephin, only had one time dose in ED. Will leave off treatment unless cultures dictate otherwise. He is doing well today, successfully finished fistula today. will have dialysis here tomorrow and then I expect that he can go home. Again counseled today on risks of taking more medication that prescribed and advised against OTC sleeping pills. <Willam Lobo - 06/25/18 20:05>
[2018-06-25] MEDS ORDERED: Sodium Chlor 0.9% Inj 500 ML IV.SIG ONE (14:00)
[2018-06-25] MEDS ORDERED: Heparin/NS PF Inj 500 ML ONE (15:05)
[2018-06-25] MEDS ORDERED: ceFAZolin 1 GM Premix Inj 1 GM/50 ML FROZ.PIGGY IV.SIG ONE (15:05)
[2018-06-25] MEDS ORDERED: Thrombin Topical 20,000 UNIT Spray Kit TOPICAL ONE (15:05)
[2018-06-25] MEDS ORDERED: Bupivacaine PF 0.5% Inj 10 ML Vial ONE (15:05)
[2018-06-25] MEDS ORDERED: Protamine Sulfate Inj 50 MG/5 ML Vial ONE (15:05)
[2018-06-25] MEDS ORDERED: Heparin 10,000 UNITS/10 ML Vial (for IV use) ONE (15:05)
--- NOTE | 2018-06-25 15:18 | P.OP ---
- Preoperative Diagnosis (1) ESRD (end stage renal disease) on dialysis - Postoperative Diagnosis (1) ESRD (end stage renal disease) on dialysis Date of procedure: 06/25/18 Procedure: L UE AVF revision (2nd stage) Implants: none Anesthesia: GETA Surgeon: Erik Singh MD Dressmaker Helper: Erik Willard Estimated blood loss (mL): 30 IV fluids (mL): 500 Pathology: none sent Operation and Findings: 10mm AVF Good thrill and strong radial Doppler signal after AVF
[2018-06-25] MEDS ORDERED: Morphine Inj 4 MG/ML Vial IV.PUSH PRN (15:19)
[2018-06-25] MEDS ORDERED: fentaNYL Citrate Inj 100 MCG/2 ML Ampul ONE (15:50)
[2018-06-25] MEDS ORDERED: Calcium Gluconate Inj 1 GM in Sodium Chlor 0.9% Inj 100 ML IV.SIG ONE (16:00)
[2018-06-25] MEDS ORDERED: *Promethazine Inj 25 MG/ML Vial PERIprocedural use ONLY ONE (16:17)
--- NOTE | 2018-06-25 17:23 | P.PNNP ---
Subjective Interval history: S/p LUE AVF revision. Denies any shortness of breath, chest pain, nausea, or vomiting. HD planned for tomorrow <Mary Kate Dai - Last Filed: 06/25/18 17:16> Physical Exam Vital signs: Vital Signs 06/24/18 19:40 06/24/18 22:25 06/25/18 00:00 Temperature 98 F 98.3 F Pulse Rate 61 50 L Respiratory Rate 18 18 Blood Pressure 98/57 L 96/53 L Pulse Oximetry 97 97 97 06/25/18 00:10 06/25/18 04:00 06/25/18 06:36 Temperature 97.9 F Pulse Rate 60 69 Respiratory Rate 18 Blood Pressure 105/56 L Pulse Oximetry 96 94 L 06/25/18 08:00 06/25/18 09:00 06/25/18 10:35 Temperature 97.9 F Pulse Rate 69 67 Respiratory Rate 12 Blood Pressure 99/55 L Pulse Oximetry 97 97 06/25/18 12:00 06/25/18 15:39 06/25/18 15:45 Temperature 97.8 F 97.6 F Pulse Rate 61 70 71 Respiratory Rate 18 12 14 Blood Pressure 102/58 L 119/68 140/64 Pulse Oximetry 95 95 96 06/25/18 16:00 06/25/18 16:15 06/25/18 16:29 Temperature Pulse Rate 69 68 Respiratory Rate 14 15 Blood Pressure 118/65 115/65 Pulse Oximetry 93 L 100 98 06/25/18 16:30 Temperature 97.5 F L Pulse Rate 68 Respiratory Rate 14 Blood Pressure 113/66 Pulse Oximetry 100 Intake & Output 06/24/18 06/25/18 06/25/18 18:59 06:59 18:59 Intake Total 800 / 800 500 / 500 Output Total 1200 / 1200 30 / 30 Balance -400 / -400 470 / 470 Weight 100.1 kg 101.5 kg Intake: IV 800 / 800 NS Inj 1,000 ML @ 70 mls/hr IV. 700 / 700 CONT .[id number] [facility] Rx#:[id number] Rocephin Inj 1,000 MG In NS Inj 100 / 100 100 ML @ 200 mls/hr IV.SIG ONCE ONE Rx#:[id number] Anesthesia Amount 500 / 500 Output: Hemodialysis Amount 1000 / 1000 Estimated Blood Loss 30 / 30 Urine Amount (Catheter) 200 / 200 Straight 200 / 200 Other: # Voids 3 Date of Last Bowel Movement 06/24/18 06/25/18 06/25/18 # Bowel Movements 1 2 Weight On Admission 100.1 kg Narrative: GENERAL: Awake and alert, NAD SKIN: Warm and dry. NECK: Supple, trachea midline. No JVD. CARDIOVASCULAR: Regular rate and rhythm without murmurs, gallops, or rubs. Left arm AVF positive thrill and bruit. RESPIRATORY: Breath sounds equal bilaterally. No accessory muscle use. GASTROINTESTINAL: Abdomen soft, non-tender, nondistended. MUSCULOSKELETAL: No cyanosis, or edema. BACK: Nontender without obvious deformity. No CVA tenderness. - Urinary Catheter Management Straight Cath placed during this visit: no <Mary Kate Dai - Last Filed: 06/25/18 17:16> Vital signs: Vital Signs 06/25/18 20:00 06/26/18 00:00 06/26/18 01:00 Temperature 97.9 F 98.1 F Pulse Rate 70 75 Respiratory Rate 18 18 17 Blood Pressure 101/55 L 114/57 L Pulse Oximetry 96 95 06/26/18 04:00 06/26/18 06:30 06/26/18 07:31 Temperature 97.8 F Pulse Rate 74 67 Respiratory Rate 18 17 Blood Pressure 100/54 L Pulse Oximetry 94 L 06/26/18 08:00 06/26/18 12:00 06/26/18 14:48 Temperature 98.7 F 98.2 F Pulse Rate 67 64 Respiratory Rate 16 16 Blood Pressure 103/51 L 83/45 L 86/47 L Pulse Oximetry 94 L 95 Intake & Output 06/25/18 06/26/18 06/26/18 18:59 06:59 18:59 Intake Total 500 / 500 480 / 480 Output Total 30 Balance 470 / 470 480 / 480 Weight 102.5 kg Intake: Oral 480 / 480 Anesthesia Amount 500 / 500 Output: Estimated Blood Loss Other: # Voids 2 2 Date of Last Bowel Movement 06/25/18 06/25/18 06/25/18 # Bowel Movements 2 - Urinary Catheter Management Straight Cath placed during this visit: no <Brooke Doan - Last Filed: 06/26/18 17:30> Assessment and Plan - Assessment (1) ESRD (end stage renal disease) on dialysis Code(s): N18.6 - End stage renal disease; Z99.2 - Dependence on renal dialysis Status: Acute (2) Altered mental status Code(s): R41.82 - Altered mental status, unspecified Status: Acute (3) UTI (urinary tract infection) Code(s): N39.0 - Urinary tract infection, site not specified Status: Acute (4) Hypertension Code(s): I10 - Essential (primary) hypertension Status: Acute - Plan ESRD On Hemodialysis Monday, , Monday Admitted with AMS S/P revision of AVF Mental status has improved, most likely related to polypharmacy Hypocalcemia, replacement given. Epogen with dialysis Hemodialysis planned for tomorrow, will remove fluid as tolerated. <Mary Kate Dai - Last Filed: 06/25/18 17:16> - Assessment (1) ESRD (end stage renal disease) on dialysis Code(s): N18.6 - End stage renal disease; Z99.2 - Dependence on renal dialysis Status: Acute (2) Altered mental status Code(s): R41.82 - Altered mental status, unspecified Status: Acute (3) UTI (urinary tract infection) Code(s): N39.0 - Urinary tract infection, site not specified Status: Acute (4) Hypertension Code(s): I10 - Essential (primary) hypertension Status: Acute - Plan Patient seen and examined, agree with above. BP remain on lower side. Seen after AVF done. HD will be in AM. <Brooke Doan - Last Filed: 06/26/18 17:30>
--- NOTE | 2018-06-25 20:20 | MP ---
cc: Erik Singh MD DATE OF OPERATION: 06/25/2018 PREOPERATIVE DIAGNOSIS: End-stage renal disease, need for dialysis access. POSTOPERATIVE DIAGNOSIS: End-stage renal disease, need for dialysis access. PROCEDURE PERFORMED: Left upper extremity access revision (transposition of an existing brachiobasilic fistula). ATTENDING SURGEON: Eirk Singh MD ANESTHESIA: General. INDICATIONS: Mr. Do is a 73-year-old gentleman with a left upper extremity access. This was done 2 months ago. It is mature by duplex and physical examination and he was brought to the operating room for a planned second stage. DESCRIPTION OF PROCEDURE: Informed consent was obtained from the patient. He was taken to the operating room and placed supine on the operating room table. An appropriate timeout was taken to ensure the patient's identity, operative site and planned procedure. The administration of 2 grams of Ancef was initiated prior to skin incision and will be discontinued after a single preoperative dose. Everyone in the room agreed with the timeout and we proceeded. His left arm was prepped and draped. An incision made in the medial aspect of the upper arm and carried down through the subcutaneous tissue with electrocautery. The basilic vein was identified and dissected free from nearly to the anastomosis all the way up to the axillary vein. Side branches were ligated with 3-0 silk sutures. The vein was clamped proximally and distally, marked for orientation, transected proximally and the proximal end oversewn with 3-0 silk and large Hemoclips. A tunnel was then created on the anterior aspect of the upper arm and the fistula was passed through the tunnel, taking caution not to twist it. The brachial artery was identified and dissected free for several centimeters. The patient was systemically heparinized with 3000 units of IV heparin. Proximal control of the brachial artery was obtained with profunda clamps and a longitudinal arteriotomy was made with an 11 blade and extended with Tyro scissors. The vein was spatulated and sewn end to side with running 6-0 Prolene suture. At the completion, it was flushed and noted to be hemostatic. The clamps were released and there was a nice thrill in the fistula and Doppler signal at the wrist. The heparin was reversed with protamine. The wound was infiltrated with Marcaine, made hemostatic and closed with 2-0 Polysorb, 3-0 Polysorb and 4-0 Monocryl. The sponge and needle counts were correct at the end of the case. I was present and scrubbed and performed the entire procedure. MD ALVINA Navarro/sarahi , 05:38 PM , 05:47 PM
[2018-06-26 04:56] LABS: Hematocrit 28.9 % (39.0-51.0); Hemoglobin 9.5 gm/dL (13.0-17.0); Mean Corpuscular HGB Conc 32.7 % (32.0-36.0); Mean Corpuscular Hemoglobin 32.9 pg (27.0-34.0); Mean Corpuscular Volume 100.6 fL (80.0-100.0); Mean Platelet Volume 9.1 fL (7.0-11.0); Platelet Count 151 th/mm3 (150-450); Red Blood Count 2.87 mil/mm3 (4.50-5.90); Red Cell Distribution Width 16.2 % (11.6-17.2); White Blood Count 7.8 th/mm3 (4.0-11.0)
[2018-06-26 05:18] LABS: Calcium 6.9 mg/dL (8.5-10.1); Phosphorus 6.1 mg/dL (2.5-4.9); Potassium 4.2 meq/L (3.5-5.1)
[2018-06-26 05:25] LABS: Calcium-Albumin Corrected 7.7 mg/dL (8.5-10.1)
[2018-06-26] MEDS: Acetaminophen 325 MG Tablet PO PRN ×3 (05:44→20:47)
[2018-06-26] MEDS: Senna/Docusate Sodium 8.6/50 MG Tablet PO SCH ×2 (07:28→09:48)
--- NOTE | 2018-06-26 08:05 | P.PNVS ---
Subjective Post Op Day #: 1 Procedure: L UE Access revision (superficialization/transposition) Subjective/Hospital Course: looks good this morning pain controlled hand ok Objective Vital Signs / I&O: Vital Signs 06/25/18 09:00 06/25/18 10:35 06/25/18 12:00 Temperature 97.8 F Pulse Rate 67 61 Respiratory Rate 18 Blood Pressure 102/58 L Pulse Oximetry 97 95 06/25/18 15:39 06/25/18 15:45 06/25/18 16:00 Temperature 97.6 F Pulse Rate 70 71 69 Respiratory Rate 12 14 14 Blood Pressure 119/68 140/64 118/65 Pulse Oximetry 95 96 93 L 06/25/18 16:15 06/25/18 16:29 06/25/18 16:30 Temperature 97.5 F L Pulse Rate 68 68 Respiratory Rate 15 14 Blood Pressure 115/65 113/66 Pulse Oximetry 100 98 100 06/25/18 16:45 06/25/18 20:00 06/26/18 00:00 Temperature 97.9 F 97.9 F 98.1 F Pulse Rate 66 70 75 Respiratory Rate 14 18 18 Blood Pressure 115/68 101/55 L 114/57 L Pulse Oximetry 95 96 95 06/26/18 01:00 06/26/18 04:00 06/26/18 06:30 Temperature 97.8 F Pulse Rate 74 Respiratory Rate 17 18 17 Blood Pressure 100/54 L Pulse Oximetry 94 L 06/26/18 07:31 Temperature Pulse Rate 67 Respiratory Rate Blood Pressure Pulse Oximetry Intake & Output 06/25/18 06/26/18 06/26/18 18:59 06:59 18:59 Intake Total 500 / 500 480 / 480 Output Total 30 / 30 Balance 470 / 470 480 / 480 Weight 102.5 kg Intake: Oral 480 / 480 Anesthesia Amount 500 / 500 Output: Estimated Blood Loss 30 / 30 Other: # Voids 2 2 Date of Last Bowel Movement 06/25/18 06/25/18 # Bowel Movements 2 Exam: L UE with expected ecchymoses + thrill hand ok Laboratory Results - last 24 hr 06/25/18 06/25/18 06/26/18 05:03 05:03 04:02 WBC RBC Hgb Hct MCV MCH MCHC RDW Plt Count MPV Sodium 138 Potassium 4.2 Chloride 102 Carbon Dioxide 26.0 Anion Gap 10 BUN 56 H Creatinine 6.37 H Estimated GFR 9 L Random Glucose 122 H Calcium 6.9 L* Calcium Adj for Albumin 7.7 L Phosphorus 4.6 6.1 H D Albumin 3.0 L Triglycerides 36 L Cholesterol 106 L LDL Cholesterol, Calc 47 HDL Cholesterol 51.6 Cholesterol/HDL Ratio 2.05 06/26/18 04:02 WBC 7.8 RBC 2.87 L Hgb 9.5 L Hct 28.9 L MCV 100.6 H MCH 32.9 MCHC 32.7 RDW 16.2 Plt Count 151 MPV 9.1 Sodium Potassium Chloride Carbon Dioxide Anion Gap BUN Creatinine Estimated GFR Random Glucose Calcium Calcium Adj for Albumin Phosphorus Albumin Triglycerides Cholesterol LDL Cholesterol, Calc HDL Cholesterol Cholesterol/HDL Ratio Microbiology 06/24/18 09:00 Urine Culture - Preliminary Catheterized Urine No growth in 24 hours Assessment and Plan - Assessment (1) ESRD (end stage renal disease) on dialysis Code(s): N18.6 - End stage renal disease; Z99.2 - Dependence on renal dialysis Status: Acute - Plan POD#1 s/p L UE Access revision access patent, wound ok; hand ok 1. Clear for discharge from a vascular surgery standpoint 2. Will arrange f/u in 2-3 weeks 3. Operative dressing can be removed tomorrow (MONDAY) at home Discharge Planning: today from a vascular surgery standpoint
--- NOTE | 2018-06-26 09:39 | P.PNNP ---
Subjective Interval history: Denies any shortness of breath, chest pain, nausea, or vomiting. Pain is well controlled. HD today. <Mary Kate Dai - Last Filed: 06/26/18 16:24> Physical Exam Vital signs: Vital Signs 06/25/18 10:35 06/25/18 12:00 06/25/18 15:39 Temperature 97.8 F 97.6 F Pulse Rate 61 70 Respiratory Rate 18 12 Blood Pressure 102/58 L 119/68 Pulse Oximetry 97 95 95 06/25/18 15:45 06/25/18 16:00 06/25/18 16:15 Temperature Pulse Rate 71 69 68 Respiratory Rate 14 14 15 Blood Pressure 140/64 118/65 115/65 Pulse Oximetry 96 93 L 100 06/25/18 16:29 06/25/18 16:30 06/25/18 16:45 Temperature 97.5 F L 97.9 F Pulse Rate 68 66 Respiratory Rate 14 14 Blood Pressure 113/66 115/68 Pulse Oximetry 98 100 95 06/25/18 20:00 06/26/18 00:00 06/26/18 01:00 Temperature 97.9 F 98.1 F Pulse Rate 70 75 Respiratory Rate 18 18 17 Blood Pressure 101/55 L 114/57 L Pulse Oximetry 96 95 06/26/18 04:00 06/26/18 06:30 06/26/18 07:31 Temperature 97.8 F Pulse Rate 74 67 Respiratory Rate 18 17 Blood Pressure 100/54 L Pulse Oximetry 94 L 06/26/18 08:00 Temperature 98.7 F Pulse Rate 67 Respiratory Rate 16 Blood Pressure 103/51 L Pulse Oximetry 94 L Intake & Output 06/25/18 06/26/18 06/26/18 18:59 06:59 18:59 Intake Total 500 / 500 480 / 480 Output Total Balance 470 / 470 480 / 480 Weight 102.5 kg Intake: Oral 480 / 480 Anesthesia Amount 500 / 500 Output: Estimated Blood Loss Other: # Voids 2 2 Date of Last Bowel Movement 06/25/18 06/25/18 # Bowel Movements 2 Narrative: GENERAL: Awake and alert, NAD SKIN: Warm and dry. NECK: Supple, trachea midline. No JVD. CARDIOVASCULAR: Regular rate and rhythm without murmurs, gallops, or rubs. Left arm AVF positive with some mild superficial bruising, overlying bandage is dry and intact RESPIRATORY: Breath sounds equal bilaterally. No accessory muscle use. GASTROINTESTINAL: Abdomen soft, non-tender, nondistended. MUSCULOSKELETAL: No cyanosis, or edema. BACK: Nontender without obvious deformity. No CVA tenderness. - Urinary Catheter Management Straight Cath placed during this visit: no <Mary Kate Dai - Last Filed: 06/26/18 16:24> Vital signs: Vital Signs 06/25/18 20:00 06/26/18 00:00 06/26/18 01:00 Temperature 97.9 F 98.1 F Pulse Rate 70 75 Respiratory Rate 18 18 17 Blood Pressure 101/55 L 114/57 L Pulse Oximetry 96 95 06/26/18 04:00 06/26/18 06:30 06/26/18 07:31 Temperature 97.8 F Pulse Rate 74 67 Respiratory Rate 18 17 Blood Pressure 100/54 L Pulse Oximetry 94 L 06/26/18 08:00 06/26/18 12:00 06/26/18 14:48 Temperature 98.7 F 98.2 F Pulse Rate 67 64 Respiratory Rate 16 16 Blood Pressure 103/51 L 83/45 L 86/47 L Pulse Oximetry 94 L 95 Intake & Output 06/25/18 06/26/18 06/26/18 18:59 06:59 18:59 Intake Total 500 / 500 480 / 480 Output Total 30 / 30 Balance 470 / 470 480 / 480 Weight 102.5 kg Intake: Oral 480 / 480 Anesthesia Amount 500 / 500 Output: Estimated Blood Loss 30 / 30 Other: # Voids 2 2 Date of Last Bowel Movement 06/25/18 06/25/18 06/25/18 # Bowel Movements 2 - Urinary Catheter Management Straight Cath placed during this visit: no <Brooke Doan - Last Filed: 06/26/18 17:31> Assessment and Plan - Assessment (1) ESRD (end stage renal disease) on dialysis Code(s): N18.6 - End stage renal disease; Z99.2 - Dependence on renal dialysis Status: Acute (2) Altered mental status Code(s): R41.82 - Altered mental status, unspecified Status: Acute (3) UTI (urinary tract infection) Code(s): N39.0 - Urinary tract infection, site not specified Status: Acute (4) Hypertension Code(s): I10 - Essential (primary) hypertension Status: Acute - Plan ESRD On Hemodialysis Monday, , Monday Admitted with AMS S/P revision of AVF Altered Mental status has resolved, most likely related to polypharmacy Hypocalcemia, replacement given. Epogen with dialysis Hemodialysis planned for today, will remove fluid as tolerated. <Mary Kate Dai - Last Filed: 06/26/18 16:24> - Assessment (1) ESRD (end stage renal disease) on dialysis Code(s): N18.6 - End stage renal disease; Z99.2 - Dependence on renal dialysis Status: Acute (2) Altered mental status Code(s): R41.82 - Altered mental status, unspecified Status: Acute (3) UTI (urinary tract infection) Code(s): N39.0 - Urinary tract infection, site not specified Status: Acute (4) Hypertension Code(s): I10 - Essential (primary) hypertension Status: Acute - Plan Patient seen and examined, agree with above. Patient has low BP. Not in fluid overload, occ. dizziness on standing. Eating well, not dehydrated. Check Echo., start Midodrine. Hold HD today, HD in AM if BP is stable. <Brooke Doan - Last Filed: 06/26/18 17:31>
--- NOTE | 2018-06-26 10:28 | P.PNFP ---
Subjective Interval history: No acute events overnight. Patient states he is feeling great and is back to baseline. Patient states he is ready to go home after dialysis today. Patient states he tolerated his surgery well yesterday and is passing gas but no bowel movements yet. He states that the surgical site of his fistula is not painful. Denies any fever, chills, chest pain, shortness of breath. <Rodrigo Banuelos - 06/26/18 11:03> Results - Labs Result diagrams: 06/26/18 04:02 06/26/18 04:02 <Willam Lobo - 06/26/18 13:16> Abnormal lab results 06/26/18 06/26/18 Range/Units 04:02 04:02 RBC 2.87 L (4.50-5.90) mil/mm3 Hgb 9.5 L (13.0-17.0) gm/dL Hct 28.9 L (39.0-51.0) % MCV 100.6 H (80.0-100.0) fL BUN 56 H (7-18) mg/dL Creatinine 6.37 H (0.60-1.30) mg/dL Estimated GFR 9 L (>89) mL/min Random Glucose 122 H (74-106) mg/dL Calcium 6.9 L* (8.5-10.1) mg/dL Calcium Adj for Albumin 7.7 L (8.5-10.1) mg/dL Phosphorus 6.1 H D (2.5-4.9) mg/dL Albumin 3.0 L (3.4-5.0) g/dL Short CBC 06/26/18 Range/Units 04:02 WBC 7.8 (4.0-11.0) th/mm3 Hgb 9.5 L (13.0-17.0) gm/dL Hct 28.9 L (39.0-51.0) % Plt Count 151 (150-450) th/mm3 BMP 06/26/18 04:02 Sodium 138 Potassium 4.2 Chloride 102 Carbon Dioxide 26.0 BUN 56 H Creatinine 6.37 H Calcium 6.9 L* Liver Function 06/26/18 Range/Units 04:02 Albumin 3.0 L (3.4-5.0) g/dL <Willam Lobo - 06/26/18 13:16> Abnormal lab results 06/26/18 06/26/18 Range/Units 04:02 04:02 RBC 2.87 L (4.50-5.90) mil/mm3 Hgb 9.5 L (13.0-17.0) gm/dL Hct 28.9 L (39.0-51.0) % MCV 100.6 H (80.0-100.0) fL BUN 56 H (7-18) mg/dL Creatinine 6.37 H (0.60-1.30) mg/dL Estimated GFR 9 L (>89) mL/min Random Glucose 122 H (74-106) mg/dL Calcium 6.9 L* (8.5-10.1) mg/dL Calcium Adj for Albumin 7.7 L (8.5-10.1) mg/dL Phosphorus 6.1 H D (2.5-4.9) mg/dL Albumin 3.0 L (3.4-5.0) g/dL Short CBC 06/26/18 Range/Units 04:02 WBC 7.8 (4.0-11.0) th/mm3 Hgb 9.5 L (13.0-17.0) gm/dL Hct 28.9 L (39.0-51.0) % Plt Count 151 (150-450) th/mm3 BMP 06/26/18 04:02 Sodium 138 Potassium 4.2 Chloride 102 Carbon Dioxide 26.0 BUN 56 H Creatinine 6.37 H Calcium 6.9 L* Liver Function 06/26/18 Range/Units 04:02 Albumin 3.0 L (3.4-5.0) g/dL <Rodrigo Banuelos - 06/26/18 10:28> Physical Exam Vital signs: Vital Signs 06/25/18 15:39 06/25/18 15:45 06/25/18 16:00 Temperature 97.6 F Pulse Rate 70 71 69 Respiratory Rate 12 14 14 Blood Pressure 119/68 140/64 118/65 Pulse Oximetry 95 96 93 L 06/25/18 16:15 06/25/18 16:29 06/25/18 16:30 Temperature 97.5 F L Pulse Rate 68 68 Respiratory Rate 15 14 Blood Pressure 115/65 113/66 Pulse Oximetry 100 98 100 06/25/18 16:45 06/25/18 20:00 06/26/18 00:00 Temperature 97.9 F 97.9 F 98.1 F Pulse Rate 66 70 75 Respiratory Rate 14 18 18 Blood Pressure 115/68 101/55 L 114/57 L Pulse Oximetry 95 96 95 06/26/18 01:00 06/26/18 04:00 06/26/18 06:30 Temperature 97.8 F Pulse Rate 74 Respiratory Rate 17 18 17 Blood Pressure 100/54 L Pulse Oximetry 94 L 06/26/18 07:31 06/26/18 08:00 Temperature 98.7 F Pulse Rate 67 67 Respiratory Rate 16 Blood Pressure 103/51 L Pulse Oximetry 94 L Intake & Output 06/25/18 06/26/18 06/26/18 18:59 06:59 18:59 Intake Total 500 / 500 480 / 480 Output Total 30 / 30 Balance 470 / 470 480 / 480 Weight 102.5 kg Intake: Oral 480 / 480 Anesthesia Amount 500 / 500 Output: Estimated Blood Loss 30 30 Other: # Voids 2 2 Date of Last Bowel Movement 06/25/18 06/25/18 06/25/18 # Bowel Movements 2 <Willam Lobo K - 06/26/18 13:16> Vital Signs 06/25/18 10:35 06/25/18 12:00 06/25/18 15:39 Temperature 97.8 F 97.6 F Pulse Rate 61 70 Respiratory Rate 18 12 Blood Pressure 102/58 L 119/68 Pulse Oximetry 97 95 95 06/25/18 15:45 06/25/18 16:00 06/25/18 16:15 Temperature Pulse Rate 71 69 68 Respiratory Rate 14 14 15 Blood Pressure 140/64 118/65 115/65 Pulse Oximetry 96 93 L 100 06/25/18 16:29 06/25/18 16:30 06/25/18 16:45 Temperature 97.5 F L 97.9 F Pulse Rate 68 66 Respiratory Rate 14 14 Blood Pressure 113/66 115/68 Pulse Oximetry 98 100 95 06/25/18 20:00 06/26/18 00:00 06/26/18 01:00 Temperature 97.9 F 98.1 F Pulse Rate 70 75 Respiratory Rate 18 18 17 Blood Pressure 101/55 L 114/57 L Pulse Oximetry 96 95 06/26/18 04:00 06/26/18 06:30 06/26/18 07:31 Temperature 97.8 F Pulse Rate 74 67 Respiratory Rate 18 17 Blood Pressure 100/54 L Pulse Oximetry 94 L 06/26/18 08:00 Temperature 98.7 F Pulse Rate 67 Respiratory Rate 16 Blood Pressure 103/51 L Pulse Oximetry 94 L Intake & Output 06/25/18 06/26/18 06/26/18 18:59 06:59 18:59 Intake Total 500 / 500 480 / 480 Output Total Balance 470 / 470 480 / 480 Weight 102.5 kg Intake: Oral 480 / 480 Anesthesia Amount 500 / 500 Output: Estimated Blood Loss Other: # Voids 2 2 Date of Last Bowel Movement 06/25/18 06/25/18 06/25/18 # Bowel Movements 2 <Rodrigo Banuelos - 06/26/18 10:28> Narrative: GENERAL: Awake and alert, NAD SKIN: Warm and dry. NECK: Supple, trachea midline. No JVD. CARDIOVASCULAR: Regular rate and rhythm without murmurs, gallops, or rubs. Left arm AVF positive with some mild superficial bruising, overlying bandage is dry and intact RESPIRATORY: Breath sounds equal bilaterally. No accessory muscle use. GASTROINTESTINAL: Abdomen soft, non-tender, nondistended. MUSCULOSKELETAL: No cyanosis, or edema. BACK: Nontender without obvious deformity. No CVA tenderness. <Rodrigo Banuelos - 06/26/18 11:03> - Urinary Catheter Management Straight Cath placed during this visit: no <Willam Lobo - 06/26/18 13:16> no <Rodrigo Banuelos - 06/26/18 11:03> Assessment and Plan - Assessment (1) Altered mental status Code(s): R41.82 - Altered mental status, unspecified Status: Acute (2) UTI (urinary tract infection) Code(s): N39.0 - Urinary tract infection, site not specified Status: Acute (3) ESRD (end stage renal disease) on dialysis Code(s): N18.6 - End stage renal disease; Z99.2 - Dependence on renal dialysis Status: Acute (4) Speech abnormality Code(s): R47.9 - Unspecified speech disturbances Status: Resolved (5) Hypertension Code(s): I10 - Essential (primary) hypertension Status: Acute (6) Abstinence from alcohol Code(s): Z78.9 - Other specified health status Status: Acute (7) H/O eye surgery Code(s): Z98.890 - Other specified postprocedural states Status: Acute (8) DVT prophylaxis Status: Acute (9) Nutrition, metabolism, and development symptoms Code(s): R63.8 - Other symptoms and signs concerning food and fluid intake Status: Acute <Willam Lobo - 06/26/18 13:16> (1) Altered mental status Code(s): R41.82 - Altered mental status, unspecified Status: Acute Plan: -Resolved -Patient's altered mental status significantly improved status post dialysis. Patient also confirms taking multiple sleeping pills overnight. - Altered mental status secondary to polypharmacy. Patient educated on the importance of taking one sleeping pill at night. Patient voiced understanding. - CBC shows macrocytic anemia. MCV dropped to 100.7 from 101.4 today. B12/ Folate within normal limits. Hepatitis panel negative. Continue to monitor. - CMP shows hypocalcemia: will replace with Calcium Gluconate. - Urine culture shows trace leukocyte esterase, elevated WBC. Day 3 Rocephin. Urine culture had no growth after 48 hours, we will not continue on antibiotics at discharge - Continue to monitor blood pressures. Delicate with fluid replacement due to CKD. Appreciate nephrology recommendations with fluid status. Will hold Carvedilol and Tamsulosin. - D/C Tele. (2) UTI (urinary tract infection) Code(s): N39.0 - Urinary tract infection, site not specified Status: Acute Plan: UA on admission showed 11 WBC, occasional bacteria Urine culture with no growth after 48 hours Received 3 doses of Rocephin, we will not discharge on antibiotics (3) ESRD (end stage renal disease) on dialysis Code(s): N18.6 - End stage renal disease; Z99.2 - Dependence on renal dialysis Status: Acute Plan: Consult to nephrology. Appreciate recommendations. Continue with dialysis as scheduled in hospital : Monday, and Monday. Vascular fistula revision performed on 06/25 with no complications We will discharge home after dialysis today (4) Speech abnormality Code(s): R47.9 - Unspecified speech disturbances Status: Resolved Plan: Resolved (5) Hypertension Code(s): I10 - Essential (primary) hypertension Status: Acute Plan: Patient currently not hypertensive. Will Hold Carvedilol due to hypotension. Continue to monitor. (6) Abstinence from alcohol Code(s): Z78.9 - Other specified health status Status: Acute Plan: Past history of alcohol abuse. Continue to monitor. Consider CIWA protocol. (7) H/O eye surgery Code(s): Z98.890 - Other specified postprocedural states Status: Acute Plan: Continue home eye drops (8) DVT prophylaxis Status: Acute Plan: SCDs. (9) Nutrition, metabolism, and development symptoms Code(s): R63.8 - Other symptoms and signs concerning food and fluid intake Status: Acute Plan: Fluids: Referred to nephrology due to dialysis. Electrolytes: Monitor and replete as needed. Nutrition: Tolerating renal diet <Rodrigo Banuelos - 06/26/18 10:53> - Assessment and Plan 73-year-old male presents with altered mental status secondary to a possible fall. Stroke workup negative. Slurred and Slowed speech. Alert and oriented. Altered mental status significantly improved after dialysis on admission. Patient reported taking 3 times his normal dose of Ambien accidentally, suspect polypharmacy as cause of altered mental status. Neuro Exam unremarkable. Nephrology Consulted. Monitoring BPs for Hypotension. Had an abnormal UA on admission was started on Rocephin, however urine culture with no growth after 3 days of discontinuing Rocephin at discharge. Patient scheduled a AV fistula revision on 06/25, so vascular surgery was consulted and completed the revision on 06/25 without complications. Patient underwent dialysis on 06/26 and is safe for discharge. <Rodrigo Banuelos - 06/26/18 11:03> - Attending Attestation The exam, history, and the medical decision-making described in the above note were completed with the assistance of the resident physician. I reviewed and agree with the findings presented. I attest that I had a [id number] encounter with the patient on the same day, and personally performed and documented my assessment and findings in the medical record. Patient admitted for encephalopathy 2/2 Accidental OD of his sleep medications including ambien Today he is feeling great and ready to go home, his biggest complaint is his arthritis actually. has some ecchymoses around fistula but no post op complications. Expect he can discharge if he tolerates dialysis well today. <Willam Lobo - 06/26/18 13:16>
--- NOTE | 2018-06-26 10:31 | P.DS ---
Date of admission: 06/24/18 10:14 Primary care physician: UNKNOWN Brief History from admission: HPI: 73-year-old male with past medical history of CKD on dialysis, hypertension , high blood pressure, arthritis, history of alcoholism presents to the hospital secondary to a fall and was found to have altered mental status. Per patient, he is unaware of why he is in the hospital. He states he remembers yesterday that he was not feeling well, denies any fevers but went to dialysis. They were unable to do dialysis due to his low blood pressure, and therefore gave him a half dose of dialysis. He then left dialysis, continued to feel "lousy" and was feeling weak throughout the day. He says that in the afternoon he felt weak and sat down but denied ever falling. He does not remember what happened throughout the night but remembers being transported to the hospital in a private vehicle by his this morning. He thinks he is here because he has had the "[place]ob[employer]ies" for the past couple days. Denies any falling in the past. He denies any loss of consciousness, headache, chest pain, shortness of breath, abdominal pain, leg pain, problems with urination or defecation. Denies any pain with urination and urinates twice daily. Past medical history: Patient says he has "a ton", unable to articulate medical problems. Per home medications possibly gout, hypertension, insomnia, BPH, neuropathy. Past surgical history: None Allergies: Patient says none but vancomycin noted in chart. Medications: Reconciled by nurse, unable to verify by patient: Allopurinol, carvedilol, gabapentin, tamsulosin, tramadol and zolpidem. Social history: Lives with at home. Denies any drug use. Confirms being an alcoholic years ago, but quit "for a while". Confirms smoking 1 pack/day around 34 years ago. Sexually active with , denies any history of STDs or hepatitis. Review of systems: Noted in HPI. DS: Diagnosis - Discharge Diagnosis (1) Altered mental status Status: Acute (2) UTI (urinary tract infection) Status: Acute (3) ESRD (end stage renal disease) on dialysis Status: Acute (4) Speech abnormality Status: Resolved (5) Hypertension Status: Acute (6) Abstinence from alcohol Status: Acute (7) H/O eye surgery Status: Acute (8) DVT prophylaxis Status: Acute (9) Nutrition, metabolism, and development symptoms Status: Acute DS: Medications - Discharge Medications Prescriptions: acetaminophen 650 mg PO Q4H PRN #42 tab PRN Reason: Temp > 100.4 midodrine 10 mg PO TID #90 tab DS: Summary Hospital Course: 73-year-old male presents with altered mental status. Stroke workup on admission was negative. Slurred and Slowed speech per ED physician, but patient' s mentation returned to baseline upon dialysis on day of admission. Patient reported taking 3 times his normal dose of Ambien accidentally the night prior to admission, suspect polypharmacy as cause of altered mental status. Neuro Exam unremarkable. Nephrology Consulted. Had an abnormal UA on admission was, however urine culture with no growth for 48 hours. Patient scheduled a AV fistula revision on 06/25, so vascular surgery was consulted and completed the revision on 06/25 without complications. Patient was due to undergo dialysis on 06/26, however he was hypotensive and the taxi proprietor preferred to wait another day and start him on mid a drain. Blood pressures improved and patient underwent dialysis on 06/27 with no complications and was discharged home. - Time Spent with Patient Total time spent providing and/or coordinating discharge services: Less than 30 minutes - Quality: VTE Deep Vein Thrombosis/Pulmonary Embolism Present on Admission: No Exam Vital signs: Vital Signs 06/25/18 10:35 06/25/18 12:00 06/25/18 15:39 Temperature 97.8 F 97.6 F Pulse Rate 61 70 Respiratory Rate 18 12 Blood Pressure 102/58 L 119/68 Pulse Oximetry 97 95 95 06/25/18 15:45 06/25/18 16:00 06/25/18 16:15 Temperature Pulse Rate 71 69 68 Respiratory Rate 14 14 15 Blood Pressure 140/64 118/65 115/65 Pulse Oximetry 96 93 L 100 06/25/18 16:29 06/25/18 16:30 06/25/18 16:45 Temperature 97.5 F L 97.9 F Pulse Rate 68 66 Respiratory Rate 14 14 Blood Pressure 113/66 115/68 Pulse Oximetry 98 100 95 06/25/18 20:00 06/26/18 00:00 06/26/18 01:00 Temperature 97.9 F 98.1 F Pulse Rate 70 75 Respiratory Rate 18 18 17 Blood Pressure 101/55 L 114/57 L Pulse Oximetry 96 95 06/26/18 04:00 06/26/18 06:30 06/26/18 07:31 Temperature 97.8 F Pulse Rate 74 67 Respiratory Rate 18 17 Blood Pressure 100/54 L Pulse Oximetry 94 L 06/26/18 08:00 Temperature 98.7 F Pulse Rate 67 Respiratory Rate 16 Blood Pressure 103/51 L Pulse Oximetry 94 L Intake & Output 06/25/18 06/26/18 06/26/18 18:59 06:59 18:59 Intake Total 500 / 500 480 / 480 Output Total Balance 470 / 470 480 / 480 Weight 102.5 kg Intake: Oral 480 / 480 Anesthesia Amount 500 / 500 Output: Estimated Blood Loss Other: # Voids 2 2 Date of Last Bowel Movement 06/25/18 06/25/18 06/25/18 # Bowel Movements 2 Narrative: GENERAL: Awake and alert, NAD SKIN: Warm and dry. NECK: Supple, trachea midline. No JVD. CARDIOVASCULAR: Regular rate and rhythm without murmurs, gallops, or rubs. Left arm AVF positive with some mild superficial bruising, overlying bandage is dry and intact RESPIRATORY: Breath sounds equal bilaterally. No accessory muscle use. GASTROINTESTINAL: Abdomen soft, non-tender, nondistended. MUSCULOSKELETAL: No cyanosis, or edema. BACK: Nontender without obvious deformity. No CVA tenderness. Results Procedures completed during hospitalization: AV fistula revision by vascular surgery Labs on day of discharge: Labs from last 24 hours 06/26/18 06/26/18 04:02 04:02 WBC 7.8 RBC 2.87 L Hgb 9.5 L Hct 28.9 L MCV 100.6 H MCH 32.9 MCHC 32.7 RDW 16.2 Plt Count 151 MPV 9.1 Sodium 138 Potassium 4.2 Chloride 102 Carbon Dioxide 26.0 Anion Gap 10 BUN 56 H Creatinine 6.37 H Estimated GFR 9 L Random Glucose 122 H Calcium 6.9 L* Calcium Adj for Albumin 7.7 L Phosphorus 6.1 H D Albumin 3.0 L - Impressions ITS Impressions Head MRI 06/24/18 00:00 CONCLUSION: 1. No acute abnormality seen. No areas of infarction are seen on the diffusion- weighted images. 2. Mild cortical atrophy with widening of the sulci. Chest X-Ray 06/24/18 07:47 CONCLUSION: Expiratory chest x-ray without definite acute cardiopulmonary process. Head CT 06/24/18 07:47 CONCLUSION: 1. No acute intracranial abnormality. 2. Mild age-related atrophy. Report was called by Dr. Javed to Dr. Rodgers at 8:10 AM. Head CTA 06/24/18 07:47 CONCLUSION: Negative CTA. Report was called by [Dr. Javed to Dr. Bryant at 8:48 AM.] Neck CTA 06/24/18 07:47 CONCLUSION: Calcified plaque at the left carotid bulb region. However, a significant stenosis is not seen throughout the study. CT CAD 06/24/18 07:50 CONCLUSION: Physiological brain perfusion parameters with RAPID analysis as above. The decision for consideration of therapy is multi factorial and multi disciplinary relying on subjective and objective clinical data. This data is not construed or intended to be the sole determinant of treatment eligibility. Discharge Plan - Discharge Disposition Patient Disposition: 01 Discharge Home - Discharge Condition Condition: Stable - Discharge Order Discharge Orders: Discharge Order (Routine); Ordered 06/27/18 Ordered By: Meghan Kothari Vascular Surgery Clear for Discharge (Routine); Ordered 06/26/18 Ordered By: Erik Singh - Physicians Team Primary Care Provider: UNKNOWN, Attending Provider: Willam Lobo Other Providers: Morales Shirley MD ; Willam Lama MD
[2018-06-26] MEDS: Calcium Carbonate 500 MG Tablet PO SCH (20:47)
[2018-06-27] MEDS: Acetaminophen 325 MG Tablet PO PRN (04:04)
[2018-06-27] MEDS: Senna/Docusate Sodium 8.6/50 MG Tablet PO SCH ×2 (08:41→10:03)
[2018-06-27] MEDS ORDERED: Calcitriol 0.25 MCG Capsule PO SCH (09:00)
[2018-06-27 09:26] LABS: Baso % (Auto) 0.5 % (0.0-2.0); Eos # (Auto) 0.3 th/mm3 (0.0-0.4); Eos % (Auto) 4.4 % (0.0-4.0); Hematocrit 27.8 % (39.0-51.0); Hemoglobin 9.2 gm/dL (13.0-17.0); Lymph # (Auto) 1.3 th/mm3 (1.0-4.8); Mean Corpuscular Hemoglobin 33.2 pg (27.0-34.0); Mean Corpuscular Volume 100.6 fL (80.0-100.0); Mean Platelet Volume 9.3 fL (7.0-11.0); Mono # (Auto) 0.4 th/mm3 (0.0-0.9); Mono % (Auto) 6.9 % (0.0-8.0); Neut # (Auto) 3.8 th/mm3 (1.8-7.7); Neut % (Auto) 66.2 % (16.0-70.0); Platelet Count 148 th/mm3 (150-450); Red Blood Count 2.76 mil/mm3 (4.50-5.90); Red Cell Distribution Width 16.5 % (11.6-17.2); White Blood Count 5.8 th/mm3 (4.0-11.0)
--- NOTE | 2018-06-27 09:26 | P.PNFP ---
Subjective Interval history: Patient seen and examined at bedside this morning. Today he says he is feeling fine. Had no complaints overnight. Is ready for his dialysis today. Understands that a new medication has been added to increase his blood pressure. He denies any chest pain, shortness of breath, problems with urination or defecation today. All questions were answered appropriately at bedside. <ShaniavernellMeghan rashid - 06/27/18 09:26> Results - Labs Result diagrams: 06/27/18 08:05 06/27/18 08:05 <Willam Lobo - 06/27/18 15:35> Abnormal lab results 06/27/18 06/27/18 Range/Units 08:05 08:05 RBC 2.76 L (4.50-5.90) mil/mm3 Hgb 9.2 L (13.0-17.0) gm/dL Hct 27.8 L (39.0-51.0) % MCV 100.6 H (80.0-100.0) fL Plt Count 148 L (150-450) th/mm3 Eos % (Auto) 4.4 H (0.0-4.0) % Sodium 134 L (136-145) meq/L BUN 63 H (7-18) mg/dL Creatinine 7.53 H (0.60-1.30) mg/dL Estimated GFR 7 L (>89) mL/min Calcium 7.4 L* (8.5-10.1) mg/dL Calcium Adj for Albumin 7.8 L (8.5-10.1) mg/dL AST 13 L (15-37) U/L ALT 10 L (12-78) U/L Total Protein 6.3 L (6.4-8.2) g/dL Albumin 3.0 L (3.4-5.0) g/dL Short CBC 06/27/18 Range/Units 08:05 WBC 5.8 (4.0-11.0) th/mm3 Hgb 9.2 L (13.0-17.0) gm/dL Hct 27.8 L (39.0-51.0) % Plt Count 148 L (150-450) th/mm3 BMP 06/27/18 08:05 Sodium 134 L Potassium 4.5 Chloride 100 Carbon Dioxide 21.5 BUN 63 H Creatinine 7.53 H Calcium 7.4 L* Liver Function 06/27/18 Range/Units 08:05 Total Bilirubin 0.4 (0.2-1.0) mg/dL AST 13 L (15-37) U/L ALT 10 L (12-78) U/L Alkaline Phosphatase 103 (45-117) U/L Albumin 3.0 L (3.4-5.0) g/dL <Willam Lobo 06/27/18 15:35> Physical Exam Vital signs: Vital Signs 06/26/18 16:00 06/26/18 20:00 06/27/18 00:00 Temperature 98.5 F 97.8 F 97.7 F Pulse Rate 70 78 70 Respiratory Rate 15 18 18 Blood Pressure 92/50 L 94/55 L 102/57 L Pulse Oximetry 95 97 96 06/27/18 00:30 06/27/18 04:00 06/27/18 08:00 Temperature 97.4 F L 97.7 F Pulse Rate 73 69 Respiratory Rate 18 18 18 Blood Pressure 100/61 90/53 L Pulse Oximetry 95 96 06/27/18 11:10 06/27/18 12:00 Temperature 97.5 F L Pulse Rate 68 Respiratory Rate 18 Blood Pressure 104/55 L Pulse Oximetry 96 92 L Intake & Output 06/26/18 06/27/18 06/27/18 18:59 06:59 18:59 Intake Total 960 / 960 Balance 960 / 960 Weight 97.9 kg Intake: Oral 960 / 960 Other: Date of Last Bowel Movement 06/25/18 06/25/18 06/25/18 <Willam Lobo 06/27/18 15:35> Vital Signs 06/26/18 12:00 06/26/18 14:48 06/26/18 16:00 Temperature 98.2 F 98.5 F Pulse Rate 64 70 Respiratory Rate 16 15 Blood Pressure 83/45 L 86/47 L 92/50 L Pulse Oximetry 95 95 06/26/18 20:00 06/27/18 00:00 06/27/18 00:30 Temperature 97.8 F 97.7 F Pulse Rate 78 70 Respiratory Rate 18 18 18 Blood Pressure 94/55 L 102/57 L Pulse Oximetry 97 96 06/27/18 04:00 Temperature 97.4 F L Pulse Rate 73 Respiratory Rate 18 Blood Pressure 100/61 Pulse Oximetry 95 Intake & Output 06/26/18 06/27/18 06/27/18 18:59 06:59 18:59 Intake Total 960 / 960 Balance 960 / 960 Weight 97.9 kg Intake: Oral 960 / 960 Other: Date of Last Bowel Movement 06/25/18 06/25/18 <Meghan Kothari - 06/27/18 09:26> Narrative: GENERAL: Awake and alert, NAD SKIN: Warm and dry. NECK: Supple, trachea midline. No JVD. CARDIOVASCULAR: Regular rate and rhythm without murmurs, gallops, or rubs. Left arm AVF positive with some mild superficial bruising, overlying bandage is dry and intact RESPIRATORY: Breath sounds equal bilaterally. No accessory muscle use. GASTROINTESTINAL: Abdomen soft, non-tender, nondistended. MUSCULOSKELETAL: No cyanosis, or edema. BACK: Nontender without obvious deformity. No CVA tenderness. <ShaniavernellJonah rashidMeghan - 06/27/18 09:26> - Urinary Catheter Management Straight Cath placed during this visit: no <Willam Lobo Zuri - 06/27/18 15:35> no <Meghan Kothari - 06/27/18 10:03> Assessment and Plan - Assessment (1) Altered mental status Code(s): R41.82 - Altered mental status, unspecified Status: Acute (2) UTI (urinary tract infection) Code(s): N39.0 - Urinary tract infection, site not specified Status: Acute (3) ESRD (end stage renal disease) on dialysis Code(s): N18.6 - End stage renal disease; Z99.2 - Dependence on renal dialysis Status: Acute (4) Speech abnormality Code(s): R47.9 - Unspecified speech disturbances Status: Resolved (5) Hypertension Code(s): I10 - Essential (primary) hypertension Status: Acute (6) Abstinence from alcohol Code(s): Z78.9 - Other specified health status Status: Acute (7) H/O eye surgery Code(s): Z98.890 - Other specified postprocedural states Status: Acute (8) DVT prophylaxis Status: Acute (9) Nutrition, metabolism, and development symptoms Code(s): R63.8 - Other symptoms and signs concerning food and fluid intake Status: Acute <Willam Lobo - 06/27/18 15:35> (1) Altered mental status Code(s): R41.82 - Altered mental status, unspecified Status: Acute Plan: -Resolved -Patient's altered mental status significantly improved status post dialysis. Patient also confirms taking multiple sleeping pills overnight. - Altered mental status secondary to polypharmacy. Patient educated on the importance of taking one sleeping pill at night. Patient voiced understanding. - CBC shows macrocytic anemia. MCV dropped to 100.7 from 101.4. B12/Folate within normal limits. Hepatitis panel negative. - Midodrine 10 mg PO TID added for hypotension. (2) UTI (urinary tract infection) Code(s): N39.0 - Urinary tract infection, site not specified Status: Acute Plan: UA on admission showed 11 WBC, occasional bacteria Urine culture with no growth after 48 hours Received 3 doses of Rocephin, we will not discharge on antibiotics (3) ESRD (end stage renal disease) on dialysis Code(s): N18.6 - End stage renal disease; Z99.2 - Dependence on renal dialysis Status: Acute Plan: Consult to nephrology. Appreciate recommendations. Continue with dialysis as scheduled in hospital : Monday, and Monday. Vascular fistula revision performed on 06/25 with no complications Did not discharge yesterday due to no HD because of low BP. HD today. Will discharge home after dialysis today (4) Speech abnormality Code(s): R47.9 - Unspecified speech disturbances Status: Resolved Plan: Resolved (5) Hypertension Code(s): I10 - Essential (primary) hypertension Status: Acute Plan: Patient currently not hypertensive. Will Hold Carvedilol due to hypotension. Continue to monitor. (6) Abstinence from alcohol Code(s): Z78.9 - Other specified health status Status: Acute Plan: Past history of alcohol abuse. Continue to monitor. Consider CIWA protocol. (7) H/O eye surgery Code(s): Z98.890 - Other specified postprocedural states Status: Acute Plan: Continue home eye drops (8) DVT prophylaxis Status: Acute Plan: SCDs. (9) Nutrition, metabolism, and development symptoms Code(s): R63.8 - Other symptoms and signs concerning food and fluid intake Status: Acute Plan: Fluids: Referred to nephrology due to dialysis. Electrolytes: Monitor and replete as needed. Nutrition: Tolerating renal diet <Meghan Kothari - 06/27/18 10:03> - Assessment and Plan 73-year-old male presents with altered mental status secondary to a possible fall. Stroke workup negative. Slurred and Slowed speech. Alert and oriented. Altered mental status significantly improved after dialysis on admission. Patient reported taking 3 times his normal dose of Ambien accidentally, suspect polypharmacy as cause of altered mental status. Neuro Exam unremarkable. Nephrology Consulted. Monitoring BPs for Hypotension. Had an abnormal UA on admission was started on Rocephin, however urine culture with no growth after 3 days of discontinuing Rocephin at discharge. Patient scheduled a AV fistula revision on 06/25, so vascular surgery was consulted and completed the revision on 06/25 without complications. Patient underwent dialysis on 06/27 and is safe for discharge. <Meghan Kothari - 06/27/18 10:03> Discussed Condition With: Dr. Lobo <Meghan Kothari - 06/27/18 10:02> - Attending Attestation The exam, history, and the medical decision-making described in the above note were completed with the assistance of the resident physician. I reviewed and agree with the findings presented. I attest that I had a [id number] encounter with the patient on the same day, and personally performed and documented my assessment and findings in the medical record. Mr Do still feels great today. He is not lightheaded, he is ambulating without problem, no cp/sob/vertigo or confusion. no dysuria. His fistula revision site is a little more ecchymotic but lungs clear and RRR. Midodrine started by nephrology and hopefully BPs tolerate dialysis today so he can go home afterwards. <Willam Lobo - 06/27/18 15:35>
[2018-06-27 10:02] LABS: Calcium 7.4 mg/dL (8.5-10.1); Carbon Dioxide 21.5 meq/L (21.0-32.0); Potassium 4.5 meq/L (3.5-5.1); Total Protein 6.3 g/dL (6.4-8.2)
[2018-06-27] MEDS: Calcium Acetate 667 MG Capsule PO SCH ×3 (10:21→18:58)
[2018-06-27] MEDS: Calcium Carbonate 500 MG Tablet PO SCH (10:22)
--- NOTE | 2018-06-27 10:59 | P.PNNP ---
Subjective Interval history: Sitting on side of bed. Blood pressure on lower side with SBP in 90-100's, on midodrine TID. Hemodialysis planned for today. Physical Exam Vital signs: Vital Signs 06/26/18 12:00 06/26/18 14:48 06/26/18 16:00 Temperature 98.2 F 98.5 F Pulse Rate 64 70 Respiratory Rate 16 15 Blood Pressure 83/45 L 86/47 L 92/50 L Pulse Oximetry 95 95 06/26/18 20:00 06/27/18 00:00 06/27/18 00:30 Temperature 97.8 F 97.7 F Pulse Rate 78 70 Respiratory Rate 18 18 18 Blood Pressure 94/55 L 102/57 L Pulse Oximetry 97 96 06/27/18 04:00 06/27/18 08:00 Temperature 97.4 F L 97.7 F Pulse Rate 73 69 Respiratory Rate 18 18 Blood Pressure 100/61 90/53 L Pulse Oximetry 95 96 Intake & Output 06/26/18 06/27/18 06/27/18 18:59 06:59 18:59 Intake Total 960 / 960 Balance 960 / 960 Weight 97.9 kg Intake: Oral 960 / 960 Other: Date of Last Bowel Movement 06/25/18 06/25/18 Narrative: GENERAL: Awake and alert, NAD SKIN: Warm and dry. NECK: Supple, trachea midline. No JVD. CARDIOVASCULAR: Regular rate and rhythm without murmurs, gallops, or rubs. Left arm AVF positive with some mild superficial bruising, overlying bandage is dry and intact RESPIRATORY: Breath sounds equal bilaterally. No accessory muscle use. GASTROINTESTINAL: Abdomen soft, non-tender, nondistended. MUSCULOSKELETAL: No cyanosis, or edema. BACK: Nontender without obvious deformity. No CVA tenderness. - Urinary Catheter Management Straight Cath placed during this visit: no Assessment and Plan - Assessment (1) ESRD (end stage renal disease) on dialysis Code(s): N18.6 - End stage renal disease; Z99.2 - Dependence on renal dialysis Status: Acute (2) Altered mental status Code(s): R41.82 - Altered mental status, unspecified Status: Acute (3) UTI (urinary tract infection) Code(s): N39.0 - Urinary tract infection, site not specified Status: Acute (4) Hypertension Code(s): I10 - Essential (primary) hypertension Status: Acute - Plan ESRD On Hemodialysis Monday, , Monday Admitted with AMS S/P revision of AVF Altered Mental status has resolved. Hypocalcemia improved. Epogen with dialysis ECHO results reviewed. Hemodialysis planned for today, unable to do yesterday secondary to hypotension Midodrine 10 mg TID has been added. Discussed with nursing about administering midodrine 30 minutes prior to dialysis.
--- NOTE | 2018-06-27 12:47 | ECHRPT ---
Indication: Syncope CONCLUSIONS Normal left ventricular size. Wall thickness is measured at the upper limits of normal. The left ventricular systolic function is normal with an estimated ejection fraction in the range of 55-60%. A pacemaker wire is noted. The left atrial size is mildly dilated. Mild mitral valve regurgitation. Aortic valve sclerosis is present. There is mild tricuspid valve regurgitation. The estimated pulmonary arterial pressure is 44 mmHg. The inferior vena cava is dilated. BP: 86 / 54 HR: 75 Rhythm: MEASUREMENTS (Male / Female) Normal Values Technical Quality:Good 2D ECHO LV Diastolic Diameter PLAX 5.3 cm 4.2 - 5.9 / 3.9 - 5.3 cm LV Systolic Diameter PLAX 3.4 cm IVS Diastolic Thickness 1.0 cm 0.6 - 1.0 / 0.6 - 0.9 cm LVPW Diastolic Thickness 1.0 cm 0.6 - 1.0 / 0.6 - 0.9 cm LV Relative Wall Thickness 0.4 RV Internal Dim ED PLAX 3.6 cm LVOT Diameter 1.9 cm Aortic Root Diameter 3.1 cm LA Systolic Diameter LX 4.3 cm 3.0 - 4.0 / 2.7 - 3.8 cm DOPPLER AV Peak Velocity 196.0 cm/s AV Peak Gradient 15.4 mmHg LVOT Peak Velocity 105.0 cm/s LVOT Peak Gradient 4.4 mmHg AV Area Cont Eq pk 1.5 cm Mitral E Point Velocity 105.0 cm/s Mitral A Point Velocity 56.8 cm/s Mitral E to A Ratio 1.8 LV E' Lateral Velocity 12.7 cm/s Mitral E to LV E' Lateral Ratio 8.3 LV E' Septal Velocity 6.9 cm/s Mitral E to LV E' Septal Ratio 15.2 TR Peak Velocity 292.0 cm/s TR Peak Gradient 34.1 mmHg Right Atrial Pressure 10.0 mmHg Pulmonary Artery Systolic Pressu 44.1 mmHg Right Ventricular Systolic Press 44.1 mmHg PV Peak Velocity 119.0 cm/s PV Peak Gradient 5.7 mmHg FINDINGS LEFT VENTRICLE Normal left ventricular size. Wall thickness is measured at the upper limits of normal. The left ventricular systolic function is normal with an estimated ejection fraction in the range of 55-60%. RIGHT VENTRICLE A pacemaker wire is noted. LEFT ATRIUM The left atrial size is mildly dilated. RIGHT ATRIUM The right atrial size is normal. ATRIAL SEPTUM Normal atrial septal thickness without atrial level shunting by limited color doppler interrogation. AORTA The aortic root and proximal ascending aorta are normal in size on limited imaging. MITRAL VALVE Mild mitral valve regurgitation. AORTIC VALVE Trileaflet aortic valve. Aortic valve sclerosis is present. TRICUSPID VALVE There is mild tricuspid valve regurgitation. The estimated pulmonary arterial pressure is 44 mmHg. PULMONARY VALVE No pulmonary valve regurgitation or stenosis. VESSELS The inferior vena cava is dilated. PERICARDIUM No pericardial effusion. Stanislaw Lozano MD, FACC (Electronically Signed) Final Date:27 June 2018 12:46
== END 2018-06-27 19:20 | disposition home or self-care (01) ==
LOC: NEPC 07:44 → NEDA 10:14 → N06 16:16
PROVIDERS: ADMIT Family Medicine; ATTEND Family Medicine